=== PATIENT | male | born 1990 | race Caucasian/White ===

== ENCOUNTER 2016-10-31 17:39 | Emergency (ER) | payer OTHER ==
[2016-10-31 17:55] VITALS: BP 109/65; PULSE 87; RESP 20; TEMP 97.3
--- NOTE | 2016-10-31 19:17 | ED ---
General Adult HPI - General Chief complaint: Psychiatric Symptoms Stated complaint: Anxiety Time Seen by Provider: 10/31/16 18:33 Source: patient, RN notes reviewed Mode of arrival: ambulatory Limitations: no limitations - History of Present Illness Initial comments: Patient is a pleasant 26-year-old male presenting to the emergency department complaining of anxiety. Patient states his anxiety has been increased recently. Patient has been off his Effexor and Xanax for approximately 6 weeks. Patient developed the primary care physician today however they were unwilling to prescribe medications. Patient was given a follow-up for psychiatry however he will take 4-6 weeks to get in there. Patient omits to being depressed. Patient has stressors regarding recent divorce and sick father and increase work hours. Patient has been anxious. Patient denies suicidal ideation or thoughts. - Related Data Home Medications Medication Instructions Recorded Confirmed ALPRAZolam [Xanax] 2 mg PO BID PRN 10/31/16 10/31/16 Calcium Carbonate [Tums] 500 mg PO TID PRN 10/31/16 10/31/16 Ibuprofen [Motrin] 600 mg PO DAILY PRN 10/31/16 10/31/16 Multivitamins, Thera [Multivitamin 1 tab PO DAILY 10/31/16 10/31/16 (formulary)] Ranitidine HCl [Zantac] 75 mg PO DAILY PRN 10/31/16 10/31/16 Venlafaxine HCl [Effexor] 50 mg PO DAILY 10/31/16 10/31/16 Previous Rx's Medication Instructions Recorded ALPRAZolam [Xanax] 0.5 mg PO Q8HR PRN #10 tablet 10/31/16 Allergies Allergy/AdvReac Type Severity Reaction Status Date / Time No Known Allergies Allergy Verified 10/31/16 18:16 Review of Systems ROS Statement: Those systems with pertinent positive or pertinent negative responses have been documented in the HPI. ROS Other: All systems not noted in ROS Statement are negative. Constitutional: Denies: fever Eyes: Denies: eye pain ENT: Denies: ear pain Respiratory: Denies: cough Cardiovascular: Denies: chest pain Endocrine: Denies: fatigue Gastrointestinal: Denies: abdominal pain Genitourinary: Denies: urgency Skin: Denies: rash Neurological: Denies: headache Psychiatric: Reports: anxiety, depression. Denies: suicidal thoughts Past Medical History Past Medical History: Hypertension Additional Past Medical History / Comment(s): Severe anxiety, migraines, chronic back pain, difficulty with focusing attention. History of Any Multi-Drug Resistant Organisms: None Reported Past Surgical History: Orthopedic Surgery Additional Past Surgical History / Comment(s): Left wrist open reduction internal fixation Past Anesthesia/Blood Transfusion Reactions: No Reported Reaction Past Psychological History: Anxiety, Depression Smoking Status: Current every day smoker Past Alcohol Use History: Occasional Past Drug Use History: Marijuana - Past Family History Father Family Medical History: Cancer, CVA/TIA, Myocardial Infarction ([place]) Additional Family Medical History / Comment(s): Father is alive at age 58. Patient states he has a rare cancer and undergoing chemotherapy. Mother Family Medical History: Coronary Artery Disease (CAD), Hypertension, Syncope Additional Family Medical History / Comment(s): Mother is alive at age 54 and also has history of anxiety and depression. Sister(s) History Unknown: Yes Family Medical History: No Reported History (Patient has one sister with anxiety and depression) General Exam Limitations: no limitations General appearance: alert, in no apparent distress Head exam: Present: atraumatic Eye exam: Present: normal appearance, PERRL ENT exam: Present: normal oropharynx Neck exam: Present: normal inspection Respiratory exam: Present: normal lung sounds bilaterally Cardiovascular Exam: Present: regular rate, normal rhythm GI/Abdominal exam: Present: soft. Absent: tenderness Extremities exam: Present: normal inspection Neurological exam: Present: alert Psychiatric exam: Present: normal affect, normal mood Skin exam: Present: normal color Course Vital Signs 10/31/16 17:49 Temperature 97.3 F L Pulse Rate 87 Respiratory 20 Rate Blood Pressure 109/65 O2 Sat by Pulse 100 Oximetry Disposition Clinical Impression: Depression, Acute anxiety Disposition: HOME SELF-CARE Condition: Stable Instructions: Depression (ED), Anxiety (ED) Additional Instructions: Please follow-up with psychiatrist and primary care physician this week. Return for increased depression, thoughts of self-harm, worsening symptoms or other concerns. Prescriptions: ALPRAZolam [Xanax] 0.5 mg PO Q8HR PRN #10 tablet PRN Reason: Anxiety Referrals: None,Stated [Primary Care Provider] - 1-2 days Adam Martinez MD [STAFF PHYSICIAN] - 1-2 days Rupesh Monroy DO [Medical Doctor] - 1-2 days Time of Disposition: 19:17
== END 2016-10-31 19:32 | disposition home or self-care (01) ==
LOC: EC 17:39
DX: F32.9 Major depressive disorder, single episode, unspecified (principal); F41.9 Anxiety disorder, unspecified; I10 Essential (primary) hypertension; F17.200 Nicotine dependence, unspecified, uncomplicated; Z79.899 Other long term (current) drug therapy
CPT/HCPCS: 82075; 99284

== ENCOUNTER 2016-12-04 11:31 | Emergency (ER) | payer OTHER ==
[2016-12-04] MEDS ORDERED: IBUPROFEN 800 MG TAB PO STA (11:52)
[2016-12-04] MEDS ORDERED: ACETAMINOPHEN TAB 500 MG TAB PO STA (11:52)
--- NOTE | 2016-12-04 11:56 | ED ---
General Adult HPI - General Chief complaint: Neuro Symptoms/Deficit Stated complaint: rt leg numbness x 2 days Time Seen by Provider: 12/04/16 11:35 Source: patient, RN notes reviewed Mode of arrival: wheelchair Limitations: no limitations - History of Present Illness Initial comments: This is a 26-year-old male presents emergency Department stating that he fell asleep on the couch and he landed on his right hip since then his right hip is been very tender and he has some tingling down the right lateral aspect of his leg onto the top of his foot. Patient denies any weakness patient denies any complete numbness. Patient denies any other pain or problems when I mention that he had a low-grade fever he was unaware. Patient states he's had no cough no sore throat no ear pain. Patient denies any difficulty breathing or shortness of breath. Patient denies any dysuria hematuria urinary frequency. Patient denies any cuts or lacerations recently. - Related Data Home Medications Medication Instructions Recorded Confirmed ALPRAZolam [Xanax] 2 mg PO BID PRN 10/31/16 12/04/16 Multivitamins, Thera [Multivitamin 1 tab PO DAILY 10/31/16 12/04/16 (formulary)] Cholecalciferol [Vitamin D3] 1,000 unit PO DAILY 12/04/16 12/04/16 buPROPion HCL [Wellbutrin XL] 300 mg PO DAILY 12/04/16 12/04/16 Previous Rx's Medication Instructions Recorded Ibuprofen [Motrin] 600 mg PO Q6HR PRN #20 tab 12/04/16 Allergies Allergy/AdvReac Type Severity Reaction Status Date / Time No Known Allergies Allergy Verified 12/04/16 12:10 Review of Systems ROS Statement: Those systems with pertinent positive or pertinent negative responses have been documented in the HPI. ROS Other: All systems not noted in ROS Statement are negative. Past Medical History Past Medical History: Hypertension Additional Past Medical History / Comment(s): Severe anxiety, migraines, chronic back pain, difficulty with focusing attention. History of Any Multi-Drug Resistant Organisms: None Reported Past Surgical History: Orthopedic Surgery Additional Past Surgical History / Comment(s): Left wrist open reduction internal fixation Past Anesthesia/Blood Transfusion Reactions: No Reported Reaction Past Psychological History: Anxiety, Depression Smoking Status: Current every day smoker Past Alcohol Use History: Occasional Past Drug Use History: None Reported - Past Family History Father Family Medical History: Cancer, CVA/TIA, Myocardial Infarction ([place]) Additional Family Medical History / Comment(s): Father is alive at age 58. Patient states he has a rare cancer and undergoing chemotherapy. Mother Family Medical History: Coronary Artery Disease (CAD), Hypertension, Syncope Additional Family Medical History / Comment(s): Mother is alive at age 54 and also has history of anxiety and depression. Sister(s) History Unknown: Yes Family Medical History: No Reported History (Patient has one sister with anxiety and depression) General Exam - General Exam Comments Initial Comments: GENERAL: Patient is well-developed and well-nourished. Patient is nontoxic and well- hydrated and is in mild distress. ENT: Neck is soft and supple. No significant lymphadenopathy is noted. Oropharynx is clear. Moist mucous membranes. Neck has full range of motion without eliciting any pain. EYES: The sclera were anicteric and conjunctiva were pink and moist. Extraocular movements were intact and pupils were equal round and reactive to light. Eyelids were unremarkable. PULMONARY: Unlabored respirations. Good breath sounds bilaterally. No audible rales rhonchi or wheezing was noted. CARDIOVASCULAR: There is a regular rate and rhythm without any murmurs gallops or rubs. ABDOMEN: Soft and nontender with normal bowel sounds. SKIN: Skin is clear with no lesions or rashes and otherwise unremarkable. NEUROLOGIC: Patient is alert and oriented x3. Cranial nerves II through XII are grossly intact. Patient has normal motor function of his right leg however sensation in the lateral aspect of the leg is decreased. Normal speech, volume and content. Symmetrical smile. MUSCULOSKELETAL: Normal extremities with adequate strength and full range of motion. Patient has some tenderness to the lateral aspect of his right hip. LYMPHATICS: No significant lymphadenopathy is noted PSYCHIATRIC: Normal psychiatric evaluation. Limitations: no limitations Course Vital Signs 12/04/16 11:36 Temperature 100.3 F H Pulse Rate 88 Respiratory 16 Rate Blood Pressure 117/67 O2 Sat by Pulse 99 Oximetry Medical Decision Making - Medical Decision Making I went back in to interview the patient after his x-ray came back his results were negative for any acute injury. He stated that the pain he got considerably better after the Motrin and Tylenol. I again reviewed any possible sources of infection he denied having any. Disposition Clinical Impression: Sciatica Disposition: HOME SELF-CARE Condition: Good Instructions: Sciatica (ED) Prescriptions: Ibuprofen [Motrin] 600 mg PO Q6HR PRN #20 tab PRN Reason: For pain Referrals: Joseph Cobos MD [Primary Care Provider] - 1-2 days Time of Disposition: 13:05
--- NOTE | 2016-12-04 12:32 | XR ---
EXAMINATION TYPE: XR Hip Complete RT DATE OF EXAM: 12/04/2016 CLINICAL HISTORY: Right hip pain and numbness. TECHNIQUE: AP and frogleg views of the right hip are obtained. COMPARISON: None. FINDINGS: There is no acute fracture/dislocation evident in the right hip. Mild to moderate axial rommel int space loss is felt present. No significant spurring is seen. Femoral head shape is maintained. T he overlying soft tissue appears unremarkable. IMPRESSION: There is mild to moderate axial joint space loss in the right hip somewhat pronounced fo r patient's age.
[2016-12-04 13:12] VITALS: BP 117/62; PULSE 52; RESP 18; TEMP 99.3
== END 2016-12-04 13:12 | disposition home or self-care (01) ==
LOC: EC 11:31
DX: M54.31 Sciatica, right side (principal); M25.551 Pain in right hip; F32.9 Major depressive disorder, single episode, unspecified; F17.200 Nicotine dependence, unspecified, uncomplicated; Z79.899 Other long term (current) drug therapy
CPT/HCPCS: 73502; 99284

== ENCOUNTER 2016-12-19 18:22 | Emergency (ER) | payer OTHER ==
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
[2016-12-19 20:28] VITALS: BP 119/83; PULSE 106; RESP 18; TEMP 97.9
== END 2016-12-19 20:28 | disposition home or self-care (01) ==
LOC: EC 18:22
DX: T40.1X1A Poisoning by heroin, accidental (unintentional), initial encounter (principal); F41.9 Anxiety disorder, unspecified; F32.9 Major depressive disorder, single episode, unspecified; F17.200 Nicotine dependence, unspecified, uncomplicated; Z79.899 Other long term (current) drug therapy
CPT/HCPCS: 99284

== ENCOUNTER 2017-12-24 09:44 | Emergency (ER) | payer OTHER ==
[2017-12-24 10:07] VITALS: TEMP 98.1
[2017-12-24] MEDS ORDERED: LORazepam 1 MG TAB PO STA (10:45)
[2017-12-24 11:04] LABS: Amphetamine Screen,Urine Detected (NotDetected); Barbiturate Screen,Urine Not Detected (NotDetected); Benzodiazepines Screen,Urine Detected (NotDetected); Cocaine Screen,Urine Not Detected (NotDetected); Methadone Screen, Urine Not Detected (NotDetected); Opiate Screen,Urine Not Detected (NotDetected); Oxycodone Screen, Urine Not Detected (NotDetected); Phencyclidine Screen,Urine Not Detected (NotDetected); Tricyclic Antidepressant,Urine Not Detected (NotDetected); Urn Cannabinoid Scrn Detected (NotDetected)
--- NOTE | 2017-12-24 11:10 | ED ---
General Adult HPI - General Chief complaint: Recheck/Abnormal Lab/Rx Stated complaint: Withdrawls Time Seen by Provider: 12/24/17 10:00 Source: patient, family, RN notes reviewed Mode of arrival: ambulatory Limitations: no limitations - History of Present Illness Initial comments: This is a 27-year-old male who comes emergency Department complaining that he is out of his benzos which she abuses and he admits that he abuses them and states that he has been agitated and doesn't think he can think straight because he has not had any benzodiazepines in 2 days. Parents state earlier today he seemed like he was hallucinating but currently is at his baseline. Patient states she does get prescription for Adderall which she states she treated for benzos. Patient currently is alert and oriented 3 and has no physical complaints other than being agitated. Parents are with the patient and they think that he truly wants to get help so they will try to assist him and get into rehab center. - Related Data Home Medications Medication Instructions Recorded Confirmed ALPRAZolam [Xanax] 2 mg PO TID PRN 10/31/16 12/24/17 Cholecalciferol [Vitamin D3] 1,000 unit PO DAILY 12/04/16 12/24/17 Cyanocobalamin (Vitamin B-12) 1,000 mcg PO DAILY 12/24/17 12/24/17 [Vitamin B-12] Dextroamphetamine/Amphetamine 30 mg PO TID 12/24/17 12/24/17 [Adderall] Allergies Allergy/AdvReac Type Severity Reaction Status Date / Time No Known Allergies Allergy Verified 12/24/17 11:03 Review of Systems ROS Statement: Those systems with pertinent positive or pertinent negative responses have been documented in the HPI. ROS Other: All systems not noted in ROS Statement are negative. Past Medical History Past Medical History: Hypertension Additional Past Medical History / Comment(s): Severe anxiety, migraines, chronic back pain, difficulty with focusing attention. History of Any Multi-Drug Resistant Organisms: None Reported Past Surgical History: Orthopedic Surgery Additional Past Surgical History / Comment(s): Left wrist open reduction internal fixation Past Anesthesia/Blood Transfusion Reactions: No Reported Reaction Past Psychological History: Anxiety, Depression Smoking Status: Current every day smoker Past Alcohol Use History: Occasional Past Drug Use History: None Reported, Heroin, Marijuana - Past Family History Father Family Medical History: Cancer, CVA/TIA, Myocardial Infarction ([place]) Additional Family Medical History / Comment(s): Father is alive at age 58. Patient states he has a rare cancer and undergoing chemotherapy. Mother Family Medical History: Coronary Artery Disease (CAD), Hypertension, Syncope Additional Family Medical History / Comment(s): Mother is alive at age 54 and also has history of anxiety and depression. Sister(s) History Unknown: Yes Family Medical History: No Reported History (Patient has one sister with anxiety and depression) General Exam - General Exam Comments Initial Comments: GENERAL: Patient is well-developed and well-nourished. Patient is nontoxic and well- hydrated and is in no acute distress. ENT: Neck is soft and supple. No significant lymphadenopathy is noted. Oropharynx is clear. Moist mucous membranes. Neck has full range of motion without eliciting any pain. EYES: The sclera were anicteric and conjunctiva were pink and moist. Extraocular movements were intact and pupils were equal round and reactive to light. Eyelids were unremarkable. SKIN: Skin is clear with no lesions or rashes and otherwise unremarkable. NEUROLOGIC: Patient is alert and oriented x3. Cranial nerves II through XII are grossly intact. Motor and sensory are also intact. Normal speech, volume and content. Symmetrical smile. MUSCULOSKELETAL: Normal extremities with adequate strength and full range of motion. LYMPHATICS: No significant lymphadenopathy is noted PSYCHIATRIC: Patient is anxious Limitations: no limitations Course Vital Signs 12/24/17 09:59 Temperature 98.1 F Pulse Rate 104 H Respiratory 18 Rate Blood Pressure 125/75 O2 Sat by Pulse 98 Oximetry Medical Decision Making - Lab Data Lab Results 12/24/17 Range/Units 10:45 Urine Opiates Screen Not Detected (NotDetected) Ur Oxycodone Screen Not Detected (NotDetected) Urine Methadone Screen Not Detected (NotDetected) Ur Propoxyphene Screen Not Detected (NotDetected) Ur Barbiturates Screen Not Detected (NotDetected) U Tricyclic Antidepress Not Detected (NotDetected) Ur Phencyclidine Scrn Not Detected (NotDetected) Ur Amphetamines Screen Detected H (NotDetected) U Methamphetamines Scrn Not Detected (NotDetected) U Benzodiazepines Scrn Detected H (NotDetected) Urine Cocaine Screen Not Detected (NotDetected) U Marijuana (THC) Screen Detected H (NotDetected) Disposition Clinical Impression: Benzodiazepine abuse, Amphetamine abuse Disposition: HOME SELF-CARE Condition: Good Instructions: Benzodiazepine Abuse (ED) Is patient prescribed a controlled substance at d/c from ED?: No Referrals: None,Stated [Primary Care Provider] - 1-2 days Time of Disposition: 11:14
[2017-12-24 11:31] VITALS: BP 124/65; PULSE 96; RESP 16
== END 2017-12-24 11:30 | disposition home or self-care (01) ==
LOC: EC 09:44
DX: F15.10 Other stimulant abuse, uncomplicated (principal); F19.10 Other psychoactive substance abuse, uncomplicated; F41.9 Anxiety disorder, unspecified; F32.9 Major depressive disorder, single episode, unspecified; F17.200 Nicotine dependence, unspecified, uncomplicated; Z79.899 Other long term (current) drug therapy; Z81.8 Family history of other mental and behavioral disorders
CPT/HCPCS: 80306; 99284

== ENCOUNTER 2018-03-06 08:36 | Emergency (ER) | payer OTHER ==
[2018-03-06] MEDS ORDERED: SODIUM CHLORIDE 0.9% 1,000 ML IV STA (08:38)
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
[2018-03-06 09:21] LABS: Basophils % (A) 1 %; Eosinophils # (A) 0.2 k/uL (0-0.7); Eosinophils % (A) 4 %; HGB 13.8 gm/dL (13.0-17.5); Lymphocytes # (A) 1.6 k/uL (1.0-4.8); Lymphocytes % (A) 28 %; MCH 29.1 pg (25.0-35.0); MCHC 32.8 g/dL (31.0-37.0); MCV 88.8 fL (80.0-100.0); Mean Platelet Volume 8.2; Monocytes # (A) 0.3 k/uL (0-1.0); Monocytes % (A) 6 %; Neutrophils # (A) 3.4 k/uL (1.3-7.7); Neutrophils % (A) 60 %; Platelet Count 202 k/uL (150-450); RBC 4.73 m/uL (4.30-5.90); RDW 12.7 % (11.5-15.5); WBC 5.7 k/uL (3.8-10.6)
[2018-03-06 09:29] LABS: ALT 52 U/L (21-72); AST 44 U/L (17-59); Albumin 4.3 g/dL (3.5-5.0); Alcohol <10 mg/dL; Alkaline Phosphatase 56 U/L (38-126); Anion Gap 10 mmol/L; Blood Urea Nitrogen 15 mg/dL (9-20); Calcium 9.7 mg/dL (8.4-10.2); Carbon Dioxide 26 mmol/L (22-30); Chloride 105 mmol/L (98-107); Glucose 111 mg/dL (74-99); Potassium 4.3 mmol/L (3.5-5.1); Sodium 141 mmol/L (137-145); Total Bilirubin 0.3 mg/dL (0.2-1.3); Total Protein 7.2 g/dL (6.3-8.2)
[2018-03-06 09:33] LABS: Partial Thromboplastin Time 22.4 sec (22.0-30.0); Prothrombin Time 9.8 sec (9.0-12.0)
[2018-03-06 09:43] LABS: Creatine Kinase 398 U/L (55-170)
[2018-03-06 09:56] LABS: Creatine Kinase MB 0.5 ng/mL (0.0-2.4); Troponin I <0.012 ng/mL (0.000-0.034)
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
[2018-03-06 10:02] LABS: Appearance,Urine Clear (Clear); Bilirubin,Urine Negative (Negative); Blood,Urine Negative (Negative); Color,Urine Light Yellow; Glucose,Urine (UA) Negative (Negative); Ketones,Urine Negative (Negative); Leukocyte Esterase,Urine Negative (Negative); Nitrite,Urine Negative (Negative); PH, Urine 6.5 (5.0-8.0); Protein,Urine Negative (Negative); Specific Gravity,Urine 1.011 (1.001-1.035); Urobilinogen,Urine <2.0 mg/dL (<2.0)
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
[2018-03-06 10:14] LABS: Amphetamine Screen,Urine Not Detected (NotDetected); Barbiturate Screen,Urine Not Detected (NotDetected); Benzodiazepines Screen,Urine Detected (NotDetected); Cocaine Screen,Urine Not Detected (NotDetected); Methadone Screen, Urine Detected (NotDetected); Opiate Screen,Urine Not Detected (NotDetected); Oxycodone Screen, Urine Not Detected (NotDetected); Phencyclidine Screen,Urine Not Detected (NotDetected); Tricyclic Antidepressant,Urine Not Detected (NotDetected); Urn Cannabinoid Scrn Detected (NotDetected)
[2018-03-06 11:30] VITALS: BP 128/69; PULSE 78; RESP 16; TEMP 98
== END 2018-03-06 11:15 | disposition home or self-care (01) ==
LOC: EC 08:36
DX: Z04.1 Encounter for examination and observation following transport accident (principal); F17.200 Nicotine dependence, unspecified, uncomplicated; Z79.899 Other long term (current) drug therapy
CPT/HCPCS: 36415; 93005; 86900; 86901; 80053; 82550; 82553; 84484; 85025; 85610; 85730; 86850; 81003; 80306; 80320; 72125; 70450; 71260; 74177; 99285; 96360; 96361; Q9967

== ENCOUNTER → 2018-07-18 | Outpatient (CLI) | payer OTHER ==
[2018-07-18 09:11] LABS: HCT 38.5 % (39.0-53.0); HGB 12.5 gm/dL (13.0-17.5); MCH 29.9 pg (25.0-35.0); MCHC 32.4 g/dL (31.0-37.0); MCV 92.1 fL (80.0-100.0); Mean Platelet Volume 7.6; Platelet Count 189 k/uL (150-450); RBC 4.18 m/uL (4.30-5.90); RDW 13.2 % (11.5-15.5); WBC 7.2 k/uL (3.8-10.6)
== END | disposition home or self-care (01) ==
LOC: LABWHC1 08:44
PROVIDERS: ATTEND Internal Medicine
DX: E29.1 Testicular hypofunction (principal); R53.82 Chronic fatigue, unspecified
CPT/HCPCS: 36415; 82670; 83001; 83002; 84146; 84402; 84403; 85027

== ENCOUNTER 2018-07-24 06:06 | Day surgery (SDC) | payer OTHER ==
[2018-07-18 11:39] VITALS: BMI 25.7
[~2018-07-24 06:06] MED LIST: DEXAMETHASONE SOD PHOSPHATE 10 MG/ML 1 ML VIAL IV ONE; HEPARIN SODIUM,PORCINE 5,000 UNIT/ML 1 ML VIAL SQ ONE; HYDROmorphone 0.5 MG/0.5 ML SYRINGE IVP PRN; LACTATED RINGERS 1,000 ML IV SCH; LIDOCAINE 1% 20 ML VIAL (10MG/ML) FOR IV START INTRADERMA PRN; MIDAZOLAM (PF) 2 MG/2 ML VIAL IV PRN; ONDANSETRON 4 MG/2 ML VIAL IVP ONE; Pre Op ABX Message 1 EACH MISC MISCELLANE ONE; SCOPOLAMINE 1.5MG/72HR PATCH TRANSDERM ONE
[2018-07-24 06:46] VITALS: RESP 16
[2018-07-24] MEDS ORDERED: LIDOCAINE 1% INJ 10MG/ML (20 ML MDV) ONE (08:03)
[2018-07-24] MEDS ORDERED: PROPOFOL 10 MG/ML 20 ML VIAL IV ONE (08:03)
[2018-07-24] MEDS ORDERED: MIDAZOLAM 2 MG/2 ML VIAL ONE (08:03)
[2018-07-24] MEDS ORDERED: BUPIVACAIN-EPI 0.5%-1:200,000 30 ML VIAL SQ ONE ×2 (08:24)
[2018-07-24] MEDS ORDERED: NALOXONE 0.4 MG/ML 1 ML VIAL IV PRN (08:52)
[2018-07-24] MEDS ORDERED: ALPRAZolam 1 MG TAB PO STA (08:57)
--- NOTE | 2018-07-24 08:58 | P.OP ---
Date of Procedure: 07/24/18 Procedure(s) Performed: PREOPERATIVE DIAGNOSIS: Right upper back lipoma POSTOPERATIVE DIAGNOSIS: Same PROCEDURE: Excision, intermediate closure SURGEON: Wayne EBL: Minimal ANESTHESIA: Gen. COMPLICATIONS: None OPERATIVE PROCEDURE: Patient placed in the left decubitus position. The right upper back was prepped and draped in usual sterile fashion. The area was localized with Marcaine. A longitudinal incision was made over the mass. Dissection through subcutaneous fat and superficial fascia took place using electrocautery. The patient's lipomatous mass was able to be removed using primarily blunt dissection and sparing use of electrocautery. The patient's mass measured 5.5 x 4 cm in size. This was sent to pathology. No bleeding was seen. The fascial layer was closed using 3-0 Vicryl sutures. The subcutaneous tissues were closed using 3-0 Vicryl sutures and the skin was closed using a running 4-0 Monocryl stitch. Length of intermediate closure 5 cm. Skin glue was then utilized. DISPOSITION: Stable to recovery room
[2018-07-24 09:04] VITALS: TEMP 97.9
[2018-07-24] MEDS ORDERED: METHADONE 10 MG TAB PO ONE (09:15)
[2018-07-24] MEDS ORDERED: METHADONE 5 MG TAB PO ONE (09:15)
[2018-07-24] MEDS ORDERED: ALPRAZolam 1 MG TAB PO ONE (09:16)
[2018-07-24] MEDS ORDERED: LACTATED RINGERS 1,000 ML IV ONE (09:20)
[2018-07-24] MEDS ORDERED: KETOROLAC 30 MG/ML 1 ML VIAL IVP ONE (09:21)
[2018-07-24] MEDS ORDERED: ONDANSETRON 4 MG/2 ML VIAL IVP ONE (09:24)
[2018-07-24 09:42] VITALS: BP 121/71; PULSE 80
== END 2018-07-24 10:08 | disposition home or self-care (01) ==
LOC: OR 06:06
PROVIDERS: ATTEND Surgery
DX: D17.1 Benign lipomatous neoplasm of skin and subcutaneous tissue of trunk (principal); I10 Essential (primary) hypertension; F41.9 Anxiety disorder, unspecified; G43.909 Migraine, unspecified, not intractable, without status migrainosus; G89.29 Other chronic pain; M54.9 Dorsalgia, unspecified; F32.9 Major depressive disorder, single episode, unspecified; F17.200 Nicotine dependence, unspecified, uncomplicated; Z79.899 Other long term (current) drug therapy
CPT/HCPCS: 88304; 21931; J2250; J2405; J2001; J1885; J2704

== ENCOUNTER → 2018-08-01 | Outpatient (CLI) | payer OTHER ==
--- NOTE | 2018-08-01 11:16 | MR ---
EXAMINATION TYPE: MR knee RT wo con DATE OF EXAM: 08/01/2018 COMPARISON: None HISTORY: Pain in right knee, instability TECHNIQUE: Multiplanar, multisequence imaging of the right knee is performed without IV contrast. FINDINGS: MEDIAL MENISCUS: Some linear horizontal signal is present within the medial meniscus without clear co mmunication to the articular surface LATERAL MENISCUS: Anterior and posterior horns are intact without tear. CRUCIATE LIGAMENTS: The anterior and posterior cruciate ligaments are intact and unremarkable. COLLATERAL LIGAMENTS: The medial collateral ligament and lateral collateral ligament complex are inta ct and unremarkable. EXTENSOR MECHANISM: Visualized quadriceps and patellar tendons are intact. EFFUSION: No significant suprapatellar joint effusion. POPLITEAL CYST: No popliteal/mcbride cyst. TRICOMPARTMENT SPACES: Maintained CARTILAGE: Unremarkable BONE MARROW SIGNAL: Probable bone island present in the proximal tibia lateral aspect, focal low sign al seen on T1 and T2-weighted sequences measuring 5 to 6 mm, no bone marrow edema OTHER: No additional significant abnormality is appreciated. IMPRESSION: No evident meniscal or ligamentous tear.
== END | disposition home or self-care (01) ==
LOC: RADMRIMAIN 08:38
PROVIDERS: ATTEND Nurse Practitioner Family
DX: M25.561 Pain in right knee (principal); M25.361 Other instability, right knee

== ENCOUNTER → 2018-08-01 | Outpatient (CLI) | payer OTHER ==
[2018-08-01 16:31] LABS: T4, Free (Free Thyroxine) 1.2 ng/dL (0.80-1.80)
== END | disposition home or self-care (01) ==
LOC: LABWHC1 08:13
PROVIDERS: ATTEND Internal Medicine
DX: E29.1 Testicular hypofunction (principal)
CPT/HCPCS: 36415; 82024; 82533; 84305; 84439; 84443

== ENCOUNTER → 2018-08-07 | Outpatient (CLI) | payer OTHER ==
--- NOTE | 2018-08-08 03:06 | MR ---
EXAMINATION TYPE: MR pituitary wo/w con DATE OF EXAM: 08/07/2018 COMPARISON: None HISTORY: Hypogonadism TECHNIQUE: Multiplanar and multiecho imaging of the pituitary gland was performed without and with IV contrast. The IV contrast was 7.5 mL gadolinium FINDINGS: Pituitary gland has normal size and contour. Pituitary stalk is in the midline. There is no deviation . Optic chiasm appears normal. There is uniform enhancement of the pituitary gland. Pituitary gland m easures 5.6 x 8.2 mm. There is normal enhancement of the cavernous sinus. There is normal flow-void i n the anterior middle and posterior cerebral arteries. Sphenoid bone appears normal. . IMPRESSION: Negative exam. No pituitary abnormality seen.
== END ==
LOC: RADMRIMAIN 20:36
PROVIDERS: ATTEND Internal Medicine
DX: E23.6 Other disorders of pituitary gland (principal); E29.1 Testicular hypofunction
CPT/HCPCS: 70553; A9585

== ENCOUNTER → 2018-09-12 | Outpatient (CLI) | payer OTHER ==
[2018-09-12 08:48] LABS: HCT 47.3 % (39.0-53.0); HGB 15.3 gm/dL (13.0-17.5); MCH 29.8 pg (25.0-35.0); MCHC 32.3 g/dL (31.0-37.0); MCV 92.2 fL (80.0-100.0); Platelet Count 306 k/uL (150-450); RBC 5.13 m/uL (4.30-5.90); RDW 13.7 % (11.5-15.5)
== END | disposition home or self-care (01) ==
LOC: LABWHC1 08:04
PROVIDERS: ATTEND Internal Medicine
DX: E29.1 Testicular hypofunction (principal)
CPT/HCPCS: 36415; 84153; 84402; 84403; 85027

== ENCOUNTER → 2018-12-18 | Outpatient (CLI) | payer OTHER ==
[2018-12-18 09:22] LABS: HGB 15.1 gm/dL (13.0-17.5); MCH 29.9 pg (25.0-35.0); MCHC 32.1 g/dL (31.0-37.0); MCV 93.2 fL (80.0-100.0); Mean Platelet Volume 7.7; Platelet Count 315 k/uL (150-450); RBC 5.04 m/uL (4.30-5.90); RDW 14.7 % (11.5-15.5); WBC 10.4 k/uL (3.8-10.6)
== END | disposition home or self-care (01) ==
LOC: LABWHC1 08:53
PROVIDERS: ATTEND Internal Medicine
DX: E29.1 Testicular hypofunction (principal)
CPT/HCPCS: 36415; 84153; 84402; 84403; 85027

== ENCOUNTER 2019-05-27 07:56 | Emergency (ER) | payer OTHER ==
[2019-05-27 08:03] VITALS: BP 133/81; PULSE 82; RESP 18; TEMP 98.5
--- NOTE | 2019-05-27 09:42 | ED ---
Psych HPI - General Chief Complaint: Psychiatric Symptoms Stated Complaint: Mental health Time Seen by Provider: 05/27/19 08:04 Source: patient Mode of arrival: ambulatory - History of Present Illness Initial Comments: 29 oh male presenting today for chief complaint of "forced to be here". Patient's parents position patient secondary to patient having hallucinations, paranoid behavior the state this is happening the past with drug abuse. Patient denies any hallucinations suicidal homicidal ideation patient has no complaints. Patient states he will be compliant however with the petition for psychiatric evaluation. - Related Data Home Medications Medication Instructions Recorded Confirmed Ergocalciferol [Vitamin D2] 50,000 unit PO FR 07/18/18 05/27/19 ARIPiprazole [Abilify] 2 mg PO HS 05/27/19 05/27/19 Anastrozole 1 mg PO DAILY 05/27/19 05/27/19 Dextroamphetamine/Amphetamine 30 mg PO BID 05/27/19 05/27/19 [Adderall Xr] Testosterone Cypionate 150 mg IM Q14D 05/27/19 05/27/19 [Depo-Testosterone] clonazePAM [KlonoPIN] 2 mg PO TID PRN 05/27/19 05/27/19 Allergies Allergy/AdvReac Type Severity Reaction Status Date / Time No Known Allergies Allergy Verified 05/27/19 08:03 Review of Systems ROS Statement: Those systems with pertinent positive or pertinent negative responses have been documented in the HPI. ROS Other: All systems not noted in ROS Statement are negative. Past Medical History Past Medical History: Hypertension Additional Past Medical History / Comment(s): Severe anxiety, migraines, chronic back pain, difficulty with focusing attention. History of Any Multi-Drug Resistant Organisms: None Reported Past Surgical History: Orthopedic Surgery Additional Past Surgical History / Comment(s): Left wrist open reduction internal fixation Past Anesthesia/Blood Transfusion Reactions: No Reported Reaction Past Psychological History: Anxiety, Depression Smoking Status: Current every day smoker Past Alcohol Use History: None Reported Past Drug Use History: None Reported - Past Family History Father Family Medical History: Cancer, CVA/TIA, Myocardial Infarction ([place]) Additional Family Medical History / Comment(s): Father is alive at age 58. Patient states he has a rare cancer and undergoing chemotherapy. Mother Family Medical History: Coronary Artery Disease (CAD), Hypertension, Syncope Additional Family Medical History / Comment(s): Mother is alive at age 54 and also has history of anxiety and depression. Sister(s) History Unknown: Yes Family Medical History: No Reported History General Exam - General Exam Comments Initial Comments: General: The patient is awake and alert, in no distress Eye: +3 mm pupils are equal, round and reactive to light, extra-ocular movements are intact. No nystagmus. There is normal conjunctiva bilaterally. No signs of icterus. Cardiovascular: There is a regular rate and rhythm. No murmur, rub or gallop is appreciated. Respiratory: Lungs are clear to auscultation, respirations are non-labored, breath sounds are equal. No wheezes, stridor, rales, or rhonchi. Musculoskeletal: Normal ROM, no tenderness. Strength 5/5. Sensation intact. Radial pulses equal bilaterally 2+. Neurological: A&O x 3. CN II-XII intact grossly, There are no obvious motor or sensory deficits. Coordination appears grossly intact. Speech is normal. Skin: Skin is warm and dry and no rashes or lesions are noted. Psychiatric: Cooperative, appears agitated but is not aggressive. No paranoid behavior or darting eye noted. Limitations: no limitations Course Vital Signs 05/27/19 08:00 Temperature 98.5 F Pulse Rate 82 Respiratory 18 Rate Blood Pressure 133/81 O2 Sat by Pulse 98 Oximetry Medical Decision Making - Medical Decision Making 29-year-old male presenting today for chief complaint of psychiatric evaluation. Family petition patient for having auditory and visual hallucination complaints. Patient has history of substance abuse with psychosis. patient has no stated complaints denies behaviors, denies suicidal and homicidal ideations. Cooperative but appears agitated which appears to be induced by having to do evaluation. No abnormal physical examination findings. MEdically cleared for evaluation, EPS nurse after evaluating patient consulted psychiatry who recommended discontinuing medications, or decreasing dosage of adderral. I discussed this with patient, psychiatry services did not see any findings of psychosis and recommended discharge. As patient did no appears acutely psychotic on multiple reevaluations. Patient was discharged appearing well. - Lab Data Lab Results 05/27/19 Range/Units 10:45 Urine Opiates Screen Not Detected (NotDetected) Ur Oxycodone Screen Not Detected (NotDetected) Urine Methadone Screen Not Detected (NotDetected) Ur Propoxyphene Screen Not Detected (NotDetected) Ur Barbiturates Screen Not Detected (NotDetected) U Tricyclic Antidepress Not Detected (NotDetected) Ur Phencyclidine Scrn Not Detected (NotDetected) Ur Amphetamines Screen Detected H (NotDetected) U Methamphetamines Scrn Not Detected (NotDetected) U Benzodiazepines Scrn Detected H (NotDetected) Urine Cocaine Screen Not Detected (NotDetected) U Marijuana (THC) Screen Detected H (NotDetected) Disposition Clinical Impression: Evaluation by psychiatric service required Disposition: HOME SELF-CARE Condition: Good Instructions (If sedation given, give patient instructions): Methamphetamine Abuse (ED), Polysubstance Abuse (ED) Additional Instructions: Please use medication as discussed. Please follow-up with family doctor in the next 2 days of symptoms have not improved. Is patient prescribed a controlled substance at d/c from ED?: No Referrals: Becky Cristobal MD [Primary Care Provider] - 1-2 days Time of Disposition: 12:54
[2019-05-27] MEDS ORDERED: FLUTICASONE 50MCG/SPRAY NASAL 16GM EA NOSTRIL PRN (10:38)
[2019-05-27 11:20] LABS: Amphetamine Screen,Urine Detected (NotDetected); Barbiturate Screen,Urine Not Detected (NotDetected); Benzodiazepines Screen,Urine Detected (NotDetected); Cocaine Screen,Urine Not Detected (NotDetected); Methadone Screen, Urine Not Detected (NotDetected); Opiate Screen,Urine Not Detected (NotDetected); Oxycodone Screen, Urine Not Detected (NotDetected); Phencyclidine Screen,Urine Not Detected (NotDetected); Tricyclic Antidepressant,Urine Not Detected (NotDetected); Urn Cannabinoid Scrn Detected (NotDetected)
== END 2019-05-27 13:45 | disposition home or self-care (01) ==
LOC: EC 07:56
DX: Z04.6 Encounter for general psychiatric examination, requested by authority (principal); F41.9 Anxiety disorder, unspecified; F32.9 Major depressive disorder, single episode, unspecified; I10 Essential (primary) hypertension; F17.200 Nicotine dependence, unspecified, uncomplicated; Z79.899 Other long term (current) drug therapy
CPT/HCPCS: 80306; 82075; 99284

== ENCOUNTER 2019-11-23 15:57 | Emergency (ER) | payer BC, OTHER ==
[2019-11-23 16:04] VITALS: TEMP 98.2
--- NOTE | 2019-11-23 17:40 | ED ---
Psych HPI - General Chief Complaint: Psychiatric Symptoms Stated Complaint: Mental health Time Seen by Provider: 11/23/19 16:07 Source: patient Mode of arrival: ambulatory - History of Present Illness Initial Comments: 29yo male presenting today for cc of voices in head x past few days. Patient states that he has had voices in his head that commentates on his own thoughts he states its mostly negative comments but no voices telling him to hurt himself or others. Patient denies suicidal or homicidal ideations. patient states this has happened in the past and he is currently on abilify and clonidine. Patient states that voice were there in a nor he then went away and came back when he started working again. Patient denies additional complaints. Patient denies any recent fever, chills, shortness of breath, chest pain, back pain, abdominal pain, nausea or vomiting, numbness or tingling, dysuria or hematuria, constipation or diarrhea, headaches or visual changes. Patient appears well on arrival no signs of acute distress. Denies alcohol or substance abuse. - Related Data Home Medications Medication Instructions Recorded Confirmed Ergocalciferol [Vitamin D2] 50,000 unit PO FR 07/18/18 05/27/19 ARIPiprazole [Abilify] 2 mg PO HS 05/27/19 05/27/19 Anastrozole 1 mg PO DAILY 05/27/19 05/27/19 Dextroamphetamine/Amphetamine 30 mg PO BID 05/27/19 05/27/19 [Adderall Xr] Testosterone Cypionate 150 mg IM Q14D 05/27/19 05/27/19 [Depo-Testosterone] clonazePAM [KlonoPIN] 2 mg PO TID PRN 05/27/19 05/27/19 Allergies Allergy/AdvReac Type Severity Reaction Status Date / Time No Known Allergies Allergy Verified 11/23/19 16:04 Review of Systems ROS Statement: Those systems with pertinent positive or pertinent negative responses have been documented in the HPI. ROS Other: All systems not noted in ROS Statement are negative. Past Medical History Past Medical History: Hypertension Additional Past Medical History / Comment(s): Severe anxiety, migraines, chronic back pain, difficulty with focusing attention. History of Any Multi-Drug Resistant Organisms: None Reported Past Surgical History: Orthopedic Surgery Additional Past Surgical History / Comment(s): Left wrist open reduction internal fixation Past Anesthesia/Blood Transfusion Reactions: No Reported Reaction Past Psychological History: Anxiety, Depression Smoking Status: Current every day smoker Past Alcohol Use History: None Reported Past Drug Use History: None Reported - Past Family History Father Family Medical History: Cancer, CVA/TIA, Myocardial Infarction ([place]) Additional Family Medical History / Comment(s): Father is alive at age 58. Patient states he has a rare cancer and undergoing chemotherapy. Mother Family Medical History: Coronary Artery Disease (CAD), Hypertension, Syncope Additional Family Medical History / Comment(s): Mother is alive at age 54 and also has history of anxiety and depression. Sister(s) History Unknown: Yes Family Medical History: No Reported History General Exam - General Exam Comments Initial Comments: General: The patient is awake and alert, in no distress Eye: Pupils are equal, round and reactive to light, extra-ocular movements are intact. No nystagmus. There is normal conjunctiva bilaterally. No signs of icterus. Ears, nose, mouth and throat: There are moist mucous membranes and no oral lesions. Neck: The neck is supple, there is no tenderness or JVD. Cardiovascular: There is a regular rate and rhythm. No murmur, rub or gallop is appreciated. Respiratory: Lungs are clear to auscultation, respirations are non-labored, breath sounds are equal. No wheezes, stridor, rales, or rhonchi. Gastrointestinal: Soft, non-distended, non-tender abdomen without masses or organomegaly noted. There is no rebound or guarding present. Musculoskeletal: Normal ROM, no tenderness. Strength 5/5. Sensation intact. Pulses equal bilaterally 2+. Neurological: A&O x 3. CN II-XII intact, There are no obvious motor or sensory deficits. Coordination appears grossly intact. Speech is normal. Skin: Skin is warm and dry and no rashes or lesions are noted. Psychiatric: Cooperative, appropriate mood & affect, normal judgment. Limitations: no limitations Course Vital Signs 11/23/19 16:02 Temperature 98.2 F Pulse Rate 93 Respiratory 20 Rate Blood Pressure 128/82 O2 Sat by Pulse 99 Oximetry Medical Decision Making - Medical Decision Making Male presented for forces and had he states is expresses before he states he has a psychiatric condition. Patient denies it telling him to harm himself or others he denies suicidal homicidal ideation. Patient states he does not want to be admitted. She came to the hospital voluntarily. Patient was evaluated by EPS they consulted psychiatry recommended discharge a patient at this time The patient is a harm to himself or others he does not appear acutely psychotic acting appropriately answering questions appropriately. No abnormal physical examination findings. She was discharged with safety plan and outpatient follow-up Disposition Clinical Impression: Auditory hallucinations Disposition: HOME SELF-CARE Condition: Good Instructions (If sedation given, give patient instructions): Psychiatric Navneet casanova (ED) Additional Instructions: Please use medication as discussed. Please follow-up with family doctor in the next 2 days.. Please return to emergency room if the symptoms increase or worsen or for any other concerns. Is patient prescribed a controlled substance at d/c from ED?: No Referrals: Becky Cristobal MD [Primary Care Provider] - 1-2 days Time of Disposition: 17:39
[2019-11-23 18:03] VITALS: BP 125/74; PULSE 74; RESP 16
== END 2019-11-23 18:02 | disposition home or self-care (01) ==
LOC: EC 15:57
DX: R44.0 Auditory hallucinations (principal); F41.9 Anxiety disorder, unspecified; F32.9 Major depressive disorder, single episode, unspecified; F17.200 Nicotine dependence, unspecified, uncomplicated
CPT/HCPCS: 82075; 99285

== ENCOUNTER 2019-11-27 11:46 | Inpatient (IN) | payer BC, MEDICAID ==
--- NOTE | 2019-11-27 12:41 | ED ---
General Adult HPI - General Chief complaint: Psychiatric Symptoms Stated complaint: Mental Health Time Seen by Provider: 11/27/19 11:55 Source: patient, RN notes reviewed, old records reviewed Mode of arrival: ambulatory Limitations: altered mental status - History of Present Illness Initial comments: This is a 29-year-old male who presents emergency Department complaining of having auditory hallucinations. Patient states she's been hearing voices for quite a while but is getting progressively worse and is at the point where it's difficult for him to concentrate at work. Patient states the voices are constant and just exacerbate whatever subjective states about at that time. Patient states she's also been very paranoid. Patient denies any suicidal homicidal ideations. Patient states she was here this weekend but they didn't have been from so he came back today. Patient denies any physical complaints whatsoever. Patient denies any drug use except for marijuana - Related Data Home Medications Medication Instructions Recorded Confirmed Ergocalciferol [Vitamin D2] 50,000 unit PO FR 07/18/18 05/27/19 ARIPiprazole [Abilify] 2 mg PO HS 05/27/19 05/27/19 Anastrozole 1 mg PO DAILY 05/27/19 05/27/19 Dextroamphetamine/Amphetamine 30 mg PO BID 05/27/19 05/27/19 [Adderall Xr] Testosterone Cypionate 150 mg IM Q14D 05/27/19 05/27/19 [Depo-Testosterone] clonazePAM [KlonoPIN] 2 mg PO TID PRN 05/27/19 05/27/19 Allergies Allergy/AdvReac Type Severity Reaction Status Date / Time No Known Allergies Allergy Verified 11/23/19 16:04 Review of Systems ROS Statement: Those systems with pertinent positive or pertinent negative responses have been documented in the HPI. ROS Other: All systems not noted in ROS Statement are negative. Past Medical History Past Medical History: Hypertension Additional Past Medical History / Comment(s): Severe anxiety, migraines, chronic back pain, difficulty with focusing attention. History of Any Multi-Drug Resistant Organisms: None Reported Past Surgical History: Orthopedic Surgery Additional Past Surgical History / Comment(s): Left wrist open reduction internal fixation Past Anesthesia/Blood Transfusion Reactions: No Reported Reaction Past Psychological History: Anxiety, Depression Past Alcohol Use History: None Reported Past Drug Use History: None Reported - Past Family History Father Family Medical History: Cancer, CVA/TIA, Myocardial Infarction ([place]) Additional Family Medical History / Comment(s): Father is alive at age 58. Patient states he has a rare cancer and undergoing chemotherapy. Mother Family Medical History: Coronary Artery Disease (CAD), Hypertension, Syncope Additional Family Medical History / Comment(s): Mother is alive at age 54 and also has history of anxiety and depression. Sister(s) History Unknown: Yes Family Medical History: No Reported History General Exam - General Exam Comments Initial Comments: GENERAL: Patient is well-developed and well-nourished. Patient is nontoxic and well- hydrated and is in no acute distress. ENT: Neck is soft and supple. No significant lymphadenopathy is noted. Oropharynx i s clear. Moist mucous membranes. Neck has full range of motion without eliciting any pain. EYES: The sclera were anicteric and conjunctiva were pink and moist. Extraocular movements were intact and pupils were equal round and reactive to light. Eyelids were unremarkable. PULMONARY: Unlabored respirations. Good breath sounds bilaterally. No audible rales rhonchi or wheezing was noted. CARDIOVASCULAR: There is a regular rate and rhythm without any murmurs gallops or rubs. ABDOMEN: Soft and nontender with normal bowel sounds. SKIN: Skin is clear with no lesions or rashes and otherwise unremarkable. NEUROLOGIC: Patient is alert and oriented x3. Cranial nerves II through XII are grossly intact. Motor and sensory are also intact. Normal speech, volume and content. Symmetrical smile. MUSCULOSKELETAL: Normal extremities with adequate strength and full range of motion. LYMPHATICS: No significant lymphadenopathy is noted PSYCHIATRIC: Normal psychiatric evaluation. Limitations: altered mental status Course Vital Signs 11/27/19 11:52 Temperature 98.3 F Pulse Rate 125 H Respiratory 18 Rate Blood Pressure 112/70 O2 Sat by Pulse 98 Oximetry Medical Decision Making - Lab Data Lab Results 11/27/19 Range/Units 13:02 Urine Opiates Screen Not Detected (NotDetected) Ur Oxycodone Screen Not Detected (NotDetected) Urine Methadone Screen Not Detected (NotDetected) Ur Propoxyphene Screen Not Detected (NotDetected) Ur Barbiturates Screen Not Detected (NotDetected) U Tricyclic Antidepress Not Detected (NotDetected) Ur Phencyclidine Scrn Not Detected (NotDetected) Ur Amphetamines Screen Detected H (NotDetected) U Methamphetamines Scrn Not Detected (NotDetected) U Benzodiazepines Scrn Detected H (NotDetected) Urine Cocaine Screen Not Detected (NotDetected) U Marijuana (THC) Screen Detected H (NotDetected) Disposition Clinical Impression: Acute psychosis Disposition: ADMITTED IP TO THIS HOSP Referrals: Becky Cristobal MD [Primary Care Provider] - 1-2 days Time of Disposition: 14:16
[2019-11-27 13:32] LABS: Amphetamine Screen,Urine Detected (NotDetected); Barbiturate Screen,Urine Not Detected (NotDetected); Benzodiazepines Screen,Urine Detected (NotDetected); Cocaine Screen,Urine Not Detected (NotDetected); Methadone Screen, Urine Not Detected (NotDetected); Opiate Screen,Urine Not Detected (NotDetected); Oxycodone Screen, Urine Not Detected (NotDetected); Phencyclidine Screen,Urine Not Detected (NotDetected); Tricyclic Antidepressant,Urine Not Detected (NotDetected); Urn Cannabinoid Scrn Detected (NotDetected)
[2019-11-27] MEDS ORDERED: NICOTINE 21MG/24HR PATCH TRANSDERM STA (17:01)
[2019-11-27] MEDS ORDERED: MAG HYDROX/AL HYDROX/SIMETH 30 ML CUP PO PRN (18:25)
[2019-11-27] MEDS ORDERED: MAGNESIUM HYDROXIDE 2,400 MG/10 ML CUP PO PRN (18:25)
[2019-11-27] MEDS ORDERED: ACETAMINOPHEN TAB 325 MG TAB PO PRN (18:25)
[2019-11-27] MEDS ORDERED: ZIPRASIDONE 20 MG VIAL IM PRN (18:25)
[2019-11-27] MEDS: ARIPiprazole 5 MG TAB PO SCH (20:48)
[2019-11-27] MEDS: LORazepam 1 MG TAB PO PRN (20:48)
[2019-11-28 07:08] LABS: Basophils # (A) 0.1 k/uL (0-0.2); Basophils % (A) 1 %; Eosinophils # (A) 0.3 k/uL (0-0.7); Eosinophils % (A) 4 %; HCT 52.5 % (39.0-53.0); HGB 17.1 gm/dL (13.0-17.5); Lymphocytes # (A) 2.3 k/uL (1.0-4.8); Lymphocytes % (A) 29 %; MCH 28.9 pg (25.0-35.0); MCHC 32.6 g/dL (31.0-37.0); MCV 88.4 fL (80.0-100.0); Mean Platelet Volume 7.7; Monocytes # (A) 0.5 k/uL (0-1.0); Monocytes % (A) 6 %; Neutrophils # (A) 4.6 k/uL (1.3-7.7); Neutrophils % (A) 57 %; Platelet Count 253 k/uL (150-450); RBC 5.94 m/uL (4.30-5.90); RDW 13.2 % (11.5-15.5)
[2019-11-28 07:31] LABS: ALT 15 U/L (4-49); AST 19 U/L (17-59); African American GFR (CKD) >90 (>60 ml/min/1.73 sqM); Albumin 4.8 g/dL (3.5-5.0); Alkaline Phosphatase 86 U/L (38-126); Anion Gap 9 mmol/L; Blood Urea Nitrogen 21 mg/dL (9-20); Calcium 9.5 mg/dL (8.4-10.2); Carbon Dioxide 27 mmol/L (22-30); Chloride 104 mmol/L (98-107); Cholesterol 119 mg/dL (<200); Glucose 94 mg/dL (74-99); HDL Cholesterol 37 mg/dL (40-60); LDL Cholesterol,Calculated 73 mg/dL (0-99); Non-African American GFR(CKD) >90 (>60 ml/min/1.73 sqM); Potassium 4.7 mmol/L (3.5-5.1); Sodium 140 mmol/L (137-145); Total Protein 7.4 g/dL (6.3-8.2); Triglycerides 43 mg/dL (<150)
[2019-11-28] MEDS: NICOTINE 14MG/24HR PATCH TRANSDERM SCH (09:45)
[2019-11-28] MEDS: LORazepam 1 MG TAB PO PRN ×2 (09:46→21:16)
--- NOTE | 2019-11-28 12:32 | HP ---
HISTORY AND PHYSICAL DATE OF SERVICE: 11/28/2019 IDENTIFYING DATA: The patient is 29-year-old male who presented to the emergency room with complaint of having auditory hallucination. HISTORY OF PRESENT ILLNESS: The patient stated that he has been seeing his psychiatrist in [place], Dr. Le, for the last couple of years and he was diagnosed with his attention deficit and he has been on Adderall 30 mg twice a day for the last couple of years, in addition to Klonopin 2 mg 3 times a day. The patient stated that the voices started a couple of months ago, but it has been getting worse lately and he called his outpatient psychiatrist who added Abilify 2 mg at bedtime and the patient was instructed to cut down the Adderall dose to just 15 mg twice a day with food. The patient stated that the voices do not tell him to hurt himself, but it does give him comments on his own thoughts to the point that he has been not able to concentrate at his work and he did have to leave. The patient stated also that he has been paranoid and he does feel that people are talking about him, but he denied any suicide or homicidal ideation. He denied any drug use except marijuana. Patient denied any manic or hypomanic features. He endorsed high anxiety as he did rates his anxiety 10 out of 10 with 10 being the worst and his depression 7 out of 10 with 10 being the worst. He stated that he has been having trouble sleeping at night and frustrated as he is not able to concentrate from the voices. He describes his anxiety as irritability, restless feeling, feeling on edge and racing thoughts. Also, he stated that he has been having a couple of panic attacks, especially at work, and that is why he left work. The patient had history of obsessive compulsive behavior as he stated that usually he needs to organize everything. The patient denied that there is any recent stress except according to him he is currently living with his parents and he does not feel they are supportive to him, as he said "they are supportive in their way, usually they can not trust me because of my addiction in the past." His urine drug screen was positive for amphetamines, benzodiazepine and marijuana. PAST PSYCHIATRIC HISTORY: This is his 3rd admission to this psychiatric unit. The two prior admissions were involuntary because of overdose on pain medication. . Past discharge diagnosis was anxiety, depression, substance abuse disorder. PAST PSYCHOTROPIC MEDICATION: The patient tried Prozac, Xanax, Ativan, and Klonopin. The patient stated that he never attempted suicide in the past; however, he did threaten to hurt himself, especially when he was high on pain medication. For the last 3 years, the patient has been seeing the same psychiatrist in [place], Dr. Bird Le. He used to have a counselor at [facility] for substance abuse, but currently he does not have any therapy. PSYCHIATRIC FAMILY HISTORY: His mother and sister suffer from depression and anxiety. MEDICAL HISTORY: There is no acute medical problem. However, the patient did start on Depo- Testosterone in July of 2019. There is history of chronic back pain, migraine, hypertension, and status post left wrist open reduction fixation. SUBSTANCE ABUSE HISTORY: 1. There is a history of opiate use disorder. The last time he used pain medication was 3 years ago. 2. He was a heavy drinker in college, but he denied any history of alcohol withdrawal and he had a DUI in 2015. Since then, he did not drink at all. 3. Marijuana. He has been smoking marijuana only on the weekends, not on a daily basis. 4. The patient was in rehab at least 5 times and it was mainly for opiate pain medication addiction. His last admission was early 2016. SOCIAL HISTORY: The patient has a bachelor's degree in sociology. He was once for 5 to 6 months and ended by divorce. He does not have any children. He has been working for the last year and currently he has been staying with his parents. He has 1 sister. He denied any current legal issue. MENTAL STATUS EXAMINATION: The patient is casually dressed, extensive tattooing on both arms. Cooperative, pleasant. His speech is not pressured, is spontaneous. His thought process is organized. His mood is described as "very nervous and anxious." His affect does show range. He denied any sort of harming himself or others. He stated that he has paranoia and his hearing voices, but it is not command voices to tell him to hurt himself. His cognitive functions appeared to be grossly intact. His insight is adequate as he does show evidence of insight to his mental illness, as he said that this is the 1st time he did admit himself. Judgment is fair. STRENGHT: supportive family,stable job and stable income WEAKNESS: Coping skills. DIAGNOSIS: 1. Depressive disorder, not otherwise specified. 2. Generalized anxiety disorder. 3. Psychosis not otherwise specified. Rule out drug-induced psychosis. 4. History of opiate use disorder. 5. History of alcohol use disorder. 6. Nicotine dependence. PLAN OF TREATMENT AND RECOMMENDATIONS: The patient will be admitted to the inpatient unit on a voluntary basis. He will be on 15 minute precautions. He will participate in group therapy and activity therapy. Will consult medical physician. I will start him on Trintellix for depression and anxiety. Abilify 15 mg at bedtime for his hallucinations and paranoia. I will restart him on Klonopin as he has been on Klonopin 6 mg a day for the last couple of years. However, I would restart him only on 0.25 twice a day and will monitor for any withdrawal symptoms from benzodiazepines. Cecilio and Atmarino p.r.n. for agitation. oncology social worker to schedule a family meeting and discharge plan. Estimated length of stay is 3-5 days. Prognosis fair. MMODL / IJN: [id number] / MTDD
--- NOTE | 2019-11-28 13:05 | P.CONS ---
History of Present Illness - Reason for Consult Medical clearance - History of Present Illness 29-year-old male is admitted secondary to artery hallucinations probably from schizophrenia and acute psychosis. Patient denied any fever chills nausea vomiting abdominal pain dysuria patient denied using any IV drugs patient occasionally uses marijuana denied any smoking cigarettes but does chew tobacco patient drug screen is positive for methamphetamines but patient is on prescription Adderall for ADD Review of Systems REVIEW OF SYSTEMS: CONSTITUTIONAL: No fever, no malaise, no fatigue. HEENT: No recent visual problems or hearing problems. Denied any sore throat. CARDIOVASCULAR: No chest pain, orthopnea, PND, no palpitations, no syncope. PULMONARY: No shortness of breath, no cough, no hemoptysis. GASTROINTESTINAL: No diarrhea, no nausea, no vomiting, no abdominal pain. NEUROLOGICAL: No headaches, no weakness, no numbness. HEMATOLOGICAL: Denies any bleeding or petechiae. GENITOURINARY: Denies any burning micturition, frequency, or urgency. MUSCULOSKELETAL/RHEUMATOLOGICAL: Denies any joint pain, swelling, or any muscle pain. ENDOCRINE: Denies any polyuria or polydipsia. The rest of the 14-point review of systems is negative. Past Medical History Past Medical History: Hypertension Additional Past Medical History / Comment(s): Severe anxiety, migraines, chronic back pain, difficulty with focusing attention. History of Any Multi-Drug Resistant Organisms: None Reported Past Surgical History: Orthopedic Surgery Additional Past Surgical History / Comment(s): Left wrist open reduction internal fixation, lipoma removed from right posterior shoulder. Past Anesthesia/Blood Transfusion Reactions: No Reported Reaction Past Psychological History: ADD/ADHD, Anxiety, Depression Additional Psychological History / Comment(s): OCD, ADD Smoking Status: Current every day smoker Past Alcohol Use History: None Reported Additional Past Alcohol Use History / Comment(s): Patient is a smoker of one pack per day for 4 years. He states he has not had alcohol since his DUI in May 2015. Hx of opiate 3 years ago. Patient reports chewing tobacco and vaping. 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 3-15 vicodin per day. Denies use since treatment.Rx for xanax that patient reports using 2 mg po bid. - Past Family History Father Family Medical History: Cancer, CVA/TIA, Myocardial Infarction ([place]) Additional Family Medical History / Comment(s): Father is alive at age 58. Patient states he has a rare cancer and undergoing chemotherapy. Mother Family Medical History: Coronary Artery Disease (CAD), Hypertension, Syncope Additional Family Medical History / Comment(s): Mother is alive at age 54 and also has history of anxiety and depression. Sister(s) History Unknown: Yes Family Medical History: No Reported History Medications and Allergies Home Medications Medication Instructions Recorded Confirmed Type Ergocalciferol [Vitamin D2] 50,000 unit PO GUERRERO 07/18/18 11/27/19 History Testosterone Cypionate 150 mg IM Q14D 05/27/19 11/27/19 History [Depo-Testosterone] clonazePAM [KlonoPIN] 2 mg PO TID 05/27/19 11/27/19 History ARIPiprazole [Abilify] 2.5 mg PO PC-LUNCH 11/27/19 11/27/19 History ARIPiprazole [Abilify] 5 mg PO BID 11/27/19 11/27/19 History Dextroamphetamine/Amphetamine 30 mg PO BID PRN 11/27/19 11/27/19 History [Adderall] Allergies Allergy/AdvReac Type Severity Reaction Status Date / Time No Known Allergies Allergy Verified 11/27/19 19:24 Physical Exam Vitals: Vital Signs Temp Pulse Pulse Resp BP BP Pulse Ox 11/28/19 06:30 98.2 F 78 16 126/61 99 11/27/19 17:46 98.3 F 86 16 117/80 98 11/27/19 17:28 97.3 F L 85 18 115/57 98 Intake and Output 11/27/19 11/28/19 11/28/19 22:59 06:59 14:59 Other: Weight 84.1 kg PHYSICAL EXAMINATION: GENERAL: The patient is alert and oriented x3, not in any acute distress. Well developed, well nourished. HEENT: Pupils are round and equally reacting to light. EOMI. No scleral icterus. No conjunctival pallor. Normocephalic, atraumatic. No pharyngeal erythema. No thyromegaly. CARDIOVASCULAR: S1 and S2 present. No murmurs, rubs, or gallops. PULMONARY: Chest is clear to auscultation, no wheezing or crackles. ABDOMEN: Soft, nontender, nondistended, normoactive bowel sounds. No palpable organomegaly. MUSCULOSKELETAL: No joint swelling or deformity. EXTREMITIES: No cyanosis, clubbing, or pedal edema. NEUROLOGICAL: Gross neurological examination did not reveal any focal deficits. SKIN: No rashes. Results CBC & Chem 7: 11/28/19 06:52 11/28/19 06:52 Labs: Abnormal Lab Results - Last 24 Hours (Table) 11/27/19 11/28/19 11/28/19 Range/Units 13:02 06:52 06:52 RBC 5.94 H (4.30-5.90) m/uL BUN 21 H (9-20) mg/dL HDL Cholesterol 37 L (40-60) mg/dL Ur Amphetamines Screen Detected H (NotDetected) U Benzodiazepines Scrn Detected H (NotDetected) U Marijuana (THC) Screen Detected H (NotDetected) Assessment and Plan Plan: -Acute psychosis: Management as per primary service patient probably has schizophrenia -Marijuana use: Counseling was provided -Patient is medically stable from medical perspective no further recommendations from medicine
[2019-11-28 19:26] LABS: Hemoglobin A1C 4.9 % (4.0-6.0)
[2019-11-28] MEDS: clonazePAM 0.5 MG TAB PO SCH (19:49)
[2019-11-28] MEDS: ARIPiprazole 5 MG TAB PO SCH (19:49)
[2019-11-29] MEDS: clonazePAM 0.5 MG TAB PO SCH ×2 (08:23→20:38)
[2019-11-29] MEDS: NICOTINE 14MG/24HR PATCH TRANSDERM SCH (08:23)
[2019-11-29] MEDS: VORTIOXETINE HYDROBROMIDE 10 MG TABLET PO SCH (08:24)
--- NOTE | 2019-11-29 12:39 | P.PN ---
Progress Note - Text Progress Note Date: 11/29/19 Interval history: Patient is seen in cross coverage today. He relays he was admitted with symptoms of hearing a bothersome voice. He states that the frequency and the loudness of the voice has improved. He has been increased on Abilify to 15 mg which he states does make him feel some tiredness which she is experienced with changes in Abilify dosage in the past but it is tolerable. He does describe some significant anxiety. His Klonopin dose has been reduced from approximately 4 mg a day down to 0.5 mg total per day at this time. He does feel like he is having some withdrawal symptoms. He also feels like he is experiencing some withdrawal from not being on Adderall. Mental status exam: He is alert and cooperative with the interview. Regarding mood he feels like it's more anxiety than it is depression. He is not verbalize any thoughts of harm to self or others. Regarding auditory hallucinations he reports that the voice that is hearing is less loud and less frequent. He does not display any agitation. His thought processes are organized. Plan: We will increase Klonopin at this time to 0.5 mg twice a day to see if this can help with withdrawal that he is experiencing plus help further with his level of anxiety. We'll maintain Abilify as current and monitor regarding side effects. We'll continue to monitor for symptoms of psychosis. We'll continue to provide him cross coverage through the weekend.
[2019-11-29] MEDS: LORazepam 1 MG TAB PO PRN (14:46)
[2019-11-29] MEDS: ARIPiprazole 5 MG TAB PO SCH (20:38)
[2019-11-30] MEDS ORDERED: ERGOCALCIFEROL 50,000 UNIT CAP PO SCH (09:00)
[2019-11-30] MEDS: clonazePAM 0.5 MG TAB PO SCH ×2 (09:12→20:46)
[2019-11-30] MEDS: NICOTINE 14MG/24HR PATCH TRANSDERM SCH (09:12)
[2019-11-30] MEDS: VORTIOXETINE HYDROBROMIDE 10 MG TABLET PO SCH (09:12)
[2019-11-30] MEDS: LORazepam 1 MG TAB PO PRN (12:52)
--- NOTE | 2019-11-30 18:12 | P.PN ---
Progress Note - Text Progress Note Date: 11/30/19 Interval history: Patient seen in [facility] today. He reports that he is feeling better today. Anxiety levels a little bit better. He also describes that the voices that he has been hearing is quieter and much less frequent. He does not seem to verbalize any current adverse psychotropic medication side effects. Mental status exam: He is alert and cooperative with the interview. His speech is fluent, not rapid or pressured. He describes his mood is pretty good. He does not verbalize any thoughts of harm to self or others. No evidence of active psychosis, he describes that the voices that he has been hearing is much less frequent and quieter. He does not make any nuris delusional statements. Plan: Patient be maintained on current psychotropic medication regimen. Continue to monitor for any medication side effects and monitor his ongoing response to treatment.
[2019-11-30] MEDS: ARIPiprazole 5 MG TAB PO SCH (20:46)
[2019-12-01] MEDS: VORTIOXETINE HYDROBROMIDE 10 MG TABLET PO SCH (09:26)
[2019-12-01] MEDS: NICOTINE 14MG/24HR PATCH TRANSDERM SCH (09:27)
[2019-12-01] MEDS: LORazepam 1 MG TAB PO PRN (09:32)
[2019-12-01] MEDS: clonazePAM 0.5 MG TAB PO SCH ×3 (09:53→21:07)
--- NOTE | 2019-12-01 12:00 | P.PN ---
Progress Note - Text Progress Note Date: 12/01/19 Clinical Problems: Psychosis NOS,rule out substance induced psychosis,rule out mood disorder most recent episode depressed with psychotic features, ,anxiety disorder l Interim history: Reviewed the medical record, interviewed the patient and discuss his treatment and treatment plan during team meeting. he is still endorsing auditory hallucinations but he said "it is less than before",he does feel that he is going through benzodiazepine withdrawals "I used to take 2 mg Klonopin for couple of years",he rates his anxiety 10/10 and depression 6/10,10 being the worst,he denies any sleep or appetite problems,denies any suicidal or homicidal ideation,he talked in detail ongoing stressors:fear of loosing his job ,staying with his parents as he is not able to affoed his own place ,lot of ruminations about past mistakes especially his past hx of NELLY Mental status exam: He presented as young male ,dressed in hospital gown,non spontaneous but coherent. He made eye contact and appeared to attend to the interview. His speech was fluent,normal in rate and rhythm. His affect was constricted. He denied suicidal ideation or wishes. He denied ideas reference, paranoid ideation or delusions. His thinking was concrete but his associations are coherent. He reports auditory hallucinations not command in nature,denies any visual hallucination,his insight and judgment are limited Plan: Continue hospitalization. Increase Klonopin 0.5 MG TID,continue Abilify for voices and Trintellix for depression and anxiety,encourage participation in milieu,monitor any benzodiazepine withdrawal Vitals were reviewed
[2019-12-01] MEDS: ARIPiprazole 5 MG TAB PO SCH (21:07)
[2019-12-02 06:36] VITALS: RESP 16
[2019-12-02] MEDS: VORTIOXETINE HYDROBROMIDE 10 MG TABLET PO SCH (08:58)
[2019-12-02] MEDS: NICOTINE 14MG/24HR PATCH TRANSDERM SCH (08:58)
[2019-12-02] MEDS: clonazePAM 0.5 MG TAB PO SCH ×3 (08:58→20:32)
[2019-12-02] MEDS: LORazepam 0.5 MG TAB PO PRN (11:02)
--- NOTE | 2019-12-02 11:40 | P.PN ---
Progress Note - Text Progress Note Date: 12/02/19 Interval History: Patient was seen wandering the hallways after taking his medications as morning and was directable and agreeable to speak with automotive service writer in the office. Patient claims that he is doing better today with regard to his anxiety and his mood. He appears to have a calm affect and also improvement in hygiene and grooming. He states that he is able to sleep well last night and has been going to groups. He claims that he believes that he was on too high of a medication for his ADHD at home and claims that that may have been the cause for his auditory hallucinations which she was experiencing. He states that since she's been started on the medications it has calmed down for him. He claims that he has not heard the voice in 24 hours and is happy with that. He states that he has a fair appetite. He also states that he spoke with his parents were [place] the weekend which went well. At this time patient denies any suicidal or homical ideations, intent or plan. Patient denies any auditory, visual hallucinations and denies any paranoia or delusions. Patient denies any side effects from the medications and has been compliant with meds. Mental Status Exam: General Appearance: Patient appears to be stated age is alert, directable, and cooperative. Behavior: Patient is calmly seated without any agitated behavior. More cooperative today. Speech: Patient's speech is fluent and nonpressured. Soft tone. Mood/Affect: Mood is improving mildly, affect is congruent and constricted. Suicidality/Homicidality: Patient denies having any suicidal or homicidal ideation intent or plan. Perceptions: Patient denies any visual hallucinations and denies any auditory hallucinations Though content/process: There is no evidence of any delusional thought content and thought process is linear and goal-directed. Memory and concentration: AOX3, grossly intact for the purposes of this session Judgment and insight: Improving mildly Assessment Psychosis unspecified, rule out secondary to substance use versus medication induced Generalized anxiety disorder History of opiate abuse History of alcoholic abuse Nicotine dependence Plan: -Patient continues to meet criteria for inpatient psychiatric admission for symptom stabilization and safety. Patient has signed adult voluntary form and medication consent and was placed in patient's chart. -Medications: Continue with Abilify 15 mg daily at bedtime for mood stabilization/psychosis, Trintellix 10 mg daily for mood, Klonopin 0.5 mg 3 times a day for anxiety. -When necessary Ativan and Geodon for agitation/aggression. -NRT - nicotine patch -SW on board for discharge planning. Encouraged the patient to participate in milieu. Likely discharge tomorrow back home.
[2019-12-02] MEDS: ARIPiprazole 5 MG TAB PO SCH (20:32)
[2019-12-03 06:43] VITALS: BP 112/63; PULSE 73; TEMP 98.7
[2019-12-03] MEDS: NICOTINE 14MG/24HR PATCH TRANSDERM SCH (08:31)
[2019-12-03] MEDS: clonazePAM 0.5 MG TAB PO SCH (08:31)
[2019-12-03] MEDS: VORTIOXETINE HYDROBROMIDE 10 MG TABLET PO SCH (08:31)
--- NOTE | 2019-12-03 09:54 | P.DS ---
Providers Date of admission: 11/27/19 17:24 Expected date of discharge: 12/03/19 Attending physician: Alejo Birmingham MD Consults: 11/27/19 18:25 Consult Physician Routine Consulting Provider: Can Maxwell Consult Reason/Comments: H & P and medical care Do you want consulting provider notified?: Yes Primary care physician: Becky Cristobal - Discharge Diagnosis(es) (1) Unspecified psychosis Current Visit: Yes Status: Acute Priority: High (2) Generalized anxiety disorder Current Visit: Yes Status: Acute Priority: Low (3) History of opioid abuse Current Visit: Yes Status: Acute Priority: Low (4) History of alcohol abuse Current Visit: Yes Status: Acute Priority: Low (5) Nicotine dependence Current Visit: Yes Status: Acute Priority: Low Hospital Course: Admission HPI: Admission note was completed by Dr. Charles "patient is a 29-year-old male who presented to the emergency room with complaints of having auditory hallucinations. The patient stated that he has been seeing his psychiatrist in [place] Dr. Le for the last couple years and he was diagnosed with his attention deficit disorder and he has been on Adderall 30 mg twice a day for the last couple of years in addition to Klonopin 2 mg 3 times a day. Patient stated that the voices started a couple of months ago but it has been getting worse lately and he called his outpatient psychiatrist were added Abilify 2 mg at bedtime and the patient was instructed to cut down the Adderall dose to just 15 mg twice a day with food. The patient stated that the voices do not tell him to hurt himself but it goes give him comments on his own thoughts to the point that he has been not able to concentrate at his work and he did have to leave. Patient stated also that he has been paranoid and he does feel that people are talking about him but he denied any suicidal or homicidal ideations. He denied any drug use except marijuana. The patient denied any manic or hypomanic features. He endorsed high anxiety as he did rate his anxiety a 10 out of 10 with 10 being the worst and his depression 7 out of 10 with 10 being the worst. He stated that he has been having trouble sleeping and I'm frustrated he is not able to concentrate from the voices. He describes his anxiety as irritability restless feeling feeling on edge and racing thoughts. Also he stated that he has been having a couple of panic attacks especially at work and that is why he left work. The patient had history of obsessive- compulsive behavior as he stated that usually he needs to organize everything. The patient denied that there is any recent stress except according to him he is currently living his parents and he does not feel they are supportive of him as he said "they are supportive in their way usually they cannot trust me because of my addiction in the past". His urine drug screen was positive for amp hetamines benzodiazepines and marijuana. Hospital course: Upon admission to the unit patient was initially distressed secondary to his auditory hallucinations. Patient was however directable and agreeable to commence treatment. Patient got along well with other patients on the unit and followed unit protocol. Patient was compliant with the medications and denied any side effects throughout hospital course. Patient was started on Abilify which was titrated up to a dose of 15 mg daily at bedtime for mood stabilization/psychosis, also patient's Klonopin was titrated down to 0.5 mg 3 times a day for anxiety and also started on Trintellix 10 mg daily for mood. Patient's Adderall was discontinued as this may have been a contributing factor to patient's psychotic features. Patient spoke of his stressors and engaged in therapy both group and individual. Patient was also seen by medical team for history and physical exam. Throughout the course of the hospitalization patient gradually improved with regards to mood, anxiety, auditory hallucinations/psychosis, sleep and became future oriented with improved insight and judgment. On the day of discharge patient denied any suicidal or homicidal ideations intent or plan denied any auditory or visual hallucinations. Patient endorsed wanting to live for his health and family. The patient denied any access to guns or weapons. Patient denied any paranoia and did not endorse any delusions. Patient does have a significant history of substance abuse and was counseled on abstaining from all substances including alcohol and marijuana. Pat osman wanted to cut back on his own. Patient was also counseled on the medications and need for regular compliance and was encouraged to follow-up with their outpatient appointment for mental health and also for primary care. Prior to discharge a family meeting will be arranged by social professionals to answer any questions and ensure safety upon discharge. Mental status exam: General Appearance: Patient appears to be stated age is alert, pleasant, and cooperative. Patient is in no acute distress and has fair hygiene and grooming Behavior: Patient is calmly seated without any agitated behavior. cooperative. Speech: Patient's speech is fluent and nonpressured. Mood/Affect: Patient reports their mood is "good", affect is congruent and euthymic. Suicidality/Homicidality: Patient denies having any suicidal or homicidal ideation intent or plan. Perceptions: Patient denies any auditory or visual hallucinations. Though content/process: There is no evidence of any delusional thought content and thought process is linear and goal-directed. Memory and concentration: AOX3, grossly intact for the purposes of this session. Can spell "WORLD" backwards correctly. 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 -Continue medications: Abilify by mouth 15 mg nightly for psychosis/mood stabilization, Trintellix 10 mg daily for mood, Klonopin 0.5 mg 3 times a day for anxiety. Patient was advised to not resume any stimulant medications for hi s ADHD as this was most likely the cause for patient's psychotic features. -Patient was counseled on the need for medication compliance and appropriate follow-up at mental health and also primary care for medical issues. Patient verbalized understanding and agreed. -Social work to arrange for and conduct family meeting to ensure safety upon discharge and answer any questions/concerns. Social work also to arrange for patients follow up appointments with patient's psychiatrist for psychiatric care along with follow up with primary care provider. -Patient counseled on abstaining from recreational drugs and marijuana and alcohol. Was informed/educated on the adverse effects on their physical and mental health. Patient verbally agreed and understood. -Patient was instructed to return to the hospital or seek immediate medical care if their psychiatric or medical symptoms do worsen or reoccur. Allergies Allergy/AdvReac Type Severity Reaction Status Date / Time No Known Allergies Allergy Verified 11/27/19 19:24 Laboratory Results WBC 8.0 k/uL (3.8-10.6) 11/28/19 06:52 RBC 5.94 m/uL (4.30-5.90) H 11/28/19 06:52 Hgb 17.1 gm/dL (13.0-17.5) 11/28/19 06:52 Hct 52.5 % (39.0-53.0) 11/28/19 06:52 MCV 88.4 fL (80.0-100.0) 11/28/19 06:52 MCH 28.9 pg (25.0-35.0) 11/28/19 06:52 MCHC 32.6 g/dL (31.0-37.0) 11/28/19 06:52 RDW 13.2 % (11.5-15.5) 11/28/19 06:52 Plt Count 253 k/uL (150-450) 11/28/19 06:52 Neutrophils % 57 % 11/28/19 06:52 Lymphocytes % 29 % 11/28/19 06:52 Monocytes % 6 % 11/28/19 06:52 Eosinophils % 4 % 11/28/19 06:52 Basophils % 1 % 11/28/19 06:52 Neutrophils # 4.6 k/uL (1.3-7.7) 11/28/19 06:52 Lymphocytes # 2.3 k/uL (1.0-4.8) 11/28/19 06:52 Monocytes # 0.5 k/uL (0-1.0) 11/28/19 06:52 Eosinophils # 0.3 k/uL (0-0.7) 11/28/19 06:52 Basophils # 0.1 k/uL (0-0.2) 11/28/19 06:52 Sodium 140 mmol/L (137-145) 11/28/19 06:52 Potassium 4.7 mmol/L (3.5-5.1) 11/28/19 06:52 Chloride 104 mmol/L (98-107) 11/28/19 06:52 Carbon Dioxide 27 mmol/L (22-30) 11/28/19 06:52 Anion Gap 9 mmol/L 11/28/19 06:52 BUN 21 mg/dL (9-20) H 11/28/19 06:52 Creatinine 1.07 mg/dL (0.66-1.25) 11/28/19 06:52 Est GFR (CKD-EPI)AfAm >90 (>60 ml/min/1.73 sqM) 11/28/19 06:52 Est GFR (CKD-EPI)NonAf >90 (>60 ml/min/1.73 sqM) 11/28/19 06:52 Glucose 94 mg/dL (74-99) 11/28/19 06:[address] Glu mg/dL 94 11/28/19 06:52 Hemoglobin A1c 4.9 % (4.0-6.0) 11/28/19 06:52 Calcium 9.5 mg/dL (8.4-10.2) 11/28/19 06:52 Total Bilirubin 1.0 mg/dL (0.2-1.3) 11/28/19 06:52 AST 19 U/L (17-59) 11/28/19 06:52 ALT 15 U/L (4-49) 11/28/19 06:52 Alkaline Phosphatase 86 U/L (38-126) 11/28/19 06:52 Total Protein 7.4 g/dL (6.3-8.2) 11/28/19 06:52 Albumin 4.8 g/dL (3.5-5.0) 11/28/19 06:52 Triglycerides 43 mg/dL (<150) 11/28/19 06:52 Cholesterol 119 mg/dL (<200) 11/28/19 06:52 LDL Cholesterol, Calc 73 mg/dL (0-99) 11/28/19 06:52 HDL Cholesterol 37 mg/dL (40-60) L 11/28/19 06:52 TSH 0.662 mIU/L (0.465-4.680) 11/28/19 06:52 Urine Opiates Screen Not Detected (NotDetected) 11/27/19 13:02 Ur Oxycodone Screen Not Detected (NotDetected) 11/27/19 13:02 Urine Methadone Screen Not Detected (NotDetected) 11/27/19 13:02 Ur Propoxyphene Screen Not Detected (NotDetected) 11/27/19 13:02 Ur Barbiturates Screen Not Detected (NotDetected) 11/27/19 13:02 U Tricyclic Antidepress Not Detected (NotDetected) 11/27/19 13:02 Ur Phencyclidine Scrn Not Detected (NotDetected) 11/27/19 13:02 Ur Amphetamines Screen Detected (NotDetected) H 11/27/19 13:02 U Methamphetamines Scrn Not Detected (NotDetected) 11/27/19 13:02 U Benzodiazepines Scrn Detected (NotDetected) H 11/27/19 13:02 Urine Cocaine Screen Not Detected (NotDetected) 11/27/19 13:02 U Marijuana (THC) Screen Detected (NotDetected) H 11/27/19 13:02 Vital Signs Temp 98.7 F 12/03/19 06:42 Pulse 73 12/03/19 06:42 Resp 16 12/03/19 06:42 BP 112/63 12/03/19 06:42 Pulse Ox 100 12/03/19 06:42 Patient Condition at Discharge: Stable Plan - Discharge Summary Discharge Rx Participant: No New Discharge Prescriptions: New ARIPiprazole [Abilify] 15 mg PO HS 30 Days tablet Nicotine 14Mg/24Hr Patch [Habitrol] 1 patch TRANSDERM DAILY 14 Days patch clonazePAM [KlonoPIN] 0.5 mg PO TID 14 Days #42 tab Vortioxetine Hydrobromide [Trintellix] 10 mg PO DAILY 30 Days tablet Acetaminophen Tab [Tylenol] 650 mg PO Q4HR PRN tab PRN Reason: Pain/Discomfort Continue Ergocalciferol [Vitamin D2 (DRISDOL)] 50,000 unit PO GUERRERO Discontinued clonazePAM [KlonoPIN] 2 mg PO TID Testosterone Cypionate [Depo-Testosterone] 150 mg IM Q14D Dextroamphetamine/Amphetamine [Adderall] 30 mg PO BID PRN PRN Reason: Drowsiness ARIPiprazole [Abilify] 2.5 mg PO PC-LUNCH ARIPiprazole [Abilify] 5 mg PO BID Discharge Medication List Ergocalciferol [Vitamin D2 (DRISDOL)] 50,000 unit PO GUERRERO 07/18/18 [History] ARIPiprazole [Abilify] 15 mg PO HS 30 Days tablet 12/03/19 [Rx] Acetaminophen Tab [Tylenol] 650 mg PO Q4HR PRN tab 12/03/19 [Rx] Nicotine 14Mg/24Hr Patch [Habitrol] 1 patch TRANSDERM DAILY 14 Days patch 12/03/19 [Rx] Vortioxetine Hydrobromide [Trintellix] 10 mg PO DAILY 30 Days tablet 12/03/19 [Rx] clonazePAM [KlonoPIN] 0.5 mg PO TID 14 Days #42 tab 12/03/19 [Rx] Follow up Appointment(s)/Referral(s): Becky Cristobal MD [Primary Care Provider] - 1-2 days Patient Instructions/Handouts: Depression (DC), Brief Psychotic Disorder (DC), Help Prevent Suicide (DC) Activity/Diet/Wound Care/Special Instructions: Activity and diet as tolerated. Avoid the use of street drugs and alcohol. Take all medications as prescribed. When you are in need of refills on your medications please contact your medical provider and/or outpatient psychiatrist to have this done. Please go to scheduled outpatient appointment for aftercare treatment. If symptoms return or become worse, call the crisis line at and/or go to the nearest emergency room for evaluation Discharge Disposition: HOME SELF-CARE
[2019-12-03] MEDS: LORazepam 0.5 MG TAB PO PRN (10:36)
== END 2019-12-03 12:55 | disposition home or self-care (01) | DRG 897 ==
LOC: EC 11:46 → 3MHU 17:24
PROVIDERS: ADMIT Psychiatry & Neurology Psychiatry; ATTEND Psychiatry & Neurology Psychiatry
DX: F15.951 Other stimulant use, unspecified with stimulant-induced psychotic disorder with hallucinations (principal); F17.210 Nicotine dependence, cigarettes, uncomplicated; F32.9 Major depressive disorder, single episode, unspecified; F41.0 Panic disorder [episodic paroxysmal anxiety]; F41.1 Generalized anxiety disorder; F90.9 Attention-deficit hyperactivity disorder, unspecified type; I10 Essential (primary) hypertension; F98.8 Other specified behavioral and emotional disorders with onset usually occurring in childhood and adolescence; G43.909 Migraine, unspecified, not intractable, without status migrainosus; G89.29 Other chronic pain; M54.9 Dorsalgia, unspecified; F17.220 Nicotine dependence, chewing tobacco, uncomplicated; Z79.811 Long term (current) use of aromatase inhibitors; Z79.899 Other long term (current) drug therapy; Z82.49 Family history of ischemic heart disease and other diseases of the circulatory system; Z80.9 Family history of malignant neoplasm, unspecified; Z82.3 Family history of stroke; Z81.8 Family history of other mental and behavioral disorders
CPT/HCPCS: 80053; 80061; 80306; 83036; 84443; 85025; 99285

== ENCOUNTER → 2020-07-02 | Outpatient (CLI) | payer OTHER ==
--- NOTE | 2020-07-02 14:27 | MR ---
EXAMINATION TYPE: MR brain wo/w con DATE OF EXAM: 07/02/2020 COMPARISON: MRI brain July 02, 2020. CT brain March 06, 2018 HISTORY: Auditory hallucinations TECHNIQUE: Multiplanar, multisequence images of the brain and brainstem is performed without and with IV contras t, utilizing 8.5 mL intravenous Gadavist . FINDINGS: Diffusion weighted images demonstrate no evidence of a recent infarct or other diffusion ab normality. There is no extra-axial fluid collection or significant white matter signal abnormality. The ventricular system and cisternal spaces are normal in size and appearance. The brain volume is age appropriate. Midline structures demonstrate normal morphology. The craniocervical junction appears within normal limits. Post contrast images demonstrate no abnormal enhancement. The dural venous sinuses appear pa tent. Mild to moderate mucosal thickening involving the maxillary and ethmoid sinuses sinuses bilater ally remains present. Globes are intact bilaterally. No suspicious fluid signal mastoid air cells. IMPRESSION: Chronic paranasal sinus disease redemonstrated. No new or acute findings present
== END | disposition home or self-care (01) ==
LOC: RADMRIMAIN 07:38
PROVIDERS: ATTEND Nurse Practitioner Family
DX: J34.89 Other specified disorders of nose and nasal sinuses (principal)
CPT/HCPCS: 70553; A9585

== ENCOUNTER 2021-01-01 12:57 | Emergency (ER) | payer OTHER ==
[2021-01-01 13:36] LABS: Cocaine Screen,Urine Not Detected (NotDetected); Phencyclidine Screen,Urine Not Detected (NotDetected); Urn Cannabinoid Scrn Not Detected (NotDetected)
[2021-01-01 13:37] LABS: Amphetamine Screen,Urine Detected (NotDetected); Barbiturate Screen,Urine Not Detected (NotDetected); Benzodiazepines Screen,Urine Detected (NotDetected); Methadone Screen, Urine Not Detected (NotDetected); Opiate Screen,Urine Not Detected (NotDetected); Oxycodone Screen, Urine Not Detected (NotDetected); Tricyclic Antidepressant,Urine Not Detected (NotDetected)
--- NOTE | 2021-01-01 13:39 | ED ---
General Adult HPI - General Chief complaint: Psychiatric Symptoms Stated complaint: Petition Time Seen by Provider: 01/01/21 13:07 Source: patient, RN notes reviewed, old records reviewed Mode of arrival: ambulatory Limitations: no limitations - History of Present Illness Initial comments: 30-year-old male presents for psychiatric evaluation. Patient has been petitioned by his parents for behavior and hallucination. Patient has been cooperative with local police. He was brought in for mental health evaluation. He denies suicidal or homicidal ideation. He states he has been depressed and anxious. The petitioned does indicate that he's had similar behavior including hallucination and he has been watching his parents sleep. - Related Data Home Medications Medication Instructions Recorded Confirmed Ergocalciferol [Vitamin D2 50,000 unit PO GUERRERO 07/18/18 11/27/19 (DRISDOL)] Previous Rx's Medication Instructions Recorded ARIPiprazole [Abilify] 15 mg PO HS 30 Days tablet 12/03/19 Acetaminophen Tab [Tylenol] 650 mg PO Q4HR PRN tab 12/03/19 Nicotine 14Mg/24Hr Patch [Habitrol] 1 patch TRANSDERM DAILY 14 Days 12/03/19 patch Vortioxetine Hydrobromide 10 mg PO DAILY 30 Days tablet 12/03/19 [Trintellix] clonazePAM [KlonoPIN] 0.5 mg PO TID 14 Days #42 tab 12/03/19 Allergies Allergy/AdvReac Type Severity Reaction Status Date / Time No Known Allergies Allergy Verified 01/01/21 13:04 Review of Systems ROS Statement: Those systems with pertinent positive or pertinent negative responses have been documented in the HPI. ROS Other: All systems not noted in ROS Statement are negative. Past Medical History Past Medical History: Hypertension Additional Past Medical History / Comment(s): Severe anxiety, migraines, chronic back pain, difficulty with focusing attention. History of Any Multi-Drug Resistant Organisms: None Reported Past Surgical History: Orthopedic Surgery Additional Past Surgical History / Comment(s): Left wrist open reduction internal fixation, lipoma removed from right posterior shoulder. Past Anesthesia/Blood Transfusion Reactions: No Reported Reaction Past Psychological History: ADD/ADHD, Anxiety, Depression Smoking Status: Current every day smoker, Vaper Past Alcohol Use History: Occasional Past Drug Use History: Marijuana - Past Family History Father Family Medical History: Cancer, CVA/TIA, Myocardial Infarction ([place]) Additional Family Medical History / Comment(s): Father is alive at age 58. Patient states he has a rare cancer and undergoing chemotherapy. Mother Family Medical History: Coronary Artery Disease (CAD), Hypertension, Syncope Additional Family Medical History / Comment(s): Mother is alive at age 54 and also has history of anxiety and depression. Sister(s) History Unknown: Yes Family Medical History: No Reported History General Exam Limitations: no limitations General appearance: alert, anxious Head exam: Present: atraumatic, normocephalic Eye exam: Present: normal appearance, PERRL ENT exam: Present: normal exam Neck exam: Present: normal inspection. Absent: tenderness, meningismus Respiratory exam: Present: normal lung sounds bilaterally. Absent: respiratory distress Cardiovascular Exam: Present: regular rate, normal rhythm GI/Abdominal exam: Present: soft. Absent: distended, tenderness, guarding Extremities exam: Present: normal inspection, normal capillary refill. Absent: pedal edema Neurological exam: Present: alert, oriented X3 Psychiatric exam: Present: anxious, flat affect. Absent: homicidal ideation, suicidal ideation Skin exam: Present: warm, dry, intact. Absent: cyanosis, diaphoretic Course Vital Signs 01/01/21 13:01 Temperature 98.1 F Pulse Rate 104 H Respiratory 18 Rate Blood Pressure 131/85 O2 Sat by Pulse 96 Oximetry Medical Decision Making - Medical Decision Making 30-year-old male presented for mental health evaluation under petition. Patient called cooperative, not suicidal or homicidal. He had been evaluated by EPS and felt to be safe for discharge at this time. This is felt to be related to insomnia secondary to amphetamine use. Patient was able to get some rest in the emergency department. He has good outpatient follow-up. - Lab Data Lab Results 01/01/21 Range/Units 13:13 Urine Opiates Screen Not Detected (NotDetected) Ur Oxycodone Screen Not Detected (NotDetected) Urine Methadone Screen Not Detected (NotDetected) Ur Propoxyphene Screen Not Detected (NotDetected) Ur Barbiturates Screen Not Detected (NotDetected) U Tricyclic Antidepress Not Detected (NotDetected) Ur Phencyclidine Scrn Not Detected (NotDetected) Ur Amphetamines Screen Detected H (NotDetected) U Methamphetamines Scrn Not Detected (NotDetected) U Benzodiazepines Scrn Detected H (NotDetected) Urine Cocaine Screen Not Detected (NotDetected) U Marijuana (THC) Screen Not Detected (NotDetected) Disposition Clinical Impression: Depression Disposition: HOME SELF-CARE Condition: Fair Instructions (If sedation given, give patient instructions): Depression (ED) Additional Instructions: Please follow up with community mental health. Is patient prescribed a controlled substance at d/c from ED?: No Referrals: Becky Cristobal MD [Primary Care Provider] - 1-2 days Time of Disposition: 15:35
[2021-01-01 15:59] VITALS: BP 128/78; PULSE 78; RESP 16; TEMP 98.2
== END 2021-01-01 15:58 | disposition home or self-care (01) ==
LOC: EC 12:57
DX: F32.9 Major depressive disorder, single episode, unspecified (principal); R44.3 Hallucinations, unspecified; I10 Essential (primary) hypertension; F41.9 Anxiety disorder, unspecified; F90.9 Attention-deficit hyperactivity disorder, unspecified type; F12.90 Cannabis use, unspecified, uncomplicated; F17.290 Nicotine dependence, other tobacco product, uncomplicated
CPT/HCPCS: 80306; 82075; 99285

== ENCOUNTER 2021-01-07 12:44 | Inpatient (IN) | payer MEDICAID, OTHER ==
--- NOTE | 2021-01-07 14:27 | ED ---
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 Patient was petitioned by father for evaluation for psychiatric issues. Patient has long history of psychiatric issues she he is currently denying any current symptoms denies being suicidal or homicidal states that he is taking medication and believes he is made his appointments. (Misael Agosto) - Related Data Home Medications Medication Instructions Recorded Confirmed Ergocalciferol [Vitamin D2 50,000 unit PO GUERRERO 07/18/18 11/27/19 (DRISDOL)] Previous Rx's Medication Instructions Recorded ARIPiprazole [Abilify] 15 mg PO HS 30 Days tablet 12/03/19 Acetaminophen Tab [Tylenol] 650 mg PO Q4HR PRN tab 12/03/19 Nicotine 14Mg/24Hr Patch [Habitrol] 1 patch TRANSDERM DAILY 14 Days 12/03/19 patch Vortioxetine Hydrobromide 10 mg PO DAILY 30 Days tablet 12/03/19 [Trintellix] clonazePAM [KlonoPIN] 0.5 mg PO TID 14 Days #42 tab 12/03/19 Allergies Allergy/AdvReac Type Severity Reaction Status Date / Time No Known Allergies Allergy Verified 01/01/21 13:04 Review of Systems ROS Other: All systems not noted in ROS Statement are negative. <Misael Agosto - Last Filed: 01/07/21 14:21> ROS Other: All systems not noted in ROS Statement are negative. <Bird Benton - Last Filed: 01/07/21 19:13> ROS Statement: Those systems with pertinent positive or pertinent negative responses have been documented in the HPI. Past Medical History Past Medical History: Hypertension Additional Past Medical History / Comment(s): Severe anxiety, migraines, chronic back pain, difficulty with focusing attention. History of Any Multi-Drug Resistant Organisms: None Reported Past Surgical History: Orthopedic Surgery Additional Past Surgical History / Comment(s): Left wrist open reduction internal fixation, lipoma removed from right posterior shoulder. Past Anesthesia/Blood Transfusion Reactions: No Reported Reaction Past Psychological History: ADD/ADHD, Anxiety, Depression Smoking Status: Current every day smoker, Vaper Past Alcohol Use History: Occasional Past Drug Use History: Marijuana - Past Family History Father Family Medical History: Cancer, CVA/TIA, Myocardial Infarction ([place]) Additional Family Medical History / Comment(s): Father is alive at age 58. Patient states he has a rare cancer and undergoing chemotherapy. Mother Family Medical History: Coronary Artery Disease (CAD), Hypertension, Syncope Additional Family Medical History / Comment(s): Mother is alive at age 54 and also has history of anxiety and depression. Sister(s) History Unknown: Yes Family Medical History: No Reported History <Misael Agosto - Last Filed: 01/07/21 14:21> General Exam Limitations: no limitations General appearance: alert, in no apparent distress Head exam: Present: atraumatic, normocephalic, normal inspection Eye exam: Present: normal appearance, PERRL, EOMI. Absent: scleral icterus, conjunctival injection, periorbital swelling ENT exam: Present: normal exam, mucous membranes moist Neck exam: Present: normal inspection, full ROM. Absent: tenderness, meningismus, lymphadenopathy Respiratory exam: Present: normal lung sounds bilaterally. Absent: respiratory distress, wheezes, rales, rhonchi, stridor Cardiovascular Exam: Present: regular rate, normal rhythm, normal heart sounds. Absent: systolic murmur, diastolic murmur, rubs, gallop, clicks Neurological exam: Present: alert, oriented X3 Skin exam: Present: warm, dry, intact, normal color. Absent: rash <Misael Agosto - Last Filed: 01/07/21 14:21> Course Vital Signs 01/07/21 01/07/21 13:04 18:00 Temperature 98.5 F 98.1 F Pulse Rate 115 H 99 Respiratory 18 16 Rate Blood Pressure 117/82 126/79 O2 Sat by Pulse 97 97 Oximetry Medical Decision Making <Bird Benton - Last Filed: 01/07/21 19:13> - Medical Decision Making Patient was evaluated by the EPS service a petition was filled out and did fill out a clinical certification. Patient's been delusional and having paranoid thoughts. Patient will be admitted (Bird Benton) - Lab Data Lab Results 01/07/21 01/07/21 Range/Units 13:52 15:16 Urine Opiates Screen Not Detected (NotDetected) Ur Oxycodone Screen Not Detected (NotDetected) Urine Methadone Screen Not Detected (NotDetected) Ur Propoxyphene Screen Not Detected (NotDetected) Ur Barbiturates Screen Not Detected (NotDetected) U Tricyclic Antidepress Not Detected (NotDetected) Ur Phencyclidine Scrn Not Detected (NotDetected) Ur Amphetamines Screen Detected H (NotDetected) U Methamphetamines Scrn Not Detected (NotDetected) U Benzodiazepines Scrn Detected H (NotDetected) Urine Cocaine Screen Not Detected (NotDetected) U Marijuana (THC) Screen Not Detected (NotDetected) Coronavirus (PCR) Not Detected (Not Detectd) Disposition <Misael Agosto - Last Filed: 01/07/21 14:21> <Bird Benton - Last Filed: 01/07/21 19:13> Clinical Impression: Acute psychosis Disposition: TRANSFER TO PSYCH HOSP/UNIT Condition: Fair Referrals: Becky Cristobal MD [Primary Care Provider] - 1-2 days
[2021-01-07 15:00] LABS: Amphetamine Screen,Urine Detected (NotDetected); Barbiturate Screen,Urine Not Detected (NotDetected); Benzodiazepines Screen,Urine Detected (NotDetected); Cocaine Screen,Urine Not Detected (NotDetected); Methadone Screen, Urine Not Detected (NotDetected); Opiate Screen,Urine Not Detected (NotDetected); Oxycodone Screen, Urine Not Detected (NotDetected); Phencyclidine Screen,Urine Not Detected (NotDetected); Tricyclic Antidepressant,Urine Not Detected (NotDetected); Urn Cannabinoid Scrn Not Detected (NotDetected)
[2021-01-07] MEDS ORDERED: LORazepam 2 MG/ML INJ IM STA (15:23)
[2021-01-07] MEDS ORDERED: HALOPERIDOL LACTATE 5 MG/ML 1 ML VIAL IM STA (15:23)
[2021-01-07] MEDS ORDERED: MAG HYDROX/AL HYDROX/SIMETH 30 ML CUP PO PRN (20:32)
[2021-01-07] MEDS ORDERED: ACETAMINOPHEN TAB 325 MG TAB PO PRN (20:32)
[2021-01-07] MEDS ORDERED: MAGNESIUM HYDROXIDE 2,400 MG/10 ML CUP PO PRN (20:32)
[2021-01-07] MEDS ORDERED: HALOPERIDOL LACTATE 5 MG/ML 1 ML VIAL IM PRN (20:35)
[2021-01-07] MEDS ORDERED: LORazepam 2 MG/ML INJ IM PRN (20:35)
[2021-01-07] MEDS ORDERED: haloperidoL 5 MG TAB PO PRN (20:36)
[2021-01-07] MEDS: ARIPiprazole 15 MG TAB PO SCH (21:47)
[2021-01-08 07:05] LABS: Basophils # (A) 0.1 k/uL (0-0.2); Basophils % (A) 1 %; Eosinophils # (A) 0.2 k/uL (0-0.7); Eosinophils % (A) 3 %; HCT 52.7 % (39.0-53.0); HGB 17.5 gm/dL (13.0-17.5); Lymphocytes # (A) 2.3 k/uL (1.0-4.8); Lymphocytes % (A) 25 %; MCH 30.9 pg (25.0-35.0); MCHC 33.3 g/dL (31.0-37.0); MCV 92.9 fL (80.0-100.0); Mean Platelet Volume 8.1; Monocytes # (A) 0.5 k/uL (0-1.0); Monocytes % (A) 5 %; Neutrophils # (A) 6.1 k/uL (1.3-7.7); Neutrophils % (A) 65 %; Platelet Count 265 k/uL (150-450); RBC 5.67 m/uL (4.30-5.90); RDW 13.8 % (11.5-15.5); WBC 9.4 k/uL (3.8-10.6)
[2021-01-08 07:32] LABS: ALT 14 U/L (4-49); AST 28 U/L (17-59); African American GFR (CKD) >90 (>60 ml/min/1.73 sqM); Albumin 4.7 g/dL (3.5-5.0); Alkaline Phosphatase 69 U/L (38-126); Anion Gap 10 mmol/L; Blood Urea Nitrogen 22 mg/dL (9-20); Calcium 10.1 mg/dL (8.4-10.2); Carbon Dioxide 28 mmol/L (22-30); Chloride 102 mmol/L (98-107); Glucose 93 mg/dL (74-99); Non-African American GFR(CKD) 83 (>60 ml/min/1.73 sqM); Potassium 4.7 mmol/L (3.5-5.1); Sodium 140 mmol/L (137-145); Total Bilirubin 0.9 mg/dL (0.2-1.3); Total Protein 7.5 g/dL (6.3-8.2)
[2021-01-08] MEDS ORDERED: NICOTINE 14MG/24HR PATCH TRANSDERM SCH (09:00)
[2021-01-08] MEDS: OLANZapine 5 MG TAB PO SCH ×3 (11:01→21:42)
[2021-01-08] MEDS: NICOTINE 21MG/24HR PATCH TRANSDERM SCH (11:01)
[2021-01-08] MEDS: LORazepam 0.5 MG TAB PO SCH ×2 (12:33→18:04)
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
[2021-01-08 15:29] LABS: Chol/HDL Ratio 3.83; Cholesterol 111 mg/dL (0-200); LDL Cholesterol,Calculated 65.2 mg/dL (0.0-131.0)
[2021-01-08 16:39] LABS: Hemoglobin A1C 4.7 % (4.0-6.0)
[2021-01-08] MEDS ORDERED: METOPROLOL TARTRATE 25 MG TAB PO STA (19:03)
[2021-01-08] MEDS: ARIPiprazole 15 MG TAB PO SCH (22:16)
[2021-01-09] MEDS: LORazepam 0.5 MG TAB PO SCH ×4 (01:35→17:32)
[2021-01-09] MEDS: NICOTINE 21MG/24HR PATCH TRANSDERM SCH (08:05)
[2021-01-09] MEDS: OLANZapine 5 MG TAB PO SCH ×2 (08:05→20:52)
[2021-01-09] MEDS ORDERED: ERGOCALCIFEROL 1,250 MCG (50,000 IU) CAPSULE PO SCH (09:00)
--- NOTE | 2021-01-09 10:38 | P.CONS ---
History of Present Illness - History of Present Illness This is a pleasant 30 years old male who was admitted to the mental health unit because he is petitioned by his father for psychiatric symptoms, patient is delusional with paranoid thoughts. There is documentation of history of hypertension however his blood pressure on admission was controlled without any medication. He was tachycardic going up to 145, currently is still tachycardic at 113 while his resting in bed. Rest of vitals is stable, his blood pressure this morning is 140s/76, he got 1 dose of metoprolol yesterday. When he went to see the patient he was lying in bed comfortable not in distress he denies any symptoms for me but when asked specifically if he has chest pain he said he has for the last 2 days he is having central and left upper chest pain, both 4/10, nonradiating and nonspecific. No dyspnea or coughing. Also patient noted to be smoker about 1 pack per day and he was counseled to quit and he agrees to the nicotine patch. He drinks alcohol occasionally and denies illicit drugs to me Labs including CBC, BMP, liver enzymes are unremarkable. Hemoglobin A1c is normal at 4.7%. Lipid profile is acceptable. TSH is low at 0.4 but normal free T4 at 1.2. Urine drug screen is positive for methamphetamine and benzodiazepines. Coronavirus was undetected EKG showing normal sinus rhythm with sinus arrhythmia at 64 bpm, with QTC at 400. Also has some ST elevation although they look more of a liver presentation with no respiratory changes. Review of Systems Review of systems CONSTITUTIONAL: No fever, no malaise, no fatigue. HEENT: No recent visual problems or hearing problems. Denied any sore throat. CARDIOVASCULAR: No orthopnea, PND, no palpitations, no syncope. PULMONARY: No shortness of breath, no cough, no hemoptysis. GASTROINTESTINAL: No diarrhea, no nausea, no vomiting, no abdominal pain. N ormoactive bowel sounds. NEUROLOGICAL: No headaches, no weakness, no numbness. HEMATOLOGICAL: Denies any bleeding or petechiae. GENITOURINARY: Denies any burning micturition, frequency, or urgency. MUSCULOSKELETAL/RHEUMATOLOGICAL: Denies any joint pain, swelling, or any muscle pain. ENDOCRINE: Denies any polyuria or polydipsia. Past Medical History Past Medical History: Hypertension Additional Past Medical History / Comment(s): Severe anxiety, migraines, chronic back pain, difficulty with focusing attention. History of Any Multi-Drug Resistant Organisms: None Reported Past Surgical History: Orthopedic Surgery Additional Past Surgical History / Comment(s): Left wrist open reduction internal fixation, lipoma removed from right posterior shoulder. Past Anesthesia/Blood Transfusion Reactions: No Reported Reaction Smoking Status: Current every day smoker - Past Family History Father Family Medical History: Cancer, CVA/TIA, Myocardial Infarction ([place]) Additional Family Medical History / Comment(s): Father is alive at age 58. Patient states he has a rare cancer and undergoing chemotherapy. Mother Family Medical History: Coronary Artery Disease (CAD), Hypertension, Syncope Additional Family Medical History / Comment(s): Mother is alive at age 54 and also has history of anxiety and depression. Sister(s) History Unknown: Yes Family Medical History: No Reported History Medications and Allergies Home Medications Medication Instructions Recorded Confirmed Type Ergocalciferol [Vitamin D2 50,000 unit PO GUERRERO 07/18/18 01/07/21 History (SASCHA)] ARIPiprazole [Abilify] 15 mg PO HS 30 Days tablet 12/03/19 01/07/21 Rx Acetaminophen Tab [Tylenol] 650 mg PO Q4HR PRN tab 12/03/19 01/07/21 Rx Nicotine 14Mg/24Hr Patch [Habitrol] 1 patch TRANSDERM DAILY 14 Days 12/03/19 01/07/21 Rx patch Vortioxetine Hydrobromide 10 mg PO DAILY 30 Days tablet 12/03/19 01/07/21 Rx [Trintellix] clonazePAM [KlonoPIN] 0.5 mg PO TID 14 Days #42 tab 12/03/19 01/07/21 Rx Allergies Allergy/AdvReac Type Severity Reaction Status Date / Time No Known Allergies Allergy Verified 01/07/21 21:36 Physical Exam Vitals: Vital Signs Temp Pulse Pulse Pulse Resp BP BP 01/09/21 09:57 96.9 F L 113 H 16 140/76 01/08/21 21:57 62 01/08/21 18:05 143 H 16 106/63 01/08/21 15:57 126 H 120/79 01/08/21 12:41 97.7 F 145 H 16 107/73 GENERAL: The patient is alert and oriented x3, not in any acute distress. Well developed, well nourished. HEENT: Pupils are round and equally reacting to light. EOMI. No scleral icterus. No conjunctival pallor. Normocephalic, atraumatic. No pharyngeal erythema. No thyromegaly. CARDIOVASCULAR: S1 and S2 present. No murmurs, rubs, or gallops. PULMONARY: Chest is clear to auscultation, no wheezing or crackles. ABDOMEN: Soft, nontender, nondistended, normoactive bowel sounds. No palpable organomegaly. MUSCULOSKELETAL: No joint swelling or deformity. EXTREMITIES: No cyanosis, clubbing, or pedal edema. NEUROLOGICAL: Gross neurological examination did not reveal any focal deficits. SKIN: No rashes. no petechiae. Results CBC & Chem 7: 01/08/21 06:38 01/08/21 06:38 Labs: Abnormal Lab Results - Last 24 Hours (Table) 01/08/21 Range/Units 06:38 HDL Cholesterol 29.0 L (40.0-60.0) mg/dL Assessment and Plan Assessment: -chest pain with EKG showing ST elevation suspicious for earlier presentation and tachycardia, sinus arrhythmia, we will order troponin 2 and consult cardiology for further evaluation. Especially he has risk factors of smoking and hypertension and possible noncompliance with his medication -Tachycardia most likely secondary to stress, however patient has tachycardia at rest of 113, rule out cardiac causes. Free T4 is normal -Subclinical hyperthyroidism with low TSH and normal T4 -Nicotine dependence, counseled to quit he agrees. Nicotine patch -Psychosis and other sac illnesses, but as per psychiatric primary team We recommend patient follow up with his primary Dr. grovre lombardo discharged within 1 week, patient was instructed with the same Thank you for consulting us, we will see the patient on as needed basis. Please feel free to contact us for any further question or concerns
[2021-01-09 11:27] LABS: Partial Thromboplastin Time 24.8 sec (22.0-30.0); Prothrombin Time 10.5 sec (9.0-12.0)
--- NOTE | 2021-01-09 13:00 | CONS ---
CONSULTATION CHIEF COMPLAINT: Chest pain. This is a 30-year-old gentleman who was admitted to hospital for Ativan withdrawal. He has history of anxiety, attention deficit disorder and depression. He came into hospital with withdrawal symptoms. He complained of palpitations, sharp atypical chest pain, and Cardiology has been consulted for the same. At the time of my evaluation this morning, he is [id number], hemodynamically stable and in no apparent distress and does not have any significant symptoms. An EKG shows sinus rhythm with early repolarization changes. PAST MEDICAL HISTORY: Significant for depression, anxiety, attention deficit disorder. MEDICATIONS: Medications are as charted. ALLERGIES: NONE. FAMILY HISTORY: Significant for coronary artery disease in his father and mother. SOCIAL HISTORY: Significant for vaping. There is no history of EtOH abuse or drug abuse. REVIEW OF SYSTEMS: HEENT is unremarkable. CARDIAC: As described above. RESPIRATORY: Negative. GI: Negative. GENITOURINARY: Negative. ALLERGY/IMMUNOLOGY: Negative. SKIN: Negative. MUSCULOSKELETAL: Negative. ENDOCRINE: Negative. DERMATOLOGY: Negative. CONSTITUTIONAL: Negative. PSYCHOSOCIAL: Significant for depression, anxiety. PHYSICAL EXAMINATION: Comfortable at rest. Vital signs are stable. Chest exam reveals good air entry bilaterally. Heart exam reveals first and second heart sounds. No gallop. No murmur. Abdomen is soft, nontender. Examination of extremities did not reveal any edema. Peripheral pulses are felt. ASSESSMENT: Atypical chest pain. EKG is normal. The patient does not have any cardiac arrhythmia, does not require any cardiac workup at this time. On discharge arrange followup. We might consider an outpatient stress test. MMODL / IJN: [id number] /
--- NOTE | 2021-01-09 13:46 | PN ---
PROGRESS NOTE DATE OF SERVICE: 01/09/2021 CHIEF COMPLAINT: The patient was delusional, having hallucinations, having disorganized behavior and struggling with significant substance use issues. INTERVAL HISTORY: The patient has been doing fair. He had a quiet day yesterday. He tends to keep to himself. He comes out on the unit and will interact a little with others. He did not attend groups yesterday. He had an elevated pulse of 143 yesterday. Medical consultation was obtained and he will be seen today by Drs. Alexa Patel. He said he slept fairly well last night. Today he has been up. Again he mostly keeps to himself. He said he has been having some issues with chest pain, which is another issue that is being addressed in consultation. He said that he has had some chest pain issues on and off for a while, though he was vague on particulars. He did not indicate issues with that when he presented to the hospital. Review of systems on evaluation were negative for all systems. He notes that he did have some outpatient cardiac evaluation about a year ago at this facility, though I was not able to find records. The patient says that overall he is doing fairly well. He said he had a discussion with his parents and stated that things seem to be okay in regard to their issues and concerns. He notes that he does anticipate going back to live with his parents, at least in the short run. He was vague about beyond that. He notes that he feels tired after he takes each of the doses of his Zyprexa and was requesting that the dose be reduced. It is also noted that he is currently on Ativan in a dose reduction titration relating to his prior use of Klonopin and Xanax at home. Again we discussed the issue of short-term use of Ativan relating to prevention of seizure issues. The patient seems to accept the idea that he may be dealing with withdrawal issues from benzodiazepines as well as other abusive substances. MENTAL STATUS: Patient sat without restlessness. He gave fairly good eye contact. Psychomotor activity was slowed. Speech was monotone. He did not say much. He spoke in a soft voice and responded with brief answers. His affect was constricted, his mood reserved. He did not appear to be significantly distressed. It was difficult to assess for thought disorder. He indicated no thoughts of harm. Cognition was clear. ASSESSMENT: I will continue current diagnosis and treatment plan. We are on a dose reduction of Ativan in relationship to his going off of benzodiazepines. He had been taking Klonopin 2 mg twice a day and Xanax 2 mg at bedtime for some period of time leading up to this hospitalization. He was vague on how consistent he was with taking the medications. At this point he is on Ativan 0.5 mg 4 times a day. I will reduce the dose tomorrow to 3 times a day. I will reduce Zyprexa to 2.5 mg twice a day, 5 mg at bedtime. He will continue Abilify 15 mg at bedtime. I had an extensive discussion with the patient regarding withdrawal issues. He is under petition for involuntary hospitalization. We will focus on stabilization and discharge planning. DELMAR / AMRTHA: [id number] / DANGELO
[2021-01-09] MEDS: OLANZapine 2.5 MG TAB PO SCH (15:13)
[2021-01-09] MEDS: ARIPiprazole 15 MG TAB PO SCH (20:51)
[2021-01-10] MEDS: LORazepam 0.5 MG TAB PO SCH ×3 (00:21→20:10)
[2021-01-10] MEDS ORDERED: LORazepam 0.5 MG TAB PO SCH (09:00)
[2021-01-10] MEDS: NICOTINE 21MG/24HR PATCH TRANSDERM SCH (09:08)
[2021-01-10] MEDS: OLANZapine 2.5 MG TAB PO SCH (09:09)
[2021-01-10] MEDS ORDERED: hydrOXYzine pamoate 25 MG CAP PO PRN (11:19)
--- NOTE | 2021-01-10 11:28 | P.PN ---
Progress Note - Text Progress Note Date: 01/10/21 Interval History: Patient was seen taking part in group today and was directable and agreeable to speak with commercial real estate underwriter in the office. Patient appeared to be fairly calm with regular however did state that he feels mildly depressed today and anxious. He spoke about the reason for him coming into the hospital and claims that it was his father that did the petition on him. He had several questions about the court process and meeting with the vice president compliance today. He states that he has been taking his medications however still feels anxious. He was agreeable to have his medications adjusted and to try Vistaril today. He listed off several different medications that have not work for him in the past however claims that he was taking Klonopin and Ativan from his psychiatrist prior to coming into the hospital. He states that he has been sleeping fairly. He has a fair appetite. At this time patient denies any suicidal or homical ideations, intent or plan. Patient denies any auditory, visual hallucinations and denies any paranoia or delusions. Patient denies any side effects from the medications and has been compliant with meds. Mental Status Exam: General Appearance: Patient appears to be stated age is alert, directable, and cooperative. Behavior: Patient is calmly seated without any agitated behavior. Calm today Speech: Patient's speech is fluent and nonpressured. Mood/Affect: Mood is improving mildly however is anxious, affect is congruent and constricted. Suicidality/Homicidality: Patient denies having any suicidal or homicidal ideation intent or plan. Perceptions: Patient denies any visual hallucinations and denies any auditory hallucinations Though content/process: There is no evidence of any delusional thought content and thought process is linear and goal-directed. Preoccupied with his medications. Memory and concentration: AOX3, grossly intact for the purposes of this session Judgment and insight: Improving mildly Assessment Psychosis unspecified Benzodiazepine use disorder Nicotine dependence Plan: -Patient continues to meet criteria for inpatient psychiatric admission for symptom stabilization and safety. Patient has not signed adult voluntary form and was placed in patient's chart. -Medications: Change Zyprexa to 5 mg twice a day for mood s tabilization/psychosis. Abilify 15 mg daily at bedtime for mood stabilization/psychosis. Continue decreasing Ativan 0.5 mg twice a day for anxiety. Added Vistaril 25 mg every 6 hours when necessary for anxiety. -When necessary Ativan and Haldol for agitation/aggression. -NRT - nicotine patch -SW on board for discharge planning. Encouraged the patient to participate in milieu. Currently awaiting deferral with vice president compliance and court date.
[2021-01-10] MEDS: OLANZapine 5 MG TAB PO SCH ×2 (12:56→20:11)
[2021-01-10] MEDS: ARIPiprazole 15 MG TAB PO SCH (20:11)
[2021-01-11] MEDS: NICOTINE 21MG/24HR PATCH TRANSDERM SCH (08:31)
[2021-01-11] MEDS: OLANZapine 5 MG TAB PO SCH ×2 (08:33→20:41)
[2021-01-11] MEDS: LORazepam 0.5 MG TAB PO SCH (08:33)
--- NOTE | 2021-01-11 11:16 | P.PN ---
Progress Note - Text Progress Note Date: 01/11/21 Interval History: Patient was seen laying down in his bed today and was directable and agreeable to speak with writer editor in the office. Patient appeared to be fairly calm today. He continues to state that he is feeling depressed during the day. He claims that his anxiety has been improving however. He was agreeable to start Zoloft as it is helped him in the past. He states that he is sleeping fairly at nighttime and wants to remain on the Zyprexa and the Abilify at night. He was less focused on the petition today and the problems with his family. He was asking about the court process and when he can sign a deferral. He states that he has been trying to go to groups and participate as best as he can. He has a fair appetite. At this time patient denies any suicidal or homical ideations, intent or plan. Patient denies any auditory, visual hallucinations and denies any paranoia or delusions. Patient denies any side effects from the medications and has been compliant with meds. Mental Status Exam: General Appearance: Patient appears to be stated age is alert, directable, and cooperative. Behavior: Patient is calmly seated without any agitated behavior. Calm today Speech: Patient's speech is fluent and nonpressured. Mood/Affect: Mood is continuing to be depressed, affect is congruent and constricted. Suicidality/Homicidality: Patient denies having any suicidal or homicidal ideation intent or plan. Perceptions: Patient denies any visual hallucinations and denies any auditory hallucinations Though content/process: There is no evidence of any delusional thought content and thought process is linear and goal-directed. Memory and concentration: AOX3, grossly intact for the purposes of this session Judgment and insight: Improving mildly Assessment: Psychosis unspecified Benzodiazepine use disorder Nicotine dependence Plan: -Patient continues to meet criteria for inpatient psychiatric admission for symptom stabilization and safety. Patient has not signed adult voluntary form and was placed in patient's chart. -Medications: Decrease Zyprexa 5 mg QHS for mood stabilization/psychosis. Continue with Abilify 15 mg daily at bedtime for mood stabilization/psychosis. Continue decreasing Ativan 0.5 mg qhs for anxiety. Vistaril 25 mg every 6 hours when necessary for anxiety. Added Zoloft 50 mg daily for mood/anxiety. -When necessary Ativan and Haldol for agitation/aggression. -NRT - nicotine patch -SW on board for discharge planning. Encouraged the patient to participate in milieu. Currently awaiting deferral with his commercial attorney scheduled for 01/[address] scheduled for 01/26. Likely discharge on if patient ends up signing deferral.
[2021-01-11] MEDS: SERTRALINE 50 MG TAB PO SCH (11:33)
[2021-01-11] MEDS: ARIPiprazole 15 MG TAB PO SCH (20:41)
[2021-01-11] MEDS ORDERED: LORazepam 0.5 MG TAB PO SCH (21:00)
[2021-01-12] MEDS: NICOTINE 21MG/24HR PATCH TRANSDERM SCH (08:29)
[2021-01-12] MEDS: SERTRALINE 50 MG TAB PO SCH (08:29)
[2021-01-12] MEDS ORDERED: diphenhydrAMINE 25 MG CAP PO PRN (09:31)
--- NOTE | 2021-01-12 09:35 | P.PN ---
Progress Note - Text Progress Note Date: 01/12/21 Interval History: Patient was seen laying down in his bed today and was directable and agreeable to speak with card writer hand in the office. Patient appeared to be fairly calm today and appropriate with card writer hand. He claims that he is still having significant anxiety and states that he has not felt much improvement with the medication so far with regards to this. He also states that he is still feeling depressed as well and has not felt any difference being on the Zoloft yet. He was agreeable to have his Zoloft increased and also to try Vistaril today. He states that he was able to sleep fairly last night with the medications however was requesting to have his Zyprexa discontinued. She states that he did speak with his parents a couple of days ago and the plan will be to go back to stay with them once he is discharged. States that he is attempting to go to groups and participate whenever he can. He is eating fairly as a fair appetite. At this time patient denies any suicidal or homical ideations, intent or plan. Patient denies any auditory, visual hallucinations and denies any paranoia or delusions. Patient denies any side effects from the medications and has been compliant with meds. Mental Status Exam: General Appearance: Patient appears to be stated age is alert, directable, and cooperative. Behavior: Patient is calmly seated without any agitated behavior. Calm today Speech: Patient's speech is fluent and nonpressured. Mood/Affect: Mood is continuing to be depressed and anxious, affect is congruent and constricted. Suicidality/Homicidality: Patient denies having any suicidal or homicidal ideation intent or plan. Perceptions: Patient denies any visual hallucinations and denies any auditory hallucinations Though content/process: There is no evidence of any delusional thought content and thought process is linear and goal-directed. Memory and concentration: AOX3, grossly intact for the purposes of this session Judgment and insight: Improving mildly Assessment: Psychosis unspecified Benzodiazepine use disorder Nicotine dependence Plan: -Patient continues to meet criteria for inpatient psychiatric admission for symptom stabilization and safety. Patient has not signed adult voluntary form and was placed in patient's chart. -Medications: d/c Zyprexa at this time. Continue with Abilify 15 mg daily at bedtime for mood stabilization/psychosis. d/c ativan. start scheduled Vistaril 25 mg BID for anxiety. increased Zoloft 100 mg daily for mood/anxiety. added benadryl 25 mg qhs prn for insomnia. -When necessary Ativan and Haldol for agitation/aggression. -NRT - nicotine patch -SW on board for discharge planning. Encouraged the patient to participate in milieu. Currently awaiting deferral with his workers compensation attorney scheduled for 01/[address] scheduled for 01/26. Likely discharge on if patient ends up signing deferral.
[2021-01-12] MEDS: hydrOXYzine pamoate 25 MG CAP PO SCH ×2 (11:33→20:21)
[2021-01-12] MEDS: ARIPiprazole 15 MG TAB PO SCH (20:21)
[2021-01-13 06:43] VITALS: BP 112/58; PULSE 64; RESP 15; TEMP 98
[2021-01-13] MEDS: hydrOXYzine pamoate 25 MG CAP PO SCH (08:37)
[2021-01-13] MEDS: NICOTINE 21MG/24HR PATCH TRANSDERM SCH (08:37)
[2021-01-13] MEDS ORDERED: SERTRALINE 100 MG TAB PO SCH (09:00)
[2021-01-13] MEDS ORDERED: hydrOXYzine pamoate 25 MG CAP PO ONE (10:03)
--- NOTE | 2021-01-13 10:27 | P.DS ---
Providers Date of admission: 01/07/21 20:22 Expected date of discharge: 01/13/21 Attending physician: Alejo Birmingham MD Consults: 01/07/21 20:32 Consult Physician Routine Consulting Provider: Can Maxwell Consult Reason/Comments: medical management Do you want consulting provider notified?: Yes 01/09/21 10:28 Consult Physician Urgent Consulting Provider: Luis Angel Liu Consult Reason/Comments: chest pain . tachycardia, abn ekg Do you want consulting provider notified?: Yes Primary care physician: Becky Cristobal - Discharge Diagnosis(es) (1) Unspecified psychosis Current Visit: Yes Status: Acute Priority: High (2) Benzodiazepine abuse Current Visit: Yes Status: Acute Priority: High (3) Nicotine dependence Current Visit: Yes Status: Acute Priority: Low Hospital Course: Admission HPI: Admission note was completed by Dr. Mayen and summarized as follows: Patient is a 30-year-old male who currently resides with his parents and was brought to the ED by police on petition from his parents. The patient was delusional having hallucinations having disorganized behavior and struggling with significant substance use issues. Patient minimized his concerns that were raised by his parents on the petition. Apparently in the last few years patient has developed more psychotic symptoms including hearing voices paranoid thinking and delusional thinking. He recently moved back with his parents. According to petition patient had apparently been found patrolling the house outside at night moving garbage cans to cover outside basement windows and believing there are speakers in the [place] and people are coming in to get him. Patient had been apparently spending most of his time in his room all day. Both the patient and the parents emphasize significant substance use issues that go back to his early 20s including drinking and abusing opioid pain medications and high doses of prescribed amphetamines. Patient also had been receiving Xanax and Klonopin from one of his doctors. Patient apparently had reported that his doctor psychiatrist Rey in the [place] area isn't seeing for several years has been prescribing him a broad range of habit forming medications including amphetamines. The patient was reporting having auditory hallucinations. Patient was also reporting high levels of anxiety. Hospital course: Upon admission to the unit patient was initially psychotic depressed and anxious. Patient was however admitted involuntarily and ended up agreeing to treatment and taking his medications. He will meet with his traffic law attorney today and plans to sign deferral later on today prior to discharge. Patient got along well with other patients on the unit and followed unit protocol. Patient was compliant with the medications and denied any side effects throughout hospital course. Patient was started on Zoloft and titrate up the dose of 100 mg daily for mood/anxiety. Patient was also started on Vistaril and titrate up the dose of 50 mg twice a day for anxiety. He was restarted back on Abilify and titrated up to dose of 15 mg qhs for mood stabilization/psychosis. Patient was initially started on a standing dose of Ativan due to patient being on klonopin and xanax prioir to arrival and was gradually tapered off all benzodiazepines. He was also started initially on zyprexa to hekp control w/d sx and psychotic sx however due to sedation and already being on another antipsychotic, he was tapered off zyprexa. Benadryl was added 25 mg qhs prn for insomnia. Patient spoke of his stressors and engaged in therapy both group and individual. Patient was also seen by medical team for history and physical exam. Patient was seen by Cardiology for consultation for chest pain initially who evaluated patient and did not recommend further testing and outpatient follow up within two weeks for possible stress test if needed. Throughout the course of the hospitalization patient gradually improved with regards to mood, anxiety, psychosis, sleep and became more future oriented. Patient is continuing to have some mild anxiety symptoms likely due to chronically being on benzodiazepines however states that he is able to manage his anxiety with other techniques and was instructed to remain on the current medications and do close outpatient follow-up for need of titration of the medications, he was agreeable to this and verbally understood. Patient returned back to his baseline level of functioning. On the day of discharge patient denied any suicidal or homicidal ideations intent or plan denied any auditory or visual hallucinations. Patient endorsed wanting to live for his health and family. The patient denied any access to guns or weapons. Patient denied any paranoia and did not endorse any delusions. Patient does have a significant history of substance abuse and was counseled on abstaining from all substances including alcohol and marijuana. Patient was offered however declined inpatient substance-abuse rehab. Patient was also counseled on the medications and need for regular compliance and was encouraged to follow-up with their outpatient appointment for mental health and also for primary care. Prior to discharge a family meeting will be arranged by social media developer to answer any questions and ensure safety upon discharge. Mental status exam: General Appearance: Patient appears to be stated age is alert, pleasant, and cooperative. Patient is in no acute distress and has improved hygiene and grooming Behavior: Patient is calmly seated without any agitated behavior. Speech: Patient's speech is fluent and nonpressured. Mood/Affect: Patient reports their mood is "good", affect is congruent Suicidality/Homicidality: Patient denies having any suicidal or homicidal ideation intent or plan. Perceptions: Patient denies any auditory or visual hallucinations. Though content/process: There is no evidence of any delusional thought content and thought process is linear and goal-directed. more future oriented Memory and concentration: AOX3, grossly intact for the purposes of this session. Can spell "WORLD" backwards correctly. Judgment and insight: chronically poor, however has improved with guarded prognosis Impression: Psychosis unspecified Benzodiazepine abuse Nicotine dependence Plan: -Continue with discharge today as patient has improved and stabilized psychiatrically and is not currently an imminent threat to himself and/or others. Patient will remain at chronically elevated risk for harm to self and/or others due to his impulsivity and substance abuse. -Continue medications: Continue with Abilify 15 mg daily at bedtime for mood stabilization/psychosis, Vistaril 50 mg twice a day for anxiety, Zoloft 100 mg daily for mood/anxiety which can gradually be increased as an outpatient over the next 1-2 weeks by his psychiatrist. Benadryl 25 mg daily at bedtime when necessary for insomnia. House Builder spoke with patient about the harm of abusing and possible overdose potential of benzodiazepines which patient verbally understood and agreed. -Patient was counseled on the need for medication compliance and appropriate follow-up at mental health and also primary care for medical issues. Patient verbalized understanding and agreed. -Social work to arrange for and conduct family meeting to ensure safety upon discharge and answer any questions/concerns. SW to ensure that family has locked or got rid of guns/ weapons in the house. Social work also to arrange for patients follow up appointments for psychiatric care along with follow up with primary care provider. -Patient counseled on abstaining from recreational drugs and marijuana and alcohol. Was informed/educated on the adverse effects on their physical and mental health. Patient verbally agreed and understood. Patient was offered substance abuse treatment however declined at this time. -Patient was instructed to return to the hospital or seek immediate medical care if their psychiatric or medical symptoms do worsen or reoccur. Allergies Allergy/AdvReac Type Severity Reaction Status Date / Time No Known Allergies Allergy Verified 01/07/21 21:36 Laboratory Results WBC 9.4 k/uL (3.8-10.6) 01/08/21 06:38 RBC 5.67 m/uL (4.30-5.90) 01/08/21 06:38 Hgb 17.5 gm/dL (13.0-17.5) 01/08/21 06:38 Hct 52.7 % (39.0-53.0) 01/08/21 06:38 MCV 92.9 fL (80.0-100.0) 01/08/21 06:38 MCH 30.9 pg (25.0-35.0) 01/08/21 06:38 MCHC 33.3 g/dL (31.0-37.0) 01/08/21 06:38 RDW 13.8 % (11.5-15.5) 01/08/21 06:38 Plt Count 265 k/uL (150-450) 01/08/21 06:38 MPV 8.1 01/08/21 06:38 Neutrophils % 65 % 01/08/21 06:38 Lymphocytes % 25 % 01/08/21 06:38 Monocytes % 5 % 01/08/21 06:38 Eosinophils % 3 % 01/08/21 06:38 Basophils % 1 % 01/08/21 06:38 Neutrophils # 6.1 k/uL (1.3-7.7) 01/08/21 06:38 Lymphocytes # 2.3 k/uL (1.0-4.8) 01/08/21 06:38 Monocytes # 0.5 k/uL (0-1.0) 01/08/21 06:38 Eosinophils # 0.2 k/uL (0-0.7) 01/08/21 06:38 Basophils # 0.1 k/uL (0-0.2) 01/08/21 06:38 PT 10.5 sec (9.0-12.0) 01/09/21 10:55 INR 1.0 (<1.2) 01/09/21 10:55 APTT 24.8 sec (22.0-30.0) 01/09/21 10:55 D-Dimer <0.17 mg/L FEU (<0.60) 01/09/21 10:55 Sodium 140 mmol/L (137-145) 01/08/21 06:38 Potassium 4.7 mmol/L (3.5-5.1) 01/08/21 06:38 Chloride 102 mmol/L (98-107) 01/08/21 06:38 Carbon Dioxide 28 mmol/L (22-30) 01/08/21 06:38 Anion Gap 10 mmol/L 01/08/21 06:38 BUN 22 mg/dL (9-20) H 01/08/21 06:38 Creatinine 1.17 mg/dL (0.66-1.25) 01/08/21 06:38 Est GFR (CKD-EPI)AfAm >90 (>60 ml/min/1.73 sqM) 01/08/21 06:38 Est GFR (CKD-EPI)NonAf 83 (>60 ml/min/1.73 sqM) 01/08/21 06:38 Glucose 93 mg/dL (74-99) 01/08/21 06:[address] Glu mg/dL 88 01/08/21 06:38 Hemoglobin A1c 4.7 % (4.0-6.0) 01/08/21 06:38 Calcium 10.1 mg/dL (8.4-10.2) 01/08/21 06:38 Total Bilirubin 0.9 mg/dL (0.2-1.3) 01/08/21 06:38 AST 28 U/L (17-59) 01/08/21 06:38 ALT 14 U/L (4-49) 01/08/21 06:38 Alkaline Phosphatase 69 U/L (38-126) 01/08/21 06:38 Troponin I <0.012 ng/mL (0.000-0.034) 01/09/21 15:43 Total Protein 7.5 g/dL (6.3-8.2) 01/08/21 06:38 Albumin 4.7 g/dL (3.5-5.0) 01/08/21 06:38 Triglycerides 84.0 mg/dL (0.0-149.0) 01/08/21 06:38 Cholesterol 111 mg/dL (0-200) 01/08/21 06:38 LDL Cholesterol, Calc 65.2 mg/dL (0.0-131.0) 01/08/21 06:38 VLDL Cholesterol, Calc 16.80 mg/dL (5.00-40.00) 01/08/21 06:38 HDL Cholesterol 29.0 mg/dL (40.0-60.0) L 01/08/21 06:38 Cholesterol/HDL Ratio 3.83 01/08/21 06:38 TSH 0.419 mIU/L (0.465-4.680) L 01/08/21 06:38 Free T4 1.20 ng/dL (0.80-1.80) 01/08/21 06:38 Urine Opiates Screen Not Detected (NotDetected) 01/07/21 13:52 Ur Oxycodone Screen Not Detected (NotDetected) 01/07/21 13:52 Urine Methadone Screen Not Detected (NotDetected) 01/07/21 13:52 Ur Propoxyphene Screen Not Detected (NotDetected) 01/07/21 13:52 Ur Barbiturates Screen Not Detected (NotDetected) 01/07/21 13:52 U Tricyclic Antidepress Not Detected (NotDetected) 01/07/21 13:52 Ur Phencyclidine Scrn Not Detected (NotDetected) 01/07/21 13:52 Ur Amphetamines Screen Detected (NotDetected) H 01/07/21 13:52 U Methamphetamines Scrn Not Detected (NotDetected) 01/07/21 13:52 U Benzodiazepines Scrn Detected (NotDetected) H 01/07/21 13:52 Urine Cocaine Screen Not Detected (NotDetected) 01/07/21 13:52 U Marijuana (THC) Screen Not Detected (NotDetected) 01/07/21 13:52 Coronavirus (PCR) Not Detected (Not Detectd) 01/07/21 15:16 Vital Signs Temp 98.0 F 01/13/21 06:42 Pulse 64 01/13/21 06:42 Resp 15 01/13/21 06:42 BP 112/58 01/13/21 06:42 Pulse Ox 99 01/10/21 06:09 Patient Condition at Discharge: Stable Plan - Discharge Summary Discharge Rx Participant: No New Discharge Prescriptions: New hydrOXYzine pamoate [Vistaril] 50 mg PO BID 30 Days cap Ergocalciferol [Vitamin D2 (1250 Mcg = 90850 Iu)] 1,250 mcg PO GUERRERO 30 Days ARIPiprazole [Abilify] 15 mg PO HS 30 Days tab diphenhydrAMINE [Benadryl] 25 mg PO HS PRN 30 Days cap PRN Reason: Insomnia Nicotine 21Mg/24Hr Patch [Habitrol] 1 patch TRANSDERM DAILY 14 Days patch Sertraline [Zoloft] 100 mg PO DAILY 30 Days tab Discontinued Ergocalciferol [Vitamin D2 (DRISDOL)] 50,000 unit PO GUERRERO ARIPiprazole [Abilify] 15 mg PO HS 30 Days tablet Nicotine 14Mg/24Hr Patch [Habitrol] 1 patch TRANSDERM DAILY 14 Days patch clonazePAM [KlonoPIN] 0.5 mg PO TID 14 Days #42 tab Vortioxetine Hydrobromide [Trintellix] 10 mg PO DAILY 30 Days tablet Acetaminophen Tab [Tylenol] 650 mg PO Q4HR PRN tab PRN Reason: Pain/Discomfort Discharge Medication List ARIPiprazole [Abilify] 15 mg PO HS 30 Days tab 01/13/21 [Rx] Ergocalciferol [Vitamin D2 (1250 Mcg = 98411 Iu)] 1,250 mcg PO GUERRERO 30 Days 01/13/21 [Rx] Nicotine 21Mg/24Hr Patch [Habitrol] 1 patch TRANSDERM DAILY 14 Days patch 01/13/21 [Rx] Sertraline [Zoloft] 100 mg PO DAILY 30 Days tab 01/13/21 [Rx] diphenhydrAMINE [Benadryl] 25 mg PO HS PRN 30 Days cap 01/13/21 [Rx] hydrOXYzine pamoate [Vistaril] 50 mg PO BID 30 Days cap 01/13/21 [Rx] Follow up Appointment(s)/Referral(s): Becky Cristobal MD [Primary Care Provider] - 1-2 days Luis Angel Liu MD [STAFF PHYSICIAN] - 2 Weeks Activity/Diet/Wound Care/Special Instructions: Activity and diet as tolerated. Avoid the use of street drugs and alcohol. Take all medications as prescribed. When you are in need of refills on your medications please contact your medical provider and/or outpatient psychiatrist to have this done. Please go to scheduled outpatient appointment for aftercare treatment. If symptoms return or become worse, call the crisis line at and/or go to the nearest emergency room for evaluation. Discharge Disposition: HOME SELF-CARE
[2021-01-13] MEDS ORDERED: hydrOXYzine pamoate 25 MG CAP PO SCH (21:00)
== END 2021-01-13 17:08 | disposition home or self-care (01) ==
LOC: EC 12:44 → 3MHU 20:22
PROVIDERS: ADMIT Psychiatry & Neurology Psychiatry; ATTEND Psychiatry & Neurology Psychiatry
CPT/HCPCS: 80053; 80061; 80306; 82075; 83036; 84439; 84443; 84484; 85025; 85379; 85610; 85730; 87635; 93005; 96372; 99285

== ENCOUNTER 2021-06-05 22:28 | Emergency (ER) | payer OTHER ==
[2021-06-05 22:35] VITALS: TEMP 98.3
--- NOTE | 2021-06-05 23:02 | ED ---
Chest Pain HPI - General Chief Complaint: Chest Pain Stated Complaint: Chest Pain Time Seen by Provider: 06/05/21 22:42 Source: patient Mode of arrival: ambulatory Limitations: no limitations - History of Present Illness Initial Comments: This patient is a 31-year-old man who presents with complaint of left upper chest pains that is been intermittent going back about 4 years now. He describes it as a squeezing, stating that it comes on briefly and then goes away. The patient has not noted any associated symptoms. MD Complaint: chest pain -: hour(s) Onset: during rest Pain Location: left chest Pain Radiation: none Severity: mild Quality: aching Consistency: intermittent Improves With: nothing Worsens With: nothing Treatments Prior to Arrival: none - Related Data Previous Rx's Medication Instructions Recorded ARIPiprazole [Abilify] 15 mg PO HS 30 Days tab 01/13/21 Ergocalciferol [Vitamin D2 (1250 1,250 mcg PO GUERRERO 30 Days 01/13/21 Mcg = 28891 Iu)] Nicotine 21Mg/24Hr Patch [Habitrol] 1 patch TRANSDERM DAILY 14 Days 01/13/21 patch Sertraline [Zoloft] 100 mg PO DAILY 30 Days tab 01/13/21 diphenhydrAMINE [Benadryl] 25 mg PO HS PRN 30 Days cap 01/13/21 hydrOXYzine pamoate [Vistaril] 50 mg PO BID 30 Days cap 01/13/21 Allergies Allergy/AdvReac Type Severity Reaction Status Date / Time No Known Allergies Allergy Verified 06/05/21 22:32 Review of Systems ROS Statement: Those systems with pertinent positive or pertinent negative responses have been documented in the HPI. ROS Other: All systems not noted in ROS Statement are negative. Constitutional: Denies: fever, chills Respiratory: Denies: cough, dyspnea, wheezes Cardiovascular: Reports: chest pain. Denies: palpitations, dyspnea on exertion, edema, syncope Gastrointestinal: Denies: abdominal pain, nausea, vomiting, diarrhea Genitourinary: Denies: dysuria, hematuria Musculoskeletal: Denies: back pain Skin: Denies: rash Neurological: Denies: headache, weakness EKG Findings - EKG Results: EKG: interpreted by VIRA WNL, sinus rhythm (With sinus arrhythmia, rate 85 bpm ), normal axis, normal QRS, normal ST/T, no acute changes Past Medical History Past Medical History: Hypertension Additional Past Medical History / Comment(s): Severe anxiety, migraines, chronic back pain, difficulty with focusing attention. History of Any Multi-Drug Resistant Organisms: None Reported Past Surgical History: Orthopedic Surgery Additional Past Surgical History / Comment(s): Left wrist open reduction internal fixation, lipoma removed from right posterior shoulder. Past Anesthesia/Blood Transfusion Reactions: No Reported Reaction Past Psychological History: ADD/ADHD, Anxiety, Depression Smoking Status: Current every day smoker Past Alcohol Use History: Occasional Past Drug Use History: None Reported - Past Family History Father Family Medical History: Cancer, CVA/TIA, Myocardial Infarction (DC) Additional Family Medical History / Comment(s): Father is alive at age 58. Patient states he has a rare cancer and undergoing chemotherapy. Mother Family Medical History: Coronary Artery Disease (CAD), Hypertension, Syncope Additional Family Medical History / Comment(s): Mother is alive at age 54 and also has history of anxiety and depression. Sister(s) History Unknown: Yes Family Medical History: No Reported History General Exam Limitations: no limitations General appearance: alert, in no apparent distress Head exam: Present: atraumatic, normocephalic Eye exam: Present: normal appearance. Absent: scleral icterus, conjunctival injection Respiratory exam: Present: normal lung sounds bilaterally. Absent: respiratory distress, wheezes, rales, rhonchi, stridor, chest wall tenderness Cardiovascular Exam: Present: regular rate, normal rhythm, normal heart sounds. Absent: systolic murmur, diastolic murmur, rubs, gallop GI/Abdominal exam: Present: soft. Absent: distended, tenderness, guarding, rebound, rigid, mass Extremities exam: Present: normal inspection, normal capillary refill. Absent: pedal edema, calf tenderness Back exam: Present: normal inspection. Absent: CVA tenderness (R), CVA tenderness (L) Neurological exam: Present: alert Skin exam: Present: warm, dry, intact, normal color. Absent: rash Course Vital Signs 06/05/21 22:32 Temperature 98.3 F Pulse Rate 89 Respiratory 20 Rate Blood Pressure 136/86 O2 Sat by Pulse 98 Oximetry Disposition Clinical Impression: Chest pain Disposition: HOME SELF-CARE Condition: Good Instructions (If sedation given, give patient instructions): Chest Pain (ED) Is patient prescribed a controlled substance at d/c from ED?: No Referrals: Becky Cristobal MD [Primary Care Provider] - 1-2 days
--- NOTE | 2021-06-06 00:02 | XR ---
EXAMINATION TYPE: XR chest 2V DATE OF EXAM: 06/05/2021 COMPARISON: NONE HISTORY: Chest pain TECHNIQUE: FINDINGS: Heart and mediastinum are normal. Lungs are clear. Diaphragm is normal. Bony thorax is inta ct. IMPRESSION: Normal chest.
[2021-06-06 00:14] LABS: Basophils % (A) 1 %; Eosinophils # (A) 0.2 k/uL (0-0.7); Eosinophils % (A) 2 %; HCT 49.9 % (39.0-53.0); HGB 16.7 gm/dL (13.0-17.5); Lymphocytes # (A) 1.9 k/uL (1.0-4.8); Lymphocytes % (A) 23 %; MCH 30.2 pg (25.0-35.0); MCHC 33.5 g/dL (31.0-37.0); MCV 90.1 fL (80.0-100.0); Mean Platelet Volume 8.2; Monocytes # (A) 0.6 k/uL (0-1.0); Monocytes % (A) 7 %; Neutrophils # (A) 5.4 k/uL (1.3-7.7); Neutrophils % (A) 66 %; Platelet Count 242 k/uL (150-450); RBC 5.54 m/uL (4.30-5.90); RDW 12.7 % (11.5-15.5); WBC 8.3 k/uL (3.8-10.6)
[2021-06-06 00:28] LABS: ALT 13 U/L (4-49); AST 20 U/L (17-59); African American GFR (CKD) >90 (>60 ml/min/1.73 sqM); Albumin 4.8 g/dL (3.5-5.0); Alkaline Phosphatase 66 U/L (38-126); Anion Gap 12 mmol/L; Blood Urea Nitrogen 18 mg/dL (9-20); Calcium 9.7 mg/dL (8.4-10.2); Carbon Dioxide 27 mmol/L (22-30); Chloride 99 mmol/L (98-107); Glucose 95 mg/dL (74-99); Magnesium 2.1 mg/dL (1.6-2.3); Non-African American GFR(CKD) >90 (>60 ml/min/1.73 sqM); Potassium 4.3 mmol/L (3.5-5.1); Sodium 138 mmol/L (137-145); Total Protein 7.6 g/dL (6.3-8.2)
[2021-06-06 00:32] LABS: Partial Thromboplastin Time 26.3 sec (22.0-30.0); Prothrombin Time 11.2 sec (9.0-12.0)
[2021-06-06 01:26] VITALS: BP 134/81; PULSE 72; RESP 16
== END 2021-06-06 01:26 | disposition home or self-care (01) ==
LOC: EC 22:28
DX: R07.89 Other chest pain (principal); I10 Essential (primary) hypertension; F90.9 Attention-deficit hyperactivity disorder, unspecified type; F41.9 Anxiety disorder, unspecified; F32.A Depression, unspecified; F17.200 Nicotine dependence, unspecified, uncomplicated
CPT/HCPCS: 36415; 71046; 80053; 83735; 84484; 85025; 85379; 85610; 85730; 93005; 99285

== ENCOUNTER 2021-06-08 21:28 | Inpatient (IN) | payer MEDICAID, OTHER ==
--- NOTE | 2021-06-08 22:10 | ED ---
Psych HPI - General Source: patient Mode of arrival: ambulatory - History of Present Illness Complaint: other -: days(s) Associated Psychiatric Symptoms: depression History of same: Yes Quality: constant Improves With: none Worsens With: none <Jhony Roblero - Last Filed: 06/08/21 22:08> <Bird Zhao - Last Filed: 06/09/21 11:23> - General Chief Complaint: Psychiatric Symptoms Stated Complaint: Mental Health Time Seen by Provider: 06/08/21 21:35 - History of Present Illness Initial Comments: This patient is a 31-year-old man who is brought to have Court ordered psychiatric evaluation. When I interview the patient, he states that he is actually feeling okay. He states that he does have a little bit of depression but this been going on for quite some time. He states he is not feeling suicidal or homicidal. (Jhony Roblero) - Related Data Home Medications Medication Instructions Recorded Confirmed ALPRAZolam [Xanax] 2 mg PO HS 06/08/21 06/08/21 Dextroamphetamine/Amphetamine 30 mg PO BID 06/08/21 06/08/21 [Adderall Xr] Sertraline [Zoloft] 50 mg PO DAILY 06/08/21 06/08/21 Testosterone Cypionate 100 mg IM Q14D 06/08/21 06/08/21 [Depo-Testosterone] clonazePAM [KlonoPIN] 2 mg PO BID PRN 06/08/21 06/08/21 Allergies Allergy/AdvReac Type Severity Reaction Status Date / Time No Known Allergies Allergy Verified 06/08/21 23:03 Review of Systems ROS Other: All systems not noted in ROS Statement are negative. Constitutional: Denies: fever Respiratory: Denies: cough, dyspnea Cardiovascular: Denies: chest pain, palpitations Gastrointestinal: Denies: abdominal pain, vomiting, diarrhea Genitourinary: Denies: dysuria, hematuria Musculoskeletal: Denies: back pain Skin: Denies: rash Neurological: Denies: headache <Jhony Roblero - Last Filed: 06/08/21 22:08> ROS Other: All systems not noted in ROS Statement are negative. <Bird Zhao - Last Filed: 06/09/21 11:23> ROS Statement: Those systems with pertinent positive or pertinent negative responses have been documented in the HPI. Past Medical History Past Medical History: Hypertension Additional Past Medical History / Comment(s): Severe anxiety, migraines, chronic back pain, difficulty with focusing attention. History of Any Multi-Drug Resistant Organisms: None Reported Past Surgical History: Orthopedic Surgery Additional Past Surgical History / Comment(s): Left wrist open reduction inter nal fixation, lipoma removed from right posterior shoulder. Past Anesthesia/Blood Transfusion Reactions: No Reported Reaction Past Psychological History: ADD/ADHD, Anxiety, Depression Smoking Status: Former smoker Past Alcohol Use History: Occasional Past Drug Use History: None Reported - Past Family History Father Family Medical History: Cancer, CVA/TIA, Myocardial Infarction ([place]) Additional Family Medical History / Comment(s): Father is alive at age 58. Patient states he has a rare cancer and undergoing chemotherapy. Mother Family Medical History: Coronary Artery Disease (CAD), Hypertension, Syncope Additional Family Medical History / Comment(s): Mother is alive at age 54 and also has history of anxiety and depression. Sister(s) History Unknown: Yes Family Medical History: No Reported History <Jhony oRblero - Last Filed: 06/08/21 22:08> General Exam Limitations: no limitations General appearance: alert, in no apparent distress Head exam: Present: atraumatic, normocephalic Eye exam: Present: normal appearance. Absent: scleral icterus, conjunctival injection ENT exam: Present: normal oropharynx Neck exam: Present: normal inspection Respiratory exam: Present: normal lung sounds bilaterally. Absent: respiratory distress, wheezes, rales, rhonchi, stridor Cardiovascular Exam: Present: regular rate, normal rhythm, normal heart sounds. Absent: systolic murmur, diastolic murmur, rubs, gallop GI/Abdominal exam: Present: soft. Absent: distended, tenderness, guarding, rebound, rigid, mass Extremities exam: Present: normal inspection, normal capillary refill. Absent: pedal edema, calf tenderness Back exam: Present: normal inspection. Absent: CVA tenderness (R), CVA tenderness (L) Neurological exam: Present: alert Psychiatric exam: Present: depressed. Absent: agitated, anxious, flat affect, manic, homicidal ideation, suicidal ideation Skin exam: Present: warm, dry, intact, normal color. Absent: rash <Jhony Roblero Last Filed: 06/08/21 22:08> Course Vital Signs 06/08/21 06/08/21 06/09/21 21:30 22:02 08:05 Temperature 98.1 F 98.1 F Pulse Rate 67 84 66 Respiratory 20 18 16 Rate Blood Pressure 140/75 113/62 128/78 O2 Sat by Pulse 99 97 97 Oximetry Medical Decision Making <Bird Zhao - Last Filed: 06/09/21 11:23> - Medical Decision Making Patient was evaluated by EPS and felt to require inpatient evaluation treatment. He will be admitted to this institution. (Bird Zhao) - Lab Data Lab Results 06/09/21 Range/Units 10:09 Urine Opiates Screen Not Detected (NotDetected) Ur Oxycodone Screen Not Detected (NotDetected) Urine Methadone Screen Not Detected (NotDetected) Ur Propoxyphene Screen Not Detected (NotDetected) Ur Barbiturates Screen Not Detected (NotDetected) U Tricyclic Antidepress Not Detected (NotDetected) Ur Phencyclidine Scrn Not Detected (NotDetected) Ur Amphetamines Screen Detected H (NotDetected) U Methamphetamines Scrn Not Detected (NotDetected) U Benzodiazepines Scrn Detected H (NotDetected) Urine Cocaine Screen Not Detected (NotDetected) U Marijuana (THC) Screen Not Detected (NotDetected) Disposition <Jhony Roblero - Last Filed: 06/08/21 22:08> Is patient prescribed a controlled substance at d/c from ED?: No Decision to Admit Reason: Admit from EC Decision Date: 06/09/21 Decision Time: 11:23 <Bird Zhao - Last Filed: 06/09/21 11:23> Clinical Impression: Acute psychosis Disposition: ADMITTED IP TO THIS [facility] Condition: Stable Referrals: Becky Cristobal MD [Primary Care Provider] - 1-2 days
[2021-06-09 10:34] LABS: Amphetamine Screen,Urine Detected (NotDetected); Barbiturate Screen,Urine Not Detected (NotDetected); Benzodiazepines Screen,Urine Detected (NotDetected); Cocaine Screen,Urine Not Detected (NotDetected); Methadone Screen, Urine Not Detected (NotDetected); Opiate Screen,Urine Not Detected (NotDetected); Oxycodone Screen, Urine Not Detected (NotDetected); Phencyclidine Screen,Urine Not Detected (NotDetected); Tricyclic Antidepressant,Urine Not Detected (NotDetected); Urn Cannabinoid Scrn Not Detected (NotDetected)
[2021-06-09] MEDS ORDERED: HALOPERIDOL LACTATE 5 MG/ML 1 ML VIAL IM PRN (12:30)
[2021-06-09] MEDS ORDERED: MAGNESIUM HYDROXIDE 2,400 MG/10 ML CUP PO PRN (12:30)
[2021-06-09] MEDS ORDERED: MAG HYDROX/AL HYDROX/SIMETH 30 ML CUP PO PRN (12:30)
[2021-06-09] MEDS ORDERED: ACETAMINOPHEN TAB 325 MG TAB PO PRN (12:30)
[2021-06-09] MEDS ORDERED: LORazepam 2 MG/ML INJ IM PRN (12:33)
[2021-06-09] MEDS ORDERED: LORazepam 2 MG/ML INJ IM STA (13:56)
[2021-06-09] MEDS: SERTRALINE 50 MG TAB PO SCH (14:58)
--- NOTE | 2021-06-09 21:30 | P.MDCNMH ---
History of Present Illness H&P Date: 06/09/21 Chief Complaint: Psychosis Patient is a 31-year-old male with a known history of severe anxiety, migraine headaches and chronic back pain and hypertension, ADD/ADHD, anxiety/depression and previous history of smoking was brought to the hospital due to court ordered psychiatric evaluation. Apparently patient has been aggressive and anxious. Currently patient is lying in the bed. Awake alert and oriented. No complaints of chest pain or shortness of breath. Denied any suicidal or homicidal ideation. No fever no chills. Any recent illnesses. No cough or sputum production. No nausea vomiting or abdominal pain or diarrhea. Laboratory data not available at this time. UDS is positive for benzodiazepines and amphetamines. Review of Systems Constitutional: Patient denies any fever or chills . No generalized weakness or weight loss. Abdomen: Patient denied nausea vomiting and diarrhea and abdominal pain. Cardiovascular: Patient denies any chest pain or short of breath no palpitations. Respiratory: patient denied any cough or sputum production. No shortness of breath Neurologic: Patient denied any numbness or tingling headache. Musculoskeletal: Patient denies any complaints of joint swelling or deformity. Skin: Negative Psychiatric: Negative Endocrine: No heat or cold intolerance. No recent weight gain. Genitourinary: No dysuria or hematuria. All other 14 point ROS negative except the above Past Medical History Past Medical History: Hypertension Additional Past Medical History / Comment(s): Severe anxiety, migraines, chronic back pain, difficulty with focusing attention. History of Any Multi-Drug Resistant Organisms: None Reported Past Surgical History: Orthopedic Surgery Additional Past Surgical History / Comment(s): Left wrist open reduction internal fixation, lipoma removed from right posterior shoulder. Past Anesthesia/Blood Transfusion Reactions: No Reported Reaction Past Psychological History: ADD/ADHD, Anxiety, Depression Smoking Status: Former smoker Past Alcohol Use History: Occasional Past Drug Use History: None Reported - Past Family History Father Family Medical History: Cancer, CVA/TIA, Myocardial Infarction ([place]) Additional Family Medical History / Comment(s): Father is alive at age 58. Patient states he has a rare cancer and undergoing chemotherapy. Mother Family Medical History: Coronary Artery Disease (CAD), Hypertension, Syncope Additional Family Medical History / Comment(s): Mother is alive at age 54 and also has history of anxiety and depression. Sister(s) History Unknown: Yes Family Medical History: No Reported History Medications and Allergies Home Medications Medication Instructions Recorded Confirmed Type ALPRAZolam [Xanax] 2 mg PO HS 06/08/21 06/08/21 History Dextroamphetamine/Amphetamine 30 mg PO BID 06/08/21 06/08/21 History [Adderall Xr] Sertraline [Zoloft] 50 mg PO DAILY 06/08/21 06/08/21 History Testosterone Cypionate 100 mg IM Q14D 06/08/21 06/08/21 History [Depo-Testosterone] clonazePAM [KlonoPIN] 2 mg PO BID PRN 06/08/21 06/08/21 History Allergies Allergy/AdvReac Type Severity Reaction Status Date / Time No Known Allergies Allergy Verified 06/08/21 23:03 Physical Exam Vitals: Vital Signs Temp Pulse Pulse Resp BP BP Pulse Ox 06/09/21 13:13 97.7 F 98 18 130/75 98 06/09/21 08:05 98.1 F 66 16 128/78 97 06/08/21 22:02 84 18 113/62 97 06/08/21 21:30 98.1 F 67 20 140/75 99 Intake and Output 06/09/21 06/09/21 06/09/21 06:59 14:59 22:59 Other: Weight 82.1 kg PHYSICAL EXAMINATION: Patient is lying in the bed comfortably, no acute distress, awake alert and oriented.. HEENT: Normocephalic. Neck is supple. Pupils reactive. Nostrils clear. Oral cavity is moist. Neck reveals no JVD, carotid bruits, or thyromegaly. CHEST EXAMINATION: Trachea is central. Symmetrical expansion. Lung sullivan clear to auscultation and percussion. CARDIAC: Normal S1, S2 with no gallops. No murmurs ABDOMEN: Soft. Bowel sounds normal. No organomegaly. No abdominal bruits. Extremities: reveal no edema. No clubbing or cyanosis Neurologically awake, alert, oriented x3 with well-coordinated movements. No focal deficits noted Skin: No rash or skin lesions. Psychiatric: Cooperative. Nonsuicidal Musculoskeletal: No joint swelling or deformity. Normal range of motion. Cranial Nerve Examination - Cranial Nerves Cranial Nerve I- Olfactory: Intact Cranial Nerve II- Optic: Intact Cranial Nerve III- Oculomotor: Intact Cranial Nerve IV- Trochlear: Intact Cranial Nerve V- Trigeminal: Intact Cranial Nerve - Abducens: Intact Cranial Nerve VII- Facial: Intact Cranial Nerve VIII- Auditory: Intact Cranial Nerve IX- Glossopharyngeal: Intact Cranial Nerve X- Vagus: Intact Cranial Nerve XI- Accessory: Intact Cranial Nerve XII- Hypoglossal: Intact Results Labs: Abnormal Lab Results - Last 24 Hours (Table) 06/09/21 Range/Units 10:09 Ur Amphetamines Screen Detected H (NotDetected) U Benzodiazepines Scrn Detected H (NotDetected) Assessment and Plan Assessment: Acute psychosis. Patient was brought to the hospital due to court ordered psychiatric evaluation. Ongoing nicotine addiction Anxiety/depression ADD/ADHD Chronic low back pain History of migraine headaches Hypertension currently not taking any medications DVT prophylaxis patient is ambulatory. Plan: Patient will be continued on current psychiatric management. Blood pressure is controlled. No antihypertensives recommended at this time. Follow-up CBC and BMP. Smoking cessation has been counseled. Further recommendations based on clinical course. Thank you for your consult.
[2021-06-10 07:50] LABS: Basophils # (A) 0.1 k/uL (0-0.2); Basophils % (A) 1 %; Eosinophils # (A) 0.3 k/uL (0-0.7); Eosinophils % (A) 4 %; HCT 52.1 % (39.0-53.0); HGB 17.2 gm/dL (13.0-17.5); Lymphocytes # (A) 1.9 k/uL (1.0-4.8); Lymphocytes % (A) 26 %; MCH 30.6 pg (25.0-35.0); MCHC 33.1 g/dL (31.0-37.0); MCV 92.5 fL (80.0-100.0); Mean Platelet Volume 7.9; Monocytes # (A) 0.4 k/uL (0-1.0); Monocytes % (A) 6 %; Neutrophils # (A) 4.5 k/uL (1.3-7.7); Neutrophils % (A) 63 %; Platelet Count 258 k/uL (150-450); RBC 5.64 m/uL (4.30-5.90); RDW 12.7 % (11.5-15.5); WBC 7.2 k/uL (3.8-10.6)
[2021-06-10 08:12] LABS: ALT 12 U/L (4-49); AST 18 U/L (17-59); African American GFR (CKD) >90 (>60 ml/min/1.73 sqM); Albumin 4.4 g/dL (3.5-5.0); Alkaline Phosphatase 61 U/L (38-126); Anion Gap 9 mmol/L; Blood Urea Nitrogen 15 mg/dL (9-20); Calcium 9.9 mg/dL (8.4-10.2); Carbon Dioxide 27 mmol/L (22-30); Chloride 104 mmol/L (98-107); Glucose 79 mg/dL (74-99); Non-African American GFR(CKD) 81 (>60 ml/min/1.73 sqM); Potassium 4.7 mmol/L (3.5-5.1); Sodium 140 mmol/L (137-145); Total Bilirubin 1.1 mg/dL (0.2-1.3); Total Protein 7.2 g/dL (6.3-8.2)
[2021-06-10] MEDS ORDERED: NICOTINE 14MG/24HR PATCH TRANSDERM SCH (09:00)
[2021-06-10] MEDS: SERTRALINE 50 MG TAB PO SCH (09:07)
[2021-06-10] MEDS: LORazepam 1 MG TAB PO PRN (09:09)
[2021-06-10] MEDS: haloperidoL 5 MG TAB PO PRN (09:11)
--- NOTE | 2021-06-10 12:05 | P.HP ---
Psychiatric H&P - . H&P Date: 06/10/21 History & Physical: Allergies Allergy/AdvReac Type Severity Reaction Status Date / Time No Known Allergies Allergy Verified 06/08/21 23:03 Vital Signs Temp 97.5 F L 06/10/21 11:16 Pulse 111 H 06/10/21 11:16 Resp 16 06/10/21 11:16 BP 107/60 06/10/21 11:16 Pulse Ox 97 06/10/21 11:16 Intake & Output 06/09/21 06/10/21 06/10/21 18:59 06:59 18:59 Weight 82.1 kg Laboratory Last Values WBC 7.2 k/uL (3.8-10.6) 06/10/21 07:23 RBC 5.64 m/uL (4.30-5.90) 06/10/21 07:23 Hgb 17.2 gm/dL (13.0-17.5) 06/10/21 07:23 Hct 52.1 % (39.0-53.0) 06/10/21 07:23 MCV 92.5 fL (80.0-100.0) 06/10/21 07:23 MCH 30.6 pg (25.0-35.0) 06/10/21 07:23 MCHC 33.1 g/dL (31.0-37.0) 06/10/21 07:23 RDW 12.7 % (11.5-15.5) 06/10/21 07:23 Plt Count 258 k/uL (150-450) 06/10/21 07:23 MPV 7.9 06/10/21 07:23 Neutrophils % 63 % 06/10/21 07:23 Lymphocytes % 26 % 06/10/21 07:23 Monocytes % 6 % 06/10/21 07:23 Eosinophils % 4 % 06/10/21 07:23 Basophils % 1 % 06/10/21 07:23 Neutrophils # 4.5 k/uL (1.3-7.7) 06/10/21 07:23 Lymphocytes # 1.9 k/uL (1.0-4.8) 06/10/21 07:23 Monocytes # 0.4 k/uL (0-1.0) 06/10/21 07:23 Eosinophils # 0.3 k/uL (0-0.7) 06/10/21 07:23 Basophils # 0.1 k/uL (0-0.2) 06/10/21 07:23 Sodium 140 mmol/L (137-145) 06/10/21 07:23 Potassium 4.7 mmol/L (3.5-5.1) 06/10/21 07:23 Chloride 104 mmol/L (98-107) 06/10/21 07:23 Carbon Dioxide 27 mmol/L (22-30) 06/10/21 07:23 Anion Gap 9 mmol/L 06/10/21 07:23 BUN 15 mg/dL (9-20) 06/10/21 07:23 Creatinine 1.18 mg/dL (0.66-1.25) 06/10/21 07:23 Est GFR (CKD-EPI)AfAm >90 (>60 ml/min/1.73 sqM) 06/10/21 07:23 Est GFR (CKD-EPI)NonAf 81 (>60 ml/min/1.73 sqM) 06/10/21 07:23 Glucose 79 mg/dL (74-99) 06/10/21 07:23 Calcium 9.9 mg/dL (8.4-10.2) 06/10/21 07:23 Total Bilirubin 1.1 mg/dL (0.2-1.3) 06/10/21 07:23 AST 18 U/L (17-59) 06/10/21 07:23 ALT 12 U/L (4-49) 06/10/21 07:23 Alkaline Phosphatase 61 U/L (38-126) 06/10/21 07:23 Total Protein 7.2 g/dL (6.3-8.2) 06/10/21 07:23 Albumin 4.4 g/dL (3.5-5.0) 06/10/21 07:23 Urine Opiates Screen Not Detected (NotDetected) 06/09/21 10:09 Ur Oxycodone Screen Not Detected (NotDetected) 06/09/21 10:09 Urine Methadone Screen Not Detected (NotDetected) 06/09/21 10:09 Ur Propoxyphene Screen Not Detected (NotDetected) 06/09/21 10:09 Ur Barbiturates Screen Not Detected (NotDetected) 06/09/21 10:09 U Tricyclic Antidepress Not Detected (NotDetected) 06/09/21 10:09 Ur Phencyclidine Scrn Not Detected (NotDetected) 06/09/21 10:09 Ur Amphetamines Screen Detected (NotDetected) H 06/09/21 10:09 U Methamphetamines Scrn Not Detected (NotDetected) 06/09/21 10:09 U Benzodiazepines Scrn Detected (NotDetected) H 06/09/21 10:09 Urine Cocaine Screen Not Detected (NotDetected) 06/09/21 10:09 U Marijuana (THC) Screen Not Detected (NotDetected) 06/09/21 10:09 Coronavirus (PCR) Not Detected (Not Detectd) 06/09/21 12:21 06/10/21 11:39 IDENTIFYING DATA: Patient is a 31-year-old male who currently has a guardian has been staying at a hotel as is HPI: Patient presented to the hospital yesterday on a pickup order for psychiatric evaluation. Patient had a urine drug screen which is positive for amphetamines and benzodiazepines. Patient is currently on a psychiatric order. He was last admitted to the mental health unit in December 2020 and diagnosed with psychosis. He was discharged at that time on Vistaril, Abilify, Zoloft and Benadryl. Patient has been following up in [place] with a psychiatrist and apparently now is on Adderall, Xanax and Klonopin along Zoloft. Patient was seen in his room today and was very guarded and evasive. He refused to leave his room. He was fairly irritable and hostile with literary writer. He claims that he got picked up by the [employer] and does not know why. He does not know who called them. She believes he does not need mental health treatment or to be in the hospital. Patient was paranoid and aggressive yesterday and apparently during the skin assessment by nurses patient became very defensive and agitated and required a Haldol and Ativan when necessary IM dose. Patient was covering his head in the blankets and refused to acknowledge her and speak with literary writer properly. He has poor insight and judgment. He claimed that he has been following up with a psychiatrist and only wants to go back on Klonopin and Ativan. He states that he last saw a psychiatrist 2 weeks ago. He is denying any depression at this time. He states that his sleep is "fine". Patient denies any suicidal or homicidal ideations intent or plan. At this time patient denies any auditory or visual hallucinations. Patient denies any flight of ideas racing thoughts and increased in goal directed behavior. Patient admits to using no recreational drugs. Denies any cigarette use or alcohol use PAST PSYCHIATRIC HISTORY: Patient states that [gives a history of psychosis, benzodiazepine abuse]. He was previously on various other medications including Abilify, Vistaril, Zoloft, Benadryl, Klonopin and Xanax. Patient was last psychiatrically hospitalized in December 2020. He states that he currently follows up with his psychiatrist in [place]. [Patient denies any history of suicide attempts in the past.] Past Medical History: Hypertension Additional Past Medical History / Comment(s): Severe anxiety, migraines, chronic back pain, difficulty with focusing attention. ALLERGIES: as per EMR CHEMICAL DEPENDENCY HISTORY: as per HPI FAMILY PSYCHIATRIC/SUBSTANCE USE HISTORY: [denies] SOCIAL HISTORY: Patient was born and raised in [place]. He states that he has some college. He claims that he has been to retirement and assisted numerous times. He claims that he was charged with OWI and larceny in the past. He does not have any kids. He is . He has a guardian. He currently resides in a hotel. MENTAL STATUS EXAM: General Appearance: Patient appears to be covering his body and face with blankets, stated age is alert, guarded/evasive. Patient appears to have [poor] hygiene and grooming. Behavior: Patient is seated without any agitated behavior. Guarded and evasive. Disinterested. Speech: Patient's speech is [fluent and nonpressured.] [place] Mood/Affect: Patient reports their mood is fine", affect is congruent and constricted. Suicidality/Homicidality: Patient denies having any homicidal ideation intent or plan. [Denies any suicidal ideations intent or plan] Perceptions: Patient denies any visual hallucinations [and denies any auditory hallucinations] Though content/process: [place], poverty of content and speech. Irritable and evasive. Memory and concentration: AOX3, grossly intact for the purposes of this session. Can spell "WORLD" backwards Judgment and insight: [poor] STRENGTHS/WEAKNESSES: strength is that patient is [resilient]. Weakness is that patient [has poor judgment and is impulsive] INTELLECT: [average] IMPRESSIONS: Psychosis unspecified Possible benzodiazepine abuse PLAN: -Patient is admitted under involuntary status to MHU for stabilization of psychiatric symptoms and safety. Patient is currently on an active treatment order. Patient has [not] signed [adult voluntary form and] [medication consent] and is placed in patient's chart. -Medications : Will start patient on Invega 3 mg qhs for psychosis/mood stabilization. If patient refuses PO invega then give IM zyprexa as he is on a court order. zoloft 50 mg daily continued. -Ativan [and Haldol] PRN for agitation/aggression [-Patient was counselled on substance abuse and desired to cut back on use] -Patient was informed of the risks, benefits and side effects of the medication and patient verbally consented to taking the medications. Patient signed med consent form and was placed in chart. -Internal Medicine consult to perform medical evaluation and physical. -NRT - not needed as patient does not smoke -SW on board for discharge planning. Encourage patient to participate in groups to work on coping skills. currently on a treatment order. 06/10/21 11:55 06/10/21 12:03
[2021-06-10] MEDS: OLANZapine 10 MG VIAL IM PRN (20:54)
[2021-06-10] MEDS: PALIPERIDONE 3 MG TAB.ER.24 PO SCH (21:12)
[2021-06-11] MEDS: LORazepam 1 MG TAB PO PRN (09:17)
[2021-06-11] MEDS: haloperidoL 5 MG TAB PO PRN (09:17)
[2021-06-11] MEDS: SERTRALINE 50 MG TAB PO SCH (09:17)
--- NOTE | 2021-06-11 13:28 | P.PN ---
Progress Note - Text Progress Note Date: 06/11/21 Interval History: Patient was seen in his room and was directable and agreeable to speak with insurance underwriter. Patient refused to come out of the bed and stated he is okay and there was nothing that I could do for him. He speaks in a low monotonous voice and appears quite guarded.. At this time patient denies any suicidal or homical ideations, intent or plan. Patient denies any auditory, visual hallucinations and denies any paranoia or delusions. Patient denies any side effects from the medications and has been compliant with meds. Mental Status Exam: General Appearance: Patient appears to be stated age is alert, directable, and cooperative. Behavior: Patient is calmly seated without any agitated behavior. Speech: Patient's speech is fluent and nonpressured. Mood/Affect: Mood is improving mildly, affect is congruent and constricted. Suicidality/Homicidality: Patient denies having any suicidal or homicidal ideation intent or plan. Perceptions: Patient denies any visual hallucinations and denies any auditory hallucinations Though content/process: There is no evidence of any delusional thought content and thought process is linear and goal-directed. Memory and concentration: AOX3, grossly intact for the purposes of this session Judgment and insight: Improving mildly Assessment Patient was brought to hospital on a pickup order and continues to show symptoms of psychosis necessitating hospitalization Plan: -Patient continues to meet criteria for inpatient psychiatric admission for symptom stabilization and safety. -Medications: Continue medication as before -When necessary Ativan and Haldol for agitation/aggression. -SW on board for discharge planning. Encouraged the patient to participate in milieu.
[2021-06-11] MEDS: PALIPERIDONE 3 MG TAB.ER.24 PO SCH (21:25)
[2021-06-11] MEDS ORDERED: WATER FOR INJECTION, STERILE 10 ML IV ONE (21:31)
[2021-06-11] MEDS: OLANZapine 10 MG VIAL IM PRN (22:16)
[2021-06-12] MEDS: SERTRALINE 50 MG TAB PO SCH (08:11)
[2021-06-12] MEDS: NICOTINE 21MG/24HR PATCH TRANSDERM SCH (08:46)
--- NOTE | 2021-06-12 12:58 | P.PN ---
Progress Note - Text Progress Note Date: 06/12/21 Interval History: Patient was seen in his room and was agreeable to speak with entry writer. He was last admitted to the mental health unit in December 2020 and diagnosed with psychosis. He continues to be quite guarded and evasive.. At this time patient denies any suicidal or homical ideations, intent or plan. Patient denies any auditory, visual hallucinations and denies any paranoia or delusions. Patient denies any side effects from the medications and has been compliant with meds. Mental Status Exam: General Appearance: Patient appears to be stated age is alert but not directable or cooperative. Behavior: Patient is calm without any agitated behavior. Speech: Patient's speech is non fluent and nonpressured. Mood/Affect: Mood is improving mildly, affect is congruent and constricted. Suicidality/Homicidality: Patient denies having any suicidal or homicidal ideation intent or plan. Perceptions: Patient denies any visual hallucinations and denies any auditory hallucinations Though content/process: There is no evidence of any delusional thought content and thought process is linear and goal-directed. Memory and concentration: AOX3, grossly intact for the purposes of this session Judgment and insight: Improving mildly Assessment Patient presented to the hospital on a pickup order for psychiatric evaluation. Patient was admitted to Hospital with a diagnosis of psychosis and other substance abuse. Plan: -Patient continues to meet criteria for inpatient psychiatric admission for symptom stabilization and safety. -Medications: Continue medication as before -When necessary Ativan and Haldol for agitation/aggression. -SW on board for discharge planning. Encouraged the patient to participate in milieu.
[2021-06-12] MEDS: PALIPERIDONE 3 MG TAB.ER.24 PO SCH ×2 (21:24→21:26)
[2021-06-12] MEDS: OLANZapine 10 MG VIAL IM PRN (21:44)
[2021-06-13] MEDS: LORazepam 1 MG TAB PO PRN (01:38)
[2021-06-13] MEDS: SERTRALINE 50 MG TAB PO SCH (08:49)
[2021-06-13] MEDS: NICOTINE 21MG/24HR PATCH TRANSDERM SCH (08:49)
[2021-06-13] MEDS ORDERED: flUPHENAZine 2.5 MG/ML (MDV) 10 ML VIAL IM PRN (12:01)
--- NOTE | 2021-06-13 13:25 | P.PN ---
Progress Note - Text Progress Note Date: 06/13/21 Interval History: Patient was seen today for psychiatric follow-up. Patient was laying in bed in his room and refused to get out of bed. He turned to acknowledge keno writer and then turned away once again. He continues to have very minimal insight in judgment. He states that he does not need "you're medications". He claims that the only medications he wants are "Klonopin and Ativan. He continues to demonstrate poor insight and judgment and also poor frustration tolerance and is irritable. He minimized his psychiatric symptoms and need for hospitalization. He states that he is sleeping "fine". At this time patient denies any suicidal or homical ideations, intent or plan. Patient denies any auditory, visual hallucinations and denies any paranoia or delusions. Patient denies any side effects from the medications and has been compliant with meds. Dismissive and argumentative with keno writer. Patient has been refusing his nightly invega however is taking zoloft Mental Status Exam: General Appearance: Patient appears to be covering his body and face with blankets, stated age is alert, guarded/evasive. Patient appears to have poor hygiene and grooming. Behavior: Patient is seated without any agitated behavior. Guarded and evasive. Disinterested. Irritable. Speech: Patient's speech is fluent and nonpressured. Lane Mood/Affect: Patient reports their mood is "fine", affect is incongruent and constricted. Suicidality/Homicidality: Patient denies having any homicidal ideation intent or plan. Denies any suicidal ideations intent or plan Perceptions: Patient denies any visual hallucinations and denies any auditory hallucinations Though content/process: [place], poverty of content and speech. Irritable and evasive. Minimizing his symptoms. Memory and concentration: AOX3, grossly intact for the purposes of this session. Can spell "WORLD" backwards Judgment and insight: poor IMPRESSIONS: Psychosis unspecified Benzodiazepine abuse Nicotine dependence Plan: -Patient continues to meet criteria for inpatient psychiatric admission for symptom stabilization and safety. Patient is on an active treatment order for mental health treatment. -Medications: As patient is not taking Invega po, will discontinue and switch with Prolixin, 2.5 mg daily at bedtime by mouth with IM as backup if patient refuses. Increase Zoloft to 100 mg a day for mood/anxiety. -When necessary Ativan and Haldol for agitation/aggression. -NRT - nicotine patch -SW on board for discharge planning. Encouraged the patient to participate in milieu.
[2021-06-13] MEDS: OLANZapine 10 MG VIAL IM PRN (21:33)
--- NOTE | 2021-06-14 11:30 | P.PN ---
Progress Note - Text Progress Note Date: 06/14/21 Interval History: Patient was seen today for psychiatric follow-up. Patient was laying in bed in his room and refused to get out of bed. He appears to have poor hygiene and grooming and foul odor. He continues to be dismissive and argumentative with medical underwriter about his medications. He claims that "I'm not taking any of your medications because I'm already prescribed stuff "my doctor". He continues to have very minimal insight in judgment. He states that he does not know where he wants to go when he is discharged. He is refusing rehab and continues to refuse by mouth medications. He appears to be very disinterested in his treatment. He states that he went to a group yesterday however was vague about what he learned or participated in. He states that he is sleeping "fine". At this time patient denies any suicidal or homical ideations, intent or plan. Patient denies any auditory, visual hallucinations and denies any paranoia or delusions. Mental Status Exam: General Appearance: Patient appears to be covering his body and face with blankets, stated age is alert, guarded/evasive. Patient appears to have poor hygiene and grooming. Behavior: Patient is seated without any agitated behavior. Guarded and evasive. Disinterested. Irritable. Speech: Patient's speech is fluent and nonpressured. [place] Mood/Affect: Patient reports their mood is "fine", affect is incongruent and constricted. Suicidality/Homicidality: Patient denies having any homicidal ideation intent or plan. Denies any suicidal ideations intent or plan Perceptions: Patient denies any visual hallucinations and denies any auditory hallucinations Though content/process: [place], poverty of content and speech. Irritable and evasive. Minimizing his symptoms. Memory and concentration: AOX3, grossly intact for the purposes of this session Judgment and insight: Chronically poor IMPRESSIONS: Psychosis unspecified Benzodiazepine abuse Nicotine dependence Plan: -Patient continues to meet criteria for inpatient psychiatric admission for symptom stabilization and safety. Patient is on an active treatment order for mental health treatment. -Medications: Continue with Prolixin, 2.5 mg daily at bedtime by mouth with IM as backup if patient refuses. Increase Zoloft to 100 mg a day for mood/anxiety. -When necessary Ativan and Haldol for agitation/aggression. -NRT - nicotine patch -SW on board for discharge planning. Encouraged the patient to participate in milieu. SW to speak with rose today to look into discharge planning. [place] court hearing tomorrow. Patient is refusing to go to rehab.
[2021-06-14] MEDS: NICOTINE 21MG/24HR PATCH TRANSDERM SCH (12:38)
[2021-06-14] MEDS: SERTRALINE 50 MG TAB PO SCH (12:40)
[2021-06-15] MEDS: NICOTINE 21MG/24HR PATCH TRANSDERM SCH (09:14)
[2021-06-15] MEDS: SERTRALINE 100 MG TAB PO SCH (09:14)
[2021-06-15] MEDS ORDERED: flUPHENAZine 2.5 MG/ML (MDV) 10 ML VIAL IM PRN (10:01)
--- NOTE | 2021-06-15 10:12 | P.PN ---
Progress Note - Text Progress Note Date: 06/15/21 Interval History: Patient was seen today for psychiatric follow-up. Patient was laying in bed in his room and refused to get out of bed. He appears to have poor hygiene and grooming and foul odor. He claims that he has not showered in 2 days. He continues to be fairly dismissive with lead technical writer and uncooperative. Continues to have very minimal insight and judgment. [place] in his thought process. He claims that he did take the Prolixin last night and claims that he feels "the same". Continues to have irritability. He states that he got up earlier for breakfast and shows very minimal interest in participating groups. Continues to refuse rehab. He appears to be very disinterested in his treatment. He states that he is sleeping "fine". He is denying any depression today. At this time patient denies any suicidal or homical ideations, intent or plan. Patient denies any auditory, visual hallucinations and denies any paranoia or delusions. Mental Status Exam: General Appearance: Patient appears to be covering his body and face with blankets, stated age is alert, guarded/evasive. Patient appears to have poor hygiene and grooming. Behavior: Patient is seated without any agitated behavior. Guarded and evasive. Disinterested. Irritable, improving mildly. Speech: Patient's speech is fluent and nonpressured. [place] Mood/Affect: Patient reports their mood is "the same", affect is incongruent and constricted. Suicidality/Homicidality: Patient denies having any homicidal ideation intent or plan. Denies any suicidal ideations intent or plan Perceptions: Patient denies any visual hallucinations and denies any auditory hallucinations Though content/process: [place], poverty of content and speech. Irritable and evasive. Minimizing his symptoms. Memory and concentration: AOX3, grossly intact for the purposes of this session Judgment and insight: Chronically poor IMPRESSIONS: Psychosis unspecified Benzodiazepine abuse Nicotine dependence Plan: -Patient continues to meet criteria for inpatient psychiatric admission for symptom stabilization and safety. Patient is on an active treatment order for mental health treatment. -Medications: Increased Prolixin, 4 mg daily at bedtime by mouth with IM as backup if patient refuses as patient is court ordered. Zoloft to 100 mg a day for mood/anxiety. -When necessary Ativan and Haldol for agitation/aggression. -NRT - nicotine patch -SW on board for discharge planning. Encouraged the patient to participate in milieu. SW to speak with rose today to look into discharge planning. [place] court hearing. Patient is refusing to go to rehab. likely discharge before the weekend if possible as patient is not engaging much in treatment
[2021-06-16] MEDS: NICOTINE 21MG/24HR PATCH TRANSDERM SCH ×2 (08:15→09:17)
[2021-06-16] MEDS: SERTRALINE 100 MG TAB PO SCH (08:15)
--- NOTE | 2021-06-16 10:41 | P.PN ---
Progress Note - Text Progress Note Date: 06/16/21 Interval History: Patient was seen today for psychiatric follow-up. Patient was laying in bed in his room and refused to get out of bed. He continues to be isolative in his room. He minimally engaged with board writer however did answer questions appropriately. It does seem to be some improvement in his irritability today. He states that he took the Prolixin by mouth last night. He is denying any side effects from this medication. He has very poor insight and judgment. He is denying any depression or anxiety today. He states that he got up earlier for breakfast and shows very minimal interest in participating groups. He states that he is sleeping "fine". At this time patient denies any suicidal or homical ideations, intent or plan. Patient denies any auditory, visual hallucinations and denies any paranoia or delusions. Mental Status Exam: General Appearance: Patient appears to be covering his body and face with blankets, stated age is alert, guarded/evasive. Patient appears to have poor hygiene and grooming. Behavior: Patient is seated without any agitated behavior. Disinterested. Less irritable today. Speech: Patient's speech is fluent and nonpressured. [place] Mood/Affect: Patient reports their mood is "alright", affect is incongruent and constricted. Suicidality/Homicidality: Patient denies having any homicidal ideation intent or plan. Denies any suicidal ideations intent or plan Perceptions: Patient denies any visual hallucinations and denies any auditory h allucinations Though content/process: [place], poverty of content and speech. Minimizing his symptoms. Memory and concentration: AOX3, grossly intact for the purposes of this session Judgment and insight: Chronically poor IMPRESSIONS: Psychosis unspecified Benzodiazepine abuse Nicotine dependence Plan: -Patient continues to meet criteria for inpatient psychiatric admission for symptom stabilization and safety. Patient is on an active treatment order for mental health treatment. -Medications: Prolixin 4 mg daily at bedtime by mouth with IM as backup if patient refuses as patient is court ordered. Patient to receive Prolixin D 25 mg IM tomorrow to ensure compliance. Zoloft to 100 mg a day for mood/anxiety. -When necessary Ativan and Haldol for agitation/aggression. -NRT - nicotine patch -SW on board for discharge planning. Encouraged the patient to participate in milieu. SW to continue working with guardian to arrange for patient's discharge tomorrow. Awaiting [place] [address] hearing. likely discharge tomorrow.
[2021-06-17] MEDS: SERTRALINE 100 MG TAB PO SCH (09:15)
[2021-06-17] MEDS: NICOTINE 21MG/24HR PATCH TRANSDERM SCH (09:15)
[2021-06-17 09:30] VITALS: BP 97/52; PULSE 51; RESP 12; TEMP 97.3
[2021-06-17] MEDS ORDERED: fluPHENAZine DECANOATE 25 MG/ML 5ML MDV IM ONE (10:00)
--- NOTE | 2021-06-17 11:46 | P.DS ---
Providers Date of admission: 06/09/21 12:27 Expected date of discharge: 06/17/21 Attending physician: Alejo Birmingham MD Consults: 06/09/21 12:30 Consult Physician Routine Consulting Provider: Can Maxwell Consult Reason/Comments: history and physical Do you want consulting provider notified?: Yes Primary care physician: Becky Cristobal - Discharge Diagnosis(es) (1) Unspecified psychosis Current Visit: Yes Status: Acute Priority: High (2) Benzodiazepine abuse Current Visit: Yes Status: Acute Priority: Medium (3) Nicotine dependence Current Visit: Yes Status: Acute Priority: Low Hospital Course: Admission HPI: Admission note was completed by principal technical writer "Patient is a 31-year-old male who currently has a guardian has been staying at a hotel as is . Patient presented to the hospital yesterday on a pickup order for psychiatric evaluation. Patient had a urine drug screen which is positive for amphetamines and benzodiazepines. Patient is currently on a psychiatric order. He was last admitted to the mental health unit in December 2020 and diagnosed with psychosis. He was discharged at that time on Vistaril, Abilify, Zoloft and Benadryl. Patient has been following up in [place] with a psychiatrist and apparently now is on Adderall, Xanax and Klonopin along Zoloft. Patient was seen in his room today and was very guarded and evasive. He refused to leave his room. He was fairly irritable and hostile with principal technical writer. He claims that he got picked up by the [employer] [employer] and does not know why. He does not know who called them. She believes he does not need mental health treatment or to be in the hospital. Patient was paranoid and aggressive yesterday and apparently during the skin assessment by nurses patient became very defensive and agitated and required a Haldol and Ativan when necessary IM dose. Patient was covering his head in the blankets and refused to acknowledge her and speak with principal technical writer properly. He has poor insight and judgment. He claimed that he has been following up with a psychiatrist and only wants to go back on Klonopin and Ativan. He states that he last saw a psychiatrist 2 weeks ago. He is denying any depression at this time. He states that his sleep is "fine". Patient denies any suicidal or homicidal ideations intent or plan. At this time patient denies any auditory or visual hallucinations. Patient denies any flight of ideas racing thoughts and increased in goal directed behavior. Patient admits to using no recreational drugs. Denies any cigarette use or alcohol use" Hospital course: Upon admission to the unit patient was admitted already on an active mental health treatment order. Patient got along well with other patients on the unit and followed unit protocol. Patient was compliant with the medications and denied any side effects throughout hospital course. Patient was started on prolixin PO for psychosis/mood stabilization. Given prolixin-D 25 mg IM. Continued on zoloft 100 mg daily for mood/anxiety. Patient mainly was disinterested in treatment and isolated for most of the time on the unit. Patient was also seen by medical team for history and physical exam. Throughout the course of the hospitalization patient gradually improved with regards to mood, anxiety, sleep and returned back to their baseline level of functioning. On the day of discharge patient denied any suicidal or homicidal ideations intent or plan denied any auditory or visual hallucinations. Patient endorsed wanting to live for his future. The patient denied any access to guns or weapons. Patient denied any paranoia and did not endorse any delusions. Patient does have a significant history of substance abuse and was counseled on abstaining from all substances including alcohol and marijuana. Patient was offered however declined inpatient substance-abuse rehab. Patient elected to do outpatient substance use treatment program through [facility]. Patient was also counseled on the medications and need for regular compliance and was encouraged to follow-up with their outpatient appointment for mental health and also for primary care. [Prior to discharge a family meeting was held with social professionals and principal technical writer along with patient's guardian/father over the phone. We discussed treatment, outpatient follow-up and patient's court order for mental health treatment. Guardian also asked about substance use order and will be having a court hearing today. Patient will be discharged to the court today for his hearing and will be staying at a hotel/motel vs staying with his father afterwards. Mental status exam: General Appearance: Patient appears to be stated age is alert, attempts to be cooperative. Patient is in no acute distress and has improved hygiene and grooming Behavior: Patient is calmly seated without any agitated behavior. Speech: Patient's speech is fluent and nonpressured. Mood/Affect: Patient reports their mood is "fine", affect is congruent and constricted Suicidality/Homicidality: Patient denies having any suicidal or homicidal ideation intent or plan. Perceptions: Patient denies any auditory or visual hallucinations. Though content/process: There is no evidence of any delusional thought content and thought process is linear and goal-directed. [place] Memory and concentration: AOX3, grossly intact for the purposes of this session. Can spell "WORLD" backwards correctly. Judgment and insight: chronically poor, however has improved with guarded pr ognosis Impression: Psychosis unspecified benzodiazepine abuse Nicotine dependence Plan: -Continue with discharge today as patient has improved and stabilized psychiatrically and is not currently an imminent threat to himself and/or others. Patient will remain at chronically elevated risk for harm to self and/or others due to his impulsivity and chronically poor insight and judgment. -Continue medications: Continue with Prolixin by mouth 4 mg for 4 more days at nighttime for mood stabilization/psychosis. Patient was given Prolixin D on 06/17/2021 and will be due for his next dose in 2 weeks. Will be given by [facility]. Continue with Zoloft 100 mg daily for mood/anxiety. -Patient was counseled on the need for medication compliance and appropriate follow-up at mental health and also primary care for medical issues. Patient verbalized understanding and agreed. -Social work to arrange for and conduct family meeting to ensure safety upon discharge and answer any questions/concerns. Patient will be discharged today to guardian's care and to the court for his [place] hearing. Social work also to arrange for patients follow up appointments with [facility] for psychiatric care along with follow up with primary care provider. -Patient counseled on abstaining from recreational drugs and marijuana and alcohol. Was informed/educated on the adverse effects on their physical and mental health. Patient verbally agreed and understood. Patient was offered substance abuse treatment however declined at this time. -Patient was instructed to return to the hospital or seek immediate medical care if their psychiatric or medical symptoms do worsen or reoccur. Allergies Allergy/AdvReac Type Severity Reaction Status Date / Time No Known Allergies Allergy Verified 06/08/21 23:03 Laboratory Results WBC 7.2 k/uL (3.8-10.6) 06/10/21 07:23 RBC 5.64 m/uL (4.30-5.90) 06/10/21 07:23 Hgb 17.2 gm/dL (13.0-17.5) 06/10/21 07:23 Hct 52.1 % (39.0-53.0) 06/10/21 07:23 MCV 92.5 fL (80.0-100.0) 06/10/21 07:23 MCH 30.6 pg (25.0-35.0) 06/10/21 07: MCHC 33.1 g/dL (31.0-37.0) 06/10/21 07:23 RDW 12.7 % (11.5-15.5) 06/10/21 07:23 Plt Count 258 k/uL (150-450) 06/10/21 07:23 MPV 7.9 06/10/21 07:23 Neutrophils % 63 % 06/10/21 07:23 Lymphocytes % 26 % 06/10/21 07:23 Monocytes % 6 % 06/10/21 07:23 Eosinophils % 4 % 06/10/21 07:23 Basophils % 1 % 06/10/21 07:23 Neutrophils # 4.5 k/uL (1.3-7.7) 06/10/21 07:23 Lymphocytes # 1.9 k/uL (1.0-4.8) 06/10/21 07:23 Monocytes # 0.4 k/uL (0-1.0) 06/10/21 07:23 Eosinophils # 0.3 k/uL (0-0.7) 06/10/21 07:23 Basophils # 0.1 k/uL (0-0.2) 06/10/21 07:23 Sodium 140 mmol/L (137-145) 06/10/21 07:23 Potassium 4.7 mmol/L (3.5-5.1) 06/10/21 07:23 Chloride 104 mmol/L (98-107) 06/10/21 07:23 Carbon Dioxide 27 mmol/L (22-30) 06/10/21 07:23 Anion Gap 9 mmol/L 06/10/21 07:23 BUN 15 mg/dL (9-20) 06/10/21 07:23 Creatinine 1.18 mg/dL (0.66-1.25) 06/10/21 07:23 Est GFR (CKD-EPI)AfAm >90 (>60 ml/min/1.73 sqM) 06/10/21 07:23 Est GFR (CKD-EPI)NonAf 81 (>60 ml/min/1.73 sqM) 06/10/21 07:23 Glucose 79 mg/dL (74-99) 06/10/21 07:23 Calcium 9.9 mg/dL (8.4-10.2) 06/10/21 07:23 Total Bilirubin 1.1 mg/dL (0.2-1.3) 06/10/21 07:23 AST 18 U/L (17-59) 06/10/21 07:23 ALT 12 U/L (4-49) 06/10/21 07:23 Alkaline Phosphatase 61 U/L (38-126) 06/10/21 07:23 Total Protein 7.2 g/dL (6.3-8.2) 06/10/21 07:23 Albumin 4.4 g/dL (3.5-5.0) 06/10/21 07:23 Urine Opiates Screen Not Detected (NotDetected) 06/09/21 10:09 Ur Oxycodone Screen Not Detected (NotDetected) 06/09/21 10:09 Urine Methadone Screen Not Detected (NotDetected) 06/09/21 10:09 Ur Propoxyphene Screen Not Detected (NotDetected) 06/09/21 10:09 Ur Barbiturates Screen Not Detected (NotDetected) 06/09/21 10:09 U Tricyclic Antidepress Not Detected (NotDetected) 06/09/21 10:09 Ur Phencyclidine Scrn Not Detected (NotDetected) 06/09/21 10:09 Ur Amphetamines Screen Detected (NotDetected) H 06/09/21 10:09 U Methamphetamines Scrn Not Detected (NotDetected) 06/09/21 10:09 U Benzodiazepines Scrn Detected (NotDetected) H 06/09/21 10:09 Urine Cocaine Screen Not Detected (NotDetected) 06/09/21 10:09 U Marijuana (THC) Screen Not Detected (NotDetected) 06/09/21 10:09 Coronavirus (PCR) Not Detected (Not Detectd) 06/09/21 12:21 Vital Signs Temp 97.3 F L 06/17/21 09:24 Pulse 51 L 06/17/21 09:24 Resp 12 06/17/21 09:24 BP 97/52 06/17/21 09:24 Pulse Ox 98 06/12/21 08:20 Patient Condition at Discharge: Stable Plan - Discharge Summary New Discharge Prescriptions: New fluPHENAZine [Prolixin] 4 mg PO HS 4 Days tab fluPHENAZine decanoate [Prolixin Decanoate] 0 mg IM [id number] #1 each Acetaminophen Tab [Tylenol] 650 mg PO Q4HR PRN tab PRN Reason: Pain/Discomfort Sertraline [Zoloft] 100 mg PO DAILY 30 Days tab Nicotine 21Mg/24Hr Patch [Habitrol] 1 patch TRANSDERM DAILY 14 Days patch Discontinued Testosterone Cypionate [Depo-Testosterone] 100 mg IM Q14D clonazePAM [KlonoPIN] 2 mg PO BID PRN PRN Reason: Anxiety Sertraline [Zoloft] 50 mg PO DAILY Dextroamphetamine/Amphetamine [Adderall Xr] 30 mg PO BID ALPRAZolam [Xanax] 2 mg PO HS Discharge Medication List Acetaminophen Tab [Tylenol] 650 mg PO Q4HR PRN tab 06/17/21 [Rx] Nicotine 21Mg/24Hr Patch [Habitrol] 1 patch TRANSDERM DAILY 14 Days patch 06/17/21 [Rx] Sertraline [Zoloft] 100 mg PO DAILY 30 Days tab 06/17/21 [Rx] fluPHENAZine [Prolixin] 4 mg PO HS 4 Days tab 06/17/21 [Rx] fluPHENAZine decanoate [Prolixin Decanoate] 0 mg IM [id number] #1 each 06/17/21 [Rx] Follow up Appointment(s)/Referral(s): [facility] [Outside] - 06/20/21 1:00 pm (06-20-21 @ 1:00 with Ronel Guillermo at [facility] office 06-23-21 @ 1:[address]ymour at [facility] office) Becky Cristobal MD [Primary Care Provider] - 1-2 days Activity/Diet/Wound Care/Special Instructions: Activity and diet as tolerated. Avoid the use of street drugs and alcohol. Take all medications as prescribed. When you are in need of refills on your medications please contact your medical provider and/or outpatient psychiatrist to have this done. Please go to scheduled outpatient appointment for aftercare treatment. If symptoms return or become worse, call the crisis line at and/or go to the nearest emergency room for evaluation Discharge Disposition: HOME SELF-CARE
== END 2021-06-17 14:40 | disposition home or self-care (01) | DRG 885 ==
LOC: EC 21:28 → 3MHU 06-09 12:27
PROVIDERS: ADMIT Psychiatry & Neurology Psychiatry; ATTEND Psychiatry & Neurology Psychiatry
DX: F23 Brief psychotic disorder (principal); F13.10 Sedative, hypnotic or anxiolytic abuse, uncomplicated; Z20.822 Contact with and (suspected) exposure to COVID-19; F41.9 Anxiety disorder, unspecified; F90.9 Attention-deficit hyperactivity disorder, unspecified type; F32.A Depression, unspecified; I10 Essential (primary) hypertension; G43.909 Migraine, unspecified, not intractable, without status migrainosus; G89.29 Other chronic pain; M54.50 Low back pain, unspecified; Z79.890 Hormone replacement therapy; Z79.899 Other long term (current) drug therapy; Z87.891 Personal history of nicotine dependence; Z87.81 Personal history of (healed) traumatic fracture; Z87.2 Personal history of diseases of the skin and subcutaneous tissue; Z98.890 Other specified postprocedural states; Z82.49 Family history of ischemic heart disease and other diseases of the circulatory system; Z71.6 Tobacco abuse counseling; Z71.41 Alcohol abuse counseling and surveillance of alcoholic; Z71.51 Drug abuse counseling and surveillance of drug abuser; Z82.3 Family history of stroke; Z80.9 Family history of malignant neoplasm, unspecified; Z81.8 Family history of other mental and behavioral disorders
CPT/HCPCS: 80053; 80306; 85025; 87635; 99285

== ENCOUNTER 2021-10-08 14:39 | Inpatient (IN) | payer MEDICAID, OTHER ==
--- NOTE | 2021-10-08 16:04 | ED ---
General Adult HPI - General Chief complaint: Psychiatric Symptoms Stated complaint: Mental Health- Law Enf.Petition Time Seen by Provider: 10/08/21 15:43 Source: patient, police, RN notes reviewed, old records reviewed Mode of arrival: ambulatory Limitations: no limitations - History of Present Illness Initial comments: Patient is a 31-year-old male with past medical history remarkable for prior psychiatric illness presents emergency Department after court-ordered pickup for psychiatric evaluation. Patient was petitioned by his public guardian which states "Babak has become physically aggressive, is responding to internal stimuli and is showing increasing paranoia." Patient states she has not been taking his medications. He denies any alcohol use but does endorse tobacco use. Endorses marijuana use. Denies any other drug use. Currently has no acute complaints. He is cooperative with staff. Presents for further evaluation at this time. Denies any suicidal, homicidal ideations, attempts, plans. Denies any visual or auditory hallucinations. - Related Data Previous Rx's Medication Instructions Recorded Acetaminophen Tab [Tylenol] 650 mg PO Q4HR PRN tab 06/17/21 Nicotine 21Mg/24Hr Patch [Habitrol] 1 patch TRANSDERM DAILY 14 Days 06/17/21 patch Sertraline [Zoloft] 100 mg PO DAILY 30 Days tab 06/17/21 fluPHENAZine [Prolixin] 4 mg PO HS 4 Days tab 06/17/21 fluPHENAZine decanoate [Prolixin 0 mg IM [id number] #1 each 06/17/21 Decanoate] Allergies Allergy/AdvReac Type Severity Reaction Status Date / Time No Known Allergies Allergy Verified 06/08/21 23:03 Review of Systems ROS Statement: Those systems with pertinent positive or pertinent negative responses have been documented in the HPI. Review of Systems: CONST: Denies fever EYES: Denies blurry vision ENT: Denies nasal congestion C/V: Denies Chest pain RESP: Denies shortness of breath GI: Denies abdominal pain : Denies dysuria SKIN: Denies rash. MSK: Denies joint pain. NEURO: Denies headache PSYCH: Denies suicidal and homicidal ideations/plans/attempts. Denies visual or auditory hallucinations. ROS Other: All systems not noted in ROS Statement are negative. Past Medical History Past Medical History: Hypertension Additional Past Medical History / Comment(s): Severe anxiety, migraines, chronic back pain, difficulty with focusing attention. History of Any Multi-Drug Resistant Organisms: None Reported Past Surgical History: Orthopedic Surgery Additional Past Surgical History / Comment(s): Left wrist open reduction internal fixation, lipoma removed from right posterior shoulder. Past Anesthesia/Blood Transfusion Reactions: No Reported Reaction Past Psychological History: ADD/ADHD, Anxiety, Depression Smoking Status: Former smoker Past Alcohol Use History: Occasional Past Drug Use History: None Reported - Past Family History Father Family Medical History: Cancer, CVA/TIA, Myocardial Infarction ([place]) Additional Family Medical History / Comment(s): Father is alive at age 58. Patient states he has a rare cancer and undergoing chemotherapy. Mother Family Medical History: Coronary Artery Disease (CAD), Hypertension, Syncope Additional Family Medical History / Comment(s): Mother is alive at age 54 and also has history of anxiety and depression. Sister(s) History Unknown: Yes Family Medical History: No Reported History General Exam - General Exam Comments Initial Comments: General: Appears slightly anxious. Otherwise in no acute distress. HEAD: Normal with no signs of head trauma. EYES: PERRLA, EOMI, conjunctiva normal, no discharge. Pupils are 3 mm equal bilaterally. ENT: Hearing grossly intact, normal oropharynx. RESPIRATORY: Clear breath sounds bilaterally. No wheezes, rales, or rhonchi. C/V: Regular rate and rhythm. S1 and S2 auscultated, no edema, peripheral pulses 2+ and intact throughout ABD: Abd is soft, nontender, nondistended EXT: Normal range of motion, no obvious deformity SKIN: No rashes or lesions observed on exposed skin. NEURO: Alert and oriented 4 Limitations: no limitations Course Vital Signs 10/08/21 15:07 Temperature 98.4 F Pulse Rate 115 H Respiratory 18 Rate Blood Pressure 131/95 O2 Sat by Pulse 98 Oximetry Medical Decision Making - Medical Decision Making Based on the patient's presentation and physical exam, I do believe he requires psychiatric evaluation. This is due to his petition as well. He was placed in green scrubs. Sitter was ordered. BAT is 0. UDS is ordered. At this time patient is medically cleared for evaluation by psychiatry. Disposition is pending psychiatric evaluation. Patient was evaluated by inpatient psychiatry. He meets inpatient criteria. Patient will be admitted to inpatient psychiatry in stable condition. Psych certification was completed by myself. Disposition Clinical Impression: Encounter for psychiatric assessment, Acute psychosis Disposition: TRANSFER TO PSYCH HOSP/UNIT Condition: Stable
[2021-10-08] MEDS ORDERED: fluPHENAZine DECANOATE 25 MG/ML 5ML MDV IM ONE (18:31)
[2021-10-08] MEDS ORDERED: MAG HYDROX/AL HYDROX/SIMETH 30 ML CUP PO PRN (19:59)
[2021-10-08] MEDS ORDERED: MAGNESIUM HYDROXIDE 2,400 MG/10 ML CUP PO PRN (19:59)
[2021-10-08] MEDS ORDERED: LORazepam 1 MG TAB PO PRN (19:59)
[2021-10-08] MEDS ORDERED: HALOPERIDOL LACTATE 5 MG/ML 1 ML VIAL IM PRN (19:59)
[2021-10-08] MEDS ORDERED: ACETAMINOPHEN TAB 325 MG TAB PO PRN (19:59)
[2021-10-08] MEDS ORDERED: LORazepam 2 MG/ML INJ IM PRN (20:12)
[2021-10-08] MEDS ORDERED: haloperidoL 5 MG TAB PO PRN (20:13)
[2021-10-09 08:09] LABS: Basophils # (A) 0.1 k/uL (0-0.2); Basophils % (A) 1 %; Eosinophils # (A) 0.2 k/uL (0-0.7); Eosinophils % (A) 2 %; HCT 51.7 % (39.0-53.0); HGB 16.6 gm/dL (13.0-17.5); Lymphocytes # (A) 2.1 k/uL (1.0-4.8); Lymphocytes % (A) 27 %; MCH 29.8 pg (25.0-35.0); MCHC 32.1 g/dL (31.0-37.0); MCV 92.8 fL (80.0-100.0); Mean Platelet Volume 8.2; Monocytes # (A) 0.5 k/uL (0-1.0); Monocytes % (A) 7 %; Neutrophils # (A) 4.8 k/uL (1.3-7.7); Neutrophils % (A) 61 %; Platelet Count 240 k/uL (150-450); RBC 5.57 m/uL (4.30-5.90); RDW 12.5 % (11.5-15.5); WBC 7.9 k/uL (3.8-10.6)
[2021-10-09 08:23] LABS: ALT 19 U/L (4-49); AST 23 U/L (17-59); African American GFR (CKD) >90 (>60 ml/min/1.73 sqM); Albumin 4.9 g/dL (3.5-5.0); Alkaline Phosphatase 60 U/L (38-126); Anion Gap 11 mmol/L; Blood Urea Nitrogen 21 mg/dL (9-20); Calcium 9.4 mg/dL (8.4-10.2); Carbon Dioxide 28 mmol/L (22-30); Chloride 102 mmol/L (98-107); Glucose 90 mg/dL (74-99); Non-African American GFR(CKD) 79 (>60 ml/min/1.73 sqM); Potassium 4.8 mmol/L (3.5-5.1); Sodium 141 mmol/L (137-145); Total Bilirubin 1.2 mg/dL (0.2-1.3); Total Protein 7.9 g/dL (6.3-8.2)
[2021-10-09] MEDS: NICOTINE 14MG/24HR PATCH TRANSDERM SCH (08:47)
[2021-10-09] MEDS: SERTRALINE 100 MG TAB PO SCH (08:47)
[2021-10-09 11:13] LABS: Chol/HDL Ratio 4.92 Ratio; LDL Cholesterol,Calculated 97.9 mg/dL (0.0-131.0)
--- NOTE | 2021-10-09 16:18 | P.HP ---
Psychiatric H&P - . H&P Date: 10/09/21 History & Physical: IDENTIFYING DATA: Patient is a 31 year old male , has a guardian. HPI: Patient presented to the hospital on 10/08/[address]-ordered for pick up man and was petitioned by his public guardian due to becoming physically aggressive, was responding to internal stimuli and showing increased paranoia. Guardian had reported he had not been taking his medications,become physically aggressive with his parents, that Babak's behavior has become so erratic that his parents have temporary left the home due to safety issues. Babak had also resumed care with the former doctor who is prescribing medications that [facility] pr eviously deemed an appropriate. On my assessment today, patient presents as guarded, restless, irritable and uncooperative with assessment. He is terse, states he is sleeping "enough". He was staying at a hotel for 2 days, went to his parent's house to check on his animals and waited outside his parents house, and then was petitioned by his guardian. He has poor insight into his mental health issues. He is not currently taking medications and states that he will only take the medications that he wants to take, but cannot specify which psychotropic medications these are. Patient denies any suicidal or homicidal ideations, intent or plan. At this time patient denies any auditory or visual hallucinations. He appears paranoid and becomes increasingly frustrated with the assessment. He abruptly leaves the room after about 5 minutes. PAST PSYCHIATRIC HISTORY: Patient is uncooperative with assessment today. Per assessment from 06/10/21: Patient states that [gives a history of psychosis, benzodiazepine abuse]. He was previously on various other medications including Abilify, Vistaril, Zoloft, Benadryl, Klonopin and Xanax. Patient was last psychiatrically hospitalized in December 2020. He states that he currently follows up with his psychiatrist in [place]. [Patient denies any history of suicide attempts in the past.] PMH: Severe anxiety, migraines, chronic back pain, difficulty with focusing attention. ALLERGIES: as per EMR CHEMICAL DEPENDENCY HISTORY: Patient is uncooperative with assessment today. Per records, he has a history of abusing methamphetamines and benzodiazepines. Smoker. FAMILY PSYCHIATRIC/SUBSTANCE USE HISTORY: None reported SOCIAL HISTORY: Patient is uncooperative with assessment today. Per records: Patient was born and raised in [facility]. He states that he has some college. He claims that he has been to care home and [facility] numerous times. He claims that he was charged with OWI and larceny in the past. He does not have any kids. He is . He has a guardian. He currently resides in a hotel. MENTAL STATUS EXAM: General Appearance: Patient appears to be stated age, has multiple tattoos. Behavior: Patient is restless, guarded, irritable and terse. Speech: Patient's speech is fluent and nonpressured. Mood/Affect: Mood is irritable, affect is congruent and constricted. Suicidality/Homicidality: Patient denies having any homicidal or suicidal ideations intent or plan. Perceptions: Patient denies any visual hallucinations or auditory hallucinations. Though content/process: He appears paranoid. Thought process is argumentative. Memory and concentration: Alert and oriented to person, place, time. Grossly intact for purposes of assessment. Judgment and insight: Very poor. STRENGTHS/WEAKNESSES: Patient is uncooperative with assessment today. INTELLECT: Average IMPRESSIONS: Unspecified psychotic disorder Sedative/hypnotic/anxiolytic use disorder (Benzodiazepines) Tobacco use disorder PLAN: -Patient is admitted under involuntary status to [facility] for stabilization of psychiatric symptoms and safety. A second certification was completed and along with petition will be filed for court. -Medications: Restart Prolixin decanoate 25 mg IM q2 weeks for psychosis (given last night 10/08/2021 in the ER). He was also restarted on oral Prolixin 4 mg QHS for psychosis but has refused this dose. -Ativan and Haldol PRN for agitation/aggression -Internal Medicine consult to perform medical evaluation and physical. -NRT - nicotine patch - on board for discharge planning. Encourage patient to participate in groups to work on coping skills. Will await deferral and court date. Allergies Allergy/AdvReac Type Severity Reaction Status Date / Time No Known Allergies Allergy Verified 06/08/21 23:03 Vital Signs Temp 97.6 F 10/09/21 08:47 Pulse 110 H 10/09/21 08:47 Resp 12 10/09/21 08:47 BP 129/84 10/09/21 08:47 Pulse Ox 98 10/09/21 08:47 FiO2 Intake & Output 10/08/21 10/09/21 10/09/21 18:59 06:59 18:59 Weight 88.451 kg 85.7 kg Laboratory Last Values WBC 7.9 k/uL (3.8-10.6) 10/09/21 07:13 RBC 5.57 m/uL (4.30-5.90) 10/09/21 07:13 Hgb 16.6 gm/dL (13.0-17.5) 10/09/21 07:13 Hct 51.7 % (39.0-53.0) 10/09/21 07:13 MCV 92.8 fL (80.0-100.0) 10/09/21 07:13 MCH 29.8 pg (25.0-35.0) 10/09/21 07:13 MCHC 32.1 g/dL (31.0-37.0) 10/09/21 07:13 RDW 12.5 % (11.5-15.5) 10/09/21 07:13 Plt Count 240 k/uL (150-450) 10/09/21 07:13 MPV 8.2 10/09/21 07:13 Neutrophils % 61 % 10/09/21 07:13 Lymphocytes % 27 % 10/09/21 07:13 Monocytes % 7 % 10/09/21 07:13 Eosinophils % 2 % 10/09/21 07:13 Basophils % 1 % 10/09/21 07:13 Neutrophils # 4.8 k/uL (1.3-7.7) 10/09/21 07:13 Lymphocytes # 2.1 k/uL (1.0-4.8) 10/09/21 07:13 Monocytes # 0.5 k/uL (0-1.0) 10/09/21 07:13 Eosinophils # 0.2 k/uL (0-0.7) 10/09/21 07:13 Basophils # 0.1 k/uL (0-0.2) 10/09/21 07:13 Sodium 141 mmol/L (137-145) 10/09/21 07:13 Potassium 4.8 mmol/L (3.5-5.1) 10/09/21 07:13 Chloride 102 mmol/L (98-107) 10/09/21 07:13 Carbon Dioxide 28 mmol/L (22-30) 10/09/21 07:13 Anion Gap 11 mmol/L 10/09/21 07:13 BUN 21 mg/dL (9-20) H 10/09/21 07:13 Creatinine 1.21 mg/dL (0.66-1.25) 10/09/21 07:13 Est GFR (CKD-EPI)AfAm >90 (>60 ml/min/1.73 sqM) 10/09/21 07:13 Est GFR (CKD-EPI)NonAf 79 (>60 ml/min/1.73 sqM) 10/09/21 07:13 Glucose 90 mg/dL (74-99) 10/09/21 07:[address] Glu mg/dL 100 10/09/21 07:13 Hemoglobin A1c 5.1 % (0.0-6.0) 10/09/21 07:13 Calcium 9.4 mg/dL (8.4-10.2) 10/09/21 07:13 Total Bilirubin 1.2 mg/dL (0.2-1.3) 10/09/21 07:13 AST 23 U/L (17-59) 10/09/21 07:13 ALT 19 U/L (4-49) 10/09/21 07:13 Alkaline Phosphatase 60 U/L (38-126) 10/09/21 07:13 Total Protein 7.9 g/dL (6.3-8.2) 10/09/21 07:13 Albumin 4.9 g/dL (3.5-5.0) 10/09/21 07:13 Triglycerides 104.00 mg/dL (0.00-149.00) 10/09/21 07:13 Cholesterol 149.00 mg/dL (0.00-200.00) 10/09/21 07:13 LDL Cholesterol, Calc 97.9 mg/dL (0.0-131.0) 10/09/21 07:13 VLDL Cholesterol, Calc 20.80 mg/dL (5.00-40.00) 10/09/21 07:13 HDL Cholesterol 30.30 mg/dL (40.00-60.00) L 10/09/21 07:13 Cholesterol/HDL Ratio 4.92 Ratio 10/09/21 07:13 TSH 0.843 mIU/L (0.465-4.680) 10/09/21 07:13 Coronavirus (PCR) Not Detected (Not Detectd) 10/08/21 18:06 10/09/21 15:31 10/09/21 15:31
--- NOTE | 2021-10-09 17:38 | P.CONS ---
History of Present Illness - Reason for Consult Consult date: 10/09/21 Medical management - Chief Complaint Psychiatric evaluation - History of Present Illness 31-year-old male with past medical history remarkable for prior psychiatric illness presents emergency Department after court-ordered pickup for psychiatric evaluation. Patient was petitioned by his public guardian which states "Babak has become physically aggressive, is responding to internal stimuli and is showing increasing paranoia." Patient states she has not been taking his medications. He denies any alcohol use but does endorse tobacco use. Endorses marijuana use. Denies any other drug use. Currently has no acute complaints. He is cooperative with staff. Presents for further evaluation at this time. Denies any suicidal, homicidal ideations, attempts, plans. Denies any visual or auditory hallucinations. Review of Systems REVIEW OF SYSTEMS: CONSTITUTIONAL: No fever, no malaise, no fatigue. HEENT: No recent visual problems or hearing problems. Denied any sore throat. CARDIOVASCULAR: No chest pain, orthopnea, PND, no palpitations, no syncope. PULMONARY: No shortness of breath, no cough, no hemoptysis. GASTROINTESTINAL: No diarrhea, no nausea, no vomiting, no abdominal pain. NEUROLOGICAL: No headaches, no weakness, no numbness. HEMATOLOGICAL: Denies any bleeding or petechiae. GENITOURINARY: Denies any burning micturition, frequency, or urgency. MUSCULOSKELETAL/RHEUMATOLOGICAL: Denies any joint pain, swelling, or any muscle pain. ENDOCRINE: Denies any polyuria or polydipsia. The rest of the 14-point review of systems is negative. Past Medical History Past Medical History: Hypertension Additional Past Medical History / Comment(s): Severe anxiety, migraines, chronic back pain, difficulty with focusing attention. History of Any Multi-Drug Resistant Organisms: None Reported Past Surgical History: Orthopedic Surgery Additional Past Surgical History / Comment(s): Left wrist open reduction internal fixation, lipoma removed from right posterior shoulder. Past Anesthesia/Blood Transfusion Reactions: No Reported Reaction Past Psychological History: ADD/ADHD, Anxiety, Depression Smoking Status: Former smoker Past Alcohol Use History: Occasional Past Drug Use History: None Reported - Past Family History Father Family Medical History: Cancer, CVA/TIA, Myocardial Infarction ([place]) Additional Family Medical History / Comment(s): Father is alive at age 58. Patient states he has a rare cancer and undergoing chemotherapy. Mother Family Medical History: Coronary Artery Disease (CAD), Hypertension, Syncope Additional Family Medical History / Comment(s): Mother is alive at age 54 and also has history of anxiety and depression. Sister(s) History Unknown: Yes Family Medical History: No Reported History Medications and Allergies Home Medications Medication Instructions Recorded Confirmed Type Acetaminophen Tab [Tylenol] 650 mg PO Q4HR PRN tab 06/17/21 Rx Nicotine 21Mg/24Hr Patch [Habitrol] 1 patch TRANSDERM DAILY 14 Days 06/17/21 Rx patch Sertraline [Zoloft] 100 mg PO DAILY 30 Days tab 06/17/21 Rx fluPHENAZine [Prolixin] 4 mg PO HS 4 Days tab 06/17/21 Rx fluPHENAZine decanoate [Prolixin 0 mg IM [id number] #1 each 06/17/21 Rx Decanoate] Allergies Allergy/AdvReac Type Severity Reaction Status Date / Time No Known Allergies Allergy Verified 06/08/21 23:03 Physical Exam Vitals: Vital Signs Temp Pulse Pulse Resp BP BP Pulse Ox 10/09/21 08:47 97.6 F 110 H 12 129/84 98 10/08/21 22:52 96.9 F L 84 18 126/86 96 10/08/21 15:07 98.4 F 115 H 18 131/95 98 Intake and Output 10/08/21 10/09/21 10/09/21 22:59 06:59 14:59 Other: Weight 88.451 kg 85.7 kg PHYSICAL EXAMINATION: GENERAL: The patient is alert and oriented x3, not in any acute distress. Well developed, well nourished. HEENT: Pupils are round and equally reacting to light. EOMI. No scleral icterus. No conjunctival pallor. Normocephalic, atraumatic. No pharyngeal erythema. No thyromegaly. CARDIOVASCULAR: S1 and S2 present. No murmurs, rubs, or gallops. PULMONARY: Chest is clear to auscultation, no wheezing or crackles. ABDOMEN: Soft, nontender, nondistended, normoactive bowel sounds. No palpable organomegaly. MUSCULOSKELETAL: No joint swelling or deformity. EXTREMITIES: No cyanosis, clubbing, or pedal edema. NEUROLOGICAL: Gross neurological examination did not reveal any focal deficits. SKIN: No rashes. Results CBC & Chem 7: 10/09/21 07:13 10/09/21 07:13 Labs: Abnormal Lab Results - Last 24 Hours (Table) 10/09/21 Range/Units 07:13 BUN 21 H (9-20) mg/dL HDL Cholesterol 30.30 L (40.00-60.00) mg/dL Assessment and Plan Assessment: 1. Unspecified psychotic disorder - Your management 2. Chronic back pain; we will continue to use Tylenol; can use Motrin if needed 3. Migraine headaches; we will plan to use Motrin when necessary for headache 4. Tobacco use; patient reports using nicotine patch DVT prophylaxis; ambulation CODE STATUS; full code
[2021-10-10] MEDS: NICOTINE 14MG/24HR PATCH TRANSDERM SCH (09:22)
[2021-10-10] MEDS: SERTRALINE 100 MG TAB PO SCH (09:22)
--- NOTE | 2021-10-10 10:59 | P.PN ---
Progress Note - Text Progress Note Date: 10/10/21 Interval History: Patient was seen resting in bed and was directable and agreeable to speak with song writer in his room. Currently, the patient is not reporting any suicidal or homicidal ideation, intention, and/or plan. He is not reporting any auditory or visual hallucinations. He denies any paranoia or other delusions. The patient vehemently denies a need for any medications. He refuses to elaborate on any further psychiatric history with this provider. He has been refusing his oral medications however did receive Prolixin Decanoate 25 mg IM on admission. He denies any issues regarding his sleep or his appetite. The patient has been petitioned and certified. Mental Status Exam: General Appearance: Patient appears to be stated age is alert, directable, and cooperative. Behavior: Patient is lying down in bed without any agitated behavior. Speech: Patient's speech is fluent and nonpressured. Mood/Affect: Mood is "ready to go," affect is irritable. Suicidality/Homicidality: Patient is currently denying any suicidal or homicidal ideation, intention, and/or plan. Perceptions: Patient denies any visual hallucinations and denies any auditory hallucinations Though content/process: There is no evidence of any delusional thought content and thought process is linear and goal-directed. Memory and concentration: AOX3, grossly intact for the purposes of this session Judgment and insight: Poor Vital Signs Temp 98.3 F 10/10/21 06:59 Pulse 98 10/10/21 06:59 Resp 12 10/09/21 08:47 BP 124/85 10/10/21 06:59 Pulse Ox 99 10/10/21 06:59 FiO2 Laboratory Results - Last 24 Hours 10/09/21 10/09/21 07:13 07:[address] Glu mg/dL 100 Hemoglobin A1c 5.1 Triglycerides 104.00 Cholesterol 149.00 LDL Cholesterol, Calc 97.9 VLDL Cholesterol, Calc 20.80 HDL Cholesterol 30.30 L Cholesterol/HDL Ratio 4.92 Assessment Unspecified psychotic disorder Sedative/hypnotic/anxiolytic use disorder (Benzodiazepines) Tobacco use disorder Plan: -Patient continues to meet criteria for inpatient psychiatric admission for symptom stabilization and safety. The patient has been petitioned and certified. -Medications: Continue Zoloft 100 mg by mouth daily Continue Prolixin 4 mg by mouth at bedtime Prolixin decanoate 25 mg IM was administered on 10/08/2021. -When necessary Ativan and Haldol for agitation/aggression. -NRT - nicotine patch -SW on board for discharge planning. Encouraged the patient to participate in milieu.
[2021-10-11] MEDS: NICOTINE 14MG/24HR PATCH TRANSDERM SCH (08:45)
[2021-10-11] MEDS: SERTRALINE 100 MG TAB PO SCH (08:46)
--- NOTE | 2021-10-11 11:17 | P.PN ---
Progress Note - Text Progress Note Date: 10/11/21 Interval History: Patient was seen resting in bed and was directable and agreeable to speak with automobile service writer in his room. Currently, the patient is not reporting any suicidal or homicidal ideation, intention, and/or plan. He remains primarily isolative to himself in his room. He is currently not reporting any auditory or visual hallucinations. He denies any paranoia or other delusions. The patient did receive his Prolixin decanoate 25 mg IM on admission to this psychiatric unit. He has been refusing any oral medications. He is currently under court order. [facility] will evaluate the patient at noon today. Mental Status Exam: General Appearance: Patient appears to be stated age is alert, directable, and cooperative. Behavior: Patient is lying down in bed without any agitated behavior. Speech: Patient's speech is fluent and nonpressured. Mood/Affect: Mood is "I'm okay," affect is nonchalant Suicidality/Homicidality: Patient is currently denying any suicidal or homicidal ideation, intention, and/or plan. Perceptions: Patient denies any visual hallucinations and denies any auditory hallucinations Though content/process: There is no evidence of any delusional thought content and thought process is linear and goal-directed. Memory and concentration: AOX3, grossly intact for the purposes of this session Judgment and insight: Poor Vital Signs Temp 98.3 F 10/10/21 06:59 Pulse 98 10/10/21 06:59 Resp 12 10/09/21 08:47 BP 124/85 10/10/21 06:59 Pulse Ox 99 10/10/21 06:59 FiO2 Assessment Unspecified psychotic disorder Sedative/hypnotic/anxiolytic use disorder (Benzodiazepines) Tobacco use disorder Plan: -Patient continues to meet criteria for inpatient psychiatric admission for symptom stabilization and safety. The patient has been petitioned and certified. -Medications: Continue Zoloft 100 mg by mouth daily Continue Prolixin 4 mg by mouth at bedtime Prolixin decanoate 25 mg IM was administered on 10/08/2021. -When necessary Ativan and Haldol for agitation/aggression. -NRT - nicotine patch -SW on board for discharge planning. Encouraged the patient to participate in milieu.
[2021-10-12 06:55] VITALS: RESP 16
[2021-10-12] MEDS: NICOTINE 14MG/24HR PATCH TRANSDERM SCH (08:40)
[2021-10-12] MEDS: SERTRALINE 100 MG TAB PO SCH (08:41)
--- NOTE | 2021-10-12 10:16 | P.PN ---
Progress Note - Text Progress Note Date: 10/12/21 Interval History: Patient was seen resting in bed and was directable and agreeable to speak with editorial writer in his room. The patient continues to deny any significant psychiatric pathology at this time. He is currently denying any suicidal or homicidal ideation, intention, and/or plan. He denies any auditory or visual hallucinations. He denies any paranoia or other delusions. The patient is primarily focused on discharge. The patient did receive Prolixin Decanoate however did not recall that he receive the medication. He vehemently denies any need for medications however states that if he defers, he will take the medication in order to get out of here. He denies any issues regarding his appetite or sleep. In regards to substance use, the patient vehemently denies any substance use. He refused drug screening on admission. Mental Status Exam: General Appearance: Patient appears to be stated age is alert, directable, and cooperative. He is guarded. Behavior: Patient is lying down in bed without any agitated behavior. Speech: Patient's speech is fluent and nonpressured. Mood/Affect: Mood is "I'm good to go," affect is nonchalant. Guarded. Suicidality/Homicidality: Patient is currently denying any suicidal or homicidal ideation, intention, and/or plan. Perceptions: Patient denies any visual hallucinations and denies any auditory hallucinations Though content/process: There is no evidence of any delusional thought content and thought process is linear and goal-directed. Memory and concentration: AOX3, grossly intact for the purposes of this session Judgment and insight: Poor Vital Signs Temp 97.5 F L 10/12/21 06:54 Pulse 70 10/12/21 06:54 Resp 16 10/12/21 06:54 BP 108/55 10/12/21 06:54 Pulse Ox 99 10/10/21 06:59 FiO2 Assessment Unspecified psychotic disorder Sedative/hypnotic/anxiolytic use disorder (Benzodiazepines) Tobacco use disorder Plan: -Patient continues to meet criteria for inpatient psychiatric admission for symptom stabilization and safety. The patient has been petitioned and certified. He is scheduled for deferral today. -Medications: Continue Zoloft 100 mg by mouth daily Continue Prolixin 4 mg by mouth at bedtime -Patient continues to refuse oral medications. Prolixin decanoate 25 mg IM was administered on 10/08/2021. -When necessary Ativan and Haldol for agitation/aggression. -NRT - nicotine patch -SW on board for discharge planning. Encouraged the patient to participate in milieu.
[2021-10-12 11:15] LABS: Appearance,Urine Clear (Clear); Bilirubin,Urine Negative (Negative); Blood,Urine Negative (Negative); Color,Urine Yellow; Glucose,Urine (UA) Negative (Negative); Ketones,Urine 1+ (Negative); Leukocyte Esterase,Urine Negative (Negative); Nitrite,Urine Negative (Negative); Protein,Urine Trace (Negative); Urobilinogen,Urine <2.0 mg/dL (<2.0)
[2021-10-12 22:18] LABS: Urine Alcohol Negative (Negative); Urine Barbiturate Negative (Negative); Urine Cocaine Negative (Negative); Urine Methadone Negative (Negative); Urine Opiates Negative (Negative); Urine Phencyclidine Negative (Negative)
[2021-10-13 07:03] VITALS: BP 109/57; PULSE 54; TEMP 97.2
[2021-10-13] MEDS: NICOTINE 14MG/24HR PATCH TRANSDERM SCH (08:48)
[2021-10-13] MEDS: SERTRALINE 100 MG TAB PO SCH (08:48)
--- NOTE | 2021-10-13 11:20 | P.DS ---
Providers Date of admission: 10/08/21 14:40 Expected date of discharge: 10/13/21 Attending physician: Chetan Valentino MD Consults: 10/08/21 19:59 Consult Physician Routine Consulting Provider: Can Maxwell Consult Reason/Comments: medical management Do you want consulting provider notified?: Yes Primary care physician: Becky Cristobal - Discharge Diagnosis(es) (1) Acute psychosis Current Visit: Yes Status: Acute Priority: High (2) Benzodiazepine abuse Current Visit: Yes Status: Chronic Priority: Medium (3) Tobacco use disorder Current Visit: Yes Status: Chronic Priority: Medium Hospital Course: Admission HPI: Patient is a 31 year old male , has a guardian. Patient presented to the hospital on 10/08/[address]-ordered for grape picker and was petitioned by his public guardian due to becoming physically aggressive, was responding to internal stimuli and showing increased paranoia. Guardian had reported he had not been taking his medications,become physically aggressive with his parents, that Babak's behavior has become so erratic that his parents have temporary left the home due to safety issues. Babak had also resumed care with the former doctor who is prescribing medications that [facility] previously deemed an appropriate. On my assessment today, patient presents as guarded, restless, irritable and uncooperative with assessment. He is terse, states he is sleeping "enough". He was staying at a hotel for 2 days, went to his parent's house to check on his animals and waited outside his parents house, and then was petitioned by his guardian. He has poor insight into his mental health issues. He is not currently taking medications and states that he will only take the medications that he wants to take, but cannot specify which psychotropic medications these are. Patient denies any suicidal or homicidal ideations, intent or plan. At this time patient denies any auditory or visual hallucinations. He appears paranoid and becomes increasingly frustrated with the assessment. He abruptly leaves the room after about 5 minutes. Patient is uncooperative with assessment today. Per assessment from 06/10/21: Patient states that gives a history of psychosis, benzodiazepine abuse. He was previously on various other medications including Abilify, Vistaril, Zoloft, Benadryl, Klonopin and Xanax. Patient was last psychiatrically hospitalized in December 2020. He states that he currently follows up with his psychiatrist in [place]. Patient denies any history of suicide attempts in the past. Hospital course: Upon admission to the unit patient was initially noted to be guarded, irritable, and terse. Patient did receive Prolixin Decanoate 25 mg IM in the emergency department on 10/08/2021 prior to his transfer on to the psychiatric unit. The patient was also started on Zoloft and oral Prolixin however refused medications throughout the hospitalization. Despite his refusal of the medication, the patient remained primarily isolative to himself in his room however was calm and cooperative with staff. He vehemently denied any psychiatric pathology during his hospital stay. His guardian presented the patient with a notice that it PPO was filed against him from his family. The patient also understood that he would not be able to return home. Over the course the hospitalization, the patient did not endorse any suicidal or homicidal ideation, intention, and/or plan. He reported future and goal orientation with plans to live in a hotel until he returns to work. The patient expresses no side effects of his medications. He will continue to refuse oral medications however acknowledges that by deferring the mental health court process, that he would have to show up to his appointments for Prolixin Decanoate and that his refusal to do so will result in psychiatric hospitalization. The patient is also receiving controlled medications from an outpatient psychiatrist in [place]. This has been confirmed over the [employer] system. This provider left the HIPAA compliant voicemail for this doctor in order to inform him to limit his prescribing practices. On the day of discharge, the patient is not reporting any suicidal or homicidal ideation, intention, and/or plan. He is not reporting any auditory or visual hallucinations. He denies any paranoia or other delusions. He denies any access to firearms or other weapons. Patient was counseled at length on the importance of medication adherence inappropriate outpatient follow-up. Prior to discharge, family meeting will be arranged by director social service to answer any questions and ensure safety. Over this hospitalization, the patient deferred mental health court. Mental status exam: General Appearance: Patient appears to be stated age is alert, abrupt but cooperative. Patient is in no acute distress and has fair hygiene and grooming Behavior: Patient is calmly seated without any agitated behavior. Speech: Patient's speech is fluent and nonpressured. Mood/Affect: Patient reports their mood is "doing fine", affect is congruent and nonchalant. Suicidality/Homicidality: Patient denies any suicidal or homicidal ideation, intention, pressure plan. Perceptions: Patient denies any auditory or visual hallucinations. Though content/process: There is no evidence of any delusional thought content and thought process is linear and goal-directed. more future oriented Memory and concentration: AOX3, grossly intact for the purposes of this session. Can spell "WORLD" backwards correctly. Judgment and insight: Improved with guarded prognosis Vital Signs Temp 97.2 F L 10/13/21 06:41 Pulse 54 L 10/13/21 06:41 Resp 16 10/13/21 06:41 BP 109/57 10/13/21 06:41 Pulse Ox 99 10/10/21 06:59 FiO2 Laboratory Results WBC 7.9 k/uL (3.8-10.6) 10/09/21 07:13 RBC 5.57 m/uL (4.30-5.90) 10/09/21 07:13 Hgb 16.6 gm/dL (13.0-17.5) 10/09/21 07:13 Hct 51.7 % (39.0-53.0) 10/09/21 07:13 MCV 92.8 fL (80.0-100.0) 10/09/21 07:13 MCH 29.8 pg (25.0-35.0) 10/09/21 07:13 MCHC 32.1 g/dL (31.0-37.0) 10/09/21 07:13 RDW 12.5 % (11.5-15.5) 10/09/21 07:13 Plt Count 240 k/uL (150-450) 10/09/21 07:13 MPV 8.2 10/09/21 07:13 Neutrophils % 61 % 10/09/21 07:13 Lymphocytes % 27 % 10/09/21 07:13 Monocytes % 7 % 10/09/21 07:13 Eosinophils % 2 % 10/09/21 07:13 Basophils % 1 % 10/09/21 07:13 Neutrophils # 4.8 k/uL (1.3-7.7) 10/09/21 07:13 Lymphocytes # 2.1 k/uL (1.0-4.8) 10/09/21 07:13 Monocytes # 0.5 k/uL (0-1.0) 10/09/21 07:13 Eosinophils # 0.2 k/uL (0-0.7) 10/09/21 07:13 Basophils # 0.1 k/uL (0-0.2) 10/09/21 07:13 Sodium 141 mmol/L (137-145) 10/09/21 07:13 Potassium 4.8 mmol/L (3.5-5.1) 10/09/21 07:13 Chloride 102 mmol/L (98-107) 10/09/21 07:13 Carbon Dioxide 28 mmol/L (22-30) 10/09/21 07:13 Anion Gap 11 mmol/L 10/09/21 07:13 BUN 21 mg/dL (9-20) H 10/09/21 07:13 Creatinine 1.21 mg/dL (0.66-1.25) 10/09/21 07:13 Est GFR (CKD-EPI)AfAm >90 (>60 ml/min/1.73 sqM) 10/09/21 07:13 Est GFR (CKD-EPI)NonAf 79 (>60 ml/min/1.73 sqM) 10/09/21 07:13 Glucose 90 mg/dL (74-99) 10/09/21 07:[address] Glu mg/dL 100 10/09/21 07:13 Hemoglobin A1c 5.1 % (0.0-6.0) 10/09/21 07:13 Calcium 9.4 mg/dL (8.4-10.2) 10/09/21 07:13 Total Bilirubin 1.2 mg/dL (0.2-1.3) 10/09/21 07:13 AST 23 U/L (17-59) 10/09/21 07:13 ALT 19 U/L (4-49) 10/09/21 07:13 Alkaline Phosphatase 60 U/L (38-126) 10/09/21 07:13 Total Protein 7.9 g/dL (6.3-8.2) 10/09/21 07:13 Albumin 4.9 g/dL (3.5-5.0) 10/09/21 07:13 Triglycerides 104.00 mg/dL (0.00-149.00) 10/09/21 07:13 Cholesterol 149.00 mg/dL (0.00-200.00) 10/09/21 07:13 LDL Cholesterol, Calc 97.9 mg/dL (0.0-131.0) 10/09/21 07:13 VLDL Cholesterol, Calc 20.80 mg/dL (5.00-40.00) 10/09/21 07:13 HDL Cholesterol 30.30 mg/dL (40.00-60.00) L 10/09/21 07:13 Cholesterol/HDL Ratio 4.92 Ratio 10/09/21 07:13 TSH 0.843 mIU/L (0.465-4.680) 10/09/21 07:13 Urine Color Yellow 10/12/21 11:05 Urine Appearance Clear (Clear) 10/12/21 11:05 Urine pH 6.0 (5.0-8.0) 10/12/21 11:05 Ur Specific [place] 1.030 (1.001-1.035) 10/12/21 11:05 Urine Protein Trace (Negative) H 10/12/21 11:05 Urine Glucose (UA) Negative (Negative) 10/12/21 11:05 Urine Ketones 1+ (Negative) H 10/12/21 11:05 Urine Blood Negative (Negative) 10/12/21 11:05 Urine Nitrite Negative (Negative) 10/12/21 11:05 Urine Bilirubin Negative (Negative) 10/12/21 11:05 Urine Urobilinogen <2.0 mg/dL (<2.0) 10/12/21 11:05 Ur Leukocyte Esterase Negative (Negative) 10/12/21 11:05 Urine Opiates Screen Negative (Negative) 10/12/21 11:05 Urine Methadone Screen Negative (Negative) 10/12/21 11:05 Ur Propoxyphene Screen Negative (Negative) 10/12/21 11:05 Urine Barbiturates Negative (Negative) 10/12/21 11:05 Ur Phencyclidine Scrn Negative (Negative) 10/12/21 11:05 Ur Amphetamine Screen Negative (Negative) 10/12/21 11:05 U Benzodiazepines Scrn Negative (Negative) 10/12/21 11:05 Urine Cocaine Screen Negative (Negative) 10/12/21 11:05 U Cannabinoids Screen Positive (Negative) A 10/12/21 11:05 Urine Alcohol Negative (Negative) 10/12/21 11:05 Coronavirus (PCR) Not Detected (Not Detectd) 10/08/21 18:06 Impression: Acute psychosis Benzodiazepine abuse Tobacco use disorder Plan: -Continue with discharge today as patient has improved and stabilized psychiatrically and is not currently an imminent threat to himself and/or others. Patient will remain at chronically elevated risk for harm to self and/or others due to his impulsivity and polysubstance abuse. -Continue medications: Prolixin decanoate 25 mg IM was administered on 10/08/2021 and dose due on. Habitrol patch for nicotine cessation -Patient was counseled on the need for medication compliance and appropriate follow-up at mental health and also primary care for medical issues. Patient verbalized understanding and agreed. -Social work to arrange for and conduct family meeting to ensure safety upon discharge and answer any questions/concerns. Social work also to arrange for patients follow up appointments with [facility] for psychiatric care along with follow up with primary care provider. -Patient counseled on abstaining from recreational drugs and marijuana and alcohol. Was informed/educated on the adverse effects on their physical and mental health. Patient verbally agreed and understood. Patient was offered substance abuse treatment however declined at this time. -Patient was instructed to return to the hospital or seek immediate medical care if their psychiatric or medical symptoms do worsen or reoccur. -Psychoeducation and supportive therapy provided to patient. Risks and benefits of pharmacological treatment versus the risks and benefits of nontreatment weight and discussed. Informed consent discussion held. Common side effects of psychotropics discussed such as, but not limited to headache, GI disturbance, sexual dysfunction, movement disorders, sedation, and orthostatic hypotension. Life threatening and blackbox warnings of prescribed medications also discussed. Potential risks of operating a vehicle or heavy machinery discussed with patient at length. Advised on importance of compliance and a reliable and responsible manner. Patient advised to review FDA consumer labeling of all medications prior to taking. Patient verbalized understanding of potential risks, and agrees with current treatment plan. Patient advised to medically contact physician/emergency personnel if any acute changes in condition occur. Allergies Allergy/AdvReac Type Severity Reaction Status Date / Time No Known Allergies Allergy Verified 06/08/21 23:03 Patient Condition at Discharge: Stable Plan - Discharge Summary Discharge Rx Participant: No New Discharge Prescriptions: New Nicotine 14Mg/24Hr Patch [Habitrol] 1 patch TRANSDERM DAILY 30 Days patch fluPHENAZine decanoate [Prolixin Decanoate] 25 mg IM [id number] #1 each Discontinued fluPHENAZine [Prolixin] 4 mg PO HS 4 Days tab fluPHENAZine decanoate [Prolixin Decanoate] 0 mg IM [id number] #1 each Acetaminophen Tab [Tylenol] 650 mg PO Q4HR PRN tab PRN Reason: Pain/Discomfort Sertraline [Zoloft] 100 mg PO DAILY 30 Days tab Nicotine 21Mg/24Hr Patch [Habitrol] 1 patch TRANSDERM DAILY 14 Days patch Discharge Medication List Nicotine 14Mg/24Hr Patch [Habitrol] 1 patch TRANSDERM DAILY 30 Days patch 10/13/21 [Rx] fluPHENAZine decanoate [Prolixin Decanoate] 25 mg IM [id number] #1 each 10/13/21 [Rx] Follow up Appointment(s)/Referral(s): [facility] [NON-STAFF] - 1 Week Patient Instructions/Handouts: How to Stop Smoking (DC), Psychotic Disorder (DC) Activity/Diet/Wound Care/Special Instructions: Activity and diet as tolerated. Avoid the use of street drugs and alcohol. Take all medications as prescribed. When you are in need of refills on your medic ations please contact your medical provider and/or outpatient psychiatrist to have this done. Please go to scheduled outpatient appointment for aftercare treatment. If symptoms return or become worse, call the crisis line at and/or go to the nearest emergency room for evaluation Discharge Disposition: HOME SELF-CARE
== END 2021-10-13 13:56 | disposition home or self-care (01) | DRG 885 ==
LOC: EEVIPCON 14:39 → EC 14:39 → 3MHU 14:40
PROVIDERS: ADMIT Psychiatry & Neurology Psychiatry; ATTEND Psychiatry & Neurology Psychiatry
DX: F23 Brief psychotic disorder (principal); F13.10 Sedative, hypnotic or anxiolytic abuse, uncomplicated; F17.200 Nicotine dependence, unspecified, uncomplicated; G43.909 Migraine, unspecified, not intractable, without status migrainosus; G89.29 Other chronic pain; I10 Essential (primary) hypertension; Z79.899 Other long term (current) drug therapy; Z91.14 Patient's other noncompliance with medication regimen; Z20.822 Contact with and (suspected) exposure to COVID-19
CPT/HCPCS: 80053; 80061; 80306; 81003; 82075; 83036; 84443; 85025; 87635; 96372; 99285

== ENCOUNTER 2021-10-24 17:52 | Emergency (ER) | payer OTHER ==
[2021-10-24 19:51] VITALS: TEMP 98.2
--- NOTE | 2021-10-24 20:15 | XR ---
EXAMINATION TYPE: XR wrist complete LT DATE OF EXAM: 10/24/2021 7:42 PM INDICATION: Patient age:Male; 31 years old; Reason for study: pain; COMPARISON: None TECHNIQUE: 3 views of the frontal lateral and oblique with navicular of the left wrist. FINDINGS: No acute osseous pathology, joint dislocation, or joint effusion. No evidence of any soft tissue swelling is seen. Remote appearing injury of the ulnar styloid process on the left. IMPRESSION: No acute osseous pathology.
[2021-10-24 20:18] LABS: Basophils # (A) 0.1 k/uL (0-0.2); Basophils % (A) 1 %; Eosinophils # (A) 0.3 k/uL (0-0.7); Eosinophils % (A) 3 %; HCT 44.2 % (39.0-53.0); HGB 14.3 gm/dL (13.0-17.5); Lymphocytes # (A) 2.1 k/uL (1.0-4.8); Lymphocytes % (A) 18 %; MCH 29.8 pg (25.0-35.0); MCHC 32.2 g/dL (31.0-37.0); MCV 92.4 fL (80.0-100.0); Mean Platelet Volume 7.8; Monocytes # (A) 0.7 k/uL (0-1.0); Monocytes % (A) 6 %; Neutrophils # (A) 8.2 k/uL (1.3-7.7); Neutrophils % (A) 71 %; Platelet Count 292 k/uL (150-450); RBC 4.79 m/uL (4.30-5.90); RDW 12.9 % (11.5-15.5); WBC 11.5 k/uL (3.8-10.6)
[2021-10-24 20:28] LABS: ALT 130 U/L (4-49); AST 34 U/L (17-59); African American GFR (CKD) >90 (>60 ml/min/1.73 sqM); Albumin 4.4 g/dL (3.5-5.0); Alkaline Phosphatase 62 U/L (38-126); Anion Gap 9 mmol/L; Blood Urea Nitrogen 21 mg/dL (9-20); Calcium 9.1 mg/dL (8.4-10.2); Carbon Dioxide 25 mmol/L (22-30); Chloride 102 mmol/L (98-107); Glucose 103 mg/dL (74-99); Non-African American GFR(CKD) >90 (>60 ml/min/1.73 sqM); Potassium 4.4 mmol/L (3.5-5.1); Sodium 136 mmol/L (137-145); Total Bilirubin 0.4 mg/dL (0.2-1.3); Total Protein 7.2 g/dL (6.3-8.2)
[2021-10-24 20:31] LABS: INR 0.9 (<1.2); Partial Thromboplastin Time 25.7 sec (22.0-30.0); Prothrombin Time 10.2 sec (9.0-12.0)
[2021-10-24] MEDS ORDERED: SODIUM CHLORIDE 0.9% 1,000 ML IV STA (22:27)
[2021-10-24] MEDS ORDERED: LORazepam 2 MG/ML INJ IV STA (22:27)
--- NOTE | 2021-10-24 23:26 | CT ---
EXAMINATION TYPE: CT angio chest DATE OF EXAM: 10/24/2021 COMPARISON: None HISTORY: multiple syncopal episodes. poss PE CT DLP: 491.2 mGycm Automated exposure control for dose reduction was used. CONTRAST: Performed with IV Contrast, patient injected with 80 mL of Isovue 370. Images obtained from the thoracic inlet to the diaphragm without IV contrast. There are Three-D postp rocessed images. The lungs are clear of infiltrate. No pleural effusion. Heart size is normal. No pericardial effusion . There is suboptimal contrast density in the pulmonary arteries. No evidence of central embolism. Smal ler branches are not well evaluated. No filling defect. The thoracic vertebra. Tach. No compression fracture. Sternum is intact. Upper abdominal soft tissues are intact IMPRESSION: Suboptimal exam. No evidence of central pulmonary embolism. Normal heart. Lungs are clear.
--- NOTE | 2021-10-24 23:33 | ED ---
General Adult HPI - General Chief complaint: Syncope Stated complaint: L wrist Injury Time Seen by Provider: 10/24/21 22:04 Source: patient Mode of arrival: ambulatory Limitations: no limitations - History of Present Illness Initial comments: Patient is a 31-year-old male presenting with chief complaint of syncope. Patient states that today he was syncopal episode while walking, states that he has had multiple syncopal episodes since January. Patient states that during this episode he injured his wrist, he states it is weak and painful particularly on the dorsal aspect. Patient has been instructed to follow up for syncopal episodes with neurology previously, however he has not done so yet. He denies any loss of bowel or bladder control during these episodes. Denies any chest pain, shortness of breath, palpitations, vision or hearing changes, nausea, vomiting, abdominal pain, hematemesis, hemoptysis, fever, chills. - Related Data Previous Rx's Medication Instructions Recorded Nicotine 14Mg/24Hr Patch [Habitrol] 1 patch TRANSDERM DAILY 30 Days 10/13/21 patch fluPHENAZine decanoate [Prolixin 25 mg IM [id number] #1 each 10/13/21 Decanoate] Allergies Allergy/AdvReac Type Severity Reaction Status Date / Time No Known Allergies Allergy Verified 06/08/21 23:03 Review of Systems ROS Statement: Those systems with pertinent positive or pertinent negative responses have been documented in the HPI. ROS Other: All systems not noted in ROS Statement are negative. Past Medical History Past Medical History: Hypertension Additional Past Medical History / Comment(s): Severe anxiety, migraines, chronic back pain, difficulty with focusing attention. History of Any Multi-Drug Resistant Organisms: None Reported Past Surgical History: Orthopedic Surgery Additional Past Surgical History / Comment(s): Left wrist open reduction internal fixation, lipoma removed from right posterior shoulder. Past Anesthesia/Blood Transfusion Reactions: No Reported Reaction Past Psychological History: ADD/ADHD, Anxiety, Depression Smoking Status: Former smoker Past Alcohol Use History: Occasional Past Drug Use History: None Reported - Past Family History Father Family Medical History: Cancer, CVA/TIA, Myocardial Infarction ([place]) Additional Family Medical History / Comment(s): Father is alive at age 58. Patient states he has a rare cancer and undergoing chemotherapy. Mother Family Medical History: Coronary Artery Disease (CAD), Hypertension, Syncope Additional Family Medical History / Comment(s): Mother is alive at age 54 and also has history of anxiety and depression. Sister(s) History Unknown: Yes Family Medical History: No Reported History General Exam Limitations: no limitations General appearance: alert, in no apparent distress Head exam: Present: atraumatic, normocephalic, normal inspection Eye exam: Present: normal appearance, EOMI. Absent: scleral icterus Neck exam: Present: normal inspection Respiratory exam: Present: normal lung sounds bilaterally. Absent: respiratory distress, wheezes, rales, rhonchi, stridor Cardiovascular Exam: Present: normal rhythm, tachycardia, normal heart sounds. Absent: systolic murmur, diastolic murmur, rubs, gallop, clicks Left Forearm Wrist exam: Present: normal inspection, full ROM, tenderness, tenderness over anatomical snuff box. Absent: swelling, abrasion Neurological exam: Present: alert, oriented X3, CN II-XII intact Psychiatric exam: Present: normal affect, normal mood Skin exam: Present: warm, dry, intact, normal color. Absent: rash Course Vital Signs 10/24/21 10/24/21 19:48 22:42 Temperature 98.2 F Pulse Rate 121 H 89 Respiratory 20 21 Rate Blood Pressure 112/72 116/74 O2 Sat by Pulse 97 98 Oximetry EKG Findings - EKG Comments: EKG Findings:: Sinus tachycardia with rate of 109. RI interval 149. The QRS duration 93. There is some RI depression in lead 2. No ischemic changes. Medical Decision Making - Medical Decision Making Patient is a 31-year-old male presenting with chief complaint of syncope. Patient states that earlier today he had a syncopal episode while walking, he states that during this episode he injured his left wrist. On examination there is some snuffbox tenderness of the left wrist. There are no focal neurological deficits. Patient is tachycardic, otherwise heart and lungs are clear to auscultation. Lab work is grossly unremarkable. Wrist x-ray shows no evidence of fracture. CTA of the chest shows no evidence of pulmonary embolism. On reevaluation patient is resting comfortably. Patient currently has a thumb spica splint from home, instructed him to continue wearing this until cleared by orthopedics. Follow-up with orthopedics, neurology, and her PCP. Report back to ER if any new or worsening symptoms. I educated him on return parameters. Answered all questions. Patient conveyed verbal understanding and agreed to the plan. I discussed this case with my attending Dr. Young. - Lab Data Result diagrams: 10/24/21 19:52 10/24/21 19:52 Lab Results 10/24/21 10/24/21 10/24/21 Range/Units 19:52 19:52 19:52 WBC 11.5 H (3.8-10.6) k/uL RBC 4.79 (4.30-5.90) m/uL Hgb 14.3 (13.0-17.5) gm/dL Hct 44.2 (39.0-53.0) % MCV 92.4 (80.0-100.0) fL MCH 29.8 (25.0-35.0) pg MCHC 32.2 (31.0-37.0) g/dL RDW 12.9 (11.5-15.5) % Plt Count 292 (150-450) k/uL MPV 7.8 Neutrophils % 71 % Lymphocytes % 18 % Monocytes % 6 % Eosinophils % 3 % Basophils % 1 % Neutrophils # 8.2 H (1.3-7.7) k/uL Lymphocytes # 2.1 (1.0-4.8) k/uL Monocytes # 0.7 (0-1.0) k/uL Eosinophils # 0.3 (0-0.7) k/uL Basophils # 0.1 (0-0.2) k/uL PT 10.2 (9.0-12.0) sec INR 0.9 (<1.2) APTT 25.7 (22.0-30.0) sec Sodium 136 L (137-145) mmol/L Potassium 4.4 (3.5-5.1) mmol/L Chloride 102 (98-107) mmol/L Carbon Dioxide 25 (22-30) mmol/L Anion Gap 9 mmol/L BUN 21 H (9-20) mg/dL Creatinine 0.91 (0.66-1.25) mg/dL Est GFR (CKD-EPI)AfAm >90 (>60 ml/min/1.73 sqM) Est GFR (CKD-EPI)NonAf >90 (>60 ml/min/1.73 sqM) Glucose 103 H (74-99) mg/dL Calcium 9.1 (8.4-10.2) mg/dL Total Bilirubin 0.4 (0.2-1.3) mg/dL AST 34 (17-59) U/L ALT 130 H (4-49) U/L Alkaline Phosphatase 62 (38-126) U/L Troponin I (0.000-0.034) ng/mL Total Protein 7.2 (6.3-8.2) g/dL Albumin 4.4 (3.5-5.0) g/dL 10/24/21 Range/Units 19:52 WBC (3.8-10.6) k/uL RBC (4.30-5.90) m/uL Hgb (13.0-17.5) gm/dL Hct (39.0-53.0) % MCV (80.0-100.0) fL MCH (25.0-35.0) pg MCHC (31.0-37.0) g/dL RDW (11.5-15.5) % Plt Count (150-450) k/uL MPV Neutrophils % % Lymphocytes % % Monocytes % % Eosinophils % % Basophils % % Neutrophils # (1.3-7.7) k/uL Lymphocytes # (1.0-4.8) k/uL Monocytes # (0-1.0) k/uL Eosinophils # (0-0.7) k/uL Basophils # (0-0.2) k/uL PT (9.0-12.0) sec INR (<1.2) APTT (22.0-30.0) sec Sodium (137-145) mmol/L Potassium (3.5-5.1) mmol/L Chloride (98-107) mmol/L Carbon Dioxide (22-30) mmol/L Anion Gap mmol/L BUN (9-20) mg/dL Creatinine (0.66-1.25) mg/dL Est GFR (CKD-EPI)AfAm (>60 ml/min/1.73 sqM) Est GFR (CKD-EPI)NonAf (>60 ml/min/1.73 sqM) Glucose (74-99) mg/dL Calcium (8.4-10.2) mg/dL Total Bilirubin (0.2-1.3) mg/dL AST (17-59) U/L ALT (4-49) U/L Alkaline Phosphatase (38-126) U/L Troponin I <0.012 (0.000-0.034) ng/mL Total Protein (6.3-8.2) g/dL Albumin (3.5-5.0) g/dL Disposition Clinical Impression: Syncope Disposition: HOME SELF-CARE Condition: Good Instructions (If sedation given, give patient instructions): Syncope (ED) Additional Instructions: Follow-up with PCP, neurology, orthopedics. Report back to ER if any new or worsening symptoms. Continue to wear brace until cleared by orthopedics. Is patient prescribed a controlled substance at d/c from ED?: No Referrals: Becky Cristobal MD [Primary Care Provider] - 1-2 days George Watt PAC [PHYSICIAN REBAR FABRICATOR] - 1-2 days Prerna Thompson MD [STAFF PHYSICIAN] - 1-2 days Time of Disposition: 23:33
[2021-10-25 00:01] VITALS: BP 121/77; PULSE 93; RESP 13
== END 2021-10-25 00:01 | disposition home or self-care (01) ==
LOC: EC 17:52
DX: R55 Syncope and collapse (principal); I10 Essential (primary) hypertension; Z87.891 Personal history of nicotine dependence; Z82.49 Family history of ischemic heart disease and other diseases of the circulatory system
CPT/HCPCS: 93005; 80053; 84484; 85025; 85610; 85730; 73110; 71275; 99285; 96374; 96361; J2060; Q9967; 36415

== ENCOUNTER 2021-11-16 16:02 | Inpatient (IN) | payer MEDICAID, OTHER ==
--- NOTE | 2021-11-16 16:31 | ED ---
General Adult HPI - General Chief complaint: Psychiatric Symptoms Stated complaint: Mental Health Time Seen by Provider: 11/16/21 16:06 Source: patient, EMS, RN notes reviewed Mode of arrival: EMS Limitations: no limitations - History of Present Illness Initial comments: Patient is a pleasant 29-year-old male presenting to the emergency department for mental health evaluation. Patient complains of auditory and visual hallucinations. Patient has chronic auditory hallucinations, mostly over the past few months. Patient is having visual hallucinations today and scribed as being loss and not knowing where he has. Patient states at times he wonders if he is really lie. Patient does have suicidal thoughts and was planning on jumping in the river. Patient's auditory hallucinations as described as hearing his own voice. Patient amiss to having racing thoughts. Patient is only on Prolixin. Patient recently was discharged from [place], 3 weeks ago to get off benzodiazepines. - Related Data Previous Rx's Medication Instructions Recorded Nicotine 14Mg/24Hr Patch [Habitrol] 1 patch TRANSDERM DAILY 30 Days 10/13/21 patch fluPHENAZine decanoate [Prolixin 25 mg IM [id number] #1 each 10/13/21 Decanoate] Allergies Allergy/AdvReac Type Severity Reaction Status Date / Time No Known Allergies Allergy Verified 06/08/21 23:03 Review of Systems ROS Statement: Those systems with pertinent positive or pertinent negative responses have been documented in the HPI. ROS Other: All systems not noted in ROS Statement are negative. Constitutional: Denies: fever Eyes: Denies: eye pain ENT: Denies: ear pain Respiratory: Denies: cough Cardiovascular: Denies: chest pain Endocrine: Denies: fatigue Gastrointestinal: Denies: abdominal pain Genitourinary: Denies: dysuria Musculoskeletal: Denies: back pain Skin: Denies: rash Neurological: Denies: headache, weakness Psychiatric: Reports: anxiety, depression, auditory hallucinations, visual hallucinations, suicidal thoughts Past Medical History Past Medical History: Hypertension Additional Past Medical History / Comment(s): Severe anxiety, migraines, chronic back pain, difficulty with focusing attention. History of Any Multi-Drug Resistant Organisms: None Reported Past Surgical History: Orthopedic Surgery Additional Past Surgical History / Comment(s): Left wrist open reduction internal fixation, lipoma removed from right posterior shoulder. Past Anesthesia/Blood Transfusion Reactions: No Reported Reaction Past Psychological History: ADD/ADHD, Anxiety, Depression Smoking Status: Former smoker Past Alcohol Use History: Occasional Past Drug Use History: None Reported - Past Family History Father Family Medical History: Cancer, CVA/TIA, Myocardial Infarction ([place]) Additional Family Medical History / Comment(s): Father is alive at age 58. Patient states he has a rare cancer and undergoing chemotherapy. Mother Family Medical History: Coronary Artery Disease (CAD), Hypertension, Syncope Additional Family Medical History / Comment(s): Mother is alive at age 54 and also has history of anxiety and depression. Sister(s) History Unknown: Yes Family Medical History: No Reported History General Exam Limitations: no limitations General appearance: alert, in no apparent distress Head exam: Present: normocephalic Eye exam: Present: normal appearance Neck exam: Present: normal inspection Respiratory exam: Present: normal lung sounds bilaterally Cardiovascular Exam: Present: regular rate, normal rhythm GI/Abdominal exam: Present: soft. Absent: tenderness Extremities exam: Present: normal inspection Neurological exam: Present: alert Psychiatric exam: Present: normal affect, normal mood Skin exam: Absent: abrasion Course Vital Signs 11/16/21 16:07 Temperature 98.6 F Pulse Rate 71 Respiratory 18 Rate Blood Pressure 146/91 O2 Sat by Pulse 98 Oximetry Medical Decision Making - Medical Decision Making Patient seen by mental health services with plans of admission - Lab Data Lab Results 11/16/21 Range/Units 16:19 Urine Opiates Screen Not Detected (NotDetected) Ur Oxycodone Screen Not Detected (NotDetected) Urine Methadone Screen Not Detected (NotDetected) Ur Propoxyphene Screen Not Detected (NotDetected) Ur Barbiturates Screen Not Detected (NotDetected) U Tricyclic Antidepress Not Detected (NotDetected) Ur Phencyclidine Scrn Not Detected (NotDetected) Ur Amphetamines Screen Not Detected (NotDetected) U Methamphetamines Scrn Not Detected (NotDetected) U Benzodiazepines Scrn Not Detected (NotDetected) Urine Cocaine Screen Not Detected (NotDetected) U Marijuana (THC) Screen Not Detected (NotDetected) Disposition Clinical Impression: Acute psychosis Disposition: TRANSFER TO PSYCH HOSP/UNIT Is patient prescribed a controlled substance at d/c from ED?: No Referrals: Becky Cristobal MD [Primary Care Provider] - 1-2 days Time of Disposition: 17:09
[2021-11-16 16:40] LABS: Amphetamine Screen,Urine Not Detected (NotDetected); Barbiturate Screen,Urine Not Detected (NotDetected); Benzodiazepines Screen,Urine Not Detected (NotDetected); Cocaine Screen,Urine Not Detected (NotDetected); Methadone Screen, Urine Not Detected (NotDetected); Opiate Screen,Urine Not Detected (NotDetected); Oxycodone Screen, Urine Not Detected (NotDetected); Phencyclidine Screen,Urine Not Detected (NotDetected); Tricyclic Antidepressant,Urine Not Detected (NotDetected); Urn Cannabinoid Scrn Not Detected (NotDetected)
[2021-11-16] MEDS: hydrOXYzine pamoate 25 MG CAP PO PRN (17:14)
[2021-11-16] MEDS ORDERED: haloperidoL 5 MG TAB PO PRN (20:40)
[2021-11-16] MEDS ORDERED: hydrOXYzine HCL 50 MG/ML 1 ML VIAL IM PRN (20:40)
[2021-11-16] MEDS ORDERED: ACETAMINOPHEN TAB 325 MG TAB PO PRN (20:40)
[2021-11-16] MEDS ORDERED: MAGNESIUM HYDROXIDE 2,400 MG/10 ML CUP PO PRN (20:40)
[2021-11-16] MEDS ORDERED: hydrOXYzine pamoate 25 MG CAP PO PRN (20:40)
[2021-11-16] MEDS ORDERED: MAG HYDROX/AL HYDROX/SIMETH 30 ML CUP PO PRN (20:40)
[2021-11-16] MEDS ORDERED: HALOPERIDOL LACTATE 5 MG/ML 1 ML VIAL IM PRN (20:40)
[2021-11-17 08:03] LABS: Basophils # (A) 0.1 k/uL (0-0.2); Basophils % (A) 1 %; Eosinophils # (A) 0.2 k/uL (0-0.7); Eosinophils % (A) 3 %; HCT 46.4 % (39.0-53.0); HGB 15.9 gm/dL (13.0-17.5); Lymphocytes # (A) 1.9 k/uL (1.0-4.8); Lymphocytes % (A) 28 %; MCH 31.1 pg (25.0-35.0); MCHC 34.2 g/dL (31.0-37.0); MCV 90.9 fL (80.0-100.0); Mean Platelet Volume 7.9; Monocytes # (A) 0.4 k/uL (0-1.0); Monocytes % (A) 6 %; Neutrophils # (A) 4.1 k/uL (1.3-7.7); Neutrophils % (A) 61 %; Platelet Count 261 k/uL (150-450); RDW 13.1 % (11.5-15.5); WBC 6.8 k/uL (3.8-10.6)
[2021-11-17] MEDS: NICOTINE 14MG/24HR PATCH TRANSDERM SCH (08:08)
[2021-11-17 08:22] LABS: ALT 15 U/L (4-49); AST 18 U/L (17-59); African American GFR (CKD) >90 (>60 ml/min/1.73 sqM); Albumin 4.8 g/dL (3.5-5.0); Alkaline Phosphatase 56 U/L (38-126); Anion Gap 13 mmol/L; Bilirubin, Delta 0.1 mg/dL (0.0-0.2); Bilirubin,Unconjugated 0.7 mg/dL (0.0-1.1); Blood Urea Nitrogen 16 mg/dL (9-20); Calcium 9.5 mg/dL (8.4-10.2); Carbon Dioxide 24 mmol/L (22-30); Chloride 105 mmol/L (98-107); Glucose 99 mg/dL (74-99); Non-African American GFR(CKD) >90 (>60 ml/min/1.73 sqM); Potassium 4.5 mmol/L (3.5-5.1); Sodium 142 mmol/L (137-145); Total Bilirubin 0.8 mg/dL (0.2-1.3); Total Protein 7.5 g/dL (6.3-8.2)
[2021-11-17 09:13] LABS: Appearance,Urine Clear (Clear); Bilirubin,Urine Negative (Negative); Blood,Urine Negative (Negative); Color,Urine Yellow; Glucose,Urine (UA) Negative (Negative); Ketones,Urine Negative (Negative); Leukocyte Esterase,Urine Negative (Negative); Nitrite,Urine Negative (Negative); Protein,Urine Negative (Negative); Specific Gravity,Urine 1.013 (1.001-1.035); Urobilinogen,Urine <2.0 mg/dL (<2.0)
--- NOTE | 2021-11-17 10:52 | P.CONS ---
History of Present Illness - History of Present Illness This is a pleasant 31 years old male with past medical history of Severe anxi ety, migraines, chronic back pain, difficulty with focusing attention. Was admitted to the mental health unit with signs and symptoms of depression associated with auditory and visual hallucination for the past few months. Also associated with some suicidal thoughts of jumping in the liver. Medical consult has been requested 14 medical management. Patient was lying in bed looks comfortable. He denies any physical complaints. No headache or weakness or numbness. No dizziness. No chest pain or dyspnea or coughing. No abdominal pain or diarrhea or vomiting. No dysuria. No fever. Admits to smoking cigarettes without specification. Patient is counseled to quit and he agrees to the nicotine patch. No alcohol or illicit tracts. Vitals are stable. Labs including CBC, BMP, liver enzymes, urinalysis, urine drug screen are unremarkable. Coronavirus not detected. Review of Systems Review of systems CONSTITUTIONAL: No fever, no malaise, no fatigue. HEENT: No recent visual problems or hearing problems. Denied any sore throat. CARDIOVASCULAR: No orthopnea, PND, no palpitations, no syncope. PULMONARY: No shortness of breath, no cough, no hemoptysis. GASTROINTESTINAL: No diarrhea, no nausea, no vomiting, no abdominal pain. Normoactive bowel sounds. NEUROLOGICAL: No headaches, no weakness, no numbness. HEMATOLOGICAL: Denies any bleeding or petechiae. GENITOURINARY: Denies any burning micturition, frequency, or urgency. MUSCULOSKELETAL/RHEUMATOLOGICAL: Denies any joint pain, swelling, or any muscle pain. ENDOCRINE: Denies any polyuria or polydipsia. Past Medical History Past Medical History: Hypertension Additional Past Medical History / Comment(s): Severe anxiety, migraines, chronic back pain, difficulty with focusing attention. History of Any Multi-Drug Resistant Organisms: None Reported Past Surgical History: Orthopedic Surgery Additional Past Surgical History / Comment(s): Left wrist open reduction internal fixation, lipoma removed from right posterior shoulder. Past Anesthesia/Blood Transfusion Reactions: No Reported Reaction Past Psychological History: ADD/ADHD, Anxiety, Depression Additional Psychological History / Comment(s): OCD, ADD Smoking Status: Vaper Past Alcohol Use History: Occasional Additional Past Alcohol Use History / Comment(s): Patient is a smoker of one pack per day for 4 years. He states he has not had alcohol since his DUI in May 2015. Hx of opiate 3 years ago. Patient reports chewing tobacco and vaping. 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 3-15 vicodin per day. Denies use since treatment.Rx for xanax that patient reports using 2 mg po bid. - Past Family History Father Family Medical History: Cancer, CVA/TIA, Myocardial Infarction ([place]) Additional Family Medical History / Comment(s): Father is alive at age 58. Patient states he has a rare cancer and undergoing chemotherapy. Mother Family Medical History: Coronary Artery Disease (CAD), Hypertension, Syncope Additional Family Medical History / Comment(s): Mother is alive at age 54 and also has history of anxiety and depression. Sister(s) History Unknown: Yes Family Medical History: No Reported History Medications and Allergies Home Medications Medication Instructions Recorded Confirmed Type fluPHENAZine decanoate [Prolixin 25 mg IM [id number] #1 each 10/13/21 11/16/21 Rx Decanoate] Testosterone Cypionate 200 mg IM Q14D 11/16/21 11/16/21 History [Depo-Testosterone] Allergies Allergy/AdvReac Type Severity Reaction Status Date / Time No Known Allergies Allergy Verified 11/16/21 23:22 Physical Exam Vitals: Vital Signs Temp Pulse Pulse Resp BP BP Pulse Ox 11/16/21 22:51 97.0 F L 66 18 125/76 98 11/16/21 16:07 98.6 F 71 18 146/91 98 Intake and Output 11/16/21 11/16/21 11/17/21 14:59 22:59 06:59 Other: Weight 85.9 kg GENERAL: The patient is alert and oriented x3, not in any acute distress. Well developed, well nourished. HEENT: Pupils are round and equally reacting to light. EOMI. No scleral icterus. No conjunctival pallor. Normocephalic, atraumatic. No pharyngeal erythema. No thyromegaly. CARDIOVASCULAR: S1 and S2 present. No murmurs, rubs, or gallops. PULMONARY: Chest is clear to auscultation, no wheezing or crackles. ABDOMEN: Soft, nontender, nondistended, normoactive bowel sounds. No palpable organomegaly. MUSCULOSKELETAL: No joint swelling or deformity. EXTREMITIES: No cyanosis, clubbing, or pedal edema. NEUROLOGICAL: Gross neurological examination did not reveal any focal deficits. SKIN: No rashes. no petechiae. Results CBC & Chem 7: 11/17/21 07:43 11/17/21 07:43 Assessment and Plan Assessment: - Suicidal ideation, depression, anxiety and hallucination and other cycle masses, the [place] as per psych primary team - Nicotine dependence, patient is counseled and he agrees to the nicotine patch We recommend patient follow up with PCP in one week after discharge, he was consulted and agrees Thank you for consulting us
[2021-11-17] MEDS: hydrOXYzine pamoate 25 MG CAP PO PRN ×2 (14:12→20:27)
--- NOTE | 2021-11-17 14:28 | P.HP ---
Psychiatric H&P - . H&P Date: 11/17/21 History & Physical: Allergies Allergy/AdvReac Type Severity Reaction Status Date / Time No Known Allergies Allergy Verified 11/16/21 23:22 Vital Signs Temp 98 F 11/17/21 08:07 Pulse 100 11/17/21 08:07 Resp 18 11/17/21 08:07 BP 130/86 11/17/21 08:07 Pulse Ox 98 11/16/21 22:51 FiO2 Intake & Output 11/16/21 11/17/21 11/17/21 18:59 06:59 18:59 Weight 90.718 kg 85.9 kg Laboratory Last Values WBC 6.8 k/uL (3.8-10.6) 11/17/21 07:43 RBC 5.10 m/uL (4.30-5.90) 11/17/21 07:43 Hgb 15.9 gm/dL (13.0-17.5) 11/17/21 07:43 Hct 46.4 % (39.0-53.0) 11/17/21 07:43 MCV 90.9 fL (80.0-100.0) 11/17/21 07:43 MCH 31.1 pg (25.0-35.0) 11/17/21 07:43 MCHC 34.2 g/dL (31.0-37.0) 11/17/21 07:43 RDW 13.1 % (11.5-15.5) 11/17/21 07:43 Plt Count 261 k/uL (150-450) 11/17/21 07:43 MPV 7.9 11/17/21 07:43 Neutrophils % 61 % 11/17/21 07:43 Lymphocytes % 28 % 11/17/21 07:43 Monocytes % 6 % 11/17/21 07:43 Eosinophils % 3 % 11/17/21 07:43 Basophils % 1 % 11/17/21 07:43 Neutrophils # 4.1 k/uL (1.3-7.7) 11/17/21 07:43 Lymphocytes # 1.9 k/uL (1.0-4.8) 11/17/21 07:43 Monocytes # 0.4 k/uL (0-1.0) 11/17/21 07:43 Eosinophils # 0.2 k/uL (0-0.7) 11/17/21 07:43 Basophils # 0.1 k/uL (0-0.2) 11/17/21 07:43 Sodium 142 mmol/L (137-145) 11/17/21 07:43 Potassium 4.5 mmol/L (3.5-5.1) 11/17/21 07:43 Chloride 105 mmol/L (98-107) 11/17/21 07:43 Carbon Dioxide 24 mmol/L (22-30) 11/17/21 07:43 Anion Gap 13 mmol/L 11/17/21 07:43 BUN 16 mg/dL (9-20) 11/17/21 07:43 Creatinine 1.05 mg/dL (0.66-1.25) 11/17/21 07:43 Est GFR (CKD-EPI)AfAm >90 (>60 ml/min/1.73 sqM) 11/17/21 07:43 Est GFR (CKD-EPI)NonAf >90 (>60 ml/min/1.73 sqM) 11/17/21 07:43 Glucose 99 mg/dL (74-99) 11/17/21 07:[address] Glu mg/dL 97 11/17/21 07:43 Hemoglobin A1c 5.0 % (0.0-6.0) 11/17/21 07:43 Calcium 9.5 mg/dL (8.4-10.2) 11/17/21 07:43 Total Bilirubin 0.8 mg/dL (0.2-1.3) 11/17/21 07:43 Conjugated Bilirubin 0.0 mg/dL (0.0-0.3) 11/17/21 07:43 Unconjugated Bilirubin 0.7 mg/dL (0.0-1.1) 11/17/21 07:43 Delta Bilirubin 0.1 mg/dL (0.0-0.2) 11/17/21 07:43 AST 18 U/L (17-59) 11/17/21 07:43 ALT 15 U/L (4-49) 11/17/21 07:43 Alkaline Phosphatase 56 U/L (38-126) 11/17/21 07:43 Total Protein 7.5 g/dL (6.3-8.2) 11/17/21 07:43 Albumin 4.8 g/dL (3.5-5.0) 11/17/21 07:43 TSH 1.120 mIU/L (0.465-4.680) 11/17/21 07:43 Urine Color Yellow 11/17/21 08:57 Urine Appearance Clear (Clear) 11/17/21 08:57 Urine pH 6.0 (5.0-8.0) 11/17/21 08:57 Ur Specific [place] 1.013 (1.001-1.035) 11/17/21 08:57 Urine Protein Negative (Negative) 11/17/21 08:57 Urine Glucose (UA) Negative (Negative) 11/17/21 08:57 Urine Ketones Negative (Negative) 11/17/21 08:57 Urine Blood Negative (Negative) 11/17/21 08:57 Urine Nitrite Negative (Negative) 11/17/21 08:57 Urine Bilirubin Negative (Negative) 11/17/21 08:57 Urine Urobilinogen <2.0 mg/dL (<2.0) 11/17/21 08:57 Ur Leukocyte Esterase Negative (Negative) 11/17/21 08:57 Urine Opiates Screen Not Detected (NotDetected) 11/16/21 16:19 Ur Oxycodone Screen Not Detected (NotDetected) 11/16/21 16:19 Urine Methadone Screen Not Detected (NotDetected) 11/16/21 16:19 Ur Propoxyphene Screen Not Detected (NotDetected) 11/16/21 16:19 Ur Barbiturates Screen Not Detected (NotDetected) 11/16/21 16:19 U Tricyclic Antidepress Not Detected (NotDetected) 11/16/21 16:19 Ur Phencyclidine Scrn Not Detected (NotDetected) 11/16/21 16:19 Ur Amphetamines Screen Not Detected (NotDetected) 11/16/21 16:19 U Methamphetamines Scrn Not Detected (NotDetected) 11/16/21 16:19 U Benzodiazepines Scrn Not Detected (NotDetected) 11/16/21 16:19 Urine Cocaine Screen Not Detected (NotDetected) 11/16/21 16:19 U Marijuana (THC) Screen Not Detected (NotDetected) 11/16/21 16:19 Coronavirus (PCR) Not Detected (Not Detectd) 11/16/21 18:29 11/17/21 13:43 IDENTIFYING DATA: Patient is a 31 year old male , has a guardian. Currently was living and a three-quarter house. HPI: Patient presented to the hospital yesterday after he called EMS. Patient has been admitted several times to the mental health unit and is being seen by Dr. Dias at [facility]. Patient is currently on Prolixin D 25 mg IM every 2 weeks. Patient was admitted yesterday voluntarily to the mental health unit for hearing voices and having suicidal thoughts according to ER report. Patient was seen today by creative writer and agreeable to speak in the office. Patient appeared to be fairly calm during conversation and directable. He appears to have poor hygiene and grooming. He states that he has been taking his shot at [facility] and last took it a daniel of this month. He claims that it has been helping somewhat with the voices however they believe they have been "getting worse". He states that the voices are "repeating my thoughts" and states that "I thought I could communica te with other people". He states that his ears have also been ringing which has been making his anxiety worse. He states that he's been dealing with the voices for about 3 years now. He states that he is okay with being back on the Prolixin. He claims that he had a panic attack at [facility] and did not want to reside there. He states that his sleep is poor approximately 5 hours a night. States appetite is fair. He claims that he is still having suicidal thoughts at this time however no intent or plan. Continues to endorse auditory hallucinations at this point. Denies any visual hallucinations. He claims that he is not using any recreational drugs at this time. UDS is negative. He claims that he is using cigarettes daily. PAST PSYCHIATRIC HISTORY: Per assessment from 06/10/21: Patient states that [gives a history of psychosis, benzodiazepine abuse]. He was previously on various other medications including Abilify, Vistaril, Zoloft, Benadryl, Klonopin and Xanax. Patient was last psychiatrically hospitalized in October 2021. He states that he currently follows up with his psychiatrist in [place]. [Patient denies any history of suicide attempts in the past.] PMH: Severe anxiety, migraines, chronic back pain, difficulty with focusing attention. ALLERGIES: as per EMR CHEMICAL DEPENDENCY HISTORY: As per HPI. FAMILY PSYCHIATRIC/SUBSTANCE USE HISTORY: None reported SOCIAL HISTORY: Per records: Patient was born and raised in [facility]. He states that he has some college. He claims that [facility] has been [facility] numerous times. He claims that he was charged with OWI and larceny in the past. He does not have any kids. He is . He has a guardian. He currently resides in a hotel. MENTAL STATUS EXAM: General Appearance: Patient appears to be stated age, has multiple tattoos. Unkempt, disheveled appearance. Multiple tattoos. Behavior: Patient is guarded, yet attempts to cooperate Speech: Patient's speech is fluent and nonpressured. Soft tone. Mood/Affect: Mood is anxious and depressed, affect is congruent and constricted. Suicidality/Homicidality: Patient denies having any homicidal ideations. Admits to suicidal no ideations intent or plan. Perceptions: Patient denies any visual hallucinations. Admits to auditory hallucinations. Though content/process: He appears paranoid. [place], poverty of content. Memory and concentration: Alert and oriented to person, place, time. Grossly intact for purposes of assessment. Judgment and insight: poor. STRENGTHS/WEAKNESSES: Patient strength is that he is resilient. Weaknesses the patient has chronic mental illness and history of noncompliance of medications. INTELLECT: Average IMPRESSIONS: Schizoaffective disorder Nicotine dependence PLAN: -Patient is admitted under voluntary status to MHU for stabilization of psychiatric symptoms and safety. Patient is currently on a deferral however at this time as patient is compliant with medications and follow-up, will not file demand for hearing. -Medications: Start Prolixin by mouth 4 mg twice a day for psychosis. We'll likely increase Prolixin decanoate dose prior to discharge. Trazodone 100 mg da betty at bedtime for insomnia/mood. -Ativan and Haldol PRN for agitation/aggression -Internal Medicine consult to perform medical evaluation and physical. -NRT - nicotine patch -SW on board for discharge planning. Encourage patient to participate in groups to work on coping skills. 11/17/21 14:21 11/17/21 14:27
[2021-11-17 17:00] LABS: Chol/HDL Ratio 3.48 Ratio; LDL Cholesterol,Calculated 81.1 mg/dL (0.0-131.0); VLDL Calculation 10.06 mg/dL (5.00-40.00)
[2021-11-17] MEDS: traZODone HCL 100 MG TAB PO SCH (20:25)
[2021-11-18] MEDS: NICOTINE 14MG/24HR PATCH TRANSDERM SCH (08:11)
[2021-11-18] MEDS: hydrOXYzine pamoate 25 MG CAP PO PRN (08:12)
[2021-11-18] MEDS: DULoxetine HCL 30 MG CAPSULE.DR PO SCH (11:13)
--- NOTE | 2021-11-18 11:21 | P.PN ---
Progress Note - Text Progress Note Date: 11/18/21 Interval History: Patient was seen lying in his bed this morning and was directable and agreeable to speak with field underwriter in the office. He claims that he is still hearing voices at this time as finding and distressful. He states that he feels "about the same as yesterday" and denies any changes in his depression and anxiety today. He claims that he has been also positive for anxiety medications and was agreeable to try Cymbalta today. He states it is able to sleep fairly throughout the night. Has a fair appetite. Has not been going to many groups. We spoke about his Prolixin dose and is agreeable to continue on with it. At this time patient denies any suicidal or homical ideations, intent or plan. Patient denies any visual hallucinations and denies any paranoia or delusions. Patient denies any side effects from the medications and has been compliant with meds. Mental Status Exam: General Appearance: Patient appears to be stated age, has multiple tattoos. Unkempt, disheveled appearance. Multiple tattoos. Behavior: Patient is guarded, yet attempts to cooperate Speech: Patient's speech is fluent and nonpressured. Soft tone. Mood/Affect: Mood is anxious and depressed, affect is congruent and constricted. Suicidality/Homicidality: Patient denies having any homicidal ideations. Denies any suicidal ideations intent or plan. Perceptions: Patient denies any visual hallucinations. Admits to auditory hallucinations. Though content/process: He appears paranoid. [place], poverty of content. Memory and concentration: Alert and oriented to person, place, time. Grossly intact for purposes of assessment. Judgment and insight: poor IMPRESSIONS: Schizoaffective disorder Nicotine dependence Plan: -Patient continues to meet criteria for inpatient psychiatric admission for symptom stabilization and safety. Patient has signed adult voluntary form and medication consent and was placed in patient's chart. -Medications: Increase Prolixin by mouth to 6mg bid for psychosis. Likely increase Prolixin Decanoate injection prior to discharge. Trazodone 100 mg daily at bedtime for insomnia/mood. -When necessary Ativan and Haldol for agitation/aggression. -NRT - nicotine patch -SW on board for discharge planning. Encouraged the patient to participate in milieu.
[2021-11-18] MEDS: traZODone HCL 100 MG TAB PO SCH (21:10)
[2021-11-19] MEDS: DULoxetine HCL 30 MG CAPSULE.DR PO SCH (08:10)
[2021-11-19] MEDS: NICOTINE 14MG/24HR PATCH TRANSDERM SCH (08:10)
--- NOTE | 2021-11-19 10:59 | P.PN ---
Subjective Progress Note Date: 11/19/21 Principal diagnosis: IMPRESSIONS: Schizoaffective disorder Nicotine dependence Patient was seen lying in his bed this morning and was directable and agreeable to speak with automatic typewriter inspector in the office. He claims that he is still hearing voices but that they're not bothering him .he denies that he is having any command hallucinations He states that he feels "about the same as yesterday" and denies any changes in his depression and anxiety today. He states that he is taking his medications, He claims that he has been also positive for anxiety medications . He states it is able to sleep fairly throughout the night. Has a fair appetite. Has not been going to many groups. At this time patient denies any suicidal or homical ideations, intent or plan. Patient denies any visual hallucinations and denies any paranoia or delusions. But admits to auditory hallucinations Patient denies any side effects from the medications and has been compliant with meds. Mental Status Exam: General Appearance: Patient appears to be stated age, Behavior: Patient is guarded, yet attempts to cooperate Speech: Patient's speech is fluent and nonpressured. Soft tone. Although his responses where very quick and abrupt Mood/Affect: Mood is anxious and depressed, affect is congruent and constricted. Suicidality/Homicidality: Patient denies having any homicidal ideations. De nies any suicidal ideations intent or plan. Perceptions: Patient denies any visual hallucinations. Admits to auditory hallucinations. Though content/process: He appears paranoid. [place], poverty of content. Memory and concentration: Alert and oriented to person, place, time. Grossly intact for purposes of assessment. Judgment and insight: poor IMPRESSIONS: Schizoaffective disorder Nicotine dependence Plan: -Patient continues to meet criteria for inpatient psychiatric admission for symptom stabilization and safety. Patient has signed adult voluntary form and medication consent and was placed in patient's chart. -Medications: Increase Prolixin by mouth to 6mg bid for psychosis. Likely increase Prolixin Decanoate injection prior to discharge. Trazodone 100 mg daily at bedtime for insomnia/mood. -When necessary Ativan and Haldol for agitation/aggression. -NRT - nicotine patch -SW on board for discharge planning. Encouraged the patient to participate in milieu. Michael Atkinson M.D. 11/19/2021 Objective - Vital Signs Vital signs: Vital Signs Temp 98 F 11/17/21 08:07 Pulse 100 11/17/21 08:07 Resp 18 11/17/21 08:07 BP 130/86 11/17/21 08:07 Pulse Ox 98 11/16/21 22:51 FiO2 - Labs CBC & Chem 7: 11/17/21 07:43 11/17/21 07:43
[2021-11-19] MEDS: traZODone HCL 100 MG TAB PO SCH (20:16)
[2021-11-20] MEDS: DULoxetine HCL 30 MG CAPSULE.DR PO SCH (08:02)
[2021-11-20] MEDS: NICOTINE 14MG/24HR PATCH TRANSDERM SCH (08:02)
--- NOTE | 2021-11-20 12:13 | P.PN ---
Subjective Progress Note Date: 11/20/21 Principal diagnosis: IMPRESSIONS: Schizoaffective disorder Nicotine dependence Patient was seen walking down the hallway and agreeable to speak with fha underwriter in the office. He states that he is slightly feeling better He claims that he is still hearing voices but that they're not bothering him . he denies that he is having any command hallucinations He states that he is taking his medications, . He states it is able to sleep fairly throughout the night. Has a fair appetite. At this time patient denies any suicidal or homical ideations, intent or plan. Patient denies any visual hallucinations and denies any paranoia or delusions. But admits to auditory hallucinations Patient denies any side effects from the medications and has been compliant with meds. Mental Status Exam: General Appearance: Patient appears to be stated age, Behavior: Patient is superficial Speech: Patient's speech is fluent and nonpressured. Soft tone. Although his responses where very quick and abrupt Mood/Affect: Mood is anxious and depressed, affect is congruent and constricted. Suicidality/Homicidality: Patient denies having any homicidal ideations. Denies any suicidal ideations intent or plan. Perceptions: Patient denies any visual hallucinations. Admits to auditory hallucinations. Though content/process: He appears paranoid. [place], poverty of content. Memory and concentration: Alert and oriented to person, place, time. Grossly intact for purposes of assessment. Judgment and insight: poor IMPRESSIONS: Schizoaffective disorder Nicotine dependence Plan: -Patient continues to meet criteria for inpatient psychiatric admission for symptom stabilization and safety. Patient has signed adult voluntary form and medication consent and was placed in patient's chart. -Medications: Increase Prolixin by mouth to 6mg bid for psychosis. Likely increase Prolixin Decanoate injection prior to discharge. Trazodone 100 mg daily at bedtime for insomnia/mood. -When necessary Ativan and Haldol for agitation/aggression. -NRT - nicotine patch -SW on board for discharge planning. Encouraged the patient to participate in milieu. Michael Atkinson M.D. 11/20/2021 Objective - Vital Signs Vital signs: Vital Signs Temp 97.9 F 11/20/21 06:48 Pulse 50 L 11/20/21 06:48 Resp 16 11/20/21 06:48 BP 101/63 11/20/21 06:48 Pulse Ox 98 07/10/22 06:48 FiO2 Intake & Output 11/19/21 11/20/21 11/20/21 18:59 06:59 18:59 Weight 87.8 kg - Labs CBC & Chem 7: 11/17/21 07:43 11/17/21 07:43
[2021-11-20] MEDS: hydrOXYzine pamoate 25 MG CAP PO PRN (16:04)
[2021-11-20] MEDS: traZODone HCL 100 MG TAB PO SCH (20:42)
[2021-11-21] MEDS: NICOTINE 14MG/24HR PATCH TRANSDERM SCH (08:30)
[2021-11-21] MEDS: DULoxetine HCL 30 MG CAPSULE.DR PO SCH (08:31)
--- NOTE | 2021-11-21 18:13 | PN ---
PROGRESS NOTE DATE OF SERVICE: 11/21/2021. CHIEF COMPLAINT: The patient was admitted for psychosis. INTERVAL HISTORY: The patient has been doing fair. He had a quiet day yesterday. He tends to keep to himself. He does come out on the unit some. He does not interact much with others. He has not been attending groups. He slept 6 hours last night. Today he has been up and overall doing the same. When I talked to him today he did note that voices have been quieter. He says he still has quite a bit of anxiety. He does not feel that the anxiety medicine namely Vistaril has been very helpful. He said that he has been sleeping better. His appetite is fair still. He notes his mood is down. He tolerates his psychotropic medication. MENTAL STATUS: Patient sat without restlessness. Eye contact was fair. It was noted that he had a somewhat stiff posture and had very little extraneous movement. When he spoke, he showed very little facial expression. He spoke in a soft voice. He would respond with 1 or 2 word answers that were appropriate. He was not spontaneous or interactive. His mood was depressed. He seemed moderately distressed and had a worried manner. He seemed to continue to make some indications of having hallucinations, though quieter. He voiced no thoughts of harm. He was oriented and alert. ASSESSMENT: I will continue the current diagnosis and treatment plan. I will come continue psychotropic medications the same. In regard to his Prolixin, he did say he has been receiving Prolixin Decanoate 25 mg IM Q 2 weeks and that he believed he got his injections into November. He said that when he takes his morning Prolixin, it seems to help him for a while. As such, I will add Prolixin as a p.r.n. I will order Prolixin 5 mg b.i.d. p.r.n. for anxiety and psychosis. I reviewed the medication issues with the patient. I indicated that he can talk to Dr. [place] tomorrow if he feels that if he does take p.r.n. Prolixin and it helps that he can review that as far as a possible dose increase in his medications. We will focus on stabilization and discharge planning. MMODL / IJN: [id number] /
[2021-11-21] MEDS: traZODone HCL 100 MG TAB PO SCH (20:33)
[2021-11-22] MEDS: DULoxetine HCL 30 MG CAPSULE.DR PO SCH (08:13)
[2021-11-22] MEDS: NICOTINE 14MG/24HR PATCH TRANSDERM SCH (08:13)
[2021-11-22] MEDS ORDERED: DULoxetine HCL 30 MG CAPSULE.DR PO ONE (09:47)
[2021-11-22] MEDS ORDERED: fluPHENAZine DECANOATE 25 MG/ML 5ML MDV IM ONE (09:49)
--- NOTE | 2021-11-22 09:56 | P.PN ---
Progress Note - Text Progress Note Date: 11/22/21 Interval History: Patient was seen lying in his bed this morning and was directable and agreeable to speak with creative services writer in the office. Patient claims that the voices have improved however he still is hearing them at times. He claims that he is less distracted by them. He claims that he has not shown much interest in going to groups. He continues to state that he does not know where he is going when he is going to be discharged. We spoke about long-acting injection and patient is once again agreeable to take it today. He states that he is able to sleep fairly last night and denying any changes in his appetite. He continues to state that his mood is "down in the dumps" referring to depression. Continues to be fairly concrete and poverty of content. At this time patient denies any suicidal or homical ideations, intent or plan. Patient denies any visual hallucinations and denies any paranoia or delusions. Patient denies any side effects from the medications and has been compliant with meds. Mental Status Exam: General Appearance: Patient appears to be stated age, has multiple tattoos. Unkempt, improving hygiene. Multiple tattoos. Behavior: Patient is more cooperative today. Speech: Patient's speech is fluent and nonpressured. [place] Mood/Affect: Mood is anxious and depressed, improving mildly, affect is congruent and constricted. Suicidality/Homicidality: Patient denies having any homicidal ideations. Denies any suicidal ideations intent or plan. Perceptions: Patient denies any visual hallucinations. Admits to auditory hallucinations which have been improving. Though content/process: He appears paranoid. [place], poverty of content. Memory and concentration: Alert and oriented to person, place, time. Grossly intact for purposes of assessment. Judgment and insight: Improving mildly IMPRESSIONS: Schizoaffective disorder Nicotine dependence Plan: -Patient continues to meet criteria for inpatient psychiatric admission for symptom stabilization and safety. Patient has signed adult voluntary form and medication consent and was placed in patient's chart. -Medications: Decrease Prolixin by mouth to 4 mg bid for psychosis. Orders Prolixin Decanoate injection 50 mg IM today. Trazodone 100 mg daily at bedtime for insomnia/mood. Increase Cymbalta to 60 mg daily for mood/anxiety. -When necessary Ativan and Haldol for agitation/aggression. -NRT - nicotine patch -SW on board for discharge planning. Encouraged the patient to participate in milieu. Likely discharge in 1-2 days.
[2021-11-22] MEDS: traZODone HCL 100 MG TAB PO SCH (20:22)
[2021-11-23] MEDS: NICOTINE 14MG/24HR PATCH TRANSDERM SCH (08:28)
[2021-11-23 08:31] VITALS: BP 145/82; PULSE 80; RESP 18; TEMP 98.8
[2021-11-23] MEDS ORDERED: DULoxetine HCL 60 MG CAPSULE.DR PO SCH (09:00)
--- NOTE | 2021-11-23 11:35 | P.DS ---
Providers Date of admission: 11/16/21 20:39 Expected date of discharge: 11/23/21 Attending physician: Alejo Birmingham MD Consults: 11/16/21 20:40 Consult Physician Routine Consulting Provider: Can Maxwell Consult Reason/Comments: Medical H&P Do you want consulting provider notified?: Yes Primary care physician: Becky Cristobal - Discharge Diagnosis(es) (1) Schizoaffective disorder Current Visit: Yes Status: Acute Priority: High (2) Nicotine dependence Current Visit: Yes Status: Acute Priority: Low Hospital Course: Admission HPI: Admission note was completed by property underwriter "Patient is a 31 year old male , has a guardian. Currently was living and a [facility]-quarter house. Patient presented to the hospital yesterday after he called EMS. Patient has been admitted several times to the mental health unit and is being seen by Dr. Dias at [facility]. Patient is currently on Prolixin D 25 mg IM every 2 weeks. Patient was admitted yesterday voluntarily to the mental health unit for hearing voices and having suicidal thoughts according to ER report. Patient was seen today by property underwriter and agreeable to speak in the office. Patient appeared to be fairly calm during conversation and directable. He appears to have poor hygiene and grooming. He states that he has been taking his shot at [facility] and last took it a daniel of this month. He claims that it has been helping somewhat with the voices however they believe they have been "getting worse". He states that the voices are "repeating my thoughts" and states that "I thought I could communicate with other people". He states that his ears have also been ringing which has been making his anxiety worse. He states that he's been dealing with the voices for about 3 years now. He states that he is okay with being back on the Prolixin. He claims that he had a panic attack at [facility]-quarter house and did not want to reside there. He states that his sleep is poor approximately 5 hours a night. States appetite is fair. He claims that he is still having suicidal thoughts at this time however no intent or plan. Continues to endorse auditory hallucinations at this point. Denies any visual hallucinations. He claims that he is not using any recreational drugs at this time. UDS is negative. He claims that he is using cigarettes daily." Hospital course: Upon admission to the unit patient was directable and agreeable to commence treatment and signed adult voluntary form and patient is also on an acitve court order for mental health treatment. Patient got along well with other patients on the unit and followed unit protocol. Patient was compliant with the medications and denied any side effects throughout hospital course. Patient was started on by mouth Prolixin for psychosis and was given Prolixin D 50 mg IM on 11/22 and will be due for his next dose in 2 weeks on 12/06. Trazodone 100 mg daily at bedtime for insomnia/mood, Cymbalta 60 mg daily for mood/90. Patient spoke of his stressors however mainly kept to himself on the unit and did not attend many groups. Patient was also seen by medical team for history and physical exam. Throughout the course of the hospitalization patient gradually improved with regards to psychosis, mood, anxiety, sleep and returned back to their baseline level of functioning. On the day of discharge patient denied any suicidal or homicidal ideations intent or plan denied any auditory or visual hallucinations. Patient endorsed wanting to live for his health and future. The patient denied any access to guns or weapons. Patient denied any paranoia and did not endorse any delusions. Patient does not have a significant history of substance abuse and was counseled on abstaining from all substances including alcohol and marijuana. Patient was also counseled on the medications and need for regular compliance and was encouraged to follow-up with their outpatient appointment for mental health and also for primary care. hot iron worker to help coordinate d ischarge today for patient back to critical access hospital. Mental status exam: General Appearance: Patient appears to be unshaven, stated age is alert, pleasant, and cooperative. Patient is in no acute distress and has improved hygiene and grooming Behavior: Patient is calmly seated without any agitated behavior. Speech: Patient's speech is fluent and nonpressured. [place]. Mood/Affect: Patient reports their mood is "better", affect is congruent and constricted. Suicidality/Homicidality: Patient denies having any suicidal or homicidal ideation intent or plan. Perceptions: Patient denies any auditory or visual hallucinations. Though content/process: There is no evidence of any delusional thought content and thought process is linear and goal-directed. Memory and concentration: AOX3, grossly intact for the purposes of this session. Can spell "WORLD" backwards correctly. Judgment and insight: chronically poor, however has improved with guarded prognosis Impression: Schizoaffective disorder Nicotine dependence Plan: -Continue with discharge today as patient has improved and stabilized psychiatrically and is not currently an imminent threat to himself and/or others. Patient will remain at chronically elevated risk for harm to self and/or others due to his impulsivity. -Continue medications: Continue with Prolixin by mouth 3 mg twice a day for psychosis for 4 more days then discontinue. Patient received Prolixin D 50 mg IM on 11/22 and next dose will be due in 2 weeks on 12/06. Trazodone 100 mg daily at bedtime for insomnia/mood, Cymbalta 60 mg daily for mood/anxiety. -Patient was counseled on the need for medication compliance and appropriate follow-up at mental health and also primary care for medical issues. Patient verbalized understanding and agreed. -Social work to help arrange patient's discharge today back to critical access hospital. Social work also to arrange for patients follow up appointments with [facility] for psychiatric care along with follow up with primary care provider. -Patient counseled on abstaining from recreational drugs and marijuana and alcohol. Was informed/educated on the adverse effects on their physical and mental health. Patient verbally agreed and understood. -Patient was instructed to return to the hospital or seek immediate medical care if their psychiatric or medical symptoms do worsen or reoccur. Allergies Allergy/AdvReac Type Severity Reaction Status Date / Time No Known Allergies Allergy Verified 11/16/21 23:22 Laboratory Results WBC 6.8 k/uL (3.8-10.6) 11/17/21 07:43 RBC 5.10 m/uL (4.30-5.90) 11/17/21 07:43 Hgb 15.9 gm/dL (13.0-17.5) 11/17/21 07:43 Hct 46.4 % (39.0-53.0) 11/17/21 07:43 MCV 90.9 fL (80.0-100.0) 11/17/21 07:43 MCH 31.1 pg (25.0-35.0) 11/17/21 07:43 MCHC 34.2 g/dL (31.0-37.0) 11/17/21 07:43 RDW 13.1 % (11.5-15.5) 11/17/21 07:43 Plt Count 261 k/uL (150-450) 11/17/21 07:43 MPV 7.9 11/17/21 07:43 Neutrophils % 61 % 11/17/21 07:43 Lymphocytes % 28 % 11/17/21 07:43 Monocytes % 6 % 11/17/21 07:43 Eosinophils % 3 % 11/17/21 07:43 Basophils % 1 % 11/17/21 07:43 Neutrophils # 4.1 k/uL (1.3-7.7) 11/17/21 07:43 Lymphocytes # 1.9 k/uL (1.0-4.8) 11/17/21 07:43 Monocytes # 0.4 k/uL (0-1.0) 11/17/21 07:43 Eosinophils # 0.2 k/uL (0-0.7) 11/17/21 07:43 Basophils # 0.1 k/uL (0-0.2) 11/17/21 07:43 Sodium 142 mmol/L (137-145) 11/17/21 07:43 Potassium 4.5 mmol/L (3.5-5.1) 11/17/21 07:43 Chloride 105 mmol/L (98-107) 11/17/21 07:43 Carbon Dioxide 24 mmol/L (22-30) 11/17/21 07:43 Anion Gap 13 mmol/L 11/17/21 07:43 BUN 16 mg/dL (9-20) 11/17/21 07:43 Creatinine 1.05 mg/dL (0.66-1.25) 11/17/21 07:43 Est GFR (CKD-EPI)AfAm >90 (>60 ml/min/1.73 sqM) 11/17/21 07:43 Est GFR (CKD-EPI)NonAf >90 (>60 ml/min/1.73 sqM) 11/17/21 07:43 Glucose 99 mg/dL (74-99) 11/17/21 07:[address] Glu mg/dL 97 11/17/21 07:43 Hemoglobin A1c 5.0 % (0.0-6.0) 11/17/21 07:43 Calcium 9.5 mg/dL (8.4-10.2) 11/17/21 07:43 Total Bilirubin 0.8 mg/dL (0.2-1.3) 11/17/21 07:43 Conjugated Bilirubin 0.0 mg/dL (0.0-0.3) 11/17/21 07:43 Unconjugated Bilirubin 0.7 mg/dL (0.0-1.1) 11/17/21 07:43 Delta Bilirubin 0.1 mg/dL (0.0-0.2) 11/17/21 07:43 AST 18 U/L (17-59) 11/17/21 07:43 ALT 15 U/L (4-49) 11/17/21 07:43 Alkaline Phosphatase 56 U/L (38-126) 11/17/21 07:43 Total Protein 7.5 g/dL (6.3-8.2) 11/17/21 07:43 Albumin 4.8 g/dL (3.5-5.0) 11/17/21 07:43 Triglycerides 50.30 mg/dL (0.00-149.00) 11/17/21 07:43 Cholesterol 128.00 mg/dL (0.00-200.00) 11/17/21 07:43 LDL Cholesterol, Calc 81.1 mg/dL (0.0-131.0) 11/17/21 07:43 VLDL Cholesterol, Calc 10.06 mg/dL (5.00-40.00) 11/17/21 07:43 HDL Cholesterol 36.80 mg/dL (40.00-60.00) L 11/17/21 07:43 Cholesterol/HDL Ratio 3.48 Ratio 11/17/21 07:43 TSH 1.120 mIU/L (0.465-4.680) 11/17/21 07:43 Urine Color Yellow 11/17/21 08:57 Urine Appearance Clear (Clear) 11/17/21 08:57 Urine pH 6.0 (5.0-8.0) 11/17/21 08:57 Ur Specific [place] 1.013 (1.001-1.035) 11/17/21 08:57 Urine Protein Negative (Negative) 11/17/21 08:57 Urine Glucose (UA) Negative (Negative) 11/17/21 08:57 Urine Ketones Negative (Negative) 11/17/21 08:57 Urine Blood Negative (Negative) 11/17/21 08:57 Urine Nitrite Negative (Negative) 11/17/21 08:57 Urine Bilirubin Negative (Negative) 11/17/21 08:57 Urine Urobilinogen <2.0 mg/dL (<2.0) 11/17/21 08:57 Ur Leukocyte Esterase Negative (Negative) 11/17/21 08:57 Urine Opiates Screen Not Detected (NotDetected) 11/16/21 16:19 Ur Oxycodone Screen Not Detected (NotDetected) 11/16/21 16:19 Urine Methadone Screen Not Detected (NotDetected) 11/16/21 16:19 Ur Propoxyphene Screen Not Detected (NotDetected) 11/16/21 16:19 Ur Barbiturates Screen Not Detected (NotDetected) 11/16/21 16:19 U Tricyclic Antidepress Not Detected (NotDetected) 11/16/21 16:19 Ur Phencyclidine Scrn Not Detected (NotDetected) 11/16/21 16:19 Ur Amphetamines Screen Not Detected (NotDetected) 11/16/21 16:19 U Methamphetamines Scrn Not Detected (NotDetected) 11/16/21 16:19 U Benzodiazepines Scrn Not Detected (NotDetected) 11/16/21 16:19 Urine Cocaine Screen Not Detected (NotDetected) 11/16/21 16:19 U Marijuana (THC) Screen Not Detected (NotDetected) 11/16/21 16:19 Coronavirus (PCR) Not Detected (Not Detectd) 11/16/21 18:29 Vital Signs Temp 98.8 F 11/23/21 08:30 Pulse 80 11/23/21 08:30 Resp 18 11/23/21 08:30 BP 145/82 11/23/21 08:30 Pulse Ox 99 11/22/21 06:44 FiO2 Patient Condition at Discharge: Stable Plan - Discharge Summary Discharge Rx Participant: Yes New Discharge Prescriptions: New traZODone HCL [Desyrel] 100 mg PO HS 30 Days tab Nicotine 14Mg/24Hr Patch [Habitrol] 1 patch TRANSDERM DAILY 14 Days patch fluPHENAZine [Prolixin] 3 mg PO BID 4 Days tab DULoxetine HCL [Cymbalta] 60 mg PO DAILY 30 Days cap Continue Testosterone Cypionate [Depo-Testosterone] 200 mg IM Q14D Changed fluPHENAZine decanoate [Prolixin Decanoate] 50 mg IM [id number] #1 each Discharge Medication List Testosterone Cypionate [Depo-Testosterone] 200 mg IM Q14D 11/16/21 [History] DULoxetine HCL [Cymbalta] 60 mg PO DAILY 30 Days cap 11/23/21 [Rx] Nicotine 14Mg/24Hr Patch [Habitrol] 1 patch TRANSDERM DAILY 14 Days patch 11/23/21 [Rx] fluPHENAZine [Prolixin] 3 mg PO BID 4 Days tab 11/23/21 [Rx] fluPHENAZine decanoate [Prolixin Decanoate] 50 mg IM [id number] #1 each 11/23/21 [Rx] traZODone HCL [Desyrel] 100 mg PO HS 30 Days tab 11/23/21 [Rx] Follow up Appointment(s)/Referral(s): [facility] [Outside] - 11/25/21 10:00 am (11-25-21 at 10:[address] Rutledge 12-05-21 at 10:00 with Myrna Machado ) Becky Cristobal MD [Primary Care Provider] - 1-2 days Activity/Diet/Wound Care/Special Instructions: Avoid the use of street drugs and alcohol. Take all prescriptions as prescribed. When you are in need of refills on your medications, please contact your medical provider and/or outpatient psychiatrist to have this done. Please go to scheduled outpatient appointment for aftercare treatment. If symptoms return or become worse, call the crisis line at and/or go to the nearest emergency room for evaluation. Discharge Disposition: OTHER INSTITUTION NOT DEFINED
== END 2021-11-23 12:30 | disposition other institution (70) | DRG 885 ==
LOC: EC 16:02 → 3MHU 20:39
PROVIDERS: ADMIT Psychiatry & Neurology Psychiatry; ATTEND Psychiatry & Neurology Psychiatry
DX: F25.9 Schizoaffective disorder, unspecified (principal); R45.851 Suicidal ideations; F11.20 Opioid dependence, uncomplicated; F13.10 Sedative, hypnotic or anxiolytic abuse, uncomplicated; F32.A Depression, unspecified; I10 Essential (primary) hypertension; F17.210 Nicotine dependence, cigarettes, uncomplicated; F41.9 Anxiety disorder, unspecified; G89.29 Other chronic pain; M54.9 Dorsalgia, unspecified; F90.9 Attention-deficit hyperactivity disorder, unspecified type; F42.9 Obsessive-compulsive disorder, unspecified; G47.00 Insomnia, unspecified; Z20.822 Contact with and (suspected) exposure to COVID-19; Z91.14 Patient's other noncompliance with medication regimen; Z79.899 Other long term (current) drug therapy; Z86.018 Personal history of other benign neoplasm; Z87.81 Personal history of (healed) traumatic fracture; Z82.49 Family history of ischemic heart disease and other diseases of the circulatory system; Z82.3 Family history of stroke; Z80.8 Family history of malignant neoplasm of other organs or systems
CPT/HCPCS: 80053; 80061; 80306; 81003; 82075; 82248; 83036; 84443; 85025; 87635; 99285

== ENCOUNTER 2021-11-27 11:15 | Inpatient (IN) | payer MEDICAID, OTHER ==
--- NOTE | 2021-11-27 11:59 | ED ---
Psych HPI - General Chief Complaint: Psychiatric Symptoms Stated Complaint: psych eval Time Seen by Provider: 11/27/21 11:40 Source: patient Mode of arrival: ambulatory - History of Present Illness Initial Comments: Patient is a 32-year-old male with history of schizophrenia presenting with chief complaint of suicidal ideation. Patient states that he has been hearing voices talking about him, he states that the only thing that stops the voices is his Klonopin, but this is only temporary. He states he has intentions to hang himself. He denies any homicidal ideation. He denies any physical complaints at this time. He states that he was living at a fpc, but when his urine tested positive for benzodiazepines he was removed, he is unable to find a homeless half-way and has no one to stay with. - Related Data Home Medications Medication Instructions Recorded Confirmed Testosterone Cypionate 200 mg IM Q14D 11/16/21 11/27/21 [Depo-Testosterone] clonazePAM [KlonoPIN] 2 mg PO BID 11/27/21 11/27/21 Previous Rx's Medication Instructions Recorded DULoxetine HCL [Cymbalta] 60 mg PO DAILY 30 Days cap 11/23/21 Nicotine 14Mg/24Hr Patch [Habitrol] 1 patch TRANSDERM DAILY 14 Days 11/23/21 patch fluPHENAZine [Prolixin] 3 mg PO BID 4 Days tab 11/23/21 fluPHENAZine decanoate [Prolixin 50 mg IM [id number] #1 each 11/23/21 Decanoate] traZODone HCL [Desyrel] 100 mg PO HS 30 Days tab 11/23/21 Allergies Allergy/AdvReac Type Severity Reaction Status Date / Time No Known Allergies Allergy Verified 11/27/21 15:56 Review of Systems ROS Statement: Those systems with pertinent positive or pertinent negative responses have been documented in the HPI. ROS Other: All systems not noted in ROS Statement are negative. Past Medical History Past Medical History: Hypertension Additional Past Medical History / Comment(s): Severe anxiety, migraines, chronic back pain, difficulty with focusing attention. History of Any Multi-Drug Resistant Organisms: None Reported Past Surgical History: Orthopedic Surgery Additional Past Surgical History / Comment(s): Left wrist open reduction internal fixation, lipoma removed from right posterior shoulder. Past Anesthesia/Blood Transfusion Reactions: No Reported Reaction Past Psychological History: ADD/ADHD, Anxiety, Depression, Schizophrenia Smoking Status: Vaper Past Alcohol Use History: Occasional Past Drug Use History: None Reported - Past Family History Father Family Medical History: Cancer, CVA/TIA, Myocardial Infarction (CT) Additional Family Medical History / Comment(s): Father is alive at age 58. Patient states he has a rare cancer and undergoing chemotherapy. Mother Family Medical History: Coronary Artery Disease (CAD), Hypertension, Syncope Additional Family Medical History / Comment(s): Mother is alive at age 54 and also has history of anxiety and depression. Sister(s) History Unknown: Yes Family Medical History: No Reported History General Exam Limitations: no limitations General appearance: alert, in no apparent distress Head exam: Present: atraumatic, normocephalic, normal inspection Eye exam: Present: normal appearance, EOMI. Absent: scleral icterus, periorbital swelling Respiratory exam: Present: normal lung sounds bilaterally. Absent: respiratory distress, wheezes, rales, rhonchi, stridor Cardiovascular Exam: Present: regular rate, normal rhythm, normal heart sounds. Absent: systolic murmur, diastolic murmur, rubs, gallop, clicks Neurological exam: Present: alert, oriented X3, CN II-XII intact Psychiatric exam: Present: flat affect, homicidal ideation Skin exam: Present: warm, dry, intact, normal color. Absent: rash Course Vital Signs 11/27/21 11:29 Temperature 98.0 F Pulse Rate 81 Respiratory 18 Rate O2 Sat by Pulse 95 Oximetry Medical Decision Making - Medical Decision Making patient is a 31-year-old male with history of schizophrenia presenting with chief complaint of auditory hallucinations and suicidal ideation. He has no physical complaints at this time. Patient was evaluated by [facility] and it was determined that he will stay for inpatient treatment and evaluation. Patient was agreeable to this plan. My attending is Dr. Pang - Lab Data Lab Results 11/27/21 Range/Units 12:46 Urine Opiates Screen Not Detected (NotDetected) Ur Oxycodone Screen Not Detected (NotDetected) Urine Methadone Screen Not Detected (NotDetected) Ur Propoxyphene Screen Not Detected (NotDetected) Ur Barbiturates Screen Not Detected (NotDetected) U Tricyclic Antidepress Not Detected (NotDetected) Ur Phencyclidine Scrn Not Detected (NotDetected) Ur Amphetamines Screen Not Detected (NotDetected) U Methamphetamines Scrn Not Detected (NotDetected) U Benzodiazepines Scrn Detected H (NotDetected) Urine Cocaine Screen Not Detected (NotDetected) U Marijuana (THC) Screen Not Detected (NotDetected) Disposition Clinical Impression: Chronic schizophrenia, Suicidal ideation Disposition: ADMITTED IP TO THIS [facility] Condition: Fair Referrals: Becky Cristobal MD [Primary Care Provider] - 1-2 days Time of Disposition: 17:56 Decision to Admit Reason: Admit from EC Decision Date: 11/27/21 Decision Time: 17:56
[2021-11-27 13:02] LABS: Amphetamine Screen,Urine Not Detected (NotDetected); Barbiturate Screen,Urine Not Detected (NotDetected); Benzodiazepines Screen,Urine Detected (NotDetected); Cocaine Screen,Urine Not Detected (NotDetected); Methadone Screen, Urine Not Detected (NotDetected); Opiate Screen,Urine Not Detected (NotDetected); Oxycodone Screen, Urine Not Detected (NotDetected); Phencyclidine Screen,Urine Not Detected (NotDetected); Tricyclic Antidepressant,Urine Not Detected (NotDetected); Urn Cannabinoid Scrn Not Detected (NotDetected)
[2021-11-27] MEDS ORDERED: clonazePAM 0.5 MG TAB PO ONE (18:00)
[2021-11-27] MEDS ORDERED: ACETAMINOPHEN TAB 325 MG TAB PO PRN (19:28)
[2021-11-27] MEDS ORDERED: HALOPERIDOL LACTATE 5 MG/ML 1 ML VIAL IM PRN (19:28)
[2021-11-27] MEDS ORDERED: MAGNESIUM HYDROXIDE 2,400 MG/10 ML CUP PO PRN (19:28)
[2021-11-27] MEDS ORDERED: MAG HYDROX/AL HYDROX/SIMETH 30 ML CUP PO PRN (19:28)
[2021-11-27] MEDS ORDERED: LORazepam 1 MG/0.5 ML VIAL IM PRN (19:37)
[2021-11-27] MEDS: traZODone HCL 100 MG TAB PO SCH (20:38)
[2021-11-27] MEDS: LORazepam 1 MG TAB PO PRN (20:38)
[2021-11-27] MEDS ORDERED: clonazePAM 1 MG TAB PO SCH (21:00)
[2021-11-28] MEDS ORDERED: clonazePAM 1 MG TAB PO SCH (08:00)
[2021-11-28] MEDS: NICOTINE 14MG/24HR PATCH TRANSDERM SCH (08:27)
[2021-11-28] MEDS ORDERED: NICOTINE 14MG/24HR PATCH TRANSDERM SCH (09:00)
[2021-11-28] MEDS ORDERED: DULoxetine HCL 60 MG CAPSULE.DR PO SCH (09:00)
--- NOTE | 2021-11-28 11:04 | P.HP ---
Psychiatric H&P - . H&P Date: 11/28/21 History & Physical: Allergies Allergy/AdvReac Type Severity Reaction Status Date / Time No Known Allergies Allergy Verified 11/27/21 20:17 Vital Signs Temp 97.6 F 11/28/21 08:34 Pulse 94 11/28/21 08:34 Resp 18 11/28/21 08:34 BP 111/67 11/28/21 08:34 Pulse Ox 96 11/28/21 08:34 FiO2 Intake & Output 11/27/21 11/28/21 11/28/21 18:59 06:59 18:59 Weight 86.183 kg 86.183 kg Laboratory Last Values Urine Opiates Screen Not Detected (NotDetected) 11/27/21 12:46 Ur Oxycodone Screen Not Detected (NotDetected) 11/27/21 12:46 Urine Methadone Screen Not Detected (NotDetected) 11/27/21 12:46 Ur Propoxyphene Screen Not Detected (NotDetected) 11/27/21 12:46 Ur Barbiturates Screen Not Detected (NotDetected) 11/27/21 12:46 U Tricyclic Antidepress Not Detected (NotDetected) 11/27/21 12:46 Ur Phencyclidine Scrn Not Detected (NotDetected) 11/27/21 12:46 Ur Amphetamines Screen Not Detected (NotDetected) 11/27/21 12:46 U Methamphetamines Scrn Not Detected (NotDetected) 11/27/21 12:46 U Benzodiazepines Scrn Detected (NotDetected) H 11/27/21 12:46 Urine Cocaine Screen Not Detected (NotDetected) 11/27/21 12:46 U Marijuana (THC) Screen Not Detected (NotDetected) 11/27/21 12:46 Coronavirus (PCR) Not Detected (Not Detectd) 11/27/21 18:52 11/28/21 10:24 IDENTIFYING DATA: Patient is a 31 year old male , has a guardian. Currently homeless. History of schizoaffective disorder HPI: Patient presented to the hospital yesterday with complaints of hearing voices. He states that he was feeling suicidal as well. He is claiming he was recently discharged from the mental health unit and went back to [facility]. Patient states that he did not likes being a [facility] and left 2 days ago. He claims that he was homeless since then. He states that he was having distressing auditory hallucinations once again telling him to do things and "yelling at me". He claims that he took Klonopin which was prescribed by his outpatient psychiatrist. He states that the Klonopin helped with his voices and he came into the hospital for evaluation. He is currently on an active treatment order. Patient was recently discharged from [facility] [place] 11/23. Patient was given Prolixin D 50 mg IM on 11/22 and will be due for his next dose on 12/06. He follows up with [facility] currently. Patient claims that he has been taking his other medications including Cymbalta and trazodone. He states that he sleeping fairly well. He claims that his anxiety level is high at this time and is feeling depressed. He claims that he is using cigarettes daily. UDS is positive for benzodiazepines. He claims that at this time he is not having suicidal thoughts no intent or plan, denying any auditory or visual hallucinations. Denying any homicidal ideations intent or plan. PAST PSYCHIATRIC HISTORY: Patient states that [gives a history of psychosis, b enzodiazepine abuse]. He was previously on various other medications including Abilify, Vistaril, Zoloft, Benadryl, Klonopin and Xanax, prolixin D cymbalta. Patient was last psychiatrically hospitalized in november 2021. He states that he currently follows up with his psychiatrist in [place]. [Patient denies any history of suicide attempts in the past.] PMH: Severe anxiety, migraines, chronic back pain, difficulty with focusing attention. ALLERGIES: as per EMR CHEMICAL DEPENDENCY HISTORY: As per HPI. FAMILY PSYCHIATRIC/SUBSTANCE USE HISTORY: None reported SOCIAL HISTORY: Per records: Patient was born and raised in [facility]. He states that he has some college. He claims that he has been to care home and residential numerous times. He claims that he was charged with OWI and larceny in the past. He does not have any kids. He is . He has a guardian. He currently is homeless. MENTAL STATUS EXAM: General Appearance: Patient appears to be stated age, has multiple tattoos. Unkempt, disheveled appearance. Multiple tattoos. Behavior: Patient is guarded, yet attempts to cooperate. Argumentative. Speech: Patient's speech is fluent and nonpressured. Soft tone. Mood/Affect: Mood is anxious and depressed, affect is congruent and constricted. Suicidality/Homicidality: Patient denies having any homicidal ideations. Denies any suicidal no ideations intent or plan. Perceptions: Patient denies any visual hallucinations. Denies auditory hallucinations. Though content/process: Paranoia, [place], poverty of content. Focused on medications specifically Klonopin. Memory and concentration: Alert and oriented to person, place, time. Grossly intact for purposes of assessment. Judgment and insight: Chronically poor STRENGTHS/WEAKNESSES: Patient strength is that he is resilient. Weaknesses the patient has chronic mental illness and history of polysubstance abuse. INTELLECT: Average IMPRESSIONS: Schizoaffective disorder Nicotine dependence PLAN: -Patient is admitted under voluntary status to [facility] for stabilization of psychiatric symptoms and safety. -Medications: Patient was given Prolixin D 50 mg IM on 11/22 and will be due for next dose into 2 weeks on 12/06. Trazodone 100 mg daily at bedtime for insomnia/mood. Increase Cymbalta to 90 mg daily for mood/anxiety. Decrease Klonopin to 1 mg twice a day for anxiety. -Ativan and Haldol PRN for agitation/aggression -Internal Medicine consult to perform medical evaluation and physical. -NRT - nicotine patch -SW on board for discharge planning. Encourage patient to participate in groups to work on coping skills. Patient is currently homeless and will refer to [facility].
--- NOTE | 2021-11-28 11:49 | P.CONS ---
History of Present Illness - Reason for Consult Medical clearance - History of Present Illness Patient was is affective disorder has multiple hospital elevations in the past for psychiatric symptoms seem came in for will and admission. Patient denied any medical symptoms at this time patient does have history of migraines and chronic back pain. REVIEW OF SYSTEMS: CONSTITUTIONAL: No fever, no malaise, no fatigue. HEENT: No recent visual problems or hearing problems. Denied any sore throat. CARDIOVASCULAR: No chest pain, orthopnea, PND, no palpitations, no syncope. PULMONARY: No shortness of breath, no cough, no hemoptysis. GASTROINTESTINAL: No diarrhea, no nausea, no vomiting, no abdominal pain. NEUROLOGICAL: No headaches, no weakness, no numbness. HEMATOLOGICAL: Denies any bleeding or petechiae. GENITOURINARY: Denies any burning micturition, frequency, or urgency. MUSCULOSKELETAL/RHEUMATOLOGICAL: Denies any joint pain, swelling, or any muscle pain. ENDOCRINE: Denies any polyuria or polydipsia. The rest of the 14-point review of systems is negative. PHYSICAL EXAMINATION: GENERAL: The patient is alert and oriented x3, not in any acute distress. Well developed, well nourished. HEENT: Pupils are round and equally reacting to light. EOMI. No scleral icterus. No conjunctival pallor. Normocephalic, atraumatic. No pharyngeal erythema. No thyromegaly. CARDIOVASCULAR: S1 and S2 present. No murmurs, rubs, or gallops. PULMONARY: Chest is clear to auscultation, no wheezing or crackles. ABDOMEN: Soft, nontender, nondistended, normoactive bowel sounds. No palpable organomegaly. MUSCULOSKELETAL: No joint swelling or deformity. EXTREMITIES: No cyanosis, clubbing, or pedal edema. NEUROLOGICAL: Gross neurological examination did not reveal any focal deficits. SKIN: No rashes. Assessment and plan - psychiatric symptoms management as per primary service -Nicotine dependence,: Counseling was provided Patient is medically stable, we'll sign off at this time, was back if needed Past Medical History Past Medical History: Hypertension Additional Past Medical History / Comment(s): Severe anxiety, migraines, chronic back pain, difficulty with focusing attention. History of Any Multi-Drug Resistant Organisms: None Reported Past Surgical History: Orthopedic Surgery Additional Past Surgical History / Comment(s): Left wrist open reduction internal fixation, lipoma removed from right posterior shoulder. Past Anesthesia/Blood Transfusion Reactions: No Reported Reaction Smoking Status: Current every day smoker - Past Family History Father Family Medical History: Cancer, CVA/TIA, Myocardial Infarction ([place]) Additional Family Medical History / Comment(s): Father is alive at age 58. Patient states he has a rare cancer and undergoing chemotherapy. Mother Family Medical History: Coronary Artery Disease (CAD), Hypertension, Syncope Additional Family Medical History / Comment(s): Mother is alive at age 54 and also has history of anxiety and depression. Sister(s) History Unknown: Yes Family Medical History: No Reported History Medications and Allergies Home Medications Medication Instructions Recorded Confirmed Type Testosterone Cypionate 200 mg IM Q14D 11/16/21 11/27/21 History [Depo-Testosterone] DULoxetine HCL [Cymbalta] 60 mg PO DAILY 30 Days cap 11/23/21 11/27/21 Rx Nicotine 14Mg/24Hr Patch [Habitrol] 1 patch TRANSDERM DAILY 14 Days 11/23/21 11/27/21 Rx patch fluPHENAZine [Prolixin] 3 mg PO BID 4 Days tab 11/23/21 11/27/21 Rx fluPHENAZine decanoate [Prolixin 50 mg IM [id number] #1 each 11/23/21 11/27/21 Rx Decanoate] traZODone HCL [Desyrel] 100 mg PO HS 30 Days tab 11/23/21 11/27/21 Rx clonazePAM [KlonoPIN] 2 mg PO BID 11/27/21 11/27/21 History Allergies Allergy/AdvReac Type Severity Reaction Status Date / Time No Known Allergies Allergy Verified 11/27/21 20:17 Physical Exam Vitals: Vital Signs Temp Pulse Resp BP Pulse Ox 11/28/21 08:34 97.6 F 94 18 111/67 96 11/28/21 06:40 97.3 F L 82 111/57 95 11/27/21 20:41 98.2 F 68 15 119/72 Intake and Output 11/27/21 11/28/21 11/28/21 22:59 06:59 14:59 Other: Weight 86.183 kg Results Labs: Abnormal Lab Results - Last 24 Hours (Table) 11/27/21 Range/Units 12:46 U Benzodiazepines Scrn Detected H (NotDetected)
[2021-11-28] MEDS: LORazepam 1 MG TAB PO PRN (13:20)
[2021-11-28] MEDS: traZODone HCL 100 MG TAB PO SCH (20:20)
[2021-11-28] MEDS: clonazePAM 1 MG TAB PO SCH (20:20)
[2021-11-29] MEDS: DULoxetine HCL 30 MG CAPSULE.DR PO SCH (08:13)
[2021-11-29] MEDS: NICOTINE 14MG/24HR PATCH TRANSDERM SCH (08:13)
[2021-11-29] MEDS: clonazePAM 1 MG TAB PO SCH (08:15)
[2021-11-29] MEDS ORDERED: LORazepam 0.5 MG TAB PO PRN (09:53)
--- NOTE | 2021-11-29 10:39 | P.PN ---
Progress Note - Text Progress Note Date: 11/29/21 Interval History: Patient was seen lying in his bed this morning and was directable and agreeable to speak with sign writer letterer or painter in the office. Patient appears to be less anxious today, he states that he is feeling a bit better compared to yesterday. He is continuing to be concrete and poverty of content. He is denying any depression at this time. He claims is tolerating medications fairly well. He is not reporting any side effects at this time. He states that he is mainly staying in his room however has gone to some groups. He was fairly vague about what he is learning. He claims that he wants to do a family meeting with the social services designee to discuss his placement and if he can go back to one of his family members house. He spoke about the option for possibly going to a long-term. He states that he slept fairly last night has a fair appetite today. At this time patient denies any suicidal or homical ideations, intent or plan. Patient denies any auditory, visual hallucinations and denies any paranoia or delusions. Patient denies any side effects from the medications and has been compliant with meds. Mental Status Exam: General Appearance: Patient appears to be stated age, has multiple tattoos. Unkempt, improving mildly. Multiple tattoos. Behavior: Patient is guarded, yet attempts to cooperate. [place]. Speech: Patient's speech is fluent and nonpressured. Monotone Mood/Affect: Mood is anxious and depressed, improving, affect is congruent and constricted. Suicidality/Homicidality: Patient denies having any homicidal ideations. Denies any suicidal no ideations intent or plan. Perceptions: Patient denies any visual hallucinations. Denies auditory hallucinations. Though content/process: [place], poverty of content. Focused on medications. Memory and concentration: Alert and oriented to person, place, time. Grossly intact for purposes of assessment. Judgment and insight: Chronically poor IMPRESSIONS: Schizoaffective disorder Nicotine dependence Plan: -Patient continues to meet criteria for inpatient psychiatric admission for symptom stabilization and safety. Patient has not signed adult voluntary form and medication consent and was placed in patient's chart. -Medications: Prolixin D 50 mg IM on 11/22 and will be due for next dose into 2 weeks on 12/06. Trazodone 100 mg daily at bedtime for insomnia/mood. Cymbalta 90 mg daily for mood/anxiety. Decrease Klonopin to 0.5 mg three times a day for anxiety. -When necessary Ativan and Haldol for agitation/aggression. -NRT - nicotine patch -SW on board for discharge planning. Encouraged the patient to participate in milieu. Patient is currently homeless and will refer to [facility].
[2021-11-29] MEDS: clonazePAM 0.5 MG TAB PO SCH ×2 (15:55→20:20)
[2021-11-29] MEDS: traZODone HCL 100 MG TAB PO SCH (20:20)
[2021-11-30] MEDS: NICOTINE 14MG/24HR PATCH TRANSDERM SCH (08:08)
[2021-11-30] MEDS: DULoxetine HCL 30 MG CAPSULE.DR PO SCH (08:09)
[2021-11-30] MEDS: clonazePAM 0.5 MG TAB PO SCH ×3 (08:09→21:22)
--- NOTE | 2021-11-30 11:25 | P.PN ---
Progress Note - Text Progress Note Date: 11/30/21 Interval History: Patient was seen lying in his bed this morning and was directable and agreeable to speak with commercial insurance underwriter in the office. Patient appears to be less anxious today and claims that he is feeling "alright". He continues to be concrete and monotone. He states that he was able sleep fairly last night, showering every 2 days. He is continuing to be concerned about being homeless and claims that he is not able to get in touch with his parents. His parents do have a PPO against him. He was interested in going to a long term upon discharge however does not know which one. He states that his anxiety has been improving at this time however feels somewhat depressed. He was agreeable of the Cymbalta increased for tomorrow. He claims that he is hearing the voices again "on and off" and will be due for his next Prolixin injection tomorrow. At this time patient denies any suicidal or homical ideations, intent or plan. Patient claims that he is denies any visual hallucinations and denies any paranoia or delusions. Patient denies any side effects from the medications and has been compliant with meds. Mental Status Exam: General Appearance: Patient appears to be stated age, has multiple tattoos. Hygiene improving mildly. Multiple tattoos. Behavior: Patient is guarded, yet attempts to cooperate. [place]. Speech: Patient's speech is fluent and nonpressured. Monotone Mood/Affect: Mood is anxious and depressed, improving, affect is congruent and constricted. Suicidality/Homicidality: Patient denies having any homicidal ideations. Denies any suicidal no ideations intent or plan. Perceptions: Patient denies any visual hallucinations. Claims that he is having some auditory hallucinations once again. Though content/process: [place], poverty of content. Focused on medications and discharge planning. Memory and concentration: Alert and oriented to person, place, time. Grossly intact for purposes of assessment. Judgment and insight: Chronically poor, improving mildly IMPRESSIONS: Schizoaffective disorder Nicotine dependence Plan: -Patient continues to meet criteria for inpatient psychiatric admission for symptom stabilization and safety. Patient has not signed adult voluntary form and medication consent and was placed in patient's chart. -Medications: Prolixin D 50 mg IM on 11/22 and will give next dose tomorrow. Will increase frequency prolixin injections to [id number]. Trazodone 100 mg daily at bedtime for insomnia/mood. increase Cymbalta 60 mg BID for mood/anxiety. Klonopin to 0.5 mg three times a day for anxiety. -When necessary Ativan and Haldol for agitation/aggression. -NRT - nicotine patch -SW on board for discharge planning. Encouraged the patient to participate in milieu. Patient is currently homeless and will refer to [facility] vs long term in [place]. Patients parents have a PPO against him and he is not allowed back there. likely discharge sunday.
[2021-11-30] MEDS: DULoxetine HCL 60 MG CAPSULE.DR PO SCH (21:22)
[2021-11-30] MEDS: traZODone HCL 100 MG TAB PO SCH (21:22)
[2021-12-01] MEDS: DULoxetine HCL 60 MG CAPSULE.DR PO SCH ×2 (08:20→20:18)
[2021-12-01] MEDS: clonazePAM 0.5 MG TAB PO SCH ×3 (08:20→23:07)
[2021-12-01] MEDS: NICOTINE 14MG/24HR PATCH TRANSDERM SCH (08:20)
[2021-12-01] MEDS ORDERED: fluPHENAZine DECANOATE 25 MG/ML 5ML MDV IM SCH (09:00)
--- NOTE | 2021-12-01 11:07 | P.PN ---
Progress Note - Text Progress Note Date: 12/01/21 Interval History: Patient was seen lying in his bed this morning and was directable and agreeable to speak with publicity writer in the office. Patient claims that he is still feeling somewhat anxious however is mainly related to where he is going to be going. He claims that he got the Prolixin D injections morning. He asked more questions about his medications. He appears to be more directable opportunities be concrete and monotone. He states that his mood is improving. He states that he has been going to some groups however was fairly vague about what he is learning. He states that he is able to sleep about 6 or 7 hours last night, fair appetite. At this time patient denies any suicidal or homical ideations, intent or plan. Patient claims that he is denies any visual hallucinations and denies any paranoia or delusions. Patient denies any side effects from the medications and has been compliant with meds. Mental Status Exam: General Appearance: Patient appears to be stated age, has multiple tattoos. Hygiene improving mildly. Multiple tattoos. Behavior: Patient attempts to cooperate. [place]. Speech: Patient's speech is fluent and nonpressured. Monotone Mood/Affect: Mood is anxious, improving, affect is congruent and constricted. Suicidality/Homicidality: Patient denies having any homicidal ideations. Denies any suicidal no ideations intent or plan. Perceptions: Patient denies any visual hallucinations. Claims that he is having some auditory hallucinations once again. Though content/process: [place], poverty of content. Focused on medications and discharge planning. Memory and concentration: Alert and oriented to person, place, time. Grossly intact for purposes of assessment. Judgment and insight: Chronically poor, improving mildly IMPRESSIONS: Schizoaffective disorder Nicotine dependence Plan: -Patient continues to meet criteria for inpatient psychiatric admission for symptom stabilization and safety. Patient has not signed adult voluntary form and medication consent and was placed in patient's chart. -Medications: given Prolixin D 50 mg IM on 12/01 and will be due for next dose on 12/11, now set for [id number]. Trazodone 100 mg daily at bedtime for insomnia/mood. Cymbalta 60 mg BID for mood/anxiety. Klonopin to 0.5 mg three times a day for anxiety. -When necessary Ativan and Haldol for agitation/aggression. -NRT - nicotine patch -SW on board for discharge planning. Encouraged the patient to participate in milieu. Patient is currently homeless and will refer to [facility] vs group home in [place]. Patients parents have a PPO against him and he is not allowed back there. likely discharge tomorrow to group home.
[2021-12-01] MEDS: traZODone HCL 100 MG TAB PO SCH (20:18)
[2021-12-02 06:58] VITALS: BP 112/61; PULSE 77; RESP 16; TEMP 98.1
[2021-12-02] MEDS: clonazePAM 0.5 MG TAB PO SCH (08:33)
[2021-12-02] MEDS: NICOTINE 14MG/24HR PATCH TRANSDERM SCH (08:33)
[2021-12-02] MEDS: DULoxetine HCL 60 MG CAPSULE.DR PO SCH (08:33)
--- NOTE | 2021-12-02 09:51 | P.DS ---
Providers Date of admission: 11/27/21 19:23 Expected date of discharge: 12/02/21 Attending physician: Alejo Birmingham MD Consults: 11/27/21 19:28 Consult Physician Routine Consulting Provider: Can Maxwell Consult Reason/Comments: MEDICAL MANAGEMENT Do you want consulting provider notified?: Yes Primary care physician: Becky Cristobal - Discharge Diagnosis(es) (1) Schizoaffective disorder Current Visit: Yes Status: Acute Priority: High (2) Nicotine dependence Current Visit: Yes Status: Acute Priority: Low Hospital Course: Admission HPI: Admission note was completed by junior copywriter "Patient is a 31 year old male , has a guardian. Currently homeless. History of schizoaffective disorder. Patient presented to the hospital yesterday with complaints of hearing voices. He states that he was feeling suicidal as well. He is claiming he was recently discharged from the mental health unit and went back to [facility]. Patient states that he did not likes being a [facility] and left 2 days ago. He claims that he was homeless since then. He states that he was having distressing auditory hallucinations once again telling him to do things and "yelling at me". He claims that he took Klonopin which was prescribed by his outpatient psychiatrist. He states that the Klonopin helped with his voices and he came into the hospital for evaluation. He is currently on an active treatment order. Patient was recently discharged from and ON 11/23. Patient was given Prolixin D 50 mg IM on 11/22 and will be due for his next dose on 12/06. He follows up with [facility] currently. Patient claims that he has been taking his other medications including Cymbalta and trazodone. He states that he sleeping fairly well. He claims that his anxiety level is high at this time and is feeling depressed. He claims that he is using cigarettes daily. UDS is positive for benzodiazepines. He claims that at this time he is not having suicidal thoughts no intent or plan, denying any auditory or visual hallucinations. Denying any homicidal ideations intent or plan." Hospital course: Upon admission to the unit patient was directable and agreeable to commence treatment and signed adult voluntary form as patient was already on a deferral and has been taking his meds. Patient got along well with other patients on the unit and followed unit protocol. Patient was compliant with the medications and denied any side effects throughout hospital course. Patient was started on trazodone once again, 100 mg daily at bedtime for insomnia/mood, Cymbalta increased to a dose of 60 mg twice a day for mood/anxiety, Klonopin was restarted however decreased down to 0.5 mg 3 times a day for anxiety. Patient was given Prolixin D 50 mg IM on 12/01 and will be due for his next dose on 12/09 and every 10 days thereafter. Patient spoke of his stressors and engaged in therapy both group and individual however mainly isolated in his room. Patient was also seen by medical team for history and physical exam. Throughout the course of the hospitalization patient gradually improved with regards to hallucinations, psychosis, sleep and returned back to their baseline level of functioning. On the day of discharge patient denied any suicidal or homicidal ideations intent or plan denied any auditory or visual hallucinations. Patient endorsed wanting to live for his health and future. The patient denied any access to guns or weapons. Patient denied any paranoia and did not endorse any delusions. Patient does have a significant history of substance abuse and was counseled on abstaining from all substances including alcohol and marijuana. Patient was also counseled on the medications and need for regular compliance and was encouraged to follow-up with their outpatient appointment for mental health and also for primary care. Patient is currently homeless and social and political studies professor will be able to help with arranging patient to go to a half-way [place] Mental status exam: General Appearance: Patient appears to have multiple tattoos, stated age is alert, pleasant, and cooperative. Patient is in no acute distress and has improved hygiene and grooming Behavior: Patient is calmly seated without any agitated behavior. Speech: Patient's speech is fluent and nonpressured. Mood/Affect: Patient reports their mood is "good", affect is congruent and constricted. Suicidality/Homicidality: Patient denies having any suicidal or homicidal ideation intent or plan. Perceptions: Patient denies any auditory or visual hallucinations. Though content/process: There is no evidence of any delusional thought content and thought process is linear and goal-directed. concrete. Memory and concentration: AOX3, grossly intact for the purposes of this session. Can spell "WORLD" backwards correctly. Judgment and insight: chronically poor, however has improved with guarded prognosis Impression: schizoaffective disorder Nicotine dependence Plan: -Continue with discharge today as patient has improved and stabilized psychiatrically and is not currently an imminent threat to himself and/or others. Patient will remain at chronically elevated risk for harm to self and/or others due to his impulsivity and chronic mental illness. -Continue medications: Patient received Prolixin D 50 mg IM on 12/01 and will be due for his next dose on 12/09 and every 10 days thereafter. Trazodone 100 mg daily at bedtime for insomnia/mood, Cymbalta 60 mg twice a day for anxiety/mood, decreased home dose of Klonopin down to 0.5 mg 3 times a day for anxiety. maps was checked and patient recently got his script of klonopin filled in early november for 30 days, he was advised to cut back to 0.5mg tid. -Patient was counseled on the need for medication compliance and appropriate fo llow-up at mental health and also primary care for medical issues. Patient verbalized understanding and agreed. -Social work to help arrange for patient discharge today to half-way. Social work also to arrange for patients follow up appointments with [facility] for psychiatric care along with follow up with primary care provider. -Patient counseled on abstaining from recreational drugs and marijuana and alcohol. Was informed/educated on the adverse effects on their physical and mental health. Patient verbally agreed and understood. Patient was offered substance abuse treatment however declined at this time. -Patient was instructed to return to the hospital or seek immediate medical care if their psychiatric or medical symptoms do worsen or reoccur. Allergies Allergy/AdvReac Type Severity Reaction Status Date / Time No Known Allergies Allergy Verified 11/27/21 20:17 Laboratory Results Urine Opiates Screen Not Detected (NotDetected) 11/27/21 12:46 Ur Oxycodone Screen Not Detected (NotDetected) 11/27/21 12:46 Urine Methadone Screen Not Detected (NotDetected) 11/27/21 12:46 Ur Propoxyphene Screen Not Detected (NotDetected) 11/27/21 12:46 Ur Barbiturates Screen Not Detected (NotDetected) 11/27/21 12:46 U Tricyclic Antidepress Not Detected (NotDetected) 11/27/21 12:46 Ur Phencyclidine Scrn Not Detected (NotDetected) 11/27/21 12:46 Ur Amphetamines Screen Not Detected (NotDetected) 11/27/21 12:46 U Methamphetamines Scrn Not Detected (NotDetected) 11/27/21 12:46 U Benzodiazepines Scrn Detected (NotDetected) H 11/27/21 12:46 Urine Cocaine Screen Not Detected (NotDetected) 11/27/21 12:46 U Marijuana (THC) Screen Not Detected (NotDetected) 11/27/21 12:46 Coronavirus (PCR) Not Detected (Not Detectd) 11/27/21 18:52 Vital Signs Temp 98.1 F 12/02/21 06:57 Pulse 77 12/02/21 06:57 Resp 16 12/02/21 06:57 BP 112/61 12/02/21 06:57 Pulse Ox 99 12/02/21 06:57 FiO2 Patient Condition at Discharge: Stable Plan - Discharge Summary Discharge Rx Participant: No New Discharge Prescriptions: New DULoxetine HCL [Cymbalta] 60 mg PO BID 30 Days cap fluPHENAZine decanoate [Prolixin Decanoate] 50 mg IM Q10D #1 ml traZODone HCL [Desyrel] 100 mg PO HS 30 Days tab Nicotine 14Mg/24Hr Patch [Habitrol] 1 patch TRANSDERM DAILY 14 Days patch clonazePAM [KlonoPIN] 0.5 mg PO TID #0 tab Continue Testosterone Cypionate [Depo-Testosterone] 200 mg IM Q14D Discontinued traZODone HCL [Desyrel] 100 mg PO HS 30 Days tab Nicotine 14Mg/24Hr Patch [Habitrol] 1 patch TRANSDERM DAILY 14 Days patch fluPHENAZine [Prolixin] 3 mg PO BID 4 Days tab fluPHENAZine decanoate [Prolixin Decanoate] 50 mg IM [id number] #1 each DULoxetine HCL [Cymbalta] 60 mg PO DAILY 30 Days cap clonazePAM [KlonoPIN] 2 mg PO BID Discharge Medication List Testosterone Cypionate [Depo-Testosterone] 200 mg IM Q14D 11/16/21 [History] DULoxetine HCL [Cymbalta] 60 mg PO BID 30 Days cap 12/02/21 [Rx] Nicotine 14Mg/24Hr Patch [Habitrol] 1 patch TRANSDERM DAILY 14 Days patch 12/02/21 [Rx] clonazePAM [KlonoPIN] 0.5 mg PO TID #0 tab 12/02/21 [Rx] fluPHENAZine decanoate [Prolixin Decanoate] 50 mg IM Q10D #1 ml 12/02/21 [Rx] traZODone HCL [Desyrel] 100 mg PO HS 30 Days tab 12/02/21 [Rx] Follow up Appointment(s)/Referral(s): [facility] [Outside] - 12/05/21 10:00 am (12-05-21 at 10:00 with Myrna Machado 12-15-21 at 10:30 with APPLICATION CHEMIST Keith Garcia) Becky Cristobal MD [Primary Care Provider] - 1-2 days Patient Instructions/Handouts: Schizophrenia (DC), Psychotic Disorder (DC) Activity/Diet/Wound Care/Special Instructions: Avoid the use of street drugs and alcohol. Take all prescriptions as prescribed. When you are in need of refills on your medications, please contact your medical provider and/or outpatient psychiatrist to have this done. Please go to scheduled outpatient appointment for aftercare treatment. If symptoms return or become worse, call the crisis line at and/or go to the nearest emergency room for evaluation. Discharge Disposition: HOME SELF-CARE
[2021-12-11] MEDS ORDERED: fluPHENAZine DECANOATE 25 MG/ML 5ML MDV IM SCH (09:00)
[2021-12-11] MEDS ORDERED: TESTOSTERONE CYPIONATE 200 MG/ML 1ML VIAL IM SCH (09:00)
== END 2021-12-02 14:48 | disposition home or self-care (01) | DRG 885 ==
LOC: EC 11:15 → 3MHU 19:23
PROVIDERS: ADMIT Psychiatry & Neurology Psychiatry; ATTEND Psychiatry & Neurology Psychiatry
DX: F25.9 Schizoaffective disorder, unspecified (principal); R45.851 Suicidal ideations; F17.210 Nicotine dependence, cigarettes, uncomplicated; F39 Unspecified mood [affective] disorder; F41.9 Anxiety disorder, unspecified; G47.00 Insomnia, unspecified; I10 Essential (primary) hypertension; Z59.00 Homelessness unspecified; Z79.899 Other long term (current) drug therapy; Z82.3 Family history of stroke; Z82.49 Family history of ischemic heart disease and other diseases of the circulatory system; Z20.822 Contact with and (suspected) exposure to COVID-19; Z28.310 Unvaccinated for COVID-19; Z28.21 Immunization not carried out because of patient refusal; G89.29 Other chronic pain; M54.9 Dorsalgia, unspecified; Z63.5 Disruption of family by separation and divorce; Z81.8 Family history of other mental and behavioral disorders; Z80.9 Family history of malignant neoplasm, unspecified
CPT/HCPCS: 80306; 82075; 87635; 99285

== ENCOUNTER 2021-12-02 19:42 | Emergency (ER) | payer OTHER ==
[2021-12-02 19:49] VITALS: BP 132/80; PULSE 120; RESP 19; TEMP 98
--- NOTE | 2021-12-02 19:58 | ED ---
General Adult HPI - General Chief complaint: Psychiatric Symptoms Stated complaint: Mental health eval Time Seen by Provider: 12/02/21 19:50 Source: patient, RN notes reviewed, old records reviewed Mode of arrival: ambulatory - History of Present Illness Initial comments: This is a 31-year-old male who presents emergency Department stating he is having suicidal ideations. Patient states he left the mental health unit today and he states that they were supposed to get him a place to stay and since they didn't give him a place to stay home with. Patient states because he is homeless he is now more depressed and he is considering harming himself but states he is not currently suicidal because he would just like to get some help and if he in fact got a place to live he does not believe he would harm himself. Patient denies any physical complaints today. - Related Data Home Medications Medication Instructions Recorded Confirmed Testosterone Cypionate 200 mg IM Q14D 11/16/21 11/27/21 [Depo-Testosterone] Previous Rx's Medication Instructions Recorded DULoxetine HCL [Cymbalta] 60 mg PO BID 30 Days cap 12/02/21 Nicotine 14Mg/24Hr Patch [Habitrol] 1 patch TRANSDERM DAILY 14 Days 12/02/21 patch clonazePAM [KlonoPIN] 0.5 mg PO TID #0 tab 12/02/21 fluPHENAZine decanoate [Prolixin 50 mg IM Q10D #1 ml 12/02/21 Decanoate] traZODone HCL [Desyrel] 100 mg PO HS 30 Days tab 12/02/21 Allergies Allergy/AdvReac Type Severity Reaction Status Date / Time No Known Allergies Allergy Verified 12/02/21 19:49 Review of Systems ROS Statement: Those systems with pertinent positive or pertinent negative responses have been documented in the HPI. ROS Other: All systems not noted in ROS Statement are negative. Past Medical History Past Medical History: Hypertension Additional Past Medical History / Comment(s): Severe anxiety, migraines, chronic back pain, difficulty with focusing attention. History of Any Multi-Drug Resistant Organisms: None Reported Past Surgical History: Orthopedic Surgery Additional Past Surgical History / Comment(s): Left wrist open reduction internal fixation, lipoma removed from right posterior shoulder. Past Anesthesia/Blood Transfusion Reactions: No Reported Reaction Past Psychological History: ADD/ADHD, Anxiety, Depression, Schizophrenia Smoking Status: Current every day smoker Past Alcohol Use History: None Reported Past Drug Use History: None Reported - Past Family History Father Family Medical History: Cancer, CVA/TIA, Myocardial Infarction ([place]) Additional Family Medical History / Comment(s): Father is alive at age 58. Patient states he has a rare cancer and undergoing chemotherapy. Mother Family Medical History: Coronary Artery Disease (CAD), Hypertension, Syncope Additional Family Medical History / Comment(s): Mother is alive at age 54 and also has history of anxiety and depression. Sister(s) History Unknown: Yes Family Medical History: No Reported History General Exam - General Exam Comments Initial Comments: GENERAL: Patient is well-developed and well-nourished. Patient is nontoxic and well-hydrated and is in no acute distress. ENT: Neck is soft and supple. Neck has full range of motion without eliciting any pain. EYES: The sclera were anicteric and conjunctiva were pink and moist. Extraocular movements were intact and pupils were equal round and reactive to light. Eyelids were unremarkable. PULMONARY: Unlabored respirations. Good breath sounds bilaterally. No audible rales rhonchi or wheezing was noted. CARDIOVASCULAR: There is a regular rate and rhythm without any murmurs gallops or rubs. ABDOMEN: Soft and nontender with normal bowel sounds. SKIN: Skin is clear with no lesions or rashes and otherwise unremarkable. NEUROLOGIC: Patient is alert and oriented x3. Cranial nerves II through XII are grossly intact. Motor and sensory are also intact. Normal speech, volume and content. Symmetrical smile. MUSCULOSKELETAL: Normal extremities with adequate strength and full range of motion. LYMPHATICS: No significant lymphadenopathy is noted PSYCHIATRIC: Patient is having suicidal ideations because he states he has no place to live Course Vital Signs 12/02/21 19:43 Temperature 98 F Pulse Rate 120 H Respiratory 19 Rate Blood Pressure 132/80 O2 Sat by Pulse 94 L Oximetry Disposition Clinical Impression: Situational depression Disposition: HOME SELF-CARE Condition: Good Instructions (If sedation given, give patient instructions): Depression (ED) Is patient prescribed a controlled substance at d/c from ED?: No Referrals: Becky Cristobal MD [Primary Care Provider] - 1-2 days Time of Disposition: 20:36
== END 2021-12-02 20:54 | disposition home or self-care (01) ==
LOC: EC 19:42
DX: F43.21 Adjustment disorder with depressed mood (principal); I10 Essential (primary) hypertension; Z82.49 Family history of ischemic heart disease and other diseases of the circulatory system; F17.200 Nicotine dependence, unspecified, uncomplicated
CPT/HCPCS: 82075; 99284

== ENCOUNTER 2021-12-02 22:46 | Emergency (ER) | payer OTHER ==
[2021-12-02 23:25] LABS: Basophils # (A) 0.1 k/uL (0-0.2); Basophils % (A) 1 %; Eosinophils # (A) 0.3 k/uL (0-0.7); Eosinophils % (A) 3 %; HCT 44.5 % (39.0-53.0); HGB 15.4 gm/dL (13.0-17.5); Lymphocytes # (A) 2.6 k/uL (1.0-4.8); Lymphocytes % (A) 21 %; MCH 31.2 pg (25.0-35.0); MCHC 34.6 g/dL (31.0-37.0); MCV 90.2 fL (80.0-100.0); Monocytes # (A) 0.9 k/uL (0-1.0); Monocytes % (A) 7 %; Neutrophils # (A) 8.6 k/uL (1.3-7.7); Neutrophils % (A) 67 %; Platelet Count 243 k/uL (150-450); RBC 4.93 m/uL (4.30-5.90); RDW 13.5 % (11.5-15.5); WBC 12.9 k/uL (3.8-10.6)
[2021-12-03 00:01] LABS: ALT 18 U/L (4-49); AST 21 U/L (17-59); African American GFR (CKD) >90 (>60 ml/min/1.73 sqM); Albumin 4.6 g/dL (3.5-5.0); Alkaline Phosphatase 55 U/L (38-126); Anion Gap 11 mmol/L; Blood Urea Nitrogen 18 mg/dL (9-20); Calcium 9.5 mg/dL (8.4-10.2); Carbon Dioxide 25 mmol/L (22-30); Chloride 100 mmol/L (98-107); Glucose 90 mg/dL (74-99); Non-African American GFR(CKD) >90 (>60 ml/min/1.73 sqM); Potassium 4.2 mmol/L (3.5-5.1); Sodium 136 mmol/L (137-145); Total Bilirubin 0.4 mg/dL (0.2-1.3); Total Protein 7.2 g/dL (6.3-8.2)
--- NOTE | 2021-12-03 08:04 | ED ---
Psych HPI - General Source: patient, police Mode of arrival: ambulatory Limitations: no limitations - History of Present Illness MD Complaint: suicidal ideation -: days(s) Associated Psychiatric Symptoms: depression, suicidal ideation History of same: Yes Improves With: none Worsens With: none Associated Symptoms: denies other symptoms <Jhony Roblero - Last Filed: 12/03/21 08:02> <Bird Zhao - Last Filed: 12/03/21 20:39> - General Chief Complaint: Psychiatric Symptoms Stated Complaint: Mental health Time Seen by Provider: 12/03/21 00:48 - History of Present Illness Initial Comments: This patient is 31-year-old homeless man brought to have psychiatric evaluation by police. Patient reportedly had called them and made suicidal threat. (Jhony Roblero) - Related Data Home Medications Medication Instructions Recorded Confirmed Testosterone Cypionate 100 mg IM Q14D 11/16/21 12/03/21 [Depo-Testosterone] Previous Rx's Medication Instructions Recorded DULoxetine HCL [Cymbalta] 60 mg PO BID 30 Days cap 12/02/21 Nicotine 14Mg/24Hr Patch [Habitrol] 1 patch TRANSDERM DAILY 14 Days 12/02/21 patch clonazePAM [KlonoPIN] 0.5 mg PO TID #0 tab 12/02/21 fluPHENAZine decanoate [Prolixin 50 mg IM Q10D #1 ml 12/02/21 Decanoate] traZODone HCL [Desyrel] 100 mg PO HS 30 Days tab 12/02/21 Allergies Allergy/AdvReac Type Severity Reaction Status Date / Time No Known Allergies Allergy Verified 12/03/21 13:33 Review of Systems ROS Other: All systems not noted in ROS Statement are negative. Constitutional: Denies: fever, chills Respiratory: Denies: cough, dyspnea Cardiovascular: Denies: chest pain, palpitations Gastrointestinal: Denies: abdominal pain, vomiting, diarrhea Genitourinary: Denies: dysuria, hematuria Musculoskeletal: Denies: back pain Neurological: Denies: headache, weakness Psychiatric: Reports: depression, suicidal thoughts. Denies: anxiety, auditory hallucinations, visual hallucinations, homicidal thoughts <Jhony Roblero - Last Filed: 12/03/21 08:02> ROS Other: All systems not noted in ROS Statement are negative. <Bird Zhao - Last Filed: 12/03/21 20:39> ROS Statement: Those systems with pertinent positive or pertinent negative responses have been documented in the HPI. Past Medical History Past Medical History: Hypertension Additional Past Medical History / Comment(s): Severe anxiety, migraines, chronic back pain, difficulty with focusing attention. History of Any Multi-Drug Resistant Organisms: None Reported Past Surgical History: Orthopedic Surgery Additional Past Surgical History / Comment(s): Left wrist open reduction internal fixation, lipoma removed from right posterior shoulder. Past Anesthesia/Blood Transfusion Reactions: No Reported Reaction Past Psychological History: ADD/ADHD, Anxiety, Depression, Schizophrenia Smoking Status: Current every day smoker Past Alcohol Use History: None Reported Past Drug Use History: None Reported - Past Family History Father Family Medical History: Cancer, CVA/TIA, Myocardial Infarction ([place]) Additional Family Medical History / Comment(s): Father is alive at age 58. Patient states he has a rare cancer and undergoing chemotherapy. Mother Family Medical History: Coronary Artery Disease (CAD), Hypertension, Syncope Additional Family Medical History / Comment(s): Mother is alive at age 54 and also has history of anxiety and depression. Sister(s) History Unknown: Yes Family Medical History: No Reported History <Jhony Roblero - Last Filed: 12/03/21 08:02> General Exam General appearance: alert, in no apparent distress Head exam: Present: atraumatic, normocephalic Eye exam: Present: normal appearance. Absent: scleral icterus, conjunctival injection ENT exam: Present: normal oropharynx Neck exam: Present: normal inspection Respiratory exam: Present: normal lung sounds bilaterally. Absent: respiratory distress, wheezes, rales, rhonchi, stridor Cardiovascular Exam: Present: regular rate, normal rhythm, normal heart sounds. Absent: systolic murmur, diastolic murmur, rubs, gallop GI/Abdominal exam: Present: soft. Absent: distended, tenderness, guarding, rebound, rigid, mass Extremities exam: Present: normal inspection, normal capillary refill. Absent: pedal edema, calf tenderness Back exam: Present: normal inspection. Absent: CVA tenderness (R), CVA tenderness (L) Neurological exam: Present: alert, oriented X3 Psychiatric exam: Present: suicidal ideation. Absent: agitated, anxious, flat affect, manic, homicidal ideation Skin exam: Present: warm, dry, intact, normal color. Absent: rash <Jhony Roblero - Last Filed: 12/03/21 08:02> Course Vital Signs 12/02/21 12/03/21 12/03/21 22:46 08:59 12:49 Temperature 98 F 98.0 F Pulse Rate 110 H 93 81 Respiratory 18 16 16 Rate Blood Pressure 135/64 99/62 O2 Sat by Pulse 99 99 97 Oximetry 12/03/21 12/03/21 12/03/21 15:27 16:03 19:01 Temperature Pulse Rate 88 Respiratory 16 16 17 Rate Blood Pressure 101/70 O2 Sat by Pulse 97 Oximetry Medical Decision Making - Lab Data Result diagrams: 12/02/21 23:14 12/02/21 23:14 <Jhony Roblero - Last Filed: 12/03/21 08:02> - Lab Data Result diagrams: 12/03/21 15:27 12/03/21 15:27 <Bird Zhao - Last Filed: 12/03/21 20:39> - Medical Decision Making 31-year-old male was brought in under petition for psychiatric evaluation. He was medically cleared and evaluated by EPS. He was felt to be safe for discharge. He is stable for discharge at this time. (Bird Zhao) - Lab Data Lab Results 12/02/21 12/02/21 12/03/21 Range/Units 23:14 23:14 00:47 WBC 12.9 H (3.8-10.6) k/uL RBC 4.93 (4.30-5.90) m/uL Hgb 15.4 (13.0-17.5) gm/dL Hct 44.5 (39.0-53.0) % MCV 90.2 (80.0-100.0) fL MCH 31.2 (25.0-35.0) pg MCHC 34.6 (31.0-37.0) g/dL RDW 13.5 (11.5-15.5) % Plt Count 243 (150-450) k/uL MPV 8.0 Neutrophils % 67 % Lymphocytes % 21 % Monocytes % 7 % Eosinophils % 3 % Basophils % 1 % Neutrophils # 8.6 H (1.3-7.7) k/uL Lymphocytes # 2.6 (1.0-4.8) k/uL Monocytes # 0.9 (0-1.0) k/uL Eosinophils # 0.3 (0-0.7) k/uL Basophils # 0.1 (0-0.2) k/uL Sodium 136 L (137-145) mmol/L Potassium 4.2 (3.5-5.1) mmol/L Chloride 100 (98-107) mmol/L Carbon Dioxide 25 (22-30) mmol/L Anion Gap 11 mmol/L BUN 18 (9-20) mg/dL Creatinine 1.02 (0.66-1.25) mg/dL Est GFR (CKD-EPI)AfAm >90 (>60 ml/min/1.73 sqM) Est GFR (CKD-EPI)NonAf >90 (>60 ml/min/1.73 sqM) Glucose 90 (74-99) mg/dL Calcium 9.5 (8.4-10.2) mg/dL Total Bilirubin 0.4 (0.2-1.3) mg/dL AST 21 (17-59) U/L ALT 18 (4-49) U/L Alkaline Phosphatase 55 (38-126) U/L Total Protein 7.2 (6.3-8.2) g/dL Albumin 4.6 (3.5-5.0) g/dL Urine Color Urine Appearance (Clear) Urine pH (5.0-8.0) Ur Specific [place] (1.001-1.035) Urine Protein (Negative) Urine Glucose (UA) (Negative) Urine Ketones (Negative) Urine Blood (Negative) Urine Nitrite (Negative) Urine Bilirubin (Negative) Urine Urobilinogen (<2.0) mg/dL Ur Leukocyte Esterase (Negative) Urine RBC (0-5) /hpf Urine WBC (0-5) /hpf Ur Squamous Epith Cells (0-4) /hpf Hyaline Casts (0-2) /lpf Urine Mucus (None) /hpf Urine Opiates Screen (NotDetected) Ur Oxycodone Screen (NotDetected) Urine Methadone Screen (NotDetected) Ur Propoxyphene Screen (NotDetected) Ur Barbiturates Screen (NotDetected) U Tricyclic Antidepress (NotDetected) Ur Phencyclidine Scrn (NotDetected) Ur Amphetamines Screen (NotDetected) U Methamphetamines Scrn (NotDetected) U Benzodiazepines Scrn (NotDetected) Urine Cocaine Screen (NotDetected) U Marijuana (THC) Screen (NotDetected) Coronavirus (PCR) Not Detected (Not Detectd) 12/03/21 12/03/21 12/03/21 Range/Units 15:27 15:27 15:27 WBC 7.3 (3.8-10.6) k/uL RBC 5.02 (4.30-5.90) m/uL Hgb 15.1 (13.0-17.5) gm/dL Hct 45.2 (39.0-53.0) % MCV 90.0 (80.0-100.0) fL MCH 30.2 (25.0-35.0) pg MCHC 33.5 (31.0-37.0) g/dL RDW 13.2 (11.5-15.5) % Plt Count 237 (150-450) k/uL MPV 8.2 Neutrophils % % Lymphocytes % % Monocytes % % Eosinophils % % Basophils % % Neutrophils # (1.3-7.7) k/uL Lymphocytes # (1.0-4.8) k/uL Monocytes # (0-1.0) k/uL Eosinophils # (0-0.7) k/uL Basophils # (0-0.2) k/uL Sodium 136 L (137-145) mmol/L Potassium 4.2 (3.5-5.1) mmol/L Chloride 101 (98-107) mmol/L Carbon Dioxide 27 (22-30) mmol/L Anion Gap 8 mmol/L BUN 16 (9-20) mg/dL Creatinine 0.89 (0.66-1.25) mg/dL Est GFR (CKD-EPI)AfAm >90 (>60 ml/min/1.73 sqM) Est GFR (CKD-EPI)NonAf >90 (>60 ml/min/1.73 sqM) Glucose 97 (74-99) mg/dL Calcium 9.0 (8.4-10.2) mg/dL Total Bilirubin 0.4 (0.2-1.3) mg/dL AST 22 (17-59) U/L ALT 17 (4-49) U/L Alkaline Phosphatase 49 (38-126) U/L Total Protein 6.8 (6.3-8.2) g/dL Albumin 4.3 (3.5-5.0) g/dL Urine Color Yellow Urine Appearance Cloudy (Clear) Urine pH 5.5 (5.0-8.0) Ur Specific [place] 1.027 (1.001-1.035) Urine Protein Trace H (Negative) Urine Glucose (UA) Negative (Negative) Urine Ketones Trace H (Negative) Urine Blood Negative (Negative) Urine Nitrite Negative (Negative) Urine Bilirubin Negative (Negative) Urine Urobilinogen <2.0 (<2.0) mg/dL Ur Leukocyte Esterase Negative (Negative) Urine RBC 1 (0-5) /hpf Urine WBC 4 (0-5) /hpf Ur Squamous Epith Cells <1 (0-4) /hpf Hyaline Casts 3 H (0-2) /lpf Urine Mucus Many H (None) /hpf Urine Opiates Screen (NotDetected) Ur Oxycodone Screen (NotDetected) Urine Methadone Screen (NotDetected) Ur Propoxyphene Screen (NotDetected) Ur Barbiturates Screen (NotDetected) U Tricyclic Antidepress (NotDetected) Ur Phencyclidine Scrn (NotDetected) Ur Amphetamines Screen (NotDetected) U Methamphetamines Scrn (NotDetected) U Benzodiazepines Scrn (NotDetected) Urine Cocaine Screen (NotDetected) U Marijuana (THC) Screen (NotDetected) Coronavirus (PCR) (Not Detectd) 12/03/21 12/03/21 Range/Units 15:27 15:35 WBC (3.8-10.6) k/uL RBC (4.30-5.90) m/uL Hgb (13.0-17.5) gm/dL Hct (39.0-53.0) % MCV (80.0-100.0) fL MCH (25.0-35.0) pg MCHC (31.0-37.0) g/dL RDW (11.5-15.5) % Plt Count (150-450) k/uL MPV Neutrophils % % Lymphocytes % % Monocytes % % Eosinophils % % Basophils % % Neutrophils # (1.3-7.7) k/uL Lymphocytes # (1.0-4.8) k/uL Monocytes # (0-1.0) k/uL Eosinophils # (0-0.7) k/uL Basophils # (0-0.2) k/uL Sodium (137-145) mmol/L Potassium (3.5-5.1) mmol/L Chloride (98-107) mmol/L Carbon Dioxide (22-30) mmol/L Anion Gap mmol/L BUN (9-20) mg/dL Creatinine (0.66-1.25) mg/dL Est GFR (CKD-EPI)AfAm (>60 ml/min/1.73 sqM) Est GFR (CKD-EPI)NonAf (>60 ml/min/1.73 sqM) Glucose (74-99) mg/dL Calcium (8.4-10.2) mg/dL Total Bilirubin (0.2-1.3) mg/dL AST (17-59) U/L ALT (4-49) U/L Alkaline Phosphatase (38-126) U/L Total Protein (6.3-8.2) g/dL Albumin (3.5-5.0) g/dL Urine Color Urine Appearance (Clear) Urine pH (5.0-8.0) Ur Specific [place] (1.001-1.035) Urine Protein (Negative) Urine Glucose (UA) (Negative) Urine Ketones (Negative) Urine Blood (Negative) Urine Nitrite (Negative) Urine Bilirubin (Negative) Urine Urobilinogen (<2.0) mg/dL Ur Leukocyte Esterase (Negative) Urine RBC (0-5) /hpf Urine WBC (0-5) /hpf Ur Squamous Epith Cells (0-4) /hpf Hyaline Casts (0-2) /lpf Urine Mucus (None) /hpf Urine Opiates Screen Not Detected (NotDetected) Ur Oxycodone Screen Not Detected (NotDetected) Urine Methadone Screen Not Detected (NotDetected) Ur Propoxyphene Screen Not Detected (NotDetected) Ur Barbiturates Screen Not Detected (NotDetected) U Tricyclic Antidepress Not Detected (NotDetected) Ur Phencyclidine Scrn Not Detected (NotDetected) Ur Amphetamines Screen Not Detected (NotDetected) U Methamphetamines Scrn Not Detected (NotDetected) U Benzodiazepines Scrn Not Detected (NotDetected) Urine Cocaine Screen Not Detected (NotDetected) U Marijuana (THC) Screen Detected H (NotDetected) Coronavirus (PCR) Not Detected (Not Detectd) Disposition <Jhony Roblero - Last Filed: 12/03/21 08:02> Is patient prescribed a controlled substance at d/c from ED?: No Time of Disposition: 20:38 <Bird Zhao - Last Filed: 12/03/21 20:39> Clinical Impression: Situational depression Disposition: HOME SELF-CARE Condition: Fair Instructions (If sedation given, give patient instructions): Depression (ED) Additional Instructions: Please follow up with community mental health. Referrals: Becky Cristobal MD [Primary Care Provider] - 1-2 days
[2021-12-03] MEDS ORDERED: NICOTINE 14MG/24HR PATCH TRANSDERM STA (12:23)
[2021-12-03 12:53] VITALS: TEMP 98
[2021-12-03 15:40] LABS: HCT 45.2 % (39.0-53.0); HGB 15.1 gm/dL (13.0-17.5); MCH 30.2 pg (25.0-35.0); MCHC 33.5 g/dL (31.0-37.0); Mean Platelet Volume 8.2; Platelet Count 237 k/uL (150-450); RBC 5.02 m/uL (4.30-5.90); RDW 13.2 % (11.5-15.5); WBC 7.3 k/uL (3.8-10.6)
[2021-12-03 16:03] LABS: Amphetamine Screen,Urine Not Detected (NotDetected); Barbiturate Screen,Urine Not Detected (NotDetected); Benzodiazepines Screen,Urine Not Detected (NotDetected); Cocaine Screen,Urine Not Detected (NotDetected); Methadone Screen, Urine Not Detected (NotDetected); Opiate Screen,Urine Not Detected (NotDetected); Oxycodone Screen, Urine Not Detected (NotDetected); Phencyclidine Screen,Urine Not Detected (NotDetected); Tricyclic Antidepressant,Urine Not Detected (NotDetected); Urn Cannabinoid Scrn Detected (NotDetected)
[2021-12-03 16:23] LABS: Appearance,Urine Cloudy (Clear); Bilirubin,Urine Negative (Negative); Blood,Urine Negative (Negative); Color,Urine Yellow; Glucose,Urine (UA) Negative (Negative); Hyaline Casts,Urine 3 /lpf (0-2); Ketones,Urine Trace (Negative); Leukocyte Esterase,Urine Negative (Negative); Mucus,Urine Many /hpf; Nitrite,Urine Negative (Negative); PH, Urine 5.5 (5.0-8.0); Protein,Urine Trace (Negative); RBC,Urine 1 /hpf (0-5); Specific Gravity,Urine 1.027 (1.001-1.035); Squamous Epithelial Cell,Urine <1 /hpf (0-4); Urobilinogen,Urine <2.0 mg/dL (<2.0); WBC,Urine 4 /hpf (0-5)
[2021-12-03 16:37] LABS: ALT 17 U/L (4-49); AST 22 U/L (17-59); African American GFR (CKD) >90 (>60 ml/min/1.73 sqM); Albumin 4.3 g/dL (3.5-5.0); Alkaline Phosphatase 49 U/L (38-126); Anion Gap 8 mmol/L; Blood Urea Nitrogen 16 mg/dL (9-20); Carbon Dioxide 27 mmol/L (22-30); Chloride 101 mmol/L (98-107); Glucose 97 mg/dL (74-99); Non-African American GFR(CKD) >90 (>60 ml/min/1.73 sqM); Potassium 4.2 mmol/L (3.5-5.1); Sodium 136 mmol/L (137-145); Total Bilirubin 0.4 mg/dL (0.2-1.3); Total Protein 6.8 g/dL (6.3-8.2)
[2021-12-03 21:07] VITALS: BP 142/86; PULSE 82; RESP 16
== END 2021-12-03 21:30 | disposition home or self-care (01) ==
LOC: EC 22:46
DX: F43.21 Adjustment disorder with depressed mood (principal); R45.851 Suicidal ideations; F17.200 Nicotine dependence, unspecified, uncomplicated; I10 Essential (primary) hypertension; Z20.822 Contact with and (suspected) exposure to COVID-19
CPT/HCPCS: 82075; 36415 ×2; 80053 ×2; 85025; 85027; 81001; 80306; 87635; 99285; S4990

== ENCOUNTER 2021-12-04 04:07 | Inpatient (IN) | payer MEDICAID, OTHER ==
--- NOTE | 2021-12-04 07:04 | ED ---
Psych HPI - General Chief Complaint: Psychiatric Symptoms Stated Complaint: Mental Health Time Seen by Provider: 12/04/21 06:51 Source: patient, RN notes reviewed Mode of arrival: ambulatory Limitations: no limitations - History of Present Illness Initial Comments: This a 31-year-old male presents emergency Department with chief complaint of depression, suicidal ideation. Patient states he's been having increasing depression, suicidal ideation thoughts. Patient states he tried to hang himself that she but states that she ripped. There is no neck pain. Patient denies any recent alcohol or drug use. Patient states she was admitted to [facility]. Patient denies any chest pain back pain or any other complaints. - Related Data Home Medications Medication Instructions Recorded Confirmed Testosterone Cypionate 100 mg IM Q14D 11/16/21 12/03/21 [Depo-Testosterone] Previous Rx's Medication Instructions Recorded DULoxetine HCL [Cymbalta] 60 mg PO BID 30 Days cap 12/02/21 Nicotine 14Mg/24Hr Patch [Habitrol] 1 patch TRANSDERM DAILY 14 Days 12/02/21 patch clonazePAM [KlonoPIN] 0.5 mg PO TID #0 tab 12/02/21 fluPHENAZine decanoate [Prolixin 50 mg IM Q10D #1 ml 12/02/21 Decanoate] traZODone HCL [Desyrel] 100 mg PO HS 30 Days tab 12/02/21 Allergies Allergy/AdvReac Type Severity Reaction Status Date / Time No Known Allergies Allergy Verified 12/03/21 13:33 Review of Systems ROS Statement: Those systems with pertinent positive or pertinent negative responses have been documented in the HPI. ROS Other: All systems not noted in ROS Statement are negative. Past Medical History Past Medical History: Hypertension Additional Past Medical History / Comment(s): Severe anxiety, migraines, chronic back pain, difficulty with focusing attention. History of Any Multi-Drug Resistant Organisms: None Reported Past Surgical History: Orthopedic Surgery Additional Past Surgical History / Comment(s): Left wrist open reduction internal fixation, lipoma removed from right posterior shoulder. Past Anesthesia/Blood Transfusion Reactions: No Reported Reaction Past Psychological History: ADD/ADHD, Anxiety, Depression, Schizophrenia Smoking Status: Current every day smoker Past Alcohol Use History: None Reported Past Drug Use History: None Reported - Past Family History Father Family Medical History: Cancer, CVA/TIA, Myocardial Infarction ([place]) Additional Family Medical History / Comment(s): Father is alive at age 58. Patient states he has a rare cancer and undergoing chemotherapy. Mother Family Medical History: Coronary Artery Disease (CAD), Hypertension, Syncope Additional Family Medical History / Comment(s): Mother is alive at age 54 and also has history of anxiety and depression. Sister(s) History Unknown: Yes Family Medical History: No Reported History General Exam Limitations: no limitations General appearance: alert, in no apparent distress Head exam: Present: atraumatic, normocephalic, normal inspection Eye exam: Present: normal appearance, PERRL, EOMI. Absent: scleral icterus, conjunctival injection, periorbital swelling ENT exam: Present: normal exam, normal oropharynx, mucous membranes moist Neck exam: Present: normal inspection, full ROM. Absent: tenderness, meningismus, lymphadenopathy Respiratory exam: Present: normal lung sounds bilaterally. Absent: respiratory distress, wheezes, rales, rhonchi, stridor Cardiovascular Exam: Present: regular rate, normal rhythm, normal heart sounds. Absent: systolic murmur, diastolic murmur, rubs, gallop, clicks GI/Abdominal exam: Present: soft, normal bowel sounds. Absent: distended, tenderness, guarding, rebound, rigid Extremities exam: Present: normal inspection, full ROM, normal capillary refill. Absent: tenderness, pedal edema, joint swelling, calf tenderness Neurological exam: Present: alert Psychiatric exam: Present: depressed Skin exam: Present: warm, dry, intact, normal color. Absent: rash Course Vital Signs 12/04/21 04:28 Temperature 98.1 F Pulse Rate 116 H Respiratory 18 Rate Blood Pressure 112/69 O2 Sat by Pulse 95 Oximetry Medical Decision Making - Medical Decision Making Patient was grabbed by EPS with admitted for psychiatric treatment - Lab Data Lab Results 12/04/21 Range/Units 08:00 Urine Opiates Screen Not Detected (NotDetected) Ur Oxycodone Screen Not Detected (NotDetected) Urine Methadone Screen Not Detected (NotDetected) Ur Propoxyphene Screen Not Detected (NotDetected) Ur Barbiturates Screen Not Detected (NotDetected) U Tricyclic Antidepress Not Detected (NotDetected) Ur Phencyclidine Scrn Not Detected (NotDetected) Ur Amphetamines Screen Not Detected (NotDetected) U Methamphetamines Scrn Not Detected (NotDetected) U Benzodiazepines Scrn Detected H (NotDetected) Urine Cocaine Screen Not Detected (NotDetected) U Marijuana (THC) Screen Detected H (NotDetected) Disposition Clinical Impression: Suicidal ideation, Depression Disposition: TRANSFER TO PSYCH HOSP/UNIT Condition: Stable Referrals: Becky Cristobal MD [Primary Care Provider] - 1-2 days Time of Disposition: 11:52
[2021-12-04 08:36] LABS: Amphetamine Screen,Urine Not Detected (NotDetected); Barbiturate Screen,Urine Not Detected (NotDetected); Benzodiazepines Screen,Urine Detected (NotDetected); Cocaine Screen,Urine Not Detected (NotDetected); Methadone Screen, Urine Not Detected (NotDetected); Opiate Screen,Urine Not Detected (NotDetected); Oxycodone Screen, Urine Not Detected (NotDetected); Phencyclidine Screen,Urine Not Detected (NotDetected); Tricyclic Antidepressant,Urine Not Detected (NotDetected); Urn Cannabinoid Scrn Detected (NotDetected)
[2021-12-04] MEDS ORDERED: LORazepam 1 MG TAB PO PRN (14:12)
[2021-12-04] MEDS ORDERED: HALOPERIDOL LACTATE 5 MG/ML 1 ML VIAL IM PRN (14:12)
[2021-12-04] MEDS ORDERED: MAGNESIUM HYDROXIDE 2,400 MG/10 ML CUP PO PRN (14:12)
[2021-12-04] MEDS ORDERED: MAG HYDROX/AL HYDROX/SIMETH 30 ML CUP PO PRN (14:12)
[2021-12-04] MEDS ORDERED: ACETAMINOPHEN TAB 325 MG TAB PO PRN (14:12)
[2021-12-04] MEDS ORDERED: TESTOSTERONE CYPIONATE 200 MG/ML 1ML VIAL IM SCH (14:15)
[2021-12-04] MEDS ORDERED: LORazepam 1 MG/0.5 ML VIAL IM PRN (14:16)
[2021-12-04] MEDS ORDERED: haloperidoL 5 MG TAB PO PRN (14:17)
[2021-12-04 14:38] VITALS: RESP 16
[2021-12-04] MEDS: clonazePAM 0.5 MG TAB PO SCH ×2 (17:07→20:18)
[2021-12-04] MEDS: traZODone HCL 100 MG TAB PO SCH (20:18)
[2021-12-04] MEDS: DULoxetine HCL 60 MG CAPSULE.DR PO SCH (20:18)
[2021-12-05 08:02] LABS: Basophils # (A) 0.1 k/uL (0-0.2); Basophils % (A) 1 %; Eosinophils # (A) 0.2 k/uL (0-0.7); Eosinophils % (A) 3 %; HCT 46.8 % (39.0-53.0); HGB 15.3 gm/dL (13.0-17.5); Lymphocytes # (A) 2.1 k/uL (1.0-4.8); Lymphocytes % (A) 26 %; MCH 30.2 pg (25.0-35.0); MCHC 32.7 g/dL (31.0-37.0); MCV 92.1 fL (80.0-100.0); Mean Platelet Volume 7.9; Monocytes # (A) 0.6 k/uL (0-1.0); Monocytes % (A) 7 %; Neutrophils % (A) 62 %; Platelet Count 192 k/uL (150-450); RBC 5.08 m/uL (4.30-5.90); RDW 13.3 % (11.5-15.5); WBC 8.1 k/uL (3.8-10.6)
[2021-12-05 08:22] LABS: ALT 18 U/L (4-49); AST 20 U/L (17-59); African American GFR (CKD) >90 (>60 ml/min/1.73 sqM); Albumin 4.2 g/dL (3.5-5.0); Alkaline Phosphatase 54 U/L (38-126); Anion Gap 6 mmol/L; Blood Urea Nitrogen 14 mg/dL (9-20); Calcium 9.2 mg/dL (8.4-10.2); Carbon Dioxide 28 mmol/L (22-30); Chloride 105 mmol/L (98-107); Glucose 91 mg/dL (74-99); Non-African American GFR(CKD) >90 (>60 ml/min/1.73 sqM); Potassium 4.6 mmol/L (3.5-5.1); Sodium 139 mmol/L (137-145); Total Bilirubin 0.4 mg/dL (0.2-1.3); Total Protein 6.8 g/dL (6.3-8.2)
[2021-12-05] MEDS: clonazePAM 0.5 MG TAB PO SCH ×2 (08:31→20:35)
[2021-12-05] MEDS: DULoxetine HCL 60 MG CAPSULE.DR PO SCH ×2 (08:31→20:35)
[2021-12-05] MEDS: NICOTINE 14MG/24HR PATCH TRANSDERM SCH (08:31)
[2021-12-05 10:45] LABS: Chol/HDL Ratio 5.29 Ratio; LDL Cholesterol,Calculated 102.9 mg/dL (0.0-131.0)
[2021-12-05] MEDS ORDERED: hydrOXYzine pamoate 25 MG CAP PO PRN (11:25)
--- NOTE | 2021-12-05 12:09 | P.HP ---
Psychiatric H&P - . H&P Date: 12/05/21 History & Physical: Allergies Allergy/AdvReac Type Severity Reaction Status Date / Time No Known Allergies Allergy Verified 12/04/21 12:37 Vital Signs Temp 97.7 F 12/04/21 14:11 Pulse 114 H 12/04/21 14:11 Resp 16 12/04/21 14:11 BP 113/57 12/04/21 14:11 Pulse Ox 96 12/04/21 14:11 FiO2 Intake & Output 12/04/21 12/05/21 12/05/21 18:59 06:59 18:59 Weight 90.3 kg Laboratory Last Values WBC 8.1 k/uL (3.8-10.6) 12/05/21 07:32 RBC 5.08 m/uL (4.30-5.90) 12/05/21 07:32 Hgb 15.3 gm/dL (13.0-17.5) 12/05/21 07:32 Hct 46.8 % (39.0-53.0) 12/05/21 07:32 MCV 92.1 fL (80.0-100.0) 12/05/21 07:32 MCH 30.2 pg (25.0-35.0) 12/05/21 07:32 MCHC 32.7 g/dL (31.0-37.0) 12/05/21 07:32 RDW 13.3 % (11.5-15.5) 12/05/21 07:32 Plt Count 192 k/uL (150-450) 12/05/21 07:32 MPV 7.9 12/05/21 07:32 Neutrophils % 62 % 12/05/21 07:32 Lymphocytes % 26 % 12/05/21 07:32 Monocytes % 7 % 12/05/21 07:32 Eosinophils % 3 % 12/05/21 07:32 Basophils % 1 % 12/05/21 07:32 Neutrophils # 5.0 k/uL (1.3-7.7) 12/05/21 07:32 Lymphocytes # 2.1 k/uL (1.0-4.8) 12/05/21 07:32 Monocytes # 0.6 k/uL (0-1.0) 12/05/21 07:32 Eosinophils # 0.2 k/uL (0-0.7) 12/05/21 07:32 Basophils # 0.1 k/uL (0-0.2) 12/05/21 07:32 Sodium 139 mmol/L (137-145) 12/05/21 07:32 Potassium 4.6 mmol/L (3.5-5.1) 12/05/21 07:32 Chloride 105 mmol/L (98-107) 12/05/21 07:32 Carbon Dioxide 28 mmol/L (22-30) 12/05/21 07:32 Anion Gap 6 mmol/L 12/05/21 07:32 BUN 14 mg/dL (9-20) 12/05/21 07:32 Creatinine 1.03 mg/dL (0.66-1.25) 12/05/21 07:32 Est GFR (CKD-EPI)AfAm >90 (>60 ml/min/1.73 sqM) 12/05/21 07:32 Est GFR (CKD-EPI)NonAf >90 (>60 ml/min/1.73 sqM) 12/05/21 07:32 Glucose 91 mg/dL (74-99) 12/05/21 07:[address] Glu mg/dL 99 12/05/21 07:32 Hemoglobin A1c 5.1 % (0.0-6.0) 12/05/21 07:32 Calcium 9.2 mg/dL (8.4-10.2) 12/05/21 07:32 Total Bilirubin 0.4 mg/dL (0.2-1.3) 12/05/21 07:32 AST 20 U/L (17-59) 12/05/21 07:32 ALT 18 U/L (4-49) 12/05/21 07:32 Alkaline Phosphatase 54 U/L (38-126) 12/05/21 07:32 Total Protein 6.8 g/dL (6.3-8.2) 12/05/21 07:32 Albumin 4.2 g/dL (3.5-5.0) 12/05/21 07:32 Triglycerides 106.00 mg/dL (0.00-149.00) 12/05/21 07:32 Cholesterol 153.00 mg/dL (0.00-200.00) 12/05/21 07:32 LDL Cholesterol, Calc 102.9 mg/dL (0.0-131.0) 12/05/21 07:32 VLDL Cholesterol, Calc 21.20 mg/dL (5.00-40.00) 12/05/21 07:32 HDL Cholesterol 28.90 mg/dL (40.00-60.00) L 12/05/21 07:32 Cholesterol/HDL Ratio 5.29 Ratio 12/05/21 07:32 TSH 0.403 mIU/L (0.465-4.680) L 12/05/21 07:32 Urine Opiates Screen Not Detected (NotDetected) 12/04/21 08:00 Ur Oxycodone Screen Not Detected (NotDetected) 12/04/21 08:00 Urine Methadone Screen Not Detected (NotDetected) 12/04/21 08:00 Ur Propoxyphene Screen Not Detected (NotDetected) 12/04/21 08:00 Ur Barbiturates Screen Not Detected (NotDetected) 12/04/21 08:00 U Tricyclic Antidepress Not Detected (NotDetected) 12/04/21 08:00 Ur Phencyclidine Scrn Not Detected (NotDetected) 12/04/21 08:00 Ur Amphetamines Screen Not Detected (NotDetected) 12/04/21 08:00 U Methamphetamines Scrn Not Detected (NotDetected) 12/04/21 08:00 U Benzodiazepines Scrn Detected (NotDetected) H 12/04/21 08:00 Urine Cocaine Screen Not Detected (NotDetected) 12/04/21 08:00 U Marijuana (THC) Screen Detected (NotDetected) H 12/04/21 08:00 Coronavirus (PCR) Not Detected (Not Detectd) 12/04/21 12:34 12/05/21 12:07 IDENTIFYING DATA: Patient is a , unemployed, homeless, 31-year-old male who presents to the hospital after an attempted suicide by hanging. HPI: Patient presented to the hospital on 12/04/2021, after multiple visits to the emergency department over this past weekend. Reportedly, the patient attempts to hang himself in the park across the street with a bedsheet. She ripped the patient presents with emergency department. The patient was initially discharged from the psychiatric unit on 3W this past sunday. He was supposed to go to a facility in [place] that was living that with each and life skills, job skills and even provide him with a small salary. The patient currently states that no one told him of this despite him signing the paperwork at discharge informing him of this information. He reports that he called these facilities received no answer. The patient was discharged from the hospital several times however would contact the police and stated that he is suicidal, then become position by the police, then assessed by EPS and later report he is not suicidal. Currently on presentation on the psychiatric unit, the patient is denying any suicidal or homicidal ideation, intention, and/or plan. The patient expresses that he has no place to live. He reports that he just feels "very down and depressed." Despite this, the patient is not reporting any changes in his appetite, issues with sleep, or any suicidal or homicidal ideation. The patient does express hopelessness and helplessness. When confronted that he was set up with an appropriate aftercare plan, the patient vehemently denies this and states that he was not set up with such a plan despite having signed on to this plan during his last discharge. The patient did test positive for marijuana and benzodiazepines on admission. PAST PSYCHIATRIC HISTORY: Patient states that he has a history of psychosis and benzodiazepine abuse.. He has been on numerous psychiatric medications including Abilify, Vistaril, Zoloft, Benadryl, Klonopin, Xanax, Cymbalta, and is on a home regimen of Prolixin Decanoate, Klonopin, Cymbalta, and trazodone. The patient has had numerous psychiatric hospitalizations and was recently discharged from the psychiatric unit on 12/02/2021. The patient is open with [facility] however has been nonadherent with outpatient appointments. Patient has a history of past suicide attempts. PMH: Past Medical History: Hypertension Additional Past Medical History / Comment(s): Severe anxiety, migraines, chronic back pain, difficulty with focusing attention. History of Any Multi-Drug Resistant Organisms: None Reported Past Surgical History: Orthopedic Surgery Additional Past Surgical History / Comment(s): Left wrist open reduction interna l fixation, lipoma removed from right posterior shoulder. Past Anesthesia/Blood Transfusion Reactions: No Reported Reaction Past Psychological History: ADD/ADHD, Anxiety, Depression, Schizophrenia Smoking Status: Current every day smoker Past Alcohol Use History: None Reported Past Drug Use History: None Reported ALLERGIES: NO KNOWN DRUG ALLERGIES CHEMICAL DEPENDENCY HISTORY: The patient has reported history of polysubstance abuse. Although he is denying any substance use, the patient did test positive for marijuana and benzodiazepines. He is chronically prescribed benzodiazepines from a provider in [place]. FAMILY PSYCHIATRIC/SUBSTANCE USE HISTORY: No reported family history. SOCIAL HISTORY: Patient was born and raised in [place], [place]. He attended some college. The patient has been in [facility] and shelter numerous times. He has been. He charged with operating while intoxicated and larceny in the past. He is . He has a guardian. He is homeless. MENTAL STATUS EXAM: General Appearance: Patient appears to be stated age is alert, directable, and attempts to cooperate. Patient appears to have fair hygiene and grooming. Behavior: Patient is lying down in bed without any agitated behavior. Speech: Patient's speech is fluent and nonpressured. Mood/Affect: Patient reports their mood is "sad," affect is incongruent and appears to be euthymic Suicidality/Homicidality: Patient is currently denying any suicidal or homicidal ideation, intention, and/or plan. Perceptions: Patient denies any visual hallucinations and denies any auditory hallucinations Though content/process: There is no evidence of any delusional thought content and thought process is linear and goal-directed. Memory and concentration: AOX3, grossly intact for the purposes of this session. Can spell "WORLD" backwards Judgment and insight: Very poor STRENGTHS/WEAKNESSES: Unable to identify patient's strengths. Weakness is that patient is homeless, has a history of polysubstance abuse, and is nonadherent with treatment. INTELLECT: average IMPRESSIONS: Schizoaffective disorder Nicotine dependence Rule out antisocial personality disorder Rule out malingering -Suspect secondary gain for food and [facility]. Referral for homeless shelters are met with futility as the unit has tried numerous times in the past. He prefers the psychiatric unit. Despite strong endorsement of depression, the patient's affect appears euthymic and he is not endorsing any suicidal or homicidal ideation. He appears to vehemently deny being set up with appropriate after care plans despite him signing off on said plans. Anticipate discharge in 1-2 days. Patient likely exhausted therapeutic benefit from this psychiatric unit and is inconsistent with his presentation and histories. PLAN: -Patient is admitted under voluntary status to [facility]HU for stabilization of psychiatric symptoms and safety. Patient signed adult voluntary form and medication consent and is placed in patient's chart. -Medications : We will decrease the patient's Klonopin to 0.5 mg by mouth twice a day for anxiety Continue Cymbalta 60 mg by mouth twice a day for depression Continue Prolixin decanoate 50 mg IM with his next dose due on 12/09/2021 Continue trazodone 1 mg daily at bedtime for insomnia -Vistaril and Haldol PRN for agitation/aggression -Patient was counselled on substance abuse and desired to cut back on use -Patient was informed of the risks, benefits and side effects of the medication and patient verbally consented to taking the medications. Patient signed med consent form and was placed in chart. -Internal Medicine consult to perform medical evaluation and physical. -NRT - nicotine patch -SW on board for discharge planning. Encourage patient to participate in groups to work on coping skills. 12/05/21 12:07
--- NOTE | 2021-12-05 13:00 | P.HPIM ---
History of Present Illness Patient is admitted for suicidal ideations. Patient refuses nausea vomiting abdominal pain patient is bit tachycardic patient has low TSH is will obtain T4 level tach cardia may be related to his psychiatric issues patient denied any symptoms at this time. REVIEW OF SYSTEMS: CONSTITUTIONAL: No fever, no malaise, no fatigue. HEENT: No recent visual problems or hearing problems. Denied any sore throat. CARDIOVASCULAR: No chest pain, orthopnea, PND, no palpitations, no syncope. PULMONARY: No shortness of breath, no cough, no hemoptysis. GASTROINTESTINAL: No diarrhea, no nausea, no vomiting, no abdominal pain. NEUROLOGICAL: No headaches, no weakness, no numbness. HEMATOLOGICAL: Denies any bleeding or petechiae. GENITOURINARY: Denies any burning micturition, frequency, or urgency. MUSCULOSKELETAL/RHEUMATOLOGICAL: Denies any joint pain, swelling, or any muscle pain. ENDOCRINE: Denies any polyuria or polydipsia. The rest of the 14-point review of systems is negative. PHYSICAL EXAMINATION: GENERAL: The patient is alert and oriented x3, not in any acute distress. Well developed, well nourished. HEENT: Pupils are round and equally reacting to light. EOMI. No scleral icterus. No conjunctival pallor. Normocephalic, atraumatic. No pharyngeal erythema. No thyromegaly. CARDIOVASCULAR: S1 and S2 present. No murmurs, rubs, or gallops. PULMONARY: Chest is clear to auscultation, no wheezing or crackles. ABDOMEN: Soft, nontender, nondistended, normoactive bowel sounds. No palpable organomegaly. MUSCULOSKELETAL: No joint swelling or deformity. EXTREMITIES: No cyanosis, clubbing, or pedal edema. NEUROLOGICAL: Gross neurological examination did not reveal any focal deficits. SKIN: No rashes. Assessment and plan -Tachycardia: Patient does have low TSH, will obtain T4 . -Nicotine use: Counseling was provided -Marijuana use counseling was provided -Depression and suicidal ideation, management as per primary service DVT prophylaxis: Past Medical History Past Medical History: Hypertension Additional Past Medical History / Comment(s): Severe anxiety, migraines, chronic back pain, difficulty with focusing attention. History of Any Multi-Drug Resistant Organisms: None Reported Past Surgical History: Orthopedic Surgery Additional Past Surgical History / Comment(s): Left wrist open reduction internal fixation, lipoma removed from right posterior shoulder. Past Anesthesia/Blood Transfusion Reactions: No Reported Reaction Past Psychological History: ADD/ADHD, Anxiety, Depression, Schizophrenia Smoking Status: Current every day smoker Past Alcohol Use History: None Reported Past Drug Use History: None Reported - Past Family History Father Family Medical History: Cancer, CVA/TIA, Myocardial Infarction ([place]) Additional Family Medical History / Comment(s): Father is alive at age 58. Patient states he has a rare cancer and undergoing chemotherapy. Mother Family Medical History: Coronary Artery Disease (CAD), Hypertension, Syncope Additional Family Medical History / Comment(s): Mother is alive at age 54 and also has history of anxiety and depression. Sister(s) History Unknown: Yes Family Medical History: No Reported History Medications and Allergies Home Medications Medication Instructions Recorded Confirmed Type Testosterone Cypionate 100 mg IM Q14D 11/16/21 12/04/21 History [Depo-Testosterone] DULoxetine HCL [Cymbalta] 60 mg PO BID 30 Days cap 12/02/21 12/04/21 Rx Nicotine 14Mg/24Hr Patch [Habitrol] 1 patch TRANSDERM DAILY 14 Days 12/02/21 12/04/21 Rx patch clonazePAM [KlonoPIN] 0.5 mg PO TID #0 tab 12/02/21 12/04/21 Rx fluPHENAZine decanoate [Prolixin 50 mg IM Q10D #1 ml 12/02/21 12/04/21 Rx Decanoate] traZODone HCL [Desyrel] 100 mg PO HS 30 Days tab 12/02/21 12/04/21 Rx Allergies Allergy/AdvReac Type Severity Reaction Status Date / Time No Known Allergies Allergy Verified 12/04/21 12:37 Physical Exam Vitals: Vital Signs Temp Pulse Resp BP Pulse Ox 12/04/21 14:11 97.7 F 114 H 16 113/57 96 Results CBC & Chem 7: 12/05/21 07:32 12/05/21 07:32 Labs: Abnormal Lab Results - Last 24 Hours (Table) 12/05/21 Range/Units 07:32 HDL Cholesterol 28.90 L (40.00-60.00) mg/dL TSH 0.403 L (0.465-4.680) mIU/L
[2021-12-05 20:35] VITALS: TEMP 97.2
[2021-12-05] MEDS: traZODone HCL 100 MG TAB PO SCH (20:35)
[2021-12-06] MEDS: clonazePAM 0.5 MG TAB PO SCH ×2 (08:26→20:32)
[2021-12-06] MEDS: NICOTINE 14MG/24HR PATCH TRANSDERM SCH (08:26)
[2021-12-06] MEDS: DULoxetine HCL 60 MG CAPSULE.DR PO SCH ×2 (08:26→20:32)
--- NOTE | 2021-12-06 11:52 | P.PN ---
Progress Note - Text Progress Note Date: 12/06/21 Interval History: Patient was seen at bedside and was agreeable to speak with song writer in his room. Currently, the patient is not reporting any suicidal or homicidal ideation, intention, and/or plan. He is not reporting any auditory or visual hallucinations. He is denying any paranoia or other delusions. The patient remains primarily isolative to himself in his room. He is not endorsing any significant issues or concerns except for wanting a thorough discharge plan alejandro or to discharge. However, the patient was reminded that he had a very thorough plan during his last admission. Patient denies that this was the case. He otherwise does not report any issues regarding his sleep or his appetite. He has been adherent with his medications and is not reporting any significant side effects. Mental Status Exam: General Appearance: Patient appears to be stated age is alert, directable, and cooperative. Behavior: Patient is calmly lying down in bed without any agitated behavior. Speech: Patient's speech is fluent and nonpressured. Mood/Affect: Mood is improving mildly, affect is congruent and constricted. Suicidality/Homicidality: Patient denies having any suicidal or homicidal ideation, intention, and/or plan. Perceptions: Patient denies any visual hallucinations and denies any auditory hallucinations Though content/process: There is no evidence of any delusional thought content and thought process is linear and goal-directed. Memory and concentration: AOX3, grossly intact for the purposes of this session Judgment and insight: Improving mildly Vital Signs Temp 97.2 F L 12/05/21 20:34 Pulse 118 H 12/05/21 20:34 Resp 16 12/05/21 20:34 BP 117/70 12/05/21 20:34 Pulse Ox 97 12/05/21 20:34 FiO2 Laboratory Results - Last 24 Hours 12/05/21 07:32 Free T4 0.970 Assessment Schizoaffective disorder Nicotine dependence Rule out antisocial personality disorder Rule out malingering Plan: -Patient continues to meet criteria for inpatient psychiatric admission for symptom stabilization and safety. Patient has signed adult voluntary form and medication consent and was placed in patient's chart. Anticipate discharge tomorrow. -Suspect secondary gain for food and [facility]. Referral for homeless shelters are met with futility as the unit has tried numerous times in the past. He prefers the psychiatric unit. Despite strong endorsement of depression, the patient's affect appears euthymic and he is not endorsing any suicidal or homicidal ideation. He appears to vehemently deny being set up with appropriate after care plans despite him signing off on said plans. Anticipate discharge in 1-2 days. Patient likely exhausted therapeutic benefit from this psychiatric unit and is inconsistent with his presentation and histories. -Medications: Continue Klonopin 0.5 mg by mouth twice a day for anxiety Continue Cymbalta 60 mg by mouth twice a day for depression Continue Prolixin decanoate 50 mg IM with his next dose due on 12/09/2021 Continue trazodone 1 mg daily at bedtime for insomnia -When necessary Ativan and Geodon for agitation/aggression. -NRT - nicotine patch -SW on board for discharge planning. Encouraged the patient to participate in milieu.
[2021-12-06] MEDS: traZODone HCL 100 MG TAB PO SCH (20:32)
--- NOTE | 2021-12-06 23:41 | P.PN ---
Subjective Progress Note Date: 12/06/21 Labs reviewed and T4 is within normal limits at 0.970. Recommend to repeat TSH outpatient. Will continue to monitor heart rate. Consider EKG. Review of Systems Constitutional: Reports fatigue. denied any fever. Cardio vascular: denied any chest pain, palpitations Gastrointestinal: denied any nausea, vomiting, diarrhea Pulmonary: Denied any shortness of breath cough Neurologic denied any new focal deficits All inpatient medications were reviewed and appropriate changes in these medications as dictated in the interval history and assessment and plan. PHYSICAL EXAMINATION: GENERAL: The patient is alert and oriented x3, not in any acute distress. Well developed, well nourished. HEENT: Pupils are round and equally reacting to light. EOMI. No scleral icterus. No conjunctival pallor. Normocephalic, atraumatic. No pharyngeal erythema. No thyromegaly. CARDIOVASCULAR: S1 and S2 present. No murmurs, rubs, or gallops. PULMONARY: Chest is clear to auscultation, no wheezing or crackles. ABDOMEN: Soft, nontender, nondistended, normoactive bowel sounds. No palpable organomegaly. MUSCULOSKELETAL: No joint swelling or deformity. EXTREMITIES: No cyanosis, clubbing, or pedal edema. NEUROLOGICAL: Gross neurological examination did not reveal any focal deficits. SKIN: No rashes. Assessment and plan -Tachycardia: Patient does have low TSH, T4 normal. Possibly related to anxiety. Will review documented heart rate tomorrow. -Nicotine use: -Marijuana use -Depression and suicidal ideation, management as per primary service DVT prophylaxis ambulation GI prophylaxis Full Code The impression and plan of care has been dictated by Kennedi Nguyen, Nurse Practitioner as directed. Dr. Lorena MD I have performed a history and physical examination and medical decision making of this patient, discussed the same with the dictator, and agree with the dictators assessment and plan as written, documented as a scribe. Based on total visit time, I have performed more than 50% of this visit. Objective - Vital Signs Vital signs: Vital Signs Temp 97.2 F L 12/05/21 20:34 Pulse 118 H 12/05/21 20:34 Resp 16 12/05/21 20:34 BP 117/70 12/05/21 20:34 Pulse Ox 97 12/05/21 20:34 FiO2 Intake & Output 12/06/21 12/06/21 12/07/21 06:59 18:59 06:59 Weight 90.3 kg - Labs CBC & Chem 7: 12/05/21 07:32 12/05/21 07:32 Assessment and Plan Time with Patient: Less than 30
[2021-12-07 08:34] VITALS: BP 116/73; PULSE 94
[2021-12-07] MEDS: clonazePAM 0.5 MG TAB PO SCH (08:34)
[2021-12-07] MEDS: NICOTINE 14MG/24HR PATCH TRANSDERM SCH (08:34)
[2021-12-07] MEDS: DULoxetine HCL 60 MG CAPSULE.DR PO SCH (08:34)
--- NOTE | 2021-12-07 11:36 | P.DS ---
Providers Date of admission: 12/04/21 14:07 Expected date of discharge: 12/07/21 Attending physician: Chetan Valentino MD Consults: 12/04/21 14:12 Consult Physician Routine Consulting Provider: Can Maxwell Consult Reason/Comments: medical anagement Do you want consulting provider notified?: Yes Primary care physician: Becky Cristobal - Discharge Diagnosis(es) (1) Schizoaffective disorder Current Visit: Yes Status: Acute Priority: High (2) Antisocial personality disorder Current Visit: Yes Status: Chronic Priority: Medium (3) Nicotine dependence Current Visit: Yes Status: Chronic Priority: Medium Hospital Course: Admission HPI: Patient is a , unemployed, homeless, 31-year-old male who presents to the hospital after an attempted suicide by hanging. Patient presented to the hospital on 12/04/2021, after multiple visits to the emergency department over this past weekend. Reportedly, the patient attempts to hang himself in the park across the street with a bedsheet. She ripped the patient presents with emergency department. The patient was initially discharged from the psychiatric unit on 3W this past sunday. He was supposed to go to a facility in [place] that was living that with each and life skills, job skills and even provide him with a small salary. The patient currently states that no one told him of this despite him signing the paperwork at discharge informing him of this information. He reports that he called these facilities received no answer. The patient was discharged from the hospital several times however would contact the police and stated that he is suicidal, then become position by the police, then assessed by EPS and later report he is not suicidal. Currently on presentation on the psychiatric unit, the patient is denying any suicidal or homicidal ideation, intention, and/or plan. The patient expresses that he has no place to live. He reports that he just feels "very down and depressed." Despite this, the patient is not reporting any changes in his appetite, issues with sleep, or any suicidal or homicidal ideation. The patient does express hopelessness and helplessness. When confronted that he was set up with an appropriate aftercare plan, the patient vehemently denies this and states that he was not set up with such a plan despite having signed on to this plan during his last discharge. The patient did test positive for marijuana and benzodiazepines on admission. Patient states that he has a history of psychosis and benzodiazepine abuse.. He has been on numerous psychiatric medications including Abilify, Vistaril, Zoloft, Benadryl, Klonopin, Xanax, Cymbalta, and is on a home regimen of Prolixin Decanoate, Klonopin, Cymbalta, and trazodone. The patient has had numerous psychiatric hospitalizations and was recently discharged from the psychiatric unit on 12/02/2021. The patient is open with [facility] however has been nonadherent with outpatient appointments. Patient has a history of past suicide attempts. Hospital course: Upon admission to the unit patient was initially reporting that he was suicidal in the context of his homelessness however, the patient was providing inconsistent history stating that he had no appropriate aftercare plan set up for him despite signing off on said plan during his last admission and last discharge. The patient was continued on his home medications of Cymbalta, Prolixin decanoate, trazodone, and Klonopin. His Klonopin was decreased as the patient's present with any significant anxiety symptoms. Furthermore, the patient does have a history of polysubstance abuse. The patient remained minimally cooperative with staff and remained primarily isolative to himself in his room. He was however not endorsing any suicidal ideation or homicidal ideation during his hospitalization until he was informed that we were looking at discharge. After being informed that there is a plan to have him go to a [facility] than possible placement at [facility] later, the patient stated that he was no longer suicidal. There is a strong suspicion for secondary gain from this patient. On the day of discharge, the patient is not reporting any suicidal or homicidal ideation, intention, and/or plan. He is not reporting any auditory or visual hallucinations. He denies any paranoia or delusions. He reports no side effects of his medications. He reports no access to firearms or other weapons. He reports no issues regarding his sleep or his appetite. As the patient met criteria for continued hospitalization, he was subsequently discharged. Mental status exam: General Appearance: Patient appears to be stated age is alert, pleasant, and cooperative. Patient is in no acute distress and has fair hygiene and grooming Behavior: Patient is calmly seated without any agitated behavior. Speech: Patient's speech is fluent and nonpressured. Mood/Affect: Patient reports their mood is "I'm okay", affect is congruent and constricted at baseline. Suicidality/Homicidality: Patient denies having any suicidal or homicidal lenora ation intent or plan. Perceptions: Patient denies any auditory or visual hallucinations. Though content/process: There is no evidence of any delusional thought content and thought process is linear and goal-directed. Memory and concentration: AOX3, grossly intact for the purposes of this session. Can spell "WORLD" backwards correctly. Judgment and insight: Improved with guarded prognosis Impression: Schizoaffective disorder Nicotine dependence Antisocial personality disorder Plan: -Continue with discharge today as patient has improved and stabilized psychiatrically and is not currently an imminent threat to himself and/or others. Patient will remain at chronically elevated risk for harm to self and/or others due to antisocial behavior and polysubstance abuse. -Continue medications: Prolixin decanoate 50 mg IM with his next dose due on 12/09/2021 Cymbalta 60 mg by mouth twice a day for depression Klonopin 0.5 mg by mouth twice a day for anxiety Trazodone 100 mg by mouth at bedtime for insomnia -Patient was counseled on the need for medication compliance and appropriate follow-up at mental health and also primary care for medical issues. Patient verbalized understanding and agreed. -Social work to arrange for and conduct family meeting to ensure safety upon discharge and answer any questions/concerns. Social work also to arrange for patients follow up appointments with [facility] for psychiatric care along with follow up with primary care provider. -Patient counseled on abstaining from recreational drugs and marijuana and alcohol. Was informed/educated on the adverse effects on their physical and mental health. Patient verbally agreed and understood. -Patient was instructed to return to the hospital or seek immediate medical care if their psychiatric or medical symptoms do worsen or reoccur. -Psychoeducation and supportive therapy provided to patient. Risks and benefits of pharmacological treatment versus the risks and benefits of nontreatment weight and discussed. Informed consent discussion held. Common side effects of psychotropics discussed such as, but not limited to headache, GI disturbance, sexual dysfunction, movement disorders, sedation, and orthostatic hypotension. Life threatening and blackbox warnings of prescribed medications also discussed. Potential risks of operating a vehicle or heavy machinery discussed with patient at length. Advised on importance of compliance and a reliable and responsible manner. Patient advised to review FDA consumer labeling of all medications prior to taking. Patient verbalized understanding of potential risks, and agrees with current treatment plan. Patient advised to medically contact physician/emergency personnel if any acute changes in condition occur. Vital Signs Temp 97.2 F L 12/07/21 08:33 Pulse 94 12/07/21 08:33 Resp 16 12/07/21 08:33 BP 116/73 12/07/21 08:33 Pulse Ox 97 12/07/21 08:33 FiO2 Intake & Output 12/06/21 12/07/21 12/07/21 18:59 06:59 18:59 Weight 90.3 kg Laboratory Results WBC 8.1 k/uL (3.8-10.6) 12/05/21 07:32 RBC 5.08 m/uL (4.30-5.90) 12/05/21 07:32 Hgb 15.3 gm/dL (13.0-17.5) 12/05/21 07:32 Hct 46.8 % (39.0-53.0) 12/05/21 07:32 MCV 92.1 fL (80.0-100.0) 12/05/21 07:32 MCH 30.2 pg (25.0-35.0) 12/05/21 07:32 MCHC 32.7 g/dL (31.0-37.0) 12/05/21 07:32 RDW 13.3 % (11.5-15.5) 12/05/21 07:32 Plt Count 192 k/uL (150-450) 12/05/21 07:32 MPV 7.9 12/05/21 07:32 Neutrophils % 62 % 12/05/21 07:32 Lymphocytes % 26 % 12/05/21 07:32 Monocytes % 7 % 12/05/21 07:32 Eosinophils % 3 % 12/05/21 07:32 Basophils % 1 % 12/05/21 07:32 Neutrophils # 5.0 k/uL (1.3-7.7) 12/05/21 07:32 Lymphocytes # 2.1 k/uL (1.0-4.8) 12/05/21 07:32 Monocytes # 0.6 k/uL (0-1.0) 12/05/21 07:32 Eosinophils # 0.2 k/uL (0-0.7) 12/05/21 07:32 Basophils # 0.1 k/uL (0-0.2) 12/05/21 07:32 Sodium 139 mmol/L (137-145) 12/05/21 07:32 Potassium 4.6 mmol/L (3.5-5.1) 12/05/21 07:32 Chloride 105 mmol/L (98-107) 12/05/21 07:32 Carbon Dioxide 28 mmol/L (22-30) 12/05/21 07:32 Anion Gap 6 mmol/L 12/05/21 07:32 BUN 14 mg/dL (9-20) 12/05/21 07:32 Creatinine 1.03 mg/dL (0.66-1.25) 12/05/21 07:32 Est GFR (CKD-EPI)AfAm >90 (>60 ml/min/1.73 sqM) 12/05/21 07:32 Est GFR (CKD-EPI)NonAf >90 (>60 ml/min/1.73 sqM) 12/05/21 07:32 Glucose 91 mg/dL (74-99) 12/05/21 07:[address] Glu mg/dL 99 12/05/21 07:32 Hemoglobin A1c 5.1 % (0.0-6.0) 12/05/21 07:32 Calcium 9.2 mg/dL (8.4-10.2) 12/05/21 07:32 Total Bilirubin 0.4 mg/dL (0.2-1.3) 12/05/21 07:32 AST 20 U/L (17-59) 12/05/21 07:32 ALT 18 U/L (4-49) 12/05/21 07:32 Alkaline Phosphatase 54 U/L (38-126) 12/05/21 07:32 Total Protein 6.8 g/dL (6.3-8.2) 12/05/21 07:32 Albumin 4.2 g/dL (3.5-5.0) 12/05/21 07:32 Triglycerides 106.00 mg/dL (0.00-149.00) 12/05/21 07:32 Cholesterol 153.00 mg/dL (0.00-200.00) 12/05/21 07:32 LDL Cholesterol, Calc 102.9 mg/dL (0.0-131.0) 12/05/21 07: VLDL Cholesterol, Calc 21.20 mg/dL (5.00-40.00) 12/05/21 07:32 HDL Cholesterol 28.90 mg/dL (40.00-60.00) L 12/05/21 07: Cholesterol/HDL Ratio 5.29 Ratio 12/05/21 07: TSH 0.403 mIU/L (0.465-4.680) L 12/05/21 07: Free T4 0.970 ng/dL (0.800-1.800) 12/05/21 07:32 Urine Opiates Screen Not Detected (NotDetected) 12/04/21 08:00 Ur Oxycodone Screen Not Detected (NotDetected) 12/04/21 08:00 Urine Methadone Screen Not Detected (NotDetected) 12/04/21 08:00 Ur Propoxyphene Screen Not Detected (NotDetected) 12/04/21 08:00 Ur Barbiturates Screen Not Detected (NotDetected) 12/04/21 08:00 U Tricyclic Antidepress Not Detected (NotDetected) 12/04/21 08:00 Ur Phencyclidine Scrn Not Detected (NotDetected) 12/04/21 08:00 Ur Amphetamines Screen Not Detected (NotDetected) 12/04/21 08:00 U Methamphetamines Scrn Not Detected (NotDetected) 12/04/21 08:00 U Benzodiazepines Scrn Detected (NotDetected) H 12/04/21 08:00 Urine Cocaine Screen Not Detected (NotDetected) 12/04/21 08:00 U Marijuana (THC) Screen Detected (NotDetected) H 12/04/21 08:00 Coronavirus (PCR) Not Detected (Not Detectd) 12/04/21 12:34 Allergies Allergy/AdvReac Type Severity Reaction Status Date / Time No Known Allergies Allergy Verified 12/04/21 12:37 Patient Condition at Discharge: Stable Plan - Discharge Summary Discharge Rx Participant: No New Discharge Prescriptions: New Nicotine 14Mg/24Hr Patch [Habitrol] 1 patch TRANSDERM DAILY 30 Days patch Continue DULoxetine HCL [Cymbalta] 60 mg PO BID 30 Days cap fluPHENAZine decanoate [Prolixin Decanoate] 50 mg IM Q10D #1 ml Testosterone Cypionate [Depo-Testosterone] 100 mg IM Q14D traZODone HCL [Desyrel] 100 mg PO HS 30 Days tab Discontinued Nicotine 14Mg/24Hr Patch [Habitrol] 1 patch TRANSDERM DAILY 14 Days patch clonazePAM [KlonoPIN] 0.5 mg PO TID #0 tab Discharge Medication List Testosterone Cypionate [Depo-Testosterone] 100 mg IM Q14D 11/16/21 [History] DULoxetine HCL [Cymbalta] 60 mg PO BID 30 Days cap 12/02/21 [Rx] fluPHENAZine decanoate [Prolixin Decanoate] 50 mg IM Q10D #1 ml 12/02/21 [Rx] traZODone HCL [Desyrel] 100 mg PO HS 30 Days tab 12/02/21 [Rx] Nicotine 14Mg/24Hr Patch [Habitrol] 1 patch TRANSDERM DAILY 30 Days patch 12/07/21 [Rx] Follow up Appointment(s)/Referral(s): [facility] [Outside] - 12/09/21 9:30 am (12/09 9:30-11:30 Myrna Coon 12/09 12:15-12:30 injection 12/15 @ 10:30-11:00 Keith Garcia ) Becky Cristobal MD [Primary Care Provider] - 1-2 days Patient Instructions/Handouts: How to Stop Smoking (DC), Schizoaffective Disorder (DC) Activity/Diet/Wound Care/Special Instructions: Avoid the use of street drugs and alcohol. Take all prescriptions as prescribed. When you are in need of refills on your medications, please contact your medical provider and/or outpatient psychiatrist to have this done. Please go to scheduled outpatient appointment for aftercare treatment. If symptoms return or become worse, call the crisis line at and/or go to the nearest emergency room for evaluation. Discharge Disposition: HOME SELF-CARE
[2021-12-09] MEDS ORDERED: fluPHENAZine DECANOATE 25 MG/ML 5ML MDV IM SCH (09:00)
== END 2021-12-07 12:20 | disposition home or self-care (01) | DRG 885 ==
LOC: EC 04:07 → 3MHU 14:07
PROVIDERS: ADMIT Psychiatry & Neurology Psychiatry; ATTEND Psychiatry & Neurology Psychiatry
DX: F25.9 Schizoaffective disorder, unspecified (principal); R45.851 Suicidal ideations; F60.2 Antisocial personality disorder; Z20.822 Contact with and (suspected) exposure to COVID-19; F13.11 Sedative, hypnotic or anxiolytic abuse, in remission; I10 Essential (primary) hypertension; F32.A Depression, unspecified; F41.9 Anxiety disorder, unspecified; F90.9 Attention-deficit hyperactivity disorder, unspecified type; G43.909 Migraine, unspecified, not intractable, without status migrainosus; G89.29 Other chronic pain; M54.9 Dorsalgia, unspecified; G47.00 Insomnia, unspecified; F17.290 Nicotine dependence, other tobacco product, uncomplicated; Z71.6 Tobacco abuse counseling; Z79.890 Hormone replacement therapy; Z79.899 Other long term (current) drug therapy; Z91.51 Personal history of suicidal behavior; Z59.00 Homelessness unspecified; Z71.51 Drug abuse counseling and surveillance of drug abuser; Z81.8 Family history of other mental and behavioral disorders; Z80.9 Family history of malignant neoplasm, unspecified; Z82.3 Family history of stroke; Z82.49 Family history of ischemic heart disease and other diseases of the circulatory system
CPT/HCPCS: 80053; 80061; 80306; 82075; 83036; 84439; 84443; 85025; 87635; 99285

== ENCOUNTER 2022-02-27 16:30 | Emergency (ER) | payer OTHER ==
[2022-02-27 16:44] VITALS: RESP 18
--- NOTE | 2022-02-27 16:58 | ED ---
General Adult HPI - General Chief complaint: Arrhythmia/Palpitations Stated complaint: [place] Time Seen by Provider: 02/27/22 16:30 Source: patient, RN notes reviewed, old records reviewed Mode of arrival: ambulatory Limitations: no limitations - History of Present Illness Initial comments: This is a 31-year-old male presents emergency Department stating he is having difficulty urinating for the last 2 or 3 days. Patient states he has urinary urgency and then starts to go and then stops and starts again. Patient states he has no dysuria. Patient states she is currently not sexually active and has not been subjective for months. Patient states he started on a bunch of new medications after he got out of a psych unit about a month or so ago. Patient denies any abdominal pain. Patient denies any fever chills per patient denies any back pain. Patient states he went to see his primary medical care doctor and because his heart rate was about 120 beats a minute they sent him into the emergency department to be evaluated. Patient denies chest pain difficult breathing shortness of breath per patient denies any recent fever chills or cou gh. Patient denies lightheadedness or dizziness. - Related Data Home Medications Medication Instructions Recorded Confirmed Testosterone Cypionate 100 mg IM Q28D 11/16/21 02/27/22 [Depo-Testosterone] Benztropine Mesylate [Cogentin] 1 mg PO DAILY 02/27/22 02/27/22 Buprenorphine HCl/Naloxone HCl 1 film SL BID 02/27/22 02/27/22 [Suboxone 8 mg-2 mg Sl Film] Docusate Sodium [Dok] 100 mg PO BID PRN 02/27/22 02/27/22 Nicotine 21Mg/24Hr Patch [Habitrol] 1 patch TRANSDERM DAILY 02/27/22 02/27/22 OLANZapine [ZyPREXA] 20 mg PO HS 02/27/22 02/27/22 cloNIDine HCL [Catapres] 0.1 mg PO QID 02/27/22 02/27/22 hydrOXYzine pamoate 50 mg PO TID PRN 02/27/22 02/27/22 traZODone HCL [Desyrel] 100 mg PO HS 02/27/22 02/27/22 Previous Rx's Medication Instructions Recorded DULoxetine HCL [Cymbalta] 60 mg PO BID 30 Days cap 12/02/21 Allergies Allergy/AdvReac Type Severity Reaction Status Date / Time No Known Allergies Allergy Verified 02/27/22 16:44 Review of Systems ROS Statement: Those systems with pertinent positive or pertinent negative responses have been documented in the HPI. ROS Other: All systems not noted in ROS Statement are negative. Past Medical History Past Medical History: Hypertension Additional Past Medical History / Comment(s): Severe anxiety, migraines, chronic back pain, difficulty with focusing attention. History of Any Multi-Drug Resistant Organisms: None Reported Past Surgical History: Orthopedic Surgery Additional Past Surgical History / Comment(s): Left wrist open reduction internal fixation, lipoma removed from right posterior shoulder. Past Anesthesia/Blood Transfusion Reactions: No Reported Reaction Past Psychological History: ADD/ADHD, Anxiety, Depression, Schizophrenia Smoking Status: Current every day smoker Past Alcohol Use History: None Reported Past Drug Use History: None Reported - Past Family History Father Family Medical History: Cancer, CVA/TIA, Myocardial Infarction (MT) Additional Family Medical History / Comment(s): Father is alive at age 58. Patient states he has a rare cancer and undergoing chemotherapy. Mother Family Medical History: Coronary Artery Disease (CAD), Hypertension, Syncope Additional Family Medical History / Comment(s): Mother is alive at age 54 and also has history of anxiety and depression. Sister(s) History Unknown: Yes Family Medical History: No Reported History General Exam - General Exam Comments Initial Comments: GENERAL: Patient is well-developed and well-nourished. Patient is nontoxic and well- hydrated and is in no acute distress. ENT: Neck is soft and supple. No significant lymphadenopathy is noted. Oropharynx is clear. Moist mucous membranes. Neck has full range of motion without eliciting any pain. EYES: The sclera were anicteric and conjunctiva were pink and moist. Extraocular movements were intact and pupils were equal round and reactive to light. Eyelids were unremarkable. PULMONARY: Unlabored respirations. Good breath sounds bilaterally. No audible rales rhon chi or wheezing was noted. CARDIOVASCULAR: Patient is a regular rate and about 120 beats a minute ABDOMEN: Soft and nontender with normal bowel sounds. SKIN: Skin is clear with no lesions or rashes and otherwise unremarkable. NEUROLOGIC: Patient is alert and oriented x3. Cranial nerves II through XII are grossly intact. Motor and sensory are also intact. Normal speech, volume and content. Symmetrical smile. MUSCULOSKELETAL: Normal extremities with adequate strength and full range of motion. No lower extremity swelling or edema. No calf tenderness. LYMPHATICS: No significant lymphadenopathy is noted PSYCHIATRIC: Normal psychiatric evaluation. Limitations: no limitations Course Vital Signs 02/27/22 16:41 Temperature 98 F Pulse Rate 115 H Respiratory 18 Rate Blood Pressure 117/79 O2 Sat by Pulse 94 L Oximetry Medical Decision Making - Medical Decision Making EKG shows sinus tachycardia at 115 bpm [place] interval is on a 61 QRSs 87 QT interval 325 QTC is 393. Patient's EKG shows no ST segment elevation or depression. - Lab Data Result diagrams: 02/27/22 17:06 02/27/22 17:06 Lab Results 02/27/22 02/27/22 02/27/22 Range/Units 17:06 17:06 17:06 WBC 7.3 (3.8-10.6) k/uL RBC 4.53 (4.30-5.90) m/uL Hgb 14.1 (13.0-17.5) gm/dL Hct 41.0 (39.0-53.0) % MCV 90.3 (80.0-100.0) fL MCH 31.0 (25.0-35.0) pg MCHC 34.4 (31.0-37.0) g/dL RDW 13.0 (11.5-15.5) % Plt Count 228 (150-450) k/uL MPV 8.3 Neutrophils % 58 % Lymphocytes % 25 % Monocytes % 11 % Eosinophils % 2 % Basophils % 1 % Neutrophils # 4.3 (1.3-7.7) k/uL Lymphocytes # 1.8 (1.0-4.8) k/uL Monocytes # 0.8 (0-1.0) k/uL Eosinophils # 0.2 (0-0.7) k/uL Basophils # 0.0 (0-0.2) k/uL D-Dimer 0.91 H (<0.60) mg/L FEU Sodium 139 (137-145) mmol/L Potassium 3.8 (3.5-5.1) mmol/L Chloride 101 (98-107) mmol/L Carbon Dioxide 28 (22-30) mmol/L Anion Gap 10 mmol/L BUN 10 (9-20) mg/dL Creatinine 0.90 (0.66-1.25) mg/dL Est GFR (CKD-EPI)AfAm >90 (>60 ml/min/1.73 sqM) Est GFR (CKD-EPI)NonAf >90 (>60 ml/min/1.73 sqM) Glucose 100 H (74-99) mg/dL Calcium 8.4 (8.4-10.2) mg/dL Total Bilirubin 0.7 (0.2-1.3) mg/dL AST 40 (17-59) U/L ALT 45 (4-49) U/L Alkaline Phosphatase 60 (38-126) U/L Total Protein 6.2 L (6.3-8.2) g/dL Albumin 3.7 (3.5-5.0) g/dL TSH 2.700 (0.465-4.680) mIU/L Urine Color Urine Appearance (Clear) Urine pH (5.0-8.0) Ur Specific [place] (1.001-1.035) Urine Protein (Negative) Urine Glucose (UA) (Negative) Urine Ketones (Negative) Urine Blood (Negative) Urine Nitrite (Negative) Urine Bilirubin (Negative) Urine Urobilinogen (<2.0) mg/dL Ur Leukocyte Esterase (Negative) 02/27/22 Range/Units 17:06 WBC (3.8-10.6) k/uL RBC (4.30-5.90) m/uL Hgb (13.0-17.5) gm/dL Hct (39.0-53.0) % MCV (80.0-100.0) fL MCH (25.0-35.0) pg MCHC (31.0-37.0) g/dL RDW (11.5-15.5) % Plt Count (150-450) k/uL MPV Neutrophils % % Lymphocytes % % Monocytes % % Eosinophils % % Basophils % % Neutrophils # (1.3-7.7) k/uL Lymphocytes # (1.0-4.8) k/uL Monocytes # (0-1.0) k/uL Eosinophils # (0-0.7) k/uL Basophils # (0-0.2) k/uL D-Dimer (<0.60) mg/L FEU Sodium (137-145) mmol/L Potassium (3.5-5.1) mmol/L Chloride (98-107) mmol/L Carbon Dioxide (22-30) mmol/L Anion Gap mmol/L BUN (9-20) mg/dL Creatinine (0.66-1.25) mg/dL Est GFR (CKD-EPI)AfAm (>60 ml/min/1.73 sqM) Est GFR (CKD-EPI)NonAf (>60 ml/min/1.73 sqM) Glucose (74-99) mg/dL Calcium (8.4-10.2) mg/dL Total Bilirubin (0.2-1.3) mg/dL AST (17-59) U/L ALT (4-49) U/L Alkaline Phosphatase (38-126) U/L Total Protein (6.3-8.2) g/dL Albumin (3.5-5.0) g/dL TSH (0.465-4.680) mIU/L Urine Color Light Yellow Urine Appearance Clear (Clear) Urine pH 7.0 (5.0-8.0) Ur Specific [place] 1.007 (1.001-1.035) Urine Protein Negative (Negative) Urine Glucose (UA) Negative (Negative) Urine Ketones Negative (Negative) Urine Blood Negative (Negative) Urine Nitrite Negative (Negative) Urine Bilirubin Negative (Negative) Urine Urobilinogen <2.0 (<2.0) mg/dL Ur Leukocyte Esterase Negative (Negative) Disposition Clinical Impression: Sinus tachycardia, Urinary hesitancy Disposition: HOME SELF-CARE Instructions (If sedation given, give patient instructions): Heart Palpitations (ED), Urinary Retention in Men (ED) Is patient prescribed a controlled substance at d/c from ED?: No Referrals: Becky Cristobal MD [Primary Care Provider] - 1-2 days Aashish Preston MD [STAFF PHYSICIAN] - 1-2 days Time of Disposition: 20:39
[2022-02-27 17:37] LABS: Appearance,Urine Clear (Clear); Basophils % (A) 1 %; Bilirubin,Urine Negative (Negative); Blood,Urine Negative (Negative); Color,Urine Light Yellow; Eosinophils # (A) 0.2 k/uL (0-0.7); Eosinophils % (A) 2 %; Glucose,Urine (UA) Negative (Negative); HGB 14.1 gm/dL (13.0-17.5); Ketones,Urine Negative (Negative); Leukocyte Esterase,Urine Negative (Negative); Lymphocytes # (A) 1.8 k/uL (1.0-4.8); Lymphocytes % (A) 25 %; MCHC 34.4 g/dL (31.0-37.0); MCV 90.3 fL (80.0-100.0); Mean Platelet Volume 8.3; Monocytes # (A) 0.8 k/uL (0-1.0); Monocytes % (A) 11 %; Neutrophils # (A) 4.3 k/uL (1.3-7.7); Neutrophils % (A) 58 %; Nitrite,Urine Negative (Negative); Platelet Count 228 k/uL (150-450); Protein,Urine Negative (Negative); RBC 4.53 m/uL (4.30-5.90); Specific Gravity,Urine 1.007 (1.001-1.035); Urobilinogen,Urine <2.0 mg/dL (<2.0); WBC 7.3 k/uL (3.8-10.6)
[2022-02-27 17:51] LABS: Potassium 3.8 mmol/L (3.5-5.1)
[2022-02-27 17:52] LABS: ALT 45 U/L (4-49); AST 40 U/L (17-59); African American GFR (CKD) >90 (>60 ml/min/1.73 sqM); Albumin 3.7 g/dL (3.5-5.0); Alkaline Phosphatase 60 U/L (38-126); Anion Gap 10 mmol/L; Blood Urea Nitrogen 10 mg/dL (9-20); Calcium 8.4 mg/dL (8.4-10.2); Carbon Dioxide 28 mmol/L (22-30); Chloride 101 mmol/L (98-107); Glucose 100 mg/dL (74-99); Non-African American GFR(CKD) >90 (>60 ml/min/1.73 sqM); Sodium 139 mmol/L (137-145); Total Bilirubin 0.7 mg/dL (0.2-1.3); Total Protein 6.2 g/dL (6.3-8.2)
--- NOTE | 2022-02-27 17:55 | XR ---
EXAMINATION TYPE: XR chest 2V DATE OF EXAM: 02/27/2022 5:36 PM COMPARISON: Chest radiographs from 06/05/2021 TECHNIQUE: XR chest 2V Frontal and lateral views of the chest. CLINICAL INDICATION:Male, 31 years old with history of Difficulty breathing ; FINDINGS: Lungs/Pleura: There is no evidence of pleural effusion, focal consolidation, or pneumothorax. Pulmonary vascularity: Unremarkable. Heart/mediastinum: Cardiomediastinal silhouette is unremarkable. Musculoskeletal: No acute osseous pathology. IMPRESSION: No acute cardiopulmonary disease/process.
--- NOTE | 2022-02-27 19:24 | CT ---
EXAMINATION TYPE: CT chest angio for PE CT DLP: 579.1 mGycm, Automated exposure control for dose reduction was used. DATE OF EXAM: 02/27/2022 7:14 PM COMPARISON: Chest radiograph from same day. Multiple CTs of the chest with most recent on 10/24/2021 CLINICAL INDICATION:Male, 31 years old with history of Elevated d-dimer; Tachycardia, elevated d-dime r. TECHNIQUE/CONTRAST: CTA scan of the thorax is performed with IV Contrast, patient injected with 100 mL of Isovue 370, pul monary embolism protocol. MIP images are created and reviewed. FINDINGS: Pulmonary Artery: There is no evidence for a filling defect within the pulmonary vasculature to sugge st acute pulmonary embolism. The pulmonary artery is of normal size. Lungs/Pleura: No evidence of focal consolidation, pleural effusion or pneumothorax. Airway: Large airways are patent. Heart: Heart is within normal limits for size.. Vasculature: No evidence of aortic aneurysm. Mediastinum: No gross evidence of adenopathy. Musculoskeletal: No acute osseous abnormalities Soft Tissues: Unremarkable. Lower neck: No significant findings. Upper Abdomen: No significant findings. IMPRESSION: 1. Nondiagnostic exam for pulmonary embolus secondary to bolus timing. Consider repeat examination. 2. No evidence for acute fracture thoracic process.
[2022-02-27 20:39] VITALS: BP 130/89; PULSE 105; TEMP 98.5
--- NOTE | 2022-02-27 20:43 | CT ---
EXAMINATION TYPE: CT angio chest CT DLP: 569.8 mGycm, Automated exposure control for dose reduction was used. DATE OF EXAM: 02/27/2022 8:22 PM COMPARISON: Same day CT angiogram. CLINICAL INDICATION:Male, 31 years old with history of Elevated d-dimer.; Tachycardia, elevated d-dim er TECHNIQUE/CONTRAST: CTA scan of the thorax is performed with IV Contrast, patient injected with 55 mL of Isovue 370, pulm onary embolism protocol. MIP images are created and reviewed. FINDINGS: Pulmonary Artery: Motion limited exam. There is no evidence for a central filling defect within the p ulmonary vasculature to suggest acute pulmonary embolism. Limited evaluation of the segmental and sub segmental branches secondary to respiratory motion. The pulmonary artery is of normal size. Imaging of the exam is unchanged from prior on 10/24/2021 earlier in the day. IMPRESSION: 1. No evidence of central pulmonary embolism. Limited evaluation of the subsegmental branches seconda ry to respiratory motion.. 2. The remainder of exam is unchanged from prior.
== END 2022-02-27 21:00 | disposition home or self-care (01) ==
LOC: EC 16:30
DX: R00.0 Tachycardia, unspecified (principal); R39.11 Hesitancy of micturition; I10 Essential (primary) hypertension; F41.9 Anxiety disorder, unspecified; F32.A Depression, unspecified; F17.200 Nicotine dependence, unspecified, uncomplicated; Z79.899 Other long term (current) drug therapy
CPT/HCPCS: 36415; 93005; 85379; 80053; 84443; 85025; 81003; 71046; 71275; 99285; Q9967

== ENCOUNTER 2022-03-10 11:13 | Inpatient (IN) | payer MEDICAID, OTHER ==
--- NOTE | 2022-03-10 12:45 | ED ---
General Adult HPI - General Chief complaint: Psychiatric Symptoms Stated complaint: mental health Time Seen by Provider: 03/10/22 11:52 Source: EMS Mode of arrival: EMS Limitations: no limitations - History of Present Illness Initial comments: Dictation was produced using [employer] dictation software. please excuse any grammatical, word or spelling errors. Chief Complaint: 31-year-old male presents emergency department for suicidal ideation History of Present Illness: Patient's 31-year-old male past medical history of schizophrenia. Patient has been having suicidal ideation for the last several days. Patient has no medical completes. No homicidal ideation. Patient has no specific plan. Denies any visual auditory hallucinations. The ROS documented in this emergency department record has been reviewed and confirmed by me. Those systems with pertinent positive or negative responses have been documented in the HPI. All other systems are other negative and/or noncontributory. PHYSICAL EXAM: General Impression: Alert and oriented x3, not in acute distress HEENT: Normocephalic atraumatic, extra-ocular movements intact, pupils equal and reactive to light bilaterally, mucous membranes moist. Cardiovascular: Heart regular rate and rhythm Chest: Able to complete full sentences, no retractions, no tachypnea Abdomen: abdomen soft, non-tender, non-distended, no organomegaly Musculoskeletal: Pulses present and equal in all extremities, no peripheral edema Motor: no focal deficits noted Neurological: CN II-XII grossly intact, no focal motor or sensory deficits noted Skin: Intact with no visualized rashes Psych: Normal affect and mood ED course: 31-year-old well-appearing male presents emergency department for leon icidal ideation. Patient sent by [facility]. Patient has history of schizophrenia. Signs upon arrival are within acceptable limits. Physical examination is benign. Patient medically cleared for EPS evaluation. EPS evaluated patient and recommended admission to mental health unit. - Related Data Home Medications Medication Instructions Recorded Confirmed Testosterone Cypionate 100 mg IM Q28D 11/16/21 03/10/22 [Depo-Testosterone] Benztropine Mesylate [Cogentin] 1 mg PO BID 02/27/22 03/10/22 Buprenorphine HCl/Naloxone HCl 1 film SL TID 02/27/22 03/10/22 [Suboxone 8 mg-2 mg Sl Film] Docusate Sodium [Dok] 100 mg PO BID PRN 02/27/22 03/10/22 Nicotine 21Mg/24Hr Patch [Habitrol] 1 patch TRANSDERM DAILY 02/27/22 03/10/22 OLANZapine [ZyPREXA] 20 mg PO HS 02/27/22 03/10/22 cloNIDine HCL [Catapres] 0.1 mg PO QID 02/27/22 03/10/22 hydrOXYzine pamoate 50 mg PO TID PRN 02/27/22 03/10/22 traZODone HCL [Desyrel] 100 mg PO HS 02/27/22 03/10/22 Paliperidone IM [Invega Sustenna] 156 mg IM QMONTHLY 03/10/22 03/10/22 polyethylene glycoL 3350 [Clearlax] 1 packet PO DAILY PRN 03/10/22 03/10/22 Previous Rx's Medication Instructions Recorded DULoxetine HCL [Cymbalta] 60 mg PO BID 30 Days cap 12/02/21 Allergies Allergy/AdvReac Type Severity Reaction Status Date / Time No Known Allergies Allergy Verified 03/10/22 11:48 Review of Systems ROS Statement: Those systems with pertinent positive or pertinent negative responses have been documented in the HPI. ROS Other: All systems not noted in ROS Statement are negative. Past Medical History Past Medical History: Hypertension Additional Past Medical History / Comment(s): Severe anxiety, migraines, chronic back pain, difficulty with focusing attention. History of Any Multi-Drug Resistant Organisms: None Reported Past Surgical History: Orthopedic Surgery Additional Past Surgical History / Comment(s): Left wrist open reduction internal fixation, lipoma removed from right posterior shoulder. Past Anesthesia/Blood Transfusion Reactions: No Reported Reaction Past Psychological History: ADD/ADHD, Anxiety, Depression, Schizophrenia Smoking Status: Current every day smoker Past Alcohol Use History: None Reported Past Drug Use History: None Reported - Past Family History Father Family Medical History: Cancer, CVA/TIA, Myocardial Infarction ([place]) Additional Family Medical History / Comment(s): Father is alive at age 58. Patient states he has a rare cancer and undergoing chemotherapy. Mother Family Medical History: Coronary Artery Disease (CAD), Hypertension, Syncope Additional Family Medical History / Comment(s): Mother is alive at age 54 and also has history of anxiety and depression. Sister(s) History Unknown: Yes Family Medical History: No Reported History General Exam Limitations: no limitations Course Vital Signs 03/10/22 11:40 Temperature 98.7 F Pulse Rate 89 Respiratory 18 Rate Blood Pressure 118/76 O2 Sat by Pulse 95 Oximetry Medical Decision Making - Lab Data Lab Results 03/10/22 Range/Units 12:55 Urine Opiates Screen Not Detected (NotDetected) Ur Oxycodone Screen Not Detected (NotDetected) Urine Methadone Screen Not Detected (NotDetected) Ur Propoxyphene Screen Not Detected (NotDetected) Ur Barbiturates Screen Not Detected (NotDetected) U Tricyclic Antidepress Not Detected (NotDetected) Ur Phencyclidine Scrn Not Detected (NotDetected) Ur Amphetamines Screen Not Detected (NotDetected) U Methamphetamines Scrn Not Detected (NotDetected) U Benzodiazepines Scrn Not Detected (NotDetected) Urine Cocaine Screen Not Detected (NotDetected) U Marijuana (THC) Screen Not Detected (NotDetected) Disposition Clinical Impression: Suicidal ideation Disposition: ADMITTED IP TO THIS [facility] Condition: Fair Referrals: Becky Cristobal MD [Primary Care Provider] - 1-2 days Decision Time: 15:50
[2022-03-10 14:01] LABS: Amphetamine Screen,Urine Not Detected (NotDetected); Barbiturate Screen,Urine Not Detected (NotDetected); Benzodiazepines Screen,Urine Not Detected (NotDetected); Cocaine Screen,Urine Not Detected (NotDetected); Methadone Screen, Urine Not Detected (NotDetected); Opiate Screen,Urine Not Detected (NotDetected); Oxycodone Screen, Urine Not Detected (NotDetected); Phencyclidine Screen,Urine Not Detected (NotDetected); Tricyclic Antidepressant,Urine Not Detected (NotDetected); Urn Cannabinoid Scrn Not Detected (NotDetected)
[2022-03-10] MEDS ORDERED: ALPRAZolam 1 MG TAB PO STA (17:24)
[2022-03-10] MEDS: NALOXONE SUBLINGUAL SCH ×2 (17:46→22:20)
[2022-03-10] MEDS: BUPRENORPHINE SUBLINGUAL SCH ×2 (17:46→22:20)
[2022-03-10 19:14] LABS: Appearance,Urine Clear (Clear); Bilirubin,Urine Negative (Negative); Blood,Urine Negative (Negative); Color,Urine Colorless; Glucose,Urine (UA) Negative (Negative); Ketones,Urine Negative (Negative); Leukocyte Esterase,Urine Negative (Negative); Nitrite,Urine Negative (Negative); Protein,Urine Negative (Negative); Specific Gravity,Urine 1.005 (1.001-1.035); Urobilinogen,Urine <2.0 mg/dL (<2.0)
[2022-03-10 20:46] LABS: Basophils # (A) 0.1 k/uL (0-0.2); Basophils % (A) 1 %; Eosinophils # (A) 0.2 k/uL (0-0.7); Eosinophils % (A) 3 %; HCT 41.6 % (39.0-53.0); HGB 14.1 gm/dL (13.0-17.5); Lymphocytes # (A) 1.9 k/uL (1.0-4.8); Lymphocytes % (A) 28 %; MCH 29.9 pg (25.0-35.0); MCV 87.9 fL (80.0-100.0); Mean Platelet Volume 7.8; Monocytes # (A) 0.6 k/uL (0-1.0); Monocytes % (A) 8 %; Neutrophils # (A) 3.9 k/uL (1.3-7.7); Neutrophils % (A) 56 %; Platelet Count 288 k/uL (150-450); RBC 4.73 m/uL (4.30-5.90); RDW 12.8 % (11.5-15.5)
[2022-03-10 21:12] LABS: ALT 56 U/L (4-49); AST 30 U/L (17-59); African American GFR (CKD) >90 (>60 ml/min/1.73 sqM); Albumin 4.2 g/dL (3.5-5.0); Alkaline Phosphatase 56 U/L (38-126); Anion Gap 11 mmol/L; Blood Urea Nitrogen 14 mg/dL (9-20); Calcium 8.8 mg/dL (8.4-10.2); Carbon Dioxide 28 mmol/L (22-30); Chloride 102 mmol/L (98-107); Glucose 102 mg/dL (74-99); Non-African American GFR(CKD) >90 (>60 ml/min/1.73 sqM); Potassium 4.5 mmol/L (3.5-5.1); Sodium 141 mmol/L (137-145); Total Bilirubin 0.5 mg/dL (0.2-1.3); Total Protein 6.6 g/dL (6.3-8.2)
[2022-03-11] MEDS: BUPRENORPHINE SUBLINGUAL SCH ×3 (09:22→22:04)
[2022-03-11] MEDS: NALOXONE SUBLINGUAL SCH ×3 (09:22→22:04)
[2022-03-11] MEDS ORDERED: DOCUSATE 100 MG CAP PO PRN (09:29)
[2022-03-11] MEDS ORDERED: hydrOXYzine pamoate 25 MG CAP PO PRN (09:29)
[2022-03-11] MEDS ORDERED: ALPRAZolam 1 MG TAB PO STA (09:29)
[2022-03-11] MEDS: NICOTINE 21MG/24HR PATCH TRANSDERM SCH (09:53)
[2022-03-11] MEDS: cloNIDine HCL 0.1 MG TAB PO SCH ×3 (14:11→22:03)
[2022-03-11] MEDS: OLANZapine 10 MG TAB PO SCH (22:03)
[2022-03-11] MEDS: BENZTROPINE MESYLATE 1 MG TAB PO SCH (22:03)
[2022-03-11] MEDS: DULoxetine HCL 60 MG CAPSULE.DR PO SCH (22:03)
[2022-03-12] MEDS ORDERED: NICOTINE 21MG/24HR PATCH TRANSDERM SCH (09:00)
[2022-03-12] MEDS: BENZTROPINE MESYLATE 1 MG TAB PO SCH ×2 (09:06→20:57)
[2022-03-12] MEDS: cloNIDine HCL 0.1 MG TAB PO SCH ×5 (09:06→20:56)
[2022-03-12] MEDS: DULoxetine HCL 60 MG CAPSULE.DR PO SCH ×2 (09:06→20:56)
[2022-03-12] MEDS: NICOTINE 21MG/24HR PATCH TRANSDERM SCH (09:09)
[2022-03-12] MEDS: BUPRENORPHINE SUBLINGUAL SCH ×4 (09:09→22:12)
[2022-03-12] MEDS: NALOXONE SUBLINGUAL SCH ×4 (09:09→22:12)
[2022-03-12] MEDS ORDERED: ALPRAZolam 1 MG TAB PO STA (13:42)
[2022-03-12] MEDS: OLANZapine 10 MG TAB PO SCH (20:56)
[2022-03-13] MEDS: BENZTROPINE MESYLATE 1 MG TAB PO SCH ×2 (10:38→20:16)
[2022-03-13] MEDS: DULoxetine HCL 60 MG CAPSULE.DR PO SCH ×2 (10:38→21:26)
[2022-03-13] MEDS: cloNIDine HCL 0.1 MG TAB PO SCH ×4 (10:38→21:26)
[2022-03-13] MEDS: BUPRENORPHINE SUBLINGUAL SCH ×3 (10:41→22:41)
[2022-03-13] MEDS: NALOXONE SUBLINGUAL SCH ×3 (10:41→22:41)
[2022-03-13] MEDS: NICOTINE 21MG/24HR PATCH TRANSDERM SCH (10:41)
[2022-03-13] MEDS ORDERED: polyethylene glycoL 3350 17 GM POWD.PACK PO PRN (15:14)
[2022-03-13] MEDS ORDERED: ACETAMINOPHEN TAB 325 MG TAB PO PRN (15:17)
[2022-03-13] MEDS ORDERED: MAGNESIUM HYDROXIDE 2,400 MG/10 ML CUP PO PRN (15:17)
[2022-03-13] MEDS ORDERED: LORazepam 1 MG/0.5 ML VIAL IM PRN (15:22)
[2022-03-13] MEDS: LORazepam 1 MG TAB PO PRN ×2 (15:40→20:17)
[2022-03-13] MEDS: OLANZapine 10 MG TAB PO SCH (20:15)
[2022-03-13] MEDS: traZODone HCL 100 MG TAB PO SCH (20:16)
[2022-03-14] MEDS: NICOTINE 21MG/24HR PATCH TRANSDERM SCH ×2 (08:48→09:18)
[2022-03-14] MEDS: BENZTROPINE MESYLATE 1 MG TAB PO SCH ×2 (08:48→20:24)
[2022-03-14] MEDS: LORazepam 1 MG TAB PO PRN ×2 (08:50→18:02)
[2022-03-14] MEDS: DULoxetine HCL 60 MG CAPSULE.DR PO SCH ×2 (09:16→20:24)
[2022-03-14] MEDS: BUPRENORPHINE SUBLINGUAL SCH ×4 (09:16→21:27)
[2022-03-14] MEDS: NALOXONE SUBLINGUAL SCH ×4 (09:16→21:27)
[2022-03-14] MEDS: cloNIDine HCL 0.1 MG TAB PO SCH ×3 (09:16→20:25)
[2022-03-14 10:37] LABS: Chol/HDL Ratio 4.64 Ratio; LDL Cholesterol,Calculated 96.9 mg/dL (0.0-131.0); VLDL Calculation 15.28 mg/dL (5.00-40.00)
--- NOTE | 2022-03-14 11:30 | P.CONS ---
History of Present Illness - Reason for Consult Left groin cellulitis - History of Present Illness 31-year-old male was admitted for suicidal ideation. Patient does have history of hypertension for which patient is on clonidine but his blood pressure is low normal at this time we'll try to wean off clonidine patient is bit tachycardic concerned about reflux tachycardia with sudden stoppage of this medication patient is complaining of pus can be down the groin area pain in the groin area and does have mild cellulitis along with a small ulcer. Patient denied using any drugs or injecting any drugs had history of by mouth drug abuse in the past. REVIEW OF SYSTEMS: CONSTITUTIONAL: No fever, no malaise, no fatigue. HEENT: No recent visual problems or hearing problems. Denied any sore throat. CARDIOVASCULAR: No chest pain, orthopnea, PND, no palpitations, no syncope. PULMONARY: No shortness of breath, no cough, no hemoptysis. GASTROINTESTINAL: No diarrhea, no nausea, no vomiting, no abdominal pain. NEUROLOGICAL: No headaches, no weakness, no numbness. HEMATOLOGICAL: Denies any bleeding or petechiae. GENITOURINARY: Denies any burning micturition, frequency, or urgency. MUSCULOSKELETAL/RHEUMATOLOGICAL: Denies any joint pain, swelling, or any muscle pain. ENDOCRINE: Denies any polyuria or polydipsia. The rest of the 14-point review of systems is negative. PHYSICAL EXAMINATION: GENERAL: The patient is alert and oriented x3, not in any acute distress. Well developed, well nourished. HEENT: Pupils are round and equally reacting to light. EOMI. No scleral icterus. No conjunctival pallor. Normocephalic, atraumatic. No pharyngeal erythema. No thyromegaly. CARDIOVASCULAR: S1 and S2 present. No murmurs, rubs, or gallops. PULMONARY: Chest is clear to auscultation, no wheezing or crackles. ABDOMEN: Soft, nontender, nondistended, normoactive bowel sounds. No palpable organomegaly. MUSCULOSKELETAL: No joint swelling or deformity. EXTREMITIES: No cyanosis, clubbing, or pedal edema. NEUROLOGICAL: Gross neurological examination did not reveal any focal deficits. SKIN: No rashes. Assessment and plan -Small ulcer with cellulitis in the left groin area Neosporin ointment, Keflex for 5 days along with a barrier Band-Aid -Hypertension: Management as mentioned above -Depression: Management as per primary service Past Medical History Past Medical History: Hypertension Additional Past Medical History / Comment(s): Severe anxiety, migraines, chronic back pain, difficulty with focusing attention. History of Any Multi-Drug Resistant Organisms: None Reported Past Surgical History: Orthopedic Surgery Additional Past Surgical History / Comment(s): Left wrist open reduction internal fixation, lipoma removed from right posterior shoulder. Past Anesthesia/Blood Transfusion Reactions: No Reported Reaction Past Psychological History: ADD/ADHD, Anxiety, Depression, Schizophrenia Additional Psychological History / Comment(s): OCD, ADD Smoking Status: Current every day smoker Past Alcohol Use History: None Reported Additional Past Alcohol Use History / Comment(s): Patient is a smoker of one pack per day for 4 years. He states he has not had alcohol since his DUI in May 2015. Hx of opiate 3 years ago. Patient reports chewing tobacco and vaping. 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 3-15 vicodin per day. Denies use since treatment.Rx for xanax that patient reports using 2 mg po bid. - Past Family History Father Family Medical History: Cancer, CVA/TIA, Myocardial Infarction ([place]) Additional Family Medical History / Comment(s): Father is alive at age 58. Patient states he has a rare cancer and undergoing chemotherapy. Mother Family Medical History: Coronary Artery Disease (CAD), Hypertension, Syncope Additional Family Medical History / Comment(s): Mother is alive at age 54 and also has history of anxiety and depression. Sister(s) History Unknown: Yes Family Medical History: No Reported History Medications and Allergies Home Medications Medication Instructions Recorded Confirmed Type Testosterone Cypionate 100 mg IM Q28D 11/16/21 03/13/22 History [Depo-Testosterone] DULoxetine HCL [Cymbalta] 60 mg PO BID 30 Days cap 12/02/21 03/13/22 Rx Benztropine Mesylate [Cogentin] 1 mg PO BID 02/27/22 03/13/22 History Buprenorphine HCl/Naloxone HCl 1 film SL TID 02/27/22 03/13/22 History [Suboxone 8 mg-2 mg Sl Film] Docusate Sodium [Dok] 100 mg PO BID PRN 02/27/22 03/13/22 History Nicotine 21Mg/24Hr Patch [Habitrol] 1 patch TRANSDERM DAILY 02/27/22 03/13/22 History OLANZapine [ZyPREXA] 20 mg PO HS 02/27/22 03/13/22 History cloNIDine HCL [Catapres] 0.1 mg PO QID 02/27/22 03/13/22 History hydrOXYzine pamoate 50 mg PO TID PRN 02/27/22 03/13/22 History traZODone HCL [Desyrel] 100 mg PO HS 02/27/22 03/13/22 History Paliperidone IM [Invega Sustenna] 156 mg IM QMONTHLY 03/10/22 03/13/22 History polyethylene glycoL 3350 [Clearlax] 1 packet PO DAILY PRN 03/10/22 03/13/22 History Allergies Allergy/AdvReac Type Severity Reaction Status Date / Time No Known Allergies Allergy Verified 03/13/22 15:51 Physical Exam Vitals: Vital Signs Temp Pulse Pulse Resp BP BP Pulse Ox 03/14/22 05:30 97.5 F L 62 16 95/51 93 L 03/13/22 15:41 98.1 F 107 H 16 119/73 03/13/22 15:18 98.5 F 116 H 18 123/73 96 03/13/22 13:25 75 16 111/54 96 03/13/22 12:09 98.3 F 66 16 95/53 96 Intake and Output 03/13/22 03/14/22 03/14/22 22:59 06:59 14:59 Other: Weight 106.594 kg Results CBC & Chem 7: 03/10/22 20:38 03/10/22 20:38 Labs: Abnormal Lab Results - Last 24 Hours (Table) 03/10/22 Range/Units 20:38 HDL Cholesterol 30.80 L (40.00-60.00) mg/dL
[2022-03-14] MEDS: CEPHALEXIN 500 MG CAP PO SCH ×3 (11:58→20:25)
[2022-03-14] MEDS ORDERED: HALOPERIDOL LACTATE 5 MG/ML 1 ML VIAL IM PRN (13:27)
[2022-03-14] MEDS ORDERED: haloperidoL 5 MG TAB PO PRN (13:27)
--- NOTE | 2022-03-14 13:28 | P.HP ---
Psychiatric H&P - . H&P Date: 03/14/22 History & Physical: Allergies Allergy/AdvReac Type Severity Reaction Status Date / Time No Known Allergies Allergy Verified 03/13/22 15:51 Vital Signs Temp 97.5 F L 03/14/22 05:30 Pulse 62 03/14/22 05:30 Resp 16 03/14/22 05:30 BP 95/51 03/14/22 05:30 Pulse Ox 93 L 03/14/22 05:30 FiO2 Intake & Output 03/13/22 03/14/22 03/14/22 18:59 06:59 18:59 Weight 106.594 kg Laboratory Last Values WBC 7.0 k/uL (3.8-10.6) 03/10/22 20:38 RBC 4.73 m/uL (4.30-5.90) 03/10/22 20:38 Hgb 14.1 gm/dL (13.0-17.5) 03/10/22 20:38 Hct 41.6 % (39.0-53.0) 03/10/22 20:38 MCV 87.9 fL (80.0-100.0) 03/10/22 20:38 MCH 29.9 pg (25.0-35.0) 03/10/22 20:38 MCHC 34.0 g/dL (31.0-37.0) 03/10/22 20:38 RDW 12.8 % (11.5-15.5) 03/10/22 20:38 Plt Count 288 k/uL (150-450) 03/10/22 20:38 MPV 7.8 03/10/22 20:38 Neutrophils % 56 % 03/10/22 20:38 Lymphocytes % 28 % 03/10/22 20:38 Monocytes % 8 % 03/10/22 20:38 Eosinophils % 3 % 03/10/22 20:38 Basophils % 1 % 03/10/22 20:38 Neutrophils # 3.9 k/uL (1.3-7.7) 03/10/22 20:38 Lymphocytes # 1.9 k/uL (1.0-4.8) 03/10/22 20:38 Monocytes # 0.6 k/uL (0-1.0) 03/10/22 20:38 Eosinophils # 0.2 k/uL (0-0.7) 03/10/22 20:38 Basophils # 0.1 k/uL (0-0.2) 03/10/22 20:38 Sodium 141 mmol/L (137-145) 03/10/22 20:38 Potassium 4.5 mmol/L (3.5-5.1) 03/10/22 20:38 Chloride 102 mmol/L (98-107) 03/10/22 20:38 Carbon Dioxide 28 mmol/L (22-30) 03/10/22 20:38 Anion Gap 11 mmol/L 03/10/22 20:38 BUN 14 mg/dL (9-20) 03/10/22 20:38 Creatinine 1.01 mg/dL (0.66-1.25) 03/10/22 20:38 Est GFR (CKD-EPI)AfAm >90 (>60 ml/min/1.73 sqM) 03/10/22 20:38 Est GFR (CKD-EPI)NonAf >90 (>60 ml/min/1.73 sqM) 03/10/22 20:38 Glucose 102 mg/dL (74-99) H 03/10/22 20:[address] Glu mg/dL 105 03/10/22 20:38 Hemoglobin A1c 5.3 % (0.0-6.0) 03/10/22 20:38 Calcium 8.8 mg/dL (8.4-10.2) 03/10/22 20:38 Total Bilirubin 0.5 mg/dL (0.2-1.3) 03/10/22 20:38 AST 30 U/L (17-59) 03/10/22 20:38 ALT 56 U/L (4-49) H 03/10/22 20:38 Alkaline Phosphatase 56 U/L (38-126) 03/10/22 20:38 Total Protein 6.6 g/dL (6.3-8.2) 03/10/22 20:38 Albumin 4.2 g/dL (3.5-5.0) 03/10/22 20:38 Triglycerides 76.40 mg/dL (0.00-149.00) 03/10/22 20:38 Cholesterol 143.00 mg/dL (0.00-200.00) 03/10/22 20:38 LDL Cholesterol, Calc 96.9 mg/dL (0.0-131.0) 03/10/22 20:38 VLDL Cholesterol, Calc 15.28 mg/dL (5.00-40.00) 03/10/22 20:38 HDL Cholesterol 30.80 mg/dL (40.00-60.00) L 03/10/22 20:38 Cholesterol/HDL Ratio 4.64 Ratio 03/10/22 20:38 TSH 1.390 mIU/L (0.465-4.680) 03/10/22 20:38 Urine Color Colorless 03/10/22 18:00 Urine Appearance Clear (Clear) 03/10/22 18:00 Urine pH 7.0 (5.0-8.0) 03/10/22 18:00 Ur Specific [place] 1.005 (1.001-1.035) 03/10/22 18:00 Urine Protein Negative (Negative) 03/10/22 18:00 Urine Glucose (UA) Negative (Negative) 03/10/22 18:00 Urine Ketones Negative (Negative) 03/10/22 18:00 Urine Blood Negative (Negative) 03/10/22 18:00 Urine Nitrite Negative (Negative) 03/10/22 18:00 Urine Bilirubin Negative (Negative) 03/10/22 18:00 Urine Urobilinogen <2.0 mg/dL (<2.0) 03/10/22 18:00 Ur Leukocyte Esterase Negative (Negative) 03/10/22 18:00 Urine Opiates Screen Not Detected (NotDetected) 03/10/22 12:55 Ur Oxycodone Screen Not Detected (NotDetected) 03/10/22 12:55 Urine Methadone Screen Not Detected (NotDetected) 03/10/22 12:55 Ur Propoxyphene Screen Not Detected (NotDetected) 03/10/22 12:55 Ur Barbiturates Screen Not Detected (NotDetected) 03/10/22 12:55 U Tricyclic Antidepress Not Detected (NotDetected) 03/10/22 12:55 Ur Phencyclidine Scrn Not Detected (NotDetected) 03/10/22 12:55 Ur Amphetamines Screen Not Detected (NotDetected) 03/10/22 12:55 U Methamphetamines Scrn Not Detected (NotDetected) 03/10/22 12:55 U Benzodiazepines Scrn Not Detected (NotDetected) 03/10/22 12:55 Urine Cocaine Screen Not Detected (NotDetected) 03/10/22 12:55 U Marijuana (THC) Screen Not Detected (NotDetected) 03/10/22 12:55 Coronavirus (PCR) Not Detected (Not Detectd) 03/10/22 15:59 03/14/22 13:28 IDENTIFYING DATA: Patient is a , unemployed, currently staying in a three-quarter house, 31-year-old male who presented to the hospital for suicidal ideation and worsening auditory hallucinations. HPI: Patient presented to the hospital on 03/10/2022, presented to the emergency department by EMS after endorsing suicidal ideation and worsening auditory hallucinations that have been commanding in nature. The patient reports that he felt that his medications have not been helping and that he recently stopped his medications 4 days prior to his presentation at the hospital. He reports that despite stopping the medications, his mood and auditory hallucinations have been worsening since last month. The patient was most recently inpatient at [facility] and was discharged. However, the patient feels that his medications were wrongly adjusted and that he feels that his symptoms are no longer well- controlled. In regards to his current symptoms, the patient reports that he has been experiencing auditory hallucinations in the form of voices around him constantly telling him to kill himself. He is however denying any intention or plan. He reports that the voices have been overwhelming and that he has been having increasing suicidal thoughts. He denies any recent attempts. The patient expresses that he has a desire to live as he is currently working and has housing through a three-quarter house. In regards to other mood symptoms, the patient reports increased depression, hopelessness, helplessness, anhedonia, and decreased appetite. He is denying any manic or hypomanic symptoms. He reports no periods of excessive energy although does report difficulty with sleep. He does express that he has elevated anxiety however does have a significant history of benzodiazepine dependence. Regards substance abuse, the patient does report a history of substance abuse however denies any recent use as he is currently staying three-quarter house. He was recently prescribed Suboxone. PAST PSYCHIATRIC HISTORY: Patient states that he has a history of schizophrenia and benzodiazepine abuse. The patient has trialed numerous psychiatric medications including Abilify, Vistaril, Zoloft, Benadryl, Klonopin, Xanax, Cymbalta, Prolixin, Klonopin, Cymbalta, and trazodone. The patient reports that Invega was the most helpful. His regimen prior to his abrupt discontinuation of medications include Zyprexa, Cymbalta, clonidine, trazodone, Cogentin, and Invega Sustenna. The patient last received Invega Sustenna on 03/06/2022. The patient has had numerous psychiatric hospitalizations including 8 on our psychiatric units over the last 2 years. Patient is open with [facility]. The patient has a history of multiple prior attempts at suicide. PMH: Past Medical History: Hypertension Additional Past Medical History / Comment(s): Severe anxiety, migraines, chronic back pain, difficulty with focusing attention. History of Any Multi-Drug Resistant Organisms: None Reported Past Surgical History: Orthopedic Surgery Additional Past Surgical History / Comment(s): Left wrist open reduction internal fixation, lipoma removed from right posterior shoulder. Past Anesthesia/Blood Transfusion Reactions: No Reported Reaction Past Psychological History: ADD/ADHD, Anxiety, Depression, Schizophrenia Additional Psychological History / Comment(s): OCD, ADD Smoking Status: Current every day smoker Past Alcohol Use History: None Reported Additional Past Alcohol Use History / Comment(s): Patient is a smoker of one pack per day for 4 years. He states he has not had alcohol since his DUI in May 2015. Hx of opiate 3 years ago. Patient reports chewing tobacco and vaping. 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 3-15 vicodin per day. Denies use since treatment.Rx for xanax that patient reports using 2 mg po bid. ALLERGIES: NO KNOWN DRUG ALLERGIES CHEMICAL DEPENDENCY HISTORY: The patient has a reported history of polysubstance abuse however denies any recent use. He is currently negative on his urinary drug screen. He was previously chronically prescribed benzodiazepines from provider in [place]. He is currently on a regimen of Suboxone through [facility]. FAMILY PSYCHIATRIC/SUBSTANCE USE HISTORY: SOCIAL HISTORY: Patient was born and raised in [place], [place]. He attended some college. He has had a history of numerous incarcerations. He has been charged with an OWI and larceny in the past. He is currently . He has a guardian. He is currently staying three-quarter house. He is currently employed with [employer]. MENTAL STATUS EXAM: General Appearance: Patient appears to be stated age is alert, directable, and attempts to cooperate. Patient appears to have disheveled hygiene and grooming. Behavior: Patient is seated without any agitated behavior. Eye contact is appropriate. Speech: Patient's speech is fluent and nonpressured. Mood/Affect: Patient reports their mood is depressed, affect is congruent and blunted. Suicidality/Homicidality: Patient denies having any homicidal ideation intent or plan. Endorses suicidal ideation. Perceptions: Patient denies any visual hallucinations but the patient endorses auditory hallucinations are commanding in nature. Though content/process: There is no evidence of any delusional thought content and thought process is linear and goal-directed. Memory and concentration: AOX3, grossly intact for the purposes of this session. Can spell "WORLD" backwards Judgment and insight: Fair STRENGTHS/WEAKNESSES: Strength is that the patient is resilient, has now obtained housing, and is currently working. Weakness is that the patient is nonadherent with treatment. INTELLECT: average IMPRESSIONS: Schizoaffective disorder Nicotine dependence PLAN: -Patient is admitted under voluntary status to MHU for stabilization of psychiatric symptoms and safety. Patient signed adult voluntary form and medication consent and is placed in patient's chart. -Medications : Invega Sustenna 156 mg as administered on 03/06/2022. We will likely increase it to 234 mg at his next dose. We will continue Cymbalta 60 mg by mouth twice a day for anxiety Continue Suboxone Continue Cogentin 1 mg by mouth twice a day for EPS symptoms Discontinue Zyprexa and start 6 mg of Invega Continue trazodone 100 mg by mouth at bedtime We will start metformin 500 mg by mouth twice a day with meals for weight loss. -Ativan and Haldol PRN for agitation/aggression -Patient was counselled on substance abuse and desired to cut back on use -Patient was informed of the risks, benefits and side effects of the medication and patient verbally consented to taking the medications. Patient signed med consent form and was placed in chart. -Internal Medicine consult to perform medical evaluation and physical. -NRT - nicotine patch -SW on board for discharge planning. Encourage patient to participate in groups to work on coping skills. 03/14/22 13:28
[2022-03-14] MEDS: metFORMIN 500 MG TAB PO SCH (16:21)
[2022-03-14] MEDS: NEOMYCIN-BACITRACIN-POLY OINT 14 GM TUBE TOPICAL SCH (20:23)
[2022-03-14] MEDS: PALIPERIDONE 6 MG TAB.ER.24 PO SCH (20:24)
[2022-03-14] MEDS: traZODone HCL 100 MG TAB PO SCH (20:24)
[2022-03-15] MEDS: DULoxetine HCL 60 MG CAPSULE.DR PO SCH ×2 (08:13→20:30)
[2022-03-15] MEDS: cloNIDine HCL 0.1 MG TAB PO SCH ×3 (08:13→20:31)
[2022-03-15] MEDS: NICOTINE 21MG/24HR PATCH TRANSDERM SCH ×2 (08:13→08:21)
[2022-03-15] MEDS: CEPHALEXIN 500 MG CAP PO SCH ×3 (08:14→20:31)
[2022-03-15] MEDS: NEOMYCIN-BACITRACIN-POLY OINT 14 GM TUBE TOPICAL SCH ×2 (08:14→23:54)
[2022-03-15] MEDS: BENZTROPINE MESYLATE 1 MG TAB PO SCH ×2 (08:14→20:30)
[2022-03-15] MEDS: LORazepam 1 MG TAB PO PRN ×2 (08:16→15:06)
[2022-03-15] MEDS: BUPRENORPHINE SUBLINGUAL SCH ×3 (08:57→23:54)
[2022-03-15] MEDS: NALOXONE SUBLINGUAL SCH ×3 (08:57→23:54)
[2022-03-15] MEDS: metFORMIN 500 MG TAB PO SCH ×2 (09:51→17:59)
[2022-03-15] MEDS ORDERED: TOPIRAMATE 25 MG TAB PO STA (10:08)
--- NOTE | 2022-03-15 14:19 | P.PN ---
Progress Note - Text Progress Note Date: 03/15/22 Interval History: Patient was seen attending group and was directable and agreeable to speak with technical writer and editor in the office., The patient reports that he feels elevated anxiety. He reports that he felt like he was . in panic when he woke up. He reports that his auditory hallucinations continued to be present and continue to be commanding in nature. He is however denying any suicidal or homicidal ideation today. He has been in here with his medication and is not reporting any significant side effects at this time. He is in agreement to starting topamax. He reports no issues regarding his appetite. He states sleep has been poor. Mental Status Exam: General Appearance: Patient appears to be stated age is alert, directable, and cooperative. Behavior: Patient is calmly seated without any agitated behavior. Psychomotor slowing is evident. Speech: Patient's speech is fluent and nonpressured. Mood/Affect: Mood is improving mildly, affect is congruent and blunted. Suicidality/Homicidality: Patient denies having any suicidal or homicidal ideation intent or plan. Perceptions: Patient denies any visual hallucinations however he does endorse auditory hallucinations Though content/process: There is no evidence of any delusional thought content and thought process is linear and goal-directed. Memory and concentration: AOX3, grossly intact for the purposes of this session Judgment and insight: Improving mildly Vital Signs Temp 97.5 F L 03/14/22 05:30 Pulse 107 H 03/15/22 08:14 Resp 18 03/15/22 08:14 BP 138/79 03/15/22 08:14 Pulse Ox 93 L 03/14/22 05:30 FiO2 Assessment Schizoaffective disorder Nicotine dependence Plan: -Patient continues to meet criteria for inpatient psychiatric admission for symptom stabilization and safety. Patient has signed adult voluntary form and medication consent and was placed in patient's chart. -Medications: Invega Sustenna 156 mg as administered on 03/06/2022. We will likely increase it to 234 mg at his next dose. We will continue Cymbalta 60 mg by mouth twice a day for anxiety Continue Suboxone Continue Cogentin 1 mg by mouth twice a day for EPS symptoms Continue Invega 6 mg by mouth at bedtime Continue trazodone 100 mg by mouth at bedtime Continue metformin 500 mg by mouth twice a day and start Topamax 25 mg by mouth twice a day -When necessary Ativan and Haldol for agitation/aggression. -NRT - nicotine patch -SW on board for discharge planning. Encouraged the patient to participate in milieu.
[2022-03-15] MEDS: PALIPERIDONE 6 MG TAB.ER.24 PO SCH (20:30)
[2022-03-15] MEDS: traZODone HCL 100 MG TAB PO SCH (20:30)
[2022-03-15] MEDS: TOPIRAMATE 25 MG TAB PO SCH (20:30)
[2022-03-16] MEDS: BENZTROPINE MESYLATE 1 MG TAB PO SCH ×2 (09:07→20:26)
[2022-03-16] MEDS: CEPHALEXIN 500 MG CAP PO SCH ×4 (09:08→20:25)
[2022-03-16] MEDS: TOPIRAMATE 25 MG TAB PO SCH ×2 (09:08→20:26)
[2022-03-16] MEDS: cloNIDine HCL 0.1 MG TAB PO SCH ×3 (09:09→20:25)
[2022-03-16] MEDS: metFORMIN 500 MG TAB PO SCH ×2 (09:09→17:22)
[2022-03-16] MEDS: DULoxetine HCL 60 MG CAPSULE.DR PO SCH ×2 (09:09→20:26)
[2022-03-16] MEDS: LORazepam 1 MG TAB PO PRN ×2 (09:10→17:53)
[2022-03-16] MEDS: MAG HYDROX/AL HYDROX/SIMETH 30 ML CUP PO PRN ×2 (09:10→15:32)
[2022-03-16] MEDS: NICOTINE 21MG/24HR PATCH TRANSDERM SCH (09:11)
[2022-03-16] MEDS: NEOMYCIN-BACITRACIN-POLY OINT 14 GM TUBE TOPICAL SCH ×2 (09:12→20:28)
[2022-03-16] MEDS: NALOXONE SUBLINGUAL SCH ×3 (09:37→20:28)
[2022-03-16] MEDS: BUPRENORPHINE SUBLINGUAL SCH ×3 (09:37→20:28)
[2022-03-16] MEDS: ONDANSETRON 4 MG TAB PO PRN (10:34)
[2022-03-16] MEDS ORDERED: ONDANSETRON ODT 4 MG TAB PO PRN (11:23)
--- NOTE | 2022-03-16 11:43 | P.PN ---
Progress Note - Text Progress Note Date: 03/16/22 Interval History: Patient was seen attending group and was directable and agreeable to speak with life underwriter in his room. Currently, the patient presented he is not feeling good today. He states that he has been increasingly nauseous and expressing some diarrhea. He denies any fevers or chills. In regards to mood, he reports that his suicidal ideation has decreased however continues to be present. He also reports that he has auditory hallucinations that are commanding in nature that have not changed in intensity over the past 24 hours. He reports generalized paranoia. He denies any visual hallucinations. He has been adherent with his medication is not endorsing any significant side effects. Mental Status Exam: General Appearance: Patient appears to be stated age is alert, directable, and cooperative. Behavior: Patient is calmly seated without any agitated behavior. Normal psychomotor activity today. Speech: Patient's speech is fluent and nonpressured. Mood/Affect: Mood is "not good," affect is congruent and blunted. Somewhat malaised. Suicidality/Homicidality: Patient denies having any suicidal or homicidal ideation intent or plan. Perceptions: Patient denies any visual hallucinations however he does endorse auditory hallucinations Though content/process: There is no evidence of any delusional thought content and thought process is linear and goal-directed. Memory and concentration: AOX3, grossly intact for the purposes of this session Judgment and insight: Improving mildly Vital Signs Temp 98.7 F 03/16/22 06:24 Pulse 81 03/16/22 06:24 Resp 16 03/16/22 06:24 BP 113/58 03/16/22 06:24 Pulse Ox 93 L 03/14/22 05:30 FiO2 Assessment Schizoaffective disorder Nicotine dependence Plan: -Patient continues to meet criteria for inpatient psychiatric admission for symptom stabilization and safety. Patient has signed adult voluntary form and medication consent and was placed in patient's chart. -Medications: Invega Sustenna 156 mg as administered on 03/06/2022. We will likely increase it to 234 mg at his next dose. Continue Cymbalta 60 mg by mouth twice a day for anxiety Continue Suboxone Continue Cogentin 1 mg by mouth twice a day for EPS symptoms Continue Invega 6 mg by mouth at bedtime Continue trazodone 100 mg by mouth at bedtime Continue metformin 500 mg by mouth twice a day Continue Topamax 25 mg by mouth twice a day Zofran prn -When necessary Ativan and Haldol for agitation/aggression. -NRT - nicotine patch -SW on board for discharge planning. Encouraged the patient to participate in milieu.
[2022-03-16] MEDS: LOPERAMIDE 2 MG CAP PO PRN ×2 (18:40→20:45)
[2022-03-16] MEDS: traZODone HCL 100 MG TAB PO SCH (20:25)
[2022-03-16] MEDS: PALIPERIDONE 6 MG TAB.ER.24 PO SCH (20:26)
[2022-03-17] MEDS: TOPIRAMATE 25 MG TAB PO SCH ×2 (08:07→20:40)
[2022-03-17] MEDS: BENZTROPINE MESYLATE 1 MG TAB PO SCH ×2 (08:07→20:40)
[2022-03-17] MEDS: LORazepam 1 MG TAB PO PRN ×3 (08:07→21:55)
[2022-03-17] MEDS: CEPHALEXIN 500 MG CAP PO SCH ×3 (08:07→20:40)
[2022-03-17] MEDS: metFORMIN 500 MG TAB PO SCH ×2 (08:07→16:27)
[2022-03-17] MEDS: DULoxetine HCL 60 MG CAPSULE.DR PO SCH ×2 (08:07→20:39)
[2022-03-17] MEDS: NICOTINE 21MG/24HR PATCH TRANSDERM SCH (08:07)
[2022-03-17] MEDS: cloNIDine HCL 0.1 MG TAB PO SCH ×3 (08:07→20:41)
[2022-03-17] MEDS: NEOMYCIN-BACITRACIN-POLY OINT 14 GM TUBE TOPICAL SCH ×2 (08:09→20:41)
[2022-03-17] MEDS: ONDANSETRON 4 MG TAB PO PRN ×2 (08:10→20:42)
[2022-03-17] MEDS: NALOXONE SUBLINGUAL SCH ×2 (09:08→16:33)
[2022-03-17] MEDS: BUPRENORPHINE SUBLINGUAL SCH ×2 (09:08→16:33)
--- NOTE | 2022-03-17 12:46 | P.PN ---
Progress Note - Text Progress Note Date: 03/17/22 Interval History: Patient was seen attending group and was directable and agreeable to speak with press writer in his room. Patient continues to report significant nausea and diarrhea. He states that he continues to experience auditory hallucinations in the forms of people around him even though they may not be speaking. He does report generalized paranoia feeling like others are constantly judging him or wishing him ill. He states that he feels this way as the auditory hallucinations are of those around him and feels like they are speaking about him and commanding him to do things. He has been aherent with his medication and is unsure of side effects due to his ongoing issues with nausea and diarrhea. He denies any suicidal or homicidal ideation, intention, and/or plan today. Mental Status Exam: General Appearance: Patient appears to be stated age is alert, directable, and cooperative. Behavior: Patient is calmly seated without any agitated behavior. Normal psychomotor activity today. Speech: Patient's speech is fluent and nonpressured. Mood/Affect: Mood is "not good," affect is congruent and blunted. Malaised. Suicidality/Homicidality: Patient denies having any suicidal or homicidal ideation intent or plan. Perceptions: Patient denies any visual hallucinations however he does endorse auditory hallucinations Though content/process: Patient endorses paranoia from others and those around him. Process is linear. Memory and concentration: AOX3, grossly intact for the purposes of this session Judgment and insight: Improving mildly Vital Signs Temp 97.7 F 03/17/22 06:45 Pulse 75 03/17/22 06:45 Resp 14 03/17/22 06:45 BP 104/50 03/17/22 06:45 Pulse Ox 98 03/17/22 06:45 FiO2 Assessment Schizoaffective disorder Nicotine dependence Plan: -Patient continues to meet criteria for inpatient psychiatric admission for symptom stabilization and safety. Patient has signed adult voluntary form and medication consent and was placed in patient's chart. -Medications: Invega Sustenna 156 mg as administered on 03/06/2022. We will likely increase it to 234 mg at his next dose. Continue Cymbalta 60 mg by mouth twice a day for anxiety Continue Suboxone Continue Cogentin 1 mg by mouth twice a day for EPS symptoms Increase invega to 9 mg by mouth at bedtime Continue trazodone 100 mg by mouth at bedtime Continue metformin 500 mg by mouth twice a day Continue Topamax 25 mg by mouth twice a day Zofran prn -When necessary Ativan and Haldol for agitation/aggression. -NRT - nicotine patch -SW on board for discharge planning. Encouraged the patient to participate in milieu.
[2022-03-17 15:39] LABS: Basophils % (A) 1 %; Eosinophils # (A) 0.3 k/uL (0-0.7); Eosinophils % (A) 4 %; HCT 46.8 % (39.0-53.0); HGB 15.5 gm/dL (13.0-17.5); Lymphocytes # (A) 2.1 k/uL (1.0-4.8); Lymphocytes % (A) 29 %; MCH 29.1 pg (25.0-35.0); Mean Platelet Volume 7.6; Monocytes # (A) 0.6 k/uL (0-1.0); Monocytes % (A) 8 %; Neutrophils % (A) 56 %; Platelet Count 332 k/uL (150-450); RBC 5.32 m/uL (4.30-5.90); RDW 12.4 % (11.5-15.5); WBC 7.2 k/uL (3.8-10.6)
[2022-03-17 15:50] LABS: Albumin 4.5 g/dL (3.5-5.0); Calcium 9.2 mg/dL (8.4-10.2); Potassium 4.6 mmol/L (3.5-5.1); Total Bilirubin 0.5 mg/dL (0.2-1.3); Total Protein 7.1 g/dL (6.3-8.2)
[2022-03-17] MEDS: PALIPERIDONE 3 MG TAB.ER.24 PO SCH (20:39)
[2022-03-17] MEDS: traZODone HCL 100 MG TAB PO SCH (20:40)
[2022-03-17] MEDS: BUPRENORPHINE-NALOX 8-2 MG TAB 1 EACH TAB.SUBL SL SCH (20:41)
[2022-03-18] MEDS: CEPHALEXIN 500 MG CAP PO SCH ×3 (09:35→20:22)
[2022-03-18] MEDS: metFORMIN 500 MG TAB PO SCH ×2 (09:35→17:54)
[2022-03-18] MEDS: BENZTROPINE MESYLATE 1 MG TAB PO SCH ×2 (09:35→20:23)
[2022-03-18] MEDS: BUPRENORPHINE-NALOX 8-2 MG TAB 1 EACH TAB.SUBL SL SCH ×3 (09:35→21:00)
[2022-03-18] MEDS: NEOMYCIN-BACITRACIN-POLY OINT 14 GM TUBE TOPICAL SCH ×2 (09:36→20:23)
[2022-03-18] MEDS: TOPIRAMATE 25 MG TAB PO SCH ×2 (09:36→20:23)
[2022-03-18] MEDS: cloNIDine HCL 0.1 MG TAB PO SCH ×3 (09:36→20:23)
[2022-03-18] MEDS: NICOTINE 21MG/24HR PATCH TRANSDERM SCH (09:36)
[2022-03-18] MEDS: DULoxetine HCL 60 MG CAPSULE.DR PO SCH ×2 (09:36→20:23)
[2022-03-18] MEDS: LOPERAMIDE 2 MG CAP PO PRN (14:46)
[2022-03-18] MEDS: ONDANSETRON 4 MG TAB PO PRN (14:46)
[2022-03-18] MEDS: traZODone HCL 100 MG TAB PO SCH (20:22)
[2022-03-18] MEDS: PALIPERIDONE 3 MG TAB.ER.24 PO SCH (20:22)
[2022-03-18] MEDS: LORazepam 1 MG TAB PO PRN (20:24)
--- NOTE | 2022-03-18 21:39 | P.PN ---
Progress Note - Text Progress Note Date: 03/18/22 Interval history: Patient was seen resting in his bed and was directable and agreeable to speak with signwriter. He reports poor mood that he states is due to having the "flu". He has seen the medical doctor and is taking Zofran for nausea and Imodium for diarrhea.He also complains of racing thoughts, auditory hallucinations of "chatter", and increased anxiety. He took an Ativan 1mg x 1 this evening for anxiety. At this time patient denies any suicidal or homicidal ideation, intent or plan. Denies any visual hallucinations. Patient denies any side effects from the medications and has been compliant with meds except for refusing some doses of the Clonidine. Mental status exam: General Appearance: Patient appears to be stated age is alert, directable, and cooperative. Behavior: No agitated behavior. Patient is calm and directable. Laying in bed. Speech: Patient's speech is fluent and non-pressured. Mood/Affect: Mood is poor, affect is congruent and constricted. Suicidality/Homicidality: Patient denies having any suicidal or homicidal ideation intent or plan. Perceptions: Patient denies any auditory or visual hallucinations. Though content/process: There is no evidence of any delusional thought content and thought process is linear and goal-directed. Memory and concentration: AOX3, grossly intact for the purposes of this session Judgment and insight: improving mildly Assessment/Plan: Continue with current diagnosis. Patient continues to meet criteria for inpatient psychiatric admission for symptom stabilization and safety. Patient will be maintained on current psychotropic medication regimen. Monitor for medication compliance and for any psychotropic medication side effects. Will continue to monitor ongoing response to treatment. Encouraged participation in milieu.
[2022-03-19] MEDS: cloNIDine HCL 0.1 MG TAB PO SCH ×3 (08:27→20:27)
[2022-03-19] MEDS: NEOMYCIN-BACITRACIN-POLY OINT 14 GM TUBE TOPICAL SCH ×2 (08:27→20:27)
[2022-03-19] MEDS: LORazepam 1 MG TAB PO PRN ×3 (08:27→20:28)
[2022-03-19] MEDS: ONDANSETRON 4 MG TAB PO PRN ×2 (08:27→15:15)
[2022-03-19] MEDS: DULoxetine HCL 60 MG CAPSULE.DR PO SCH ×2 (08:27→19:59)
[2022-03-19] MEDS: NICOTINE 21MG/24HR PATCH TRANSDERM SCH (08:28)
[2022-03-19] MEDS: MAG HYDROX/AL HYDROX/SIMETH 30 ML CUP PO PRN (08:28)
[2022-03-19] MEDS: BENZTROPINE MESYLATE 1 MG TAB PO SCH ×2 (08:28→20:26)
[2022-03-19] MEDS: metFORMIN 500 MG TAB PO SCH ×2 (08:28→20:26)
[2022-03-19] MEDS: TOPIRAMATE 25 MG TAB PO SCH ×2 (08:28→20:26)
[2022-03-19] MEDS: BUPRENORPHINE-NALOX 8-2 MG TAB 1 EACH TAB.SUBL SL SCH ×3 (09:46→21:10)
[2022-03-19] MEDS: LOPERAMIDE 2 MG CAP PO PRN (15:15)
[2022-03-19] MEDS: traZODone HCL 100 MG TAB PO SCH (20:26)
[2022-03-19] MEDS: PALIPERIDONE 3 MG TAB.ER.24 PO SCH (20:26)
--- NOTE | 2022-03-19 21:52 | P.PN ---
Progress Note - Text Progress Note Date: 03/19/22 Interval history: Patient was seen resting in his bed again today and was directable and agreeable to speak with automobile service writer. He reports poor mood and took an Ativan 1mg po x 1 this afternoon for anxiety. He has been refusing the Clonidine that is prescribed for anxiety because he reports it makes his blood pressure low, reports the Vistaril is not helpful for him, and states he prefers to have a benzo for anxiety. He continues to have nausea and diarrhea that started after he was started on Metformin during this hospitalization and could be a side effect of the Metformin. He continues to endorse auditory hallucinations of "chitter chatter". At this time patient denies any suicidal or homicidal ideation, intent or plan. Denies any visual hallucinations. He is compliant with meds except for refusing his afternoon Cymbalta today and refusing the Clonidine. Mental status exam: General Appearance: Patient appears to be stated age is alert, directable, and cooperative. Behavior: No agitated behavior. He isolates to his room, withdrawn. Speech: Patient's speech is fluent and non-pressured. Mood/Affect: Mood is poor, affect is blunted, congruent and constricted. Suicidality/Homicidality: Patient denies having any suicidal or homicidal ideation intent or plan. Perceptions: He reports AH of "chitter chatter". He denies VH. Though content/process: There is no evidence of any delusional thought content and thought process is linear and goal-directed. Memory and concentration: AOX3, grossly intact for the purposes of this session Judgment and insight: improving mildly Assessment/Plan: Continue with current diagnosis. Patient continues to meet criteria for inpatient psychiatric admission for symptom stabilization and safety. Discontinue Metformin due to nausea/diarrhea. Monitor for medication compliance and for any psychotropic medication side effec ts. Will continue to monitor ongoing response to treatment. Encouraged participation in milieu.
[2022-03-20] MEDS: DULoxetine HCL 60 MG CAPSULE.DR PO SCH ×2 (08:20→19:57)
[2022-03-20] MEDS: TOPIRAMATE 25 MG TAB PO SCH ×2 (08:21→19:57)
[2022-03-20] MEDS: cloNIDine HCL 0.1 MG TAB PO SCH ×3 (08:21→19:37)
[2022-03-20] MEDS: BENZTROPINE MESYLATE 1 MG TAB PO SCH (08:21)
[2022-03-20] MEDS: NICOTINE 21MG/24HR PATCH TRANSDERM SCH (08:21)
[2022-03-20] MEDS: LORazepam 1 MG TAB PO PRN ×2 (08:23→19:58)
[2022-03-20] MEDS: BUPRENORPHINE-NALOX 8-2 MG TAB 1 EACH TAB.SUBL SL SCH ×3 (08:25→21:05)
[2022-03-20] MEDS: NEOMYCIN-BACITRACIN-POLY OINT 14 GM TUBE TOPICAL SCH ×2 (08:26→19:57)
[2022-03-20] MEDS: MAG HYDROX/AL HYDROX/SIMETH 30 ML CUP PO PRN (12:40)
--- NOTE | 2022-03-20 12:47 | P.PN ---
Progress Note - Text Progress Note Date: 03/20/22 S&O: Patient was seen in rounds. He was admitted here since he reported of worsening of hearing voices and suicide thoughts. His psych H&P shows the diagnosis of schizoaffective disorder and nicotine dependence. He is on several medications including Suboxone, Cogentin, clonidine Cymbalta, Invega, trazodone, Topamax and when necessary Ativan's. He said he was started on Suboxone for his anxiety. He said Ativan helps with his voices for a short time. He said the voices are coming from inside his head. He does not have any objective signs of psychosis his speech is spontaneous relevant and goal-directed. He said he was abusing pain pills in the past and was recently started on Suboxone about 2 weeks ago for anxiety. Patient was advised that he has 3 risk factors for TD including EPS, diagnosis of schizoaffective disorder and use of Cogentin. He agreed to stop Cogentin and to discuss the need for antipsychotic medications with his outpatient doctor. He was also advised about the use of Suboxone for anxiety and was asked to work with his outpatient doctor when he leaves the hospital he agreed. He said the voices have decreased and suicidal thoughts are also minimal. But he wants to continue his Ativan and Suboxone even after being discharged from the hospital. His discharge plan will be discussed tomorrow. This is a right ambulatory male with good hygiene. He is polite and cooperative. He does not show any psychomotor agitation or retardation. His speech is spontaneous relevant and goal-directed. His mood is euthymic and affect is appropriate to the thought content. Even though he reports of hearing voices he does not have any objective signs of psychosis. His suicide thoughts appear to be unreliable since he has good plans for his treatment after discharge and also about the place to live. He said he will stay in [facility] for a while until he can find his own place to live. His sensorium is clear A&P: Will discontinue Cogentin and will be seen by the medical doctor regarding his request to stop Clonidine. Continue therapy and other plan.discussed discharge plan tomorrow in the treatment team.
[2022-03-20] MEDS: PALIPERIDONE 3 MG TAB.ER.24 PO SCH (19:57)
[2022-03-20] MEDS: traZODone HCL 100 MG TAB PO SCH (19:57)
[2022-03-21 06:50] VITALS: BP 105/53; PULSE 63; RESP 17; TEMP 97.7
[2022-03-21] MEDS: cloNIDine HCL 0.1 MG TAB PO SCH (07:59)
[2022-03-21] MEDS: DULoxetine HCL 60 MG CAPSULE.DR PO SCH (08:01)
[2022-03-21] MEDS: LORazepam 1 MG TAB PO PRN (08:01)
[2022-03-21] MEDS: NICOTINE 21MG/24HR PATCH TRANSDERM SCH (08:01)
[2022-03-21] MEDS: TOPIRAMATE 25 MG TAB PO SCH (08:01)
[2022-03-21] MEDS: NEOMYCIN-BACITRACIN-POLY OINT 14 GM TUBE TOPICAL SCH (08:02)
[2022-03-21] MEDS: BUPRENORPHINE-NALOX 8-2 MG TAB 1 EACH TAB.SUBL SL SCH (09:13)
--- NOTE | 2022-03-21 12:18 | P.DS ---
Providers Date of admission: 03/13/22 15:11 Expected date of discharge: 03/21/22 Attending physician: Chetan Valentino MD Consults: 03/13/22 09:23 Consult Physician Routine Consulting Provider: Adam Rivero Consult Reason/Comments: depression/pysch management Do you want consulting provider notified?: Yes 03/13/22 15:17 Consult Physician Routine Consulting Provider: Can Maxwell Consult Reason/Comments: H&P and medical Do you want consulting provider notified?: Yes Primary care physician: [facility] Course: Patient had his psychiatric H&P done on 03/14/2022 by and general medical H&P done by Dr. Carrillo on the same day. He was continued on Cymbalta 60 mg twice a day and Invega 9 mg by mouth at bedtime. He was also given Haldol, Ativan, Vistaril on a when necessary basis for anxiety and aggressive behavior. He took his medications without any adverse effects. He also attended group therapy, individual therapy, recreational therapy and occupational therapy. He gradually improved and became free of suicide thoughts and his mood was more stable. However he was asking for when necessary Ativan quite often and he was counseled about all these things. His progress and discharge plans were discussed by the treatment team this morning and it was agreed to discharge him to the residential this afternoon. Patient also agreed with this. Discharge diagnosis: 1 schizoaffective disorder. 2. Sedative hypnotic use disorder moderate. 3. Opioid use disorder mild to moderate. 4. hypertension. Assessment: Discharge diagnosis: Schizoaffective disorder, sedative hypnotic use disorder moderate, opioid use disorder mild to moderate and hypertension. Patient Condition at Discharge: Good Plan - Discharge Summary Discharge Rx Participant: Yes New Discharge Prescriptions: New cloNIDine HCL [Catapres] 0.1 mg PO TID 30 Days #90 tab Smhvlvap-Ompsvexzzr-Yfkl Oint [Triple Antibiotic Ointment] 1 applic TOPICAL BID 7 Days #1 each Acetaminophen Tab [Tylenol] 650 mg PO Q4HR PRN tab PRN Reason: Pain/Discomfort Paliperidone [Invega] 9 mg PO HS 30 Days #30 tab Mag Hydrox/Al Hydrox/Simeth [Maalox] 30 ml PO Q4HR PRN ml PRN Reason: GI Upset Continue Docusate Sodium [Dok] 100 mg PO BID PRN PRN Reason: Constipation Paliperidone IM [Invega Sustenna] 156 mg IM QMONTHLY DULoxetine HCL [Cymbalta] 60 mg PO BID 30 Days cap hydrOXYzine pamoate 50 mg PO TID PRN 30 Days #90 cap PRN Reason: Anxiety Discontinued Benztropine Mesylate [Cogentin] 1 mg PO BID Buprenorphine HCl/Naloxone HCl [Suboxone 8 mg-2 mg Sl Film] 1 film SL TID OLANZapine [ZyPREXA] 20 mg PO HS traZODone HCL [Desyrel] 100 mg PO HS polyethylene glycoL 3350 [Clearlax] 1 packet PO DAILY PRN PRN Reason: Constipation Testosterone Cypionate [Depo-Testosterone] 100 mg IM Q28D cloNIDine HCL [Catapres] 0.1 mg PO QID Nicotine 21Mg/24Hr Patch [Habitrol] 1 patch TRANSDERM DAILY Discharge Medication List Docusate Sodium [Dok] 100 mg PO BID PRN 02/27/22 [History] Paliperidone IM [Invega Sustenna] 156 mg IM QMONTHLY 03/10/22 [History] Acetaminophen Tab [Tylenol] 650 mg PO Q4HR PRN tab 03/21/22 [Rx] DULoxetine HCL [Cymbalta] 60 mg PO BID 30 Days cap 03/21/22 [Rx] Mag Hydrox/Al Hydrox/Simeth [Maalox] 30 ml PO Q4HR PRN ml 03/21/22 [Rx] Wjobysup-Eimblutgyg-Tmzy Oint [Triple Antibiotic Ointment] 1 applic TOPICAL BID 7 Days #1 each 03/21/22 [Rx] Paliperidone [Invega] 9 mg PO HS 30 Days #30 tab 03/21/22 [Rx] cloNIDine HCL [Catapres] 0.1 mg PO TID 30 Days #90 tab 03/21/22 [Rx] hydrOXYzine pamoate 50 mg PO TID PRN 30 Days #90 cap 03/21/22 [Rx] Follow up Appointment(s)/Referral(s): [facility] [Outside] - 03/22/22 4:00 pm (03-22-22 at 4:00 with Myrna Machado 03-27-22 at 1:[address] Rutledge ) Becky Cristobal MD [Primary Care Provider] - 1-2 days Activity/Diet/Wound Care/Special Instructions: Avoid the use of street drugs and alcohol. Take all prescriptions as prescribed. When you are in need of refills on your medications, please contact your medical provider and/or outpatient psychiatrist to have this done. Please go to scheduled outpatient appointment for aftercare treatment. If symptoms return or become worse, call the crisis line at and/or go to the nearest emergency room for evaluation.
== END 2022-03-21 13:10 | disposition home or self-care (01) | DRG 885 ==
LOC: EC 11:13 → 3MHU 03-13 15:11
PROVIDERS: ADMIT Psychiatry & Neurology Psychiatry; ATTEND Psychiatry & Neurology Psychiatry
DX: F25.9 Schizoaffective disorder, unspecified (principal); R45.851 Suicidal ideations; L03.314 Cellulitis of groin; I10 Essential (primary) hypertension; F41.9 Anxiety disorder, unspecified; F32.A Depression, unspecified; F17.200 Nicotine dependence, unspecified, uncomplicated; Z79.899 Other long term (current) drug therapy; Z20.822 Contact with and (suspected) exposure to COVID-19; F11.90 Opioid use, unspecified, uncomplicated; F13.90 Sedative, hypnotic, or anxiolytic use, unspecified, uncomplicated; F42.9 Obsessive-compulsive disorder, unspecified; F90.9 Attention-deficit hyperactivity disorder, unspecified type
CPT/HCPCS: 36415; 80053; 80061; 80306; 81003; 82075; 83036; 84443; 85025; 87635; 99285

== ENCOUNTER 2022-04-18 10:38 | Observation (INO) | payer OTHER ==
[2022-04-18 11:24] LABS: Glucose,Whole Blood 127 mg/dL (70-110)
--- NOTE | 2022-04-18 11:26 | ED ---
Neuro HPI - General Chief Complaint: Neuro Symptoms/Deficit Stated Complaint: rt sided facial numbness Time Seen by Provider: 04/18/22 11:01 Source: patient Mode of arrival: ambulatory Limitations: no limitations - History of Present Illness Is the patient presenting with stroke symptoms?: Yes Last Known Well Date: 04/17/22 Last Known Well Time: 17:00 Initial Comments: Patient is a 32-year-old male presenting to the emergency room with complaints of onset of right-sided facial weakness which she noticed after 5 PM yesterday when he was eating dinner. He is complaining of a banded headache ongoing since that same time as well. Upon examination he also reveals some right arm paresthesia without any other focal neurological deficits. He denies any recent viral illnesses. He has a past medical history significant for bipolar depression, anxiety, migraines, schizophrenia, pituitary disorder with low testosterone levels on testosterone injections. - Related Data Home Medications: Home Medications Medication Instructions Recorded Confirmed Docusate Sodium [Dok] 100 mg PO BID PRN 02/27/22 03/13/22 Previous Rx's Medication Instructions Recorded Acetaminophen Tab [Tylenol] 650 mg PO Q4HR PRN tab 03/21/22 DULoxetine HCL [Cymbalta] 60 mg PO BID #60 cap 03/21/22 DULoxetine HCL [Cymbalta] 60 mg PO BID 30 Days cap 03/21/22 Mag Hydrox/Al Hydrox/Simeth 30 ml PO Q4HR PRN ml 03/21/22 [Maalox] Rrdffvrp-Wmewcuudpd-Skfj Oint 1 applic TOPICAL BID 7 Days #1 each 03/21/22 [Triple Antibiotic Ointment] Paliperidone IM [Invega Sustenna] 156 mg IM QMONTHLY 30 Days #1 ml 03/21/22 Paliperidone [Invega] 9 mg PO HS 30 Days #30 tab 03/21/22 cloNIDine HCL [Catapres] 0.1 mg PO TID 30 Days #90 tab 03/21/22 hydrOXYzine pamoate 50 mg PO TID PRN 30 Days #90 cap 03/21/22 Allergies/Adverse Reactions: Allergies Allergy/AdvReac Type Severity Reaction Status Date / Time No Known Allergies Allergy Verified 04/18/22 11:02 Review of Systems ROS Statement: Those systems with pertinent positive or pertinent negative responses have been documented in the HPI. ROS Other: All systems not noted in ROS Statement are negative. General Exam Limitations: no limitations General appearance: alert, in no apparent distress Head exam: Present: atraumatic, normocephalic, normal inspection Eye exam: Present: normal appearance, PERRL, EOMI. Absent: scleral icterus, conjunctival injection, periorbital swelling ENT exam: Present: mucous membranes moist Neck exam: Present: normal inspection. Absent: lymphadenopathy Respiratory exam: Present: normal lung sounds bilaterally. Absent: respiratory distress, wheezes, rales, rhonchi, stridor Cardiovascular Exam: Present: regular rate, normal rhythm, normal heart sounds. Absent: systolic murmur, diastolic murmur, rubs, gallop, clicks GI/Abdominal exam: Present: soft, normal bowel sounds. Absent: distended, tenderness, guarding, rebound, rigid Extremities exam: Present: normal inspection, full ROM. Absent: pedal edema, joint swelling Back exam: Present: normal inspection, full ROM Expanded Patient oriented to: Present: person, place, time Speech: Present: fluid speech Cranial nerves: EOM's Intact: Normal, Gag Reflex: Normal, Facial Sensation: Abn ormal Right, Facial Palsy without Forehead Movement: Abnormal Right Cerebellar function: Finger to Nose: Normal Sensory exam: Upper Extremity Light Touch: Abnormal Right, Lower Extremity Light Touch: Normal Motor strength exam: RUE: 5, LUE: 5, RLE: 5, LLE: 5 Eye Response: (4) open spontaneously Motor Response: (6) obeys commands Verbal Response: (5) oriented Leia Total: 15 Psychiatric exam: Present: normal affect, normal mood Skin exam: Present: warm, dry, intact, normal color. Absent: rash Stroke MDM - Lab Data Result diagrams: 04/18/22 11:34 04/18/22 11:34 Lab Results 04/18/22 04/18/22 04/18/22 Range/Units 11:22 11:34 11:34 WBC 7.4 (3.8-10.6) k/uL RBC 5.31 (4.30-5.90) m/uL Hgb 15.3 (13.0-17.5) gm/dL Hct 44.6 (39.0-53.0) % MCV 84.1 (80.0-100.0) fL MCH 28.9 (25.0-35.0) pg MCHC 34.3 (31.0-37.0) g/dL RDW 12.7 (11.5-15.5) % Plt Count 232 (150-450) k/uL MPV 7.8 Neutrophils % 61 % Lymphocytes % 23 % Monocytes % 10 % Eosinophils % 3 % Basophils % 1 % Neutrophils # 4.5 (1.3-7.7) k/uL Lymphocytes # 1.7 (1.0-4.8) k/uL Monocytes # 0.7 (0-1.0) k/uL Eosinophils # 0.2 (0-0.7) k/uL Basophils # 0.1 (0-0.2) k/uL PT 10.3 (9.0-12.0) sec INR 1.0 (<1.2) APTT 25.6 (22.0-30.0) sec Sodium (137-145) mmol/L Potassium (3.5-5.1) mmol/L Chloride (98-107) mmol/L Carbon Dioxide (22-30) mmol/L Anion Gap mmol/L BUN (9-20) mg/dL Creatinine (0.66-1.25) mg/dL Est GFR (CKD-EPI)AfAm (>60 ml/min/1.73 sqM) Est GFR (CKD-EPI)NonAf (>60 ml/min/1.73 sqM) Glucose (74-99) mg/dL POC Glucose (mg/dL) 127 H (70-110) mg/dL POC Glu Construction Flagger ID Debra Mullen Calcium (8.4-10.2) mg/dL Total Bilirubin (0.2-1.3) mg/dL AST (17-59) U/L ALT (4-49) U/L Alkaline Phosphatase (38-126) U/L Troponin I (0.000-0.034) ng/mL Total Protein (6.3-8.2) g/dL Albumin (3.5-5.0) g/dL Influenza Type A (PCR) (Not Detectd) Influenza Type B (PCR) (Not Detectd) RSV (PCR) (Not Detectd) SARS-CoV-2 (PCR) (Not Detectd) 12/06/22 12/06/22 12/06/22 Range/Units 11:34 11:34 11:36 WBC (3.8-10.6) k/uL RBC (4.30-5.90) m/uL Hgb (13.0-17.5) gm/dL Hct (39.0-53.0) % MCV (80.0-100.0) fL MCH (25.0-35.0) pg MCHC (31.0-37.0) g/dL RDW (11.5-15.5) % Plt Count (150-450) k/uL MPV Neutrophils % % Lymphocytes % % Monocytes % % Eosinophils % % Basophils % % Neutrophils # (1.3-7.7) k/uL Lymphocytes # (1.0-4.8) k/uL Monocytes # (0-1.0) k/uL Eosinophils # (0-0.7) k/uL Basophils # (0-0.2) k/uL PT (9.0-12.0) sec INR (<1.2) APTT (22.0-30.0) sec Sodium 137 (137-145) mmol/L Potassium 4.5 (3.5-5.1) mmol/L Chloride 103 (98-107) mmol/L Carbon Dioxide 27 (22-30) mmol/L Anion Gap 7 mmol/L BUN 12 (9-20) mg/dL Creatinine 0.77 (0.66-1.25) mg/dL Est GFR (CKD-EPI)AfAm >90 (>60 ml/min/1.73 sqM) Est GFR (CKD-EPI)NonAf >90 (>60 ml/min/1.73 sqM) Glucose 115 H (74-99) mg/dL POC Glucose (mg/dL) (70-110) mg/dL POC Glu Construction Flagger ID Calcium 9.4 (8.4-10.2) mg/dL Total Bilirubin 0.7 (0.2-1.3) mg/dL AST 58 (17-59) U/L ALT 101 H (4-49) U/L Alkaline Phosphatase 56 (38-126) U/L Troponin I <0.012 (0.000-0.034) ng/mL Total Protein 7.2 (6.3-8.2) g/dL Albumin 4.4 (3.5-5.0) g/dL Influenza Type A (PCR) Not Detected (Not Detectd) Influenza Type B (PCR) Not Detected (Not Detectd) RSV (PCR) Not Detected (Not Detectd) SARS-CoV-2 (PCR) Not Detected (Not Detectd) - NIH Stroke Scale 1a. Level of Consciousness: (0) alert 1b. LOC Questions: (0) answers correctly 1c. LOC Commands: (0) performs tasks correctly 2. Best Gaze: (0) normal 3. Visual: (0) no visual loss 4. Facial Palsy: (2) partial paralysis 5a. Motor Arm Left: (0) no drift 5b. Motor Arm Right: (0) no drift 6a. Motor Leg Left: (0) no drift 6b. Motor Leg Right: (0) no drift 7. Limb Ataxia: (1) present 1 limb 8. Sensory: (0) normal 9. Best Language: (0) no aphasia 10. Dysarthria: (0) normal 11. Extinction/Inattention: (0) no abnormality - Thrombolytic Inclusion/Exclusion Thrombolytic Exclusion Criteria: Symptom Onset > 4.5 Hours Thrombolytic Contraindications: Risks Outweigh Benefits - Medical Decision Making 32-year-old male presenting to the emergency room with right-sided facial or seashell along with facial droop onset at 5 PM yesterday 04/17/2022. High probability for Schumacher's palsy however associated headache along with paresthesias of the right upper extremity only no other focal neurological deficits. Due to associated symptoms neurology was available in the emergency room and evaluated patient. Will place patient" stroke protocol.. NIH score of 1. Risks of TPA outweigh benefits and patient is not a TPA candidat e. Case discussed with neurologist physician surgeon along, Dr. Dunn with Dr. Ceballos. CBC without abnormalities, CMP shows a slightly elevated ALP at 101 and glucose at 150 otherwise no acute abnormalities. Cephid swab negative for RSV, COVID and influenza. Coags normal. Troponin negative. No indication for further laboratory studies. CT the brain without contrast image interpreted by me showing no intracranial hemorrhage or acute ischemia. CTA of the head and neck image interpreted by me reveals no aneurysms or occlusive disease. Radiologist reports also reviewed. Orders for MRI/MRAs placed per Dr. Quiroz recommendations. Spoke with Dr. Villatoro regarding presentation and neurology recommendation f or observation admission for further evaluation and treatment. Advised Valtrex and prednisone for Schumacher's palsy order placed. Consult to neurology who are evaluated patient also placed. No further orders received. Will place admission orders to [facility] emergency department physician for observation admission. Case discussed with Dr. Ceballos. - Radiology Data Radiology results: report reviewed, image reviewed CTA head and neck interpretation by radiologist neck: Widely patent vertebral and carotid arteries of the neck. Head: No large vessel intracranial arterial occlusion significant stenosis or aneurysmal changes seen. CT brain without contrast impression for radiologist no acute intracranial abnormality seen. Moderate chronic ethmoid and maxillary sinus disease. Small air-fluid levels may be present in both maxillary sinuses. EKG completed at 1125 interpreted by ri shows sinus tachycardia, ventricular rate 120 bpm, NJ interval 147 ms, QRS duration 86 ms, QT/QTC 346/417, PRT axes 43, 103, 38. Past Medical History Past Medical History: Hypertension Additional Past Medical History / Comment(s): Severe anxiety, migraines, chronic back pain, difficulty with focusing attention. History of Any Multi-Drug Resistant Organisms: None Reported Past Surgical History: Orthopedic Surgery Additional Past Surgical History / Comment(s): Left wrist open reduction internal fixation, lipoma removed from right posterior shoulder. Past Anesthesia/Blood Transfusion Reactions: No Reported Reaction Past Psychological History: ADD/ADHD, Anxiety, Depression, Schizophrenia Smoking Status: Current every day smoker Past Alcohol Use History: None Reported Past Drug Use History: None Reported - Past Family History Father Family Medical History: Cancer, CVA/TIA, Myocardial Infarction ([place]) Additional Family Medical History / Comment(s): Father is alive at age 58. Patient states he has a rare cancer and undergoing chemotherapy. Mother Family Medical History: Coronary Artery Disease (CAD), Hypertension, Syncope Additional Family Medical History / Comment(s): Mother is alive at age 54 and also has history of anxiety and depression. Sister(s) History Unknown: Yes Family Medical History: No Reported History Course Vital Signs 04/18/22 04/18/22 04/18/22 10:59 11:36 12:35 Temperature 98 F 97.8 F Pulse Rate 119 H 111 H Respiratory 18 16 Rate Blood Pressure 128/68 117/78 O2 Sat by Pulse 96 95 Oximetry - Consultations Consultation #1: Dr. Dunn in the emergency room and available for consultation and evaluation of patient shortly after his arrival to the emergency room. Neurological evaluation by Dr. Quiroz completed recommending observation admission with MRI with and without contrast along with MRA of the head and neck for further evaluation he reports that he believes that symptoms are likely a slightly atypical Schumacher's palsy however due to left upper extremity paresthesia along with associated headache he would like to proceed and cautiously with further evaluation. Time: 11:19 Consultation #2: Spoke with Dr. Atwood neuro interventionalists physician surgeon regarding patient presentation and pending CTA. Advised patient already seen and evaluated by Dr. Dunn neurology. Patient not a TPA candidate due to onset of symptoms greater than 4 hours ago and NIH scale of 1 making risk of TPA greater benefit. Neuro interventionalists advised to continue to follow-up with neurology on-call. No further orders received from neuro interventionalists. Time: 11:46 Disposition Clinical Impression: Right-sided Schumacher's palsy, Paresthesia of right upper extremity Disposition: ADMITTED IP TO THIS [facility] Condition: Stable Is patient prescribed a controlled substance at d/c from ED?: No Referrals: Becky Cristobal MD [Primary Care Provider] - 1-2 days Time of Disposition: 13:12
[2022-04-18 11:40] LABS: Basophils # (A) 0.1 k/uL (0-0.2); Basophils % (A) 1 %; Eosinophils # (A) 0.2 k/uL (0-0.7); Eosinophils % (A) 3 %; HCT 44.6 % (39.0-53.0); HGB 15.3 gm/dL (13.0-17.5); Lymphocytes # (A) 1.7 k/uL (1.0-4.8); Lymphocytes % (A) 23 %; MCH 28.9 pg (25.0-35.0); MCHC 34.3 g/dL (31.0-37.0); MCV 84.1 fL (80.0-100.0); Mean Platelet Volume 7.8; Monocytes # (A) 0.7 k/uL (0-1.0); Monocytes % (A) 10 %; Neutrophils # (A) 4.5 k/uL (1.3-7.7); Neutrophils % (A) 61 %; Platelet Count 232 k/uL (150-450); RBC 5.31 m/uL (4.30-5.90); RDW 12.7 % (11.5-15.5); WBC 7.4 k/uL (3.8-10.6)
--- NOTE | 2022-04-18 11:52 | CT ---
EXAMINATION TYPE: CT brain wo con DATE OF EXAM: 04/18/2022 COMPARISON: 03/06/2018 HISTORY: 32-year-old male Neuro deficit, acute, right-sided facial droop and right arm numbness. TECHNIQUE: Examination was done in axial plane without intravenous contrast. Coronal and sagittal r econstructions performed. CT DLP: 1221.6 mGycm Automated exposure control for dose reduction was used. FINDINGS: There is no evidence of acute intracranial hemorrhage, acute ischemic changes, mass, mass-effect, or extra-axial fluid collection. There is no effacement of cerebral sulci or basal subarachnoid cister ns. There is no hydrocephalus. There is no midline shift. Donald-white matter distinction is preserv ed. Moderate mucosal thickening throughout the ethmoid air cells and bilateral maxillary sinuses. There m ay be a small air-fluid level in both maxillary sinuses. Orbits and globes are intact. IMPRESSION: No acute intracranial abnormality seen. Moderate chronic ethmoid and maxillary sinus disease. Small air-fluid levels may be present in both m axillary sinuses. Correlate to exclude acute sinusitis.
[2022-04-18 11:58] LABS: ALT 101 U/L (4-49); AST 58 U/L (17-59); African American GFR (CKD) >90 (>60 ml/min/1.73 sqM); Albumin 4.4 g/dL (3.5-5.0); Alkaline Phosphatase 56 U/L (38-126); Anion Gap 7 mmol/L; Blood Urea Nitrogen 12 mg/dL (9-20); Calcium 9.4 mg/dL (8.4-10.2); Carbon Dioxide 27 mmol/L (22-30); Chloride 103 mmol/L (98-107); Glucose 115 mg/dL (74-99); Non-African American GFR(CKD) >90 (>60 ml/min/1.73 sqM); Potassium 4.5 mmol/L (3.5-5.1); Sodium 137 mmol/L (137-145); Total Bilirubin 0.7 mg/dL (0.2-1.3); Total Protein 7.2 g/dL (6.3-8.2)
[2022-04-18 12:00] LABS: Partial Thromboplastin Time 25.6 sec (22.0-30.0); Prothrombin Time 10.3 sec (9.0-12.0)
[2022-04-18] MEDS ORDERED: predniSONE 20 MG TAB PO STA (12:04)
[2022-04-18] MEDS: valACYclovir HCL 1,000 MG TABLET PO SCH ×2 (12:30→22:13)
--- NOTE | 2022-04-18 12:35 | CT ---
EXAMINATION TYPE: CODE STROKE: CTA head neck DATE OF EXAM: 04/18/2022 COMPARISON: Brain same day HISTORY: 32-year-old male with right facial droop and numbness and Rt arm numbness. TECHNIQUE: Contiguous axial scanning of the head and neck performed with IV Contrast, patient injecte d with 65 mL of Isovue 370. Coronal/sagittal MIP reconstructions performed. 3-D reconstructions gener ated on a dedicated independent workstation. CT DLP: 736.5 mGycm Automated exposure control for dose reduction was used. FINDINGS: NECK: Conventional arch vessel branching anatomy. Codominant vertebral arteries, patent throughout the course. The right common and right internal carotid arteries are widely patent by NASCET criteria. The left common and internal carotid arteries are widely patent by NASCET criteria. HEAD: The anterior and posterior circulations are widely patent. No significant narrowing or aneurysmal concepcion nge is identified. Dural venous sinuses are patent. IMPRESSION: 1. NECK: WIDELY PATENT VERTEBRAL AND CAROTID ARTERIES OF THE NECK. 2. HEAD: NO LARGE VESSEL INTRACRANIAL ARTERIAL OCCLUSION, SIGNIFICANT STENOSIS, OR ANEURYSMAL CHANGES SEEN.
[2022-04-18] MEDS ORDERED: NALOXONE 0.4 MG/ML 1 ML VIAL IV PRN (12:43)
--- NOTE | 2022-04-18 13:34 | P.CNNES ---
History of Present Illness Consult date: 04/18/22 Requesting physician: Matilda Montoya Reason for Consult: facial weakness with numbness History of Present Illness: This is a 32-year-old gentleman who presented emergency department on 04/18/2022 for right facial weakness as well as numbness. He stated that his symptoms began around 5 PM on 04/17/2022. He denies any recent infection, recent trauma. Denies any extremity extremity weakness of the uppers or lowers. Denies history of stroke or TIA or any seizures. He does smoke. Denies any illicit drug use or alcohol use. Patient is not on any antiplatelet drugs. Some other workup during his hospital visit consisted of: CBC with differential is unremarkable Initial serum glucose is 127. Otherwise the rest is unremarkable except for also ALT slightly elevated of 101. CT of the brain is reported as no acute intracranial abnormality seen. Moderate chronic ethmoid and maxillary sinus disease. Small air fluid level may present in both maxillary sinuses. Correlate to exclude acute sinusitis. I personally reviewed CT and there is no acute or subacute ischemic stroke, mass effect or hemorrhage. CTA head and neck is reported as negative for any large vessel intracranial occlusion, significant stenosis or aneurysm and that had the carotid of the neck are patent as well as the vertebral arteries A code stroke was activated by ED team. No IV tpa since outside window and the risk outweigh benefit. Review of Systems Review of system: The 12 point system was reviewed and apparent positive and negative per HPI. Past Medical History Past Medical History: Hypertension Additional Past Medical History / Comment(s): Severe anxiety, migraines, chronic back pain, difficulty with focusing attention. History of Any Multi-Drug Resistant Organisms: None Reported Past Surgical History: Orthopedic Surgery Additional Past Surgical History / Comment(s): Left wrist open reduction internal fixation, lipoma removed from right posterior shoulder. Past Anesthesia/Blood Transfusion Reactions: No Reported Reaction Past Psychological History: ADD/ADHD, Anxiety, Depression, Schizophrenia Smoking Status: Current every day smoker Past Alcohol Use History: None Reported Past Drug Use History: None Reported - Past Family History Father Family Medical History: Cancer, CVA/TIA, Myocardial Infarction ([place]) Additional Family Medical History / Comment(s): Father is alive at age 58. Patient states he has a rare cancer and undergoing chemotherapy. Mother Family Medical History: Coronary Artery Disease (CAD), Hypertension, Syncope Additional Family Medical History / Comment(s): Mother is alive at age 54 and also has history of anxiety and depression. Sister(s) History Unknown: Yes Family Medical History: No Reported History Medications and Allergies Home Medications Medication Instructions Recorded Confirmed Type Docusate Sodium [Dok] 100 mg PO BID PRN 02/27/22 03/13/22 History Acetaminophen Tab [Tylenol] 650 mg PO Q4HR PRN tab 03/21/22 Rx DULoxetine HCL [Cymbalta] 60 mg PO BID #60 cap 03/21/22 Rx DULoxetine HCL [Cymbalta] 60 mg PO BID 30 Days cap 03/21/22 Rx Mag Hydrox/Al Hydrox/Simeth 30 ml PO Q4HR PRN ml 03/21/22 Rx [Maalox] Aesxgqih-Ajkuvkcqdy-Eekg Oint 1 applic TOPICAL BID 7 Days #1 each 03/21/22 Rx [Triple Antibiotic Ointment] Paliperidone IM [Invega Sustenna] 156 mg IM QMONTHLY 30 Days #1 ml 03/21/22 Rx Paliperidone [Invega] 9 mg PO HS 30 Days #30 tab 03/21/22 Rx cloNIDine HCL [Catapres] 0.1 mg PO TID 30 Days #90 tab 03/21/22 Rx hydrOXYzine pamoate 50 mg PO TID PRN 30 Days #90 cap 03/21/22 Rx Allergies Allergy/AdvReac Type Severity Reaction Status Date / Time No Known Allergies Allergy Verified 04/18/22 11:02 Physical Examination - Vital Signs Vital Signs: Vital Signs Temp Pulse Resp BP Pulse Ox 04/18/22 11:36 111 H 16 117/78 95 04/18/22 10:59 98 F 119 H 18 128/68 96 Intake and Output 04/17/22 04/18/22 04/18/22 22:59 06:59 14:59 Other: Weight 104.326 kg GENERAL: The patient is lying in bed and is not in acute distress. CHEST: The heart rate is regular rate rhythm. No murmurs to auscultation. LUNG: Clear to auscultation bilaterally no wheezing noted throughout. Not labored breathing. ABDOMEN/GI: Bowel sounds present in all 4 quadrants. No tenderness to palpation throughout. NEUROLOGICAL: Higher mental function: The patient is awake, alert, oriented to self, place and time. Patient is following commands. No aphasia and no neglect. Cranial nerves: The pupils are round, equal and reactive to light and accommodation. Visual sullivan are full to confrontation throughout. Extraocular movement is intact no nystagmus is noted. Facial sensation is decreased to touch over the right upper and lower. Right upper and lower facial weakness (peripheral type). Hearing is normal bilaterally to hand rub. Tongue is midline and moved [id number] without any difficulty. No dysarthria is noted. Shoulder shrug is normal bilaterally. Motor: The strength is 5 over 5 throughout. Normal tone and bulk. Cerebellum: Normal finger to nose bilaterally. Sensation: Sensation is decreased to touch over the right upper but otherwise normal throughout. Reflexes (right/left): 2+ throughout Plantars are downgoing bilaterally. Results - Laboratory Findings CBC and BMP: 04/18/22 11:34 12 11:34 Abnormal Lab Findings: Abnormal Labs 04/18/22 12 11:22 11:34 Glucose 115 H POC Glucose (mg/dL) 127 H ALT 101 H Assessment and Plan Assessment: Acute right facial weakness (peripheral type) with numbness and right upper extremity weakness. Rule out stroke vs atypical Schumacher's Palsy. Tobacco use. Plan: I will pursue with MRI Brain w/ and w/o to rule out any central cause. No need for MRA since he had CTA head already. Patient was started on Predisnone 60mg daily and Valacylovir 1000mg bid. Ordered TSH, Lyme disease, HbA1c. Recommend eye patch and clear drop to avoid corneal ulcers on right eye. Will not start antiplaletes unless MRI reveals stroke. I feels seems atypical Schumacher's Palsy. PT, OT and [employer]ER are consulted. Continue neuro checks On cardiac monitoring. Patient was counseled on tobacco cessation. Will defer the rest of medical management to primary team. For DVT prophylaxis: Started subq heparin 5000U every 8 hours. The plan is discussed with patient and ED team. Thank you for the consultation. Time with Patient: Greater than 30
[2022-04-18] MEDS ORDERED: ALPRAZolam 1 MG TAB PO STA (14:38)
[2022-04-18] MEDS ORDERED: DOCUSATE 100 MG CAP PO PRN (15:09)
[2022-04-18] MEDS ORDERED: hydrOXYzine pamoate 25 MG CAP PO PRN (15:09)
--- NOTE | 2022-04-18 15:14 | P.HPIM ---
History of Present Illness H&P Date: 04/18/22 Chief Complaint: facial droop Patient is a 32-year-old male with a history of schizophrenia, anxiety, bipolar depression, migraines, secondary hypogonadism presenting with right-sided and right upper extremity numbness. He claims that it started while he was having dinner last evening. He began to notice some slurred speech and difficulty closing his mouth on the right side. He also noted difficulty with swallowing and right arm numbness. He denies any prior similar symptoms. Denies any fevers or chills, sick contacts, travel history. He denies any changes in his medications. He denies any chest pain, shortness of breath, palpitations, abdominal pain, nausea, vomiting, diarrhea, or constipation. On initial presentation, he was tachycardic to 110s, respiratory signs are normal. Lab work was Unremarkable. EKG shows sinus tachycardia. CT brain and CTA showed no acute process. Patient seen and examined at bedside. [] Pertinent positives and negatives as discussed in HPI, a complete review of systems was performed and all other systems are negative. Vital signs reviewed General: nontoxic, no distress, appears at stated age Derm: warm, dry Head: atraumatic, normocephalic, symmetric Eyes: EOMI, no lid lag, anicteric sclera, pupils equal round reactive to light ENT: Nose and ears atraumatic Neck: No thyromegaly, supple Mouth: no lip lesion, mucus membranes moist Cardiovascular: S1S2 reg, no murmur, no edema Lungs: clear to auscultation bilateral, no rhonchi, no rales, no wheeze, no accessory muscle use Abdominal: soft, nontender to palpation, no guarding, no appreciable organomegaly Ext: no gross muscle atrophy, muscle strength muscle strength 5 out of 5 in all 4 extremities, no contractures Neuro: Right-sided facial droop Psych: Alert, oriented, appropriate affect Assessment/Plan: Right-sided facial droop Right arm paresthesia Possible stroke versus Schumacher's palsy -Neurology following -Neuro checks -MRI brain pending -TSH, Lyme disease, A1c pending -Started on prednisone and valacyclovir Sinus tachycardia -Continue telemetry Nicotine dependence -Counseled regarding smoking cessation Schizophrenia Anxiety -Continue home medications The patient is admitted with an anticipated less than 2 midnight stay for evaluation of stroke-like symptoms. Surrogate decision-maker: Mother CODE STATUS: Full Code DVT prophylaxis: Subcu heparin Anticipated discharge date: Tomorrow Anticipated discharge place: Home A total of 55 minutes was spent on the care of this complex patient more than 50% of the time was spent in counseling and care coordination. Past Medical History Past Medical History: Hypertension Additional Past Medical History / Comment(s): Severe anxiety, migraines, chronic back pain, difficulty with focusing attention. History of Any Multi-Drug Resistant Organisms: None Reported Past Surgical History: Orthopedic Surgery Additional Past Surgical History / Comment(s): Left wrist open reduction internal fixation, lipoma removed from right posterior shoulder. Past Anesthesia/Blood Transfusion Reactions: No Reported Reaction Past Psychological History: ADD/ADHD, Anxiety, Depression, Schizophrenia Smoking Status: Current every day smoker Past Alcohol Use History: None Reported Past Drug Use History: None Reported - Past Family History Father Family Medical History: Cancer, CVA/TIA, Myocardial Infarction (HI) Additional Family Medical History / Comment(s): Father is alive at age 58. Patient states he has a rare cancer and undergoing chemotherapy. Mother Family Medical History: Coronary Artery Disease (CAD), Hypertension, Syncope Additional Family Medical History / Comment(s): Mother is alive at age 54 and also has history of anxiety and depression. Sister(s) History Unknown: Yes Family Medical History: No Reported History Medications and Allergies Home Medications Medication Instructions Recorded Confirmed Type Docusate Sodium [Dok] 100 mg PO BID PRN 02/27/22 04/18/22 History DULoxetine HCL [Cymbalta] 60 mg PO BID #60 cap 03/21/22 04/18/22 Rx cloNIDine HCL [Catapres] 0.1 mg PO TID 30 Days #90 tab 03/21/22 04/18/22 Rx hydrOXYzine pamoate 50 mg PO TID PRN 30 Days #90 cap 03/21/22 04/18/22 Rx Buprenorphine HCl/Naloxone HCl 0.5 film SL DAILY PRN 04/18/22 04/18/22 History [Suboxone 8 mg-2 mg Sl Film] Buprenorphine HCl/Naloxone HCl 1 film SL BID PRN 04/18/22 04/18/22 History [Suboxone 8 mg-2 mg Sl Film] Nicotine 14Mg/24Hr Patch [Habitrol 1 patch TRANSDERM DAILY 04/18/22 04/18/22 History 14Mg/24Hr Patch] Paliperidone IM [Invega Sustenna] 234 mg IM Q28D 04/18/22 04/18/22 History Paliperidone [Invega] 9 mg PO HS 04/18/22 04/18/22 History Testosterone Cypionate 100 mg IM Q14D 04/18/22 04/18/22 History [Depo-Testosterone] Allergies Allergy/AdvReac Type Severity Reaction Status Date / Time No Known Allergies Allergy Verified 04/18/22 11:02 Physical Exam Vitals: Vital Signs Temp Pulse Resp BP Pulse Ox 04/18/22 12:35 97.8 F 04/18/22 11:36 111 H 16 117/78 95 04/18/22 10:59 98 F 119 H 18 128/68 96 Intake and Output 04/18/22 04/18/22 04/18/22 06:59 14:59 22:59 Other: Weight 104.326 kg Results CBC & Chem 7: 04/18/22 11:34 04/18/22 11:34 Labs: Abnormal Lab Results - Last 24 Hours (Table) 04/18/22 04/18/22 Range/Units 11:22 11:34 Glucose 115 H (74-99) mg/dL POC Glucose (mg/dL) 127 H (70-110) mg/dL ALT 101 H (4-49) U/L
[2022-04-18] MEDS: cloNIDine HCL 0.1 MG TAB PO SCH ×2 (16:04→22:13)
[2022-04-18] MEDS: HEPARIN SODIUM,PORCINE/PF 5,000 UNIT/0.5 ML SYRINGE SQ SCH ×2 (16:04→22:19)
[2022-04-18] MEDS ORDERED: PALIPERIDONE 3 MG TAB.ER.24 PO SCH (21:00)
[2022-04-18] MEDS: DULoxetine HCL 60 MG CAPSULE.DR PO SCH (22:13)
[2022-04-19 07:38] VITALS: RESP 14
[2022-04-19] MEDS ORDERED: predniSONE 20 MG TAB PO SCH (09:00)
[2022-04-19] MEDS ORDERED: NICOTINE 14MG/24HR PATCH TRANSDERM SCH (09:00)
[2022-04-19] MEDS ORDERED: ALPRAZolam 1 MG TAB PO STA (10:26)
[2022-04-19] MEDS: valACYclovir HCL 1,000 MG TABLET PO SCH (10:38)
[2022-04-19] MEDS: HEPARIN SODIUM,PORCINE/PF 5,000 UNIT/0.5 ML SYRINGE SQ SCH ×2 (10:39→15:59)
[2022-04-19] MEDS: DULoxetine HCL 60 MG CAPSULE.DR PO SCH (10:39)
[2022-04-19] MEDS: cloNIDine HCL 0.1 MG TAB PO SCH ×2 (10:42→15:59)
--- NOTE | 2022-04-19 12:39 | MR ---
EXAMINATION TYPE: MR brain wo/w con DATE OF EXAM: 04/19/2022 COMPARISON: MRI brain 07/02/2020. HISTORY: Right sided facial weakness TECHNIQUE: Multiplanar, multisequence images of the brain and brainstem is performed without and with IV contras t, utilizing 10 mL intravenous Gadavist . FINDINGS: Diffusion weighted images demonstrate no evidence of a recent infarct or other diffusion ab normality. There is no extra-axial fluid collection or significant white matter signal abnormality. The ventricular system and cisternal spaces are normal in size and appearance. The brain volume is age appropriate. T2 Star weighted images show no suspicious intraparenchymal blood product. Midline structures demonstrate normal morphology. The craniocervical junction appears within normal limits. Post contrast images demonstrate no abnormal enhancement. The dural venous sinuses appear pa tent. [id number] mucosal thickening involving ethmoid sinuses bilaterally remains present. Mild -to-moderate mucosal thickening involving bilateral maxillary sinuses with mucous retention cyst and/ or polyp formation anteriorly and inferiorly redemonstrated. The globes are intact bilaterally. IMPRESSION: No MRI evidence for recent infarct. No abnormal enhancement noted. Chronic paranasal sinu s disease again seen. No significant change from prior MRI.
--- NOTE | 2022-04-19 12:52 | P.PN ---
Subjective Progress Note Date: 04/19/22 The patient is seen at bedside and feels somewhat better today compared to yesterday. He feels his numbness is improving. Denies any new neurological issues. Objective - Vital Signs Vital signs: Vital Signs Temp 98.4 F 04/19/22 07:00 Pulse 77 04/19/22 07:00 Resp 14 04/19/22 07:00 BP 102/55 04/19/22 07:00 Pulse Ox 96 04/19/22 07:00 FiO2 Intake & Output 04/18/22 04/19/22 04/19/22 18:59 06:59 18:59 Intake Total 118 Balance 118 Weight 104.326 kg Intake: Oral 118 Other: # Voids 3 - Exam GENERAL: The patient is lying in bed and is not in acute distress. NEUROLOGICAL: Higher mental function: The patient is awake, alert, oriented to self, place and time. Patient is following commands. No aphasia and no neglect. Cranial nerves: The pupils are round, equal and reactive to light and accommodation. Visual sullivan are full to confrontation throughout. Extraocular movement is intact no nystagmus is noted. Facial sensation is decreased to touch over the right upper and lower. Right upper and lower facial weakness (peripheral type). Hearing is normal bilaterally to hand rub. Tongue is midline and moved [id number] without any difficulty. No dysarthria is noted. Shoulder shrug is normal bilaterally. Motor: The strength is 5 over 5 throughout. Normal tone and bulk. Cerebellum: Normal finger to nose bilaterally. Sensation: Sensation is normal to touch throughout Reflexes (right/left): 2+ throughout Plantars are downgoing bilaterally. Some other workup during his hospital visit consisted of: Afebrile so far. CBC with differential is unremarkable TSH: 1.090 HbA1c: 5.7 CT of the brain is reported as no acute intracranial abnormality seen. Moderate chronic ethmoid and maxillary sinus disease. Small air fluid level may present in both maxillary sinuses. Correlate to exclude acute sinusitis. I personally reviewed CT and there is no acute or subacute ischemic stroke, mass effect or hemorrhage. CTA head and neck is reported as negative for any large vessel intracranial occlusion, significant stenosis or aneurysm and that had the carotid of the neck are patent as well as the vertebral arteries - Labs CBC & Chem 7: 04/18/22 11:34 04/18/22 11:34 Assessment and Plan Assessment: Acute right facial weakness (peripheral type) with numbness and right upper extremity weakness. Rule out stroke vs atypical Schumacher's Palsy. I feel less likely stroke. Tobacco use. Plan: I will pursue with MRI Brain w/ and w/o to rule out any central cause. No need for MRA since he had CTA head already. Patient was started on Predisnone 60mg daily and Valacylovir 1000mg bid and to be on it for total of 7 days. Pending Lyme disease. Recommend eye patch and clear drop to avoid corneal ulcers on right eye. Will not start antiplaletes unless MRI reveals stroke. I feels seems atypical Schumacher's Palsy. PT, OT and PUBLIC AFFAIRS SPECIALIST are consulted. Continue neuro checks On cardiac monitoring. Patient was counseled on tobacco cessation. Will defer the rest of medical management to primary team. For DVT prophylaxis: Started subq heparin 5000U every 8 hours. If MRI Brain is negative for stroke or mass, patient is clear from neurological perspective. The plan is discussed with patient. Time with Patient: Less than 30
[2022-04-19] MEDS ORDERED: ARTIFICIAL TEARS OINTMENT 3.5 GM TUBE RIGHT EYE PRN (12:53)
[2022-04-19 13:09] VITALS: BP 103/63; PULSE 83; TEMP 98.6
--- NOTE | 2022-04-19 13:58 | P.DS ---
Providers Date of admission: 04/18/22 13:06 Expected date of discharge: 04/19/22 Attending physician: Jaxson Villatoro MD Consults: 04/18/22 12:43 Consult Physician Routine Consulting Provider: Mathew Dunn Consult Reason/Comments: right facial weakness Do you want consulting provider notified?: Already Contacted Primary care physician: [facility] Hospital Course: Discharge Diagnosis: Right-sided facial droop Right arm paresthesia Right Schumacher's palsy Sinus tachycardia Nicotine dependence Chronic sinus disease Hospital Course: Patient is a 32-year-old male with a history of schizophrenia, anxiety, bipolar depression, migraines, secondary hypogonadism presenting with right-sided facial weakness and right upper extremity numbness. On initial presentation, he was tachycardic to 110s, respiratory signs are normal. Lab work was Unremarkable. EKG shows sinus tachycardia. CT brain and CTA showed no acute process. MRI brain showed no acute process. Neurology was consulted. Patient will get a total of 7 days of valacyclovir and prednisone. Right arm numbness resolved overnight. However, right-sided facial weakness persist. He no longer has difficulty swallowing. Patient will have a follow-up outpatient with PCP and possibly neurology Patient seen and examined at bedside. Vital signs reviewed and stable. General: nontoxic, no distress, appears at stated age Derm: warm, dry Head: atraumatic, normocephalic, symmetric Eyes: EOMI, no lid lag, anicteric sclera, pupils equal round reactive to light ENT: Nose and ears atraumatic Neck: No thyromegaly, supple Mouth: no lip lesion, mucus membranes moist Cardiovascular: S1S2 reg, no murmur, no edema Lungs: clear to auscultation bilateral, no rhonchi, no rales, no wheeze, no accessory muscle use Abdominal: soft, nontender to palpation, no guarding, no appreciable organomegaly Ext: no gross muscle atrophy, muscle strength muscle strength 5 out of 5 in all 4 extremities, no contractures Neuro: Right-sided facial droop Psych: Alert, oriented, appropriate affect A total of 33 minutes of time were spent preparing this complex discharge summary. Patient was discharged on 04/19/22 at 13:48. Patient Condition at Discharge: Stable Plan - Discharge Summary New Discharge Prescriptions: New valACYclovir HCL [Valtrex] 1,000 mg PO BID #12 tab predniSONE [Deltasone] 60 mg PO DAILY #18 tab Artificial Tears Ointment [Lubrifresh Pm Ointment] 1 applic RIGHT EYE QID PRN #1 each PRN Reason: Dry Eye(S) Continue Docusate Sodium [Dok] 100 mg PO BID PRN PRN Reason: Constipation cloNIDine HCL [Catapres] 0.1 mg PO TID 30 Days #90 tab Buprenorphine HCl/Naloxone HCl [Suboxone 8 mg-2 mg Sl Film] 0.5 film SL DAILY PRN PRN Reason: CRAVING Buprenorphine HCl/Naloxone HCl [Suboxone 8 mg-2 mg Sl Film] 1 film SL BID PRN PRN Reason: CRAVING Paliperidone [Invega] 9 mg PO HS Nicotine 14Mg/24Hr Patch [Habitrol] 1 patch TRANSDERM DAILY hydrOXYzine pamoate 50 mg PO TID PRN 30 Days #90 cap PRN Reason: Anxiety DULoxetine HCL [Cymbalta] 60 mg PO BID #60 cap Testosterone Cypionate [Depo-Testosterone] 100 mg IM Q14D Paliperidone IM [Invega Sustenna] 234 mg IM Q28D Discharge Medication List Docusate Sodium [Dok] 100 mg PO BID PRN 02/27/22 [History] DULoxetine HCL [Cymbalta] 60 mg PO BID #60 cap 03/21/22 [Rx] cloNIDine HCL [Catapres] 0.1 mg PO TID 30 Days #90 tab 03/21/22 [Rx] hydrOXYzine pamoate 50 mg PO TID PRN 30 Days #90 cap 03/21/22 [Rx] Buprenorphine HCl/Naloxone HCl [Suboxone 8 mg-2 mg Sl Film] 0.5 film SL DAILY PRN 04/18/22 [History] Buprenorphine HCl/Naloxone HCl [Suboxone 8 mg-2 mg Sl Film] 1 film SL BID PRN 04/18/22 [History] Nicotine 14Mg/24Hr Patch [Habitrol] 1 patch TRANSDERM DAILY 04/18/22 [History] Paliperidone IM [Invega Sustenna] 234 mg IM Q28D 04/18/22 [History] Paliperidone [Invega] 9 mg PO HS 04/18/22 [History] Testosterone Cypionate [Depo-Testosterone] 100 mg IM Q14D 04/18/22 [History] Artificial Tears Ointment [Lubrifresh Pm Ointment] 1 applic RIGHT EYE QID PRN #1 each 04/19/22 [Rx] predniSONE [Deltasone] 60 mg PO DAILY #18 tab 04/19/22 [Rx] valACYclovir HCL [Valtrex] 1,000 mg PO BID #12 tab 04/19/22 [Rx] Follow up Appointment(s)/Referral(s): Becky Cristobal MD [Primary Care Provider] - 1-2 days Patient Instructions/Handouts: Schumacher Palsy (DC) Activity/Diet/Wound Care/Special Instructions: Please follow-up with PCP in 1-2 days. Discharge Disposition: HOME SELF-CARE
[2022-04-21 16:13] LABS: Lyme IgG/IgM 0.24 Index
[2022-04-24] MEDS ORDERED: PALIPERIDONE IM 234 MG/1.5 ML SYG IM SCH (09:00)
[2022-04-27] MEDS ORDERED: TESTOSTERONE CYPIONATE 200 MG/ML 1ML VIAL IM SCH (09:00)
== END 2022-04-19 16:12 | disposition home or self-care (01) ==
LOC: EC 10:38 → 6NMEDSUR 13:06
PROVIDERS: ADMIT Family Medicine; ATTEND Family Medicine
DX: G51.0 Bell's palsy (principal); R00.0 Tachycardia, unspecified; F20.9 Schizophrenia, unspecified; F41.9 Anxiety disorder, unspecified; F31.9 Bipolar disorder, unspecified; G43.909 Migraine, unspecified, not intractable, without status migrainosus; E23.0 Hypopituitarism; F90.9 Attention-deficit hyperactivity disorder, unspecified type; J32.8 Other chronic sinusitis; G89.29 Other chronic pain; M54.9 Dorsalgia, unspecified; I10 Essential (primary) hypertension; F17.200 Nicotine dependence, unspecified, uncomplicated; Z20.822 Contact with and (suspected) exposure to COVID-19; Z79.899 Other long term (current) drug therapy
CPT/HCPCS: 96372 ×3; 99285; 36415; 93005; 92610; 80053; 84443; 84484; 85025; 85610; 85730; 86618; 83036; 87636; 70496; 70450; 70498; 70553; G0378 ×2; S4990; J7512 ×2; Q9967; J1644 ×2; A9585

== ENCOUNTER → 2022-04-24 | Outpatient (CLI) | payer OTHER | END | disposition home or self-care (01) | LOC: LABWHC1 14:40 | PROVIDERS: ATTEND Psychiatry & Neurology Psychiatry | DX: Z79.899 Other long term (current) drug therapy (principal) | CPT/HCPCS: 36415 ==

== ENCOUNTER 2022-04-30 23:57 | Emergency (ER) | payer OTHER ==
[2022-05-01 00:30] VITALS: TEMP 98.4
--- NOTE | 2022-05-01 00:39 | ED ---
General Adult HPI - General Chief complaint: Psychiatric Symptoms Stated complaint: Hallucinations Time Seen by Provider: 05/01/22 00:25 Source: patient, RN notes reviewed Mode of arrival: ambulatory Limitations: no limitations - History of Present Illness Initial comments: 32-year-old male presents to the emergency department for evaluation. States he is having visual and auditory hallucinations. States he does occasionally have auditory hallucinations, however reports visual hallucinations are new for him. States he sees shadowy figures. Has been compliant with his medications and sees a psychiatrist as scheduled. Denies any thoughts of causing harm to himself or anyone else. Has not done anything to hurt himself. No recent medication changes. No medical complaints at this time. - Related Data Home Medications Medication Instructions Recorded Confirmed Docusate Sodium [Dok] 100 mg PO BID PRN 02/27/22 04/18/22 Buprenorphine HCl/Naloxone HCl 0.5 film SL DAILY PRN 04/18/22 04/18/22 [Suboxone 8 mg-2 mg Sl Film] Buprenorphine HCl/Naloxone HCl 1 film SL BID PRN 04/18/22 04/18/22 [Suboxone 8 mg-2 mg Sl Film] Nicotine 14Mg/24Hr Patch [Habitrol] 1 patch TRANSDERM DAILY 04/18/22 04/18/22 Paliperidone IM [Invega Sustenna] 234 mg IM Q28D 04/18/22 04/18/22 Paliperidone [Invega] 9 mg PO HS 04/18/22 04/18/22 Testosterone Cypionate 100 mg IM Q14D 04/18/22 04/18/22 [Depo-Testosterone] Previous Rx's Medication Instructions Recorded DULoxetine HCL [Cymbalta] 60 mg PO BID #60 cap 03/21/22 cloNIDine HCL [Catapres] 0.1 mg PO TID 30 Days #90 tab 03/21/22 hydrOXYzine pamoate 50 mg PO TID PRN 30 Days #90 cap 03/21/22 Artificial Tears Ointment 1 applic RIGHT EYE QID PRN #1 each 04/19/22 [Lubrifresh Pm Ointment] predniSONE [Deltasone] 60 mg PO DAILY #18 tab 04/19/22 valACYclovir HCL [Valtrex] 1,000 mg PO BID #12 tab 04/19/22 Allergies Allergy/AdvReac Type Severity Reaction Status Date / Time No Known Allergies Allergy Verified 05/01/22 00:00 Review of Systems ROS Statement: Those systems with pertinent positive or pertinent negative responses have been documented in the HPI. ROS Other: All systems not noted in ROS Statement are negative. Past Medical History Past Medical History: Hypertension Additional Past Medical History / Comment(s): Severe anxiety, migraines, chronic back pain, difficulty with focusing attention. History of Any Multi-Drug Resistant Organisms: None Reported Past Surgical History: Orthopedic Surgery Additional Past Surgical History / Comment(s): Left wrist open reduction internal fixation, lipoma removed from right posterior shoulder. Past Anesthesia/Blood Transfusion Reactions: No Reported Reaction Past Psychological History: ADD/ADHD, Anxiety, Depression, Schizophrenia Smoking Status: Current every day smoker Past Alcohol Use History: None Reported Past Drug Use History: None Reported - Past Family History Father Family Medical History: Cancer, CVA/TIA, Myocardial Infarction (DC) Additional Family Medical History / Comment(s): Father is alive at age 58. Patient states he has a rare cancer and undergoing chemotherapy. Mother Family Medical History: Coronary Artery Disease (CAD), Hypertension, Syncope Additional Family Medical History / Comment(s): Mother is alive at age 54 and also has history of anxiety and depression. Sister(s) History Unknown: Yes Family Medical History: No Reported History General Exam Limitations: no limitations General appearance: alert, in no apparent distress Respiratory exam: Present: normal lung sounds bilaterally. Absent: respiratory distress, wheezes, rales, rhonchi, stridor Cardiovascular Exam: Present: regular rate, normal rhythm, normal heart sounds. Absent: systolic murmur, diastolic murmur, rubs, gallop, clicks GI/Abdominal exam: Present: soft, normal bowel sounds. Absent: distended, tenderness, guarding, rebound, rigid Neurological exam: Present: alert, oriented X3, normal gait Psychiatric exam: Present: flat affect. Absent: homicidal ideation, suicidal ideation Course Vital Signs 04/30/22 05/01/22 23:58 04:29 Temperature 98.4 F Pulse Rate 100 87 Respiratory 20 15 Rate Blood Pressure 131/92 129/66 O2 Sat by Pulse 96 100 Oximetry - Reevaluation(s) Reevaluation #1: 05/01/22 04:15 Patient was evaluated by EPS and was cleared for discharge with safety plan in place. Medical Decision Making - Medical Decision Making 32-year-old male with a past medical history of psychiatric illness including anxiety, depression, schizophrenia, and TERESA, presents to the emergency department for evaluation. Patient reports auditory and visual hallucinations. Upon exam, patient is well-appearing and in no acute distress. He is having no suicidal or homicidal ideations. He is cooperative with plan of care. No recent medication changes. Denies any drug use. Spoke with EPS who evaluated patient. He states he contracted and was cleared for discharge. Return parameters discussed in detail. Patient verbalizes understanding and agrees with this plan. Attending: Hector. - Lab Data Lab Results 05/01/22 Range/Units 03:01 Urine Opiates Screen Not Detected (NotDetected) Ur Oxycodone Screen Not Detected (NotDetected) Urine Methadone Screen Not Detected (NotDetected) Ur Propoxyphene Screen Not Detected (NotDetected) Ur Barbiturates Screen Not Detected (NotDetected) U Tricyclic Antidepress Not Detected (NotDetected) Ur Phencyclidine Scrn Not Detected (NotDetected) Ur Amphetamines Screen Not Detected (NotDetected) U Methamphetamines Scrn Not Detected (NotDetected) U Benzodiazepines Scrn Not Detected (NotDetected) Urine Cocaine Screen Not Detected (NotDetected) U Marijuana (THC) Screen Not Detected (NotDetected) Disposition Clinical Impression: Hallucinations, Chronic mental illness Disposition: HOME SELF-CARE Condition: Stable Instructions (If sedation given, give patient instructions): Psychiatric Hallucinations (ED) Additional Instructions: Continue your medications as prescribed. Keep all scheduled follow-up appointments. You have agreed to a safety plan. If you have any safety concerns for yourself or thoughts of hurting anyone else, return to the emergency department immediately. Is patient prescribed a controlled substance at d/c from ED?: No Referrals: Becky Cristobal MD [Primary Care Provider] - 1-2 days Time of Disposition: 04:18
[2022-05-01 03:51] LABS: Amphetamine Screen,Urine Not Detected (NotDetected); Barbiturate Screen,Urine Not Detected (NotDetected); Benzodiazepines Screen,Urine Not Detected (NotDetected); Cocaine Screen,Urine Not Detected (NotDetected); Methadone Screen, Urine Not Detected (NotDetected); Opiate Screen,Urine Not Detected (NotDetected); Oxycodone Screen, Urine Not Detected (NotDetected); Phencyclidine Screen,Urine Not Detected (NotDetected); Tricyclic Antidepressant,Urine Not Detected (NotDetected); Urn Cannabinoid Scrn Not Detected (NotDetected)
[2022-05-01 04:31] VITALS: BP 129/66; PULSE 87; RESP 15
== END 2022-05-01 04:35 | disposition home or self-care (01) ==
LOC: EC 23:57
DX: F99 Mental disorder, not otherwise specified (principal); R44.3 Hallucinations, unspecified; I10 Essential (primary) hypertension; F17.200 Nicotine dependence, unspecified, uncomplicated
CPT/HCPCS: 80306; 82075; 99285

== ENCOUNTER 2022-05-15 16:01 | Emergency (ER) | payer OTHER ==
--- NOTE | 2022-05-15 16:37 | ED ---
General Adult HPI - General Source: patient, RN notes reviewed Mode of arrival: ambulatory Limitations: no limitations <Misael Agosto - Last Filed: 05/15/22 16:36> - General Source: patient, RN notes reviewed Mode of arrival: ambulatory Limitations: no limitations <Moni Ram - Last Filed: 05/19/22 17:55> - General Stated complaint: Panic attack, hallucinations Time Seen by Provider: 05/15/22 16:37 - History of Present Illness Initial comments: 32-year-old male presents emergency Department with chief complaint of hallucinations, panic attacks. Patient states she's been having daily panic attack states his ongoing issue but states that he is having hallucinations and unable to live like this. Patient is not sure if he is suicidal or not. Patient denies any self-harm. Denies any homicidal ideation denies any recent medication changes. Denies history of alcohol or drug abuse. (Misael Agosto) 32-year-old male who resides in a nursing home presents to the emergency Department with complaints of increased anxiety he attributes to hearing voices. Patient states he's had auditory hallucinations for several months and has been seen by his psychiatrist, but reports no recent medication changes. States he is not suicidal or homicidal, but is hopeless as he is unable to cope with the voices and is unable to do anything for enjoyment. Denies any attempts to cause harm to himself or anyone else. Has has previous inpatient hospitalizations. (Moni Ram) - Related Data Home Medications Medication Instructions Recorded Confirmed Docusate Sodium [Dok] 100 mg PO BID PRN 02/27/22 04/18/22 Buprenorphine HCl/Naloxone HCl 0.5 film SL DAILY PRN 04/18/22 04/18/22 [Suboxone 8 mg-2 mg Sl Film] Buprenorphine HCl/Naloxone HCl 1 film SL BID PRN 04/18/22 04/18/22 [Suboxone 8 mg-2 mg Sl Film] Nicotine 14Mg/24Hr Patch [Habitrol] 1 patch TRANSDERM DAILY 04/18/22 04/18/22 Paliperidone IM [Invega Sustenna] 234 mg IM Q28D 04/18/22 04/18/22 Paliperidone [Invega] 9 mg PO HS 04/18/22 04/18/22 Testosterone Cypionate 100 mg IM Q14D 04/18/22 04/18/22 [Depo-Testosterone] Previous Rx's Medication Instructions Recorded DULoxetine HCL [Cymbalta] 60 mg PO BID #60 cap 03/21/22 cloNIDine HCL [Catapres] 0.1 mg PO TID 30 Days #90 tab 03/21/22 hydrOXYzine pamoate 50 mg PO TID PRN 30 Days #90 cap 03/21/22 Artificial Tears Ointment 1 applic RIGHT EYE QID PRN #1 each 04/19/22 [Lubrifresh Pm Ointment] predniSONE [Deltasone] 60 mg PO DAILY #18 tab 04/19/22 valACYclovir HCL [Valtrex] 1,000 mg PO BID #12 tab 04/19/22 Allergies Allergy/AdvReac Type Severity Reaction Status Date / Time No Known Allergies Allergy Verified 05/15/22 17:11 Review of Systems ROS Other: All systems not noted in ROS Statement are negative. <Misael Agosto - Last Filed: 05/15/22 16:36> ROS Other: All systems not noted in ROS Statement are negative. <Moni Ram - Last Filed: 05/19/22 17:55> ROS Statement: Those systems with pertinent positive or pertinent negative responses have been documented in the HPI. Past Medical History Past Medical History: Hypertension Additional Past Medical History / Comment(s): Severe anxiety, migraines, chronic back pain, difficulty with focusing attention. History of Any Multi-Drug Resistant Organisms: None Reported Past Surgical History: Orthopedic Surgery Additional Past Surgical History / Comment(s): Left wrist open reduction internal fixation, lipoma removed from right posterior shoulder. Past Anesthesia/Blood Transfusion Reactions: No Reported Reaction Past Psychological History: ADD/ADHD, Anxiety, Depression, Schizophrenia Smoking Status: Current every day smoker Past Alcohol Use History: None Reported Past Drug Use History: None Reported - Past Family History Father Family Medical History: Cancer, CVA/TIA, Myocardial Infarction ([place]) Additional Family Medical History / Comment(s): Father is alive at age 58. Patient states he has a rare cancer and undergoing chemotherapy. Mother Family Medical History: Coronary Artery Disease (CAD), Hypertension, Syncope Additional Family Medical History / Comment(s): Mother is alive at age 54 and also has history of anxiety and depression. Sister(s) History Unknown: Yes Family Medical History: No Reported History <Misael Agosto - Last Filed: 05/15/22 16:36> General Exam Limitations: no limitations General appearance: alert, in no apparent distress ENT exam: Present: normal exam, normal oropharynx, mucous membranes moist Respiratory exam: Present: normal lung sounds bilaterally. Absent: respiratory distress, wheezes, rales, rhonchi, stridor Cardiovascular Exam: Present: regular rate, normal rhythm, normal heart sounds. Absent: systolic murmur, diastolic murmur, rubs, gallop, clicks GI/Abdominal exam: Present: soft, normal bowel sounds. Absent: distended, tenderness, guarding, rebound, rigid Neurological exam: Present: alert, oriented X3 Psychiatric exam: Present: flat affect Skin exam: Present: warm, dry, intact, normal color. Absent: rash <Moni Ram - Last Filed: 05/19/22 17:55> Course <Moni Ram - Last Filed: 05/19/22 17:55> Vital Signs 05/15/22 17:09 Temperature 98.1 F Pulse Rate 120 H Respiratory 24 Rate Blood Pressure 124/81 O2 Sat by Pulse 99 Oximetry - Reevaluation(s) Reevaluation #1: 05/15/22 22:39 Patient was evaluated by EPS and is cleared. (Moni Ram) Medical Decision Making <Moni Ram - Last Filed: 05/19/22 17:55> - Medical Decision Making 32-year-old male presents to the emergency department for evaluation of increased anxiety and hearing voices. Upon exam, patient is cooperative, well- appearing, in no acute distress. He is not feeling suicidal or homicidal at this time. Physical exam findings are unremarkable. Urine drug screen and BAT are negative. Patient is evaluated by EPS and cleared for discharge. He is encouraged to follow up with his psychiatrist and discuss his concerns. Return parameters were discussed in detail. Patient verbalizes understanding and agrees with this plan. Attending: Hector. Was pt. sent in by a medical professional or institution? @ -No Did you speak to anyone other than the patient for history? @ -No Did you review nursing and triage notes? @ -Yes, agree. Resting heart rate upon my evaluation was in the 80s. Were old charts reviewed? @ -No Differential Diagnosis? @ -Anxiety, depression, mood disorder, hallucinations, medication side effect, this is not meant to be an exhaustive list EKG interpreted by me (3pts min.)? @ -Not applicable X-rays interpreted by me (1pt min.)? @ -Not applicable CT interpreted by me (1pt min.)? @ -Not applicable U/S interpreted by me (1pt. min.)? @ -Not applicable What testing was considered but not performed? (CT, X-rays, U/S, labs)? Why? @ -None What meds were considered but not given? Why? @ -None Did you discuss the management of the patient with other professionals? @ -I discussed this patient's care with EPS who was very familiar with him and had a good rapport. Did you reconcile home meds? @ -No Was smoking cessation discussed for >3mins.? @ -No Was critical care preformed (if so, how long)? @ -No Were there social determinants of health that impacted care today? How? (Homelessness, low income, unemployed, alcoholism, drug addiction, transportation, low edu. Level, literacy, decrease access to med. care, fdc, rehab)? @ -Low literacy/education level, nursing home resident. Was there de-escalation of care discussed even if they declined? (Discuss DNR or withdrawal of care, Hospice)? @ -No What co-morbidities impacted this encounter? (DM, HTN, Smoking, COPD, CAD, Cancer, CVA, Hep., AIDS, mental health diagnosis, sleep apnea, morbid obesity)? @ -Mood disorder Was patient admitted / discharged? @ -Discharged Undiagnosed new problem with uncertain prognosis? @ -None Drug Therapy requiring intensive monitoring for toxicity (Heparin, Nitro, Insulin, Cardizem)? @ -None Were any procedures done? @ -None Diagnosis/symptom? @ -Anxiety Acute, or Chronic, or Acute on Chronic? @ -Chronic Uncomplicated (without systemic symptoms) or Complicated (systemic symptoms)? @ -Uncomplicated Side effects of treatment? @ -None Exacerbation, Progression, or Severe Exacerbation] @ -Not applicable Poses a threat to life or bodily function? @ -No (Moni Ram) - Lab Data Lab Results 05/15/22 Range/Units 20:26 Urine Opiates Screen Not Detected (NotDetected) Ur Oxycodone Screen Not Detected (NotDetected) Urine Methadone Screen Not Detected (NotDetected) Ur Propoxyphene Screen Not Detected (NotDetected) Ur Barbiturates Screen Not Detected (NotDetected) U Tricyclic Antidepress Not Detected (NotDetected) Ur Phencyclidine Scrn Not Detected (NotDetected) Ur Amphetamines Screen Not Detected (NotDetected) U Methamphetamines Scrn Not Detected (NotDetected) U Benzodiazepines Scrn Not Detected (NotDetected) Urine Cocaine Screen Not Detected (NotDetected) U Marijuana (THC) Screen Not Detected (NotDetected) Disposition <Misael Agosto - Last Filed: 05/15/22 16:36> Is patient prescribed a controlled substance at d/c from ED?: No Time of Disposition: 23:23 <Moni Ram - Last Filed: 05/19/22 17:55> Clinical Impression: Anxiety Disposition: HOME SELF-CARE Condition: Stable Instructions (If sedation given, give patient instructions): Mood Disorders (ED) Additional Instructions: It is that you discuss your symptoms with your psychiatrist. Call in the morning to schedule follow-up appointment. Continue taking your medications as prescribed. If there is any concern for safety, please return to the emergency department or call 911. Referrals: Becky Cristobal MD [Primary Care Provider] - 1-2 days
[2022-05-15 17:11] VITALS: BP 124/81; PULSE 120; RESP 24; TEMP 98.1
[2022-05-15 20:44] LABS: Amphetamine Screen,Urine Not Detected (NotDetected); Barbiturate Screen,Urine Not Detected (NotDetected); Benzodiazepines Screen,Urine Not Detected (NotDetected); Cocaine Screen,Urine Not Detected (NotDetected); Methadone Screen, Urine Not Detected (NotDetected); Opiate Screen,Urine Not Detected (NotDetected); Oxycodone Screen, Urine Not Detected (NotDetected); Phencyclidine Screen,Urine Not Detected (NotDetected); Tricyclic Antidepressant,Urine Not Detected (NotDetected); Urn Cannabinoid Scrn Not Detected (NotDetected)
== END 2022-05-15 23:26 | disposition home or self-care (01) ==
LOC: EC 16:01
DX: F41.9 Anxiety disorder, unspecified (principal); I10 Essential (primary) hypertension; F32.A Depression, unspecified; F17.200 Nicotine dependence, unspecified, uncomplicated
CPT/HCPCS: 80306; 82075; 99285

== ENCOUNTER 2022-05-30 14:33 | Inpatient (IN) | payer BC, MEDICAID, OTHER ==
[2022-05-30] MEDS ORDERED: LORazepam 2 MG/ML INJ IV STA (15:30)
--- NOTE | 2022-05-30 15:36 | ED ---
General Adult HPI - General Source: patient, RN notes reviewed Mode of arrival: ambulatory Limitations: no limitations <Elian Hill - Last Filed: 05/30/22 15:34> <Jc Elizalde - Last Filed: 05/31/22 01:17> - General Chief complaint: Psychiatric Symptoms Stated complaint: suicidal ideation Time Seen by Provider: 05/30/22 15:05 - History of Present Illness Initial comments: Patient is a pleasant 32-year-old male presenting to the emergency department with concerns for hallucinations and depression. Onset of symptoms was several days ago. Patient has been taking his medication as prescribed. Patient hears voices that are telling him to harm himself. Patient does feel suicidal. No visual hallucinations. No alcohol or street drugs. No homicidal thoughts. (Elian Hill) - Related Data Home Medications Medication Instructions Recorded Confirmed Docusate Sodium [Dok] 100 mg PO BID PRN 02/27/22 05/30/22 Nicotine 14Mg/24Hr Patch [Habitrol] 1 patch TRANSDERM DAILY 04/18/22 05/30/22 Paliperidone IM [Invega Sustenna] 234 mg IM Q28D 04/18/22 05/30/22 Paliperidone [Invega] 9 mg PO HS 04/18/22 05/30/22 Testosterone Cypionate 100 mg IM Q14D 04/18/22 05/30/22 [Depo-Testosterone] cloNIDine HCL [Catapres] 0.1 mg PO QID 05/30/22 05/30/22 hydrOXYzine pamoate [Vistaril] 100 mg PO HS 05/30/22 05/30/22 Previous Rx's Medication Instructions Recorded DULoxetine HCL [Cymbalta] 60 mg PO BID #60 cap 03/21/22 hydrOXYzine pamoate 50 mg PO TID PRN 30 Days #90 cap 03/21/22 Allergies Allergy/AdvReac Type Severity Reaction Status Date / Time No Known Allergies Allergy Verified 05/30/22 18:51 Review of Systems ROS Other: All systems not noted in ROS Statement are negative. Constitutional: Denies: fever Eyes: Denies: eye pain ENT: Denies: ear pain Respiratory: Denies: cough Cardiovascular: Reports: chest pain (Patient believes his anxiety is causing some chest pain) Endocrine: Denies: fatigue Gastrointestinal: Denies: abdominal pain Genitourinary: Denies: dysuria <Elian Hill - Last Filed: 05/30/22 15:34> ROS Other: All systems not noted in ROS Statement are negative. <Jc Elizalde - Last Filed: 05/31/22 01:17> ROS Statement: Those systems with pertinent positive or pertinent negative responses have been documented in the HPI. Past Medical History Past Medical History: Hypertension Additional Past Medical History / Comment(s): Severe anxiety, migraines, chronic back pain, difficulty with focusing attention. History of Any Multi-Drug Resistant Organisms: None Reported Past Surgical History: Orthopedic Surgery Additional Past Surgical History / Comment(s): Left wrist open reduction i nternal fixation, lipoma removed from right posterior shoulder. Past Anesthesia/Blood Transfusion Reactions: No Reported Reaction Past Psychological History: ADD/ADHD, Anxiety, Depression, Schizophrenia Smoking Status: Current every day smoker Past Alcohol Use History: None Reported Past Drug Use History: None Reported - Past Family History Father Family Medical History: Cancer, CVA/TIA, Myocardial Infarction ([place]) Additional Family Medical History / Comment(s): Father is alive at age 58. Patient states he has a rare cancer and undergoing chemotherapy. Mother Family Medical History: Coronary Artery Disease (CAD), Hypertension, Syncope Additional Family Medical History / Comment(s): Mother is alive at age 54 and also has history of anxiety and depression. Sister(s) History Unknown: Yes Family Medical History: No Reported History <Elian Hill - Last Filed: 05/30/22 15:34> General Exam Limitations: no limitations General appearance: alert, in no apparent distress Head exam: Present: normocephalic Eye exam: Present: normal appearance Neck exam: Present: normal inspection Respiratory exam: Present: normal lung sounds bilaterally, chest wall tenderness Cardiovascular Exam: Present: tachycardia Expanded Peripheral pulses: 2+: Radial (R), Radial (L), Posterior Tibialis (R), Posterior Tibialis (L) GI/Abdominal exam: Present: soft. Absent: tenderness Extremities exam: Present: normal inspection. Absent: pedal edema, calf tenderness Neurological exam: Present: alert Psychiatric exam: Present: normal affect, normal mood Skin exam: Present: normal color <Elian Hill - Last Filed: 05/30/22 15:34> Course Vital Signs 05/30/22 05/30/22 15:01 20:24 Temperature 98.2 F Pulse Rate 129 H 98 Respiratory 16 16 Rate Blood Pressure 133/82 109/71 O2 Sat by Pulse 97 94 L Oximetry EKG Findings - EKG Results: EKG: interpreted by RODOD, sinus rhythm, normal axis, normal QRS, normal ST/T EKG shows: tachycardia <Elian Hill - Last Filed: 05/30/22 15:34> Medical Decision Making - Lab Data Result diagrams: 05/30/22 15:52 05/30/22 15:52 <Jc Elizalde - Last Filed: 05/31/22 01:17> - Medical Decision Making Was pt. sent in by a medical professional or institution (, PA, [employer], urgent care, hospital, or [facility]...) When possible be specific @ -No Did you speak to anyone other than the patient for history (EMS, parent, family, police, friend...)? What history was obtained from this source @ -No Did you review nursing and triage notes (agree or disagree)? Why? @ -I reviewed and agree with nursing and triage notes Were old charts reviewed (outside hosp., previous admission, EMS record, old EKG, old radiological studies, urgent care reports/EKG's, [facility] records)? Report findings @ -No old charts were reviewed Differential Diagnosis (chest pain, altered mental status, abdominal pain women, abdominal pain men, vaginal bleeding, weakness, fever, dyspnea, syncope, heada [place], dizziness, GI bleed, back pain, seizure, CVA, palpatations, mental health)? @ -Acute psychosis, suicidal ideations. This list is not all encompassing. EKG interpreted by me (3pts min.). @ -As interpreted by Dr. Hill. X-rays interpreted by me (1pt min.). @ -None done CT interpreted by me (1pt min.). @ -Chest x-ray shows no acute cardio pulmonary process, infiltrate. U/S interpreted by me (1pt. min.). @ -None done What testing was considered but not performed or refused? (CT, X-rays, U/S, labs)? Why? @ -None What meds were considered but not given or refused? Why? @ -None Did you discuss the management of the patient with other professionals (professionals i.e. , PA, [employer], lab, RT, psych nurse, social services specialist, search specialist, teacher, trust officer, rehabilitation caseworker)? Give summary @ -Yes. EPS reevaluated the patient and deemed that he meets criteria for admission to the unit. Was smoking cessation discussed for >3mins.? @ -No Was critical care preformed (if so, how long)? @ -No Were there social determinants of health that impacted care today? How? (Homelessness, low income, unemployed, alcoholism, drug addiction, transportation, low edu. Level, literacy, decrease access to med. care, correction, rehab)? @ -Psychiatric illness Was there de-escalation of care discussed even if they declined (Discuss DNR or withdrawal of care, Hospice)? DNR status @ -No What co-morbidities impacted this encounter? (DM, HTN, Smoking, COPD, CAD, Cance r, CVA, ARF, Chemo, Hep., AIDS, mental health diagnosis, sleep apnea, morbid obesity)? @ -Psychiatric illness Was patient admitted / discharged? Hospital course, mention meds given and route, prescriptions, significant lab abnormalities, going to OR and other pe rtinent info. @ -Admitted to inpatient psychiatry. Laboratory studies are unremarkable. Covid swab is negative. Undiagnosed new problem with uncertain prognosis? @ -No Drug Therapy requiring intensive monitoring for toxicity (Heparin, Nitro, Insulin, Cardizem)? @ -No Were any procedures done? @ -No Diagnosis/symptom? @ -Counter for psychiatric evaluation. Acute, or Chronic, or Acute on Chronic? @ -Acute Uncomplicated (without systemic symptoms) or Complicated (systemic symptoms)? @ -Uncomplicated Side effects of treatment? @ -No Exacerbation, Progression, or Severe Exacerbation? @ -No Poses a threat to life or bodily function? How? (Chest pain, [place], [place], pneumonia, PE, COPD, DKA, ARF, appy, cholecystitis, CVA, Diverticulitis, Homicidal, Suicidal, threat to staff... and all critical care pts) @ -No Diagnosis/symptom? @ -Suicidal ideations Acute, or Chronic, or Acute on Chronic? @ -Acute Uncomplicated (without systemic symptoms) or Complicated (systemic symptoms)? @ -Uncomplicated Side effects of treatment? @ -none Exacerbation, Progression, or Severe Exacerbation] @ -no Poses a threat to life or bodily function? @ -Yes, poses a threat to self due to suicidal ideations. Diagnosis/symptom? @ -Acute psychosis Acute, or Chronic, or Acute on Chronic? @ -Acute Uncomplicated (without systemic symptoms) or Complicated (systemic symptoms)? @ -Income located Side effects of treatment? @ -none Exacerbation, Progression, or Severe Exacerbation] @ -no Poses a threat to life or bodily function? @ -no (Jc Elizalde) - Lab Data Lab Results 05/30/22 05/30/22 05/30/22 Range/Units 15:52 15:52 15:52 WBC 12.9 H (3.8-10.6) k/uL RBC 5.68 (4.30-5.90) m/uL Hgb 15.9 (13.0-17.5) gm/dL Hct 47.2 (39.0-53.0) % MCV 83.1 (80.0-100.0) fL MCH 28.0 (25.0-35.0) pg MCHC 33.6 (31.0-37.0) g/dL RDW 14.0 (11.5-15.5) % Plt Count 287 (150-450) k/uL MPV 7.4 Neutrophils % 70 % Lymphocytes % 20 % Monocytes % 6 % Eosinophils % 2 % Basophils % 1 % Neutrophils # 9.0 H (1.3-7.7) k/uL Lymphocytes # 2.5 (1.0-4.8) k/uL Monocytes # 0.8 (0-1.0) k/uL Eosinophils # 0.2 (0-0.7) k/uL Basophils # 0.1 (0-0.2) k/uL PT 10.2 (9.0-12.0) sec INR 1.0 (<1.2) APTT 25.8 (22.0-30.0) sec Sodium (137-145) mmol/L Potassium (3.5-5.1) mmol/L Chloride (98-107) mmol/L Carbon Dioxide (22-30) mmol/L Anion Gap mmol/L BUN (9-20) mg/dL Creatinine (0.66-1.25) mg/dL Est GFR (CKD-EPI)AfAm (>60 ml/min/1.73 sqM) Est GFR (CKD-EPI)NonAf (>60 ml/min/1.73 sqM) Glucose (74-99) mg/dL Calcium (8.4-10.2) mg/dL Magnesium (1.6-2.3) mg/dL Total Bilirubin (0.2-1.3) mg/dL AST (17-59) U/L ALT (4-49) U/L Alkaline Phosphatase (38-126) U/L Troponin I (0.000-0.034) ng/mL Total Protein (6.3-8.2) g/dL Albumin (3.5-5.0) g/dL TSH (0.465-4.680) mIU/L Free T4 (0.78-2.19) ng/dL Free T3 pg/mL (2.8-5.3) pg/ml Urine Opiates Screen Not Detected (NotDetected) Ur Oxycodone Screen Not Detected (NotDetected) Urine Methadone Screen Not Detected (NotDetected) Ur Propoxyphene Screen Not Detected (NotDetected) Ur Barbiturates Screen Not Detected (NotDetected) U Tricyclic Antidepress Not Detected (NotDetected) Ur Phencyclidine Scrn Not Detected (NotDetected) Ur Amphetamines Screen Not Detected (NotDetected) U Methamphetamines Scrn Not Detected (NotDetected) U Benzodiazepines Scrn Not Detected (NotDetected) Urine Cocaine Screen Not Detected (NotDetected) U Marijuana (THC) Screen Not Detected (NotDetected) Coronavirus (PCR) (Not Detectd) 05/30/22 05/30/22 05/31/22 Range/Units 15:52 15:52 00:24 WBC (3.8-10.6) k/uL RBC (4.30-5.90) m/uL Hgb (13.0-17.5) gm/dL Hct (39.0-53.0) % MCV (80.0-100.0) fL MCH (25.0-35.0) pg MCHC (31.0-37.0) g/dL RDW (11.5-15.5) % Plt Count (150-450) k/uL MPV Neutrophils % % Lymphocytes % % Monocytes % % Eosinophils % % Basophils % % Neutrophils # (1.3-7.7) k/uL Lymphocytes # (1.0-4.8) k/uL Monocytes # (0-1.0) k/uL Eosinophils # (0-0.7) k/uL Basophils # (0-0.2) k/uL PT (9.0-12.0) sec INR (<1.2) APTT (22.0-30.0) sec Sodium 140 (137-145) mmol/L Potassium 4.2 (3.5-5.1) mmol/L Chloride 104 (98-107) mmol/L Carbon Dioxide 27 (22-30) mmol/L Anion Gap 9 mmol/L BUN 13 (9-20) mg/dL Creatinine 0.95 (0.66-1.25) mg/dL Est GFR (CKD-EPI)AfAm >90 (>60 ml/min/1.73 sqM) Est GFR (CKD-EPI)NonAf >90 (>60 ml/min/1.73 sqM) Glucose 93 (74-99) mg/dL Calcium 9.8 (8.4-10.2) mg/dL Magnesium 2.1 (1.6-2.3) mg/dL Total Bilirubin 0.4 (0.2-1.3) mg/dL AST 23 (17-59) U/L ALT 28 (4-49) U/L Alkaline Phosphatase 64 (38-126) U/L Troponin I <0.012 (0.000-0.034) ng/mL Total Protein 7.4 (6.3-8.2) g/dL Albumin 4.6 (3.5-5.0) g/dL TSH 0.457 L (0.465-4.680) mIU/L Free T4 0.86 (0.78-2.19) ng/dL Free T3 pg/mL 4.6 (2.8-5.3) pg/ml Urine Opiates Screen (NotDetected) Ur Oxycodone Screen (NotDetected) Urine Methadone Screen (NotDetected) Ur Propoxyphene Screen (NotDetected) Ur Barbiturates Screen (NotDetected) U Tricyclic Antidepress (NotDetected) Ur Phencyclidine Scrn (NotDetected) Ur Amphetamines Screen (NotDetected) U Methamphetamines Scrn (NotDetected) U Benzodiazepines Scrn (NotDetected) Urine Cocaine Screen (NotDetected) U Marijuana (THC) Screen (NotDetected) Coronavirus (PCR) Not Detected (Not Detectd) Disposition <Elian Hill - Last Filed: 05/30/22 15:34> <Jc Elizalde - Last Filed: 05/31/22 01:17> Clinical Impression: Encounter for psychiatric assessment, Acute psychosis, Suicidal ideations Disposition: ADMITTED IP TO THIS [facility] Condition: Stable Referrals: Becky Cristobal MD [Primary Care Provider] - 1-2 days
[2022-05-30 16:15] LABS: ALT 28 U/L (4-49); AST 23 U/L (17-59); African American GFR (CKD) >90 (>60 ml/min/1.73 sqM); Albumin 4.6 g/dL (3.5-5.0); Alkaline Phosphatase 64 U/L (38-126); Anion Gap 9 mmol/L; Blood Urea Nitrogen 13 mg/dL (9-20); Calcium 9.8 mg/dL (8.4-10.2); Carbon Dioxide 27 mmol/L (22-30); Chloride 104 mmol/L (98-107); Glucose 93 mg/dL (74-99); Magnesium 2.1 mg/dL (1.6-2.3); Non-African American GFR(CKD) >90 (>60 ml/min/1.73 sqM); Potassium 4.2 mmol/L (3.5-5.1); Sodium 140 mmol/L (137-145); Total Bilirubin 0.4 mg/dL (0.2-1.3); Total Protein 7.4 g/dL (6.3-8.2)
[2022-05-30 16:17] LABS: Partial Thromboplastin Time 25.8 sec (22.0-30.0); Prothrombin Time 10.2 sec (9.0-12.0)
[2022-05-30 16:19] LABS: Basophils # (A) 0.1 k/uL (0-0.2); Basophils % (A) 1 %; Eosinophils # (A) 0.2 k/uL (0-0.7); Eosinophils % (A) 2 %; HCT 47.2 % (39.0-53.0); HGB 15.9 gm/dL (13.0-17.5); Lymphocytes # (A) 2.5 k/uL (1.0-4.8); Lymphocytes % (A) 20 %; MCHC 33.6 g/dL (31.0-37.0); MCV 83.1 fL (80.0-100.0); Mean Platelet Volume 7.4; Monocytes # (A) 0.8 k/uL (0-1.0); Monocytes % (A) 6 %; Neutrophils % (A) 70 %; Platelet Count 287 k/uL (150-450); RBC 5.68 m/uL (4.30-5.90); WBC 12.9 k/uL (3.8-10.6)
--- NOTE | 2022-05-30 16:21 | XR ---
EXAMINATION TYPE: XR chest 2V DATE OF EXAM: 05/30/2022 4:13 PM COMPARISON: Chest radiographs from 02/27/2022 TECHNIQUE: XR chest 2V Frontal and lateral views of the chest. CLINICAL INDICATION:Male, 32 years old with history of dysrhythmia; FINDINGS: Lungs/Pleura: There is no evidence of pleural effusion, focal consolidation, or pneumothorax. Pulmonary vascularity: Unremarkable. Heart/mediastinum: Cardiomediastinal silhouette is unremarkable. Musculoskeletal: No acute osseous pathology. IMPRESSION: No acute cardiopulmonary disease/process.
[2022-05-30 16:33] LABS: T4, Free (Free Thyroxine) 0.86 ng/dL (0.78-2.19)
[2022-05-30 16:35] LABS: Amphetamine Screen,Urine Not Detected (NotDetected); Barbiturate Screen,Urine Not Detected (NotDetected); Benzodiazepines Screen,Urine Not Detected (NotDetected); Cocaine Screen,Urine Not Detected (NotDetected); Methadone Screen, Urine Not Detected (NotDetected); Opiate Screen,Urine Not Detected (NotDetected); Oxycodone Screen, Urine Not Detected (NotDetected); Phencyclidine Screen,Urine Not Detected (NotDetected); Tricyclic Antidepressant,Urine Not Detected (NotDetected); Urn Cannabinoid Scrn Not Detected (NotDetected)
[2022-05-31] MEDS ORDERED: ACETAMINOPHEN TAB 325 MG TAB PO PRN (01:37)
[2022-05-31] MEDS ORDERED: HALOPERIDOL LACTATE 5 MG/ML 1 ML VIAL IM PRN (01:37)
[2022-05-31] MEDS ORDERED: LORazepam 1 MG TAB PO PRN (01:37)
[2022-05-31] MEDS ORDERED: MAG HYDROX/AL HYDROX/SIMETH 30 ML CUP PO PRN (01:37)
[2022-05-31] MEDS ORDERED: MAGNESIUM HYDROXIDE 2,400 MG/10 ML CUP PO PRN (01:37)
[2022-05-31] MEDS ORDERED: LORazepam 2 MG/ML INJ IM PRN ×2 (01:45→12:33)
[2022-05-31] MEDS ORDERED: haloperidoL 5 MG TAB PO PRN (01:46)
[2022-05-31 02:48] LABS: Appearance,Urine Clear (Clear); Bilirubin,Urine Negative (Negative); Blood,Urine Negative (Negative); Color,Urine Colorless; Glucose,Urine (UA) Negative (Negative); Ketones,Urine Negative (Negative); Leukocyte Esterase,Urine Negative (Negative); Nitrite,Urine Negative (Negative); Protein,Urine Negative (Negative); Specific Gravity,Urine 1.007 (1.001-1.035); Urobilinogen,Urine <2.0 mg/dL (<2.0)
[2022-05-31] MEDS: NICOTINE 14MG/24HR PATCH TRANSDERM SCH (08:14)
[2022-05-31] MEDS: DULoxetine HCL 60 MG CAPSULE.DR PO SCH ×2 (08:14→20:43)
[2022-05-31] MEDS ORDERED: DOCUSATE 100 MG CAP PO PRN (09:00)
[2022-05-31] MEDS ORDERED: hydrOXYzine pamoate 25 MG CAP PO PRN (09:00)
[2022-05-31] MEDS ORDERED: cloNIDine HCL 0.1 MG TAB PO SCH (09:00)
--- NOTE | 2022-05-31 12:39 | P.HP ---
Psychiatric H&P - . H&P Date: 05/31/22 History & Physical: Allergies Allergy/AdvReac Type Severity Reaction Status Date / Time No Known Allergies Allergy Verified 05/31/22 01:48 Vital Signs Temp 97.6 F 05/31/22 02:09 Pulse 124 H 05/31/22 08:16 Resp 20 05/31/22 08:16 BP 131/86 05/31/22 08:16 Pulse Ox 95 05/31/22 02:09 FiO2 Intake & Output 05/30/22 05/31/22 05/31/22 18:59 06:59 18:59 Weight 104.326 kg 104.553 kg Laboratory Last Values WBC 12.9 k/uL (3.8-10.6) H 05/30/22 15:52 RBC 5.68 m/uL (4.30-5.90) 05/30/22 15:52 Hgb 15.9 gm/dL (13.0-17.5) 05/30/22 15:52 Hct 47.2 % (39.0-53.0) 05/30/22 15:52 MCV 83.1 fL (80.0-100.0) 05/30/22 15:52 MCH 28.0 pg (25.0-35.0) 05/30/22 15:52 MCHC 33.6 g/dL (31.0-37.0) 05/30/22 15:52 RDW 14.0 % (11.5-15.5) 05/30/22 15:52 Plt Count 287 k/uL (150-450) 05/30/22 15:52 MPV 7.4 05/30/22 15:52 Neutrophils % 70 % 05/30/22 15:52 Lymphocytes % 20 % 05/30/22 15:52 Monocytes % 6 % 05/30/22 15:52 Eosinophils % 2 % 05/30/22 15:52 Basophils % 1 % 05/30/22 15:52 Neutrophils # 9.0 k/uL (1.3-7.7) H 05/30/22 15:52 Lymphocytes # 2.5 k/uL (1.0-4.8) 05/30/22 15:52 Monocytes # 0.8 k/uL (0-1.0) 05/30/22 15:52 Eosinophils # 0.2 k/uL (0-0.7) 05/30/22 15:52 Basophils # 0.1 k/uL (0-0.2) 05/30/22 15:52 PT 10.2 sec (9.0-12.0) 05/30/22 15:52 INR 1.0 (<1.2) 05/30/22 15:52 APTT 25.8 sec (22.0-30.0) 05/30/22 15:52 Sodium 140 mmol/L (137-145) 05/30/22 15:52 Potassium 4.2 mmol/L (3.5-5.1) 05/30/22 15:52 Chloride 104 mmol/L (98-107) 05/30/22 15:52 Carbon Dioxide 27 mmol/L (22-30) 05/30/22 15:52 Anion Gap 9 mmol/L 05/30/22 15:52 BUN 13 mg/dL (9-20) 05/30/22 15:52 Creatinine 0.95 mg/dL (0.66-1.25) 05/30/22 15:52 Est GFR (CKD-EPI)AfAm >90 (>60 ml/min/1.73 sqM) 05/30/22 15:52 Est GFR (CKD-EPI)NonAf >90 (>60 ml/min/1.73 sqM) 05/30/22 15:52 Glucose 93 mg/dL (74-99) 05/30/22 15:52 Calcium 9.8 mg/dL (8.4-10.2) 05/30/22 15:52 Magnesium 2.1 mg/dL (1.6-2.3) 05/30/22 15:52 Total Bilirubin 0.4 mg/dL (0.2-1.3) 05/30/22 15:52 AST 23 U/L (17-59) 05/30/22 15:52 ALT 28 U/L (4-49) 05/30/22 15:52 Alkaline Phosphatase 64 U/L (38-126) 05/30/22 15:52 Troponin I <0.012 ng/mL (0.000-0.034) 05/30/22 15:52 Total Protein 7.4 g/dL (6.3-8.2) 05/30/22 15:52 Albumin 4.6 g/dL (3.5-5.0) 05/30/22 15:52 TSH 0.457 mIU/L (0.465-4.680) L 05/30/22 15:52 Free T4 0.86 ng/dL (0.78-2.19) 05/30/22 15:52 Free T3 pg/mL 4.6 pg/ml (2.8-5.3) 05/30/22 15:52 Urine Color Colorless 05/30/22 15:52 Urine Appearance Clear (Clear) 05/30/22 15:52 Urine pH 6.0 (5.0-8.0) 05/30/22 15:52 Ur Specific [place] 1.007 (1.001-1.035) 05/30/22 15:52 Urine Protein Negative (Negative) 05/30/22 15:52 Urine Glucose (UA) Negative (Negative) 05/30/22 15:52 Urine Ketones Negative (Negative) 05/30/22 15:52 Urine Blood Negative (Negative) 05/30/22 15:52 Urine Nitrite Negative (Negative) 05/30/22 15:52 Urine Bilirubin Negative (Negative) 05/30/22 15:52 Urine Urobilinogen <2.0 mg/dL (<2.0) 05/30/22 15:52 Ur Leukocyte Esterase Negative (Negative) 05/30/22 15:52 Urine Opiates Screen Not Detected (NotDetected) 05/30/22 15:52 Ur Oxycodone Screen Not Detected (NotDetected) 05/30/22 15:52 Urine Methadone Screen Not Detected (NotDetected) 05/30/22 15:52 Ur Propoxyphene Screen Not Detected (NotDetected) 05/30/22 15:52 Ur Barbiturates Screen Not Detected (NotDetected) 05/30/22 15:52 U Tricyclic Antidepress Not Detected (NotDetected) 05/30/22 15:52 Ur Phencyclidine Scrn Not Detected (NotDetected) 05/30/22 15:52 Ur Amphetamines Screen Not Detected (NotDetected) 05/30/22 15:52 U Methamphetamines Scrn Not Detected (NotDetected) 05/30/22 15:52 U Benzodiazepines Scrn Not Detected (NotDetected) 05/30/22 15:52 Urine Cocaine Screen Not Detected (NotDetected) 05/30/22 15:52 U Marijuana (THC) Screen Not Detected (NotDetected) 05/30/22 15:52 Coronavirus (PCR) Not Detected (Not Detectd) 05/31/22 00:24 05/31/22 12:39 IDENTIFYING DATA: Patient is a , on Social Security disability, 32-year-old male with a significant history of benzodiazepine dependence and schizophrenia presented to our hospital for worsening anxiety. HPI: Patient presented to the hospital on 05/30/2022, but into the hospital on recommendation from [facility] for worsening anxiety and suicidal ideation. EKG was performed in the emergency department and the patient was found to be in sinus tachycardia. Auditory hallucinations are commanding him to kill himself. The patient was subsequently admitted onto the psychiatric unit voluntarily. Upon admission onto the psychiatric unit, the patient reports that he has been feeling extremely anxious. He reports that this anxiety has been causing him to feel suicidal. He reports a constant state of worry. Of note, the patient does have a significant history of benzodiazepine dependence. As per chart review, the patient felt that he was extremely overwhelmed over the holidays and took a Klonopin. He was on a regimen of Suboxone with [facility] however felt that the medication did not address his complaints of anxiety. On top of his complaints of anxiety, the patient reports that he has been experiencing worsening auditory hallucinations. He reports that he has been experiencing voices telling him that he is worthless and that he should kill himself. He otherwise reports that his sleep is poor. He reports no issues regarding his appetite. He is currently not endorsing any homicidal ideation, intention, and/or plan. He does report increased depression, hopelessness, helplessness, anhedonia. He is not reporting any manic or hypomanic symptoms. PAST PSYCHIATRIC HISTORY: Patient states that he has a history of schizophrenia and benzodiazepine dependence . History of numerous medications including Abilify, Vistaril, Zoloft, Benadryl, Xanax, Cymbalta, Prolixin, Klonopin, and trazodone. Was last hospitalized in our psychiatric unit in March 2022. He is currently open with [facility]. He reports multiple attempts at suicide in the past. PMH: Past Medical History: Hypertension Additional Past Medical History / Comment(s): Severe anxiety, migraines, chronic back pain, difficulty with focusing attention. History of Any Multi-Drug Resistant Organisms: None Reported Past Surgical History: Orthopedic Surgery Additional Past Surgical History / Comment(s): Left wrist open reduction internal fixation, lipoma removed from right posterior shoulder. Past Anesthesia/Blood Transfusion Reactions: No Reported Reaction Past Psychological History: ADD/ADHD, Anxiety, Depression, Schizophrenia Smoking Status: Current every day smoker Past Alcohol Use History: None Reported Past Drug Use History: None Reported ALLERGIES: NO KNOWN DRUG ALLERGIES CHEMICAL DEPENDENCY HISTORY: The patient has reported history of polysubstance abuse however denies any recent use. Drug screen is currently negative. He does have a history of Vicodin addiction as well as benzodiazepine dependence. He also has a history of alcohol abuse which resulted in a DUI in 2016. He is currently in every day tobacco user. FAMILY PSYCHIATRIC/SUBSTANCE USE HISTORY: The patient reports that his mother has anxiety, depression, and ADHD. He reports his sister and father have anxiety and depression. SOCIAL HISTORY: Patient was born and raised in [place], [place]. He attended some college. He is currently unemployed and receives Social Security disability. He has a history of numerous incarcerations. He has been previously charged with an OWI and larceny in the past. He is currently after being from [id number]. He is currently staying at [facility]. MENTAL STATUS EXAM: General Appearance: Patient appears to be stated age is alert, directable, and attempts to cooperate. Patient appears to have fair hygiene and grooming. Behavior: Patient is seated without any agitated behavior. Eye contact is appropriate. Speech: Patient's speech is fluent and nonpressured. Mood/Affect: Patient reports their mood is "just nervous," affect is incongruent and appears to be euthymic. Suicidality/Homicidality: Patient denies having any homicidal ideation intent or plan. Endorses Suicidal ideation Perceptions: Patient denies any visual hallucinations and denies any auditory hallucinations Though content/process: There is no evidence of any delusional thought content and thought process is linear and goal-directed. Memory and concentration: AOX3, grossly intact for the purposes of this session. Can spell "WORLD" backwards Judgment and insight: poor STRENGTHS/WEAKNESSES: Strength is that the patient is resilient and has housing. Weakness is that the patient has a long history of substance abuse. INTELLECT: average IMPRESSIONS: Schizoaffective disorder Anxiety disorder, unspecified Nicotine dependence Benzodiazepine dependence PLAN: -Patient is admitted under voluntary status to [facility] for stabilization of psychiatric symptoms and safety. Patient signed adult voluntary form and medication consent and is placed in patient's chart. -Medications : Will start patient on Doxepin 10 mg by mouth at bedtime for depression/anxiety/insomnia Continue Cymbalta 60 mg by mouth twice a day for depression/anxiety Decrease Catapres to 0.1 mg by mouth twice a day due to tachycardia Continue Invega 9 mg by mouth at bedtime for schizoaffective disorder The patient is scheduled for his next dose of Invega Sustenna 234 mg IM on 06/20/2022 Continue Vistaril 3 times a day when necessary for anxiety -Ativan and Haldol PRN for agitation/aggression -Patient was counselled on substance abuse and desired to cut back on use -Patient was informed of the risks, benefits and side effects of the medication and patient verbally consented to taking the medications. Patient signed med con sent form and was placed in chart. -Internal Medicine consult to perform medical evaluation and physical. -NRT - nicotine patch -SW on board for discharge planning. Encourage patient to participate in groups to work on coping skills. 05/31/22 12:39
--- NOTE | 2022-05-31 14:53 | P.CONS ---
History of Present Illness - Reason for Consult Consult date: 05/31/22 - History of Present Illness This is a 32 year old male who follows with Dr. Becky Cristobal outpatient with medical history of hypertension, anxiety, chronic back pain, migraines, and secondary hypogonadism. Patient reports anxiety/depression, ADD, Schizophrenia. Daily nicotinue use reports chewing tobacco and vaping. Prior history of opiate abuse. He reports to the emergency center with concern for hallucinations and d epression, reports hearing voices telling him to harm himself and this has been ongoing for the last 7 days. Reports feelings of self harm at this time and he was admitted for inpatient evaluation by psychiatry. Upon examination patient is also report increased feelings of anxiety and reports palpitations with left sided/epigastric chest pain. Denies dizziness/lightheadedness, denies diaphoresis. He has occasional feelings of nausea and shortness of breath. He states he was found to have elevated heart rate about 1 month ago at [facility] and has an appointment with cardiology on June 26 outpatient. He follows with Dr Colleir with endocrinology and was evaluated last in April with no current issues. He had chest xray done in the ER which is negative. EKG showing sinus tachycardia heart rate in the 120s. No specific ST or T wave changes noted. He remains tachycardic today heart rate of 124 and blood pressure of 131/86. He was recently evaluated on the medical floor for right sided parasthesia and facial droop and underwent neurology evaluation and work up with with negative CT and CTA of the brain, negative brain MRI. He was diagnosed with bells palsy and discharged on 04/19/22 with 7 days of acyclovir and prednisone. Currently this is resolved. This admission he presents with a white count of 12.9 with left shift, TSH of 0.457 with Free T4 in normal range at 0.86. He is resumed on home medications including clonidine, cymbalta, vistaril, invega. He has nicotine patch in place. Recommending at this time to hold vistaril and monitor heart rate. REVIEW OF SYSTEMS: CONSTITUTIONAL: No fever, no malaise, no fatigue. Reports feelings of anxiety. HEENT: No recent visual problems or hearing problems. Denied any sore throat. CARDIOVASCULAR: Reports left sided chest pain/tightness with palpitations PULMONARY: No shortness of breath, no cough, no hemoptysis. GASTROINTESTINAL: No diarrhea, no nausea, no vomiting, no abdominal pain. NEUROLOGICAL: No headaches, no weakness, no numbness. HEMATOLOGICAL: Denies any bleeding or petechiae. GENITOURINARY: Denies any burning micturition, frequency, or urgency. MUSCULOSKELETAL/RHEUMATOLOGICAL: Denies any joint pain, swelling, or any muscle pain. ENDOCRINE: Denies any polyuria or polydipsia. The rest of the 14-point review of systems is negative. PHYSICAL EXAMINATION: GENERAL: The patient is alert and oriented x3, not in any acute distress. Well developed, well nourished. HEENT: Pupils are round and equally reacting to light. EOMI. No scleral icterus. No conjunctival pallor. Normocephalic, atraumatic. No pharyngeal erythema. No thyromegaly. CARDIOVASCULAR: S1 and S2 present. No murmurs, rubs, or gallops. Tachycardic. PULMONARY: Chest is clear to auscultation, no wheezing or crackles. ABDOMEN: Soft, nontender, nondistended, normoactive bowel sounds. No palpable organomegaly. MUSCULOSKELETAL: No joint swelling or deformity. EXTREMITIES: No cyanosis, clubbing, or pedal edema. NEUROLOGICAL: Gross neurological examination did not reveal any focal deficits. SKIN: No rashes. Assessment and Plan Assessment Suicidal ideation with auditory hallucinations Anxiety with associated chest pain/shortness of breath and palpitations Chest pain, atypical troponin negative x 2, EKG reviewed likely from anxiety Sinus tachycardia History schizophrenia/ADD/Anxiety/Depression Hypertension Chronic back pain and migraines Daily nicotine/tobacco use History of substance abuse GI prophylaxis DVT prophylaxis early ambualation Full Code Plan Resume appropriate home medications Recommend at this time to hold vistaril as this medication can cause tachycardia TSH is low however T4 is low/normal recommend to repeat TSH outpatient and follow up with endocrinology Thank you for this consultation and we will follow along as needed. The impression and plan of care has been dictated by Kennedi Nguyen, Nurse Practitioner as directed. Dr. Lorena MD I have performed a history and physical examination and medical decision making of this patient, discussed the same with the dictator, and agree with the dictators assessment and plan as written, documented as a scribe. Based on total visit time, I have performed more than 50% of this visit. Past Medical History Past Medical History: Hypertension Additional Past Medical History / Comment(s): Severe anxiety, migraines, chronic back pain, difficulty with focusing attention. History of Any Multi-Drug Resistant Organisms: None Reported Past Surgical History: Orthopedic Surgery Additional Past Surgical History / Comment(s): Left wrist open reduction internal fixation, lipoma removed from right posterior shoulder. Past Anesthesia/Blood Transfusion Reactions: No Reported Reaction Past Psychological History: ADD/ADHD, Anxiety, Depression, Schizophrenia Additional Psychological History / Comment(s): OCD, ADD states he hears voices constantly Smoking Status: Current every day smoker Past Alcohol Use History: None Reported Additional Past Alcohol Use History / Comment(s): Patient is a smoker of one pack per day. He states he has not had alcohol since his DUI in May 2015. Hx of opiate 3 years ago. Patient reports chewing tobacco and vaping. 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 3-15 vicodin per day. Denies use since treatment.Rx for xanax that patient reports using 2 mg po bid. - Past Family History Father Family Medical History: Cancer, CVA/TIA, Myocardial Infarction ([place]) Additional Family Medical History / Comment(s): Father is alive at age 58. Patient states he has a rare cancer and undergoing chemotherapy. Mother Family Medical History: Coronary Artery Disease (CAD), Hypertension, Syncope Additional Family Medical History / Comment(s): Mother is alive at age 54 and also has history of anxiety and depression. Sister(s) History Unknown: Yes Family Medical History: No Reported History Medications and Allergies Home Medications Medication Instructions Recorded Confirmed Type Docusate Sodium [Dok] 100 mg PO BID PRN 02/27/22 05/31/22 History DULoxetine HCL [Cymbalta] 60 mg PO BID #60 cap 03/21/22 05/31/22 Rx hydrOXYzine pamoate 50 mg PO TID PRN 30 Days #90 cap 03/21/22 05/31/22 Rx Nicotine 14Mg/24Hr Patch [Habitrol] 1 patch TRANSDERM DAILY 04/18/22 05/31/22 History Paliperidone IM [Invega Sustenna] 234 mg IM Q28D 04/18/22 05/31/22 History Paliperidone [Invega] 9 mg PO HS 04/18/22 05/31/22 History Testosterone Cypionate 100 mg IM Q14D 04/18/22 05/31/22 History [Depo-Testosterone] cloNIDine HCL [Catapres] 0.1 mg PO QID 05/30/22 05/31/22 History hydrOXYzine pamoate [Vistaril] 100 mg PO HS 05/30/22 05/31/22 History Allergies Allergy/AdvReac Type Severity Reaction Status Date / Time No Known Allergies Allergy Verified 05/31/22 01:48 Physical Exam Vitals: Vital Signs Temp Pulse Pulse Resp BP BP Pulse Ox 05/31/22 08:16 124 H 20 131/86 05/31/22 02:09 97.6 F 106 H 15 115/66 95 05/30/22 20:24 98 16 109/71 94 L 05/30/22 15:01 98.2 F 129 H 16 133/82 97 Intake and Output 05/30/22 05/31/22 05/31/22 22:59 06:59 14:59 Other: Weight 104.326 kg 104.553 kg Results CBC & Chem 7: 05/30/22 15:52 05/30/22 15:52 Labs: Abnormal Lab Results - Last 24 Hours (Table) 05/30/22 05/30/22 Range/Units 15:52 15:52 WBC 12.9 H (3.8-10.6) k/uL Neutrophils # 9.0 H (1.3-7.7) k/uL TSH 0.457 L (0.465-4.680) mIU/L Assessment and Plan Time with Patient: Less than 30
[2022-05-31] MEDS: hydrOXYzine pamoate 25 MG CAP PO PRN (18:02)
[2022-05-31] MEDS: cloNIDine HCL 0.1 MG TAB PO SCH (20:43)
[2022-05-31] MEDS: PALIPERIDONE 3 MG TAB.ER.24 PO SCH (20:43)
[2022-05-31] MEDS ORDERED: DOXEPIN 10 MG CAP PO SCH (21:00)
[2022-05-31] MEDS ORDERED: hydrOXYzine pamoate 25 MG CAP PO SCH (21:00)
[2022-06-01] MEDS: hydrOXYzine pamoate 25 MG CAP PO PRN (08:42)
[2022-06-01] MEDS: cloNIDine HCL 0.1 MG TAB PO SCH (08:43)
[2022-06-01] MEDS: NICOTINE 14MG/24HR PATCH TRANSDERM SCH (08:43)
[2022-06-01] MEDS: DULoxetine HCL 60 MG CAPSULE.DR PO SCH (08:43)
[2022-06-01] MEDS: clonazePAM 0.5 MG TAB PO PRN ×2 (10:30→17:38)
--- NOTE | 2022-06-01 12:49 | P.PN ---
Progress Note - Text Progress Note Date: 06/01/22 Interval History: Patient was seen resting in bed and was directable and agreeable to speak with sign writer letterer or painter in his room. Currently, the patient is not reporting any suicidal or homicidal ideation. He does report auditory hallucinations however states that they're less severe than before. He denies any command type hallucinations. His primary concern is elevated anxiety. He continues to report that he feels like he is in a constant state of panic. He reports that this has been affecting his sleep as well. He states that he has had frequent nighttime awakenings. He is otherwise adherent with his medications and is not endorsing any significant side effects. He does report palpitations. Mental Status Exam: General Appearance: Patient appears to be stated age is alert, directable, and cooperative. Behavior: Patient is lying down in bed without any agitated behavior. Eye contact is appropriate. Speech: Patient's speech is fluent and nonpressured. Mood/Affect: Mood is nervous. Affect is congruent and anxious. Suicidality/Homicidality: Patient denies having any suicidal or homicidal ideation intent or plan. Perceptions: Patient denies any visual hallucinations however endorses auditory hallucinations. Though content/process: There is no evidence of any delusional thought content and thought process is linear and goal-directed. Memory and concentration: AOX3, grossly intact for the purposes of this session Judgment and insight: Improving mildly Vital Signs Temp 97.2 F L 06/01/22 08:53 Pulse 120 H 06/01/22 08:53 Resp 20 06/01/22 08:53 BP 131/82 06/01/22 08:53 Pulse Ox 95 05/31/22 02:09 FiO2 Laboratory Results - Last 24 Hours 05/31/22 12:37 Troponin I <0.012 Assessment Schizoaffective disorder Anxiety disorder, unspecified Nicotine dependence Benzodiazepine dependence Plan: -Patient continues to meet criteria for inpatient psychiatric admission for symptom stabilization and safety. Patient has signed adult voluntary form and medication consent and was placed in patient's chart. -Medications: Increase doxepin to 20 mg by mouth at bedtime for depression/anxiety/insomnia Decrease Cymbalta to 30 mg by mouth twice a day with plans to discontinue the medication tomorrow. Continue Invega 9 mg by mouth at bedtime for schizoaffective disorder We will discontinue Vistaril due to concerns for tachycardia. We will start Klonopin 0.5 mg by mouth 3 times a day when necessary. We will determine whether tachycardia improves and if so, we'll transition patient to a beta julius instead of benzodiazepine. -When necessary Ativan and Haldol for agitation/aggression. -NRT - nicotine patch -SW on board for discharge planning. Encouraged the patient to participate in milieu.
[2022-06-01] MEDS: PALIPERIDONE 3 MG TAB.ER.24 PO SCH (20:33)
[2022-06-01] MEDS ORDERED: DULoxetine HCL 30 MG CAPSULE.DR PO SCH (21:00)
[2022-06-01] MEDS ORDERED: DOXEPIN 10 MG CAP PO SCH (21:00)
--- NOTE | 2022-06-01 23:16 | P.CONS ---
History of Present Illness - Reason for Consult Consult date: 06/01/22 - History of Present Illness The patient is a 32-year-old male who had presented to the emergency room with complaints of depression and anxiety. The patient was admitted to mental health unit where he was seen and evaluated. The patient reports that he has been struggling with the above symptoms for the past several weeks, which prompted him to eventually seek out further help. He denied experiencing chest discomfor t, shortness of breath, chills, cough, nausea, vomiting, abdominal pain, diarrhea. He reports smoking 5 cigarettes daily. He denied alcohol or illicit substance use. Laboratory evaluation was reviewed and was remarkable for leukocytosis of 12.9 and TSH 0.457. Free T4 and T3 levels were within normal limits. Review of systems: Pertinent positives and negatives as discussed in HPI, a complete review of systems was performed and all other systems are negative. Physical examination: General: non toxic, no distress, appears at stated age, obese Derm: no unusual rashes/lesions, no unusual ecchymoses, warm, dry Head: atraumatic, normocephalic, symmetric Eyes: EOMI, no lid lag, anicteric sclera ENT: Nose and ears atraumatic, no thrush, no pharyngeal erythema Neck: trachea midline, supple Mouth: no lip lesion, mucus membranes moist Cardiovascular: S1S2 reg, no murmur, no edema Lungs: CTA bilateral, no rhonchi, no rales , no accessory muscle use Abdominal: soft, nontender to palpation, no guarding Ext: no gross muscle atrophy, no contractures, Neuro: No gross focal neuro deficits noted Psych: Alert, oriented, appropriate affect Assessment/plan Leukocytosis -No signs of active infection at this time -Likely secondary to ongoing stressor Low TSH -T4 and T3 levels within normal limits Depression and anxiety -As per psychiatry Thank you for allowing us to participate in the care of this patient. We will follow peripherally. Do not hesitate to contact us with questions. Someone can be reached from the [facility] hospitalist group at all hours of the day at [phone]. Past Medical History Past Medical History: Hypertension Additional Past Medical History / Comment(s): Severe anxiety, migraines, chronic back pain, difficulty with focusing attention. History of Any Multi-Drug Resistant Organisms: None Reported Past Surgical History: Orthopedic Surgery Additional Past Surgical History / Comment(s): Left wrist open reduction internal fixation, lipoma removed from right posterior shoulder. Past Anesthesia/Blood Transfusion Reactions: No Reported Reaction Past Psychological History: ADD/ADHD, Anxiety, Depression, Schizophrenia Additional Psychological History / Comment(s): OCD, ADD states he hears voices constantly Smoking Status: Current every day smoker Past Alcohol Use History: None Reported Additional Past Alcohol Use History / Comment(s): Patient is a smoker of one pack per day. He states he has not had alcohol since his DUI in May 2015. Hx of opiate 3 years ago. Patient reports chewing tobacco and vaping. 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 3-15 vicodin per day. Denies use since treatment.Rx for xanax that patient reports using 2 mg po bid. - Past Family History Father Family Medical History: Cancer, CVA/TIA, Myocardial Infarction ([place]) Additional Family Medical History / Comment(s): Father is alive at age 58. Patient states he has a rare cancer and undergoing chemotherapy. Mother Family Medical History: Coronary Artery Disease (CAD), Hypertension, Syncope Additional Family Medical History / Comment(s): Mother is alive at age 54 and also has history of anxiety and depression. Sister(s) History Unknown: Yes Family Medical History: Hyperlipidemia Medications and Allergies Home Medications Medication Instructions Recorded Confirmed Type Docusate Sodium [Dok] 100 mg PO BID PRN 02/27/22 05/31/22 History DULoxetine HCL [Cymbalta] 60 mg PO BID #60 cap 03/21/22 05/31/22 Rx hydrOXYzine pamoate 50 mg PO TID PRN 30 Days #90 cap 03/21/22 05/31/22 Rx Nicotine 14Mg/24Hr Patch [Habitrol] 1 patch TRANSDERM DAILY 04/18/22 05/31/22 History Paliperidone IM [Invega Sustenna] 234 mg IM Q28D 04/18/22 05/31/22 History Paliperidone [Invega] 9 mg PO HS 04/18/22 05/31/22 History Testosterone Cypionate 100 mg IM Q14D 04/18/22 05/31/22 History [Depo-Testosterone] cloNIDine HCL [Catapres] 0.1 mg PO QID 05/30/22 05/31/22 History hydrOXYzine pamoate [Vistaril] 100 mg PO HS 05/30/22 05/31/22 History Allergies Allergy/AdvReac Type Severity Reaction Status Date / Time No Known Allergies Allergy Verified 05/31/22 01:48 Physical Exam Vitals: Vital Signs Temp Pulse Resp BP 06/01/22 08:53 97.2 F L 120 H 20 131/82 Results CBC & Chem 7: 05/30/22 15:52 05/30/22 15:52
[2022-06-02 06:42] LABS: HCT 46.9 % (39.0-53.0); HGB 15.8 gm/dL (13.0-17.5); MCH 28.4 pg (25.0-35.0); MCHC 33.7 g/dL (31.0-37.0); MCV 84.5 fL (80.0-100.0); Platelet Count 268 k/uL (150-450); RBC 5.55 m/uL (4.30-5.90); RDW 13.7 % (11.5-15.5); WBC 9.2 k/uL (3.8-10.6)
[2022-06-02] MEDS: NICOTINE 14MG/24HR PATCH TRANSDERM SCH (08:20)
[2022-06-02] MEDS: clonazePAM 0.5 MG TAB PO PRN (08:21)
--- NOTE | 2022-06-02 12:11 | P.PN ---
Progress Note - Text Progress Note Date: 06/02/22 Interval History: Patient was seen resting in bed and was directable and agreeable to speak with investment underwriter in his room. Currently, the patient is not reporting any suicidal or homicidal ideation. He is denying any auditory or visual hallucinations. He reports no paranoia or other delusions. He does state his palpitations have decreased but continues to be tachycardic. He is in agreement to trial Inderal for anxiety and tachycardia/palpitations. He reports he experiences restless legs at bedtime. He denies any side effects of his medications. He remains primarily isolative to himself in his room. Mental Status Exam: General Appearance: Patient appears to be stated age is alert, directable, and cooperative. Behavior: Patient is lying down in bed without any agitated behavior. Eye contact is appropriate. Speech: Patient's speech is fluent and nonpressured. Mood/Affect: Mood is "still anxious." Affect is incongruent and appears constricted. Suicidality/Homicidality: Patient denies having any suicidal or homicidal ideation intent or plan. Perceptions: Patient denies any visual hallucinations or auditory hallucinations. Though content/process: There is no evidence of any delusional thought content and thought process is linear and goal-directed. Memory and concentration: AOX3, grossly intact for the purposes of this session Judgment and insight: Improving mildly Vital Signs Temp 97.2 F L 06/01/22 08:53 Pulse 120 H 06/01/22 08:53 Resp 20 06/01/22 08:53 BP 131/82 06/01/22 08:53 Pulse Ox 95 05/31/22 02:09 FiO2 Laboratory Results - Last 24 Hours 06/02/22 06:06 WBC 9.2 RBC 5.55 Hgb 15.8 Hct 46.9 MCV 84.5 MCH 28.4 MCHC 33.7 RDW 13.7 Plt Count 268 MPV 7.0 Assessment Schizoaffective disorder Anxiety disorder, unspecified Nicotine dependence Benzodiazepine dependence Plan: -Patient continues to meet criteria for inpatient psychiatric admission for symptom stabilization and safety. Patient has signed adult voluntary form and medication consent and was placed in patient's chart. -Medications: Increase doxepin to 50 mg by mouth at bedtime for depression/anxiety/insomnia Discontinue cymbalta. Continue Invega 9 mg by mouth at bedtime for schizoaffective disorder Start Inderal 20 mg three times daily for anxiety/tachycardia. -When necessary Ativan and Haldol for agitation/aggression. -NRT - nicotine patch -SW on board for discharge planning. Encouraged the patient to participate in milieu.
[2022-06-02] MEDS: PROPRANOLOL 20 MG TAB PO SCH ×2 (14:54→20:29)
[2022-06-02] MEDS: PALIPERIDONE 3 MG TAB.ER.24 PO SCH (20:28)
[2022-06-02] MEDS ORDERED: DOXEPIN 25 MG CAP PO SCH (21:00)
[2022-06-03] MEDS: PROPRANOLOL 20 MG TAB PO SCH ×3 (08:15→20:30)
[2022-06-03] MEDS: NICOTINE 14MG/24HR PATCH TRANSDERM SCH (08:15)
[2022-06-03] MEDS ORDERED: VENLAFAXINE HCL ER 37.5 MG CAP PO STA (17:47)
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
[2022-06-03] MEDS: MIRTAZAPINE 15 MG TAB PO SCH (20:30)
[2022-06-04] MEDS: VENLAFAXINE HCL ER 75 MG CAP PO SCH (08:06)
[2022-06-04] MEDS: NICOTINE 14MG/24HR PATCH TRANSDERM SCH (08:06)
[2022-06-04] MEDS: PROPRANOLOL 20 MG TAB PO SCH ×3 (08:06→20:20)
[2022-06-04] MEDS ORDERED: PALIPERIDONE 3 MG TAB.ER.24 PO SCH (09:00)
[2022-06-04 16:46] VITALS: RESP 16; TEMP 97.5
[2022-06-04] MEDS: MIRTAZAPINE 15 MG TAB PO SCH (20:20)
[2022-06-04 23:06] VITALS: BP 129/86; PULSE 85
--- NOTE | 2022-06-04 23:52 | P.PN ---
Progress Note - Text Progress Note Date: 06/04/22 Interval history: Patient was seen sitting in the lounge, socializing with peers, and was directable and agreeable to speak with telegraphic typewriter operator chief. He reports feeling better today with improved mood and less anxiety today after making medication adjustments yesterday. He reports he continues to have episodes of tachycardia intermittently throughout the day. Vitals reviewed and his HR this morning was 124 bpm. On repeat check at time of our assessment at around 8:00 pm it was 85. He denies auditory or visual hallucinations today. We discussed his auditory hallucinations appear to be more trauma/stressor related and he may do better on a lower dose of Invega and a higher dose of Effexor XR, to which he agrees. At this time, patient denies any suicidal or homicidal ideation, intent or plan. He has been compliant with his medications and denies side effects except for the tachycardia. Mental status exam: General Appearance: Patient appears to be stated age, fair hygiene, dressed in clean casual attire Behavior: No agitated behavior. Patient is anxious and directable. Speech: Patient's speech is fluent and non-pressured. Mood/Affect: Mood is improving mildly, still depressed and anxious but better today, affect is congruent and constricted. Suicidality/Homicidality: Patient denies having any suicidal or homicidal ideation intent or plan. Perceptions: Patient endorses auditory hallucinations as described above, and denies visual hallucinations. Though content/process: There is no evidence of any delusional thought content and thought process is linear. Memory and concentration: AOX3, grossly intact for the purposes of this session Judgment and insight: improving mildly Assessment/Plan: Continue with current diagnosis. Patient continues to meet criteria for inpatient psychiatric admission for symptom stabilization and safety. Discontinue oral Invega for now and continue on Invega Sustenna 234 mg IM with next dose due on 06/20/2022. Continue Effexor XR 75 mg daily in the morning for anxiety/panic/depression, with plan to increase as tolerated. Continue Remeron 15 mg QHS for depression/sleep. Discontinue Propranolol 20 mg TID and start Inderal LA 80 mg daily in the morning starting tomorrow for tachycardia/anxiety. Monitor vital signs. Monitor for medication compliance and for any psychotropic medication side effects. Will continue to monitor ongoing response to treatment. Encouraged participation in milieu.
[2022-06-05] MEDS: NICOTINE 14MG/24HR PATCH TRANSDERM SCH (08:21)
[2022-06-05] MEDS: PROPRANOLOL LA 80 MG CAP.SA.24H PO SCH (08:21)
[2022-06-05] MEDS: VENLAFAXINE HCL ER 75 MG CAP PO SCH (08:23)
--- NOTE | 2022-06-05 11:54 | P.DS ---
Providers Date of admission: 05/31/22 01:33 Expected date of discharge: 06/05/22 Attending physician: Chetan aVlentino MD Consults: 05/31/22 01:37 Consult Physician Routine Consulting Provider: Thomas Noguera Consult Reason/Comments: For H & P for Medical Follow Up Do you want consulting provider notified?: Yes Primary care physician: Becky Cristobal - Discharge Diagnosis(es) (1) Schizoaffective disorder Current Visit: Yes Status: Acute Priority: High (2) Generalized anxiety disorder Current Visit: Yes Status: Acute Priority: High (3) Nicotine dependence Current Visit: Yes Status: Chronic Priority: Medium (4) Benzodiazepine dependence in remission Current Visit: Yes Status: Chronic Priority: Low Hospital Course: Admission HPI: Patient is a , on Social Security disability, 32-year-old male with a significant history of benzodiazepine dependence and schizophrenia presented to our hospital for worsening anxiety. Patient presented to the hospital on 05/30/2022, but into the hospital on recommendation from [facility] for worsening anxiety and suicidal ideation. EKG was performed in the emergency department and the patient was found to be in sinus tachycardia. Auditory hallucinations are commanding him to kill himself. The patient was subsequently admitted onto the psychiatric unit voluntarily. Upon admission onto the psychiatric unit, the patient reports that he has been feeling extremely anxious. He reports that this anxiety has been causing him to feel suicidal. He reports a constant state of worry. Of note, the patient does have a significant history of benzodiazepine dependence. As per chart review, the patient felt that he was extremely overwhelmed over the holidays and took a Klonopin. He was on a regimen of Suboxone with [facility] however felt that the medication did not address his complaints of anxiety. On top of his complaints of anxiety, the patient reports that he has been experiencing worsening auditory hallucinations. He reports that he has been experiencing voices telling him that he is worthless and that he should kill himself. He otherwise reports that his sleep is poor. He reports no issues regarding his appetite. He is currently not endorsing any homicidal ideation, intention, and/or plan. He does report increased depression, hopelessness, helplessness, anhedonia. He is not reporting any manic or hypomanic symptoms. Patient states that he has a history of schizophrenia and benzodiazepine dependence . History of numerous medications including Abilify, Vistaril, Zoloft, Benadryl, Xanax, Cymbalta, Prolixin, Klonopin, and trazodone. Was last hospitalized in our psychiatric unit in March 2022. He is currently open with [facility]. He reports multiple attempts at suicide in the past. Hospital course: Upon admission to the unit patient was initially endorsing elevated anxiety. Patient was however directable and agreeable to commence treatment. Patient got along well with other patients on the unit and followed unit protocol. Patient was compliant with the medications and denied any side effects throughout hospital course. Patient was started on his home medication of invega, cymbalta and catapres. Doxepin was started for anxiety. Patient spoke of his stressors and engaged in therapy both group and individual. He however felt that doxepin did not have any benefit and the patient was started on effexor. His cymbalta was tapered off. Remeron was also added to his regimen for sleep and inderal 80 mg daily was started for anxity/tachycardia. Patient was also seen by medical team for history and physical exam. On his regimen of inderal, effexor, remeron, and invega sustenna the patient displayed significant improvment in regards to his target symptoms of anxiety and panic. On the day of discharge patient denied any suicidal or homicidal ideations intent or plan denied any auditory or visual hallucinations. Patient endorsed wanting to live for his health and family. The patient denied any access to guns or weapons. Patient denied any paranoia and did not endorse any delusions. Patient does have a significant history of substance abuse however was counseled on abstaining from all substances including alcohol and marijuana.Patient was also counseled on the medications and need for regular compliance and was encouraged to follow-up with their outpa tient appointment for mental health and also for primary care. Prior to discharge a family meeting will be arranged by clinical social work therapist to answer any questions and ensure safety upon discharge. Mental status exam: General Appearance: Patient appears to be stated age is alert, pleasant, and cooperative. Patient is in no acute distress and has fair hygiene and grooming Behavior: Patient is calmly seated without any agitated behavior. Speech: Patient's speech is fluent and nonpressured. Mood/Affect: Patient reports their mood is "much better", affect is congruent and constricted in range. Suicidality/Homicidality: Patient denies having any suicidal or homicidal ideation intent or plan. Perceptions: Patient denies any auditory or visual hallucinations. Though content/process: There is no evidence of any delusional thought content and thought process is linear and goal-directed. Patient appears to be future oriented Memory and concentration: AOX3, grossly intact for the purposes of this session. Can spell "WORLD" backwards correctly. Judgment and insight: Improved with guarded prognosis Impression: Schizoaffective disorder Generalized Anxiety Disorder Nicotine dependence Benzodiazepine dependence Plan: -Continue with discharge today as patient has improved and stabilized psychiatrically and is not currently an imminent threat to himself and/or others. Patient will remain at chronically elevated risk for harm to self and/or others due to his history of substance use. -Continue medications: Inderal 80 mg daily for anxiety/tachycardia Requip 0.25 mg at bedtime for Restless Leg Syndrome Effexor XR 75 mg daily for depression/anxiety Remeron 15 mg at bedtime for depression/insomnia Patient is to continue his invega sustenna 234 mg IM due on 06/20/2022. -Patient was counseled on the need for medication compliance and appropriate follow-up at mental health and also primary care for medical issues. Patient verbalized understanding and agreed. -Social work to arrange for and conduct family meeting to ensure safety upon discharge and answer any questions/concerns. Social work also to arrange for patients follow up appointments with [facility] for psychiatric care along with follow up with primary care provider. -Patient counseled on abstaining from recreational drugs and marijuana and alcohol. Was informed/educated on the adverse effects on their physical and mental health. Patient verbally agreed and understood. -Patient was instructed to return to the hospital or seek immediate medical care if their psychiatric or medical symptoms do worsen or reoccur. -Psychoeducation and supportive therapy provided to patient. Risks and benefits of pharmacological treatment versus the risks and benefits of nontreatment weight and discussed. Informed consent discussion held. Common side effects of psychotropics discussed such as, but not limited to headache, GI disturbance, sexual dysfunction, movement disorders, sedation, and orthostatic hypotension. Life threatening and blackbox warnings of prescribed medications also discussed. Potential risks of operating a vehicle or heavy machinery discussed with patient at length. Advised on importance of compliance and a reliable and responsible manner. Patient advised to review FDA consumer labeling of all medications prior to taking. Patient verbalized understanding of potential risks, and agrees with current treatment plan. Patient advised to medically contact physician/emergency personnel if any acute changes in condition occur. Vital Signs Temp 97.5 F L 06/04/22 16:00 Pulse 85 06/04/22 20:25 Resp 16 06/04/22 16:00 BP 129/86 06/04/22 20:25 Pulse Ox 97 06/04/22 16:00 FiO2 Intake & Output 06/04/22 06/05/22 06/05/22 18:59 06:59 18:59 Weight 105 kg Laboratory Results WBC 9.2 k/uL (3.8-10.6) 06/02/22 06:06 RBC 5.55 m/uL (4.30-5.90) 06/02/22 06:06 Hgb 15.8 gm/dL (13.0-17.5) 06/02/22 06:06 Hct 46.9 % (39.0-53.0) 06/02/22 06:06 MCV 84.5 fL (80.0-100.0) 06/02/22 06:06 MCH 28.4 pg (25.0-35.0) 06/02/22 06:06 MCHC 33.7 g/dL (31.0-37.0) 06/02/22 06:06 RDW 13.7 % (11.5-15.5) 06/02/22 06:06 Plt Count 268 k/uL (150-450) 06/02/22 06:06 MPV 7.0 06/02/22 06:06 Neutrophils % 70 % 05/30/22 15:52 Lymphocytes % 20 % 05/30/22 15:52 Monocytes % 6 % 05/30/22 15:52 Eosinophils % 2 % 05/30/22 15:52 Basophils % 1 % 05/30/22 15:52 Neutrophils # 9.0 k/uL (1.3-7.7) H 05/30/22 15:52 Lymphocytes # 2.5 k/uL (1.0-4.8) 05/30/22 15:52 Monocytes # 0.8 k/uL (0-1.0) 05/30/22 15:52 Eosinophils # 0.2 k/uL (0-0.7) 05/30/22 15:52 Basophils # 0.1 k/uL (0-0.2) 05/30/22 15:52 PT 10.2 sec (9.0-12.0) 05/30/22 15:52 INR 1.0 (<1.2) 05/30/22 15:52 APTT 25.8 sec (22.0-30.0) 05/30/22 15:52 Sodium 140 mmol/L (137-145) 05/30/22 15:52 Potassium 4.2 mmol/L (3.5-5.1) 05/30/22 15:52 Chloride 104 mmol/L (98-107) 05/30/22 15:52 Carbon Dioxide 27 mmol/L (22-30) 05/30/22 15:52 Anion Gap 9 mmol/L 05/30/22 15:52 BUN 13 mg/dL (9-20) 05/30/22 15:52 Creatinine 0.95 mg/dL (0.66-1.25) 05/30/22 15:52 Est GFR (CKD-EPI)AfAm >90 (>60 ml/min/1.73 sqM) 05/30/22 15:52 Est GFR (CKD-EPI)NonAf >90 (>60 ml/min/1.73 sqM) 05/30/22 15:52 Glucose 93 mg/dL (74-99) 05/30/22 15:52 Calcium 9.8 mg/dL (8.4-10.2) 05/30/22 15:52 Magnesium 2.1 mg/dL (1.6-2.3) 05/30/22 15:52 Total Bilirubin 0.4 mg/dL (0.2-1.3) 05/30/22 15:52 AST 23 U/L (17-59) 05/30/22 15:52 ALT 28 U/L (4-49) 05/30/22 15:52 Alkaline Phosphatase 64 U/L (38-126) 05/30/22 15:52 Troponin I <0.012 ng/mL (0.000-0.034) 05/31/22 12:37 Total Protein 7.4 g/dL (6.3-8.2) 05/30/22 15:52 Albumin 4.6 g/dL (3.5-5.0) 05/30/22 15:52 TSH 0.457 mIU/L (0.465-4.680) L 05/30/22 15:52 Free T4 0.86 ng/dL (0.78-2.19) 05/30/22 15:52 Free T3 pg/mL 4.6 pg/ml (2.8-5.3) 05/30/22 15:52 Urine Color Colorless 05/30/22 15:52 Urine Appearance Clear (Clear) 05/30/22 15:52 Urine pH 6.0 (5.0-8.0) 05/30/22 15:52 Ur Specific [place] 1.007 (1.001-1.035) 05/30/22 15:52 Urine Protein Negative (Negative) 05/30/22 15:52 Urine Glucose (UA) Negative (Negative) 05/30/22 15:52 Urine Ketones Negative (Negative) 05/30/22 15:52 Urine Blood Negative (Negative) 05/30/22 15:52 Urine Nitrite Negative (Negative) 05/30/22 15:52 Urine Bilirubin Negative (Negative) 05/30/22 15:52 Urine Urobilinogen <2.0 mg/dL (<2.0) 05/30/22 15:52 Ur Leukocyte Esterase Negative (Negative) 05/30/22 15:52 Urine Opiates Screen Not Detected (NotDetected) 05/30/22 15:52 Ur Oxycodone Screen Not Detected (NotDetected) 05/30/22 15:52 Urine Methadone Screen Not Detected (NotDetected) 05/30/22 15:52 Ur Propoxyphene Screen Not Detected (NotDetected) 05/30/22 15:52 Ur Barbiturates Screen Not Detected (NotDetected) 05/30/22 15:52 U Tricyclic Antidepress Not Detected (NotDetected) 05/30/22 15:52 Ur Phencyclidine Scrn Not Detected (NotDetected) 05/30/22 15:52 Ur Amphetamines Screen Not Detected (NotDetected) 05/30/22 15:52 U Methamphetamines Scrn Not Detected (NotDetected) 05/30/22 15:52 U Benzodiazepines Scrn Not Detected (NotDetected) 05/30/22 15:52 Urine Cocaine Screen Not Detected (NotDetected) 05/30/22 15:52 U Marijuana (THC) Screen Not Detected (NotDetected) 05/30/22 15:52 Coronavirus (PCR) Not Detected (Not Detectd) 05/31/22 00:24 Allergies Allergy/AdvReac Type Severity Reaction Status Date / Time No Known Allergies Allergy Verified 05/31/22 01:48 Patient Condition at Discharge: Stable Plan - Discharge Summary Discharge Rx Participant: No New Discharge Prescriptions: New Nicotine 14Mg/24Hr Patch [Habitrol] 1 patch TRANSDERM DAILY 30 Days #30 patch Propranolol LA [Inderal LA] 80 mg PO DAILY 30 Days #30 cap rOPINIRole HCL [Requip] 0.25 mg PO HS 30 Days #30 tab Venlafaxine HCl ER [Effexor XR] 75 mg PO DAILY 30 Days #30 cap Mirtazapine [Remeron] 15 mg PO HS 30 Days #30 tab Continue Docusate Sodium [Dok] 100 mg PO BID PRN PRN Reason: Constipation hydrOXYzine pamoate [Vistaril] 100 mg PO HS Testosterone Cypionate [Depo-Testosterone] 100 mg IM Q14D Paliperidone IM [Invega Sustenna] 234 mg IM Q28D Discontinued Paliperidone [Invega] 9 mg PO HS Nicotine 14Mg/24Hr Patch [Habitrol] 1 patch TRANSDERM DAILY cloNIDine HCL [Catapres] 0.1 mg PO QID hydrOXYzine pamoate 50 mg PO TID PRN 30 Days #90 cap PRN Reason: Anxiety DULoxetine HCL [Cymbalta] 60 mg PO BID #60 cap Discharge Medication List Docusate Sodium [Dok] 100 mg PO BID PRN 02/27/22 [History] Paliperidone IM [Invega Sustenna] 234 mg IM Q28D 04/18/22 [History] Testosterone Cypionate [Depo-Testosterone] 100 mg IM Q14D 04/18/22 [History] hydrOXYzine pamoate [Vistaril] 100 mg PO HS 05/30/22 [History] Mirtazapine [Remeron] 15 mg PO HS 30 Days #30 tab 06/05/22 [Rx] Nicotine 14Mg/24Hr Patch [Habitrol] 1 patch TRANSDERM DAILY 30 Days #30 patch 06/05/22 [Rx] Propranolol LA [Inderal LA] 80 mg PO DAILY 30 Days #30 cap 06/05/22 [Rx] Venlafaxine HCl ER [Effexor XR] 75 mg PO DAILY 30 Days #30 cap 06/05/22 [Rx] rOPINIRole HCL [Requip] 0.25 mg PO HS 30 Days #30 tab 06/05/22 [Rx] Follow up Appointment(s)/Referral(s): [facility] [Outside] - 06/07/22 9:30 am (06/07/2022 9:30AM - 10:30AM with HUMA GRANADOS 06/13/2022 10:30AM - 11:30AM with [facility]) Becky Cristobal MD [Primary Care Provider] - 1-2 days Patient Instructions/Handouts: How to Stop Smoking (DC), Schizoaffective Disorder (DC), Anxiety (GEN) Activity/Diet/Wound Care/Special Instructions: Avoid the use of street drugs and alcohol. Take all prescriptions as prescribed. When you are in need of refills on your medications, please contact your medical provider and/or outpatient psychiatrist to have this done. Please go to scheduled outpatient appointment for aftercare treatment. If symptoms return or become worse, call the crisis line at and/or go to the nearest emergency room for evaluation Discharge Disposition: HOME SELF-CARE
== END 2022-06-05 13:37 | disposition home or self-care (01) | DRG 885 ==
LOC: EC 14:33 → 3MHU 05-31 01:33
PROVIDERS: ADMIT Psychiatry & Neurology Psychiatry; ATTEND Psychiatry & Neurology Psychiatry
DX: F25.9 Schizoaffective disorder, unspecified (principal); R45.851 Suicidal ideations; F41.1 Generalized anxiety disorder; F13.21 Sedative, hypnotic or anxiolytic dependence, in remission; F17.210 Nicotine dependence, cigarettes, uncomplicated; F32.A Depression, unspecified; F42.9 Obsessive-compulsive disorder, unspecified; F90.9 Attention-deficit hyperactivity disorder, unspecified type; G25.81 Restless legs syndrome; G51.0 Bell's palsy; G89.29 Other chronic pain; I10 Essential (primary) hypertension; Z20.822 Contact with and (suspected) exposure to COVID-19; Z56.0 Unemployment, unspecified; Z79.899 Other long term (current) drug therapy
CPT/HCPCS: 36415; 71046; 80053; 80306; 81003; 82075; 83735; 84439; 84443; 84481; 84484; 85025; 85027; 85610; 85730; 87635; 93005; 96374; 99285

== ENCOUNTER 2022-08-07 23:50 | Emergency (ER) | payer OTHER ==
[2022-08-08] MEDS ORDERED: SODIUM CHLORIDE 0.9% 1,000 ML IV ONE (00:09)
[2022-08-08 00:12] VITALS: TEMP 97.8
--- NOTE | 2022-08-08 00:18 | ED ---
General Adult HPI - General Chief complaint: Arrhythmia/Palpitations Stated complaint: tachycardia Time Seen by Provider: 08/07/22 23:51 Source: patient, EMS, RN notes reviewed, old records reviewed Mode of arrival: EMS Limitations: no limitations - History of Present Illness Initial comments: 32 yo male presenting for evaluation of lightheadedness, tachycardia. Patient states he does have history of tachycardia and believes he is on metoprolol. He states he took this medication this morning as prescribed. He's had 2 episodes of lightheadedness over the past week. No vomiting. No diarrhea. No fever. No chest pain or difficulty breathing. No abdominal pain. - Related Data Home Medications Medication Instructions Recorded Confirmed Docusate Sodium [Dok] 100 mg PO BID PRN 02/27/22 05/31/22 Paliperidone IM [Invega Sustenna] 234 mg IM Q28D 04/18/22 05/31/22 Testosterone Cypionate 100 mg IM Q14D 04/18/22 05/31/22 [Depo-Testosterone] hydrOXYzine pamoate [Vistaril] 100 mg PO HS 05/30/22 05/31/22 Previous Rx's Medication Instructions Recorded Mirtazapine [Remeron] 15 mg PO HS 30 Days #30 tab 06/05/22 Nicotine 14Mg/24Hr Patch [Habitrol] 1 patch TRANSDERM DAILY 30 Days 06/05/22 #30 patch Propranolol LA [Inderal LA] 80 mg PO DAILY 30 Days #30 cap 06/05/22 Venlafaxine HCl ER [Effexor XR] 75 mg PO DAILY 30 Days #30 cap 06/05/22 rOPINIRole HCL [Requip] 0.25 mg PO HS 30 Days #30 tab 06/05/22 Allergies Allergy/AdvReac Type Severity Reaction Status Date / Time No Known Allergies Allergy Verified 07/19/22 09:33 Review of Systems ROS Statement: Those systems with pertinent positive or pertinent negative responses have been documented in the HPI. ROS Other: All systems not noted in ROS Statement are negative. Past Medical History Past Medical History: Hypertension Additional Past Medical History / Comment(s): Severe anxiety, migraines, chronic back pain, difficulty with focusing attention. History of Any Multi-Drug Resistant Organisms: None Reported Past Surgical History: Orthopedic Surgery Additional Past Surgical History / Comment(s): Left wrist open reduction internal fixation, lipoma removed from right posterior shoulder. Past Anesthesia/Blood Transfusion Reactions: No Reported Reaction Past Psychological History: ADD/ADHD, Anxiety, Depression, Schizophrenia Smoking Status: Vaper Past Alcohol Use History: None Reported Past Drug Use History: None Reported - Past Family History Father Family Medical History: Cancer, CVA/TIA, Myocardial Infarction ([place]) Additional Family Medical History / Comment(s): Father is alive at age 58. Patient states he has a rare cancer and undergoing chemotherapy. Mother Family Medical History: Coronary Artery Disease (CAD), Hypertension, Syncope Additional Family Medical History / Comment(s): Mother is alive at age 54 and also has history of anxiety and depression. Sister(s) History Unknown: Yes Family Medical History: Hyperlipidemia General Exam Limitations: no limitations General appearance: alert, in no apparent distress Head exam: Present: atraumatic, normocephalic Eye exam: Present: normal appearance, PERRL ENT exam: Present: mucous membranes dry Neck exam: Present: normal inspection. Absent: tenderness, meningismus Respiratory exam: Present: normal lung sounds bilaterally. Absent: respiratory distress, wheezes Cardiovascular Exam: Present: normal rhythm, tachycardia GI/Abdominal exam: Present: soft. Absent: distended, tenderness, guarding, rebound Extremities exam: Present: normal inspection, normal capillary refill. Absent: pedal edema Neurological exam: Present: alert, oriented X3, CN II-XII intact. Absent: motor sensory deficit Skin exam: Present: warm, dry Course Vital Signs 08/08/22 08/08/22 08/08/22 00:06 01:20 01:59 Temperature 97.8 F Pulse Rate 130 H 129 H 121 H Respiratory 18 18 16 Rate Blood Pressure 122/73 122/57 130/65 O2 Sat by Pulse 96 98 97 Oximetry 08/08/22 02:11 Temperature Pulse Rate 118 H Respiratory 16 Rate Blood Pressure 138/68 O2 Sat by Pulse 98 Oximetry - Reevaluation(s) Reevaluation #1: 08/08/22 02:45 Patient reevaluated, resting comfortably. He is eager for discharge. He states this is his baseline heart rate typically between 120 and 1:30. He states his lightheadedness is improved. EKG Findings - EKG Comments: EKG Findings:: EKG sinus tachycardia rate of 129, VT interval 128, QRS duration 94, QTC 462, no ST segment elevation - EKG Results: EKG: interpreted by [facility] Medical Decision Making - Medical Decision Making Was pt. sent in by a medical professional or institution (, RICKEY, THEATER MANAGER, urgent care, hospital, or care home...) When possible be specific @ -[No] Did you speak to anyone other than the patient for history (EMS, parent, family, police, friend...)? What history was obtained from this source @ -[No] Did you review nursing and triage notes (agree or disagree)? Why? @ -[I reviewed and agree with nursing and triage notes] Were old charts reviewed (outside hosp., previous admission, EMS record, old E KG, old radiological studies, urgent care reports/EKG's, care home records)? Report findings @ -The previous laboratory testing, reviewed previous EKGs Differential Diagnosis (chest pain, altered mental status, abdominal pain women, abdominal pain men, vaginal bleeding, weakness, fever, dyspnea, syncope, headache, dizziness, GI bleed, back pain, seizure, CVA, palpatations, mental health, musculoskeletal)? @ -Differential Palpitations Ventricular arrhythmias, atrial arrhythmias, myocardial infarction, anemia, thyrotoxicosis, electrolyte imbalance, hypokalemia, pulmonary embolism, pulmonary disease, drugs, alcohol, anxiety, stress.... This is not meant to be an all-inclusive list. EKG interpreted by me (3pts min.). @ -[As above] X-rays interpreted by me (1pt min.). @ -Chest x-ray negative for acute cardiopulmonary findings reviewed by myself CT interpreted by me (1pt min.). @ -[None done] U/S interpreted by me (1pt. min.). @ -[None done] What testing was considered but not performed or refused? (CT, X-rays, U/S, labs)? Why? @ -[None] What meds were considered but not given or refused? Why? @ -[None] Did you discuss the management of the patient with other professionals (prof molina i.e. , RICKEY, THEATER MANAGER, lab, RT, psych nurse, social service director, rhit, teacher, worldwide chief creative officer, onsite case manager)? Give summary @ -[No] Was smoking cessation discussed for >3mins.? @ -[No] Was critical care preformed (if so, how long)? @ -[No] Were there social determinants of health that impacted care today? How? (Homelessness, low income, unemployed, alcoholism, drug addiction, trans portation, low edu. Level, literacy, decrease access to med. care, usp, rehab)? @ -[No] Was there de-escalation of care discussed even if they declined (Discuss DNR or withdrawal of care, Hospice)? DNR status @ -[No] What co-morbidities impacted this encounter? (DM, HTN, Smoking, COPD, CAD, Cancer, CVA, ARF, Chemo, Hep., AIDS, mental health diagnosis, sleep apnea, morbid obesity)? @ -Tachycardia Was patient admitted / discharged? Hospital course, mention meds given and route, prescriptions, significant lab abnormalities, going to OR and other pertinent info. @ -32-year-old male presenting for evaluation of lightheadedness and tachycardia. History of sinus tachycardia he follows with cardiology and is on a beta julius but uncertain which one. He pleases metoprolol but the medical record indicates propanolol. Patient states he's been compliant with his medication. He's here predominantly for the lightheadedness. Workup reveals normal CBC, CMP showing a transaminitis without any abdominal pain or tenderness, no vomiting. Negative troponin, and normal TSH, negative d-dimer. After fluids as well as metoprolol his heart rate does improve. He states this is baseline for him and his lightheadedness is resolved. He is eager for discharge. 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 Undiagnosed new problem with uncertain prognosis? @ -[No] Drug Therapy requiring intensive monitoring for toxicity (Heparin, Nitro, Insulin, Cardizem)? @ -[No] Were any procedures done? @ -[No] Diagnosis/symptom? @ -Sinus tachycardia Acute, or Chronic, or Acute on Chronic? @ -Acute on chronic Uncomplicated (without systemic symptoms) or Complicated (systemic symptoms)? @ -Complicated Side effects of treatment? @ -[No] Exacerbation, Progression, or Severe Exacerbation? @ -[No] Poses a threat to life or bodily function? How? (Chest pain, [place], [place], pneumonia, PE, COPD, DKA, ARF, appy, cholecystitis, CVA, Diverticulitis, Homicidal, Suicidal, threat to staff... and all critical care pts) @ -yes, progression to arrhythmia, cardiomyopathy. - Lab Data Result diagrams: 08/07/22 23:53 08/07/22 23:53 Lab Results 08/07/22 08/07/22 08/07/22 Range/Units 23:53 23:53 23:53 WBC 6.4 (3.8-10.6) k/uL RBC 5.12 (4.30-5.90) m/uL Hgb 14.9 (13.0-17.5) gm/dL Hct 44.6 (39.0-53.0) % MCV 87.0 (80.0-100.0) fL MCH 29.1 (25.0-35.0) pg MCHC 33.5 (31.0-37.0) g/dL RDW 13.2 (11.5-15.5) % Plt Count 221 (150-450) k/uL MPV 8.4 Neutrophils % 75 % Lymphocytes % 13 % Monocytes % 8 % Eosinophils % 1 % Basophils % 0 % Neutrophils # 4.8 (1.3-7.7) k/uL Lymphocytes # 0.9 L (1.0-4.8) k/uL Monocytes # 0.5 (0-1.0) k/uL Eosinophils # 0.1 (0-0.7) k/uL Basophils # 0.0 (0-0.2) k/uL PT 10.8 (9.0-12.0) sec INR 1.0 (<1.2) APTT 24.6 (22.0-30.0) sec D-Dimer 0.47 (<0.60) mg/L FEU Sodium 140 (137-145) mmol/L Potassium 4.1 (3.5-5.1) mmol/L Chloride 109 H (98-107) mmol/L Carbon Dioxide 20 L (22-30) mmol/L Anion Gap 11 mmol/L BUN 4 L (9-20) mg/dL Creatinine 0.96 (0.66-1.25) mg/dL Est GFR (CKD-EPI)AfAm >90 (>60 ml/min/1.73 sqM) Est GFR (CKD-EPI)NonAf >90 (>60 ml/min/1.73 sqM) Glucose 193 H (74-99) mg/dL Calcium 8.7 (8.4-10.2) mg/dL Magnesium 1.4 L (1.6-2.3) mg/dL Total Bilirubin 0.2 (0.2-1.3) mg/dL AST 134 H (17-59) U/L ALT 162 H (4-49) U/L Alkaline Phosphatase 76 (38-126) U/L Troponin I (0.000-0.034) ng/mL Total Protein 6.9 (6.3-8.2) g/dL Albumin 4.1 (3.5-5.0) g/dL TSH 1.030 (0.465-4.680) mIU/L 08/07/22 Range/Units 23:53 WBC (3.8-10.6) k/uL RBC (4.30-5.90) m/uL Hgb (13.0-17.5) gm/dL Hct (39.0-53.0) % MCV (80.0-100.0) fL MCH (25.0-35.0) pg MCHC (31.0-37.0) g/dL RDW (11.5-15.5) % Plt Count (150-450) k/uL MPV Neutrophils % % Lymphocytes % % Monocytes % % Eosinophils % % Basophils % % Neutrophils # (1.3-7.7) k/uL Lymphocytes # (1.0-4.8) k/uL Monocytes # (0-1.0) k/uL Eosinophils # (0-0.7) k/uL Basophils # (0-0.2) k/uL PT (9.0-12.0) sec INR (<1.2) APTT (22.0-30.0) sec D-Dimer (<0.60) mg/L FEU Sodium (137-145) mmol/L Potassium (3.5-5.1) mmol/L Chloride (98-107) mmol/L Carbon Dioxide (22-30) mmol/L Anion Gap mmol/L BUN (9-20) mg/dL Creatinine (0.66-1.25) mg/dL Est GFR (CKD-EPI)AfAm (>60 ml/min/1.73 sqM) Est GFR (CKD-EPI)NonAf (>60 ml/min/1.73 sqM) Glucose (74-99) mg/dL Calcium (8.4-10.2) mg/dL Magnesium (1.6-2.3) mg/dL Total Bilirubin (0.2-1.3) mg/dL AST (17-59) U/L ALT (4-49) U/L Alkaline Phosphatase (38-126) U/L Troponin I <0.012 (0.000-0.034) ng/mL Total Protein (6.3-8.2) g/dL Albumin (3.5-5.0) g/dL TSH (0.465-4.680) mIU/L Disposition Clinical Impression: Sinus tachycardia Disposition: HOME SELF-CARE Condition: Fair Instructions (If sedation given, give patient instructions): Tachycardia (ED) Additional Instructions: Please follow-up with Dr. Clark, please return to emergency department with worsening or changing symptoms Is patient prescribed a controlled substance at d/c from ED?: No Referrals: None,Stated [Primary Care Provider] - 1-2 days Yen Clark MD [STAFF PHYSICIAN] - 1-2 days Time of Disposition: 02:46
[2022-08-08 00:28] LABS: Basophils % (A) 0 %; Eosinophils # (A) 0.1 k/uL (0-0.7); Eosinophils % (A) 1 %; HCT 44.6 % (39.0-53.0); HGB 14.9 gm/dL (13.0-17.5); Lymphocytes # (A) 0.9 k/uL (1.0-4.8); Lymphocytes % (A) 13 %; MCH 29.1 pg (25.0-35.0); MCHC 33.5 g/dL (31.0-37.0); Mean Platelet Volume 8.4; Monocytes # (A) 0.5 k/uL (0-1.0); Monocytes % (A) 8 %; Neutrophils # (A) 4.8 k/uL (1.3-7.7); Neutrophils % (A) 75 %; Platelet Count 221 k/uL (150-450); RBC 5.12 m/uL (4.30-5.90); RDW 13.2 % (11.5-15.5); WBC 6.4 k/uL (3.8-10.6)
[2022-08-08 00:38] LABS: Partial Thromboplastin Time 24.6 sec (22.0-30.0); Prothrombin Time 10.8 sec (9.0-12.0)
[2022-08-08 00:45] LABS: ALT 162 U/L (4-49); AST 134 U/L (17-59); African American GFR (CKD) >90 (>60 ml/min/1.73 sqM); Albumin 4.1 g/dL (3.5-5.0); Alkaline Phosphatase 76 U/L (38-126); Anion Gap 11 mmol/L; Blood Urea Nitrogen 4 mg/dL (9-20); Calcium 8.7 mg/dL (8.4-10.2); Carbon Dioxide 20 mmol/L (22-30); Chloride 109 mmol/L (98-107); Glucose 193 mg/dL (74-99); Magnesium 1.4 mg/dL (1.6-2.3); Non-African American GFR(CKD) >90 (>60 ml/min/1.73 sqM); Potassium 4.1 mmol/L (3.5-5.1); Sodium 140 mmol/L (137-145); Total Bilirubin 0.2 mg/dL (0.2-1.3); Total Protein 6.9 g/dL (6.3-8.2)
--- NOTE | 2022-08-08 00:59 | XR ---
EXAMINATION TYPE: XR chest 2V DATE OF EXAM: 08/08/2022 COMPARISON: 05/30/2022 HISTORY: Dysrhythmia TECHNIQUE: 2 views FINDINGS: Heart and mediastinum are normal. Lungs are clear. Diaphragm is normal. Bony thorax is inta ct. IMPRESSION: Normal chest. No change.
[2022-08-08] MEDS ORDERED: LORazepam 2 MG/ML INJ IV STA (01:01)
[2022-08-08] MEDS ORDERED: MAGNESIUM SULFATE-D5W PMX 1 GM in DEXTROSE/WATER 1 100ML.BAG IVPB ONE (01:18)
[2022-08-08] MEDS ORDERED: SODIUM CHLORIDE 0.9% 500 ML 500 ML IV ONE (01:47)
[2022-08-08] MEDS: METOPROLOL TARTRATE 5 MG/5 ML VIAL IVP SCH ×2 (01:55→02:05)
[2022-08-08 02:00] VITALS: RESP 16
[2022-08-08 02:11] VITALS: BP 138/68; PULSE 118
== END 2022-08-08 02:53 | disposition home or self-care (01) ==
LOC: EC 23:50
DX: R00.0 Tachycardia, unspecified (principal); I10 Essential (primary) hypertension; F41.9 Anxiety disorder, unspecified; F32.A Depression, unspecified; F17.290 Nicotine dependence, other tobacco product, uncomplicated; Z79.899 Other long term (current) drug therapy
CPT/HCPCS: 36415; 93005; 85379; 80053; 84443; 83735; 84484; 85025; 85610; 85730; 71046; 99285; 96365; 96366; 96375 ×2; 96361; J2060; J3475

== ENCOUNTER 2022-09-28 17:46 | Emergency (ER) | payer OTHER ==
[2022-09-28 17:56] VITALS: BP 136/82; PULSE 91; RESP 18; TEMP 98.5
[2022-09-28] MEDS ORDERED: hydrOXYzine pamoate 25 MG CAP PO STA (18:37)
--- NOTE | 2022-09-28 18:41 | ED ---
Psych HPI - General Chief Complaint: Psychiatric Symptoms Stated Complaint: mental health Time Seen by Provider: 09/28/22 18:07 Source: patient Mode of arrival: ambulatory - History of Present Illness Initial Comments: This patient is a 32-year-old man who presents with chief complaint that he is having anxiety. The patient also complaining of some auditory hallucinations but states those been going on for about 6 years. The patient states he gets his care through [facility], and that they do given medication but doesn't seem to be helping with hallucinations. Patient denies suicidal ideation. MD Complaint: other Onset/Timin -: days(s) Associated Psychiatric Symptoms: racing thoughts, auditory hallucinations History of same: Yes Quality: constant Improves With: none Worsens With: none Associated Symptoms: denies other symptoms - Related Data Home Medications Medication Instructions Recorded Confirmed Docusate Sodium [Dok] 100 mg PO BID PRN 02/27/22 09/28/22 Paliperidone IM [Invega Sustenna] 234 mg IM Q28D 04/18/22 09/28/22 Testosterone Cypionate 100 mg IM Q14D 04/18/22 09/28/22 [Depo-Testosterone] Gabapentin [Neurontin] 100 mg PO BID@0800,2100 09/28/22 09/28/22 Nicotine 14Mg/24Hr Patch [Habitrol] 1 patch TRANSDERM DAILY PRN 09/28/22 09/28/22 Sertraline [Zoloft] 50 mg PO DAILY 09/28/22 09/28/22 Venlafaxine HCl [Effexor] 37.5 mg PO DAILY 09/28/22 09/28/22 haloperidoL [Haldol] 5 mg PO BID 09/28/22 09/28/22 rOPINIRole HCL [Requip] 0.5 mg PO HS 09/28/22 09/28/22 Previous Rx's Medication Instructions Recorded Mirtazapine [Remeron] 15 mg PO HS 30 Days #30 tab 06/05/22 Propranolol LA [Inderal LA] 80 mg PO DAILY 30 Days #30 cap 06/05/22 Allergies Allergy/AdvReac Type Severity Reaction Status Date / Time No Known Allergies Allergy Verified 09/28/22 17:56 Review of Systems ROS Statement: Those systems with pertinent positive or pertinent negative responses have been documented in the HPI. ROS Other: All systems not noted in ROS Statement are negative. Constitutional: Denies: fever, chills Respiratory: Denies: cough, dyspnea Cardiovascular: Denies: chest pain, palpitations Gastrointestinal: Denies: abdominal pain, vomiting, diarrhea Skin: Denies: rash Neurological: Denies: headache, weakness Psychiatric: Reports: anxiety, auditory hallucinations. Denies: depression, homicidal thoughts, suicidal thoughts Past Medical History Past Medical History: Hypertension Additional Past Medical History / Comment(s): Severe anxiety, migraines, chronic back pain, difficulty with focusing attention. History of Any Multi-Drug Resistant Organisms: None Reported Past Surgical History: Orthopedic Surgery Additional Past Surgical History / Comment(s): Left wrist open reduction internal fixation, lipoma removed from right posterior shoulder. Past Anesthesia/Blood Transfusion Reactions: No Reported Reaction Past Psychological History: ADD/ADHD, Anxiety, Depression, Schizophrenia Smoking Status: Vaper Past Alcohol Use History: None Reported Past Drug Use History: None Reported - Past Family History Father Family Medical History: Cancer, CVA/TIA, Myocardial Infarction ([place]) Additional Family Medical History / Comment(s): Father is alive at age 58. Patient states he has a rare cancer and undergoing chemotherapy. Mother Family Medical History: Coronary Artery Disease (CAD), Hypertension, Syncope Additional Family Medical History / Comment(s): Mother is alive at age 54 and also has history of anxiety and depression. Sister(s) History Unknown: Yes Family Medical History: Hyperlipidemia General Exam General appearance: alert, in no apparent distress Head exam: Present: atraumatic, normocephalic Eye exam: Present: normal appearance Respiratory exam: Present: normal lung sounds bilaterally. Absent: respiratory distress, wheezes, rales, rhonchi, stridor Cardiovascular Exam: Present: regular rate, normal rhythm, normal heart sounds. Absent: systolic murmur, diastolic murmur, rubs, gallop GI/Abdominal exam: Present: soft. Absent: distended, tenderness, guarding, rebound, rigid, mass Extremities exam: Present: normal inspection, normal capillary refill. Absent: pedal edema, calf tenderness Back exam: Present: normal inspection. Absent: CVA tenderness (R), CVA tenderness (L) Neurological exam: Present: alert, normal gait Psychiatric exam: Absent: agitated, flat affect, manic, homicidal ideation, suicidal ideation Skin exam: Present: warm, dry, intact, normal color. Absent: rash Course Vital Signs 09/28/22 17:50 Temperature 98.5 F Pulse Rate 91 Respiratory 18 Rate Blood Pressure 136/82 O2 Sat by Pulse 96 Oximetry Medical Decision Making - Medical Decision Making Was pt. sent in by a medical professional or institution (, RICKEY, MILK TREATER, urgent care, hospital, or correction...) When possible be specific @ -[No] Did you speak to anyone other than the patient for history (EMS, parent, family, police, friend...)? What history was obtained from this source @ -[No] Did you review nursing and triage notes (agree or disagree)? Why? @ -[I reviewed and agree with nursing and triage notes] Were old charts reviewed (outside hosp., previous admission, EMS record, old EKG, old radiological studies, urgent care reports/EKG's, correction records)? Report findings @ -[No old charts were reviewed] Differential Diagnosis (chest pain, altered mental status, abdominal pain women, abdominal pain men, vaginal bleeding, weakness, fever, dyspnea, syncope, headache, dizziness, GI bleed, back pain, seizure, CVA, palpatations, mental health, musculoskeletal)? @ -[Differential Mental Health Depression, anxiety, bipolar, psychosis, schizophrenia, borderline personality, situational depression, adjustment disorder, behavioral disorder, brain tumor, malingering, substance abuse, encephalopathy, medication reaction, dementia, hypothyroidism, degenerative neurologic disorder, lupus.... This is not meant to be all-inclusive list EKG interpreted by me (3pts min.). @ -[ X-rays interpreted by me (1pt min.). @ -[None done] CT interpreted by me (1pt min.). @ -[None done] U/S interpreted by me (1pt. min.). @ -[None done] What testing was considered but not performed or refused? (CT, X-rays, U/S, labs)? Why? @ -[None] What meds were considered but not given or refused? Why? @ -[None] Did you discuss the management of the patient with other professionals (professionals i.e. , RICKEY, MILK TREATER, lab, RT, psych nurse, social staff worker, audit clerks supervisor, teacher, risk control officer, family caseworker)? Give summary @ -[Case discussed with EPS personnel Was smoking cessation discussed for >3mins.? @ -[No] Was critical care preformed (if so, how long)? @ -[No] Were there social determinants of health that impacted care today? How? (Homelessness, low income, unemployed, alcoholism, drug addiction, transportation, low edu. Level, literacy, decrease access to med. care, nursing home, rehab)? @ -[No] Was there de-escalation of care discussed even if they declined (Discuss DNR or withdrawal of care, Hospice)? DNR status @ -[No] What co-morbidities impacted this encounter? (DM, HTN, Smoking, COPD, CAD, Cancer, CVA, ARF, Chemo, Hep., AIDS, mental health diagnosis, sleep apnea, mo rbid obesity)? @ -[None] Was patient admitted / discharged? Hospital course, mention meds given and route, prescriptions, significant lab abnormalities, going to OR and other pertinent info. @ -[Discharged Undiagnosed new problem with uncertain prognosis? @ -[No] Drug Therapy requiring intensive monitoring for toxicity (Heparin, Nitro, Insulin, Cardizem)? @ -[No] Were any procedures done? @ -[No] Diagnosis/symptom? @ -[Acute anxiety, uncomplicated Acute, or Chronic, or Acute on Chronic? @ -[default] Uncomplicated (without systemic symptoms) or Complicated (systemic symptoms)? @ -[default] Side effects of treatment? @ -[No] Exacerbation, Progression, or Severe Exacerbation? @ -[No] Poses a threat to life or bodily function? How? (Chest pain, [place], [place], pneumonia, PE, COPD, DKA, ARF, appy, cholecystitis, CVA, Diverticulitis, Homicidal, Suicidal, threat to staff... and all critical care pts) @ -[No] Disposition Clinical Impression: Anxiety Disposition: HOME SELF-CARE Condition: Good Instructions (If sedation given, give patient instructions): Anxiety (ED) Is patient prescribed a controlled substance at d/c from ED?: No Referrals: Becky Cristobal MD [Primary Care Provider] - 1-2 days
[2022-09-28] MEDS ORDERED: diphenhydrAMINE 50 MG/ML 1 ML VIAL IM STA (19:09)
== END 2022-09-28 22:23 | disposition home or self-care (01) ==
LOC: EC 17:46
DX: F41.9 Anxiety disorder, unspecified (principal); I10 Essential (primary) hypertension; F32.A Depression, unspecified; F17.290 Nicotine dependence, other tobacco product, uncomplicated; Z79.899 Other long term (current) drug therapy
CPT/HCPCS: 82075; 99284; 96372; J1200

== ENCOUNTER 2023-10-11 06:00 | Observation (INO) | payer OTHER ==
--- NOTE | 2023-10-11 06:20 | ED ---
Arrhythmia/Palpitations HPI - General Chief Complaint: Arrhythmia/Palpitations Stated Complaint: Speech problems, body twitching Time Seen by Provider: 10/11/23 06:08 Source: patient, RN notes reviewed Mode of arrival: ambulatory Limitations: no limitations - History of Present Illness Initial Comments: This is a 33-year-old male who presents to the emergency department for palpitations. States that about 2 hours prior to arrival he was smoking a ciga rette and felt like he started to develop problems with his speech. He then started to feel like his whole body was pulsating and his heart was beating very fast. Denies any chest pain or shortness of breath associated with this. Denies any history of similar problems in the past. He does note cramping in his bilateral lower extremities. MD Complaint: rapid heart beat, "heart racing" - Related Data Home Medications Medication Instructions Recorded Confirmed Testosterone Cypionate 150 mg IM Q14D 04/18/22 10/11/23 [Depo-Testosterone] ALPRAZolam [Xanax] 1.5 mg PO BID PRN 10/11/23 10/11/23 ARIPiprazole [Abilify] 5 mg PO DAILY 10/11/23 10/11/23 Cholecalciferol [Vitamin D3 (25 50 mcg PO DAILY 10/11/23 10/11/23 Mcg = 1000 Iu)] Cyclobenzaprine [Flexeril] 10 mg PO TID 10/11/23 10/11/23 Dextroamphetamine/Amphetamine 20 mg PO DAILY 10/11/23 10/11/23 [Adderall Xr 20 mg Capsule] Gabapentin [Neurontin] 600 mg PO TID 10/11/23 10/11/23 Metoprolol Succinate (ER) [Toprol 75 mg PO DAILY 10/11/23 10/11/23 Xl] Sertraline [Zoloft] 100 mg PO DAILY 10/11/23 10/11/23 Allergies Allergy/AdvReac Type Severity Reaction Status Date / Time No Known Allergies Allergy Verified 10/11/23 09:32 Review of Systems ROS Statement: Those systems with pertinent positive or pertinent negative responses have been documented in the HPI. ROS Other: All systems not noted in ROS Statement are negative. Past Medical History Past Medical History: Hypertension Additional Past Medical History / Comment(s): Severe anxiety, migraines, chronic back pain, difficulty with focusing attention. COVID 01/20/23, History of Any Multi-Drug Resistant Organisms: None Reported Past Surgical History: Orthopedic Surgery Additional Past Surgical History / Comment(s): Left wrist open reduction in ternal fixation, lipoma removed from right posterior shoulder. Past Anesthesia/Blood Transfusion Reactions: No Reported Reaction Past Psychological History: ADD/ADHD, Anxiety, Depression, Schizophrenia Smoking Status: Vaper Past Alcohol Use History: None Reported Past Drug Use History: None Reported - Past Family History Father Family Medical History: Cancer, CVA/TIA, Myocardial Infarction ([place]) Additional Family Medical History / Comment(s): Father is alive at age 58. Patient states he has a rare cancer and undergoing chemotherapy. Mother Family Medical History: Coronary Artery Disease (CAD), Hypertension, Syncope Additional Family Medical History / Comment(s): Mother is alive at age 54 and also has history of anxiety and depression. Sister(s) History Unknown: Yes Family Medical History: Hyperlipidemia General Exam Limitations: no limitations General appearance: alert, in no apparent distress Head exam: Present: atraumatic, normocephalic, normal inspection Respiratory exam: Present: normal lung sounds bilaterally. Absent: respiratory distress, wheezes, rales, rhonchi, stridor Cardiovascular Exam: Present: normal rhythm, tachycardia GI/Abdominal exam: Present: soft, normal bowel sounds. Absent: distended, tenderness, guarding, rebound, rigid Neurological exam: Present: alert, oriented X3, CN II-XII intact Psychiatric exam: Present: normal affect, normal mood Skin exam: Present: warm, dry, intact, normal color. Absent: rash Course Vital Signs 10/11/23 10/11/23 10/11/23 06:02 06:30 06:39 Temperature 98.2 F Pulse Rate 169 H 131 H 112 H Respiratory 18 18 Rate Blood Pressure 119/79 108/64 O2 Sat by Pulse 98 97 Oximetry 10/11/23 10/11/23 07:47 08:24 Temperature Pulse Rate 115 H 89 Respiratory 18 18 Rate Blood Pressure 106/61 108/74 O2 Sat by Pulse 95 98 Oximetry Medical Decision Making - Medical Decision Making This is a 33 year old male who presents to the emergency department for palpitations. Was pt. sent in by a medical professional or institution? @ -No Did you speak to anyone other than the patient for history? @ -No Did you review nursing and triage notes? @ -Yes, and I agree, it is accurate with regards to the patient's symptoms. Were old charts reviewed? @ -No Differential Diagnosis? @ -Differential Palpitations: Ventricular arrhythmias, atrial arrhythmias, myocardial infarction, anemia, thyrotoxicosis, electrolyte imbalance, hypokalemia, pulmonary embolism, pulmonary disease, drugs, alcohol, anxiety, stress.... This is not meant to be an all-inclusive list. EKG interpreted by me (3pts min.)? @ -EKG interpreted by me demonstrating the following: Sinus tachycardia. Ventr icular rate 145 bpm, DE interval 121 ms, QRS duration 90 ms, QTc 382 ms. X-rays interpreted by me (1pt min.)? @ -Chest x-ray obtained, my interpretation identifies no localized consolidations or infiltrates. CT interpreted by me (1pt min.)? @ -CT scan of the brain obtained. My interpretation identifies no evidence of an acute intracranial hemorrhage. U/S interpreted by me (1pt. min.)? @ -Not obtained What testing was considered but not performed? (CT, X-rays, U/S, labs)? Why? @ -None What meds were considered but not given? Why? @ -None Did you discuss the management of the patient with other professionals? @ -Yes, Katy Lucio with [facility], who accepts the patient for admission. Did you reconcile home meds? @ -Yes Was smoking cessation discussed for >3mins.? @ -I discussed smoking cessation for greater than 3 minutes. The risk of smoking were discussed with the patient including but not limited to risks of cancer, stroke, coronary artery disease and COPD. Also discussed with patient were multiple methods of quitting smoking. Lastly we discussed the financial cost of smoking. Was critical care preformed (if so, how long)? @ -No Were there social determinants of health that impacted care today? How? (Homelessness, low income, unemployed, alcoholism, drug addiction, transportation, low edu. Level, literacy, decrease access to med. care, care home, rehab)? @ -No Was there de-escalation of care discussed even if they declined? (Discuss DNR or withdrawal of care, Hospice)? @ -No What co-morbidities impacted this encounter? (DM, HTN, Smoking, COPD, CAD, Cancer, CVA, Hep., AIDS, mental health diagnosis, sleep apnea, morbid obesity)? @ -Smoking, HTN, schizophrenia Was patient admitted / discharged? @ -Admitted. When the patient was initially triaged, he was fairly tachycardic with a heart rate of approximately 169 bpm. After he was brought back to the examination room, he remained tachycardic with a heart rate in the 150s. Patient evaluated by ED attending, Dr. Roblero. He did appear to have some garbled speech, however ED attending did not believe that a code stroke was necessary. 2L bolus of IV fluids administered and his heart improved to the range of 110-120 BPM. Lab work unremarkable. D-dimer and troponin negative. Chest x-ray reveals no acute process. Given the patient's speech changes with feelings of dizziness, CT scan of the brain was obtained. This revealed no acute process. On reevaluation of the patient, his heart rate was approximately 90 to 100 bpm at rest. However when the patient would sit up he would imm ediately jump up to approximately 130 bpm. Given the level of tachycardia when the patient arrived and the persistence of his symptoms, particularly with position changes, he was admitted to medicine for observation and cardiac monitoring. Consult placed for cardiology. Undiagnosed new problem with uncertain prognosis? @ -None Drug Therapy requiring intensive monitoring for toxicity (Heparin, Nitro, Insulin, Cardizem)? @ -None Were any procedures done? @ -None Diagnosis/symptom? @ -Tachycardia Acute, or Chronic, or Acute on Chronic? @ -Acute Uncomplicated (without systemic symptoms) or Complicated (systemic symptoms)? @ -Uncomplicated Side effects of treatment? @ -None Exacerbation, Progression, or Severe Exacerbation] @ -Not applicable Poses a threat to life or bodily function? @ -Yes This case was discussed in detail with the attending ED physician, Dr. Pang. Presentation, findings, and treatment plan discussed in detail as well. - Lab Data Result diagrams: 10/11/23 07:24 10/11/23 06:20 Lab Results 10/11/23 10/11/23 10/11/23 Range/Units 06:20 06:20 06:20 WBC (3.8-10.6) k/uL RBC (4.30-5.90) m/uL Hgb (13.0-17.5) gm/dL Hct (39.0-53.0) % MCV (80.0-100.0) fL MCH (25.0-35.0) pg MCHC (31.0-37.0) g/dL RDW (11.5-15.5) % Plt Count (150-450) k/uL MPV Neutrophils % % Lymphocytes % % Monocytes % % Eosinophils % % Basophils % % Neutrophils # (1.3-7.7) k/uL Lymphocytes # (1.0-4.8) k/uL Monocytes # (0-1.0) k/uL Eosinophils # (0-0.7) k/uL Basophils # (0-0.2) k/uL PT 10.3 (10.0-12.5) sec INR 0.9 (<1.2) APTT 26.0 (22.0-30.0) sec D-Dimer 0.28 (<0.60) mg/L FEU Sodium 138 (137-145) mmol/L Potassium 3.6 (3.5-5.1) mmol/L Chloride 109 H (98-107) mmol/L Carbon Dioxide 19 L (22-30) mmol/L Anion Gap 10 mmol/L BUN 16 (9-20) mg/dL Creatinine 0.79 (0.66-1.25) mg/dL Est GFR (CKD-EPI)AfAm >90 (>60 ml/min/1.73 sqM) Est GFR (CKD-EPI)NonAf >90 (>60 ml/min/1.73 sqM) Glucose 131 H (74-99) mg/dL Calcium 9.1 (8.4-10.2) mg/dL Magnesium 2.1 (1.6-2.3) mg/dL Total Bilirubin 0.6 (0.2-1.3) mg/dL AST 32 (17-59) U/L ALT 24 (4-49) U/L Alkaline Phosphatase 88 (38-126) U/L Troponin I <0.012 (0.000-0.034) ng/mL Total Protein 7.2 (6.3-8.2) g/dL Albumin 4.5 (3.5-5.0) g/dL TSH 2.360 (0.465-4.680) mIU/L Urine Color Urine Appearance (Clear) Urine pH (5.0-8.0) Ur Specific [place] (1.001-1.035) Urine Protein (Negative) Urine Glucose (UA) (Negative) Urine Ketones (Negative) Urine Blood (Negative) Urine Nitrite (Negative) Urine Bilirubin (Negative) Urine Urobilinogen (<2.0) mg/dL Ur Leukocyte Esterase (Negative) Urine Opiates Screen (NotDetected) Ur Oxycodone Screen (NotDetected) Urine Methadone Screen (NotDetected) Ur Barbiturates Screen (NotDetected) U Tricyclic Antidepress (NotDetected) Ur Phencyclidine Scrn (NotDetected) Ur Amphetamines Screen (NotDetected) U Methamphetamines Scrn (NotDetected) U Benzodiazepines Scrn (NotDetected) Urine Cocaine Screen (NotDetected) U Marijuana (THC) Screen (NotDetected) Serum Alcohol <10 mg/dL 10/11/23 10/11/23 Range/Units 06:20 07:24 WBC 7.1 (3.8-10.6) k/uL RBC 4.25 L (4.30-5.90) m/uL Hgb 12.2 L (13.0-17.5) gm/dL Hct 37.6 L (39.0-53.0) % MCV 88.5 (80.0-100.0) fL MCH 28.7 (25.0-35.0) pg MCHC 32.5 (31.0-37.0) g/dL RDW 13.5 (11.5-15.5) % Plt Count 213 (150-450) k/uL MPV 8.2 Neutrophils % 71 % Lymphocytes % 17 % Monocytes % 8 % Eosinophils % 2 % Basophils % 0 % Neutrophils # 5.1 (1.3-7.7) k/uL Lymphocytes # 1.2 (1.0-4.8) k/uL Monocytes # 0.6 (0-1.0) k/uL Eosinophils # 0.2 (0-0.7) k/uL Basophils # 0.0 (0-0.2) k/uL PT (10.0-12.5) sec INR (<1.2) APTT (22.0-30.0) sec D-Dimer (<0.60) mg/L FEU Sodium (137-145) mmol/L Potassium (3.5-5.1) mmol/L Chloride (98-107) mmol/L Carbon Dioxide (22-30) mmol/L Anion Gap mmol/L BUN (9-20) mg/dL Creatinine (0.66-1.25) mg/dL Est GFR (CKD-EPI)AfAm (>60 ml/min/1.73 sqM) Est GFR (CKD-EPI)NonAf (>60 ml/min/1.73 sqM) Glucose (74-99) mg/dL Calcium (8.4-10.2) mg/dL Magnesium (1.6-2.3) mg/dL Total Bilirubin (0.2-1.3) mg/dL AST (17-59) U/L ALT (4-49) U/L Alkaline Phosphatase (38-126) U/L Troponin I (0.000-0.034) ng/mL Total Protein (6.3-8.2) g/dL Albumin (3.5-5.0) g/dL TSH (0.465-4.680) mIU/L Urine Color Colorless Urine Appearance Clear (Clear) Urine pH 6.0 (5.0-8.0) Ur Specific [place] 1.009 (1.001-1.035) Urine Protein Trace H (Negative) Urine Glucose (UA) Negative (Negative) Urine Ketones Negative (Negative) Urine Blood Negative (Negative) Urine Nitrite Negative (Negative) Urine Bilirubin Negative (Negative) Urine Urobilinogen <2.0 (<2.0) mg/dL Ur Leukocyte Esterase Negative (Negative) Urine Opiates Screen Not Detected (NotDetected) Ur Oxycodone Screen Not Detected (NotDetected) Urine Methadone Screen Not Detected (NotDetected) Ur Barbiturates Screen Not Detected (NotDetected) U Tricyclic Antidepress Detected H (NotDetected) Ur Phencyclidine Scrn Not Detected (NotDetected) Ur Amphetamines Screen Not Detected (NotDetected) U Methamphetamines Scrn Not Detected (NotDetected) U Benzodiazepines Scrn Not Detected (NotDetected) Urine Cocaine Screen Not Detected (NotDetected) U Marijuana (THC) Screen Not Detected (NotDetected) Serum Alcohol mg/dL - Radiology Data Radiology results: report reviewed, image reviewed Disposition Clinical Impression: Nicotine dependence, Tachycardia Disposition: ADMITTED IP TO THIS HOSP Time of Disposition: 09:08
[2023-10-11] MEDS: SODIUM CHLORIDE 0.9% 2,000 ML IV STA (06:28)
[2023-10-11 06:36] LABS: Appearance,Urine Clear (Clear); Bilirubin,Urine Negative (Negative); Blood,Urine Negative (Negative); Color,Urine Colorless; Glucose,Urine (UA) Negative (Negative); Ketones,Urine Negative (Negative); Leukocyte Esterase,Urine Negative (Negative); Nitrite,Urine Negative (Negative); Protein,Urine Trace (Negative); Specific Gravity,Urine 1.009 (1.001-1.035); Urobilinogen,Urine <2.0 mg/dL (<2.0)
[2023-10-11 06:47] LABS: ALT 24 U/L (4-49); AST 32 U/L (17-59); African American GFR (CKD) >90 (>60 ml/min/1.73 sqM); Albumin 4.5 g/dL (3.5-5.0); Alcohol <10 mg/dL; Alkaline Phosphatase 88 U/L (38-126); Anion Gap 10 mmol/L; Blood Urea Nitrogen 16 mg/dL (9-20); Calcium 9.1 mg/dL (8.4-10.2); Carbon Dioxide 19 mmol/L (22-30); Chloride 109 mmol/L (98-107); Glucose 131 mg/dL (74-99); Magnesium 2.1 mg/dL (1.6-2.3); Non-African American GFR(CKD) >90 (>60 ml/min/1.73 sqM); Potassium 3.6 mmol/L (3.5-5.1); Sodium 138 mmol/L (137-145); Total Bilirubin 0.6 mg/dL (0.2-1.3); Total Protein 7.2 g/dL (6.3-8.2)
[2023-10-11 06:49] LABS: INR 0.9 (<1.2); Prothrombin Time 10.3 sec (10.0-12.5)
[2023-10-11 07:13] LABS: Amphetamine Screen,Urine Not Detected (NotDetected); Barbiturate Screen,Urine Not Detected (NotDetected); Benzodiazepines Screen,Urine Not Detected (NotDetected); Cocaine Screen,Urine Not Detected (NotDetected); Methadone Screen, Urine Not Detected (NotDetected); Opiate Screen,Urine Not Detected (NotDetected); Oxycodone Screen, Urine Not Detected (NotDetected); Phencyclidine Screen,Urine Not Detected (NotDetected); Tricyclic Antidepressant,Urine Detected (NotDetected); Urn Cannabinoid Scrn Not Detected (NotDetected)
[2023-10-11 07:39] LABS: Basophils % (A) 0 %; Eosinophils # (A) 0.2 k/uL (0-0.7); Eosinophils % (A) 2 %; HCT 37.6 % (39.0-53.0); HGB 12.2 gm/dL (13.0-17.5); Lymphocytes # (A) 1.2 k/uL (1.0-4.8); Lymphocytes % (A) 17 %; MCH 28.7 pg (25.0-35.0); MCHC 32.5 g/dL (31.0-37.0); MCV 88.5 fL (80.0-100.0); Mean Platelet Volume 8.2; Monocytes # (A) 0.6 k/uL (0-1.0); Monocytes % (A) 8 %; Neutrophils # (A) 5.1 k/uL (1.3-7.7); Neutrophils % (A) 71 %; Platelet Count 213 k/uL (150-450); RBC 4.25 m/uL (4.30-5.90); RDW 13.5 % (11.5-15.5); WBC 7.1 k/uL (3.8-10.6)
--- NOTE | 2023-10-11 07:44 | XR ---
EXAMINATION TYPE: XR chest 2V DATE OF EXAM: 10/11/2023 COMPARISON: 08/08/2022 HISTORY: 33-year-old male dysrhythmia TECHNIQUE: PA and lateral views FINDINGS: Heart normal size. Aorta and pulmonary vasculature within normal limits. Some strandy atelectasis in the lower lungs without consolidation or pleural effusion. Slight accentuated lower thoracic kyphosis . IMPRESSION: No acute process seen.
[2023-10-11] MEDS: LORazepam 2 MG/ML INJ IV STA (08:21)
[2023-10-11] MEDS: MECLIZINE 12.5 MG TAB PO STA (08:21)
--- NOTE | 2023-10-11 09:02 | CT ---
EXAMINATION TYPE: CT brain wo con DATE OF EXAM: 10/11/2023 COMPARISON: 04/18/2022 HISTORY: dizziness/slurred speech CT DLP: 1184 mGycm. Automated Exposure Control for Dose Reduction was Utilized. TECHNIQUE: CT scan of the head is performed without contrast. FINDINGS: There is no acute intracranial hemorrhage, mass effect, or midline shift identified. The ventricles and sulci are within normal limits in size. Changes of chronic sinusitis. Orbits are symm etric.. IMPRESSION: No acute intracranial hemorrhage, mass effect, or midline shift is seen. If clinically w arranted correlate
[2023-10-11] MEDS ORDERED: ONDANSETRON 4 MG/2 ML VIAL IVP PRN (09:09)
[2023-10-11] MEDS ORDERED: NALOXONE 0.4 MG/ML 1 ML VIAL IV PRN (09:09)
[2023-10-11] MEDS ORDERED: ACETAMINOPHEN TAB 325 MG TAB PO PRN (09:09)
[2023-10-11] MEDS ORDERED: TESTOSTERONE CYPIONATE 200 MG/ML 1ML VIAL IM SCH (09:45)
[2023-10-11] MEDS: SODIUM CHLORIDE 0.9% 1,000 ML IV SCH (10:00)
--- NOTE | 2023-10-11 14:31 | P.CRDCN ---
History of Present Illness Consult date: 10/11/23 Reason for Consult (text): Tachycardia History of present illness: History of present illness: This is a 33-year-old male patient of Dr. DASIA Clark with past medical history of tachycardia, palpitations, obesity, psychiatric illness. We have been asked to evaluate the patient for tachycardia. Patient gives history that [facility] and he was upset with the workers as they were taking his phone and would not let him go outside also taking his vape and cigarettes. He finally became so frustrated that he left at 130 and he walked to his parents home which was a long distance away. He states he got to his parents home and they let him into the house and he he later went outside for cigarette and it sounds like he became upset again with his father. He states that his heart was racing and pounding in his chest and his legs were feeling very weak. This when he decided to come into the hospital for further evaluation. Patient states that he stopped taking his medications about a month ago. He supposed to be on Toprol XL which he states he takes 1 tablet in the morning and a half in the afternoon. According to the office record, patient is to take Toprol XL 50 mg 1-1/2 tablets in the morning. Patient's heart rate is jumping from 80-120 during conversation. Telemetry is a sinus rhythm. Patient is status post 2 L of IV fluid and Ativan. EKG sinus tachycardia 145 bpm Chest x-ray: No acute process. CT brain no acute process. Laboratory studies: WBC 7.1, hemoglobin 12.2. Sodium 138, potassium 3.6, CO2 19, BUN 16 creatinine 0.79. Troponin negative x 3. TSH 2.36. D-dimer 0.28. Home cardiac medications: Toprol XL 75 mg daily. Review Of Systems: At the time of my exam: CONSTITUTIONAL: Denies fever or chills. HEENT: Denies blurred vision, vision changes, or eye pain. Denies hemoptysis CARDIOVASCULAR: Denies chest pain. Denies orthopnea. Denies PND. Denies palpitations RESPIRATORY: Denies shortness of breath. GASTROINTESTINAL: Denies abdominal pain. Denies nausea or vomiting. HEMATOLOGIC: Denies bleeding disorders. GENITOURINARY: Denies any blood in urine. SKIN: Denies pruitis. Denies rash. Physical examination: Gen: This is a 33-year-old male in no acute distress. VS: reviewed HEENT: Head is atraumatic, normocephalic. Pupils equal, round. Sclerae is anicteric. NECK: Supple. No JVD. LUNGS: Clear to auscultation. No wheezes or rhonchi. No intercostal retractions. HEART: Regular rate and rhythm. No murmur. ABDOMEN: Soft No tenderness. EXTREMITIES: No pedal edema. No calf tenderness. NEUROLOGICAL: Patient is awake, alert and oriented x3. Assessment: Sinus tachycardia Tobacco use and dependence Plan: Patient will be started on Toprol XL 75 mg daily starting now Obtain 2-D echocardiogram and Doppler study to assess cardiac structure and function Further recommendations to follow based upon clinical course Thank you kindly for this consultation. Nurse practitioner note has been reviewed, I agree with documented findings and plan of care. Patient was seen and examined. Past Medical History Past Medical History: Hypertension Additional Past Medical History / Comment(s): Severe anxiety, migraines, chronic back pain, difficulty with focusing attention. COVID 01/20/23, History of Any Multi-Drug Resistant Organisms: None Reported Past Surgical History: Orthopedic Surgery Additional Past Surgical History / Comment(s): Left wrist open reduction internal fixation, lipoma removed from right posterior shoulder. Past Anesthesia/Blood Transfusion Reactions: No Reported Reaction Past Psychological History: ADD/ADHD, Anxiety, Depression, Schizophrenia Smoking Status: Vaper Past Alcohol Use History: None Reported Past Drug Use History: None Reported - Past Family History Father Family Medical History: Cancer, CVA/TIA, Myocardial Infarction ([place]) Additional Family Medical History / Comment(s): Father is alive at age 58. Dada gamboa states he has a rare cancer and undergoing chemotherapy. Mother Family Medical History: Coronary Artery Disease (CAD), Hypertension, Syncope Additional Family Medical History / Comment(s): Mother is alive at age 54 and also has history of anxiety and depression. Sister(s) History Unknown: Yes Family Medical History: Hyperlipidemia Medications and Allergies Home Medications Medication Instructions Recorded Confirmed Type Testosterone Cypionate 150 mg IM Q14D 04/18/22 10/11/23 History [Depo-Testosterone] ALPRAZolam [Xanax] 1.5 mg PO BID PRN 10/11/23 10/11/23 History ARIPiprazole [Abilify] 5 mg PO DAILY 10/11/23 10/11/23 History Cholecalciferol [Vitamin D3 (25 50 mcg PO DAILY 10/11/23 10/11/23 History Mcg = 1000 Iu)] Cyclobenzaprine [Flexeril] 10 mg PO TID 10/11/23 10/11/23 History Dextroamphetamine/Amphetamine 20 mg PO DAILY 10/11/23 10/11/23 History [Adderall Xr 20 mg Capsule] Gabapentin [Neurontin] 600 mg PO TID 10/11/23 10/11/23 History Metoprolol Succinate (ER) [Toprol 75 mg PO DAILY 10/11/23 10/11/23 History Xl] Sertraline [Zoloft] 100 mg PO DAILY 10/11/23 10/11/23 History Allergies Allergy/AdvReac Type Severity Reaction Status Date / Time No Known Allergies Allergy Verified 10/11/23 09:32 Physical Exam Vitals: Vital Signs Temp Pulse Resp BP Pulse Ox 10/11/23 13:00 80 18 108/73 95 10/11/23 12:10 91 18 121/72 95 10/11/23 10:50 90 16 101/61 97 10/11/23 08:24 89 18 108/74 98 10/11/23 07:47 115 H 18 106/61 95 10/11/23 06:39 112 H 10/11/23 06:30 131 H 18 108/64 97 10/11/23 06:02 98.2 F 169 H 18 119/79 98 Intake and Output 10/10/23 10/11/23 10/11/23 22:59 06:59 14:59 Other: Weight 95.254 kg Results 10/11/23 07:24 10/11/23 06:20 Cardiac Enzymes 10/11/23 10/11/23 10/11/23 Range/Units 06:20 06:20 10:29 AST 32 (17-59) U/L Troponin I <0.012 <0.012 (0.000-0.034) ng/mL 10/11/23 Range/Units 13:11 AST (17-59) U/L Troponin I <0.012 (0.000-0.034) ng/mL Coagulation 10/11/23 Range/Units 06:20 PT 10.3 (10.0-12.5) sec APTT 26.0 (22.0-30.0) sec CBC 10/11/23 Range/Units 07:24 WBC 7.1 (3.8-10.6) k/uL RBC 4.25 L (4.30-5.90) m/uL Hgb 12.2 L (13.0-17.5) gm/dL Hct 37.6 L (39.0-53.0) % Plt Count 213 (150-450) k/uL Comprehensive Metabolic Panel 10/11/23 Range/Units 06:20 Sodium 138 (137-145) mmol/L Potassium 3.6 (3.5-5.1) mmol/L Chloride 109 H (98-107) mmol/L Carbon Dioxide 19 L (22-30) mmol/L BUN 16 (9-20) mg/dL Creatinine 0.79 (0.66-1.25) mg/dL Glucose 131 H (74-99) mg/dL Calcium 9.1 (8.4-10.2) mg/dL AST 32 (17-59) U/L ALT 24 (4-49) U/L Alkaline Phosphatase 88 (38-126) U/L Total Protein 7.2 (6.3-8.2) g/dL Albumin 4.5 (3.5-5.0) g/dL Current Medications Generic Name Dose Route Start Last Admin Trade Name Freq PRN Reason Stop Dose Admin Acetaminophen 650 mg 10/11/23 09:09 Acetaminophen Tab 325 Mg Tab PO Q6HR PRN Mild Pain or Fever > 100.5 Alprazolam 1.5 mg 10/11/23 09:42 Alprazolam 1 Mg Tab PO BID PRN Anxiety Aripiprazole 5 mg 10/12/23 09:00 Aripiprazole 5 Mg Tab PO DAILY AINSLEY Cholecalciferol 50 mcg 10/12/23 09:00 Cholecalciferol 25 Mcg (1000 Iu) Tablet PO DAILY AINSLEY Cyclobenzaprine HCl 10 mg 10/11/23 16:00 Cyclobenzaprine 10 Mg Tab PO TID AINSLEY Gabapentin 600 mg 10/11/23 16:00 Gabapentin 300 Mg Cap PO TID [facility] Sodium Chloride 1,000 mls @ 75 mls/hr 10/11/23 09:15 10/11/23 10:00 Saline 0.9% IV 75 mls/hr .[id number] AINSLEY Administration Ibuprofen 400 mg 10/11/23 09:09 Ibuprofen 400 Mg Tab PO Q6HR PRN Mild Pain or Fever > 100.5 Ketorolac Tromethamine 15 mg 10/11/23 09:09 Ketorolac 15 Mg/Ml 1 Ml Vial IVP 10/14/23 09:12 Q6HR PRN Moderate Pain (Scale 4 to 6) Metoprolol Succinate 75 mg 10/11/23 14:30 Metoprolol Succinate (Er) 25 Mg Tab.Er.24h PO DAILY AINSLEY Naloxone HCl 0.2 mg 10/11/23 09:09 Naloxone 0.4 Mg/Ml 1 Ml Vial IV Q2M PRN Opioid Reversal Non-Formulary Medication 20 mg 10/12/23 09:00 Dextroamphetamine/Amphetamine [Adderall Xr 20 Mg Capsule] PO DAILY AINSLEY Ondansetron HCl 4 mg 10/11/23 09:09 Ondansetron 4 Mg/2 Ml Vial IVP Q8HR PRN Nausea And Vomiting Pantoprazole Sodium 40 mg 10/12/23 09:00 Pantoprazole 40 Mg/10 Ml Vial IV DAILY AINSLEY Sertraline HCl 100 mg 10/12/23 09:00 Sertraline 100 Mg Tab PO DAILY IANSLEY Intake and Output 10/10/23 10/11/23 10/11/23 22:59 06:59 14:59 Other: Weight 95.254 kg 10/11/23 07:24 10/11/23 06:20
[2023-10-11] MEDS: METOPROLOL SUCCINATE (ER) 25 MG TAB.ER.24H PO SCH (16:09)
[2023-10-11] MEDS: GABAPENTIN 300 MG CAP PO SCH (16:09)
[2023-10-11] MEDS: CYCLOBENZAPRINE 10 MG TAB PO SCH (16:09)
--- NOTE | 2023-10-11 21:24 | HP ---
HISTORY AND PHYSICAL CHIEF COMPLAINT: Palpitations, speech problems, and body twitching. HISTORY OF PRESENT ILLNESS: This is a 33-year-old gentleman with a past medical history of multiple medical problems including ETOH in the remote past and as well as Vicodin addiction, was living in [facility]. The patient apparently had multiple symptomatology including palpitations, twitching, and feeling like the whole body was pulsating. The patient came to [facility]. Heart rate was found to be elevated up to 160, and the patient was admitted for further evaluation and treatment. There is no history of any fever or rigors. No history of headache, loss of consciousness, or seizures at this time. PAST MEDICAL HISTORY: History of Vicodin usage, ADD, ADHD, depression, severe anxiety, history of COVID-19, rest of the history and chart is also reviewed. HOME MEDICATIONS: Zoloft, dose and rest of medications noted. ALLERGIES: None. FAMILY HISTORY: History of CVA, myocardial infarction. SOCIAL HISTORY: As above. REVIEW OF SYSTEMS: A 14-point review is negative except as mentioned earlier. PHYSICAL EXAMINATION: VITAL SIGNS: Pulse is 115 and regular, blood pressure is , respirations 18. HEENT: Conjunctivae normal. NECK: No jugular venous distention. CARDIOVASCULAR: S1, S2 muffled. Tachycardic. RESPIRATIONS: Few scattered rhonchi and crackles. ABDOMEN: Soft, nontender. LEGS: No edema, no swelling. SKIN: No ulcer, rash, or bleeding. JOINTS: No active deforming arthropathy. LABORATORY DATA: Reviewed. ASSESSMENT: 1. Tachycardia for evaluation of sinus tachycardia versus SVT. 2. Rule out long COVID. 3. Severe anxiety. 4. Hypertension. 5. ADD, anxiety, depression, schizophrenia. 6. History of Vicodin addiction. 7. Remote history of EtOH. RECOMMENDATIONS AND DISCUSSION: This 33-year-old gentleman presented with multiple complex medical issues, we will monitor the patient closely. Continue the cardiology consultation, 2D echo, full cardiac workup. Would also recommend repeat COVID testing also to make sure, otherwise sedimentation rate, CRP, D-dimer. Prognosis is guarded because of multiple complex medical issues. Further recommendations to follow. See orders for details. MMODL / IJN: [id number] / MTDD
[2023-10-11] MEDS: IBUPROFEN 400 MG TAB PO PRN (22:24)
[2023-10-12 08:00] VITALS: BP 102/65; PULSE 48; RESP 16; TEMP 97.7
[2023-10-12 09:00] LABS: Basophils # (A) 0.05 X 10*3/uL (0.00-0.10); Basophils % (A) 0.8 %; Eosinophils % (A) 3.2 %; HCT 40.5 % (39.6-50.0); Lymphocytes # (A) 1.73 X 10*3/uL (0.90-5.00); Lymphocytes % (A) 27.9 %; MCH 29.1 pg (27.0-32.0); MCHC 32.1 g/dL (32.0-37.0); MCV 90.6 FL (80.0-97.0); Mean Platelet Volume 10.8 FL (9.5-12.2); Monocytes # (A) 0.69 X 10*3/uL (0.20-1.00); Monocytes % (A) 11.1 %; NRBC Per 100 WBC 0 X 10*3/uL (0.00-0.01); Neutrophils # (A) 3.48 X 10*3/uL (1.80-7.70); Neutrophils % (A) 56.4 %; Platelet Count 198 X 10*3/uL (140-440); RBC 4.47 X 10*6/uL (4.40-5.60); RDW 13.4 % (11.5-14.5); WBC 6.19 X 10*3/uL (4.50-10.00)
[2023-10-12] MEDS ORDERED: METOPROLOL SUCCINATE (ER) 25 MG TAB.ER.24H PO SCH (09:00)
[2023-10-12 09:08] LABS: ALT 18 U/L (10-49); AST 19 U/L (14-35); Albumin 3.9 g/dL (3.8-4.9); Albumin/Globulin Ratio 1.95 Ratio (1.60-3.17); Alkaline Phosphatase 64 U/L (41-126); BUN/Creat Ratio 14.82 Ratio (12.00-20.00); Blood Urea Nitrogen 16.3 mg/dL (9.0-27.0); Calcium 8.8 mg/dL (8.7-10.3); Carbon Dioxide 24.5 mmol/L (21.6-31.8); Chloride 108 mmol/L (96-109); Glucose 98 mg/dL (70-110); Potassium 4.8 mmol/L (3.5-5.5); Sodium 139 mmol/L (135-145); Total Bilirubin 0.3 mg/dL (0.3-1.2); Total Protein 5.9 g/dL (6.2-8.2)
--- NOTE | 2023-10-12 09:22 | P.PN ---
Subjective Progress Note Date: 10/12/23 Tachycardia History of present illness: This is a 33-year-old male patient of Dr. DASIA Clark with past medical history of tachycardia, palpitations, obesity, psychiatric illness. We have been asked to evaluate the patient for tachycardia. Patient gives history that [facility] and he was upset with the workers as they were taking his phone and would not let him go outside also taking his vape and cigarettes. He finally became so frustrated that he left at 130 and he walked to his parents home which was a long distance away. He states he got to his parents home and they let him into the house and he he later went outside for cigarette and it sounds like he became upset again with his father. He states that his heart was racing and pounding in his chest and his legs were feeling very weak. This when he decided to come into the hospital for further evaluation. Patient states that he stopped taking his medications about a month ago. He supposed to be on Toprol XL which he states he takes 1 tablet in the morning and a half in the afternoon. According to the office record, patient is to take Toprol XL 50 mg 1-1/2 tablets in the morning. Patient's heart rate is jumping from 80-120 during conversation. Telemetry is a sinus rhythm. Patient is status post 2 L of IV fluid and Ativan. EKG sinus tachycardia 145 bpm Chest x-ray: No acute process. CT brain no acute process. Laboratory studies: WBC 7.1, hemoglobin 12.2. Sodium 138, potassium 3.6, CO2 19, BUN 16 creatinine 0.79. Troponin negative x 3. TSH 2.36. D-dimer 0.28. Home cardiac medications: Toprol XL 75 mg daily. 10/11 Patient is seen today on the observation unit. He does state that he has been taking the Toprol XL at home and only not taking his psychiatric medications prior to hospitalization. Echocardiogram has been done and report is pending. Heart rate is currently controlled in the 50s to 80s. Blood pressure 115/77, orthostatic vital signs negative. Physical examination: Gen: This is a 33-year-old male in no acute distress. VS: reviewed HEENT: Head is atraumatic, normocephalic. Pupils equal, round. Sclerae is anicteric. NECK: Supple. No JVD. LUNGS: Clear to auscultation. No wheezes or rhonchi. No intercostal retractions. HEART: Regular rate and rhythm. No murmur. ABDOMEN: Soft No tenderness. EXTREMITIES: No pedal edema. No calf tenderness. NEUROLOGICAL: Patient is awake, alert and oriented x3. Assessment: Sinus tachycardia Tobacco use and dependence Plan: Continue Toprol XL 75 mg daily Obtain 2-D echocardiogram and Doppler study to assess cardiac structure and function Patient is cleared for discharge from cardiology and may follow-up in the office with Dr. DASIA Clark in 1 to 2 weeks. Echocardiogram will be reviewed. Patient does not have to wait for formal report. Nurse practitioner note has been reviewed, I agree with documented findings and plan of care. Patient was seen and examined. Objective - Vital Signs Vital signs: Vital Signs Temp 97.7 F 10/12/23 07:00 Pulse 48 L 10/12/23 07:00 Resp 16 10/12/23 07:00 BP 102/65 10/12/23 07:00 Pulse Ox 100 10/12/23 07:00 FiO2 Intake & Output 10/11/23 10/12/23 10/12/23 18:59 06:59 18:59 Weight 95.254 kg Other: Voiding Method Toilet # Voids 3 - Labs CBC & Chem 7: 10/12/23 06:02 10/12/23 06:02 Labs: Abnormal Lab Results - Last 24 Hours (Table) 10/11/23 Range/Units 14:06 C-Reactive Protein 2.4 H (<1.0) mg/dL
--- NOTE | 2023-10-12 10:04 | CA ---
Transthoracic Echo Report Name: Babak Joy Age: 33 Gender: M : 1990 Exam Date: 10/11/2023 13:46 Exam Location: [facility] Ht (in): 72 Wt (lb): 205 Ordering Physician: Can Maxwell MD Attending/Referring Phys: Location Worker Nereyda Vernon RDCS Procedure CPT: Indications: svt Cardiac Hx: Technical Quality: Good Contrast 1: Total Dose (mL): Contrast 2: Total Dose (mL): MEASUREMENTS (Male / Female) Normal Values 2D ECHO LV Diastolic Diameter PLAX 3.8 cm 4.2 - 5.9 / 3.9 - 5.3 cm LV Systolic Diameter PLAX 2.6 cm IVS Diastolic Thickness 1.0 cm 0.6 - 1.0 / 0.6 - 0.9 cm LVPW Diastolic Thickness 1.0 cm 0.6 - 1.0 / 0.6 - 0.9 cm LV Relative Wall Thickness 0.5 RV Internal Dim ED PLAX 2.4 cm LA Systolic Diameter LX 3.6 cm 3.0 - 4.0 / 2.7 - 3.8 cm LV Diastolic Volume MOD BP 88.7 cm??? 67 - 155 / 56 - 104 cm??? LV Systolic Volume MOD BP 35.3 cm??? 22 - 58 / 19 - 49 cm??? LV Ejection Fraction MOD BP 60.3 % >= 55 % LV Cardiac Index MOD BP 2759.1 cm???/min???m??? LV Diastolic Volume MOD 4C 77.7 cm??? LV Systolic Volume MOD 4C 37.2 cm??? LV Ejection Fraction MOD 4C 52.1 % LV Cardiac Index MOD 4C 2090.4 cm???/min???m??? LV Diastolic Length 4C 7.0 cm LV Systolic Length 4C 5.9 cm LV Diastolic Volume MOD 2C 92.6 cm??? LV Systolic Volume MOD 2C 33.6 cm??? LV Ejection Fraction MOD 2C 63.7 % LV Cardiac Index MOD 2C 3046.8 cm???/min???m??? LV Diastolic Length 2C 7.7 cm LV Systolic Length 2C 5.9 cm LA Volume 50.3 cm??? 18 - 58 / 22 - 52 cm??? LA Volume Index 23.0 cm???/m??? 16 - 28 cm???/m??? M-MODE Aortic Root Diameter MM 3.1 cm LA Systolic Diameter MM 3.5 cm LA Ao Ratio MM 1.1 AV Cusp Separation MM 2.0 cm DOPPLER MV Area PHT 3.0 cm??? Mitral E Point Velocity 93.9 cm/s Mitral A Point Velocity 83.7 cm/s Mitral E to A Ratio 1.1 MV Deceleration Time 254.3 ms TR Peak Velocity 210.5 cm/s TR Peak Gradient 17.7 mmHg Right Ventricular Systolic Press 21.4 mmHg FINDINGS Left Ventricle Left ventricular ejection fraction is estimated at 55-60%. Normal left ventricular wall motion. No obvious regional wall motion abnormalities. Left ventricular cavity size normal. Right Ventricle Normal right ventricular size and function. Right ventricular systolic pressure within normal limits. Right Atrium Normal right atrial size. Left Atrium Normal left atrial size. Mitral Valve Structurally normal mitral valve. Trace mitral regurgitation. No mitral stenosis. Aortic Valve Trileaflet aortic valve. No aortic valve stenosis or regurgitation. Tricuspid Valve Structurally normal tricuspid valve. Mild tricuspid regurgitation. Pulmonic Valve Structurally normal pulmonic valve. Trace pulmonic regurgitation. No pulmonic stenosis. Pericardium No pericardial or pleural effusion. Aorta Normal size aortic root and proximal ascending aorta. CONCLUSIONS Normal LV size and systolic function. No significant abnormality on the Doppler exam. No pericardial effusion. No pulmonary hypertension Previewed by: Dr. Yen Clark MD (Electronically Signed) Final Date: 12 Oct 2023 10:03
[2023-10-12] MEDS: ARIPiprazole 5 MG TAB PO SCH (10:12)
[2023-10-12] MEDS: CHOLECALCIFEROL 25 MCG (1000 IU) TABLET PO SCH (10:18)
[2023-10-12] MEDS: PANTOPRAZOLE 40 MG/10 ML VIAL IV SCH (10:18)
[2023-10-12] MEDS: KETOROLAC 15 MG/ML 1 ML VIAL IVP PRN (10:19)
[2023-10-12] MEDS: SERTRALINE 100 MG TAB PO SCH (10:19)
[2023-10-12] MEDS: ALPRAZolam 1 MG TAB PO PRN (10:31)
[2023-10-12] MEDS: NON FORMULARY DRUG (Dextroamphetamine/Amphetamine [Adderall Xr 20 Mg Capsule] 20 MG Cap.Er PO SCH (11:02)
[2023-10-13] MEDS ORDERED: PANTOPRAZOLE 40 MG TABLET PO SCH (07:30)
--- NOTE | 2023-10-15 07:00 | P.DS ---
Providers Date of admission: 10/11/23 09:44 Expected date of discharge: 10/12/23 Attending physician: Can Maxwell Consults: 10/11/23 09:09 Consult Physician Urgent Consulting Provider: Singh Boss Consult Reason/Comments: Tachycardia Do you want consulting provider notified?: Yes [facility] Course: Final diagnosis Tachycardia sinus tachycardia, ruled out SVT Long COVID, possibly Severe anxiety history Hypertension history History of ADD//depression/schizophrenia History of Vicodin addiction and substance abuse History of EtOH abuse Noncompliance with medications and follow-up GI prophylaxis DVT prophylaxis Full code Discharge disposition Patient is being discharged in a stable condition with guarded prognosis to home. Patient will follow-up with Dr. Srinivasa Maxwell in the outpatient setting upon discharge. Patient is to continue with close outpatient follow-up with cardiology as scheduled. Total time taken is greater than 35 minutes. Hospital course This is a 33-year-old male who was recently admitted with concerns of palpitations with elevated heart rate being closely monitored. Patient continued on telemetry monitoring evaluated by cardiology made adjustments to medications recommending outpatient follow-up. Patient with significant mental health history currently [facility] and needs to follow-up with [facility] outpatient. Patient also instructed to follow-up with primary care provider on discharge. Patient will need outpatient follow-up with Dr. Eduardo campbell in 1 to 2 weeks. Please refer to cardiology notes for further HPI. Currently no reports of chest pain, shortness of breath, or palpitations. Patient is afebrile. No reports of nausea or vomiting and patient is tolerating diet. Patient will be discharged home today. Guarded prognosis and high risk for readmissions given patient's noncompliance and mental health and substance abuse history. Physical exam: Gen: This is a 33-year-old male who is awake, alert and oriented x 3, well- developed, well-nourished HEENT: Head is atraumatic, normocephalic. Pupils equal, round. Sclerae is anicteric. NECK: Supple. No JVD. No lymphadenopathy. No thyromegaly. LUNGS: Clear to auscultation. No wheezes or rhonchi. No intercostal retractions. HEART: S1, S2 are muffled, currently sinus on the monitor ABDOMEN: Soft. Bowel sounds are present. No masses. No tenderness. EXTREMITIES: No pedal edema. No calf tenderness. NEUROLOGICAL: Patient is awake, alert and oriented x3. Cranial nerves 2 through 12 are grossly intact. Please refer to medication reconciliation sheet for a list of medications. The impression and plan of care has been dictated by Katy Lucio, Nurse Practitioner as directed. Dr. Hans MD I have performed a history and examination and MDM of this patient, discussed the same with the dictator, and agree with the dictator's assessment and plan as written ,documented as a scribe. Based on total visit time, I have performed more than 50% of the visit. Patient Condition at Discharge: Stable Plan - Discharge Summary Discharge Rx Participant: No New Discharge Prescriptions: New Ibuprofen [Motrin] 400 mg PO Q6HR PRN tab PRN Reason: Mild Pain Or Fever > 100.5 Acetaminophen Tab [Tylenol] 650 mg PO Q6HR PRN tab PRN Reason: Mild Pain Or Fever > 100.5 Continue Dextroamphetamine/Amphetamine [Adderall Xr 20 mg Capsule] 20 mg PO DAILY Cyclobenzaprine [Flexeril] 10 mg PO TID Testosterone Cypionate [Depo-Testosterone] 150 mg IM Q14D Sertraline [Zoloft] 100 mg PO DAILY Gabapentin [Neurontin] 600 mg PO TID Cholecalciferol [Vitamin D3 (25 Mcg = 1000 Iu)] 50 mcg PO DAILY ALPRAZolam [Xanax] 1.5 mg PO BID PRN PRN Reason: Anxiety ARIPiprazole [Abilify] 5 mg PO DAILY Metoprolol Succinate (ER) [Toprol XL] 75 mg PO DAILY 30 Days #45 tab Discharge Medication List Testosterone Cypionate [Depo-Testosterone] 150 mg IM Q14D 04/18/22 [History] ALPRAZolam [Xanax] 1.5 mg PO BID PRN 10/11/23 [History] ARIPiprazole [Abilify] 5 mg PO DAILY 10/11/23 [History] Cholecalciferol [Vitamin D3 (25 Mcg = 1000 Iu)] 50 mcg PO DAILY 10/11/23 [History] Cyclobenzaprine [Flexeril] 10 mg PO TID 10/11/23 [History] Dextroamphetamine/Amphetamine [Adderall Xr 20 mg Capsule] 20 mg PO DAILY 10/11/23 [History] Gabapentin [Neurontin] 600 mg PO TID 10/11/23 [History] Sertraline [Zoloft] 100 mg PO DAILY 10/11/23 [History] Acetaminophen Tab [Tylenol] 650 mg PO Q6HR PRN tab 10/12/23 [Rx] Ibuprofen [Motrin] 400 mg PO Q6HR PRN tab 10/12/23 [Rx] Metoprolol Succinate (ER) [Toprol XL] 75 mg PO DAILY 30 Days #45 tab 10/12/23 [Rx] Follow up Appointment(s)/Referral(s): Yen Clark MD [STAFF PHYSICIAN] - 10/23/23 2:15 pm (Appointment made at the [facility] ) Becky Cristobal MD [Primary Care Provider] - 1-2 days Patient Instructions/Handouts: Tachycardia (GEN) Activity/Diet/Wound Care/Special Instructions: Activity limited until follow-up Follow-up with primary care provider on discharge Follow-up with cardiology in 1 to 2 weeks Continue taking medications as prescribed Follow-up [facility] outpatient Discharge/Stand Alone Forms: AA Meetings [facility] 24 - [facility], AA Meetings [place], [facility] Shelters, Who Do I Call?, Community Resources, Outpatient Counseling, Inp Substance Abuse Facilities Discharge Disposition: HOME SELF-CARE
== END 2023-10-12 14:52 | disposition home or self-care (01) ==
LOC: EC 06:00 → 6NMEDSUR 09:44 → EEVIPCON 09:44 → 6NMEDSUR 16:16
PROVIDERS: ADMIT Hospitalist; ATTEND Hospitalist
DX: R53.1 Weakness (principal); R00.0 Tachycardia, unspecified; I10 Essential (primary) hypertension; F20.9 Schizophrenia, unspecified; F41.8 Other specified anxiety disorders; Z91.199 Patient's noncompliance with other medical treatment and regimen due to unspecified reason; Z82.49 Family history of ischemic heart disease and other diseases of the circulatory system; Z79.899 Other long term (current) drug therapy
CPT/HCPCS: 96374; 96375; 99285; 36415; 93005; 93306; 85379; 80053 ×2; 85652; 84443; 83735; 84484; 85025 ×2; 85610; 85730; 86140; 81003; 80306; 80320; 87636; 71046; 70450; G0378 ×2; J2060; J1885; C9113

== ENCOUNTER 2023-10-13 08:03 | Emergency (ER) | payer OTHER ==
[2023-10-13 08:25] VITALS: TEMP 98.3
--- NOTE | 2023-10-13 08:41 | ED ---
General Adult HPI - General Chief complaint: Psychiatric Symptoms Stated complaint: mental health Time Seen by Provider: 10/13/23 08:05 Source: patient, police, RN notes reviewed, old records reviewed Mode of arrival: ambulatory Limitations: no limitations - History of Present Illness Initial comments: This is a 33-year-old male who presents to the emergency department under petition and court order. Patient states he is not suicidal homicidal. Patient states his mother petition to be does not know why. Patient states he was recently [facility] but he was having palpitations so he told me he needed to leave to go work and so they let him out and then they took him to assisted after he was released from the hospital he states they took him to assisted because he left here in house. Patient was released this morning and brought here by the [employer] department to be evaluated. Patient denies any problems he denies being paranoid he denies anybody trying to hurt or harm him. Patient states he is just trying to get his life in order so he came get a job. - Related Data Home Medications Medication Instructions Recorded Confirmed Testosterone Cypionate 150 mg IM Q14D 04/18/22 10/13/23 [Depo-Testosterone] ALPRAZolam [Xanax] 1.5 mg PO BID PRN 10/11/23 10/13/23 ARIPiprazole [Abilify] 5 mg PO DAILY 10/11/23 10/13/23 Cholecalciferol [Vitamin D3 (25 50 mcg PO DAILY 10/11/23 10/13/23 Mcg = 1000 Iu)] Cyclobenzaprine [Flexeril] 10 mg PO TID 10/11/23 10/13/23 Dextroamphetamine/Amphetamine 20 mg PO DAILY 10/11/23 10/13/23 [Adderall Xr 20 mg Capsule] Gabapentin [Neurontin] 600 mg PO TID 10/11/23 10/13/23 Sertraline [Zoloft] 100 mg PO DAILY 10/11/23 10/13/23 Previous Rx's Medication Instructions Recorded Acetaminophen Tab [Tylenol] 650 mg PO Q6HR PRN tab 10/12/23 Ibuprofen [Motrin] 400 mg PO Q6HR PRN tab 10/12/23 Metoprolol Succinate (ER) [Toprol 75 mg PO DAILY 30 Days #45 tab 10/12/23 XL] Allergies Allergy/AdvReac Type Severity Reaction Status Date / Time No Known Allergies Allergy Verified 10/13/23 10:31 Review of Systems ROS Statement: Those systems with pertinent positive or pertinent negative responses have been documented in the HPI. ROS Other: All systems not noted in ROS Statement are negative. Past Medical History Past Medical History: Hypertension Additional Past Medical History / Comment(s): Severe anxiety, migraines, chronic back pain, difficulty with focusing attention. COVID 01/20/23, History of Any Multi-Drug Resistant Organisms: None Reported Past Surgical History: Orthopedic Surgery Additional Past Surgical History / Comment(s): Left wrist open reduction internal fixation, lipoma removed from right posterior shoulder. Past Anesthesia/Blood Transfusion Reactions: No Reported Reaction Past Psychological History: ADD/ADHD, Anxiety, Depression, Schizophrenia Smoking Status: Vaper Past Alcohol Use History: None Reported Past Drug Use History: None Reported - Past Family History Father Family Medical History: Cancer, CVA/TIA, Myocardial Infarction (HI) Additional Family Medical History / Comment(s): Father is alive at age 58. Patient states he has a rare cancer and undergoing chemotherapy. Mother Family Medical History: Coronary Artery Disease (CAD), Hypertension, Syncope Additional Family Medical History / Comment(s): Mother is alive at age 54 and also has history of anxiety and depression. Sister(s) History Unknown: Yes Family Medical History: Hyperlipidemia General Exam - General Exam Comments Initial Comments: GENERAL: Patient is well-developed and well-nourished. Patient is nontoxic and well- hydrated and is in no acute distress. ENT: Neck is soft and supple. No significant lymphadenopathy is noted. Oropharynx is clear. Moist mucous membranes. Neck has full range of motion without eliciting any pain. EYES: The sclera were anicteric and conjunctiva were pink and moist. Extraocular movements were intact and pupils were equal round and reactive to light. Eyelids were unremarkable. PULMONARY: Unlabored respirations. Good breath sounds bilaterally. No audible rales rhonchi or wheezing was noted. CARDIOVASCULAR: There is a regular rate and rhythm without any murmurs gallops or rubs. ABDOMEN: Soft and nontender with normal bowel sounds. SKIN: Skin is clear with no lesions or rashes and otherwise unremarkable. NEUROLOGIC: Patient is alert and oriented x3. Cranial nerves II through XII are grossly intact. Motor and sensory are also intact. Normal speech, volume and content. Symmetrical smile. MUSCULOSKELETAL: Normal extremities with adequate strength and full range of motion. LYMPHATICS: No significant lymphadenopathy is noted PSYCHIATRIC: Normal psychiatric evaluation. Limitations: no limitations Course Vital Signs 10/13/23 08:05 Temperature 98.3 F Pulse Rate 88 Respiratory 20 Rate Blood Pressure 131/84 O2 Sat by Pulse 100 Oximetry Medical Decision Making - Medical Decision Making Was pt. sent in by a medical professional or institution (, PA, MANAGER ELECTRICAL, urgent care, hospital, or retirement...) When possible be specific @ -Patient was sent in because of a court order Did you speak to anyone other than the patient for history (EMS, parent, family, police, friend...)? What history was obtained from this source @ -No Did you review nursing and triage notes (agree or disagree)? Why? @ -I reviewed and agree with nursing and triage notes Were old charts reviewed (outside hosp., previous admission, EMS record, old EKG, old radiological studies, urgent care reports/EKG's, retirement records)? Report findings @ -No old charts were reviewed Differential Diagnosis (chest pain, altered mental status, abdominal pain women, abdominal pain men, vaginal bleeding, weakness, fever, dyspnea, syncope, headache, dizziness, GI bleed, back pain, seizure, CVA, palpatations, mental health, musculoskeletal)? @ -Differential Mental Health Depression, anxiety, bipolar, psychosis, schizophrenia, borderline personality, situational depression, adjustment disorder, behavioral disorder, brain tumor, malingering, substance abuse, encephalopathy, medication reaction, dementia, hypothyroidism, degenerative neurologic disorder, lupus.... This is not meant to be all-inclusive list EKG interpreted by me (3pts min.). @ -As above X-rays interpreted by me (1pt min.). @ -None done CT interpreted by me (1pt min.). @ -None done U/S interpreted by me (1pt. min.). @ -None done What testing was considered but not performed or refused? (CT, X-rays, U/S, labs)? Why? @ -None What meds were considered but not given or refused? Why? @ -None Did you discuss the management of the patient with other professionals (professionals i.e. , RICKEY, MANAGER ELECTRICAL, lab, RT, psych nurse, director social, airplane dispatcher, teacher, radiation officer, continuous pillowcase cutter)? Give summary @ -EPS came down and evaluated the patient and they offered inpatient stay patient initially said yes but then later said no. The psychiatrist Dr. Atkinson came down and interviewed the patient and determined the patient could be discharged home and thought he would be safe patient never mentioned suicide any warning in the emergency department. Patient will be discharged home. Was smoking cessation discussed for >3mins.? @ -No Was critical care preformed (if so, how long)? @ -No Were there social determinants of health that impacted care today? How? (Homelessness, low income, unemployed, alcoholism, drug addiction, transportation, low edu. Level, literacy, decrease access to med. care, assisted, rehab)? @ -No Was there de-escalation of care discussed even if they declined (Discuss DNR or withdrawal of care, Hospice)? DNR status @ -No What co-morbidities impacted this encounter? (DM, HTN, Smoking, COPD, CAD, Cancer, CVA, ARF, Chemo, Hep., AIDS, mental health diagnosis, sleep apnea, morbid obesity)? @ -None Was patient admitted / discharged? Hospital course, mention meds given and route, prescriptions, significant lab abnormalities, going to OR and other pertinent info. @ -Hospital course Undiagnosed new problem with uncertain prognosis? @ -No Drug Therapy requiring intensive monitoring for toxicity (Heparin, Nitro, Insulin, Cardizem)? @ -No Were any procedures done? @ -No Diagnosis/symptom? @ -Evaluation for mental health Acute, or Chronic, or Acute on Chronic? @ -Acute Uncomplicated (without systemic symptoms) or Complicated (systemic symptoms)? @ -Complicated Side effects of treatment? @ -No Exacerbation, Progression, or Severe Exacerbation? @ -No Poses a threat to life or bodily function? How? (Chest pain, USA, HI, pneumonia, PE, COPD, DKA, ARF, appy, cholecystitis, CVA, Diverticulitis, Homicidal, Suicidal, threat to staff... and all critical care pts) @ -No - Lab Data Lab Results 10/13/23 Range/Units 08:41 Urine Opiates Screen Not Detected (NotDetected) Ur Oxycodone Screen Not Detected (NotDetected) Urine Methadone Screen Not Detected (NotDetected) Ur Barbiturates Screen Not Detected (NotDetected) U Tricyclic Antidepress Detected H (NotDetected) Ur Phencyclidine Scrn Not Detected (NotDetected) Ur Amphetamines Screen Not Detected (NotDetected) U Methamphetamines Scrn Not Detected (NotDetected) U Benzodiazepines Scrn Detected H (NotDetected) Urine Cocaine Screen Not Detected (NotDetected) U Marijuana (THC) Screen Detected H (NotDetected) Disposition Clinical Impression: Evaluation by psychiatric service required Disposition: HOME SELF-CARE Condition: Good Instructions (If sedation given, give patient instructions): Depression (ED), Suicide Prevention (ED) Is patient prescribed a controlled substance at d/c from ED?: No Referrals: Becky Cristobal MD [Primary Care Provider] - 1-2 days Time of Disposition: 12:58
[2023-10-13 09:58] LABS: Amphetamine Screen,Urine Not Detected (NotDetected); Barbiturate Screen,Urine Not Detected (NotDetected); Benzodiazepines Screen,Urine Detected (NotDetected); Cocaine Screen,Urine Not Detected (NotDetected); Methadone Screen, Urine Not Detected (NotDetected); Opiate Screen,Urine Not Detected (NotDetected); Oxycodone Screen, Urine Not Detected (NotDetected); Phencyclidine Screen,Urine Not Detected (NotDetected); Tricyclic Antidepressant,Urine Detected (NotDetected); Urn Cannabinoid Scrn Detected (NotDetected)
[2023-10-13 13:23] VITALS: BP 128/84; PULSE 80; RESP 18
== END 2023-10-13 13:07 | disposition home or self-care (01) ==
LOC: EC 08:03
DX: Z04.6 Encounter for general psychiatric examination, requested by authority (principal); F17.290 Nicotine dependence, other tobacco product, uncomplicated; Z86.16 Personal history of COVID-19
CPT/HCPCS: 80306; 82075; 99284

== ENCOUNTER 2024-02-11 17:40 | Emergency (ER) | payer OTHER ==
[2024-02-11 17:50] VITALS: TEMP 98.1
--- NOTE | 2024-02-11 18:25 | ED ---
URI HPI - General Source: patient, RN notes reviewed Mode of arrival: ambulatory Limitations: no limitations <Yareli Asif - Last Filed: 02/11/24 18:23> <Luz Maria Herrera - Last Filed: 02/12/24 01:16> - General Chief Complaint: Upper Respiratory Infection Stated Complaint: cough,SOB Time Seen by Provider: 02/11/24 18:23 - History of Present Illness Initial Comments: Quick note: 33-year-old male presented to the ER with a chief complaint of shortness of breath. He reports for the past 2 days he has been endorsing a cough, rhinorrhea and congestion. Unknown fevers. (Yareli Asif) 33-year-old male presents with chief complaint of shortness of breath. For the past 2 days he has had a nonproductive cough as well as congestion. He feels like he has some chest congestion but is unable to cough any phlegm up. No fever. No sore throat. No nausea vomiting or abdominal pain. The patient is 1/2 pack/day smoker. No palpitations. No dizziness. No lower extremity swelling. (Luz Maria Herrera) - Related Data Home Medications Medication Instructions Recorded Confirmed Testosterone Cypionate 150 mg IM Q14D 04/18/22 10/13/23 [Depo-Testosterone] ALPRAZolam [Xanax] 1.5 mg PO BID PRN 10/11/23 10/13/23 ARIPiprazole [Abilify] 5 mg PO DAILY 10/11/23 10/13/23 Cholecalciferol [Vitamin D3 (25 50 mcg PO DAILY 10/11/23 10/13/23 Mcg = 1000 Iu)] Cyclobenzaprine [Flexeril] 10 mg PO TID 10/11/23 10/13/23 Dextroamphetamine/Amphetamine 20 mg PO DAILY 10/11/23 10/13/23 [Adderall Xr 20 mg Capsule] Gabapentin [Neurontin] 600 mg PO TID 10/11/23 10/13/23 Sertraline [Zoloft] 100 mg PO DAILY 10/11/23 10/13/23 Previous Rx's Medication Instructions Recorded Acetaminophen Tab [Tylenol] 650 mg PO Q6HR PRN tab 10/12/23 Ibuprofen [Motrin] 400 mg PO Q6HR PRN tab 10/12/23 Metoprolol Succinate (ER) [Toprol 75 mg PO DAILY 30 Days #45 tab 10/12/23 XL] Albuterol Sulfate [Albuterol 2 puff PO Q6H PRN #8.5 gm 02/11/24 Sulfate Hfa] predniSONE [Deltasone] 60 mg PO DAILY 5 Days #15 tab 02/11/24 Allergies Allergy/AdvReac Type Severity Reaction Status Date / Time No Known Allergies Allergy Verified 10/13/23 10:31 Review of Systems ROS Other: All systems not noted in ROS Statement are negative. <Yareli Asif - Last Filed: 02/11/24 18:23> ROS Other: All systems not noted in ROS Statement are negative. <Luz Maria Herrera - Last Filed: 02/12/24 01:16> ROS Statement: Those systems with pertinent positive or pertinent negative responses have been documented in the HPI. Past Medical History Past Medical History: Hypertension Additional Past Medical History / Comment(s): Severe anxiety, migraines, chronic back pain, difficulty with focusing attention. COVID 01/20/23, History of Any Multi-Drug Resistant Organisms: None Reported Past Surgical History: Orthopedic Surgery Additional Past Surgical History / Comment(s): Left wrist open reduction internal fixation, lipoma removed from right posterior shoulder. Past Anesthesia/Blood Transfusion Reactions: No Reported Reaction Past Psychological History: ADD/ADHD, Anxiety, Depression, Schizophrenia Smoking Status: Vaper Past Alcohol Use History: None Reported Past Drug Use History: None Reported - Past Family History Father Family Medical History: Cancer, CVA/TIA, Myocardial Infarction ([place]) Additional Family Medical History / Comment(s): Father is alive at age 58. Patient states he has a rare cancer and undergoing chemotherapy. Mother Family Medical History: Coronary Artery Disease (CAD), Hypertension, Syncope Additional Family Medical History / Comment(s): Mother is alive at age 54 and also has history of anxiety and depression. Sister(s) History Unknown: Yes Family Medical History: Hyperlipidemia <Yareli Asif - Last Filed: 02/11/24 18:23> General Exam Limitations: no limitations <Yareli Asif - Last Filed: 02/11/24 18:23> Limitations: no limitations General appearance: alert, in no apparent distress Head exam: Present: atraumatic, normocephalic, normal inspection Eye exam: Present: normal appearance, EOMI Neck exam: Present: normal inspection. Absent: meningismus Respiratory exam: Present: wheezes. Absent: respiratory distress, rales, rhonchi, stridor Cardiovascular Exam: Present: normal rhythm, tachycardia, normal heart sounds. Absent: systolic murmur, diastolic murmur, rubs, gallop, clicks Neurological exam: Present: alert, oriented X3, CN II-XII intact Psychiatric exam: Present: normal affect, normal mood Skin exam: Present: warm, dry <Luz Maria Herrera - Last Filed: 02/12/24 01:16> - General Exam Comments Initial Comments: Visual Physical Exam Vital signs reviewed General: Well-appearing, nontoxic, no acute distress. Head: Normocephalic, atraumatic Eyes: PERRLA, EOMI ENT: Airway patent Chest: Nonlabored breathing Skin: No visual rash, normal skin tone Neuro: Alert and oriented 3 Musculoskeletal: No gross abnormalities (Yareli Asif) Course Vital Signs 02/11/24 02/11/24 02/11/24 17:47 20:31 20:40 Temperature 98.1 F Pulse Rate 114 H 125 H 120 H Respiratory 20 Rate Blood Pressure 157/78 O2 Sat by Pulse 98 Oximetry 02/11/24 21:35 Temperature Pulse Rate 107 H Respiratory 22 Rate Blood Pressure 102/84 O2 Sat by Pulse 98 Oximetry Medical Decision Making <Yareli Asif - Last Filed: 02/11/24 18:23> <Luz Maria Herrera - Last Filed: 02/12/24 01:16> - Medical Decision Making I performed the quick note portion of this chart. Electronically signed by Yareli Asif PA-C (Yareli Asif) Was pt. sent in by a medical professional or institution (RICKEY Moore, SENIOR FORMULATION SCIENTIST, urgent care, hospital, or usp...) When possible be specific @ -No Did you speak to anyone other than the patient for history (EMS, parent, family, police, friend...)? What history was obtained from this source @ -No Did you review nursing and triage notes (agree or disagree)? Why? @ -I reviewed and agree with nursing and triage notes Were old charts reviewed (outside hosp., previous admission, EMS record, old EKG, old radiological studies, urgent care reports/EKG's, usp records)? Report findings @ -No old charts were reviewed Differential Diagnosis (chest pain, altered mental status, abdominal pain women, abdominal pain men, vaginal bleeding, weakness, fever, dyspnea, syncope, headache, dizziness, GI bleed, back pain, seizure, CVA, palpatations, mental health, musculoskeletal)? @ -MDM Differential Dyspnea: Coronary syndrome, arrhythmia, tamponade, asthma, COPD, pulmonary embolism, pneumonia, pneumothorax, pulmonary effusion, anaphylaxis, diabetic ketoacidosis, flailed chest, pulmonary contusion, diaphragmatic rupture, anemia, neuromuscular this is not meant to be an all-inclusive list. EKG interpreted by me (3pts min.). @ -As above X-rays interpreted by me (1pt min.). @ -Chest x-ray shows no acute cardiopulmonary disease/process CT interpreted by me (1pt min.). @ -None done U/S interpreted by me (1pt. min.). @ -None done What testing was considered but not performed or refused? (CT, X-rays, U/S, labs)? Why? @ -None What meds were considered but not given or refused? Why? @ -None Did you discuss the management of the patient with other professionals (professionals i.e. , PA, SENIOR FORMULATION SCIENTIST, lab, RT, psych nurse, social sciences chair, director of safety, teacher, collection officer, family independence case manager)? Give summary @ -No Was smoking cessation discussed for >3mins.? @ -No Was critical care preformed (if so, how long)? @ -No Were there social determinants of health that impacted care today? How? (Homelessness, low income, unemployed, alcoholism, drug addiction, transportation, low edu. Level, literacy, decrease access to med. care, shelter, rehab)? @ -No Was there de-escalation of care discussed even if they declined (Discuss DNR or withdrawal of care, Hospice)? DNR status @ -No What co-morbidities impacted this encounter? (DM, HTN, Smoking, COPD, CAD, Cancer, CVA, ARF, Chemo, Hep., AIDS, mental health diagnosis, sleep apnea, morbid obesity)? @ -Smoking Was patient admitted / discharged? Hospital course, mention meds given and route, prescriptions, significant lab abnormalities, going to OR and other pertinent info. @ -33-year-old male presenting with chief complaint of cough congestion and difficulty breathing. Half pack per day smoker. Workup is initiated by triage. He is negative for influenza, RSV, COVID. Chest x-ray shows no acute process. On examination the patient has diffuse wheezes heard on auscultation. He is treated with DuoNeb and Solu-Medrol. On reassessment his lung sounds have significantly improved. He will be treated with prednisone and albuterol inhaler as needed at home. Discharged. Follow-up with PCP. Report back to ER with any new or worsening symptoms. Discussed return parameters and answered all questions. Patient conveyed verbal understanding and agreed to the plan. I discussed this case in detail with my attending Dr. Zhao Undiagnosed new problem with uncertain prognosis? @ -No Drug Therapy requiring intensive monitoring for toxicity (Heparin, Nitro, Insulin, Cardizem)? @ -No Were any procedures done? @ -No Diagnosis/symptom? @ -URI Acute, or Chronic, or Acute on Chronic? @ -Acute Uncomplicated (without systemic symptoms) or Complicated (systemic symptoms)? @ -Uncomplicated Side effects of treatment? @ -No Exacerbation, Progression, or Severe Exacerbation? @ -No Poses a threat to life or bodily function? How? (Chest pain, [place], [place], pneumonia, PE, COPD, DKA, ARF, appy, cholecystitis, CVA, Diverticulitis, Homicidal, Suicidal, threat to staff... and all critical care pts) @ -Low likelihood (Luz Maria Herrera) - Lab Data Lab Results 02/11/24 Range/Units 17:50 Influenza Type A (PCR) Not Detected (Not Detectd) Influenza Type B (PCR) Not Detected (Not Detectd) RSV (PCR) Not Detected (Not Detectd) SARS-CoV-2 (PCR) Not Detected (Not Detectd) Disposition <Yareli Asif - Last Filed: 02/11/24 18:23> Is patient prescribed a controlled substance at d/c from ED?: No Time of Disposition: 21:43 <Luz Maria Herrera - Last Filed: 02/12/24 01:16> Clinical Impression: Acute upper respiratory infection Disposition: HOME SELF-CARE Condition: Good Instructions (If sedation given, give patient instructions): How to Stop Smoking (ED), Upper Respiratory Infection (ED) Additional Instructions: Follow-up with PCP. Report back to ER with any new or worsening symptoms. Advised that you stop smoking, this will help your symptoms resolve and prevent any further damage to your lungs Prescriptions: Albuterol Sulfate [Albuterol Sulfate Hfa] 2 puff PO Q6H PRN #8.5 gm PRN Reason: Shortness Of Breath predniSONE [Deltasone] 60 mg PO DAILY 5 Days #15 tab Referrals: Becky Cristobal MD [Primary Care Provider] - 1-2 days
--- NOTE | 2024-02-11 18:32 | XR ---
EXAMINATION TYPE: XR chest 2V DATE OF EXAM: 02/11/2024 6:02 PM CLINICAL INDICATION: Male, 33 years old with history of short of breath; COMPARISON: Chest radiographs from 10/11/2023 TECHNIQUE: XR chest 2V Frontal view of the chest. FINDINGS: Lungs/Pleura: There is no evidence of pleural effusion, focal consolidation, or pneumothorax. Pulmonary vascularity: Unremarkable. Heart/mediastinum: Cardiomediastinal silhouette is unremarkable. Musculoskeletal: No acute osseous pathology. IMPRESSION: No acute cardiopulmonary disease/process. [facility] Enzo Huang, , 02/11/2024 6:30 PM
[2024-02-11] MEDS: IPRATROPIUM-ALBUTEROL 3 ML NEB INHALATION STA (20:30)
[2024-02-11] MEDS: methylPREDNISolone SOD SUCCI 125 MG/2 ML VIAL IM ONE (21:51)
[2024-02-11 21:58] VITALS: BP 102/84; PULSE 107; RESP 22
== END 2024-02-11 21:35 | disposition home or self-care (01) ==
LOC: EC 17:40
CPT/HCPCS: 71046; 87636; 94640; 96372; 99285

== ENCOUNTER 2024-04-10 23:30 | Emergency (ER) | payer OTHER ==
[2024-04-11 00:07] VITALS: RESP 18; TEMP 98.5
[2024-04-11] MEDS: KETOROLAC 15 MG/ML 1 ML VIAL IM STA (01:13)
[2024-04-11] MEDS: DEXAMETHASONE SOD PHOSPHATE 10 MG/ML 1 ML VIAL IM STA (01:14)
--- NOTE | 2024-04-11 01:41 | ED ---
Lower Extremity Injury HPI - General Chief Complaint: Extremity Injury, Lower Stated Complaint: Bilateral ankle pain Time Seen by Provider: 04/11/24 00:34 Source: patient Mode of arrival: ambulatory - History of Present Illness Initial Comments: 33-year-old male presenting with chief complaint of bilateral ankle pain. Patient denies any injury or trauma. States that it has been ongoing for few weeks. Patient is currently homeless and states that he has been walking a lot more trying to find fdc. No numbness tingling or weakness. The pain is an aching type pain. No discoloration or swelling. No redness or fevers. - Related Data Home Medications Medication Instructions Recorded Confirmed Testosterone Cypionate 150 mg IM Q14D 04/18/22 10/13/23 [Depo-Testosterone] ALPRAZolam [Xanax] 1.5 mg PO BID PRN 10/11/23 10/13/23 ARIPiprazole [Abilify] 5 mg PO DAILY 10/11/23 10/13/23 Cholecalciferol [Vitamin D3 (25 50 mcg PO DAILY 10/11/23 10/13/23 Mcg = 1000 Iu)] Cyclobenzaprine [Flexeril] 10 mg PO TID 10/11/23 10/13/23 Dextroamphetamine/Amphetamine 20 mg PO DAILY 10/11/23 10/13/23 [Adderall Xr 20 mg Capsule] Gabapentin [Neurontin] 600 mg PO TID 10/11/23 10/13/23 Sertraline [Zoloft] 100 mg PO DAILY 10/11/23 10/13/23 Previous Rx's Medication Instructions Recorded Acetaminophen Tab [Tylenol] 650 mg PO Q6HR PRN tab 10/12/23 Ibuprofen [Motrin] 400 mg PO Q6HR PRN tab 10/12/23 Metoprolol Succinate (ER) [Toprol 75 mg PO DAILY 30 Days #45 tab 10/12/23 XL] Albuterol Sulfate [Albuterol 2 puff PO Q6H PRN #8.5 gm 02/11/24 Sulfate Hfa] predniSONE [Deltasone] 60 mg PO DAILY 5 Days #15 tab 02/11/24 Allergies Allergy/AdvReac Type Severity Reaction Status Date / Time No Known Allergies Allergy Verified 04/11/24 00:06 Review of Systems ROS Statement: Those systems with pertinent positive or pertinent negative responses have been documented in the HPI. ROS Other: All systems not noted in ROS Statement are negative. Past Medical History Past Medical History: Hypertension Additional Past Medical History / Comment(s): Severe anxiety, migraines, chronic back pain, difficulty with focusing attention. COVID 01/20/23, History of Any Multi-Drug Resistant Organisms: None Reported Past Surgical History: Orthopedic Surgery Additional Past Surgical History / Comment(s): Left wrist open reduction internal fixation, lipoma removed from right posterior shoulder. Past Anesthesia/Blood Transfusion Reactions: No Reported Reaction Past Psychological History: ADD/ADHD, Anxiety, Depression, Schizophrenia Smoking Status: Vaper Past Alcohol Use History: None Reported Past Drug Use History: Prescription Drug Abuse - Past Family History Father Family Medical History: Cancer, CVA/TIA, Myocardial Infarction ([place]) Additional Family Medical History / Comment(s): Father is alive at age 58. Patient states he has a rare cancer and undergoing chemotherapy. Mother Family Medical History: Coronary Artery Disease (CAD), Hypertension, Syncope Additional Family Medical History / Comment(s): Mother is alive at age 54 and also has history of anxiety and depression. Sister(s) History Unknown: Yes Family Medical History: Hyperlipidemia General Exam General appearance: alert, in no apparent distress Head exam: Present: atraumatic, normocephalic, normal inspection Eye exam: Present: normal appearance, EOMI Neck exam: Present: normal inspection. Absent: meningismus Respiratory exam: Present: normal lung sounds bilaterally. Absent: respiratory distress, wheezes, rales, rhonchi, stridor Cardiovascular Exam: Present: regular rate, normal rhythm, normal heart sounds. Absent: systolic murmur, diastolic murmur, rubs, gallop, clicks Extremities exam: Present: normal inspection, full ROM, tenderness (Diffuse tenderness of the ankles) Neurological exam: Present: alert, oriented X3 Psychiatric exam: Present: normal affect, normal mood Skin exam: Present: warm, dry, normal color Course Vital Signs 04/11/24 04/11/24 00:05 01:47 Temperature 98.5 F Pulse Rate 118 H 93 Respiratory 18 18 Rate Blood Pressure 121/77 125/83 O2 Sat by Pulse 97 98 Oximetry Medical Decision Making - Medical Decision Making Was pt. sent in by a medical professional or institution (, PA, CAR WORKER, urgent care, hospital, or residential...) When possible be specific @ -No Did you speak to anyone other than the patient for history (EMS, parent, family, police, friend...)? What history was obtained from this source @ -No Did you review nursing and triage notes (agree or disagree)? Why? @ -I reviewed and agree with nursing and triage notes Were old charts reviewed (outside hosp., previous admission, EMS record, old EKG, old radiological studies, urgent care reports/EKG's, residential records)? Report findings @ -No old charts were reviewed Differential Diagnosis (chest pain, altered mental status, abdominal pain women, abdominal pain men, vaginal bleeding, weakness, fever, dyspnea, syncope, headache, dizziness, GI bleed, back pain, seizure, CVA, palpatations, mental health, musculoskeletal)? @ -Differential Musculoskeletal Muscular strain, contusion, ligament sprain, fracture, arthritis, septic arthritis, bursitis, cellulitis, muscle spasm, nerve compression, DVT, arterial occlusion, herpes zoster, electrolyte abnormality, tumor.... This is not meant to be in all inclusive list EKG interpreted by me (3pts min.). @ -As above X-rays interpreted by me (1pt min.). @ -None done CT interpreted by me (1pt min.). @ -None done U/S interpreted by me (1pt. min.). @ -None done What testing was considered but not performed or refused? (CT, X-rays, U/S, labs)? Why? @ -None What meds were considered but not given or refused? Why? @ -None Did you discuss the management of the patient with other professionals ( professionals i.e. , PA, CAR WORKER, lab, RT, psych nurse, social work supervisor, label cutter, teacher, staff command and control officer, gearcase assembler)? Give summary @ -No Was smoking cessation discussed for >3mins.? @ -No Was critical care preformed (if so, how long)? @ -No Were there social determinants of health that impacted care today? How? (Homelessness, low income, unemployed, alcoholism, drug addiction, transportation, low edu. Level, literacy, decrease access to med. care, [facility], rehab)? @ -No Was there de-escalation of care discussed even if they declined (Discuss DNR or withdrawal of care, Hospice)? DNR status @ -No What co-morbidities impacted this encounter? (DM, HTN, Smoking, COPD, CAD, Cancer, CVA, ARF, Chemo, Hep., AIDS, mental health diagnosis, sleep apnea, morbid obesity)? @ -None Was patient admitted / discharged? Hospital course, mention meds given and route, prescriptions, significant lab abnormalities, going to OR and other pertinent info. @ -33-year-old male presenting with chief complaint of bilateral ankle pain. No injury. Patient is homeless and has been walking a lot more seeking fdc. Patient is neurovascularly intact with no obvious deformity or abnormality on exam. Patient is educated on today's findings. Given that the patient has had no injury I believe x-ray would be minimally helpful at this time. Patient is provided with medication for comfort and is instructed to follow-up with PCP, suggestion provided. Follow-up with PCP. Report back to ER with any new or worsening symptoms. Discussed return parameters and answered all questions. Patient conveyed verbal understanding and agreed to the plan. I discussed this case in detail with my attending Dr. Roblero Undiagnosed new problem with uncertain prognosis? @ -No Drug Therapy requiring intensive monitoring for toxicity (Heparin, Nitro, Insulin, Cardizem)? @ -No Were any procedures done? @ -No Diagnosis/symptom? @ -Ankle pain Acute, or Chronic, or Acute on Chronic? @ -Acute Uncomplicated (without systemic symptoms) or Complicated (systemic symptoms)? @ -Uncomplicated Side effects of treatment? @ -No Exacerbation, Progression, or Severe Exacerbation? @ -No Poses a threat to life or bodily function? How? (Chest pain, [place], [place], pneumonia, PE, COPD, DKA, ARF, appy, cholecystitis, CVA, Diverticulitis, Homicidal, Suicidal, threat to staff... and all critical care pts) @ -Low likelihood Disposition Clinical Impression: Ankle pain Disposition: HOME SELF-CARE Condition: Good Instructions (If sedation given, give patient instructions): Arthralgia (ED) Additional Instructions: Follow-up with PCP. Report back to ER with any new or worsening symptoms. Is patient prescribed a controlled substance at d/c from ED?: No Referrals: None,Stated [Primary Care Provider] - 1-2 days Becky Cristobal MD [STAFF PHYSICIAN] - 1-2 days Time of Disposition: 01:41
[2024-04-11 01:48] VITALS: BP 125/83; PULSE 93
== END 2024-04-11 01:49 | disposition home or self-care (01) ==
LOC: EC 23:30
DX: M25.572 Pain in left ankle and joints of left foot (principal); M25.571 Pain in right ankle and joints of right foot; F17.290 Nicotine dependence, other tobacco product, uncomplicated
CPT/HCPCS: 99283; 96372 ×2; J1100; J1885

== ENCOUNTER 2024-04-15 14:36 | Emergency (ER) | payer OTHER ==
[2024-04-15 14:40] VITALS: TEMP 97.6
--- NOTE | 2024-04-15 15:36 | ED ---
General Adult HPI - General Chief complaint: Extremity Problem,Nontraumatic Stated complaint: rt ankle swelling Time Seen by Provider: 04/15/24 15:14 Source: patient Mode of arrival: ambulatory Limitations: no limitations - History of Present Illness Initial comments: Dictation was produced using [employer] dictation software. please excuse any grammatical, word or spelling errors. Chief Complaint: 33-year-old male presents with right ankle stiffness History of Present Illness: Patient 33-year-old male he is homeless he is here for right ankle stiffness. States that while he was walking he started to feel as if his ankle felt stiff. He is looking for retirement in [place]. States that there is no shelters there which is why he came up to our area looking for homeless retirement to stay at. Patient Nu[place] any trauma. Denies any injury. The ROS documented in this emergency department record has been reviewed and confirmed by me. Those systems with pertinent positive or negative responses have been documented in the HPI. All other systems are other negative and/or noncontributory. - Related Data Home Medications Medication Instructions Recorded Confirmed Testosterone Cypionate 150 mg IM Q14D 04/18/22 10/13/23 [Depo-Testosterone] ALPRAZolam [Xanax] 1.5 mg PO BID PRN 10/11/23 10/13/23 ARIPiprazole [Abilify] 5 mg PO DAILY 10/11/23 10/13/23 Cholecalciferol [Vitamin D3 (25 50 mcg PO DAILY 10/11/23 10/13/23 Mcg = 1000 Iu)] Cyclobenzaprine [Flexeril] 10 mg PO TID 10/11/23 10/13/23 Dextroamphetamine/Amphetamine 20 mg PO DAILY 10/11/23 10/13/23 [Adderall Xr 20 mg Capsule] Gabapentin [Neurontin] 600 mg PO TID 10/11/23 10/13/23 Sertraline [Zoloft] 100 mg PO DAILY 10/11/23 10/13/23 Previous Rx's Medication Instructions Recorded Acetaminophen Tab [Tylenol] 650 mg PO Q6HR PRN tab 10/12/23 Ibuprofen [Motrin] 400 mg PO Q6HR PRN tab 10/12/23 Metoprolol Succinate (ER) [Toprol 75 mg PO DAILY 30 Days #45 tab 10/12/23 XL] Albuterol Sulfate [Albuterol 2 puff PO Q6H PRN #8.5 gm 02/11/24 Sulfate Hfa] predniSONE [Deltasone] 60 mg PO DAILY 5 Days #15 tab 02/11/24 Allergies Allergy/AdvReac Type Severity Reaction Status Date / Time No Known Allergies Allergy Verified 04/11/24 00:06 Review of Systems ROS Statement: Those systems with pertinent positive or pertinent negative responses have been documented in the HPI. ROS Other: All systems not noted in ROS Statement are negative. Past Medical History Past Medical History: Hypertension Additional Past Medical History / Comment(s): Severe anxiety, migraines, chronic back pain, difficulty with focusing attention. COVID 01/20/23, History of Any Multi-Drug Resistant Organisms: None Reported Past Surgical History: Orthopedic Surgery Additional Past Surgical History / Comment(s): Left wrist open reduction internal fixation, lipoma removed from right posterior shoulder. Past Anesthesia/Blood Transfusion Reactions: No Reported Reaction Past Psychological History: ADD/ADHD, Anxiety, Depression, Schizophrenia Smoking Status: Vaper Past Alcohol Use History: None Reported Past Drug Use History: Prescription Drug Abuse - Past Family History Father Family Medical History: Cancer, CVA/TIA, Myocardial Infarction (NM) Additional Family Medical History / Comment(s): Father is alive at age 58. Patient states he has a rare cancer and undergoing chemotherapy. Mother Family Medical History: Coronary Artery Disease (CAD), Hypertension, Syncope Additional Family Medical History / Comment(s): Mother is alive at age 54 and also has history of anxiety and depression. Sister(s) History Unknown: Yes Family Medical History: Hyperlipidemia General Exam - General Exam Comments Initial Comments: General: Well-appearing, nontoxic, no acute distress. Head: Normocephalic, atraumatic Eyes: PERRLA, EOMI ENT: Airway patent Chest: Nonlabored breathing Skin: No visual rash, normal skin tone Neuro: Alert and oriented 3 Musculoskeletal: No gross abnormalities Right lower extremity: No gross deformities. Patient ambulatory without complications Limitations: no limitations Course Vital Signs 04/15/24 14:38 Temperature 97.6 F Pulse Rate 112 H Respiratory 18 Rate Blood Pressure 129/78 O2 Sat by Pulse 96 Oximetry Medical Decision Making - Medical Decision Making Was pt. sent in by a medical professional or institution (, PA, SCORER HELPER, urgent care, hospital, or longterm...) When possible be specific @ -No Did you speak to anyone other than the patient for history (EMS, parent, family, police, friend...)? What history was obtained from this source @ -No Did you review nursing and triage notes (agree or disagree)? Why? @ -I reviewed and agree with nursing and triage notes Were old charts reviewed (outside hosp., previous admission, EMS record, old EKG, old radiological studies, urgent care reports/EKG's, longterm records)? Report findings @ -No old charts were reviewed Differential Diagnosis (chest pain, altered mental status, abdominal pain women, abdominal pain men, vaginal bleeding, musculoskeletal, weakness, fever, dyspnea, syncope, headache, dizziness, GI bleed, back pain, seizure, CVA, palpatations, mental health)? @ -Not applicable EKG interpreted by me (3pts min.). @ -None done X-rays interpreted by me (1pt min.). @ -None done CT interpreted by me (1pt min.). @ -None done U/S interpreted by me (1pt. min.). @ -None done What testing was considered but not performed or refused? (CT, X-rays, U/S, labs)? Why? @ -None What meds were considered but not given or refused? Why? @ -None Was smoking cessation discussed for >3mins.? @ -No Were there social determinants of health that impacted care today? How? (Homelessness, low income, unemployed, alcoholism, drug addiction, transportation, low edu. Level, literacy, decrease access to med. care, residential, rehab)? @ -Homelessness Was there de-escalation of care discussed even if they declined (Discuss DNR or withdrawal of care, Hospice)? DNR status @ -No What co-morbidities impacted this encounter? (DM, HTN, Smoking, COPD, CAD, Cancer, CVA, ARF, Chemo, Hep., AIDS, mental health diagnosis, sleep apnea, morbid obesity)? @ -None Was patient admitted / discharged? Hospital course, mention meds given and route, prescriptions, significant lab abnormalities, going to OR and other pertinent info. @ -33-year-old homeless male presents to the emergency department right ankle stiffness. Vital signs stable. Physical examination is benign. Right ankle is normal. Patient ambulatory with no complications. X-ray is nonacute. Patient discharged Did you discuss the management of the patient with other professionals (professionals i.e. , PA, SCORER HELPER, lab, RT, psych nurse, professor of social work, computer system specialist, teacher, public affairs officer, trimming caser)? Give summary @ -No Was critical care preformed (if so, how long)? @ -No Undiagnosed new problem with uncertain prognosis? @ -No Drug Therapy requiring intensive monitoring for toxicity (Heparin, Nitro, Insulin, Cardizem)? @ -No Were any procedures done? @ -No Diagnosis/symptom? Acute, or Chronic, or Acute on Chronic? Uncomplicated (without systemic symptoms) or Complicated (systemic symptoms)? @ -Right ankle stiffness Side effects of treatment? @ -No Exacerbation, Progression, or Severe Exacerbation? @ -No Poses a threat to life or bodily function? How? (Chest pain, USA, NM, pneumonia, PE, COPD, DKA, ARF, appy, cholecystitis, CVA, Diverticulitis, Homicidal, Suicidal, threat to staff... and all critical care pts) @ -No Disposition Clinical Impression: Ankle arthralgia Disposition: HOME SELF-CARE Condition: Good Instructions (If sedation given, give patient instructions): Arthralgia (ED) Is patient prescribed a controlled substance at d/c from ED?: No Referrals: Becky Cristobal MD [Primary Care Provider] - 1-2 days Time of Disposition: 15:36
--- NOTE | 2024-04-15 15:53 | XR ---
EXAMINATION TYPE: XR ankle complete RT DATE OF EXAM: 04/15/2024 3:40 PM COMPARISON: None. CLINICAL INDICATION: Male, 33 years old with history of ankle stiffness, inflammation right ankle TECHNIQUE: 3 view(s) obtained. FINDINGS: Ankle mortise is intact. Soft tissue swelling over the lateral malleolus. No acute fractures or dislo cations evident. Follow up exams can be performed 7-10 days from acute trauma for continued pain. IMPRESSION: 1. No acute osseous abnormality. 2. Mild soft tissue swelling lateral malleolus. [facility], Workstation: [facility], 04/15/2024 3:50 PM
[2024-04-15 16:51] VITALS: BP 120/74; PULSE 74; RESP 16
== END 2024-04-15 16:51 | disposition home or self-care (01) ==
LOC: EC 14:36
DX: M25.571 Pain in right ankle and joints of right foot (principal); F17.290 Nicotine dependence, other tobacco product, uncomplicated
CPT/HCPCS: 99283

== ENCOUNTER 2024-04-18 21:02 | Emergency (ER) | payer OTHER ==
[2024-04-18 21:07] VITALS: BP 146/86; PULSE 100; RESP 16; TEMP 97.6
--- NOTE | 2024-04-18 21:39 | ED ---
Extremity Problem HPI - General Chief complaint: Extremity Problem,Nontraumatic Stated complaint: R Ankle Blood Clot Time Seen by Provider: 04/18/24 21:15 Source: patient Mode of arrival: ambulatory Limitations: no limitations - History of Present Illness Initial comments: Is a 34-year-old man who complains of having right lower leg pain. The patient states that this is been going on for a number of days. He states he was seen at [facility] approximately 3 days ago, had an ultrasound of his right leg and was told that he had a blood clot. The patient states he was not given blood thinning medicines. He states he was given an antibiotic. Patient presents today because she is still having pain and has not decreased. The patient has no chest symptoms, no dyspnea, cough, hemoptysis, palpitations or any other symptoms. MD Complaint: extremity pain, extremity swelling Onset/Timin -: days(s) Location: right, lower extremity -: Yes myalgia Quality: burning, aching Consistency: constant Improves with: nothing Worsens with: walking Associated Symptoms: denies other symptoms - Related Data Home Medications Medication Instructions Recorded Confirmed Testosterone Cypionate 150 mg IM Q14D 04/18/22 10/13/23 [Depo-Testosterone] ALPRAZolam [Xanax] 1.5 mg PO BID PRN 10/11/23 10/13/23 ARIPiprazole [Abilify] 5 mg PO DAILY 10/11/23 10/13/23 Cholecalciferol [Vitamin D3 (25 50 mcg PO DAILY 10/11/23 10/13/23 Mcg = 1000 Iu)] Cyclobenzaprine [Flexeril] 10 mg PO TID 10/11/23 10/13/23 Dextroamphetamine/Amphetamine 20 mg PO DAILY 10/11/23 10/13/23 [Adderall Xr 20 mg Capsule] Gabapentin [Neurontin] 600 mg PO TID 10/11/23 10/13/23 Sertraline [Zoloft] 100 mg PO DAILY 10/11/23 10/13/23 Previous Rx's Medication Instructions Recorded Acetaminophen Tab [Tylenol] 650 mg PO Q6HR PRN tab 10/12/23 Ibuprofen [Motrin] 400 mg PO Q6HR PRN tab 10/12/23 Metoprolol Succinate (ER) [Toprol 75 mg PO DAILY 30 Days #45 tab 10/12/23 XL] Albuterol Sulfate [Albuterol 2 puff PO Q6H PRN #8.5 gm 02/11/24 Sulfate Hfa] predniSONE [Deltasone] 60 mg PO DAILY 5 Days #15 tab 02/11/24 Ibuprofen [Motrin] 600 mg PO Q8HR PRN #20 tab 04/19/24 Allergies Allergy/AdvReac Type Severity Reaction Status Date / Time No Known Allergies Allergy Verified 04/18/24 21:05 Review of Systems ROS Statement: Those systems with pertinent positive or pertinent negative responses have been documented in the HPI. ROS Other: All systems not noted in ROS Statement are negative. Constitutional: Denies: fever, chills, weakness Respiratory: Denies: cough, dyspnea, hemoptysis Cardiovascular: Denies: chest pain, palpitations, syncope Gastrointestinal: Denies: abdominal pain Musculoskeletal: Reports: as per HPI, myalgia. Denies: back pain, arthralgia Skin: Denies: rash, lesions Neurological: Denies: weakness, numbness, paresthesias Past Medical History Past Medical History: Hypertension Additional Past Medical History / Comment(s): Severe anxiety, migraines, chronic back pain, difficulty with focusing attention. COVID 01/20/23, History of Any Multi-Drug Resistant Organisms: None Reported Past Surgical History: Orthopedic Surgery Additional Past Surgical History / Comment(s): Left wrist open reduction internal fixation, lipoma removed from right posterior shoulder. Past Anesthesia/Blood Transfusion Reactions: No Reported Reaction Past Psychological History: ADD/ADHD, Anxiety, Depression, Schizophrenia Smoking Status: Vaper Past Alcohol Use History: None Reported Past Drug Use History: Prescription Drug Abuse - Past Family History Father Family Medical History: Cancer, CVA/TIA, Myocardial Infarction (SD) Additional Family Medical History / Comment(s): Father is alive at age 58. Patient states he has a rare cancer and undergoing chemotherapy. Mother Family Medical History: Coronary Artery Disease (CAD), Hypertension, Syncope Additional Family Medical History / Comment(s): Mother is alive at age 54 and also has history of anxiety and depression. Sister(s) History Unknown: Yes Family Medical History: Hyperlipidemia General Exam Limitations: no limitations General appearance: alert, in no apparent distress Head exam: Present: atraumatic, normocephalic Respiratory exam: Present: normal lung sounds bilaterally. Absent: respiratory distress, wheezes, rales, rhonchi, stridor, accessory muscle use Cardiovascular Exam: Present: regular rate, normal rhythm, normal heart sounds. Absent: systolic murmur, diastolic murmur, rubs, gallop GI/Abdominal exam: Present: soft. Absent: distended, tenderness, guarding Extremities exam: Present: normal inspection, full ROM, tenderness (Patient does have contusion to the anterolateral aspect right leg at proximal one third level of the tibia ), normal capillary refill. Absent: pedal edema, joint swelling, calf tenderness Neurological exam: Present: alert. Absent: motor sensory deficit Skin exam: Present: warm, dry, intact, petechiae (as above). Absent: rash Course Vital Signs 04/18/24 21:05 Temperature 97.6 F Pulse Rate 100 Respiratory 16 Rate Blood Pressure 146/86 O2 Sat by Pulse 97 Oximetry Medical Decision Making - Medical Decision Making Was pt. sent in by a medical professional or institution (, [facility], FAMILY RESOURCE COORDINATOR, urgent care, hospital, or snf...) When possible be specific @ -[No] Did you speak to anyone other than the patient for history (EMS, parent, family, police, friend...)? What history was obtained from this source @ -[No] Did you review nursing and triage notes (agree or disagree)? Why? @ -[I reviewed and agree with nursing and triage notes] Were old charts reviewed (outside hosp., previous admission, EMS record, old EKG, old radiological studies, urgent care reports/EKG's, snf records)? Report findings @ -[No old charts were reviewed] Differential Diagnosis (chest pain, altered mental status, abdominal pain women, abdominal pain men, vaginal bleeding, weakness, fever, dyspnea, syncope, hea dache, dizziness, GI bleed, back pain, seizure, CVA, palpatations, mental health, musculoskeletal)? @ -[Differential Musculoskeletal Muscular strain, contusion, ligament sprain, fracture, arthritis, septic arthritis, bursitis, cellulitis, muscle spasm, nerve compression, DVT, arterial occlusion, herpes zoster, electrolyte abnormality, tumor.... This is not meant to be in all inclusive list EKG interpreted by me (3pts min.). @ -[As above] X-rays interpreted by me (1pt min.). @ -[None done] CT interpreted by me (1pt min.). @ -[None done] U/S interpreted by me (1pt. min.). @ -[None done] What testing was considered but not performed or refused? (CT, X-rays, U/S, labs)? Why? @ -[None] What meds were considered but not given or refused? Why? @ -[None] Did you discuss the management of the patient with other professionals (professionals i.e. , PA, FAMILY RESOURCE COORDINATOR, lab, RT, psych nurse, social science manager, quality improvement analyst, teacher, bank operations officer, caser)? Give summary @ -[No] Was smoking cessation discussed for >3mins.? @ -[No] Was critical care preformed (if so, how long)? @ -[No] Were there social determinants of health that impacted care today? How? (Homelessness, low income, unemployed, alcoholism, drug addiction, transportation, low edu. Level, literacy, decrease access to med. care, skilled nursing, rehab)? @ -[No] Was there de-escalation of care discussed even if they declined (Discuss DNR or withdrawal of care, Hospice)? DNR status @ -[No] What co-morbidities impacted this encounter? (DM, HTN, Smoking, COPD, CAD, Cancer, CVA, ARF, Chemo, Hep., AIDS, mental health diagnosis, sleep apnea, morbid obesity)? @ -[None] Was patient admitted / discharged? Hospital course, mention meds given and route, prescriptions, significant lab abnormalities, going to OR and other pertinent info. @ -[Patient is a 34-year-old man presenting to have evaluation of lower extremity pain. The patient did have study at [facility] and we were able to obtain the study though there was considerable delay. The patient had duplex Doppler that was negative for DVT. Discussed with the patient that he does not require further blood thinner treatment. The patient to have conservative treatments, anti-inflammatories, ice, elevation. Undiagnosed new problem with uncertain prognosis? @ -[No] Drug Therapy requiring intensive monitoring for toxicity (Heparin, Nitro, Insulin, Cardizem)? @ -[No] Were any procedures done? @ -[No] Diagnosis/symptom? @ -[Lower leg contusion Acute, or Chronic, or Acute on Chronic? @ -[Acute Uncomplicated (without systemic symptoms) or Complicated (systemic symptoms)? @ -[Uncomplicated Side effects of treatment? @ -[No] Exacerbation, Progression, or Severe Exacerbation? @ -[No] Poses a threat to life or bodily function? How? (Chest pain, USA, SD, pneumonia, PE, COPD, DKA, ARF, appy, cholecystitis, CVA, Diverticulitis, Homicidal, Suicidal, threat to staff... and all critical care pts) @ -[No] Disposition Clinical Impression: Contusion Disposition: HOME SELF-CARE Condition: Good Instructions (If sedation given, give patient instructions): Contusion in Adults (ED) Prescriptions: Ibuprofen [Motrin] 600 mg PO Q8HR PRN #20 tab PRN Reason: Pain Is patient prescribed a controlled substance at d/c from ED?: No Referrals: Becky Cristobal MD [Primary Care Provider] - 1-2 days
[2024-04-19] MEDS: IBUPROFEN 600 MG TAB PO STA (03:39)
== END 2024-04-19 03:39 | disposition home or self-care (01) ==
LOC: EC 21:02
DX: S80.11XA Contusion of right lower leg, initial encounter (principal); F17.290 Nicotine dependence, other tobacco product, uncomplicated; X58.XXXA Exposure to other specified factors, initial encounter
CPT/HCPCS: 99283

== ENCOUNTER 2024-07-28 08:23 | Inpatient (IN) | payer MEDICAID, OTHER ==
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
[2024-07-28] MEDS ORDERED: MAGNESIUM HYDROXIDE 2,400 MG/30 ML CUP PO PRN (12:12)
[2024-07-28] MEDS ORDERED: HALOPERIDOL LACTATE 5 MG/ML 1 ML VIAL IM PRN (12:12)
[2024-07-28] MEDS ORDERED: IBUPROFEN 600 MG TAB PO PRN (12:12)
[2024-07-28] MEDS ORDERED: haloperidoL 5 MG TAB PO PRN (12:12)
[2024-07-28] MEDS ORDERED: ACETAMINOPHEN TAB 325 MG TAB PO PRN (12:12)
[2024-07-28] MEDS ORDERED: MAG HYDROX/AL HYDROX/SIMETH 355 ML BOTTLE PO PRN (12:12)
[2024-07-28] MEDS ORDERED: LORazepam 2 MG/ML INJ IM PRN (12:12)
[2024-07-28] MEDS ORDERED: LORazepam 1 MG TAB PO PRN (12:12)
[2024-07-28] MEDS ORDERED: QUEtiapine 100 MG TAB PO PRN (12:15)
--- NOTE | 2024-07-28 20:32 | CONS ---
CONSULTATION REASON FOR CONSULTATION: Advice regarding hypertension and other medical issues, requested by Psych. HISTORY OF PRESENT ILLNESS: This is a 34-year-old gentleman with a past medical history of hypertension and other medical issues, admitted for evaluation of psychosis. The patient is complaining of pain and some swelling of the medial part of the left heel in a part. No chest pain. No palpitations. No fever. PAST MEDICAL HISTORY: History of hypertension, ADD, ADHD, anxiety, depression. Rest of the history and rest of the chart are also reviewed. HOME MEDICATIONS: None. ALLERGIES: None. FAMILY HISTORY: History of CVA, myocardial infarction in the family. SOCIAL HISTORY: History of vaping and prescription drug abuse. REVIEW OF SYSTEMS: A 14-point review of systems is negative except as mentioned earlier. PHYSICAL EXAMINATION: VITAL SIGNS: Pulse is 110, blood pressure 122/82, respirations 20. HEENT: Conjunctivae normal. CARDIOVASCULAR: S1, S2. RESPIRATIONS: Breath sounds are diminished at the bases. ABDOMEN: Soft, nontender. LEGS: No edema. Minimal tenderness in the medial part of the left foot present. No swelling appreciated. Not much erythema also noted. NERVOUS SYSTEM: No focal deficits. Cranial nerves normal. LABORATORY DATA: Awaited. COVID-19 is negative. ASSESSMENT: 1. Left foot pain, possibly soft tissue pain. 2. Hypertension. 3. Severe anxiety. 4. History of migraines. 5. Psychosis, schizophrenia. RECOMMENDATIONS AND DISCUSSION: This is a 34-year-old gentleman, who presented with psychiatric evaluations at this time. I recommend to continue with symptomatic treatment. The patient has some minimal tenderness, but not much swelling or physical abnormalities noted. I recommended close followup with the primary physician and we will be happy to review any abnormal labs. MMODL / IJN: [id number] /
[2024-07-29] MEDS: NICOTINE 14MG/24HR PATCH TRANSDERM SCH (09:57)
[2024-07-29 12:06] LABS: Basophils # (A) 0.1 k/uL (0-0.2); Basophils % (A) 1 %; Eosinophils # (A) 0.2 k/uL (0-0.7); Eosinophils % (A) 3 %; HCT 49.6 % (39.0-53.0); HGB 15.7 gm/dL (13.0-17.5); Lymphocytes # (A) 1.9 k/uL (1.0-4.8); Lymphocytes % (A) 24 %; MCH 28.2 pg (25.0-35.0); MCHC 31.7 g/dL (31.0-37.0); MCV 89.1 fL (80.0-100.0); Mean Platelet Volume 8.7; Monocytes # (A) 0.5 k/uL (0-1.0); Monocytes % (A) 7 %; Neutrophils # (A) 4.9 k/uL (1.3-7.7); Neutrophils % (A) 64 %; Platelet Count 252 k/uL (150-450); RBC 5.57 m/uL (4.30-5.90); RDW 13.6 % (11.5-15.5); WBC 7.7 k/uL (3.8-10.6)
[2024-07-29 12:41] LABS: ALT 19 U/L (4-49); AST 20 U/L (17-59); African American GFR (CKD) >90 (>60 ml/min/1.73 sqM); Albumin 4.7 g/dL (3.5-5.0); Alkaline Phosphatase 72 U/L (38-126); Anion Gap 10 mmol/L; Blood Urea Nitrogen 15 mg/dL (9-20); Calcium 9.6 mg/dL (8.4-10.2); Carbon Dioxide 30 mmol/L (22-30); Chloride 100 mmol/L (98-107); Glucose 84 mg/dL (74-99); Non-African American GFR(CKD) >90 (>60 ml/min/1.73 sqM); Potassium 4.7 mmol/L (3.5-5.1); Sodium 140 mmol/L (137-145); Total Bilirubin 0.6 mg/dL (0.2-1.3); Total Protein 7.4 g/dL (6.3-8.2)
[2024-07-29] MEDS ORDERED: hydrOXYzine pamoate 25 MG CAP PO PRN (15:47)
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
[2024-07-29] MEDS: DULoxetine HCL 30 MG CAPSULE.DR PO SCH (17:00)
[2024-07-29] MEDS: CHOLECALCIFEROL 125 MCG (5000 IU) TABLET PO SCH (17:00)
[2024-07-29 19:53] LABS: Chol/HDL Ratio 3.93 Ratio; LDL Cholesterol,Calculated 65.2 mg/dL (0.0-131.0)
[2024-07-29] MEDS: PALIPERIDONE 3 MG TAB.ER.24 PO SCH (21:56)
[2024-07-29] MEDS: MIRTAZAPINE 15 MG TAB PO SCH (21:56)
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
--- NOTE | 2024-07-31 10:05 | P.PN ---
Progress Note - Text Progress Note Date: 07/31/24 Interval History: Patient was seen today wandering the hallways after speaking with the environmental attorney. Patient claimed that he did not sign any deferral paperwork. He apparently requested a jury trial. He continues to display very poor insight poor judgment. He was upset with mortgage underwriter today and repeatedly claimed that "I am an inmate I do not need to be here". He claims that the only reason that he came to the hospital was for a "psychiatric evaluation" and then he was supposed to return back to snf. He claims that "I do not want to be here at all". Continues to refuse medications, does not believe he has a mental illness does not believe any treatment. He claims that he does not need legal representation, he threw the environmental attorney's card in the trash. Claims that he slept fairly he has been eating well, not participating in groups. Denies any auditory or visual hallucinations denies any suicidal homicidal ideations intent or plan. MENTAL STATUS EXAM: General Appearance: Patient appears to be stated age is alert, directable, and attempts to cooperate. Patient appears to have fair hygiene and grooming. Longer hair, several tattoos. Behavior: Patient is seated without any agitated behavior. Eye contact is appropriate. Bizarre behavior at times, argumentative Speech: Patient's speech is fluent and nonpressured. [place] and monotone Mood/Affect: Patient reports their mood is "just fine" affect is incongruent and appears to be constricted, irritated Suicidality/Homicidality: Patient denies having any homicidal ideation intent or plan. Denies any suicidal ideation Perceptions: Patient denies any visual hallucinations and denies any auditory hallucinations Though content/process: Illogical, loose associations. Bizarre statements. delusional Memory and concentration: AOX3, grossly intact for the purposes of this session Judgment and insight: Chronically poor IMPRESSIONS: Schizoaffective disorder Anxiety disorder, unspecified Nicotine dependence History of benzodiazepine dependence Noncompliance with medication regimen Legal problems PLAN: -Patient is admitted under involuntary status to [facility] for stabilization of psychiatric symptoms and safety. Patient did not sign adult voluntary form or medication consent and is placed in patient's chart. -Medications : Cymbalta 30 mg by mouth daily for depression/anxiety, Invega 3 mg by mouth at bedtime for schizoaffective disorder, vistaril prn for anxiety, Remeron 15 mg nightly for sleep/anxiety/depression. Patient is refusing medications -Ativan and Haldol PRN for agitation/aggression -NRT - nicotine patch -SW on board for discharge planning. Encourage patient to participate in groups to work on coping skills. patient did not defer with environmental attorney, requested a jury trial. Patient will be a snf hold.
--- NOTE | 2024-08-01 12:15 | P.PN ---
Progress Note - Text Progress Note Date: 08/01/24 Interval History: Patient was seen today wandering the hallways after speaking with the disability attorney. Patient continues to have fairly poor insight poor judgment. He did take the medications last night. Continues to state that he feels he does not need medications and does not want them. He continues to have concerns about being in the hospital and believes that he needs to go to [facility]. He was fairly concrete today mildly more cooperative today with headline writer, less irritable. does not believe he has a mental illness does not believe any treatment. Claims that he slept fairly he has been eating well, not participating in groups. Denies any auditory or visual hallucinations denies any suicidal homicidal ideations intent or plan. MENTAL STATUS EXAM: General Appearance: Patient appears to be stated age is alert, directable, and attempts to cooperate. Patient appears to have fair hygiene and grooming. Longer hair, several tattoos. Behavior: Patient is seated without any agitated behavior. Eye contact is appropriate. less argumentative Speech: Patient's speech is fluent and nonpressured. [place] and monotone Mood/Affect: Patient reports their mood is "fine" affect is incongruent and appears to be constricted Suicidality/Homicidality: Patient denies having any homicidal ideation intent or plan. Denies any suicidal ideation Perceptions: Patient denies any visual hallucinations and denies any auditory hallucinations Though content/process: More logical today. Bizarre statements. delusional, improving Memory and concentration: AOX3, grossly intact for the purposes of this session Judgment and insight: Chronically poor, improving mildly IMPRESSIONS: Schizoaffective disorder Anxiety disorder, unspecified Nicotine dependence History of benzodiazepine dependence Noncompliance with medication regimen Legal problems PLAN: -Patient is admitted under involuntary status to [facility] for stabilization of psychiatric symptoms and safety. Patient did not sign adult voluntary form or medication consent and is placed in patient's chart. -Medications : Cymbalta 30 mg by mouth daily for depression/anxiety, Invega 3 mg by mouth at bedtime for schizoaffective disorder, vistaril prn for anxiety, Remeron 15 mg nightly for sleep/anxiety/depression. -Ativan and Haldol PRN for agitation/aggression -NRT - nicotine patch -SW on board for discharge planning. Encourage patient to participate in groups to work on coping skills. patient did not defer with disability attorney, requested a jury trial. Patient will be a skilled nursing hold and will need [facility] prior to d/c
--- NOTE | 2024-08-02 16:39 | P.PN ---
Progress Note - Text Progress Note Date: 08/02/24 Interval history: Patient was seen [wandering the hallways] and was directable and agreeable to speak with telegraphic typewriter repairer. Patient is guarded on approach and states that his mood is "up ". He does not believe that he needs to be hospitalized and states that he has been trying to keep himself off of all medications and substances because of his "substance use disorder ". When asked about suicidal ideation, patient states that he believes suicidal ideation is a part of having substance use disorder but says this is more due to his risk-taking behaviors in the past. He denies passive or active suicidal ideation. He has been refusing medications and states that he does not believe he needs to be taking them because he wants to try to maintain his life without any psychoactive pharmaceuticals. Patient displays little insight into condition. He endorses good sleep and appetite. At this time patient denies any homicidal ideations intent or plan. Denies any Auditory or visual hallucinations. Mental status exam: General Appearance: [Patient appears to be stated age is alert, directable, and passively cooperative.] Behavior: [No agitated behavior. Patient is calm and directable]. Guarded Speech: Patient's speech is fluent and nonpressured. Hesitant Mood/Affect: Mood is "up", affect is congruent and constricted. Suicidality/Homicidality: Patient denies having any suicidal or homicidal ideation intent or plan. Perceptions: Patient denies any auditory or visual hallucinations. Though content/process: [There is no evidence of any delusional thought content and thought process is linear and goal-directed.] Memory and concentration: AOX3, grossly intact for the purposes of this session Judgment and insight: improving mildly Assessment/Plan: Continue with current diagnosis. Patient continues to meet criteria for inpatient psychiatric admission for symptom stabilization and safety.[Patient will be maintained on current psychotropic medication regimen.] Monitor for medication compliance and for any psychotropic medication side effects. Will continue to monitor ongoing response to treatment. Encouraged participation in milieu.
--- NOTE | 2024-08-03 13:15 | P.PN ---
Progress Note - Text Progress Note Date: 08/03/24 Interval history: Patient was seen wandering the hallways and was directable and agreeable to s peak with policy writer. Patient continues to state that he does not believe he needs to be hospitalized. He says that since he has been having substance use issues, [facility] and shelter have been having "a grasp on me ". He continues to refuse medications and states that he does not want to try anything for his mental health. He acknowledges that this might result in using substances again and states that that is a chance he is willing to take. He says his mood is "same ". Patient continues to minimize circumstances leading to hospitalization and states that it was a simple verbal altercation. Patient displays little insight into condition. He endorses good sleep and appetite. At this time patient denies any homicidal ideations intent or plan. Denies any Auditory or visual hallucinations. Mental status exam: General Appearance: [Patient appears to be stated age is alert, directable, and passively cooperative.] Behavior: [No agitated behavior. Patient is calm and directable]. Guarded Speech: Patient's speech is fluent and nonpressured. Hesitant Mood/Affect: Mood is "same", affect is congruent and constricted. Suicidality/Homicidality: Patient denies having any suicidal or homicidal i deation intent or plan. Perceptions: Patient denies any auditory or visual hallucinations. Though content/process: some paranaoia. Minimizing. Memory and concentration: AOX3, grossly intact for the purposes of this session Judgment and insight: poor Assessment/Plan: Continue with current diagnosis. Patient continues to meet criteria for inpatient psychiatric admission for symptom stabilization and safety.[Patient will be maintained on current psychotropic medication regimen.] Monitor for medication compliance and for any psychotropic medication side effects. Will continue to monitor ongoing response to treatment. Encouraged participation in milieu.
--- NOTE | 2024-08-04 11:53 | P.PN ---
Progress Note - Text Progress Note Date: 08/04/24 Interval History: Patient was seen today playing a board game with another patient. He was agre eable to speak to speech writer today. Patient continues to have fairly poor insight poor judgment, was superficially cooperative with speech writer. Denied any issues over the weekend, claims that he is feeling "okay". Continues to refuse his medications. We spoke again about the court process. He was fairly concrete today mildly more cooperative today with speech writer, less irritable. Claims that he slept fairly he has been eating well, claims he has been going to groups. Denies any auditory or visual hallucinations denies any suicidal homicidal ideations intent or plan. MENTAL STATUS EXAM: General Appearance: Patient appears to be stated age is alert, directable, and attempts to cooperate. Patient appears to have fair hygiene and grooming. Longer hair, several tattoos. Behavior: Patient is seated without any agitated behavior. Eye contact is appropriate. More cooperative Speech: Patient's speech is fluent and nonpressured. [place] and monotone Mood/Affect: Patient reports their mood is "ok" affect is incongruent and appears to be constricted, improving mildly Suicidality/Homicidality: Patient denies having any homicidal ideation intent or plan. Denies any suicidal ideation Perceptions: Patient denies any visual hallucinations and denies any auditory hallucinations Though content/process: More logical today. Bizarre statements. delusional, improving Memory and concentration: AOX3, grossly intact for the purposes of this session Judgment and insight: Chronically poor, improving mildly IMPRESSIONS: Schizoaffective disorder Anxiety disorder, unspecified Nicotine dependence History of benzodiazepine dependence Noncompliance with medication regimen Legal problems PLAN: -Patient is admitted under involuntary status to MHU for stabilization of psychiatric symptoms and safety. Patient did not sign adult voluntary form or medication consent and is placed in patient's chart. -Medications : Cymbalta 30 mg by mouth daily for depression/anxiety, Invega 3 mg by mouth at bedtime for schizoaffective disorder, vistaril prn for anxiety, Remeron 15 mg nightly for sleep/anxiety/depression. -Ativan and Haldol PRN for agitation/aggression -NRT - nicotine patch -SW on board for discharge planning. Encourage patient to participate in groups to work on coping skills. patient did not defer with bush hog operator, requested a jury trial. Patient will be a senior care hold. possible d/c back to senior care if patient is stable and will wait on trial.
--- NOTE | 2024-08-05 10:30 | P.PN ---
Progress Note - Text Progress Note Date: 08/05/24 Interval History: Patient was seen today laying in his bed. According to nursing notes patient did not sleep much last night. He was agreeable to speak to newswriter today. Patient continues to have fairly poor insight poor judgment, however was fairly pleasant with newswriter today cooperative during interview. States that he is doing "all right" denies any depression or anxiety today. Was not endorsing any delusions or paranoia. Was less focused on discharge today. Continues to be refusing his medications. Claims that he is eating well, going to some groups. Has not heard anything back from the area sales manager about the jury trial. Denies any auditory or visual hallucinations denies any suicidal homicidal ideations intent or plan. MENTAL STATUS EXAM: General Appearance: Patient appears to be stated age is alert, directable, and attempts to cooperate. Patient appears to have fair hygiene and grooming. Longer hair, several tattoos. Behavior: Patient is seated without any agitated behavior. Eye contact is appropriate. More cooperative/somewhat superficial Speech: Patient's speech is fluent and nonpressured. [place] and monotone Mood/Affect: Patient reports their mood is "all right" affect is congruent and appears to be constricted, improving mildly Suicidality/Homicidality: Patient denies having any homicidal ideation intent or plan. Denies any suicidal ideation Perceptions: Patient denies any visual hallucinations and denies any auditory hallucinations Though content/process: More logical today. Not endorsing delusions or paranoia. Memory and concentration: AOX3, grossly intact for the purposes of this session Judgment and insight: Chronically poor, improving mildly IMPRESSIONS: Schizoaffective disorder Anxiety disorder, unspecified Nicotine dependence History of benzodiazepine dependence Noncompliance with medication regimen Legal problems PLAN: -Patient is admitted under involuntary status to MHU for stabilization of psychiatric symptoms and safety. Patient did not sign adult voluntary form or medication consent and is placed in patient's chart. -Medications : Cymbalta 30 mg by mouth daily for depression/anxiety, Invega 3 mg by mouth at bedtime for schizoaffective disorder, vistaril prn for anxiety, Remeron 15 mg nightly for sleep/anxiety/depression. Patient is refusing medications. -Ativan and Haldol PRN for agitation/aggression -NRT - nicotine patch -SW on board for discharge planning. Encourage patient to participate in groups to work on coping skills. patient did not defer with area sales manager, requested a jury trial. Patient will be a snf hold. possible d/c back to snf if patient is stable and will wait on trial, likely discharge tomorrow.
[2024-08-05 22:38] VITALS: RESP 16; TEMP 97.6
[2024-08-06 10:03] VITALS: BP 130/70; PULSE 69
--- NOTE | 2024-08-06 10:38 | P.DS ---
Providers Date of admission: 07/28/24 12:06 Expected date of discharge: 08/06/24 Attending physician: Alejo Birmingham MD Consults: 07/28/24 12:12 Consult Physician Routine Consulting Provider: [facility] Hospitalists Consult Reason/Comments: H&P and medical Do you want consulting provider notified?: Yes Primary care physician: Becky Cristobal - Discharge Diagnosis(es) (1) Schizoaffective disorder Current Visit: Yes Status: Acute Priority: High (2) Anxiety disorder Current Visit: Yes Status: Acute Priority: Medium (3) Nicotine dependence Current Visit: Yes Status: Acute Priority: Low (4) History of benzodiazepine use Current Visit: Yes Status: Acute Priority: Low (5) Non compliance w medication regimen Current Visit: Yes Status: Acute Priority: High (6) Legal problem Current Visit: Yes Status: Acute Priority: Medium Hospital Course: Admission HPI: Admission note was completed by Dr Birmingham "patient is a , on Social Security disability, 34-year-old male with a significant history of benzodiazepine dependence and is affective disorder, currently incarcerated in the long term. Patient presented to the hospital yesterday was brought in by correctional officers from local long term. Patient was evaluated by EPS bilingual social worker and according to note "Clinician met with [place] and two deputies in ER 12 for eval. Previous to eval Hilary TRUONG @ [facility] provided this collateral information. " Babak is in [facility] and has been off medications for several months. He continued to decompensate in our facility . He sends over 100 delusional kites (messages between cell mates) a day. He has escalated to being aggressive resulting in solitary confinement. He continues to threaten to rape deputies. He has zero insight and has not been tending to ADL's and intake has been greatly diminished. He has had the opportunity for being released from long term should he have consented to treatment however he has chosen not to the past 4 months. He no longer has a guardian or a treatment order. Cl presents calm and cooperative reporting they are in the ED due to a verbal altercation with other inmates that were intimidating Cl and "messing with things in my cell" Cl s tates " I asked them to stop but they wouldn't and the argument insued from there." Cl denies SI/HI/DARIN/DEL and does not address issues reported by socialworker from the long term. Cl does acknowledge being in MH court and not taking any medications but does not elaborate on rationale. Cl has been on previous court order and guardianship which have both ended. Deputies report similar observations as bilingual social worker has. Cl is also reported to be presenting much different now being in the ED. [place] states " We have had altercations with him recently and once he left the long term his entired demeanor changed." [place] [facility] also reports cl is under the impression that being admitted to [facility] will reduce their sentence for bahman." Patient was seen today by senior underwriter agreeable to speak in the office. Patient appeared to have disheveled hair, several tattoos, he was somewhat bizarre during interaction, attempting to cooperate. He was a fairly poor historian regarding why he came to the hospital. He claims that he was in "a verbal altercation" with inmates and also deputies in the long term. Claims that they believe that he needed a "psychiatric eval". Claims that he was moved several times to different cell blocks however continued to have difficulties with others. He was rambling at times, somewhat directable. Claims that people in long term "would not leave me alone". He was endorsing some paranoia towards others believing that they were "getting in my business too much". He claims that he has been off medications does not believe that he needs them at this time. He claims that he was "lashing out" and slamming things when he was in long term. Denies any mood swings at this time denies any irritability. Claims that he is having some anxiety mild depression. Claims that his sleep and appetite a re fair. At this time is denying any auditory or visual hallucinations denying any suicidal homicidal ideations intent or plan. Claims that he is sober from any recreational drugs including benzodiazepines and narcotics since he has been in long term since April 2024." Hospital course: Upon admission to the unit patient was admitted involuntarily on a petition and certificate and a second certificate was completed and faxed to the courts. Patient ended up opting to not signed deferral with assistant attorney general, requested a jury trial for mental health treatment order which has yet to be confirmed on the date. Patient was initially was bizarre, had very poor insight and judgment however with time and treatment patient got along well with other patients on the unit and followed unit protocol. Patient was not compliant with the medications and denied any side effects throughout hospital course. Patient was started on Cymbalta 30 mg daily for mood/anxiety, Invega p.o. 3 mg nightly for psychosis, Vistaril as needed for anxiety, Remeron 15 mg nightly for sleep/anxiety/mood. Patient was refusing the medications does not believe that he needs them. Patient spoke of his stressors and engaged in therapy both group/activity therapy. Patient was also seen by medical team for history and physical exam. Throughout the course of the hospitalization patient gradually improved with regards to mood, anxiety, psychosis, sleep and returned back to their baseline level of functioning. On the day of discharge patient denied any suicidal or homicidal ideations intent or plan denied any auditory or visual hallucinations. Patient endorsed wanting to live for their health and family. The patient denied any access to guns or weapons. Patient denied any paranoia and did not endorse any delusions. Patient does have a significant history of substance abuse and was counseled on abstaining from all substances including alcohol and marijuana. Patient elected to do outpatient substance use treatment program through their outpatient provider. Patient was also counseled on the medications and need for regular compliance and was encouraged to follow-up with their outpatient appointment for mental health and also for primary care. Patient will be discharged back to long term today and will await jury trial to be set. Patient appears to be back to his baseline psychiatrically however continues to have minimal insight and judgment. Mental status exam: General Appearance: Patient appears to be has tattoos on his arms, longer hair, stated age is alert, pleasant, and cooperative. Patient is in no acute distress and has improved hygiene and grooming Behavior: Patient is calmly seated without any agitated behavior. Speech: Patient's speech is fluent and nonpressured. Mood/Affect: Patient reports their mood is "good", affect is congruent Suicidality/Homicidality: Patient denies having any suicidal or homicidal ideation intent or plan. Perceptions: Patient denies any auditory or visual hallucinations. Though content/process: There is no evidence of any delusional thought content and thought process is linear and goal-directed. Memory and concentration: AOX3, grossly intact for the purposes of this session. Can spell "WORLD" backwards correctly. Judgment and insight: Chronically poor, however has improved with guarded prognosis Impression: Schizoaffective disorder anxiety disorder unspecified Nicotine dependence History of benzodiazepine use Noncompliance with medication regimen Legal problem Plan: -Continue with discharge today as patient has improved and stabilized p sychiatrically and is not currently an imminent threat to themself and/or others. Patient will remain at chronically elevated risk for harm to self and/or others due to their impulsivity and chronic mental health condition. -Continue medications: Cymbalta 30 mg daily for mood/anxiety, Invega p.o. 3 mg daily at bedtime for schizoaffective disorder. Vistaril as needed for anxiety, Remeron 15 mg nightly for sleep/mood/anxiety. -Patient was counseled on the need for medication compliance and appropriate follow-up at mental health and also primary care for medical issues. Patient verbalized understanding and agreed. -Social work to help coordinate patients discharge today as he will be discharged back to long term today to await jury trial. also to ensure safe home environment that guns/weapons are either removed from the home or locked away. Social work also to arrange for patients follow up appointments with [facility] for psychiatric care along with follow up with primary care provider. -Patient counseled on abstaining from recreational drugs and marijuana and alcohol. Was informed/educated on the adverse effects on their physical and mental health. Patient verbally agreed and understood. Patient was offered substance abuse treatment however declined at this time. -Patient was instructed to return to the hospital or seek immediate medical care if their psychiatric or medical symptoms do worsen or reoccur. Allergies Allergy/AdvReac Type Severity Reaction Status Date / Time No Known Allergies Allergy Verified 07/28/24 11:18 Laboratory Results WBC 7.7 k/uL (3.8-10.6) 07/29/24 11:08 RBC 5.57 m/uL (4.30-5.90) 07/29/24 11:08 Hgb 15.7 gm/dL (13.0-17.5) 07/29/24 11:08 Hct 49.6 % (39.0-53.0) 07/29/24 11:08 MCV 89.1 fL (80.0-100.0) 07/29/24 11:08 MCH 28.2 pg (25.0-35.0) 07/29/24 11:08 MCHC 31.7 g/dL (31.0-37.0) 07/29/24 11:08 RDW 13.6 % (11.5-15.5) 07/29/24 11:08 Plt Count 252 k/uL (150-450) 07/29/24 11:08 MPV 8.7 07/29/24 11:08 Neutrophils % 64 % 07/29/24 11:08 Lymphocytes % 24 % 07/29/24 11:08 Monocytes % 7 % 07/29/24 11:08 Eosinophils % 3 % 07/29/24 11:08 Basophils % 1 % 07/29/24 11:08 Neutrophils # 4.9 k/uL (1.3-7.7) 07/29/24 11:08 Lymphocytes # 1.9 k/uL (1.0-4.8) 07/29/24 11:08 Monocytes # 0.5 k/uL (0-1.0) 07/29/24 11:08 Eosinophils # 0.2 k/uL (0-0.7) 07/29/24 11:08 Basophils # 0.1 k/uL (0-0.2) 07/29/24 11:08 Sodium 140 mmol/L (137-145) 07/29/24 11:08 Potassium 4.7 mmol/L (3.5-5.1) 07/29/24 11:08 Chloride 100 mmol/L (98-107) 07/29/24 11:08 Carbon Dioxide 30 mmol/L (22-30) 07/29/24 11:08 Anion Gap 10 mmol/L 07/29/24 11:08 BUN 15 mg/dL (9-20) 07/29/24 11:08 Creatinine 0.87 mg/dL (0.66-1.25) 07/29/24 11:08 Est GFR (CKD-EPI)AfAm >90 (>60 ml/min/1.73 sqM) 07/29/24 11:08 Est GFR (CKD-EPI)NonAf >90 (>60 ml/min/1.73 sqM) 07/29/24 11:08 Glucose 84 mg/dL (74-99) 07/29/24 11:[address] Glu mg/dL 105 mg/dL 07/29/24 11:08 Hemoglobin A1c 5.3 % (<=6.0) 07/29/24 11:08 Calcium 9.6 mg/dL (8.4-10.2) 07/29/24 11:08 Total Bilirubin 0.6 mg/dL (0.2-1.3) 07/29/24 11:08 AST 20 U/L (17-59) 07/29/24 11:08 ALT 19 U/L (4-49) 07/29/24 11:08 Alkaline Phosphatase 72 U/L (38-126) 07/29/24 11:08 Total Protein 7.4 g/dL (6.3-8.2) 07/29/24 11:08 Albumin 4.7 g/dL (3.5-5.0) 07/29/24 11:08 Triglycerides 125.00 mg/dL (0.00-149.00) 07/29/24 11:08 Cholesterol 121.00 mg/dL (0.00-200.00) 07/29/24 11:08 LDL Cholesterol, Calc 65.2 mg/dL (0.0-131.0) 07/29/24 11:08 VLDL Cholesterol, Calc 25.00 mg/dL (5.00-40.00) 07/29/24 11:08 HDL Cholesterol 30.80 mg/dL (40.00-60.00) L 07/29/24 11:08 Cholesterol/HDL Ratio 3.93 Ratio 07/29/24 11:08 TSH 1.290 mIU/L (0.465-4.680) 07/29/24 11:08 SARS-CoV-2 (PCR) Not Detected (Not Detectd) 07/28/24 10:39 Vital Signs Temp 97.6 F 08/06/24 08:15 Pulse 69 08/06/24 08:15 Resp 16 08/06/24 08:15 BP 130/70 08/06/24 08:15 Pulse Ox 97 08/05/24 21:00 FiO2 Patient Condition at Discharge: Stable Plan - Discharge Summary Discharge Rx Participant: No New Discharge Prescriptions: New DULoxetine HCL [Cymbalta] 30 mg PO DAILY 30 Days #30 cap Paliperidone [Invega] 3 mg PO HS 30 Days #30 tab Mirtazapine [Remeron] 15 mg PO HS 30 Days #30 tab Acetaminophen Tab [Tylenol] 650 mg PO Q4HR PRN tab PRN Reason: Mild Pain (Scale 1 To 3) Cholecalciferol [Vitamin D3 (125 Mcg = 5000 Iu)] 125 mcg PO DAILY 30 Days #30 tab Discharge Medication List Acetaminophen Tab [Tylenol] 650 mg PO Q4HR PRN tab 08/06/24 [Rx] Cholecalciferol [Vitamin D3 (125 Mcg = 5000 Iu)] 125 mcg PO DAILY 30 Days #30 tab 08/06/24 [Rx] DULoxetine HCL [Cymbalta] 30 mg PO DAILY 30 Days #30 cap 08/06/24 [Rx] Mirtazapine [Remeron] 15 mg PO HS 30 Days #30 tab 08/06/24 [Rx] Paliperidone [Invega] 3 mg PO HS 30 Days #30 tab 08/06/24 [Rx] Follow up Appointment(s)/Referral(s): Care, Yes [Other] - 1 Week (08/06 @ 16:00 ) Becky Cristobal MD [Primary Care Provider] - 1-2 days Activity/Diet/Wound Care/Special Instructions: [facility] Discharge Info Avoid the use of street drugs and alcohol. Take all medications as prescribed. When you are in need of refills on your medications, please contact your outpatient medical provider and/or outpatient psychiatrist. Please go to your scheduled outpatient appointments for aftercare treatment. If symptoms return or become worse, call the crisis line at or and/or visit the nearest emergency room for assistance. [place] Suicide and Crisis Lifeline - call or text [phone] Discharge Disposition: DC/TRANSFER COURT/LAW
== END 2024-08-06 15:45 | DRG 761 ==
LOC: EC 08:23 → 3MHU 12:06
PROVIDERS: ADMIT Psychiatry & Neurology Psychiatry; ATTEND Psychiatry & Neurology Psychiatry
DX: F25.9 Schizoaffective disorder, unspecified (principal); F32.A Depression, unspecified; F41.9 Anxiety disorder, unspecified; F90.9 Attention-deficit hyperactivity disorder, unspecified type; F17.200 Nicotine dependence, unspecified, uncomplicated; I10 Essential (primary) hypertension; Z56.0 Unemployment, unspecified; Z65.3 Problems related to other legal circumstances; Z79.899 Other long term (current) drug therapy; Z91.148 Patient's other noncompliance with medication regimen for other reason; Z11.52 Encounter for screening for COVID-19
CPT/HCPCS: 80053; 80061; 82075; 83036; 84443; 85025; 87635; 99285

== ENCOUNTER 2024-11-13 15:42 | Inpatient (IN) | payer MEDICAID, OTHER ==
[2024-11-13 16:25] LABS: Basophils # (A) 0.05 10*3/uL (0.00-0.10); Basophils % (A) 0.5 %; Eosinophils # (A) 0.28 10*3/uL (0.04-0.35); Eosinophils % (A) 3.0 %; HCT 45.6 % (39.6-50.0); HGB 15.4 g/dL (13.0-17.0); Lymphocytes # (A) 1.74 10*3/uL (0.90-5.00); Lymphocytes % (A) 18.8 %; MCH 29.4 pg (27.0-32.0); MCHC 33.8 g/dL (32.0-37.0); MCV 87.2 fL (80.0-97.0); Monocytes # (A) 0.68 10*3/uL (0.20-1.00); Monocytes % (A) 7.3 %; Neutrophils # (A) 6.50 10*3/uL (1.80-7.70); Neutrophils % (A) 70.1 %; Platelet Count 282 10*3/uL (140-440); RBC 5.23 10*6/uL (4.40-5.60); RDW 12.8 % (11.5-14.5); WBC 9.28 10*3/uL (4.50-10.00)
--- NOTE | 2024-11-13 16:38 | ED ---
General Adult HPI - General Chief complaint: Overdose Stated complaint: Attempted Suicide/Possible overdose Time Seen by Provider: 11/13/24 16:30 Source: patient, RN notes reviewed, old records reviewed Mode of arrival: ambulatory Limitations: no limitations - History of Present Illness Initial comments: 34-year-old male with attempted suicide. Patient states he took a medication from the medicine cabinet that was not prescribed to him he believes it may have been prescribed to his mother. He is uncertain what medication this was. He is uncertain how many pills he took. He states they were capsules approximately 10. Possibly gabapentin. Patient is uncertain and states there is no one at home who can verify this medication. He denies physical symptoms. He states this was approximately 1 hour prior to arrival. Patient reports depression and suicidal ideation prior to attempt. - Related Data Home Medications Medication Instructions Recorded Confirmed Haloperidol Decanoate [Haldol D] 100 mg IM Q14D 11/13/24 11/13/24 lamoTRIgine [LaMICtal] See Taper PO DAILY 11/13/24 11/13/24 Allergies Allergy/AdvReac Type Severity Reaction Status Date / Time No Known Allergies Allergy Verified 11/13/24 16:57 Review of Systems ROS Statement: Those systems with pertinent positive or pertinent negative responses have been documented in the HPI. ROS Other: All systems not noted in ROS Statement are negative. Past Medical History Past Medical History: Hypertension Additional Past Medical History / Comment(s): Severe anxiety, migraines, chronic back pain, difficulty with focusing attention. COVID 01/20/23, History of Any Multi-Drug Resistant Organisms: None Reported Past Surgical History: Orthopedic Surgery Additional Past Surgical History / Comment(s): Left wrist open reduction internal fixation, lipoma removed from right posterior shoulder. Past Anesthesia/Blood Transfusion Reactions: No Reported Reaction Past Psychological History: ADD/ADHD, Anxiety, Depression, Schizophrenia Smoking Status: Former smoker Past Alcohol Use History: None Reported Past Drug Use History: None Reported - Past Family History Father Family Medical History: Cancer, CVA/TIA, Myocardial Infarction (NV) Additional Family Medical History / Comment(s): Father is alive at age 58. Patient states he has a rare cancer and undergoing chemotherapy. Mother Family Medical History: Coronary Artery Disease (CAD), Hypertension, Syncope Additional Family Medical History / Comment(s): Mother is alive at age 54 and also has history of anxiety and depression. Sister(s) History Unknown: Yes Family Medical History: Hyperlipidemia General Exam Limitations: no limitations General appearance: alert, in no apparent distress Head exam: Present: atraumatic, normocephalic Eye exam: Present: normal appearance, PERRL ENT exam: Present: normal exam Neck exam: Present: normal inspection. Absent: tenderness, meningismus Respiratory exam: Present: normal lung sounds bilaterally. Absent: respiratory distress, wheezes GI/Abdominal exam: Present: soft. Absent: distended, tenderness Extremities exam: Present: normal inspection Neurological exam: Present: alert, oriented X3, CN II-XII intact. Absent: motor sensory deficit Psychiatric exam: Present: flat affect, suicidal ideation Skin exam: Present: warm, dry, intact Course Vital Signs 11/13/24 11/13/24 15:44 18:55 Temperature 97.6 F Pulse Rate 130 H 84 Respiratory 18 18 Rate Blood Pressure 114/81 122/84 O2 Sat by Pulse 98 97 Oximetry Medical Decision Making - Medical Decision Making Was pt. sent in by a medical professional or institution (RICKEY Moore, EDUCATIONAL DIRECTOR, urgent care, hospital, or intermediate...) When possible be specific @ -No Did you speak to anyone other than the patient for history (EMS, parent, family, police, friend...)? What history was obtained from this source @ -No Did you review nursing and triage notes (agree or disagree)? Why? @ -I reviewed and agree with nursing and triage notes Were old charts reviewed (outside hosp., previous admission, EMS record, old EKG, old radiological studies, urgent care reports/EKG's, intermediate records)? Report findings @ -No old charts were reviewed Differential Mental Health Depression, anxiety, bipolar, psychosis, schizophrenia, borderline personality, situational depression, adjustment disorder, behavioral disorder, brain tumor, malingering, substance abuse, encephalopathy, medication reaction, dementia, h ypothyroidism, degenerative neurologic disorder, lupus.... This is not meant to be all-inclusive list EKG interpreted by me (3pts min.). @ -Sinus tachycardia rate of 110, NE interval 141, QRS duration 90, QTc [address] segment elevation. X-rays interpreted by me (1pt min.). @ -None done CT interpreted by me (1pt min.). @ -None done U/S interpreted by me (1pt. min.). @ -None done What testing was considered but not performed or refused? (CT, X-rays, U/S, labs)? Why? @ -None What meds were considered but not given or refused? Why? @ -None Did you discuss the management of the patient with other professionals (professionals i.e. , PA, EDUCATIONAL DIRECTOR, lab, RT, psych nurse, health care social worker, rubber roller grinder operator, te acher, safety patrol officer, case finishing machine adjuster)? Give summary @ -No Was smoking cessation discussed for >3mins.? @ -No Was critical care preformed (if so, how long)? @ -No Were there social determinants of health that impacted care today? How? (Homelessness, low income, unemployed, alcoholism, drug addiction, transportation, low edu. Level, literacy, decrease access to med. care, shelter, rehab)? @ -No Was there de-escalation of care discussed even if they declined (Discuss DNR or withdrawal of care, Hospice)? DNR status @ -No What co-morbidities impacted this encounter? (DM, HTN, Smoking, COPD, CAD, C ancer, CVA, ARF, Chemo, Hep., AIDS, mental health diagnosis, sleep apnea, morbid obesity)? @ -None Was patient admitted / discharged? Hospital course, mention meds given and route, prescriptions, significant lab abnormalities, going to OR and other pertinent info. @ -34-year-old male with intentional overdose, suicide attempt. Patient uncertain of what medication he took. Patient is tachycardic with otherwise stable vitals. His ingestion was approximately 1 hour prior to arrival. He has no physical complaints. Patient has a flat affect and does endorse suicide attempt and suicidal ideation. Patient medically cleared through EKG, and complete overdose laboratory testing which is unremarkable. Patient evaluated by EPS and will be admitted for further psychiatric care. Undiagnosed new problem with uncertain prognosis? @ -No Drug Therapy requiring intensive monitoring for toxicity (Heparin, Nitro, Insulin, Cardizem)? @ -No Were any procedures done? @ -No Diagnosis/symptom? @Depression, suicide attempt, overdose Acute, or Chronic, or Acute on Chronic? @ -Acute Uncomplicated (without systemic symptoms) or Complicated (systemic symptoms)? @Complicated Side effects of treatment? @ -No Exacerbation, Progression, or Severe Exacerbation? @ -No Poses a threat to life or bodily function? How? (Chest pain, [place], [place], pneumonia, PE, COPD, DKA, ARF, appy, cholecystitis, CVA, Diverticulitis, Homicidal, Suicidal, threat to staff... and all critical care pts) @ -Yes, self-harm, suicidal - Lab Data Result diagrams: 11/13/24 16:10 11/13/24 16:10 Lab Results 11/13/24 11/13/24 11/13/24 Range/Units 16:10 16:10 16:33 WBC 9.28 (4.50-10.00) 10*3/uL RBC 5.23 (4.40-5.60) 10*6/uL Hgb 15.4 (13.0-17.0) g/dL Hct 45.6 (39.6-50.0) % MCV 87.2 (80.0-97.0) fL MCH 29.4 (27.0-32.0) pg MCHC 33.8 (32.0-37.0) g/dL Plt Count 282 (140-440) 10*3/uL MPV 10.0 (9.5-12.2) fL Immature Gran % (Auto) 0.3 % Neutrophils % 70.1 % Lymphocytes % 18.8 % Monocytes % 7.3 % Eosinophils % 3.0 % Basophils % 0.5 % Immature Gran # 0.03 (0.00-0.04) 10*3/uL Neutrophils # 6.50 (1.80-7.70) 10*3/uL Lymphocytes # 1.74 (0.90-5.00) 10*3/uL Monocytes # 0.68 (0.20-1.00) 10*3/uL Eosinophils # 0.28 (0.04-0.35) 10*3/uL Basophils # 0.05 (0.00-0.10) 10*3/uL Sodium 142 (137-145) mmol/L Potassium 4.3 (3.5-5.1) mmol/L Chloride 101 (98-107) mmol/L Carbon Dioxide 28 (22-30) mmol/L Anion Gap 13 mmol/L BUN 17 (9-20) mg/dL Creatinine 0.91 (0.66-1.25) mg/dL Est GFR (CKD-EPI)AfAm >90 (>60 ml/min/1.73 sqM) Est GFR (CKD-EPI)NonAf >90 (>60 ml/min/1.73 sqM) Glucose 113 H (74-99) mg/dL Calcium 10.0 (8.4-10.2) mg/dL Total Bilirubin 0.5 (0.2-1.3) mg/dL AST 19 (17-59) U/L ALT 18 (4-49) U/L Alkaline Phosphatase 76 (38-126) U/L Total Protein 7.5 (6.3-8.2) g/dL Albumin 4.7 (3.5-5.0) g/dL Salicylates <1.0 mg/dL Urine Opiates Screen Not Detected (NotDetected) Ur Oxycodone Screen Not Detected (NotDetected) Urine Methadone Screen Not Detected (NotDetected) Acetaminophen <10.0 ug/mL Ur Barbiturates Screen Not Detected (NotDetected) U Tricyclic Antidepress Not Detected (NotDetected) Ur Phencyclidine Scrn Not Detected (NotDetected) Ur Amphetamines Screen Not Detected (NotDetected) U Methamphetamines Scrn Not Detected (NotDetected) U Benzodiazepines Scrn Detected H (NotDetected) Urine Cocaine Screen Not Detected (NotDetected) U Marijuana (THC) Screen Not Detected (NotDetected) Serum Alcohol <10 mg/dL Disposition Clinical Impression: Depression, Drug overdose Disposition: ADMITTED IP TO THIS [facility] Condition: Stable Is patient prescribed a controlled substance at d/c from ED?: No Referrals: Haylie Hollis DO [Primary Care Provider] - 1-2 days Time of Disposition: 21:02
[2024-11-13 16:48] LABS: ALT 18 U/L (4-49); AST 19 U/L (17-59); Acetaminophen <10.0 ug/mL; African American GFR (CKD) >90 (>60 ml/min/1.73 sqM); Albumin 4.7 g/dL (3.5-5.0); Alkaline Phosphatase 76 U/L (38-126); Anion Gap 13 mmol/L; Blood Urea Nitrogen 17 mg/dL (9-20); Calcium 10.0 mg/dL (8.4-10.2); Carbon Dioxide 28 mmol/L (22-30); Chloride 101 mmol/L (98-107); Glucose 113 mg/dL (74-99); Non-African American GFR(CKD) >90 (>60 ml/min/1.73 sqM); Potassium 4.3 mmol/L (3.5-5.1); Salicylate <1.0 mg/dL; Sodium 142 mmol/L (137-145); Total Protein 7.5 g/dL (6.3-8.2)
[2024-11-13] MEDS: SODIUM CHLORIDE 0.9% 1,000 ML IV ONE (16:59)
[2024-11-13 17:00] LABS: Barbiturate Screen,Urine Not Detected (NotDetected); Benzodiazepines Screen,Urine Detected (NotDetected); Opiate Screen,Urine Not Detected (NotDetected); Oxycodone Screen, Urine Not Detected (NotDetected); Phencyclidine Screen,Urine Not Detected (NotDetected); Tricyclic Antidepressant,Urine Not Detected (NotDetected); Urn Cannabinoid Scrn Not Detected (NotDetected)
[2024-11-13 21:56] LABS: RSV Not Detected (Not Detectd)
[2024-11-14] MEDS ORDERED: LORazepam 1 MG TAB PO PRN (00:09)
[2024-11-14] MEDS ORDERED: MAG HYDROX/AL HYDROX/SIMETH 355 ML BOTTLE PO PRN (00:09)
[2024-11-14] MEDS ORDERED: IBUPROFEN 600 MG TAB PO PRN (00:09)
[2024-11-14] MEDS ORDERED: ACETAMINOPHEN TAB 325 MG TAB PO PRN (00:09)
[2024-11-14] MEDS ORDERED: MAGNESIUM HYDROXIDE 2,400 MG/30 ML CUP PO PRN (00:09)
[2024-11-14] MEDS ORDERED: HALOPERIDOL LACTATE 5 MG/ML 1 ML VIAL IM PRN (00:09)
--- NOTE | 2024-11-14 06:37 | P.HPIM ---
History of Present Illness H&P Date: 11/14/24 Chief Complaint: Suicidal attempt 34-year-old male patient with no significant past medical history was admitted under behavioral unit for suicidal attempt. Patient believes that he took a medication that is prescribed to his mother and he believes it is possibly gabapentin where he took approximately 10 capsules. EKG was done and it was not remarkable. He denies any past medical or past surgical history. His chart does mention that he has hypertension but patient denies. His blood pressure within normal limit Review of system : Negative except mentioned HPI PE: General: nontoxic, no distress, appears at stated age Derm: warm, dry, intact Head: atraumatic, normocephalic, symmetric Eyes: EOMI, anicteric sclera Mouth: no lip lesion, mucus membranes moist Cardiovascular: S1 S2 reg, no murmur, rubs, or gallops Lungs: CTA bilateral, no rales, no accessory muscle use Abdominal: soft, non-tender to palpataion, no appreciable organomegaly Extremities: no gross muscle atrophy, no edema, no contractures Neuro: Alert, Oriented, CNII-XII grossly intact, gait normal Psych: well appearing, appropriate affect II: Pupils equal and reactive, no RAPD, normal visual field and fundus III, IV, : EOM intact, no gaze preference or deviation V: normal VII: no facial asymmetry VIII: normal hearing to speech Assessment and plan: - Depression with suicidal attempt: Managed by behavioral unit Thank you for the consult Time spent : 35 min Past Medical History Past Medical History: Hypertension Additional Past Medical History / Comment(s): Severe anxiety, migraines, chronic back pain, difficulty with focusing attention. COVID 01/20/23, History of Any Multi-Drug Resistant Organisms: None Reported Past Surgical History: Orthopedic Surgery Additional Past Surgical History / Comment(s): Left wrist open reduction internal fixation, lipoma removed from right posterior shoulder. Past Anesthesia/Blood Transfusion Reactions: No Reported Reaction Smoking Status: Current every day smoker - Past Family History Father Family Medical History: Cancer, CVA/TIA, Myocardial Infarction ([place]) Additional Family Medical History / Comment(s): Father is alive at age 58. Gilma ent states he has a rare cancer and undergoing chemotherapy. Mother Family Medical History: Coronary Artery Disease (CAD), Hypertension, Syncope Additional Family Medical History / Comment(s): Mother is alive at age 54 and also has history of anxiety and depression. Sister(s) History Unknown: Yes Family Medical History: Hyperlipidemia Medications and Allergies Home Medications Medication Instructions Recorded Confirmed Type Haloperidol Decanoate [Haldol D] 100 mg IM Q14D 11/13/24 11/13/24 History lamoTRIgine [LaMICtal] See Taper PO DAILY 11/13/24 11/13/24 History Allergies Allergy/AdvReac Type Severity Reaction Status Date / Time No Known Allergies Allergy Verified 11/13/24 16:57 Physical Exam Vitals: Vital Signs Temp Pulse Pulse Resp BP BP Pulse Ox 11/14/24 02:16 97.7 F 90 16 97/67 97 11/14/24 01:27 98.1 F 91 18 104/67 98 11/13/24 21:18 83 18 118/82 96 11/13/24 18:55 84 18 122/84 97 11/13/24 15:44 97.6 F 130 H 18 114/81 98 Intake and Output 11/13/24 11/13/24 11/14/24 14:59 22:59 06:59 Other: Weight 90.718 kg 89.6 kg Results CBC & Chem 7: 11/13/24 16:10 11/13/24 16:10 Labs: Abnormal Lab Results - Last 24 Hours (Table) 11/13/24 11/13/24 Range/Units 16:10 16:33 Glucose 113 H (74-99) mg/dL U Benzodiazepines Scrn Detected H (NotDetected) Thrombosis Risk Factor Assmnt - Choose All That Apply Any of the Below Risk Factors Present?: No Other Risk Factors: No Other congenital or acquired thrombophilia - If yes, enter type in comment: No Thrombosis Risk Factor Assessment Level: Very Low Risk
--- NOTE | 2024-11-14 12:32 | P.HP ---
Psychiatric H&P - . H&P Date: 11/14/24 History & Physical: Allergies Allergy/AdvReac Type Severity Reaction Status Date / Time No Known Allergies Allergy Verified 11/13/24 16:57 Vital Signs Temp 97.7 F 11/14/24 09:00 Pulse 124 H 11/14/24 09:00 Resp 16 11/14/24 09:00 BP 99/65 11/14/24 09:00 Pulse Ox 99 11/14/24 09:00 FiO2 Intake & Output 11/13/24 11/14/24 11/14/24 18:59 06:59 18:59 Weight 90.718 kg 89.6 kg Laboratory Last Values WBC 9.28 10*3/uL (4.50-10.00) 11/13/24 16:10 RBC 5.23 10*6/uL (4.40-5.60) 11/13/24 16:10 Hgb 15.4 g/dL (13.0-17.0) 11/13/24 16:10 Hct 45.6 % (39.6-50.0) 11/13/24 16:10 MCV 87.2 fL (80.0-97.0) 11/13/24 16:10 MCH 29.4 pg (27.0-32.0) 11/13/24 16:10 MCHC 33.8 g/dL (32.0-37.0) 11/13/24 16:10 Plt Count 282 10*3/uL (140-440) 11/13/24 16:10 MPV 10.0 fL (9.5-12.2) 11/13/24 16:10 Immature Gran % (Auto) 0.3 % 11/13/24 16:10 Neutrophils % 70.1 % 11/13/24 16:10 Lymphocytes % 18.8 % 11/13/24 16:10 Monocytes % 7.3 % 11/13/24 16:10 Eosinophils % 3.0 % 11/13/24 16:10 Basophils % 0.5 % 11/13/24 16:10 Immature Gran # 0.03 10*3/uL (0.00-0.04) 11/13/24 16:10 Neutrophils # 6.50 10*3/uL (1.80-7.70) 11/13/24 16:10 Lymphocytes # 1.74 10*3/uL (0.90-5.00) 11/13/24 16:10 Monocytes # 0.68 10*3/uL (0.20-1.00) 11/13/24 16:10 Eosinophils # 0.28 10*3/uL (0.04-0.35) 11/13/24 16:10 Basophils # 0.05 10*3/uL (0.00-0.10) 11/13/24 16:10 Sodium 142 mmol/L (137-145) 11/13/24 16:10 Potassium 4.3 mmol/L (3.5-5.1) 11/13/24 16:10 Chloride 101 mmol/L (98-107) 11/13/24 16:10 Carbon Dioxide 28 mmol/L (22-30) 11/13/24 16:10 Anion Gap 13 mmol/L 11/13/24 16:10 BUN 17 mg/dL (9-20) 11/13/24 16:10 Creatinine 0.91 mg/dL (0.66-1.25) 11/13/24 16:10 Est GFR (CKD-EPI)AfAm >90 (>60 ml/min/1.73 sqM) 11/13/24 16:10 Est GFR (CKD-EPI)NonAf >90 (>60 ml/min/1.73 sqM) 11/13/24 16:10 Glucose 113 mg/dL (74-99) H 11/13/24 16:10 Calcium 10.0 mg/dL (8.4-10.2) 11/13/24 16:10 Total Bilirubin 0.5 mg/dL (0.2-1.3) 11/13/24 16:10 AST 19 U/L (17-59) 11/13/24 16:10 ALT 18 U/L (4-49) 11/13/24 16:10 Alkaline Phosphatase 76 U/L (38-126) 11/13/24 16:10 Total Protein 7.5 g/dL (6.3-8.2) 11/13/24 16:10 Albumin 4.7 g/dL (3.5-5.0) 11/13/24 16:10 Salicylates <1.0 mg/dL 11/13/24 16:10 Urine Opiates Screen Not Detected (NotDetected) 11/13/24 16:33 Ur Oxycodone Screen Not Detected (NotDetected) 11/13/24 16:33 Urine Methadone Screen Not Detected (NotDetected) 11/13/24 16:33 Acetaminophen <10.0 ug/mL 11/13/24 16:10 Ur Barbiturates Screen Not Detected (NotDetected) 11/13/24 16:33 U Tricyclic Antidepress Not Detected (NotDetected) 11/13/24 16:33 Ur Phencyclidine Scrn Not Detected (NotDetected) 11/13/24 16:33 Ur Amphetamines Screen Not Detected (NotDetected) 11/13/24 16:33 U Methamphetamines Scrn Not Detected (NotDetected) 11/13/24 16:33 U Benzodiazepines Scrn Detected (NotDetected) H 11/13/24 16:33 Urine Cocaine Screen Not Detected (NotDetected) 11/13/24 16:33 U Marijuana (THC) Screen Not Detected (NotDetected) 11/13/24 16:33 Serum Alcohol <10 mg/dL 11/13/24 16:10 Influenza Type A (PCR) Not Detected (Not Detectd) 11/13/24 21:14 Influenza Type B (PCR) Not Detected (Not Detectd) 11/13/24 21:14 RSV (PCR) Not Detected (Not Detectd) 11/13/24 21:14 SARS-CoV-2 (PCR) Not Detected (Not Detectd) 11/13/24 21:14 11/14/24 11:37 IDENTIFYING DATA: Patient is a , on Social Security disability, 34-year-old male, currently lives with his parents in a house HPI: Patient presented to the hospital yesterday and was evaluated by [facility] criminal justice social worker and according to note "Patient brought self to ER related to suicidal ideations. Patient assessed in ER9 from [id number]. Patient observed to be laying in hospital stretcher, wearing hospital safety gown, calm and cooperative. Patient agreeable to speak to newswriter. Patient verbalizes "I snapped and I just wanted to go to sleep and never wake up". Patient verbalizes overdosing on a sue dful of unknown medications. Patient verbalizes remaining suicidal thoughts. Patient states his suicidal thoughts are related to auditory hallucinations. States his auditory hallucinations are "repeating my thoughts". Patient verbalizes that he feels like he cannot escape his auditory and visual hallucinations which worsen his suicidal ideations. Patient denies homicidal ideations. Patient verbalizes feeling "attached to the government like an experiment" and states "It feels like I have a radio in my head". Patient verbalizes recently struggling to cope with living with his parents, no job or income, and struggling [facility]. Patient denies alcohol or substance use. Patient verbalizes smoking 1/2ppd since age 22. Patient verbalizes his auditory hallucinations never go away, states he has the best response to Invega. States he feels like the haldol does not improve his symptoms at all. Patient verbalizes poor sleep r/t hallucinations. " Patient w as seen today for psychiatric assessment in the office. Patient appeared to be sitting in the chair, poor eye contact, endorsing feeling depressed. Claims that his parents have been going through a divorce and he does not know what will happen to him. Claims that he has been feeling more depressed and anxious lately. States that he is having more auditory hallucinations claims that he "they are talking in third person commentating my life". He states that he also feels a "internal vibration" which has been going on for the past month or so. He states that "I feel out of control". Claims that he is having suicidal thoughts, no specific plan at this time. States that his sleep has been poor appetite has been fair. At this time is denying any visual hallucinations denying any homicidal ideations intent or plan. Claims that he is sober from any recreational drugs except for using cigarettes. His urine drug screen is positive for benzodiazepines. PAST PSYCHIATRIC HISTORY: Patient states that he has a history of schizoaffective disorder and substance abuse, benzodiazepine dependence . History of numerous medications the past including Abilify, Vistaril, Zoloft, Benadryl, Xanax, Cymbalta, Prolixin, Klonopin, and trazodone. Patient is currently on Lamictal, Haldol D 100 mg q. 14 days. He was last hospitalized in our psychiatric unit in July 2024. He is currently on an active treatment order, he goes to [facility] once a month, has been seeing Jil and nurse practitioner. He reports multiple attempts at suicide in the past. Last dose of injection was given on 10/28. PMH: Past Medical History: Hypertension Additional Past Medical History / Comment(s): Severe anxiety, migraines, chronic back pain, difficulty with focusing attention. History of Any Multi-Drug Resistant Organisms: None Reported Past Surgical History: Orthopedic Surgery Additional Past Surgical History / Comment(s): Left wrist open reduction internal fixation, lipoma removed from right posterior shoulder. Past Anesthesia/Blood Transfusion Reactions: No Reported Reaction Past Psychological History: ADD/ADHD, Anxiety, Depression, Schizophrenia Smoking Status: Current every day smoker Past Alcohol Use History: None Reported Past Drug Use History: None Reported ALLERGIES: NO KNOWN DRUG ALLERGIES CHEMICAL DEPENDENCY HISTORY: as per HPI FAMILY PSYCHIATRIC/SUBSTANCE USE HISTORY: The patient reports that his mother has anxiety, depression, and ADHD. He reports his sister and father have anxiety and depression. SOCIAL HISTORY: Patient was born and raised in [place], [place]. He attended some college. He is currently unemployed and receives Social Security disability. He has a history of numerous incarcerations. Currently living with his parents in a house. He has been previously charged with an OWI and larceny in the past. He is currently after being from [id number]. MENTAL STATUS EXAM: General Appearance: Patient appears to be stated age is alert, directable, and attempts to cooperate. Patient appears to have fair hygiene and grooming. Short hair, several tattoos. Behavior: Patient is seated without any agitated behavior. Eye contact is appropriate. Poor eye contact Speech: Patient's speech is fluent and nonpressured. Soft tone Mood/Affect: Patient reports their mood is "depressed" affect is incongruent Suicidality/Homicidality: Patient denies having any homicidal ideation intent or plan. Admits to having suicidal ideation, no specific plan Perceptions: Patient denies any visual hallucinations and admits to having auditory hallucinations Though content/process: There is no evidence of any delusional thought content and thought process is linear and goal-directed. Memory and concentration: AOX3, grossly intact for the purposes of this session. Can spell "WORLD" backwards Judgment and insight: poor STRENGTHS/WEAKNESSES: Strength is that the patient is resilient and has housing. Weakness is that the patient has a long history of substance abuse. And also history of chronic mental illness INTELLECT: average IMPRESSIONS: Schizoaffective disorder Anxiety disorder, unspecified Nicotine dependence PLAN: -Patient is admitted under involuntary status to [facility]HU for stabilization of psychiatric symptoms and safety. Patient is currently on an active court order f or treatment which expires on 02/21/2025. -Medications : Cymbalta 30 mg by mouth daily for depression/anxiety, Invega 3 mg by mouth at bedtime for schizoaffective disorder, propranolol 20 mg daily for akathisia/restlessness. Will discontinue Haldol D at this time. -Ativan and Haldol PRN for agitation/aggression -Patient was informed of the risks, benefits and side effects of the medication and patient verbally did consent to taking the medications. Patient did sign med consent form and was placed in chart, offered written information on medication he declined it. -Internal Medicine consult to perform medical evaluation and physical. -NRT - nicotine patch -SW on board for discharge planning. Encourage patient to participate in groups to work on coping skills. 11/14/24 12:23 11/14/24 12:24 11/14/24 12:27
[2024-11-14] MEDS: NICOTINE 21MG/24HR PATCH TRANSDERM SCH (12:46)
[2024-11-14] MEDS: PROPRANOLOL 20 MG TAB PO SCH (12:46)
[2024-11-14] MEDS: PALIPERIDONE 3 MG TAB.ER.24 PO SCH (20:32)
[2024-11-15 07:28] LABS: Basophils # (A) 0.07 10*3/uL (0.00-0.10); Basophils % (A) 0.9 %; Eosinophils # (A) 0.34 10*3/uL (0.04-0.35); Eosinophils % (A) 4.2 %; HCT 43.7 % (39.6-50.0); HGB 14.6 g/dL (13.0-17.0); Lymphocytes # (A) 2.15 10*3/uL (0.90-5.00); Lymphocytes % (A) 26.7 %; MCH 29.7 pg (27.0-32.0); MCHC 33.4 g/dL (32.0-37.0); MCV 88.8 fL (80.0-97.0); Monocytes # (A) 0.71 10*3/uL (0.20-1.00); Monocytes % (A) 8.8 %; Neutrophils # (A) 4.73 10*3/uL (1.80-7.70); Neutrophils % (A) 58.9 %; Platelet Count 264 10*3/uL (140-440); RBC 4.92 10*6/uL (4.40-5.60); RDW 12.8 % (11.5-14.5); WBC 8.04 10*3/uL (4.50-10.00)
[2024-11-15 08:02] LABS: ALT 16 U/L (4-49); AST 18 U/L (17-59); African American GFR (CKD) >90 (>60 ml/min/1.73 sqM); Albumin 4.3 g/dL (3.5-5.0); Alkaline Phosphatase 66 U/L (38-126); Anion Gap 9 mmol/L; Blood Urea Nitrogen 18 mg/dL (9-20); Calcium 9.6 mg/dL (8.4-10.2); Carbon Dioxide 28 mmol/L (22-30); Chloride 103 mmol/L (98-107); Glucose 97 mg/dL (74-99); Non-African American GFR(CKD) >90 (>60 ml/min/1.73 sqM); Potassium 4.7 mmol/L (3.5-5.1); Sodium 140 mmol/L (137-145); Total Protein 6.9 g/dL (6.3-8.2)
--- NOTE | 2024-11-15 12:35 | P.PN ---
Progress Note - Text Progress Note Date: 11/15/24 Chief complaint: Suicidal thoughts Interval History: Patient was seen lying in bed easily awake able and was directable and agreeable to speak with health underwriter in the office. The patient notes that he continues to have auditory hallucinations. He describes them as outside his head, unfamiliar, mal e and female, constant, no alleviating factors, anxiety making him worse and voices telling him and his thoughts in a cynical manner. He notes last night he had visual hallucinations of [place]. He denies any ongoing paranoia. He notes that his depression is severe and he has suicidal thoughts. He notes the plan is to overdose. He has a history of 1 prior overdose. He notes that his energy is poor as well as his concentration. He notes that his appetite is normal. Mental Status Exam: General Appearance: Patient appears to be stated age is alert, directable, and cooperative. Behavior: Patient appeared to be somewhat flat and calm. Speech: Patient's speech is fluent and nonpressured. Mood/Affect: Mood is improving mildly, affect is congruent and constricted. Suicidality/Homicidality: The patient expressed suicidal thoughts. Perceptions: The patient is having visual hallucinations as well as auditory hallucinations Though content/process: The patient denies any paranoia and his thought processes linear Memory and concentration: AOX3, grossly intact for the purposes of this session Judgment and insight: Improving mildly Diagnoses: Schizoaffective disorder Anxiety disorder, unspecified Nicotine dependence Assessment: The patient continues to have suicidal thoughts with the plan. Additionally he remains psychotic. Visual hallucinations appear more to be atypical for sc hizophrenia and more typical for drug-induced psychosis but patient has not used any narcotics for years. The patient just started the Invega and will need time to take effect. At this time this is the least restrictive level of care. PLAN: -Patient is admitted under involuntary status to [facility] for stabilization of psychiatric symptoms and safety. Patient is currently on an active court order for treatment which expires on 02/21/2025. -Medications : Cymbalta 30 mg by mouth daily for depression/anxiety, Invega 3 mg by mouth at bedtime for schizoaffective disorder, propranolol 20 mg daily for akathisia/restlessness. Will discontinue Haldol D at this time. -Ativan and Haldol PRN for agitation/aggression -Patient was informed of the risks, benefits and side effects of the medication and patient verbally did consent to taking the medications. Patient did sign med consent form and was placed in chart, offered written information on medication he declined it. -Internal Medicine consult to perform medical evaluation and physical. -NRT - nicotine patch -SW on board for discharge planning. Encourage patient to participate in groups to work on coping skills.
[2024-11-15 14:49] LABS: Cholesterol 132.00 mg/dL (0.00-200.00); HDL Cholesterol 27.40 mg/dL (40.00-60.00); LDL Cholesterol,Calculated 85.2 mg/dL (0.0-131.0); Triglycerides 96.90 mg/dL (0.00-149.00); VLDL Calculation 19.38 mg/dL (5.00-40.00)
[2024-11-15] MEDS: LORazepam 1 MG TAB PO PRN (17:57)
--- NOTE | 2024-11-16 09:04 | P.PN ---
Progress Note - Text Progress Note Date: 11/16/24 Chief complaint: Suicidal thoughts Interval History: Patient was seen lying in bed easily awake able and was directable and agreeable to speak with commercial loan underwriter in the office. The patient notes that he had a panic attack last night because the air conditioner unit was vibrating and making his auditory hallucinations worse. He notes that they were extremely intense. He denies any specific statements from the voices. He notes no side effects with the Invega and does not feel that it is being very effective at this time. He denies any visual hallucinations last night but notes that he is feeling slightly paranoid from the hallucinations. He notes that his depression is moderate and his anxiety is severe. He denies any suicidal or homicidal ideations. He notes that he slept last night but he is suffering from low energy and concentration. Describes his appetite is fair. Mental Status Exam: General Appearance: Patient appears to be stated age is alert, directable, and cooperative. Behavior: Patient appeared to be somewhat flat and calm. Speech: Patient's speech is fluent and nonpressured. Mood/Affect: Mood is improving mildly, affect is congruent and constricted. Suicidality/Homicidality: The patient is denying any suicidal or homicidal ideations. Perceptions: The patient is having auditory hallucinations but denies any visual hallucinations. Though content/process: The patient is having some mild paranoia and his thought processes linear Memory and concentration: AOX3, grossly intact for the purposes of this session Judgment and insight: Poor/Poor Diagnoses: Schizoaffective disorder Anxiety disorder, unspecified Nicotine dependence Assessment: The patient has have yet had a positive effect of the Invega. At this time we will increase it due to the patient not having any side effects with the medication. He is continuing to have psychotic symptoms but has had resolution to suicidal thoughts and visual hallucinations. PLAN: -Patient is admitted under involuntary status to [facility] for stabilization of psychiatric symptoms and safety. Patient is currently on an active court order for treatment which expires on 02/21/2025. -Medications : Cymbalta 30 mg by mouth daily for depression/anxiety,Increase Invega 3 mg by mouth twice daily for schizoaffective disorder, propranolol 20 mg daily for akathisia/restlessness. Will discontinue Haldol D at this time. -Ativan and Haldol PRN for agitation/aggression -Patient was informed of the risks, benefits and side effects of the medication and patient verbally did consent to taking the medications. Patient did sign med consent form and was placed in chart, offered written information on medication he declined it. -Internal Medicine consult to perform medical evaluation and physical. -NRT - nicotine patch -SW on board for discharge planning. Encourage patient to participate in groups to work on coping skills.
--- NOTE | 2024-11-17 11:40 | P.PN ---
Progress Note - Text Progress Note Date: 11/17/24 Interval History: Patient was seen lying in bed easily awake able and was directable and agreeable to speak with communications writer in the office. Patient relates to have poor hygiene and grooming. He claims that his anxiety is still rather high. Claims that he is feeling less restless at this time however has been taking his medications. Claims that he is still hearing voices giving him a "commentary of my life". States that they are still fairly intrusive and bothersome. Claims that he has been having keeping himself for hygiene program. Has been eating, claims that his sleep has been on and off. He denies any suicidal or homicidal ideations. He denies any visual hallucinations at this time. Mental Status Exam: General Appearance: Patient appears to be stated age is alert, directable, and cooperative. Behavior: Patient appeared to be somewhat flat and calm. Speech: Patient's speech is fluent and nonpressured. soft tone Mood/Affect: Mood is improving mildly, affect is congruent and constricted. Suicidality/Homicidality: The patient is denying any suicidal or homicidal ideations. Perceptions: The patient is having auditory hallucinations but denies any visual hallucinations. Though content/process: The patient is having some mild paranoia and his thought processes linear, concrete. Memory and concentration: AOX3, grossly intact for the purposes of this session Judgment and insight: Poor/Poor, improving mildly Diagnoses: Schizoaffective disorder Anxiety disorder, unspecified Nicotine dependence PLAN: -Patient is admitted under involuntary status to [facility] for stabilization of psychiatric symptoms and safety. Patient is currently on an active court order for treatment which expires on 02/21/2025. -Medications : increase Cymbalta 30 mg BID for depression/anxiety, Increase Invega 3 mg by mouth twice daily for schizoaffective disorder, propranolol 20 mg daily for akathisia/restlessness. -Ativan and Haldol PRN for agitation/aggression -NRT - nicotine patch -SW on board for discharge planning. Encourage patient to participate in groups to work on coping skills. likely discharge sunday if patient is improving. patient will likely need to be transitioned onto [facility] to help ensure complaince.
[2024-11-17] MEDS: PALIPERIDONE 3 MG TAB.ER.24 PO SCH (20:21)
--- NOTE | 2024-11-18 10:34 | P.PN ---
Progress Note - Text Progress Note Date: 11/18/24 Interval History: Patient was seen lying in bed easily awake able and was directable and agreeable to speak with insurance underwriter sales in the office. Patient continues to be disheveled in appearance, eye contact is improving mildly since yesterday. Claims that he is feeling a bit better today with regards to his mood however continues to state that he does have anxiety. Claims that he is tolerating medications fairly well we spoke about increasing them. Claims that he continues to mainly isolated in his room not going to many groups. States that he slept fairly last night has a fair appetite at this time. Insight and judgment mildly improving continues to be chronically poor. He denies any suicidal or homicidal ideations. He denies any visual hallucinations at this time. Continues to state that he is hearing voices however claims that they are a bit better since yesterday Mental Status Exam: General Appearance: Patient appears to be stated age is alert, directable, and cooperative. Behavior: Patient appeared to be somewhat flat and calm. Eye contact improving mildly Speech: Patient's speech is fluent and nonpressured. soft tone Mood/Affect: Mood is improving mildly, affect is congruent and constricted. Improving mildly Suicidality/Homicidality: The patient is denying any suicidal or homicidal ideations. Perceptions: The patient is having auditory hallucinations, improving mildly but denies any visual hallucinations. Though content/process: The patient is having some mild paranoia and his thought processes linear, concrete. Memory and concentration: AOX3, grossly intact for the purposes of this session Judgment and insight: Poor/Poor, improving mildly Diagnoses: Schizoaffective disorder Anxiety disorder, unspecified Nicotine dependence PLAN: -Patient is admitted under involuntary status to [facility] for stabilization of psychiatric symptoms and safety. Patient is currently on an active court order for treatment which expires on 02/21/2025. -Medications : increase Cymbalta 30 mg daily +60 mg nightly for depression/anxiety, Increase Invega 3 mg daily +6 mg nightly for schizoaffective disorder, propranolol 20 mg daily for akathisia/restlessness. -Ativan and Haldol PRN for agitation/aggression -NRT - nicotine patch -SW on board for discharge planning. Encourage patient to participate in groups to work on coping skills. likely discharge -Sunday if patient is improving. patient will likely need to be transitioned onto [facility] to help ensure complaince.
[2024-11-18] MEDS: PALIPERIDONE 6 MG TAB.ER.24 PO SCH (20:39)
[2024-11-18] MEDS: DULoxetine HCL 60 MG CAPSULE.DR PO SCH (20:39)
[2024-11-19] MEDS: PALIPERIDONE 3 MG TAB.ER.24 PO SCH (08:25)
--- NOTE | 2024-11-19 11:13 | P.PN ---
Progress Note - Text Progress Note Date: 11/19/24 Interval History: Patient was seen lying in bed easily awake able and was directable and agreeable to speak with instructional writer in the office. Patient appears to have improvement in his eye contact. Claims that he went to some groups yesterday. Claims that he is doing a bit better with regard to his mood and anxiety today. Claims that he is still hearing voices however in a improved mildly since yesterday. He claims that he is going to go back on the long-acting injection. Not reporting any si gnificant side effects at this time. Claims that he slept fairly last night. Has been up for meals. Insight and judgment mildly improving continues to be chronically poor however improving. He denies any suicidal or homicidal ideations. He denies any visual hallucinations at this time. Mental Status Exam: General Appearance: Patient appears to be stated age is alert, directable, and cooperative. Behavior: Patient appeared to be somewhat flat and calm. Eye contact improving mildly Speech: Patient's speech is fluent and nonpressured. soft tone Mood/Affect: Mood is improving mildly, affect is congruent and constricted. Improving mildly Suicidality/Homicidality: The patient is denying any suicidal or homicidal ideations. Perceptions: The patient is having auditory hallucinations, improving mildly but denies any visual hallucinations. Though content/process: The patient is having some mild paranoia and his thought processes linear, concrete. Improving mildly Memory and concentration: AOX3, grossly intact for the purposes of this session Judgment and insight: Poor/Poor, improving mildly Diagnoses: Schizoaffective disorder Anxiety disorder, unspecified Nicotine dependence PLAN: -Patient is admitted under involuntary status to [facility] for stabilization of psychiatric symptoms and safety. Patient is currently on an active court order for treatment which expires on 02/21/2025. -Medications : increase Cymbalta 60 mg daily +60 mg nightly for depression/anxiety, Increase Invega 6 mg daily +6 mg nightly for schizoaffective disorder, propranolol 20 mg daily for akathisia/restlessness. Will need to transition patient wanted Invega Sustenna prior to discharge. -Ativan and Haldol PRN for agitation/aggression -NRT - nicotine patch -SW on board for discharge planning. Encourage patient to participate in groups to work on coping skills. likely discharge Sunday vs sunday if patient is improving. patient will likely need to be transitioned onto [facility] to help ensure complaince.
[2024-11-19 22:39] VITALS: RESP 18
[2024-11-20] MEDS: DULoxetine HCL 60 MG CAPSULE.DR PO SCH (08:22)
[2024-11-20] MEDS: PALIPERIDONE 6 MG TAB.ER.24 PO SCH (08:23)
[2024-11-20 08:25] VITALS: BP 104/70; PULSE 115; TEMP 98.2
--- NOTE | 2024-11-20 11:21 | P.DS ---
Providers Date of admission: 11/13/24 23:52 Expected date of discharge: 11/20/24 Attending physician: Alejo Birmingham MD Consults: 11/14/24 00:09 Consult Physician Routine Consulting Provider: Thomas Noguera Consult Reason/Comments: History and Physical, New Admission Do you want consulting provider notified?: Yes Primary care physician: Haylie Hollis, DO - Discharge Diagnosis(es) (1) Schizoaffective disorder Current Visit: Yes Status: Acute Priority: High (2) Anxiety disorder Current Visit: Yes Status: Acute Priority: Medium (3) Nicotine dependence Current Visit: Yes Status: Acute Priority: Low Hospital Course: Admission HPI: Admission note was completed by adjusto writer operator "Patient is a , on Social Security disability, 34-year-old male, currently lives with his parents in a house. Patient presented to the hospital yesterday and was evaluated by EPS social work assistant and according to note "Patient brought self to ER related to suicidal ideations. Patient assessed in ER9 from [id number]. Patient observed to be laying in hospital stretcher, wearing hospital safety gown, calm and cooperative. Patient agreeable to speak to adjusto writer operator. Patient verbalizes "I snapped and I just wanted to go to sleep and never wake up". Patient verbalizes overdosing on a handful of unknown medications. Patient verbalizes remaining suicidal thoughts. Patient states his suicidal thoughts are related to auditory hallucinations. States his auditory hallucinations are "repeating my thoughts". Patient verbalizes that he feels like he cannot escape his auditory and visual hallucinations which worsen his suicidal ideations. Patient denies homicidal ideations. Patient verbalizes feeling "attached to the government like an experiment" and states "It feels like I have a radio in my head". Patient verbalizes recently struggling to cope with living with his parents, no job or income, and struggling after recently being released from incarcaration. Patient denies alcohol or substance use. Patient verbalizes smoking 1/2ppd since age 22. Patient verbalizes his auditory hallucinations never go away, states he has the best response to Invega. States he feels like the haldol does not improve his symptoms at all. Patient verbalizes poor sleep r/t hallucinations. " Patient was seen today for psychiatric assessment in the office. Patient appeared to be sitting in the chair, poor eye contact, endorsing feeling depressed. Claims that his parents have been going through a divorce and he does not know what will happen to him. Claims that he has been feeling more depressed and anxious lately. States that he is having more auditory hallucinations claims that he "they are talking in third person commentating my life". He states that he also feels a "internal vibration" which has been going on for the past month or so. He states that "I feel out of control". Claims that he is having suicidal thoughts, no specific plan at this time. States that his sleep has been poor appetite has been fair. At this time is denying any visual hallucinations denying any homicidal ideations intent or plan. Claims that he is sober from any recreational drugs except for using cigarettes. His urine drug screen is positive for benzodiazepines." Hospital course: Upon admission to the unit. Patient is currently on a court order. Patient was initially depressed and anxious however with time and treatment patient got along well with other patients on the unit and followed unit protocol. Patient was compliant with the medications and denied any side effects throughout hospital course. Patient was started on Invega p.o. increased to a dose of 6 mg twice daily for psychosis/mood stabilization. Patient will receive Invega Sustenna 234 mg IM to help ensure compliance and symptom stability on 11/20 prior to discharge. Cymbalta increased to a dose of 60 mg twice daily. Patient spoke of his stressors however did not participate much in group/activity therapy and mainly kept to themselves during hospitalization. Patient was also seen by medical team for history and physical exam. Throughout the course of the hospitalization patient gradually improved with regards to mood, anxiety, psychosis, sleep and returned back to their baseline level of functioning. On the day of discharge patient denied any suicidal or homicidal ideations intent or plan denied any auditory or visual hallucinations. Patient endorsed wanting to live for their health and family. The patient denied any access to guns or weapons. Patient denied any paranoia and did not endorse any delusions. Patient does not have a significant history of substance abuse and was counseled on abstaining from all substances including alcohol and marijuana. Patient was also counseled on the medications and need for regular compliance and was encouraged to follow-up with their outpatient appointment for mental health and also for primary care. Prior to discharge a family meeting will be arranged by social work assistant to answer any questions and ensure safety upon discharge incuding making sure that guns/weapons are either removed from the home or locked away. Mental status exam: General Appearance: Patient appears to be tall, several tattoos, short hair, stated age is alert, pleasant, and cooperative. Patient is in no acute distress and has improved hygiene and grooming Behavior: Patient is calmly seated without any agitated behavior. Speech: Patient's speech is fluent and nonpressured. Mood/Affect: Patient reports their mood is "good", affect is congruent and euthymic. Suicidality/Homicidality: Patient denies having any suicidal or homicidal ideat ion intent or plan. Perceptions: Patient denies any auditory or visual hallucinations. Though content/process: There is no evidence of any delusional thought content and thought process is linear and goal-directed. Memory and concentration: AOX3, grossly intact for the purposes of this session. Can spell "WORLD" backwards correctly. Judgment and insight: Chronically poor, however has improved with guarded prognosis Impression: Schizoaffective disorder Anxiety disorder unspecified Nicotine dependence Plan: -Continue with discharge today as patient has improved and stabilized psychiatrically and is not currently an imminent threat to themself and/or others. [Patient will remain at chronically elevated risk for harm to self and/or others due to their impulsivity and and chornic mental illness. -Continue medications: cymbalta 60 mg bid for anxiety/mood, invega 6 mg daily for 3 more days then d/c. Patient was given 234 mg IM of Invega Sustenna on day of discharge 11/20 next dose of 156 mg IM will be due 11/28 at [facility] and monthly maintenance dose will be due at [facility] on 12/26 -Patient was counseled on the need for medication compliance and appropriate follow-up at mental health and also primary care for medical issues. Patient verbalized understanding and agreed. -Social work to help coordinate patients discharge today arrange for and conduct family meeting to ensure safety upon discharge and answer any questions/concerns. also to ensure safe home environment that guns/weapons are either removed from the home or locked away. Social work also to arrange for patients follow up appointments with [facility] for psychiatric care along with follow up with primary care provider. -Patient counseled on abstaining from recreational drugs and marijuana and alcohol. Was informed/educated on the adverse effects on their physical and mental health. Patient verbally agreed and understood. -Patient was instructed to return to the hospital or seek immediate medical care if their psychiatric or medical symptoms do worsen or reoccur. Allergies Allergy/AdvReac Type Severity Reaction Status Date / Time No Known Allergies Allergy Verified 11/13/24 16:57 Laboratory Results WBC 8.04 10*3/uL (4.50-10.00) 11/15/24 07:03 RBC 4.92 10*6/uL (4.40-5.60) 11/15/24 07:03 Hgb 14.6 g/dL (13.0-17.0) 11/15/24 07:03 Hct 43.7 % (39.6-50.0) 11/15/24 07:03 MCV 88.8 fL (80.0-97.0) 11/15/24 07:03 MCH 29.7 pg (27.0-32.0) 11/15/24 07:03 MCHC 33.4 g/dL (32.0-37.0) 11/15/24 07:03 Plt Count 264 10*3/uL (140-440) 11/15/24 07:03 MPV 10.1 fL (9.5-12.2) 11/15/24 07:03 Immature Gran % (Auto) 0.5 % 11/15/24 07:03 Neutrophils % 58.9 % 11/15/24 07:03 Lymphocytes % 26.7 % 11/15/24 07:03 Monocytes % 8.8 % 11/15/24 07:03 Eosinophils % 4.2 % 11/15/24 07:03 Basophils % 0.9 % 11/15/24 07:03 Immature Gran # 0.04 10*3/uL (0.00-0.04) 11/15/24 07:03 Neutrophils # 4.73 10*3/uL (1.80-7.70) 11/15/24 07:03 Lymphocytes # 2.15 10*3/uL (0.90-5.00) 11/15/24 07:03 Monocytes # 0.71 10*3/uL (0.20-1.00) 11/15/24 07:03 Eosinophils # 0.34 10*3/uL (0.04-0.35) 11/15/24 07:03 Basophils # 0.07 10*3/uL (0.00-0.10) 11/15/24 07:03 Sodium 140 mmol/L (137-145) 11/15/24 07:03 Potassium 4.7 mmol/L (3.5-5.1) 11/15/24 07:03 Chloride 103 mmol/L (98-107) 11/15/24 07:03 Carbon Dioxide 28 mmol/L (22-30) 11/15/24 07:03 Anion Gap 9 mmol/L 11/15/24 07:03 BUN 18 mg/dL (9-20) 11/15/24 07:03 Creatinine 0.91 mg/dL (0.66-1.25) 11/15/24 07:03 Est GFR (CKD-EPI)AfAm >90 (>60 ml/min/1.73 sqM) 11/15/24 07:03 Est GFR (CKD-EPI)NonAf >90 (>60 ml/min/1.73 sqM) 11/15/24 07:03 Glucose 97 mg/dL (74-99) 11/15/24 07:[address] Glu mg/dL 103 mg/dL 11/15/24 07:03 Hemoglobin A1c 5.2 % (<=6.0) 11/15/24 07:03 Calcium 9.6 mg/dL (8.4-10.2) 11/15/24 07:03 Total Bilirubin 0.5 mg/dL (0.2-1.3) 11/15/24 07:03 AST 18 U/L (17-59) 11/15/24 07:03 ALT 16 U/L (4-49) 11/15/24 07:03 Alkaline Phosphatase 66 U/L (38-126) 11/15/24 07:03 Total Protein 6.9 g/dL (6.3-8.2) 11/15/24 07:03 Albumin 4.3 g/dL (3.5-5.0) 11/15/24 07:03 Triglycerides 96.90 mg/dL (0.00-149.00) 11/15/24 07:03 Cholesterol 132.00 mg/dL (0.00-200.00) 11/15/24 07:03 LDL Cholesterol, Calc 85.2 mg/dL (0.0-131.0) 11/15/24 07:03 VLDL Cholesterol, Calc 19.38 mg/dL (5.00-40.00) 11/15/24 07:03 HDL Cholesterol 27.40 mg/dL (40.00-60.00) L 11/15/24 07:03 Cholesterol/HDL Ratio 4.82 Ratio 11/15/24 07:03 TSH 0.554 mIU/L (0.465-4.680) 11/15/24 07:03 Salicylates <1.0 mg/dL 11/13/24 16:10 Urine Opiates Screen Not Detected (NotDetected) 11/13/24 16:33 Ur Oxycodone Screen Not Detected (NotDetected) 11/13/24 16:33 Urine Methadone Screen Not Detected (NotDetected) 11/13/24 16:33 Acetaminophen <10.0 ug/mL 11/13/24 16:10 Ur Barbiturates Screen Not Detected (NotDetected) 11/13/24 16:33 U Tricyclic Antidepress Not Detected (NotDetected) 11/13/24 16:33 Ur Phencyclidine Scrn Not Detected (NotDetected) 11/13/24 16:33 Ur Amphetamines Screen Not Detected (NotDetected) 11/13/24 16:33 U Methamphetamines Scrn Not Detected (NotDetected) 11/13/24 16:33 U Benzodiazepines Scrn Detected (NotDetected) H 11/13/24 16:33 Urine Cocaine Screen Not Detected (NotDetected) 11/13/24 16:33 U Marijuana (THC) Screen Not Detected (NotDetected) 11/13/24 16:33 Serum Alcohol <10 mg/dL 11/13/24 16:10 Influenza Type A (PCR) Not Detected (Not Detectd) 11/13/24 21:14 Influenza Type B (PCR) Not Detected (Not Detectd) 11/13/24 21:14 RSV (PCR) Not Detected (Not Detectd) 11/13/24 21:14 SARS-CoV-2 (PCR) Not Detected (Not Detectd) 11/13/24 21:14 Vital Signs Temp 98.2 F 11/20/24 08:22 Pulse 115 H 11/20/24 08:22 Resp 18 11/20/24 08:22 BP 104/70 07/10/25 08:22 Pulse Ox 100 11/20/24 08:22 FiO2 Patient Condition at Discharge: Stable Plan - Discharge Summary Discharge Rx Participant: Yes New Discharge Prescriptions: New traZODone HCL [Desyrel] 100 mg PO HS PRN 30 Days #30 tab PRN Reason: Insomnia Propranolol [Inderal] 20 mg PO DAILY 30 Days #30 tab Paliperidone [Invega] 6 mg PO DAILY 3 Days #3 tab Paliperidone IM [Invega Sustenna] 156 mg IM ONCE #1 ml Paliperidone IM [Invega Sustenna] 234 mg IM QMONTHLY #1 each DULoxetine HCL [Cymbalta] 60 mg PO BID 30 Days #60 cap Nicotine 21Mg/24Hr Patch [Habitrol] 1 patch TRANSDERM DAILY 14 Days #14 patch Ibuprofen [Motrin] 600 mg PO Q6HR PRN tab PRN Reason: Moderate Pain (Scale 4 To 6) Discontinued lamoTRIgine [LaMICtal] See Taper PO DAILY Haloperidol Decanoate [Haldol D] 100 mg IM Q14D Discharge Medication List DULoxetine HCL [Cymbalta] 60 mg PO BID 30 Days #60 cap 11/20/24 [Rx] Ibuprofen [Motrin] 600 mg PO Q6HR PRN tab 11/20/24 [Rx] Nicotine 21Mg/24Hr Patch [Habitrol] 1 patch TRANSDERM DAILY 14 Days #14 patch 11/20/24 [Rx] Paliperidone IM [Invega Sustenna] 156 mg IM ONCE #1 ml 11/20/24 [Rx] Paliperidone IM [Invega Sustenna] 234 mg IM QMONTHLY #1 each 11/20/24 [Rx] Paliperidone [Invega] 6 mg PO DAILY 3 Days #3 tab 11/20/24 [Rx] Propranolol [Inderal] 20 mg PO DAILY 30 Days #30 tab 11/20/24 [Rx] traZODone HCL [Desyrel] 100 mg PO HS PRN 30 Days #30 tab 11/20/24 [Rx] Follow up Appointment(s)/Referral(s): [facility] [Outside] - 12/03/24 11:00 am (Please add 12-03-24 at 11:00 with Diane Tomlinson [facility]) Faruque,Rubaiya, DO [Primary Care Provider] - 1-2 days Activity/Diet/Wound Care/Special Instructions: [facility] Discharge Info Avoid the use of street drugs and alcohol. Take all medications as prescribed. When you are in need of refills on your medications, please contact your outpatient medical provider and/or outpatient psychiatrist. Please go to your scheduled outpatient appointments for aftercare treatment. If symptoms return or become worse, call the crisis line at or and/or visit the nearest emergency room for assistance. [place] [facility] Crisis Lifeline - call or text [phone]. Discharge Disposition: HOME SELF-CARE
[2024-11-20] MEDS: PALIPERIDONE IM 234 MG/1.5 ML SYG IM ONE (12:12)
== END 2024-11-20 13:12 | disposition home or self-care (01) | DRG 761 ==
LOC: EC 15:42 → 3MHU 23:52
PROVIDERS: ADMIT Psychiatry & Neurology Psychiatry; ATTEND Psychiatry & Neurology Psychiatry
DX: F25.9 Schizoaffective disorder, unspecified (principal); F17.210 Nicotine dependence, cigarettes, uncomplicated; F32.A Depression, unspecified; F41.0 Panic disorder [episodic paroxysmal anxiety]; F90.9 Attention-deficit hyperactivity disorder, unspecified type; I10 Essential (primary) hypertension; Z56.0 Unemployment, unspecified; Z79.899 Other long term (current) drug therapy; R45.851 Suicidal ideations; Z11.52 Encounter for screening for COVID-19
CPT/HCPCS: 36415; 80053; 80061; 80143; 80179; 80306; 80320; 82075; 83036; 84443; 85025; 87636; 93005; 99285